=== PATIENT | female | born 1950 | race Caucasian/White ===

== ENCOUNTER 2017-10-18 19:23 | Observation (INO) | payer OTHER ==
--- OUTSIDE RECORDS SUMMARY | 2017-10-18 19:24 | XMS REPORT ---
:1950 Author Organization [facility] Address [address] [place] [address] Care Team Providers Name Role Phone JORGE ESPINOZA Primary Care Provider Unavailable JORGE ESPINOZA Unavailable Unavailable Problems This patient has no known problems. Allergies, Adverse Reactions, Alerts This patient has no known allergies or adverse reactions. Medications This patient has no known medications. Results Test Description Test Time Test Comments Text Results Atomic Results Result Comments CBC with Differential 2017-03-30 23:33:00 Test Item Value Reference Range Comments WBC (test code=WBC) 10.6 K/cumm 4.4-10.5 RBC (test code=RBC) 4.59 M/cumm 3.75-5.20 Hemoglobin (test code=HGB) 14.4 gm/dL 12.2-14.8 Hematocrit (test code=HCT) 45.9 % 36.5-44.4 MCV (test code=MCV) 100.1 fL 80-100 MCH (test code=MCH) 31.3 pg 27.0-32.5 MCHC (test code=MCHC) 31.3 g/dL 32.0-37.5 RDW (test code=RDW) 13.6 % 11.5-14.5 Platelet Count (test code=PLTCT) 264 K/cumm 140-440 MPV (test code=MPV) 10.7 fL Diff Method (test code=DIFFM) Auto Neutrophil (test code=NEUT) 59.5 % 36-70 Lymphocyte (test code=LYMPH) 32.4 % 12-44 Monocyte (test code=MONO) 6.4 % 0-11 Eosinophil (test code=EOS) 0.9 % 0-7 Basophil (test code=BASO) 0.7 % 0-2 Neutro Abs (test code=ANEUT) 6.3 K/cumm 1.6-7.4 Lymph Abs (test code=ALYMPH) 3.4 K/cumm 0.5-4.6 [place] Abs (test code=AMONO) 0.7 K/cumm 0.0-1.2 Eos Abs (test code=AEOS) 0.10 K/cumm 0.00-0.74 Baso Abs (test code=ABASO) 0.1 K/cumm 0.00-0.21 Lipid [id number] 23:22:00 Test Item Value Reference Range Comments Cholesterol (test 136 mg/dL 0-200 code=CHOL) Triglycerides (test 100 mg/dL 9-200 code=TRIG) HDL (test code=HDL) 53 mg/dL 50-60 Chol/HDL (test 2.6 Ratio 0.0-4.4 code=CHOLPHDL) LDL, Calculated (test 63 mg/dL 0-130 (NOTE)RISK OF HEART code=LDLC) DISEASEPublished by Jamaican Heart AssociationAnalyte Optimal Boderline Increased RiskCHOL <200 200-239 >240TRIG <150 150-199 >200HDL Male: >60 <40HDL Female: >60 <50LDL <100 130-159 >160LDL NEAR OPTIMAL IS 100-129 VLDL (test code=VLDL) 20 mg/dL 5-40 LDL/HDL (test code=LDLPHDL) 1 Comprehensive Metabolic [id number] 23:22:00 Test Item Value Reference Range Comments Sodium (test code=NA) 130 mmol/L 135-145 Potassium (test code=K) 4.1 mmol/L 3.5-5.1 Chloride (test code=CL) 93 mmol/L 98-105 Carbon Dioxide (test 25 mmol/L 22-29 code=CO2) Glucose (test code=GLU) 95 mg/dL 70-115 Blood Urea Nitrogen 10 mg/dL 8-23 (test code=BUN) Creatinine (test 0.9 mg/dL 0.5-0.9 code=CREAT) Calcium (test code=CA) 10.0 mg/dL 8.3-10.5 Prot Total (test 7.0 g/dL 6.4-8.3 code=TP) Albumin (test code=ALB) 4.4 g/dL 3.5-5.2 A/G Ratio (test 1.7 Ratio code=AGRATIO) Globulin (test 2.6 2.9-3.1 code=GLOB) Bili Total (test 0.4 mg/dL 0.1-0.9 code=TBIL) Alk Phos (test 118 U/L 35-104 code=APHOS) AST (test code=AST) 17 U/L 1-32 ALT (test code=ALT) 10 U/L 1-33 BUN/Creatinine Ratio 11.1 (test code=BCRATIO) Anion Gap (test 12 mmol/L 7-16 code=AGAP) Estimated GFR (test >60 eGFR (estimated Glomerular code=GFR) mL/min/1.73m2 Filtration Rate) is an estimated value,calculated from the patient's serum creatinine using the MDRD equation.It is NOT the patient's actual GFR. The eGFR provides a more clinicallyuseful measure of kidney disease than serum creatinine alone.This calculation takes sex and race into account, if the informationis provided. If the race is not provided, and the patient isAfrican-Jamaican, multiply by 1.212. If sex is not provided, and thepatient is female, multiply by 0.742. Results for patients <18 years ofage have not been validated by the MDRD study and should be interpretedwith caution.eGFR Result Interpretation:eGFR > or=60 is in the Normal RangeeGFR < 60 may mean kidney diseaseeGFR < 15 may mean kidney failureRanges recommended by the National Kidney Foundation,http://nkdep.ni h.gov
[2017-10-18 20:21] LABS: Absolute Monocytes 1.2 K/uL (0.1-1.3); Absolute Neutrophil 5.7 K/uL (1.8-8.0); Basophils % 1.2 % (0-1.3); Eosinophils % 5.3 % (0-4.4); Lymphocytes % 34.4 % (15.3-44.8); MCH 31.2 pg (27.0-35.0); MCV 92.6 fL (80-100); MPV 11.3 fL (7.6-11.3); Monocytes % 10.6 % (3.3-12.3); RBC Red Blood Cell Count 4.32 M/uL (3.86-4.86)
--- NOTE | 2017-10-18 20:27 | RAD REPORT ---
EXAM DESCRIPTION: CT - Head Brain Wo Cont - 10/18/2017 8:18 pm CLINICAL HISTORY: Weakness, dizziness COMPARISON: CT head December 2016 TECHNIQUE: Axial 5 mm thick images of the head were obtained without IV contrast. All CT scans are performed using dose optimization technique as appropriate and may include automated exposure control or mA/KV adjustment according to patient size. FINDINGS: No intracranial hemorrhage, mass, edema or shift of mid-line structures. No acute cortical based infarction identified. No cortical edema or sulcal effacement. No significant atrophy changes are present. Focal decreased attenuation is seen in the bilateral parietal white matter, right greate r than left. This generally matches the December examination. White matter chronic ischemic change can ea sily mask nonhemorrhagic infarction. There is questionable extension into the splenium of the corpus callosum. No abnormal extra-axial fluid collections. Ventricles are normal. Mastoid air cells and visualized portions of the paranasal sinuses are clear. No acute bony findings. IMPRESSION: No hemorrhage, mass or acute cortical based infarction. Bilateral parietal white matter signal abnormalities similar or only slightly larger than December 2016. There is questionable extension into the splenium of the corpus callosum. White matter areas are most likely chronic ischemic change though the pattern is somewhat unusual. Fo llowup MR imaging would be recommended to evaluate for acute ischemic change or a more aggressive bra in parenchymal process.
[2017-10-18 20:32] LABS: Potassium 4.4 mEq/L (3.6-5.0); Protime INR 0.9
[2017-10-18 20:38] LABS: Albumin 4.1 g/dL (3.2-5.5); Bilirubin Direct 0.1 mg/dL (0-0.2); Bilirubin Total 0.4 mg/dL (0.3-1.2); Protein, Total 6.8 g/dL (6.0-8.3)
[2017-10-18 20:41] LABS: CKMB Creatine Kinase MB 2.1 ng/ml (0.3-4.0)
[2017-10-18] MEDS ORDERED: MECLIZINE HCL 12.5 MG TAB ONE (20:50)
[2017-10-18] MEDS ORDERED: NA CHLORIDE 0.9% 500 ML ONE (20:50)
[2017-10-18] MEDS ORDERED: ONDANSETRON 4 MG/2 ML VIAL ONE (20:50)
--- NOTE | 2017-10-18 22:13 | EDPHYS ---
Physician Documentation [facility] Name: Germania Bañuelos Age: 67 yrs Sex: Female : 1950 Arrival Date: 10/18/2017 Time: 19:26 Bed 25 Private MD: ED Physician Salo Piper HPI: 10/18 19:51 This 67 yrs old Female presents to ER via Ambulatory with complaints of rn Dizziness, Nausea, Vomiting. 19:51 The patient presents with feeling faint, lightheadedness, sense of spinning, vertigo. rn Onset: The symptoms/episode began/occurred just prior to arrival. Modifying factors: The symptoms are alleviated by nothing, the symptoms are aggravated by nothing. Severity of symptoms: At their worst the symptoms were moderate in the emergency department the symptoms have improved. The patient has experienced a previous episode. REports similar symptoms in past, told was vertigo, was feeling fine then had sudden onset of dizziness/feeling faint, threw up, worse with change in position. No head trauma. Reports threw up then felt some discomfort in chest. No abd pain. No fever. No focal neurological complaints. . Historical: - Allergies: 19:31 Demerol; aj 19:31 dorvon; aj 19:31 Tamiflu; aj - Home Meds: 19:31 gabapentin 300 mg Oral cap 1 cap twice a day [Active]; metoprolol tartrate 25 mg Oral aj tab 1 tab 2 times per day [Active]; tramadol 50 mg Oral tab 1 tab every 6 hours [Active]; rosuvastatin 40 mg Oral tab 1 tab once daily [Active]; - PMHx: 19:31 COPD; Hypertension; aj - PSHx: 19:31 Heart stents; aj - Immunization history:: Adult Immunizations up to date. - Social history:: Smoking status: Patient uses tobacco products, denies chronic smoking, but will smoke occasionally. - Family history:: not pertinent. - Hospitalizations: : No recent hospitalization is reported. ROS: 19:51 Constitutional: Negative for fever, chills, and weight loss, Eyes: Negative for injury, rn pain, redness, and discharge, Neck: Negative for injury, pain, and swelling, Cardiovascular: Negative for chest pain, palpitations, and edema, Respiratory: Negative for shortness of breath, cough, wheezing, and pleuritic chest pain, Abdomen/GI: Negative for abdominal pain, diarrhea, and constipation, Back: Negative for injury and pain, MS/Extremity: Negative for injury and deformity, Skin: Negative for injury, rash, and discoloration, Neuro: Negative for headache, weakness, numbness, tingling, and seizure. Exam: 19:51 Constitutional: This is a well developed, well nourished patient who is awake, alert, rn and in no acute distress. Laying down with emesis bag. Head/Face: Normocephalic, atraumatic. Eyes: Pupils equal round and reactive to light, extra-ocular motions intact. Lids and lashes normal. Conjunctiva and sclera are non-icteric and not injected. Cornea within normal limits. Periorbital areas with no swelling, redness, or edema. Neck: Trachea midline, no thyromegaly or masses palpated, and no cervical lymphadenopathy. Supple, full range of motion without nuchal rigidity, or vertebral point tenderness. No Meningismus. Cardiovascular: Regular rate and rhythm with a normal S1 and S2. No gallops, murmurs, or rubs. Normal PMI, no JVD. No pulse deficits. Respiratory: Lungs have equal breath sounds bilaterally, clear to auscultation and percussion. No rales, rhonchi or wheezes noted. No increased work of breathing, no retractions or nasal flaring. Abdomen/GI: Soft, non-tender, with normal bowel sounds. No distension or tympany. No guarding or rebound. No evidence of tenderness throughout. Skin: Warm, dry with normal turgor. Normal color with no rashes, no lesions, and no evidence of cellulitis. MS/ Extremity: Pulses equal, no cyanosis. Neurovascular intact. Full, normal range of motion. Equal circumference. Neuro: Awake and alert, GCS 15, oriented to person, place, time, and situation. Cranial nerves II-XII grossly intact. Motor strength 5/5 in all extremities. Sensory grossly intact. Cerebellar exam normal including normal finger to nose and heel to jason. No truncal instability. 20:02 ECG was reviewed by the Attending Physician. rn Vital Signs: 19:31 BP 155 / 62; Pulse 71; Resp 19; Temp 97.9; Pulse Ox 98% on R/A; Weight 56.7 kg; Height aj 5 ft. 0 in. (152.40 cm); Pain 0/10; 21:00 BP 137 / 66; Pulse 74; Resp 16; Pulse Ox 98% on R/A; kr2 22:16 BP 143 / 79; Pulse 79; Resp 15; Pulse Ox 96% on R/A; kr2 23:34 BP 137 / 69; Pulse 79; Resp 16; Pulse Ox 97% on R/A; kr2 19:31 Body Mass Index 24.41 (56.70 kg, 152.40 cm) aj MDM: 19:37 Patient medically screened. rn 21:59 Differential diagnosis: CVA, hypovolemia, idiopathic dizziness, TIA, vertigo. Data rn reviewed: vital signs, nurses notes, lab test result(s), EKG, radiologic studies, CT scan, and as a result, I will admit patient. Counseling: I had a detailed discussion with the patient and/or guardian regarding: the historical points, exam findings, and any diagnostic results supporting the discharge/admit diagnosis, lab results, radiology results, the need for further work-up and treatment in the hospital. Response to treatment: the patient's symptoms have mildly improved after treatment, and as a result, I will admit patient. Admission orders: after a detailed discussion of the patient's condition and case, the admit orders are written by me. ED course: Pt with CT showing either chronic changes vs area of unusual pattern, still nauseous and dizzy, clinically sounds like vertigo, will observe overnight, get MRI in AM to further eval unusual pattern on CT head. . ED course: Pt unsure if wants to be admitted, will call her family and I will check back with her in a little bit.. 22:11 ED course: Admitted for Dr. Calderón. . rn 22:12 ED course: Pt ambulating to bathroom without assistance, seems better but not back to rn baseline. No evidence of acute CVA. . 10/18 19:45 Order name: Urine Microscopic Only; Complete Time: 22: rn 10/18 19:45 Order name: Basic Metabolic Panel; Complete Time: : rn 10/18 19:45 Order name: CBC with Diff; Complete Time: 20: rn 10/18 19:45 Order name: Ckmb; Complete Time: : rn 10/18 19:45 Order name: CPK; Complete Time: 21: rn 10/18 19:45 Order name: Hepatic Function; Complete Time: 21:29 rn 10/18 19:45 Order name: CT Head Brain wo Cont; Complete Time: 20:36 rn 10/18 19:45 Order name: Lipase; Complete Time: 21:29 rn 10/18 19:45 Order name: Protime (+inr); Complete Time: 20:36 rn 10/18 19:45 Order name: Ptt, Activated; Complete Time: 20:36 rn 10/18 19:45 Order name: Troponin (emerg Dept Use Only); Complete Time: 21:29 rn 10/18 22:14 Order name: Urine Dipstick--Ancillary (enter results); Complete Time: 22:23 em1 04 19:45 Order name: EKG; Complete Time: 19:46 rn 10/18 19:45 Order name: Cardiac monitoring; Complete Time: 20:40 rn 10/18 19:45 Order name: EKG - Nurse/Tech; Complete Time: 20:40 rn 10/18 19:45 Order name: IV Saline Lock; Complete Time: 20:41 rn 10/18 19:45 Order name: Labs collected and sent; Complete Time: 20:41 rn 10/18 19:45 Order name: NPO; Complete Time: 20:41 rn 10/18 19:45 Order name: O2 Per Protocol; Complete Time: 20:41 rn 10/18 19:45 Order name: O2 Sat Monitoring; Complete Time: 20:41 rn 10/18 19:45 Order name: Urine Dipstick-Ancillary (obtain specimen); Complete Time: 22:09 rn EC:02 Rate is 77 beats/min. Rhythm is regular. QRS [place] is Normal. OK interval is normal. QRS rn interval is normal. QT interval is normal. No Q waves. T waves are Flattened in lead V2. No ST changes noted. Clinical impression: NSR w/ Non-specific ST/T Changes. Interpreted by me. Administered Medications: 20:30 Drug: Zofran 4 mg Route: IVP; Site: left antecubital; kr2 21:20 Follow up: Response: No adverse reaction; Nausea is decreased kr2 20:30 Drug: NS 0.9% 500 ml Route: IV; Rate: bolus; Site: left antecubital; kr2 21:20 Follow up: Response: No adverse reaction; IV Status: Completed infusion kr2 20:40 Drug: Meclizine 50 mg Route: PO; kr2 21:20 Follow up: Response: No adverse reaction; Other; dizziness and nausea decreased kr2 Disposition: 10/18/17 22:11 Hospitalization ordered by Kristyn Hunter for Observation. Preliminary diagnosis is Vertigo. - Bed requested for Telemetry/MedSurg (observation). - Status is Observation. kr2 - Condition is Stable. - Problem is new. - Symptoms have improved. UTI on Admission? No Signatures: Dispatcher [employer] Macie Juarez RN RN Vaishnavi English RN RN fc Nieto, Roman, MD MD rn Reaves, Karey, RN RN kr2
--- NOTE | 2017-10-18 22:13 | ER ---
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 Transition of care: patient was not received from another setting of care. Onset of symptoms was October 18, 2017. Care prior to arrival: None. 19:29 Method Of Arrival: Ambulatory 19:29 Acuity: MIGUEL 3 aj Triage Assessment: 19:31 General: Appears in no apparent distress. ill, Behavior is calm, cooperative, aj appropriate for age. Pain: Denies pain. Neuro: Level of Consciousness is awake, alert, obeys commands, Oriented to person, place, time, situation. 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 Full function Gait is steady, Speech is normal, Facial symmetry appears normal, Reports dizziness. Respiratory: Airway is patent Respiratory effort is even, unlabored, Respiratory pattern is regular, symmetrical. GI: Reports nausea, vomiting. Derm: Skin is intact, is healthy with good turgor, Skin is pink, warm \T\ dry. normal. Historical: - Allergies: 19:31 Demerol; aj 19:31 dorvon; aj 19:31 Tamiflu; aj - Home Meds: 19:31 gabapentin 300 mg Oral cap 1 cap twice a day [Active]; metoprolol tartrate 25 mg Oral aj tab 1 tab 2 times per day [Active]; tramadol 50 mg Oral tab 1 tab every 6 hours [Active]; rosuvastatin 40 mg Oral tab 1 tab once daily [Active]; - PMHx: 19:31 COPD; Hypertension; aj - PSHx: 19:31 Heart stents; aj - Immunization history:: Adult Immunizations up to date. - Social history:: Smoking status: Patient uses tobacco products, denies chronic smoking, but will smoke occasionally. - Family history:: not pertinent. - Hospitalizations: : No recent hospitalization is reported. Screenin:40 Fall Risk Secondary diagnosis (15 points) dizziness. IV access (20 points). kr2 22:14 Abuse screen: Denies threats or abuse. Denies injuries from another. Nutritional kr2 screening: No deficits noted. Tuberculosis screening: No symptoms or risk factors identified. Assessment: 19:40 General: Appears in no apparent distress. comfortable, well groomed, well developed, kr2 well nourished, Behavior is calm, cooperative, appropriate for age. Pain: Denies pain. Neuro: Level of Consciousness is awake, alert, obeys commands, Oriented to person, place, time, situation, Appropriate for age. Neuro: Reports dizziness, since a couple of hours ago. Cardiovascular: Heart tones S1 S2 present Capillary refill < 3 seconds in bilateral fingers Patient's skin is warm and dry. Rhythm is sinus rhythm. Respiratory: Airway is patent Respiratory effort is even, unlabored, Respiratory pattern is regular, symmetrical. GI: Abdomen is flat, non-distended, Bowel sounds present X 4 quads. Reports nausea, vomiting. : No signs and/or symptoms were reported regarding the genitourinary system. Denies burning with urination. EENT: Nares are clear bilaterally Oral mucosa is moist. Derm: Skin is intact, with poor turgor Skin is pink, warm \T\ dry. Musculoskeletal: Circulation, motion, and sensation intact. 21:00 Reassessment: Patient appears in no apparent distress at this time. Patient and/or kr2 family updated on plan of care and expected duration. Pain level reassessed. Patient is alert, oriented x 3, equal unlabored respirations, skin warm/dry/pink. 22:00 Reassessment: Patient appears in no apparent distress at this time. Patient and/or kr2 family updated on plan of care and expected duration. Pain level reassessed. Assisted patient to restroom. States she is not as dizzy. She did have some difficulty with balance and had to have standby assistance. 22:11 Reassessment: Patient appears in no apparent distress at this time. Patient and/or kr2 family updated on plan of care and expected duration. Pain level reassessed. Patient is alert, oriented x 3, equal unlabored respirations, skin warm/dry/pink. Patient denies pain at this time. Patient states feeling better. Patient states symptoms have improved. 23:15 Reassessment: Patient appears in no apparent distress at this time. Patient and/or kr2 family updated on plan of care and expected duration. Pain level reassessed. Patient is alert, oriented x 3, equal unlabored respirations, skin warm/dry/pink. Dr. Phillip at bedside examining patient Patient states feeling better. Vital Signs: 19:31 BP 155 / 62; Pulse 71; Resp 19; Temp 97.9; Pulse Ox 98% on R/A; Weight 56.7 kg; Height aj 5 ft. 0 in. (152.40 cm); Pain 0/10; 21:00 BP 137 / 66; Pulse 74; Resp 16; Pulse Ox 98% on R/A; kr2 22:16 BP 143 / 79; Pulse 79; Resp 15; Pulse Ox 96% on R/A; kr2 23:34 BP 137 / 69; Pulse 79; Resp 16; Pulse Ox 97% on R/A; kr2 19:31 Body Mass Index 24.41 (56.70 kg, 152.40 cm) ED Course: 19:26 Patient arrived in ED. es 19:30 Triage completed. aj 19:31 Arm band placed on left wrist. Patient placed in an exam room. aj 19:37 Salo Piper MD is Attending Physician. rn 19:40 Patient has correct armband on for positive identification. Bed in low position. Call kr2 light in reach. Side rails up X2. night monitor on. Pulse ox on. NIBP on. Sitter at bedside. Door closed. Lights dimmed. Warm blanket given. Head of bed elevated. 19:52 Inna Lainez, RN is Primary Nurse. kr2 20:15 Inserted saline lock: 22 gauge in left antecubital area, using aseptic technique. Blood kr2 collected. 20:17 CT completed. Patient tolerated procedure well. Patient moved to CT via stretcher. fl Patient moved back from CT. 20:18 CT Head Brain wo Cont In Process Unspecified. EDMS 22:00 Urine collected: clean catch specimen, clear. kr2 22:11 Kristyn Hunter MD is Hospitalizing Provider. rn 23:35 No provider procedures requiring assistance completed. Patient admitted, IV remains in kr2 place. Administered Medications: 20:30 Drug: Zofran 4 mg Route: IVP; Site: left antecubital; kr2 21:20 Follow up: Response: No adverse reaction; Nausea is decreased kr2 20:30 Drug: NS 0.9% 500 ml Route: IV; Rate: bolus; Site: left antecubital; kr2 21:20 Follow up: Response: No adverse reaction; IV Status: Completed infusion kr2 20:40 Drug: Meclizine 50 mg Route: PO; kr2 21:20 Follow up: Response: No adverse reaction; Other; dizziness and nausea decreased kr2 Intake: Outcome: 22:11 Decision to Hospitalize by Provider. rn 23:35 Condition: improved kr2 23:41 Admitted to Med/surg accompanied by tech, via wheelchair, room 211, with chart, Report kr2 called to Eugenie 23:41 Instructed on the need for admit, Demonstrated understanding of instructions. 10/19 00:39 Patient left the ED. kr2 Signatures: Dispatcher [employer] Macie Juarez RN RN aj Salyer, Edna es Nieto, Roman, MD MD rn Jordan, Nathan nj Reaves, Karey, RN RN kr2
[2017-10-18 22:16] LABS: Urine Blood TRACE (NEG); Urine Glucose NEGATIVE (NEG); Urine Protein NEGATIVE (NEG)
[2017-10-18 22:21] LABS: Urine Bacteria <20 /HPF (<20); Urine Culture Reflex Order NOT NEEDED; Urine Mucus NS /HPF (NONE SEEN)
[2017-10-18] MEDS ORDERED: MECLIZINE HCL 12.5 MG TAB PO PRN (23:56)
[2017-10-18] MEDS ORDERED: ONDANSETRON 4 MG/2 ML VIAL IV PRN (23:56)
[2017-10-18] MEDS ORDERED: ACETAMINOPHEN 500 MG TAB PO PRN (23:56)
[2017-10-19 00:40] VITALS: BMI 23.1
[2017-10-19 00:49] VITALS: O2SAT 97
--- NOTE | 2017-10-19 01:15 | P.HP ---
Certification for Inpatient Patient admitted to: Observation With expected LOS: <2 Midnights Practitioner: I am a practitioner with admitting privileges, knowledge of patient current condition, hospital course, and medical plan of care. Services: Services provided to patient in accordance with Admission requirements found in Title 42 Section 412.3 of the Code of Federal Regulations Patient History Date of Service: 10/18/17 Reason for admission: vertigo History of Present Illness: Ms Bañuelos is a 67 years old woman with history of COPD, HTN, CAD who came to ED complaining of dizziness associated with nausea and vomiting. Her symptoms started this afternoon. She denied any weakness, numbness or tingling. She has had similar episodes in the past. She denied any fever or chills, no chest pain or SOB. The dizziness is constant. Her symptoms gradually improved in ED after receive Meclizine. At my encounter the patient felt better already. Allergies meperidine [From Demerol] Allergy (Verified 12/09/16 00:58) Hives/Rash oseltamivir [From Tamiflu] Allergy (Verified 12/09/16 00:58) Hives/Rash dorvon Allergy (Uncoded 12/09/16 02:05) Unknown Home Medications: Gabapentin [Gralise] 1 pill PO BID 12/09/16 Metoprolol Tartrate 1 pill PO BID 12/09/16 Rosuvastatin Calcium 1 pill PO DAILY 12/09/16 Tramadol HCl [Ultram] 1 pill PO Q6HR PRN 12/09/16 Aspirin Tab [Yary Aspirin*] 1 tab PO DAILY 10/19/17 - Past Medical/Surgical History Has patient received pneumonia vaccine in the past: No Diabetic: No -: Hypertension -: COPD -: Cholesterol -: CAD -: Stent X1 - Family History Father -: Hypertension, Cancer Notes: pancretic Mother -: Hypertension Sister -: Cancer Notes: Cervical - Social History Smoking Status: Current every day smoker Counseled patient to stop smoking for: less than 10 minutes Alcohol use: No CD- Drugs: No Caffeine use: Yes Place of Residence: Home Review of Systems 10-point ROS is otherwise unremarkable Physical Examination - Vital Signs Temperature: 97.9 F Blood Pressure: 115/59 Pulse: 78 Respirations: 16 Pulse Ox (%): 97 - Physical Exam General: Alert, In no apparent distress HEENT: Atraumatic, PERRLA, Mucous membr. moist/pink, EOMI, Sclerae nonicteric Neck: Supple, 2+ carotid pulse no bruit, No LAD, Without JVD or thyroid abnormality Respiratory: Clear to auscultation bilaterally, Normal air movement Cardiovascular: Regular rate/rhythm, Normal S1 S2 Gastrointestinal: Normal bowel sounds, No tenderness Musculoskeletal: No tenderness Integumentary: No rashes Neurological: Normal speech, Normal strength at 5/5 x4 extr, Normal tone, Normal affect, Other (horizontal nistagmus to the right.) Lymphatics: No axilla or inguinal lymphadenopathy - Studies Laboratory Data (last 24 hrs) 10/18/17 20:10: PT 10.6, INR 0.90, APTT 20.8 L 10/18/17 20:10: WBC 11.8 H, Hgb 13.5, Hct 40.0, Plt Count 209 10/18/17 20:10: Sodium 135, Potassium 4.4, BUN 15, Creatinine 0.92, Glucose 116 , Total Bilirubin 0.4, AST 18, ALT 14, Alkaline Phosphatase 80, Lipase 26 Assessment and Plan - Problems (Diagnosis) (1) Vertigo Current Visit: Yes Status: Acute (2) HTN (hypertension) Current Visit: No Status: Acute Qualifiers: Hypertension type: essential hypertension Qualified Code(s): I10 - Essential (primary) hypertension (3) Tobacco abuse Current Visit: No Status: Acute - Plan The patient will be admitted to the hospital due to Vertigo. Her symptoms are improving already. It is concerning, however, CT head finding. Report states, no acute abnormalities however bilateral parietal white matter signal abnormalities similar or only slightly larger than December 2016. White matter areas are most likely chronic ischemic change though the pattern is somewhat unusual. Followup MR imaging would be recommended to evaluate for acute ischemic change or a more aggressive brain parenchymal process. MRI of the brain has been ordered. Also neurologist evaluation. Will continue with Meclizine as needed. - Advance Directives Does patient have a Living Will: No Does patient have a Durable POA for Healthcare: No - Code Status/Comfort Care Code Status Assessed: Yes Code Status: Full Code
[2017-10-19 05:14] LABS: Absolute Monocytes 1.2 K/uL (0.1-1.3); Basophils % 0.9 % (0-1.3); Eosinophils % 1.5 % (0-4.4); Hematocrit 38.6 % (36.0-45.0); Lymphocytes % 31.8 % (15.3-44.8); MCH 30.8 pg (27.0-35.0); MCV 94.1 fL (80-100); MPV 11.7 fL (7.6-11.3); Monocytes % 9.9 % (3.3-12.3)
[2017-10-19 05:39] LABS: Potassium 4.6 mEq/L (3.6-5.0)
--- NOTE | 2017-10-19 07:35 | EKG ---
Test Date: 2017-10-18 Test Time: 19:59:32 Mobile Disc Jockey: CARYN MEASUREMENT RESULTS: Intervals: Rate: 77 MS: 190 QRSD: 84 QT: 396 QTc: 448 [place]: P: 73 MS: 190 QRS: -81 T: 69 INTERPRETIVE STATEMENTS: Normal sinus rhythm Left axis deviation Septal infarct, age undetermined Abnormal ECG Compared to ECG 12/10/2016 06:37:44 Left-axis deviation now present Myocardial infarct finding now present Left anterior fascicular block no longer present Electronically Signed On 10-19-17 07:34:51 CDT by Bladimir Nelson
[2017-10-19] MEDS ORDERED: PNEUMOCOCCAL VACCINE 0.5 ML IMVAC ONE (08:00)
[2017-10-19] MEDS ORDERED: TRAMADOL HCL 50 MG TAB PO PRN (08:46)
[2017-10-19] MEDS ORDERED: MECLIZINE HCL 12.5 MG TAB PO PRN (08:47)
[2017-10-19] MEDS ORDERED: ASPIRIN 325 MG TAB PO SCH (09:00)
[2017-10-19] MEDS ORDERED: METOPROLOL TAR 25 MG TAB PO SCH (09:00)
[2017-10-19] MEDS ORDERED: ENOXAPARIN 40 MG/0.4 ML SQ SCH (09:00)
[2017-10-19] MEDS ORDERED: GABAPENTIN 300 MG CAP PO SCH (09:00)
--- NOTE | 2017-10-19 09:53 | EKG ---
Test Date: 2017-10-18 Test Time: 20:00:34 Clinical Staff Pharmacist: CARYN MEASUREMENT RESULTS: Intervals: Rate: 0 VT: QRSD: 0 QT: 0 QTc: 0 [place]: P: VT: QRS: 0 T: 0 INTERPRETIVE STATEMENTS: No QRS complexes found, no ECG analysis possible Compared to ECG 10/18/2017 19:59:32 impossible to compare Electronically Signed On 10-19-17 09:52:14 CDT by Keron Boyd
--- NOTE | 2017-10-19 10:01 | RAD REPORT ---
EXAM DESCRIPTION: MRI - Brain W/Wo Cont - 10/19/2017 7:58 am CLINICAL HISTORY: Headache, CVA symptomology. COMPARISON: CT head 12/25/2016, 10/18/2016 TECHNIQUE: Multi-sequence, multiplanar MR imaging of the brain was performed with contrast. FINDINGS: No intracranial hemorrhage, hydrocephalus, extra-axial fluid collection or acute infarctio n.Prominent areas of T2/FLAIR hyperintensity noted in the posterior parietal lobe white matter, great er on the right. These areas show no diffusion restriction or postcontrast enhancement. No midline sh ift is evident.No intracranial mass. DWI is negative for acute CVA. The midline structures are normally formed. Mastoid air cells and paranasal sinuses are clear. Post-contrast images show no abnormal enhancement to suggest tumor or infection. IMPRESSION: Negative for acute CVA or other acute intracranial process. Prominent T2/FLAIR hyperintensity in the parietal lobe white matter, greater on the right.These areas do not demonstrate aggressive features such as post-contrast enhancement or diffusion-weighted signa l abnormality. Chronic microvascular ischemic changes is the favored etiology.
[2017-10-19 11:11] LABS: Thyroid Stimulating Hormone 0.29 uIU/mL (0.34-5.60)
--- NOTE | 2017-10-19 11:36 | ECHO ---
HEIGHT: 5 ft 0 in WEIGHT: 118 lb 11.2 oz DATE OF STUDY: 10/19/[address]: Naga Hou DO 2-DIMENSIONAL: YES M.MODE: YES DOPPLER: YES COLOR FLOW: YES TDS: NO PORTABLE: NO DEFINITY: NO BUBBLE STUDY: NO DIAGNOSIS: DIZZINESS, HYPERTENSION CARDIAC HISTORY: CATHERIZATION: YES SURGERY: NO PROSTHETIC VALVE: NO PACEMAKER: NO MEASUREMENTS (cm) DIASTOLIC (NORMALS) SYSTOLIC (NORMALS) IVSd 0.8 (0.6-1.2) LA Diam 2.8 (1.9-4.0) LVEF 78% LVIDd 3.7 (3.5-5.7) LVIDs 2.0 (2.0-3.5) %FS 45% LVPWd 0.8 (0.6-1.2) Ao Diam 2.8 (2.0-3.7) 2 DIMENSIONAL ASSESSMENT: RIGHT ATRIUM: NORMAL LEFT ATRIUM: NORMAL RIGHT VENTRICLE: NORMAL LEFT VENTRICLE: NORMAL TRICUSPID VALVE: NORMAL MITRAL VALVE: NORMAL PULMONIC VALVE: NORMAL AORTIC VALVE: NORMAL PERICARDIAL EFFUSION: NONE AORTIC ROOT: NORMAL LEFT VENTRICULAR WALL MOTION: NORMAL DOPPLER/COLOR FLOW: PHYSIOLOGIC TRICUSPID REGURGITATION. NORMAL RIGHT VENTRICULAR SYSTOLIC PRESSURE. COMMENTS: NORMAL 2D ECHOCARDIOGRAM WITH DOPPLER. TECHNOLOGIST: Kristy SANDY
--- NOTE | 2017-10-19 11:40 | RAD REPORT ---
EXAM DESCRIPTION: DANIEL - CP - 10/19/2017 9:34 am CLINICAL HISTORY: Hypertension, dizziness and syncope. COMPARISON: None. TECHNIQUE: Real-time sonographic evaluation of both carotid systems was performed. Doppler interroga tion was performed with waveform tracing bilaterally. FINDINGS: Normal high resistance waveforms are noted in both external carotid arteries. The common c arotid arteries and internal carotid arteries show normal low resistance waveforms. Intimal thickening is present bilaterally. Focal hard plaquing is seen in the mid and distal left com mon carotid artery. Peak systolic and end diastolic velocity values and the ICA/CCA ratios are in the non-hemodynamically significant range. Antegrade flow seen in both vertebral arteries. IMPRESSION: Mild left common carotid artery focal hard plaquing. No evidence of a hemodynamically significant stenosis.
--- NOTE | 2017-10-19 12:15 | P.DS ---
Admission Date: 10/18/17 Discharge Date: 10/19/17 Primary Care Provider: None, cardiology-Dr. Nelson Disposition: ROUTINE DISCHARGE Discharge Condition: GOOD Reason for Admission: vertigo Procedures: MRI: FINDINGS: No intracranial hemorrhage, hydrocephalus, extra-axial fluid collection or acute infarction.Prominent areas of T2/FLAIR hyperintensity noted in the posterior parietal lobe white matter, greater on the right. These areas show no diffusion restriction or postcontrast enhancement. No midline shift is evident.No intracranial mass. DWI is negative for acute CVA. The midline structures are normally formed. Mastoid air cells and paranasal sinuses are clear. Post-contrast images show no abnormal enhancement to suggest tumor or infection. IMPRESSION: Negative for acute CVA or other acute intracranial process. Prominent T2/FLAIR hyperintensity in the parietal lobe white matter, greater on the right.These areas do not demonstrate aggressive features such as post- contrast enhancement or diffusion-weighted signal abnormality. Chronic microvascular ischemic changes is the favored etiology. CT scan:FINDINGS: No intracranial hemorrhage, mass, edema or shift of mid-line structures. No acute cortical based infarction identified. No cortical edema or sulcal effacement. No significant atrophy changes are present. Focal decreased attenuation is seen in the bilateral parietal white matter, right greater than left. This generally matches the [place] examination. White matter chronic ischemic change can easily mask nonhemorrhagic infarction. There is questionable extension into the splenium of the corpus callosum. No abnormal extra-axial fluid collections. Ventricles are normal. Mastoid air cells and visualized portions of the paranasal sinuses are clear. No acute bony findings. IMPRESSION: No hemorrhage, mass or acute cortical based infarction. Bilateral parietal white matter signal abnormalities similar or only slightly larger than December 2016. There is questionable extension into the splenium of the corpus callosum. White matter areas are most likely chronic ischemic change though the pattern is somewhat unusual. Followup MR imaging would be recommended to evaluate for acute ischemic change or a more aggressive brain parenchymal process. Echocardiogram: Normal ejection fraction otherwise unremarkable. Ejection fraction 70%. Carotid Doppler: Left carotid plaque noted. Without significant stenosis. - Problems (1) Hyperlipidemia Current Visit: Yes Status: Chronic Qualifiers: Hyperlipidemia type: unspecified Qualified Code(s): E78.5 - Hyperlipidemia , unspecified (2) CAD (coronary artery disease) Current Visit: Yes Status: Chronic Qualifiers: Coronary Disease-Associated Artery/Lesion type: unspecified vessel or lesion type [place] vs. transplanted heart: unspecified whether [place] or transplanted heart Associated angina: angina presence unspecified Qualified Code(s): I25.10 - Atherosclerotic heart disease of [place] coronary artery without angina pectoris (3) HTN (hypertension) Onset Date: 10/19/17 Current Visit: Yes Status: Chronic Qualifiers: Hypertension type: essential hypertension Qualified Code(s): I10 - Essential (primary) hypertension (4) Tobacco abuse Onset Date: 10/19/17 Current Visit: Yes Status: Chronic (5) Vertigo Onset Date: 10/19/17 Current Visit: Yes Status: Acute (6) Chronic pain Current Visit: Yes Status: Chronic Qualifiers: Chronic pain type: chronic pain syndrome Qualified Code(s): G89.4 - Chronic pain syndrome Brief History of Present Illness: 67-year-old female presented emergency room with vertigo. This was associated with nausea and vomiting. No chest pain or shortness of breath was noted. The patient was evaluated in the emergency room. CT scan showed no acute changes other than chronic ischemic changes. The patient was admitted for further evaluation. Hospital Course: During the course of her stay her vertigo resolved. Actually when the patient was given meclizine her symptoms improved. When I evaluated the patient she was without any significant dizziness or nausea. Patient had MRI showing no acute CVA. White matter changes were noted likely from chronic ischemic changes. Patient has underlying hypertension and smokes. Patient also has a history of CAD. Carotid Doppler showed no acute stenosis. Echocardiogram was unremarkable with an ejection fraction 78%. Patient was able to ambulate well. At discharge patient may continue with meclizine 12.5 mg 1 pill 3 times a day as needed for dizziness. Patient may follow up with neurology and/or ENT as an outpatient to further evaluate if symptoms persist. Fall precautions will be provided. Patient with hypertension. This remained stable during her stay. Patient will continue with her medication-metoprolol. Recommendation is to maintain blood pressures less 150/80. Further adjustment can be done by her PCP. Patient has hyperlipidemia. Lipid panel was unremarkable. Patient will continue with her medication-Crestor. Patient has chronic pain. She may continue with her pain medication. She will follow up with chronic pain management. Tobacco cessation education will be provided. Vital Signs/Physical Exam: Temp Pulse Resp BP Pulse Ox 97.4 F 69 18 134/62 97 10/19/17 08:00 10/19/17 09:45 10/19/17 08:00 10/19/17 09:45 10/19/17 08:00 General: Alert, In no apparent distress, Oriented x3, Cooperative HEENT: Atraumatic, Mucous membr. moist/pink Neck: Supple Respiratory: Clear to auscultation bilaterally, Normal air movement Cardiovascular: Normal pulses, Regular rate/rhythm Gastrointestinal: Normal bowel sounds, Soft and benign, Non-distended, No tenderness, No masses, No rebound, No guarding Musculoskeletal: No erythema, No tenderness, No warmth Integumentary: No tenderness/swelling, No erythema, No warmth, No cyanosis Neurological: Normal speech, Normal strength at 5/5 x4 extr, Normal tone, Normal affect Laboratory Data at Discharge: WBC 12.5 K/uL (4.3-10.9) H 10/19/17 04:31 Hgb 12.6 g/dL (12.0-15.0) 10/19/17 04:31 Hct 38.6 % (36.0-45.0) 10/19/17 04:31 Plt Count 213 K/uL (152-406) 10/19/17 04:31 PT 10.6 SECONDS (9.5-12.5) 10/18/17 20:10 INR 0.90 10/18/17 20:10 APTT 20.8 SECONDS (24.3-36.9) L 10/18/17 20:10 Sodium 139 mEq/L (135-145) 10/19/17 04:31 Potassium 4.6 mEq/L (3.6-5.0) 10/19/17 04:31 BUN 12 mg/dL (6-20) 10/19/17 04:31 Creatinine 0.92 mg/dL (0.44-1.00) 10/19/17 04:31 Glucose 101 mg/dL (65-120) 10/19/17 04:31 Total Bilirubin 0.4 mg/dL (0.3-1.2) 10/18/17 20:10 AST 18 IU/L (10-42) 10/18/17 20:10 ALT 14 IU/L (10-60) 10/18/17 20:10 Alkaline Phosphatase 80 IU/L (42-121) 10/18/17 20:10 Triglycerides 69 mg/dL (35-160) 10/19/17 09:05 Cholesterol 95 mg/dL (<200) 10/19/17 09:05 HDL Cholesterol 40 mg/dL (29-89) 10/19/17 09:05 Cholesterol/HDL Ratio 2.38 10/19/17 09:05 Lipase 26 U/L (22-51) 10/18/17 20:10 Home Medications: Gabapentin [Gralise] 1 pill PO BID 12/09/16 Metoprolol Tartrate 1 pill PO BID 12/09/16 Rosuvastatin Calcium 1 pill PO DAILY 12/09/16 Tramadol HCl [Ultram] 1 pill PO Q6HR PRN 12/09/16 Aspirin Tab [Yary Aspirin*] 1 tab PO DAILY 10/19/17 Meclizine HCl [Antivert*] 12.5 mg PO Q6H PRN #15 tab 10/19/17 New Medications: Meclizine HCl [Antivert*] 12.5 mg PO Q6H PRN #15 tab PRN Reason: Dizziness Patient Discharge Instructions: 1. Patient will need to follow up with a PCP in establish care and to follow up this hospitalization. 2. Patient presented with vertigo. MRI showed no acute CVA. Carotid Doppler showed no acute stenosis. Echocardiogram unremarkable. At discharge patient may continue with meclizine 12.5 mg 1 pill 3 times a day as needed for dizziness. Patient may follow up with neurology and/or ENT as an outpatient if this persists. Fall precautions will be provided. 3. Patient with hypertension. Patient will continue with her medication-metoprolol. Recommendation is to maintain blood pressures less 150/80. Further adjustment can be done by her PCP. 4. Patient has hyperlipidemia. Patient will continue with her medication-Crestor. 5. Patient has chronic pain. She may continue with her pain medication. She will follow up with chronic pain management. 6. Tobacco cessation education will be provided. Diet: AHA Activity: Fall precautions Time spent managing pt's care (in minutes): 55
[2017-10-19 13:05] VITALS: BP 107/52; TEMP 99.5
[2017-10-19] MEDS ORDERED: ROSUVASTATIN 10 MG TAB PO SCH (21:00)
== END 2017-10-19 14:32 | disposition home or self-care (01) ==
LOC: ER 19:23 → ERHOLD 22:24 → 2ND 23:42
PROVIDERS: ADMIT Internal Medicine; ATTEND Internal Medicine
DX: G89.29 Other chronic pain; J44.9 Chronic obstructive pulmonary disease, unspecified; I25.10 Atherosclerotic heart disease of native coronary artery without angina pectoris; Z95.5 Presence of coronary angioplasty implant and graft; I10 Essential (primary) hypertension; E78.5 Hyperlipidemia, unspecified; F17.210 Nicotine dependence, cigarettes, uncomplicated; R42 Dizziness and giddiness
CPT/HCPCS: 36415; 70450; 70553; 80048 ×2; 80061; 80076; 82550; 82553; 83690; 84439; 84443; 84484; 85025 ×2; 85610; 85730; 93005 ×2; 93306; 93880; 96361; 96374; 97163; 99285; A9579; G0378 ×2; J1650; J2405; 81003; 81015; 90670

== ENCOUNTER 2018-03-29 15:48 | Emergency (ER) | payer OTHER ==
--- OUTSIDE RECORDS SUMMARY | 2018-03-29 15:52 | XMS REPORT ---
:1950 [facility] Address [address] [place] [address] Care Team Providers Name Role Phone JORGE [...] Lymph Abs (test code=ALYMPH) 3.4 K/cumm 0.5-4.6 Cuming Abs (test code=AMONO) 0.7 K/cumm 0.0-1.2 Eos Abs (test code=AEOS) 0.10 K/cumm 0.00-0.74 Baso Abs (test code=ABASO) 0.1 K/cumm 0.00-0.21 Lipid [id number] 23:22:00 Test Item Value Reference Range Comments Cholesterol (test 136 mg/dL 0-200 code=CHOL) Triglycerides (test 100 mg/dL 9-200 code=TRIG) HDL (test code=HDL) 53 mg/dL 50-60 Chol/HDL (test 2.6 Ratio 0.0-4.4 code=CHOLPHDL) LDL, Calculated (test 63 mg/dL 0-130 (NOTE)RISK OF HEART code=LDLC) DISEASEPublished by [place] Heart AssociationAnalyte Optimal Boderline Increased RiskCHOL <200 200-239 >240TRIG <150 150-199 >200HDL Male: >60 <40HDL Female: >60 <50LDL <100 130-159 >160LDL NEAR OPTIMAL IS 100-129 VLDL (test code=VLDL) 20 mg/dL 5-40 LDL/HDL (test code=LDLPHDL) 1 Comprehensive Metabolic [id number] 23:22:00 Test Item Value Reference Range Comments [...] mmol/L 7-16 code=AGAP) Estimated GFR (test >60 mL/min/1.73m2 eGFR (estimated Glomerular code=GFR) Filtration Rate) is an estimated value,calculated from the patient's serum creatinine using the MDRD equation.It is NOT the patient's actual GFR. The eGFR provides a more clinicallyuseful measure of kidney disease than serum creatinine alone.This calculation takes sex and race into account, if the informationis provided. If the race is not provided, and the patient isAfrican-[place], multiply by 1.212. If sex is not provided, and thepatient is female, multiply by 0.742. Results for patients <18 years ofage have not been validated by the MDRD study and should be interpretedwith caution.eGFR Result Interpretation:eGFR > or=60 is in the Normal RangeeGFR < 60 may mean kidney diseaseeGFR < 15 may mean kidney failureRanges recommended by the National Kidney Foundation,http://nkdep.nih .gov
--- NOTE | 2018-03-29 16:26 | ER ---
Nurse's Notes [facility] Name: Germania Bañuelos Age: 68 yrs Sex: Female : 1950 Arrival Date: 03/29/2018 Time: 15:53 Bed 12 Private MD: Diagnosis: Bitten or stung by nonvenomous insect and other nonvenomous arthropods;Allergic contact dermatitis Presentation: 03/29 16:02 Presenting complaint: Patient states: allergic reaction to bilateral arms and upper sv back. Pt reports getting bitten by an unknown insect. c/o itching. Transition of care: patient was not received from another setting of care. Onset of symptoms was March 25, 2018. Care prior to arrival: None. 16:02 Method Of Arrival: Ambulatory sv 16:02 Acuity: MIGUEL 4 sv 16:37 Risk Assessment: Do you want to hurt yourself or someone else? Patient reports no ss desire to harm self or others. Initial Sepsis Screen: Does the patient meet any 2 criteria? No. Patient's initial sepsis screen is negative. Does the patient have a suspected source of infection? No. Patient's initial sepsis screen is negative. Historical: - Allergies: 16:04 Demerol; sv 16:04 dorvon; sv 16:04 Tamiflu; sv - PMHx: 16:04 COPD; Hypertension; sv - PSHx: 16:04 Heart stents; sv - Immunization history:: Adult Immunizations up to date. - Ebola Screening: : No symptoms or risks identified at this time. - Social history:: Smoking status: unknown. Screenin:36 Abuse screen: Denies threats or abuse. Denies injuries from another. Nutritional ss screening: No deficits noted. Tuberculosis screening: Never had TB. Fall Risk None identified. Assessment: 16:20 General: Appears in no apparent distress. comfortable, Behavior is calm, cooperative. ss Pain: Denies pain. Neuro: Level of Consciousness is awake, alert, obeys commands. Cardiovascular: Capillary refill < 3 seconds is brisk in bilateral fingers. Respiratory: Airway is patent Respiratory effort is even, unlabored, Respiratory pattern is regular, symmetrical. Respiratory: Breath sounds are clear bilaterally. Denies cough, shortness of breath. GI: No signs and/or symptoms were reported involving the gastrointestinal system. EENT: Nares are clear Oral mucosa is moist. Derm: Skin is healthy with good turgor, Skin is pink, warm \T\ dry. Musculoskeletal: Circulation, motion, and sensation intact. Range of motion: intact in all extremities, Swelling absent. 16:36 Reassessment: Patient appears in no apparent distress at this time. Patient and/or ss family updated on plan of care and expected duration. Pain level reassessed. Patient is alert, oriented x 3, equal unlabored respirations, skin warm/dry/pink. Vital Signs: 16:03 BP 154 / 79; Pulse 96; Resp 18; Temp 97.6; Pulse Ox 96% ; sv ED Course: 15:53 Patient arrived in ED. sb2 16:03 Triage completed. sv 16:04 Arm band placed on left wrist. sv 16:06 Loyda Aragon FNP-C is [facility]. kb 16:06 Ata Patterson MD is Attending Physician. kb 16:24 Aissatou Caba, RN is Primary Nurse. ss 16:36 Patient has correct armband on for positive identification. Bed in low position. Call ss light in reach. 16:36 No provider procedures requiring assistance completed. Patient did not have IV access ss during this emergency room visit. Administered Medications: 16:31 Drug: predniSONE 40 mg Route: PO; ss 16:36 Follow up: Response: No adverse reaction; Medication administered at discharge. ss 16:32 Drug: Pepcid 20 mg Route: PO; ss 16:36 Follow up: Response: No adverse reaction; Medication administered at discharge. ss Outcome: 16:25 Discharge ordered by MD. kb 16:36 Discharged to home ambulatory, with family. ss 16:36 Condition: good 16:36 Discharge instructions given to patient, family, Instructed on discharge instructions, follow up and referral plans. medication usage, Demonstrated understanding of instructions, follow-up care, medications. 16:38 Patient left the ED. ss Signatures: Loyda Aragon FNP-C FNP-Ckb Verde, Stephanie, RN RN Aissatou Caba, DEBRA RN Angie Lorenzo sb2 Corrections: (The following items were deleted from the chart) 16:04 16:03 Temp 97.6F; sv sv
--- NOTE | 2018-03-29 16:26 | EDPHYS ---
Physician Documentation [facility] Name: Germania Bañuelos Age: 68 yrs Sex: Female : 1950 Arrival Date: 03/29/2018 Time: 15:53 Bed 12 Private MD: ED Physician Ata Patterson HPI: 03/29 16:55 This 68 yrs old Female presents to ER via Ambulatory with complaints of kb Insect Bite. 16:55 The patient presents with itching, rash, of the left arm and right arm. Onset: The kb symptoms/episode began/occurred 5 day(s) ago. Associated signs and symptoms: Pertinent positives: rash, itching. Possible causes: unknown insect. Severity of symptoms: At their worst the symptoms were moderate in the emergency department the symptoms are unchanged. The patient has not experienced similar symptoms in the past. The patient has not recently seen a physician. Historical: - Allergies: 16:04 Demerol; sv 16:04 dorvon; sv 16:04 Tamiflu; sv - PMHx: 16:04 COPD; Hypertension; sv - PSHx: 16:04 Heart stents; sv - Immunization history:: Adult Immunizations up to date. - Ebola Screening: : No symptoms or risks identified at this time. - Social history:: Smoking status: unknown. ROS: 16:49 Constitutional: Negative for fever, chills, and weight loss, Cardiovascular: Negative kb for chest pain, palpitations, and edema, Respiratory: Negative for shortness of breath, cough, wheezing, and pleuritic chest pain, Abdomen/GI: Negative for abdominal pain, nausea, vomiting, diarrhea, and constipation, Back: Negative for injury and pain, : Negative for injury, bleeding, discharge, and swelling, MS/Extremity: Negative for injury and deformity, Neuro: Negative for headache, weakness, numbness, tingling, and seizure. 16:49 Skin: Positive for rash, of the right arm and left arm. Exam: 16:49 Constitutional: This is a well developed, well nourished patient who is awake, alert, kb and in no acute distress. Head/Face: Normocephalic, atraumatic. Chest/axilla: Normal chest wall appearance and motion. Nontender with no deformity. No lesions are appreciated. Cardiovascular: Regular rate and rhythm with a normal S1 and S2. No gallops, murmurs, or rubs. Normal PMI, no JVD. No pulse deficits. Respiratory: Lungs have equal breath sounds bilaterally, clear to auscultation and percussion. No rales, rhonchi or wheezes noted. No increased work of breathing, no retractions or nasal flaring. Abdomen/GI: Soft, non-tender, with normal bowel sounds. No distension or tympany. No guarding or rebound. No evidence of tenderness throughout. MS/ Extremity: Pulses equal, no cyanosis. Neurovascular intact. Full, normal range of motion. Neuro: Awake and alert, GCS 15, oriented to person, place, time, and situation. Cranial nerves II-XII grossly intact. Motor strength 5/5 in all extremities. Sensory grossly intact. Cerebellar exam normal. Normal gait. 16:49 Skin: rash a mild rash is noted, rash can be described as erythematous, urticarial, on the left arm and right arm. Vital Signs: 16:03 BP 154 / 79; Pulse 96; Resp 18; Temp 97.6; Pulse Ox 96% ; sv MDM: 16:06 Patient medically screened. kb 16:55 Data reviewed: vital signs, nurses notes. Data interpreted: Pulse oximetry: on room air kb is 96 %. Interpretation: normal. Counseling: I had a detailed discussion with the patient and/or guardian regarding: the historical points, exam findings, and any diagnostic results supporting the discharge/admit diagnosis, the need for outpatient follow up, a family practitioner, to return to the emergency department if symptoms worsen or persist or if there are any questions or concerns that arise at home. Administered Medications: 16:31 Drug: predniSONE 40 mg Route: PO; 16:36 Follow up: Response: No adverse reaction; Medication administered at discharge. 16:32 Drug: Pepcid 20 mg Route: PO; 16:36 Follow up: Response: No adverse reaction; Medication administered at discharge. Disposition: 18:47 Co-signature as Attending Physician, Ata Patterson MD. ma2 Disposition: 03/29/18 16:25 Discharged to Home. Impression: Bitten or stung by nonvenomous insect and other nonvenomous arthropods, Allergic contact dermatitis. - Condition is Stable. - Discharge Instructions: Insect Bite, Adet-wz-Stgw, Contact Dermatitis, Hbdv-it-Izmc. - Prescriptions for Pepcid 20 mg Oral Tablet - take 1 tablet by ORAL route every 12 hours for 5 days; 10 tablet. Prednisone 20 mg Oral Tablet - take 1 tablet by ORAL route once daily for 5 days; 5 tablet. - Medication Reconciliation Form, Thank You Letter, Antibiotic Education, Prescription Opioid Use form. - Follow up: Emergency Department; When: As needed; Reason: Worsening of condition. Follow up: Private Physician; When: 2 - 3 days; Reason: Recheck today's complaints, Continuance of care, Re-evaluation by your physician. Signatures: Loyda Aragon, Sheree Brown RN RN sv Aissatou Caba RN RN ss Ata Patterson MD MD ma2 Corrections: (The following items were deleted from the chart) 16:38 16:25 03/29/2018 16:25 Discharged to Home. Impression: Bitten or stung by nonvenomous ss insect and other nonvenomous arthropods; Allergic contact dermatitis. Condition is Stable. Forms are Medication Reconciliation Form, Thank You Letter, Antibiotic Education, Prescription Opioid Use. Follow up: Emergency Department; When: As needed; Reason: Worsening of condition. Follow up: Private Physician; When: 2 - 3 days; Reason: Recheck today's complaints, Continuance of care, Re-evaluation by your physician. kb 16:55 16:49 Skin: rash a mild rash is noted, rash can be described as erythematous, on the kb left arm and right arm, kb
[2018-03-29] MEDS ORDERED: FAMOTIDINE 20 MG TAB ONE (16:31)
[2018-03-29] MEDS ORDERED: predniSONE 20 MG TAB ONE (16:32)
[2018-03-29 16:51] VITALS: BP 154/79; TEMP 97.6; O2SAT 96
== END 2018-03-29 16:38 | disposition home or self-care (01) ==
LOC: ER 15:48
DX: L23.9 Allergic contact dermatitis, unspecified cause (principal); W57.XXXA Bitten or stung by nonvenomous insect and other nonvenomous arthropods, initial encounter; I10 Essential (primary) hypertension; Z95.818 Presence of other cardiac implants and grafts; Z88.5 Allergy status to narcotic agent; Z88.8 Allergy status to other drugs, medicaments and biological substances
CPT/HCPCS: 99283; J7512

== ENCOUNTER 2018-04-25 17:30 | Emergency (ER) | payer OTHER ==
--- OUTSIDE RECORDS SUMMARY | 2018-04-25 17:33 | XMS REPORT ---
:1950 [facility] [address] [place] [address] Care Team Providers Name Role Phone JORGE [...] Lymph Abs (test code=ALYMPH) 3.4 K/cumm 0.5-4.6 [place] Abs (test code=AMONO) 0.7 K/cumm 0.0-1.2 Eos Abs (test code=AEOS) 0.10 K/cumm 0.00-0.74 Baso Abs (test code=ABASO) 0.1 K/cumm 0.00-0.21 Lipid [id number] 23:22:00 Test Item Value Reference Range Comments Cholesterol (test 136 mg/dL 0-200 code=CHOL) Triglycerides (test 100 mg/dL 9-200 code=TRIG) HDL (test code=HDL) 53 mg/dL 50-60 Chol/HDL (test 2.6 Ratio 0.0-4.4 code=CHOLPHDL) LDL, Calculated (test 63 mg/dL 0-130 (NOTE)RISK OF HEART code=LDLC) DISEASEPublished by [place] Heart AssociationAnalyte Optimal Boderline Increased RiskCHOL <200 200-239 >240TRIG <150 150-199 >200HDL Male: >60 <40HDL Female: >60 <50LDL <100 130-159 >160LDL NEAR OPTIMAL IS 100-129 VLDL (test code=VLDL) 20 mg/dL 5-40 LDL/HDL (test code=LDLPHDL) 1 Comprehensive Metabolic [id number] 23:22:00 Test Item Value Reference Range Comments [...] race is not provided, and the patient isAfrican-Monegasque, multiply by 1.212. If sex is not [...]
--- NOTE | 2018-04-25 18:44 | ER ---
Nurse's Notes [facility] Name: Germania Bañuelos Age: 68 yrs Sex: Female : 1950 Arrival Date: 04/25/2018 Time: 17:32 Bed 26 Private MD: Yovanny Ace Diagnosis: Cellulitis of face Presentation: 04/25 17:55 Presenting complaint: Patient states: I GOT BIT THIS MORNING ON MY JAW AND NOW IT'S bp SWOLLEN. Transition of care: patient was not received from another setting of care. Onset of symptoms is unknown. Risk Assessment: Do you want to hurt yourself or someone else? Patient reports no desire to harm self or others. Initial Sepsis Screen: Does the patient meet any 2 criteria? No. Patient's initial sepsis screen is negative. Does the patient have a suspected source of infection? No. Patient's initial sepsis screen is negative. Care prior to arrival: None. 17:55 Method Of Arrival: Ambulatory bp 17:55 Acuity: MIGUEL 4 bp Triage Assessment: 17:56 Bite description: bite sustained to neck by a mosquito, animal information: bp vaccination(s) is not applicable. Respiratory: Airway is patent Respiratory effort is even, unlabored, Respiratory pattern is regular, symmetrical. Historical: - Allergies: 17:56 Demerol; bp 17:56 dorvon; bp 17:56 Tamiflu; bp - Home Meds: 17:56 gabapentin 300 mg Oral cap 1 cap twice a day [Active]; metoprolol tartrate 25 mg Oral bp tab 1 tab 2 times per day [Active]; rosuvastatin 40 mg Oral tab 1 tab once daily [Active]; tramadol 50 mg Oral tab 1 tab every 6 hours [Active]; - PMHx: 17:56 COPD; Hypertension; bp - Immunization history:: Adult Immunizations up to date. - Social history:: Smoking status: Patient uses tobacco products, smokes one pack cigarettes per day. - Ebola Screening: : Patient negative for fever greater than or equal to 101.5 degrees Fahrenheit, and additional compatible Ebola Virus Disease symptoms Patient denies exposure to infectious person Patient denies travel to an Ebola-affected area in the 21 days before illness onset No symptoms or risks identified at this time. Screenin:27 Abuse screen: Denies threats or abuse. Nutritional screening: No deficits noted. tw2 Tuberculosis screening: No symptoms or risk factors identified. Fall Risk None identified. Assessment: 18:26 General: Appears in no apparent distress. Behavior is calm, cooperative, appropriate tw2 for age. Pain: Denies pain. Neuro: Level of Consciousness is awake, alert, obeys commands, Oriented to person, place, time, situation. Cardiovascular: Denies chest pain, shortness of breath, Patient's skin is warm and dry. Respiratory: Airway is patent Respiratory effort is even, unlabored, Respiratory pattern is regular, symmetrical. GI: No signs and/or symptoms were reported involving the gastrointestinal system. : No signs and/or symptoms were reported regarding the genitourinary system. EENT: No signs and/or symptoms were reported regarding the EENT system. Derm: Skin is intact, Skin is pink, warm \T\ dry. redness noted to chin. Vital Signs: 17:56 BP 124 / 67; Pulse 87; Resp 16; Temp 97.6; Pulse Ox 97% ; Weight 54.43 kg; Height 5 ft. bp (152.40 cm); 17:56 Body Mass Index 23.44 (54.43 kg, 152.40 cm) bp ED Course: 17:32 Patient arrived in ED. as 17:32 Yovanny Ace DO is Private Physician. as 17:56 Triage completed. bp 17:56 Arm band placed on. bp 18:19 Marianela Maher, DEBRA is Primary Nurse. tw2 18:19 Bed in low position. Call light in reach. Pulse ox on. NIBP on. tw2 18:22 [facility]C [facility] snw 18:22 Sridhar Wilcox MD is Attending Physician. snw 18:41 No provider procedures requiring assistance completed. Patient did not have IV access tw2 during this emergency room visit. 18:42 Yovanny Ace DO is Referral Physician. snw Administered Medications: 18:50 Drug: Pepcid 20 mg Route: PO; tl3 18:51 Follow up: Response: Medication administered at discharge. tl3 18:50 Drug: ZyrTEC - Cetirizine 10 mg Route: PO; tl3 18:51 Follow up: Response: Medication administered at discharge. tl3 18:51 Drug: Clindamycin 300 mg Route: PO; tl3 18:51 Follow up: Response: Medication administered at discharge. tl3 Outcome: 18:44 Discharge ordered by . lauro 18:52 Discharged to home ambulatory. tl3 18:52 Condition: good 18:52 Discharge instructions given to patient, Instructed on discharge instructions, follow up and referral plans. medication usage, Demonstrated understanding of instructions, follow-up care, medications, Prescriptions given X 3. 18:53 Patient left the ED. tl3 Signatures: Anisa Meza, SHOP WELDER-C SHOP WELDER-Connie Briggs Tara, RN RN tw2 Shahram Santos, RN RN bp Angelita Gatica, DEBRA RN tl3
--- NOTE | 2018-04-25 18:44 | EDPHYS ---
Physician Documentation [facility] Name: Germania Bañuelos Age: 68 yrs Sex: Female : 1950 Arrival Date: 04/25/2018 Time: 17:32 Bed 26 Private MD: Yovanny Ace ED Physician Sridhar Wilcox HPI: 04/25 19:30 This 68 yrs old Female presents to ER via Ambulatory with complaints of snw Insect Bite, Chin Swelling. 19:30 The patient presents with cellulitis of the submental area, the patient presents with a snw swollen area of the submental area. Description: erythematous, raised, warm. Onset: The symptoms/episode began/occurred suddenly, today, s/p insect bite under chin. Possible cause(s): insect sting. Associated signs and symptoms: The patient has no apparent associated signs or symptoms. Severity of symptoms: At their worst the symptoms were moderate, in the emergency department the symptoms are unchanged. The patient has not experienced similar symptoms in the past. It is unknown whether or not the patient has recently seen a physician. 19:31 no airway compromise, no dental pain, no difficulty swallowing. snw Historical: - Allergies: 17:56 Demerol; bp 17:56 dorvon; bp 17:56 Tamiflu; bp - Home Meds: 17:56 gabapentin 300 mg Oral cap 1 cap twice a day [Active]; metoprolol tartrate 25 mg Oral bp tab 1 tab 2 times per day [Active]; rosuvastatin 40 mg Oral tab 1 tab once daily [Active]; tramadol 50 mg Oral tab 1 tab every 6 hours [Active]; - PMHx: 17:56 COPD; Hypertension; bp - Immunization history:: Adult Immunizations up to date. - Social history:: Smoking status: Patient uses tobacco products, smokes one pack cigarettes per day. - Ebola Screening: : Patient negative for fever greater than or equal to 101.5 degrees Fahrenheit, and additional compatible Ebola Virus Disease symptoms Patient denies exposure to infectious person Patient denies travel to an Ebola-affected area in the 21 days before illness onset No symptoms or risks identified at this time. ROS: 19:29 Constitutional: Negative for fever, chills, and weight loss, Eyes: Negative for injury, snw pain, redness, and discharge, ENT: Negative for injury, pain, and discharge, Cardiovascular: Negative for chest pain, palpitations, and edema, Respiratory: Negative for shortness of breath, cough, wheezing, and pleuritic chest pain, Abdomen/GI: Negative for abdominal pain, nausea, vomiting, diarrhea, and constipation, Back: Negative for injury and pain, : Negative for injury, bleeding, discharge, and swelling, MS/Extremity: Negative for injury and deformity, Skin: Negative for injury, rash, and discoloration, Neuro: Negative for headache, weakness, numbness, tingling, and seizure. 19:29 Neck: Positive for swelling, tenderness, insect bite (mosquito) just under chin this am. Exam: 19:28 Constitutional: This is a well developed, well nourished patient who is awake, alert, snw and in no acute distress. Head/Face: Normocephalic, atraumatic. Eyes: Pupils equal round and reactive to light, extra-ocular motions intact. Lids and lashes normal. Conjunctiva and sclera are non-icteric and not injected. Cornea within normal limits. Periorbital areas with no swelling, redness, or edema. ENT: Nares patent. No nasal discharge, no septal abnormalities noted. Tympanic membranes are normal and external auditory canals are clear. Oropharynx with no redness, swelling, or masses, exudates, or evidence of obstruction, uvula midline. Mucous membranes moist. Chest/axilla: Normal chest wall appearance and motion. Nontender with no deformity. No lesions are appreciated. Cardiovascular: Regular rate and rhythm with a normal S1 and S2. No gallops, murmurs, or rubs. Normal PMI, no JVD. No pulse deficits. Respiratory: Lungs have equal breath sounds bilaterally, clear to auscultation and percussion. No rales, rhonchi or wheezes noted. No increased work of breathing, no retractions or nasal flaring. Abdomen/GI: Soft, non-tender, with normal bowel sounds. No distension or tympany. No guarding or rebound. No evidence of tenderness throughout. Back: No spinal tenderness. No costovertebral tenderness. Full range of motion. Skin: Warm, dry with normal turgor. Normal color with no rashes, no lesions, and no evidence of cellulitis. MS/ Extremity: Pulses equal, no cyanosis. Neurovascular intact. Full, normal range of motion. Neuro: Awake and alert, GCS 15, oriented to person, place, time, and situation. Cranial nerves II-XII grossly intact. Motor strength 5/5 in all extremities. Sensory grossly intact. Cerebellar exam normal. Normal gait. 19:28 Neck: External neck: erythema, that is moderate, of the submental area and thyroid cartilage, swelling, ROM/movement: is normal, is supple. Vital Signs: 17:56 BP 124 / 67; Pulse 87; Resp 16; Temp 97.6; Pulse Ox 97% ; Weight 54.43 kg; Height 5 ft. bp (152.40 cm); 17:56 Body Mass Index 23.44 (54.43 kg, 152.40 cm) bp MDM: 18:27 Patient medically screened. [facility] 19:29 Data reviewed: vital signs, nurses notes. Data interpreted: Pulse oximetry: on room air snw is 97 %. Interpretation: normal. Counseling: I had a detailed discussion with the patient and/or guardian regarding: the historical points, exam findings, and any diagnostic results supporting the discharge/admit diagnosis, the need for outpatient follow up, to return to the emergency department if symptoms worsen or persist or if there are any questions or concerns that arise at home. Special discussion: I discussed in detail with the patient the higher chance of wound infection based on his presenting history. Based on the history and exam findings, there is no indication for further emergent testing or inpatient evaluation. I discussed with the patient/guardian the need to see the primary care provider for further evaluation of the symptoms. Administered Medications: 18:50 Drug: Pepcid 20 mg Route: PO; tl3 18:51 Follow up: Response: Medication administered at discharge. tl3 18:50 Drug: ZyrTEC - Cetirizine 10 mg Route: PO; tl3 18:51 Follow up: Response: Medication administered at discharge. tl3 18:51 Drug: Clindamycin 300 mg Route: PO; tl3 18:51 Follow up: Response: Medication administered at discharge. tl3 Disposition: 04/26 07:05 Co-signature as Attending Physician, Sridhar Wilcox MD I agree with the assessment and [facility] plan of care. Disposition: 04/25/18 18:44 Discharged to Home. Impression: Cellulitis of face. - Condition is Stable. - Discharge Instructions: Lymphangitis, Pediatric, Cellulitis, Pediatric. - Prescriptions for Clindamycin HCl 300 mg Oral Capsule - take 1 capsule by ORAL route every 6 hours for 10 days; 40 capsule. Zyrtec 10 mg Oral Tablet - take 1 tablet by ORAL route once daily As needed; 20 tablet. Pepcid 20 mg Oral Tablet - take 1 tablet by ORAL route once daily; 20 tablet. - Medication Reconciliation Form, Thank You Letter, Antibiotic Education, Prescription Opioid Use form. - Follow up: Yovanny Ace DO; When: 2 - 3 days; Reason: Recheck today's complaints, Continuance of care, Re-evaluation by your physician. Follow up: Emergency Department; When: As needed; Reason: Worsening of condition. Signatures: Sridhar Wilcox MD MD cha Therrien, Shelly, LIFE SKILLS EDUCATOR-C LIFE SKILLS EDUCATOR-Csnw Shahram Santos, RN RN bp Angelita Gatica, DEBRA RN tl3 Corrections: (The following items were deleted from the chart) 04/25 18:53 18:44 04/25/2018 18:44 Discharged to Home. Impression: Cellulitis of face. Condition is tl3 Stable. Forms are Medication Reconciliation Form, Thank You Letter, Antibiotic Education, Prescription Opioid Use. Follow up: Yovanny Ace; When: 2 - 3 days; Reason: Recheck today's complaints, Continuance of care, Re-evaluation by your physician. Follow up: Emergency Department; When: As needed; Reason: Worsening of condition. snw
[2018-04-25] MEDS ORDERED: CLINDAMYCIN HCL 150 MG CAP ONE (18:53)
[2018-04-25] MEDS ORDERED: CETIRIZINE HCL 5 MG TABLET ONE (18:53)
[2018-04-25] MEDS ORDERED: FAMOTIDINE 20 MG TAB ONE (18:53)
[2018-04-25 19:06] VITALS: BP 124/67; TEMP 97.6; O2SAT 97
== END 2018-04-25 18:53 | disposition home or self-care (01) ==
LOC: ER 17:30
DX: L03.211 Cellulitis of face (principal); I10 Essential (primary) hypertension; J44.9 Chronic obstructive pulmonary disease, unspecified; F17.210 Nicotine dependence, cigarettes, uncomplicated; Z88.5 Allergy status to narcotic agent; Z88.8 Allergy status to other drugs, medicaments and biological substances
CPT/HCPCS: 99283

== ENCOUNTER 2018-07-29 13:35 | Emergency (ER) | payer OTHER ==
--- OUTSIDE RECORDS SUMMARY | 2018-07-29 13:36 | XMS REPORT ---
:1950 [facility] Address [address] [place] [address] Care Team Providers Name Role Phone JORGE [...] Lymph Abs (test code=ALYMPH) 3.4 K/cumm 0.5-4.6 [place] Abs (test code=AMONO) 0.7 K/cumm 0.0-1.2 Eos Abs (test code=AEOS) 0.10 K/cumm 0.00-0.74 Baso Abs (test code=ABASO) 0.1 K/cumm 0.00-0.21 Lipid [id number] 23:22:00 Test Item Value Reference Range Comments Cholesterol (test 136 mg/dL 0-200 code=CHOL) Triglycerides (test 100 mg/dL 9-200 code=TRIG) HDL (test code=HDL) 53 mg/dL 50-60 Chol/HDL (test 2.6 Ratio 0.0-4.4 code=CHOLPHDL) LDL, Calculated (test 63 mg/dL 0-130 (NOTE)RISK OF HEART code=LDLC) DISEASEPublished by [place] Heart AssociationAnalyte Optimal Boderline Increased RiskCHOL <200 200-239 >240TRIG <150 150-199 >200HDL Male: >60 <40HDL Female: >60 <50LDL <100 130-159 >160LDL NEAR OPTIMAL IS 100-129 VLDL (test code=VLDL) 20 mg/dL 5-40 LDL/HDL (test code=LDLPHDL) 1 Comprehensive Metabolic [id number] 23:22:00 Test Item Value Reference Range Comments [...] race is not provided, and the patient isAfrican-Moroccan, multiply by 1.212. If sex is not [...]
[2018-07-29] MEDS ORDERED: ONDANSETRON 4 MG/2 ML VIAL ONE (14:09)
[2018-07-29] MEDS ORDERED: NA CHLORIDE 0.9% 1,000 ML ONE (14:09)
[2018-07-29 14:28] LABS: Absolute Lymphocytes (CBC) 1.2 K/uL (0.7-4.9); Absolute Monocytes 0.4 K/uL (0.1-1.3); Absolute Neutrophil 12.3 K/uL (1.8-8.0); Basophils % 0.2 % (0-1.3); Eosinophils % 0.1 % (0-4.4); Hematocrit 43.6 % (36.0-45.0); Lymphocytes % 8.7 % (15.3-44.8); MPV 12.1 fL (7.6-11.3); Monocytes % 2.6 % (3.3-12.3); RBC Red Blood Cell Count 4.76 M/uL (3.86-4.86)
[2018-07-29 14:39] LABS: Albumin 3.7 g/dL (3.4-5.0); Bilirubin Direct 0.2 mg/dL (0-0.2); Bilirubin Total 0.6 mg/dL (0.2-1.0); Potassium 3.7 mmol/L (3.5-5.1); Protein, Total 7.3 g/dL (6.4-8.2)
[2018-07-29] MEDS ORDERED: ACETAMINOPHEN 325 MG TABLET ONE (14:44)
[2018-07-29 15:02] LABS: Blood Morphology Comment NOT SEEN (NOT SEEN); Platelet Estimate ADEQ; Urine White Blood Cell Casts OK
--- NOTE | 2018-07-29 16:42 | RAD REPORT ---
EXAM DESCRIPTION: CT - Abdomen Pelvis W Contrast - 07/29/2018 4:15 pm CLINICAL HISTORY: Abdominal pain, vomiting COMPARISON: None. TECHNIQUE: Biphasic, helical CT imaging of the abdomen and pelvis was performed following 100 ml non -ionic IV contrast. No oral contrast given. All CT scans are performed using dose optimization technique as appropriate and may include automated exposure control or mA/KV adjustment according to patient size. FINDINGS: No focal mass or consolidation. Interstitial markings are prominent probably chronic inter stitial lung disease. Interstitial edema or infiltrate lesser in likelihood. No pericardial effusion. The liver, spleen, and pancreas show no suspicious findings. Gallbladder and biliary tree are also wi thout suspicious finding. Symmetric renal function is seen with no hydronephrosis or suspicious renal mass. No pyelonephritis o r acute parenchymal process. No bladder abnormalities. No adrenal abnormalities. A few small incident al renal cysts are present. No dilated bowel loops or bowel wall thickening. Patient has minimal sigmoid diverticulosis. No appen dicitis or other acute GI process. No free air, free fluid or inflammatory stranding. No hernia, mas s or bulky lymphadenopathy. Uterus and ovaries show no suspicious findings for age. Disc and bony degenerative changes are present. No acute or pathologic bone process. Scoliotic curvat ure present. IMPRESSION: Contrast enhanced CT abdomen and pelvis showing no significant or suspicious finding. N onacute findings detailed in the body of the report.
--- NOTE | 2018-07-29 17:01 | ER ---
Nurse's Notes [facility] Name: Germania Bañuelos Age: 68 yrs Sex: Female : 1950 Arrival Date: 07/29/2018 Time: 13:35 Bed 27 Private MD: Diagnosis: Vomiting Presentation: 07/29 13:36 Presenting complaint: EMS states: pt hx of COPD, went to about a week ago, was told tw2 she had sinus infection, started abx, pt reports a cough x1 month, started vomiting last night and it hasnt stopped, says she slept on the bathroom floor because she couldn't stopped vomiting, she has not vomited for us, vs stable, BGL 127, HX: COPD, HTN, cardiac stents, takes asa, crestor, metoprolol. Transition of care: patient was not received from another setting of care. Onset of symptoms was July 29, 2018. Risk Assessment: Do you want to hurt yourself or someone else? Patient reports no desire to harm self or others. Initial Sepsis Screen: Does the patient meet any 2 criteria? No. Patient's initial sepsis screen is negative. Does the patient have a suspected source of infection? No. Patient's initial sepsis screen is negative. Care prior to arrival: None. 13:36 Method Of Arrival: EMS: [facility] tw2 13:36 Acuity: MIGUEL 3 tw2 Historical: - Allergies: 13:40 Demerol; tw2 13:40 dorvon; tw2 13:40 Tamiflu; tw2 13:40 Ibuprofen; tw2 - Home Meds: 13:40 metoprolol tartrate 25 mg Oral tab 1 tab 2 times per day [Active]; aspirin 81 mg Oral tw2 chew 1 tab once daily [Active]; Crestor oral oral [Active]; - PMHx: 13:40 Hypertension; COPD; tw2 - Immunization history:: Adult Immunizations. - Social history:: Smoking status: Patient uses tobacco products, smokes one-half pack cigarettes per day. - Ebola Screening: : Patient denies travel to an Ebola-affected area in the 21 days before illness onset. Screenin:42 Abuse screen: Denies threats or abuse. Nutritional screening: No deficits noted. tw2 Tuberculosis screening: No symptoms or risk factors identified. Fall Risk None identified. Assessment: 13:40 General: Appears uncomfortable, slender, Behavior is cooperative, appropriate for age. tw2 Pain: Denies pain. Neuro: Level of Consciousness is awake, alert, obeys commands, Oriented to person, place, time, situation. Cardiovascular: Heart tones S1 S2 Capillary refill < 3 seconds Patient's skin is warm and dry. Respiratory: Reports cough that is non-productive, Airway is patent Respiratory effort is even, unlabored, Respiratory pattern is regular, symmetrical, Breath sounds are clear bilaterally. GI: Abdomen is flat, Bowel sounds present X 4 quads. Reports nausea, vomiting. : No signs and/or symptoms were reported regarding the genitourinary system. EENT: No signs and/or symptoms were reported regarding the EENT system. Derm: No signs and/or symptoms reported regarding the dermatologic system. Musculoskeletal: Range of motion: intact in all extremities. 13:51 Reassessment: Dr. Batista at bedside at this time. tw2 14:25 Reassessment: Patient appears in no apparent distress at this time. Patient and/or tw2 family updated on plan of care and expected duration. Pain level reassessed. Patient is alert, oriented x 3, equal unlabored respirations, skin warm/dry/pink. 15:55 Reassessment: Patient appears in no apparent distress at this time. Patient and/or tw2 family updated on plan of care and expected duration. Pain level reassessed. Patient is alert, oriented x 3, equal unlabored respirations, skin warm/dry/pink. Patient states feeling better. 16:41 Reassessment: Patient appears in no apparent distress at this time. Patient and/or tw2 family updated on plan of care and expected duration. Pain level reassessed. Patient is alert, oriented x 3, equal unlabored respirations, skin warm/dry/pink. Patient states feeling better. 17:05 Reassessment: Patient appears in no apparent distress at this time. Patient and/or tw2 family updated on plan of care and expected duration. Pain level reassessed. Patient is alert, oriented x 3, equal unlabored respirations, skin warm/dry/pink. Patient states feeling better. Vital Signs: 13:37 BP 120 / 88; Pulse 96; Resp 19; Temp 97.7(O); Pulse Ox 96% on R/A; Pain 0/10; tw2 14:25 BP 153 / 71; Pulse 91; Resp 17; Pulse Ox 95% on R/A; tw2 15:55 BP 143 / 62; Pulse 88; Resp 17; Pulse Ox 95% on R/A; tw2 16:42 BP 155 / 82; Pulse 92; Resp 17; Pulse Ox 95% on R/A; tw2 ED Course: 13:35 Patient arrived in ED. tw2 13:35 Bed in low position. Call light in reach. Pulse ox on. NIBP on. Warm blanket given. tw2 13:37 Triage completed. tw2 13:39 Gino Batista MD is Attending Physician. gs 13:39 Arm band placed on. tw2 13:51 Marianela Maher RN is Primary Nurse. tw2 14:00 Inserted saline lock: 22 gauge in right forearm, using aseptic technique. Blood tw2 collected. 16:15 CT completed. Patient tolerated procedure well. Patient moved back from CT. kw1 16:18 CT Abd/Pelvis - W/Contrast In Process Unspecified. EDMS 17:05 No provider procedures requiring assistance completed. IV discontinued, intact, tw2 bleeding controlled, No redness/swelling at site. Pressure dressing applied. Administered Medications: 14:02 Drug: Zofran 4 mg Route: IVP; Site: right forearm; tw2 14:36 Follow up: Response: No adverse reaction; Nausea is decreased tw2 14:05 Drug: NS 0.9% 1000 ml Route: IV; Rate: 1 bolus; Site: right forearm; tw2 15:56 Follow up: Response: No adverse reaction; IV Status: Completed infusion; IV Intake: tw2 1000ml 14:36 Drug: Tylenol 650 mg Route: PO; tw2 15:55 Follow up: Response: No adverse reaction tw2 Intake: 15:56 IV: 1000ml; Total: 1000ml. tw2 Outcome: 17:00 Discharge ordered by . 17:05 Discharged to home ambulatory, with family. tw2 17:05 Condition: stable 17:05 Discharge instructions given to patient, family, Instructed on discharge instructions, follow up and referral plans. medication usage, Demonstrated understanding of instructions, follow-up care, medications, Prescriptions given X 1. 17:06 Patient left the ED. tw2 Signatures: Dispatcher [employer] EDMD Marianela Maher RN RN tw2 Gino Batista MD MD gs Maria Del Rosario Martino kw1
--- NOTE | 2018-07-29 17:01 | EDPHYS ---
Physician Documentation [facility] Name: Germania Bañuelos Age: 68 yrs Sex: Female : 1950 Arrival Date: 07/29/2018 Time: 13:35 Bed 27 Private MD: ED Physician Gino Batista HPI: 07/29 17:35 This 68 yrs old Female presents to ER via EMS with complaints of Vomiting, gs Cough. 17:35 The patient presents to the emergency department with nausea, vomiting. Onset: The gs symptoms/episode began/occurred 2 day(s) ago. Possible causes: antibiotics. The symptoms are aggravated by nothing. The symptoms are alleviated by nothing. Associated signs and symptoms: Pertinent negatives: diarrhea, fever. Severity of symptoms: At their worst the symptoms were moderate in the emergency department the symptoms have improved mildly. The patient has experienced similar episodes in the past, a few times. 17:35 The patient has been recently seen by a physician: the patient's primary care provider, gs with different complaint(s), was given a prescription for antibiotics. Historical: - Allergies: 13:40 Demerol; tw2 13:40 dorvon; tw2 13:40 Tamiflu; tw2 13:40 Ibuprofen; tw2 - Home Meds: 13:40 metoprolol tartrate 25 mg Oral tab 1 tab 2 times per day [Active]; aspirin 81 mg Oral tw2 chew 1 tab once daily [Active]; Crestor oral oral [Active]; - PMHx: 13:40 Hypertension; COPD; tw2 - Immunization history:: Adult Immunizations. - Social history:: Smoking status: Patient uses tobacco products, smokes one-half pack cigarettes per day. - Ebola Screening: : Patient denies travel to an Ebola-affected area in the 21 days before illness onset. ROS: 17:35 All other systems are negative. gs Exam: 17:35 Head/Face: Normocephalic, atraumatic. Eyes: Pupils equal round and reactive to light, gs extra-ocular motions intact. Lids and lashes normal. Conjunctiva and sclera are non-icteric and not injected. Cornea within normal limits. Periorbital areas with no swelling, redness, or edema. ENT: Nares patent. No nasal discharge, no septal abnormalities noted. Tympanic membranes are normal and external auditory canals are clear. Oropharynx with no redness, swelling, or masses, exudates, or evidence of obstruction, uvula midline. Mucous membranes moist. Neck: Trachea midline, no thyromegaly or masses palpated, and no cervical lymphadenopathy. Supple, full range of motion without nuchal rigidity, or vertebral point tenderness. No Meningismus. Chest/axilla: Normal chest wall appearance and motion. Nontender with no deformity. No lesions are appreciated. Cardiovascular: Regular rate and rhythm with a normal S1 and S2. No gallops, murmurs, or rubs. Normal PMI, no JVD. No pulse deficits. Respiratory: Lungs have equal breath sounds bilaterally, clear to auscultation and percussion. No rales, rhonchi or wheezes noted. No increased work of breathing, no retractions or nasal flaring. Back: No spinal tenderness. No costovertebral tenderness. Full range of motion. Skin: Warm, dry with normal turgor. Normal color with no rashes, no lesions, and no evidence of cellulitis. MS/ Extremity: Pulses equal, no cyanosis. Neurovascular intact. Full, normal range of motion. Neuro: Awake and alert, GCS 15, oriented to person, place, time, and situation. Cranial nerves II-XII grossly intact. Motor strength 5/5 in all extremities. Sensory grossly intact. Cerebellar exam normal. Normal gait. 17:35 Constitutional: The patient appears alert, awake. 17:35 Abdomen/GI: Palpation: moderate abdominal tenderness, in all quadrants, rebound tenderness, is not appreciated. Vital Signs: 13:37 BP 120 / 88; Pulse 96; Resp 19; Temp 97.7(O); Pulse Ox 96% on R/A; Pain 0/10; tw2 14:25 BP 153 / 71; Pulse 91; Resp 17; Pulse Ox 95% on R/A; tw2 15:55 BP 143 / 62; Pulse 88; Resp 17; Pulse Ox 95% on R/A; tw2 16:42 BP 155 / 82; Pulse 92; Resp 17; Pulse Ox 95% on R/A; tw2 MDM: 13:54 Patient medically screened. gs 17:35 Differential diagnosis: Nonspecific abd pain, pancreatitis, gastroenteritis, sbo. Data gs reviewed: vital signs, nurses notes. Counseling: I had a detailed discussion with the patient and/or guardian regarding: the historical points, exam findings, and any diagnostic results supporting the discharge/admit diagnosis, lab results, radiology results, the need for outpatient follow up. Response to treatment: the patient's symptoms have markedly improved after treatment, patient is well hydrated. and as a result, I will discharge patient. 07/29 13:54 Order name: Basic Metabolic Panel 07/29 13:54 Order name: CBC with Diff 07/29 13:54 Order name: Hepatic Function; Complete Time: 15:48 07/29 13:54 Order name: Lipase; Complete Time: 15:48 07/29 13:55 Order name: Basic Metabolic Panel; Complete Time: 15:48 EDIA 07/29 13:55 Order name: CBC with Automated Diff; Complete Time: 15:48 [facility] 07/29 13:54 Order name: IV Saline Lock; Complete Time: 14:24 07/29 13:54 Order name: Labs collected and sent; Complete Time: 14:24 07/29 14:41 Order name: CBC Smear Scan; Complete Time: 15:48 [facility] 07/29 15:49 Order name: CT Abd/Pelvis - W/Contrast; Complete Time: 16:53 Administered Medications: 14:02 Drug: Zofran 4 mg Route: IVP; Site: right forearm; tw2 14:36 Follow up: Response: No adverse reaction; Nausea is decreased tw2 14:05 Drug: NS 0.9% 1000 ml Route: IV; Rate: 1 bolus; Site: right forearm; tw2 15:56 Follow up: Response: No adverse reaction; IV Status: Completed infusion; IV Intake: tw2 1000ml 14:36 Drug: Tylenol 650 mg Route: PO; tw2 15:55 Follow up: Response: No adverse reaction tw2 Disposition: 07/29/18 17:00 Discharged to Home. Impression: Vomiting. - Condition is Stable. - Discharge Instructions: Nausea and Vomiting, Adult. - Prescriptions for Zofran 4 mg Oral Tablet - take 1 tablet by ORAL route every 12 hours As needed; 6 tablet. - Medication Reconciliation Form, Thank You Letter, Antibiotic Education, Prescription Opioid Use form. - Follow up: Private Physician; When: 2 - 3 days; Reason: Re-evaluation by your physician. Signatures: Dispatcher [employer] Marianela Lema RN RN tw2 Gino Batista MD MD Corrections: (The following items were deleted from the chart) 17:06 17:00 07/29/2018 17:00 Discharged to Home. Impression: Vomiting. Condition is Stable. tw2 Forms are Medication Reconciliation Form, Thank You Letter, Antibiotic Education, Prescription Opioid Use. Follow up: Private Physician; When: 2 - 3 days; Reason: Re-evaluation by your physician. 17:39 17:35 The patient has not recently seen a physician, [facility]
[2018-07-29 17:23] VITALS: TEMP 97.7
[2018-07-29 17:25] VITALS: O2SAT 95
[2018-07-29 17:28] VITALS: BP 155/82
== END 2018-07-29 17:06 | disposition home or self-care (01) ==
LOC: ER 13:35
DX: R11.10 Vomiting, unspecified (principal); I10 Essential (primary) hypertension; J44.9 Chronic obstructive pulmonary disease, unspecified; F17.210 Nicotine dependence, cigarettes, uncomplicated; Z88.5 Allergy status to narcotic agent; Z88.6 Allergy status to analgesic agent; Z88.8 Allergy status to other drugs, medicaments and biological substances
CPT/HCPCS: 36415; 74177; 80048; 80076; 83690; 85025; 96361; 96374; 99285; J2405; J7030; Q9967

== ENCOUNTER 2019-02-15 13:46 | Observation (INO) | payer OTHER ==
--- OUTSIDE RECORDS SUMMARY | 2019-02-15 13:47 | XMS REPORT ---
:1950 [facility] Address [address] [place] [address] Care Team Providers Name Role Phone JORGE [...] Lymph Abs (test code=ALYMPH) 3.4 K/cumm 0.5-4.6 Webb Abs (test code=AMONO) 0.7 K/cumm 0.0-1.2 Eos Abs (test code=AEOS) 0.10 K/cumm 0.00-0.74 Baso Abs (test code=ABASO) 0.1 K/cumm 0.00-0.21 Lipid [id number] 23:22:00 Test Item Value Reference Range Comments Cholesterol (test 136 mg/dL 0-200 code=CHOL) Triglycerides (test 100 mg/dL 9-200 code=TRIG) HDL (test code=HDL) 53 mg/dL 50-60 Chol/HDL (test 2.6 Ratio 0.0-4.4 code=CHOLPHDL) LDL, Calculated (test 63 mg/dL 0-130 (NOTE)RISK OF HEART code=LDLC) DISEASEPublished by [place]ones[place] Heart AssociationAnalyte Optimal Boderline Increased RiskCHOL <200 200-239 >240TRIG <150 150-199 >200HDL Male: >60 <40HDL Female: >60 <50LDL <100 130-159 >160LDL NEAR OPTIMAL IS 100-129 VLDL (test code=VLDL) 20 mg/dL 5-40 LDL/HDL (test code=LDLPHDL) 1 Comprehensive Metabolic [id number] 23:22:00 Test Item Value Reference Range Comments [...] race is not provided, and the patient isAfrican-Gabonese, multiply by 1.212. If sex is not [...]
[2019-02-15 16:32] LABS: Absolute Lymphocytes (CBC) 3.5 K/uL (0.7-4.9); Basophils % 1.1 % (0-1.3); Lymphocytes % 28.3 % (15.3-44.8); MPV 11.7 fL (7.6-11.3); Protime INR 0.96; RBC Red Blood Cell Count 4.24 M/uL (3.86-4.86)
[2019-02-15 16:41] LABS: ALT/SGPT 17 U/L (12-78); AST/SGOT 17 U/L (15-37); Albumin 3.9 g/dL (3.4-5.0); Alkaline Phosphatase 119 U/L (45-117); BUN Blood Urea Nitrogen 12 mg/dL (7-18); Bicarbonate 28 mmol/L (21-32); Bilirubin Direct 0.1 mg/dL (0-0.2); Bilirubin Total 0.7 mg/dL (0.2-1.0); Glucose Level 91 mg/dL (74-106); Magnesium 2.1 mg/dL (1.8-2.4); NT PRO-BNP 680 pg/mL (<125); Protein, Total 6.9 g/dL (6.4-8.2); Sodium Level 137 mmol/L (136-145); Troponin (Emerg Dept Use Only) < 0.02 ng/mL (0.0-0.045)
[2019-02-15 17:02] LABS: Urine Blood NEGATIVE (NEG); Urine Glucose NEGATIVE (NEG); Urine Protein NEGATIVE (NEG); Urine pH 5.5 (5.0-7.0)
--- NOTE | 2019-02-15 17:59 | RAD REPORT ---
EXAM DESCRIPTION: CT - Angio Aorta For Dissection - 02/15/2019 5:22 pm CLINICAL HISTORY: . Chest pain/abdominal pain COMPARISON: 2016 TECHNIQUE: Computed tomography angiography of the chest, abdomen pelvis were obtained. 100 cc Isovue 370 was administered intravenously. Coronal and sagittal reconstruction were performed. MIP 3D reconstruction was performed All CT scans are performed using dose optimization technique as appropriate and may include automated exposure control or mA/KV adjustment according to patient size. FINDINGS: An aortic dissection is not seen. An aortic aneurysm is not displayed. Mild to moderate a therosclerosis The celiac, and SMA are patent. DORIS is small A lung consolidation is not present. A pericardial effusion is not seen. A pleural effusion is not n oted. The liver,spleen, pancreas adrenals kidneys demonstrate no significant abnormality. The appendix is normal. There no evidence diverticulitis. No ascites is noted. IMPRESSION: Negative for an aortic dissection.
--- NOTE | 2019-02-15 19:36 | ER ---
Nurse's Notes [facility] Name: Germania Bañuelos Age: 69 yrs Sex: Female : 1950 Arrival Date: 02/15/2019 Time: 13:46 Bed 24 Private MD: Yovanny Ace Diagnosis: Chest pain, unspecified;Low back pain Presentation: 02/15 14:00 Presenting complaint: Patient states: "I woke up with back pain this morning around aa5 5:30am". Pt c/o right low back pain. Denies known injury. Reports nausea. Transition of care: patient was not received from another setting of care. Onset of symptoms was February 15, 2019. Risk Assessment: Do you want to hurt yourself or someone else? Patient reports no desire to harm self or others. Initial Sepsis Screen: Does the patient meet any 2 criteria? No. Patient's initial sepsis screen is negative. Does the patient have a suspected source of infection? No. Patient's initial sepsis screen is negative. Care prior to arrival: None. 14:00 Acuity: MIGUEL 3 aa5 14:00 Method Of Arrival: Ambulatory aa5 Historical: - Allergies: 14:02 Demerol; aa5 14:02 dorvon; aa5 14:02 Ibuprofen; aa5 14:02 Tamiflu; aa5 - Home Meds: 14:02 Crestor Oral [Active]; metoprolol tartrate 25 mg Oral tab 1 tab 2 times per day aa5 [Active]; aspirin 81 mg Oral chew 1 tab once daily [Active]; Tramadol Oral [Active]; gabapentin oral oral [Active]; meloxicam oral oral [Active]; - PMHx: 14:02 COPD; Hypertension; shoulder pain; Hyperlipidemia; aa5 - Immunization history:: Immunization history: Flu vaccine is not up to date. - Social history:: Smoking status: Patient uses tobacco products, smokes one-half pack cigarettes per day. - Ebola Screening: : No symptoms or risks identified at this time. Screenin:39 Abuse screen: Denies threats or abuse. Nutritional screening: No deficits noted. tw2 Tuberculosis screening: No symptoms or risk factors identified. Fall Risk None identified. Assessment: 15:35 General: Appears in no apparent distress. slender, Behavior is calm, cooperative, tw2 appropriate for age. Pain: Complains of pain in back. Neuro: Level of Consciousness is awake, alert, obeys commands, Oriented to person, place, time, situation. Cardiovascular: Heart tones S1 S2 Patient's skin is warm and dry. Respiratory: Airway is patent Respiratory effort is even, unlabored, Respiratory pattern is regular, symmetrical, Breath sounds are clear bilaterally. GI: No signs and/or symptoms were reported involving the gastrointestinal system. Abdomen is flat, Bowel sounds present X 4 quads. : No signs and/or symptoms were reported regarding the genitourinary system. EENT: No signs and/or symptoms were reported regarding the EENT system. Derm: No signs and/or symptoms reported regarding the dermatologic system. Musculoskeletal: Circulation, motion, and sensation intact. Range of motion: intact in all extremities, Reports pain in back. 16:47 Reassessment: Patient appears in no apparent distress at this time. No changes from tw2 previously documented assessment. Patient and/or family updated on plan of care and expected duration. Pain level reassessed. Patient is alert, oriented x 3, equal unlabored respirations, skin warm/dry/pink. 18:52 Reassessment: Patient appears in no apparent distress at this time. No changes from tw2 previously documented assessment. Patient and/or family updated on plan of care and expected duration. Pain level reassessed. Patient is alert, oriented x 3, equal unlabored respirations, skin warm/dry/pink. 20:55 Reassessment: nurse Rodas will call me back to receive the report. mg2 Vital Signs: 14:02 BP 148 / 60; Pulse 70; Resp 18 S; Temp 98.0(TE); Pulse Ox 99% on R/A; Weight 54.43 kg aa5 (R); Height 5 ft. 0 in. (152.40 cm) (R); Pain 9/10; 16:47 BP 165 / 76; Pulse 62; Resp 17; Pulse Ox 98% on R/A; tw2 17:51 BP 163 / 86; Pulse 69; Resp 17; Pulse Ox 99% on R/A; tw2 18:56 BP 153 / 73; Pulse 74; Resp 17; Pulse Ox 100% on R/A; tw2 21:06 BP 137 / 64; Pulse 68; Resp 18; Temp 98(O); Pulse Ox 100% ; mg2 14:02 Body Mass Index 23.44 (54.43 kg, 152.40 cm) aa5 ED Course: 13:46 Patient arrived in ED. as 13:47 Yovanny Ace DO is Private Physician. as 14:01 Triage completed. aa5 15:35 Bed in low position. Call light in reach. 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 Pulse ox on. NIBP on. tw2 15:36 Rusty Modi PA is PHCP. [facility] 15:36 Gil Grissom MD is Attending Physician. [facility] 15:39 Marianela Maher, RN is Primary Nurse. tw2 15:39 Arm band placed on. tw2 15:54 Radiology exam delayed due to lab results not completed at this time. (BUN/Creatinine) sj IV insertion attempt and/or patient not having appropriate IV at this time. 16:05 Initial lab(s) drawn, by ca, sent to lab. Inserted saline lock: 22 gauge in right lt1 antecubital area, using aseptic technique. 16:20 Radiology exam delayed due to lab results not completed at this time. (BUN/Creatinine). mo 16:25 EKG done, by rad technologist. reviewed by Rusty BUTTS. 3 17:[address] via stretcher. mo 17:22 CT Aorta for Dissection In Process Unspecified. EDMS 19:02 Report given to DEBRA Mcneal. tw2 19:35 Ata Howard MD is Hospitalizing Provider. [facility] 20:55 No provider procedures requiring assistance completed. Patient admitted, IV remains in mg2 place. Administered Medications: No medications were administered Outcome: 19:35 Decision to Hospitalize by Provider. [facility] 21:06 Admitted to Med/surg accompanied by tech, via wheelchair, room 214, with chart, Report mg2 called to DEBRA Rodas 21:06 Condition: stable 21:06 Instructed on the need for admit, Demonstrated understanding of instructions. 21:07 Patient left the ED. [facility] Signatures: Dispatcher [employer] EDMS Rusty Modi PA PA jmm Jones, Susan sj Martinez, Amelia as Calderon, Audri, RN RN aa5 Marianela Maher RN RN 2 Jagdish Garibay Michele, RN RN [facility] Jacqueline Fan 3 Elissa Huang lt1
--- NOTE | 2019-02-15 19:36 | EDPHYS ---
Physician Documentation [facility] Name: Germania Bañuelos Age: 69 yrs Sex: Female : 1950 Arrival Date: 02/15/2019 Time: 13:46 Bed 24 Private MD: Yovanny Ace ED Physician Gil Grissom HPI: 02/15 15:51 This 69 yrs old Female presents to ER via Ambulatory with complaints of Back jmm Pain. 15:51 The patient presents with pain that is acute, with no known mechanism of injury. Onset: jm The symptoms/episode began/occurred gradually, this morning. The pain radiates to the chest. This is a 69 year old female with a history of htn, hlp, CAD, COPD that presents to the ED with complaints of lower back pain which began to radiate to her chest and right leg. Patient denies shortness of breath. Patient denies similar episode in the past. . Historical: - Allergies: 14:02 Demerol; aa5 14:02 dorvon; aa5 14:02 Ibuprofen; aa5 14:02 Tamiflu; aa5 - Home Meds: 14:02 Crestor Oral [Active]; metoprolol tartrate 25 mg Oral tab 1 tab 2 times per day aa5 [Active]; aspirin 81 mg Oral chew 1 tab once daily [Active]; Tramadol Oral [Active]; gabapentin oral oral [Active]; meloxicam oral oral [Active]; - PMHx: 14:02 COPD; Hypertension; shoulder pain; Hyperlipidemia; aa5 - Immunization history:: Immunization history: Flu vaccine is not up to date. - Social history:: Smoking status: Patient uses tobacco products, smokes one-half pack cigarettes per day. - Ebola Screening: : No symptoms or risks identified at this time. ROS: 15:51 Constitutional: Negative for fever, chills, and weight loss. jmm 15:51 Cardiovascular: Positive for chest pain. 15:51 Back: Positive for pain with movement. 15:51 All other systems are negative. Exam: 15:51 Constitutional: This is a well developed, well nourished patient who is awake, alert, jmm and in no acute distress. Head/Face: atraumatic. Eyes: EOMI, no conjunctival erythema appreciated ENT: Moist Mucus Membranes Neck: Trachea midline, Supple Chest/axilla: Normal chest wall appearance and motion. Cardiovascular: Regular rate and rhythm. No edema appreciated Respiratory: Normal respirations, no respiratory distress appreciated Abdomen/GI: Non distended, soft 15:51 MS/ Extremity: Moves all extremities, no obvious deformities appreciated, no edema noted to the lower extremities Neuro: Awake and alert, normal gait Psych: Behavior is normal, Mood is normal, Patient is cooperative and pleasant 15:51 Back: ROM is painful, CVA tenderness, is absent, vertebral tenderness, is appreciated at T11 and T12. Vital Signs: 14:02 BP 148 / 60; Pulse 70; Resp 18 S; Temp 98.0(TE); Pulse Ox 99% on R/A; Weight 54.43 kg aa5 (R); Height 5 ft. 0 in. (152.40 cm) (R); Pain 9/10; 16:47 BP 165 / 76; Pulse 62; Resp 17; Pulse Ox 98% on R/A; tw2 17:51 BP 163 / 86; Pulse 69; Resp 17; Pulse Ox 99% on R/A; tw2 18:56 BP 153 / 73; Pulse 74; Resp 17; Pulse Ox 100% on R/A; tw2 21:06 BP 137 / 64; Pulse 68; Resp 18; Temp 98(O); Pulse Ox 100% ; mg2 14:02 Body Mass Index 23.44 (54.43 kg, 152.40 cm) aa5 MDM: 15:51 Patient medically screened. [facility] 19:34 Data reviewed: vital signs, nurses notes. Counseling: I had a detailed discussion with stoney the patient and/or guardian regarding: the historical points, exam findings, and any diagnostic results supporting the discharge/admit diagnosis, the need for further work-up and treatment in the hospital, to return to the emergency department if symptoms worsen or persist or if there are any questions or concerns that arise at home. ED course: Patient is moderate risk based on HEART score. Over 1 year since last chest pain admission. I discussed the patient with Dr. Howard whom accepted admission. . 02/15 15:51 Order name: Basic Metabolic Panel; Complete Time: 16:46 [facility] 02/15 15:51 Order name: CBC with Diff; Complete Time: 16:38 [facility] 02/15 15:51 Order name: LFT's; Complete Time: 16:46 [facility] 02/15 15:51 Order name: Magnesium; Complete Time: 16:46 [facility] 02/15 15:51 Order name: NT PRO-BNP; Complete Time: 16:46 [facility] 02/15 15:51 Order name: PT-INR; Complete Time: 16:38 [facility] 02/15 15:51 Order name: Troponin (emerg Dept Use Only); Complete Time: 16:46 [facility] 02/15 16:26 Order name: Urine Dipstick--Ancillary (enter results); Complete Time: 18:01 02/15 20:26 Order name: CBC with Automated Diff [facility] 02/15 20:26 Order name: CBC with Automated Diff [facility] 02/15 20:26 Order name: Comprehensive Metabolic Panel [facility] 02/15 20:26 Order name: Comprehensive Metabolic Panel [facility] 02/15 20:26 Order name: Troponin I [facility] 02/15 20:26 Order name: Troponin I [facility] 02/15 15:51 Order name: EKG; Complete Time: 15:52 [facility] 02/15 15:51 Order name: Cardiac monitoring; Complete Time: 16:05 [facility] 02/15 15:51 Order name: EKG - Nurse/Tech; Complete Time: 16:06 [facility] 02/15 15:51 Order name: IV Saline Lock; Complete Time: 16:05 [facility] 02/15 15:51 Order name: Labs collected and sent; Complete Time: 16:06 [facility] 02/15 15:51 Order name: O2 Per Protocol; Complete Time: 16:06 [facility] 02/15 15:51 Order name: O2 Sat Monitoring; Complete Time: 16:06 [facility] 02/15 15:52 Order name: CT Aorta for Dissection; Complete Time: 18:01 [facility] 02/15 20:26 Order name: CONS Pharmacy Consult [facility] 02/15 20:26 Order name: Heart Healthy [facility] 02/15 20:26 Order name: EKG Electrocardiogram [facility] 02/15 20:26 Order name: EKG Electrocardiogram [facility] 02/15 20:26 Order name: Troponin I [facility] Administered Medications: No medications were administered Disposition: 02/15/19 19:35 Hospitalization ordered by Ata Howard for Observation. Preliminary diagnosis are Chest pain, unspecified, Low back pain. - Bed requested for Telemetry/MedSurg (observation). - Status is Observation. mg2 - Condition is Stable. - Problem is new. - Symptoms have improved. UTI on Admission? No Addendum: 02/19/2019 08:54 Co-signature as Attending Physician, Gil Grissom MD I agree with the assessment and k dr plan of care. Signatures: Dispatcher [employer] EDMS Adeola Clinton RN RN Gil Grissom MD MD [facility] Rusty Modi PA PA brandan Fabiola Munoz RN RN aa5 John Avalos RN RN mg2 Corrections: (The following items were deleted from the chart) 02/15 20:28 19:35 Hospitalization Ordered by Ata Howard MD for Observation. Preliminary diagnosis is Chest pain, unspecified; Low back pain. Bed requested for Telemetry/MedSurg (observation). Status is Observation. Condition is Stable. Problem is new. Symptoms have improved. UTI on Admission? No. [facility] 21:07 20:28 02/15/2019 19:35 Hospitalization Ordered by Ata Howard MD for Observation. mg2 Preliminary diagnosis is Chest pain, unspecified; Low back pain. Bed requested for Telemetry/MedSurg (observation). Status is Observation. Condition is Stable. Problem is new. Symptoms have improved. UTI on Admission? No.
[2019-02-15] MEDS ORDERED: ONDANSETRON 4 MG/2 ML VIAL IV PRN (20:21)
[2019-02-15] MEDS ORDERED: ACETAMINOPHEN 500 MG TAB PO PRN (20:21)
[2019-02-15] MEDS ORDERED: CYCLOBENZAPRINE 10 MG TAB PO PRN (20:21)
[2019-02-15] MEDS ORDERED: NA CHLORIDE 0.9% 1,000 ML IV SCH (21:00)
[2019-02-15 21:42] VITALS: O2SAT 100
[2019-02-15 22:02] VITALS: BMI 23.4
[2019-02-15] MEDS: MORPHINE 4 MG/ML SYR IV PRN (23:49)
[2019-02-15] MEDS: dexAMETHasone 10 MG/ML VIAL IV SCH (23:57)
--- NOTE | 2019-02-16 00:30 | P.HP ---
Certification for Inpatient Patient admitted to: Observation With expected LOS: <2 Midnights Patient will require the following post-hospital care: None Practitioner: I am a practitioner with admitting privileges, knowledge of patient current condition, hospital course, and medical plan of care. Services: Services provided to patient in accordance with Admission requirements found in Title 42 Section 412.3 of the Code of Federal Regulations Patient History Date of Service: 02/15/19 Reason for admission: Chest pain rule out acute coronary syndrome; low-back pain ; History of Present Illness: Patient is a 69-year-old female came into the hospital with complaints of pain on the right side of her lower back. She says the pain shot up through her chest and she felt some numbness and tingling down her left arm. She has a history of coronary artery disease with stent placement. She came into the emergency room for further evaluation. In the ER her labs and EKG did not reveal any acute findings. CT for aortic dissection was negative as well. Patient was admitted to the hospital for further workup. She tells me she has been following up with her ophthalmologist, Dr. Nelson. She is scheduled for an outpatient cardiac stress test, but she ended up in the hospital this evening. Will admit her to the hospital. Nothing most of her back pain is from myalgias. She has been getting ready to move and although she has not been doing any heavy lifting she has been putting a lot of things in boxes. Possibly , the repetitive bending house calls her to have some lower back issues. The chest pain will need to be further investigated with an echocardiogram and a stress test along with serial troponins and EKG. Allergies meperidine [From Demerol] Allergy (Verified 12/09/16 00:58) Hives/Rash oseltamivir [From Tamiflu] Allergy (Verified 12/09/16 00:58) Hives/Rash dorvon Allergy (Uncoded 12/09/16 02:05) Unknown Home Medications: Metoprolol Tartrate 1 tab PO BID 12/09/16 Tramadol HCl [Ultram] 1 pill PO BID 12/09/16 Aspirin Tab [Yary Aspirin*] 1 tab PO DAILY 10/19/17 Gabapentin 1 cap PO BID 02/15/19 - Past Medical/Surgical History Has patient received pneumonia vaccine in the past: No Diabetic: No -: Hypertension -: COPD -: Cholesterol -: CAD -: Stent X1 - Family History Father Medical History: Hypertension, Cancer Notes: pancretic Mother Medical History: Hypertension Sister Medical History: Cancer Notes: Cervical - Social History Smoking Status: Current every day smoker Alcohol use: No CD- Drugs: No Caffeine use: Yes Place of Residence: Home Review of Systems 10-point ROS is otherwise unremarkable Physical Examination - Vital Signs Temperature: 97.4 F Blood Pressure: 182/72 Pulse: 69 Respirations: 17 Pulse Ox (%): 99 - Physical Exam General: Alert, In no apparent distress, Oriented x3 HEENT: Atraumatic, PERRLA, Mucous membr. moist/pink, EOMI, Sclerae nonicteric Neck: Supple, 2+ carotid pulse no bruit, No LAD, Without JVD or thyroid abnormality Respiratory: Clear to auscultation bilaterally, Normal air movement Cardiovascular: Regular rate/rhythm, Normal S1 S2, No murmurs Gastrointestinal: Normal bowel sounds, Soft and benign, Non-distended, No tenderness Musculoskeletal: No clubbing, No swelling, No tenderness Integumentary: No rashes Neurological: Normal gait, Normal speech, Normal strength at 5/5 x4 extr, Normal tone, Sensation intact, Cranial nerves 3-12 intact, Normal affect Lymphatics: No axilla or inguinal lymphadenopathy - Studies Laboratory Data (last 24 hrs) 02/15/19 16:04: PT 11.4, INR 0.96 02/15/19 16:04: WBC 12.3 H, Hgb 13.1, Hct 40.0, Plt Count 217 02/15/19 16:04: Sodium 137, Potassium 4.0, BUN 12, Creatinine 0.99, Glucose 91, Magnesium 2.1, Total Bilirubin 0.7, AST 17, ALT 17, Alkaline Phosphatase 119 H Assessment & Plan - Problems (Diagnosis) (1) Chest pain, rule out acute myocardial infarction Current Visit: Yes Status: Acute (2) CAD (coronary artery disease) Current Visit: No Status: Chronic Qualifiers: (3) History of COPD Current Visit: Yes Status: Acute (4) Chronic pain Current Visit: No Status: Chronic Qualifiers: (5) HTN (hypertension) Onset Date: 10/19/17 Current Visit: No Status: Chronic Qualifiers: (6) Hyperlipidemia Current Visit: No Status: Chronic Qualifiers: (7) Tobacco abuse Onset Date: 10/19/17 Current Visit: No Status: Chronic - Plan Plan: 1. Serial troponins and EKG 2. Cardiology consultation 3. Echocardiogram and stress test in AM 4. Anti-platelet therapy, anti coagulation, beta-sarah, statin, and O2 as needed 5. IV morphine for pain 6. Nitro p.r.n. 7. Medication for lower back pain including muscle relaxer, anti-inflammatory, and pain medication 8. GI and DVT prophylaxis Discharge Plan: Home Plan to discharge in: 24 Hours - Advance Directives Does patient have a Living Will: No Does patient have a Durable POA for Healthcare: No - Code Status/Comfort Care Code Status Assessed: Yes Code Status: Full Code Critical Care: No Time Spent Managing PTS Care (In Minutes): 45
[2019-02-16] MEDS: MORPHINE 4 MG/ML SYR IV PRN (04:26)
[2019-02-16 05:06] LABS: Absolute Lymphocytes (CBC) 1.1 K/uL (0.7-4.9); Basophils % 0.7 % (0-1.3); Hematocrit 41.6 % (36.0-45.0); Lymphocytes % 10.4 % (15.3-44.8); MPV 11.6 fL (7.6-11.3); RBC Red Blood Cell Count 4.37 M/uL (3.86-4.86)
[2019-02-16] MEDS: dexAMETHasone 10 MG/ML VIAL IV SCH (05:24)
[2019-02-16 05:26] LABS: ALT/SGPT 18 U/L (12-78); AST/SGOT 13 U/L (15-37); Albumin 3.8 g/dL (3.4-5.0); Alkaline Phosphatase 117 U/L (45-117); BUN Blood Urea Nitrogen 12 mg/dL (7-18); Bicarbonate 24 mmol/L (21-32); Bilirubin Total 0.5 mg/dL (0.2-1.0); Glucose Level 114 mg/dL (74-106); Potassium 4.3 mmol/L (3.5-5.1); Sodium Level 139 mmol/L (136-145); Troponin I < 0.02 ng/mL (0.0-0.045)
[2019-02-16] MEDS: GABAPENTIN 300 MG CAP PO SCH ×2 (07:37→11:45)
[2019-02-16] MEDS ORDERED: REGADENOSON 0.4 MG/5 ML SYR IV ONE (07:50)
[2019-02-16] MEDS ORDERED: PNEUMOCOCCAL VACCINE 0.5 ML IMVAC ONE (08:00)
--- NOTE | 2019-02-16 08:04 | CON ---
Date of Consultation: 02/16/[address] Howard's service on 02/15/2019. I saw the patient on 02/16/2019. Reason For Consultation: Chest pain. History Of Present Illness: Ms. Bañuelos is a 69-year-old woman, has chronic pain, hypertension, COPD, dyslipidemia, came in with chest pain, radiating to the back. No nausea, vomiting, diaphoresis, PND , orthopnea, pedal edema, palpitations, or syncope. Pain was not exertional. Denies any fever or ch ills or cough. Echocardiogram and carotid Doppler in October 2017 were negative. She had a CTA today that was negative. Her BNP was 680. Otherwise, negative troponin. Allergies: DEMEROL, DARVON, TAMIFLU AND IBUPROFEN. Review of Systems: Negative. Social History: Negative. Family History: Negative. Medications: At home, include aspirin, Neurontin, metoprolol, Ultram, and Crestor. Physical Examination: Vital Signs: Stable. She was afebrile. HEENT: Negative. Neck: Supple with no bruit. Chest: Clear to auscultation and percussion. Cardiac: Exam revealed a regular rhythm and rate. No murmurs, gallops, or rubs. Abdomen: Benign. Extremities: Revealed no clubbing, cyanosis, or edema. Diagnostic Data: Listed earlier. Impression And Plan: Atypical chest pain in a patient with multiple risk factors for heart disease i ncluding hypertension, dyslipidemia and chronic obstructive pulmonary disease. I think an echocardio gram and Lexiscan are reasonable. We will see what those shows prior to making any final decisions. Her elevated BNP is nonspecific, may be secondary to COPD and hypertension. Her blood pressure is w ell controlled and dyslipidemia is well controlled. BLADIMIR/MODL Voice ID: [id number] Report ID: [id number]
[2019-02-16] MEDS ORDERED: TRAMADOL HCL 50 MG TAB PO SCH (09:00)
[2019-02-16] MEDS ORDERED: METOPROLOL TAR 25 MG TAB PO SCH (09:00)
[2019-02-16] MEDS ORDERED: ASPIRIN 325 MG TAB PO SCH (09:00)
[2019-02-16 09:10] LABS: Blood Morphology Comment NOT SEEN (NOT SEEN); Platelet Estimate ADEQ
[2019-02-16 10:18] VITALS: BP 146/67; TEMP 97.1
--- NOTE | 2019-02-16 10:25 | RAD REPORT ---
EXAM DESCRIPTION: NM - Rest Stress Cardiac Imaging - 02/16/2019 8:43 am CLINICAL HISTORY: Chest pain COMPARISON: None. TECHNIQUE: The patient was administered 10.3 mCi of Tc 99m Sestamibi prior to resting SPECT imaging of the heart. The patient was then administered 30.6 mCi of Tc 99m Sestamibi following exercise or ph armacologic stress. Multiplanar SPECT images were reviewed. FINDINGS: The end diastolic volume is 51 ml, the end systolic volume is 9 ml, and the ejection fract ion is 82 %. No stress-induced ischemia confirmed. Inferolateral wall differential is not clearly different. Patie nt does have a small focus of diminished activity anteroseptal wall not clearly different between res t and stress imaging. This could be breast attenuation artifact or scarring. IMPRESSION: No stress-induced ischemia confirmed Anteroseptal defect does not change between rest and stress imaging. This is scarring or breast atten uation artifact. Normal ventricular volumes and normal ejection fraction.
--- NOTE | 2019-02-16 12:34 | ECHO ---
HEIGHT: 5 ft 0 in WEIGHT: 120 lb 0 oz DATE OF STUDY: 02/16/[address]: Ata Howard MD 2-DIMENSIONAL: YES M.MODE: YES DOPPLER: YES COLOR FLOW: YES TDS: NO PORTABLE: NO DEFINITY: NO BUBBLE STUDY: NO DIAGNOSIS: CHEST PAIN CARDIAC HISTORY: CATHERIZATION: YES SURGERY: NO PROSTHETIC VALVE: NO PACEMAKER: NO MEASUREMENTS (cm) DIASTOLIC (NORMALS) SYSTOLIC (NORMALS) IVSd 0.9 (0.6-1.2) LA Diam 2.8 (1.9-4.0) LVEF 76% LVIDd 3.5 (3.5-5.7) LVIDs 2.0 (2.0-3.5) %FS 44% LVPWd 1.1 (0.6-1.2) Ao Diam 2.2 (2.0-3.7) 2 DIMENSIONAL ASSESSMENT: RIGHT ATRIUM: NORMAL LEFT ATRIUM: NORMAL RIGHT VENTRICLE: NORMAL LEFT VENTRICLE: NORMAL TRICUSPID VALVE: NORMAL MITRAL VALVE: NORMAL PULMONIC VALVE: NORMAL AORTIC VALVE: NORMAL PERICARDIAL EFFUSION: NONE AORTIC ROOT: NORMAL LEFT VENTRICULAR WALL MOTION: NORMAL. DOPPLER/COLOR FLOW: NORMAL. COMMENTS: NORMAL 2D ECHO WITH DOPPLER. NO WALL MOTION ABNORMALITY. NO EFFUSION. TECHNOLOGIST: RASTA BRUMFIELD
--- NOTE | 2019-02-16 12:36 | EKG ---
Test Date: 2019-02-15 Test Time: 16:09:14 Toe Former: ROBIN MEASUREMENT RESULTS: Intervals: Rate: 60 DE: 180 QRSD: 92 QT: 426 QTc: 426 Angier: P: 61 DE: 180 QRS: -86 T: 56 INTERPRETIVE STATEMENTS: Normal sinus rhythm Incomplete right bundle branch block Left anterior fascicular block Abnormal ECG Compared to ECG 10/18/2017 20:00:34 Incomplete right bundle-branch block now present Left anterior fascicular block now present Electronically Signed On 02-16-19 12:33:01 CDT by Bladimir Nelson
--- NOTE | 2019-02-16 12:46 | TREADPHA ---
DX: CHEST PAIN Date of Study: 02/16/19 Ht: 5 0 Wt: 120 lb 0 oz Consulting Physician: SHANICE MEDICATIONS: TYLENOL, PROVENTIL, NORVASC, BROVANA, ASPIRIN, LIPITOR, PLAVIX, BENTYL, CYMBALTA, LOVENOX, NEURONTIN, ATROVENT, KEPPRA, LEVAQUIN, TOPROL, PRAMAGTINE, SINGULAIR. HISTORY: 69 YEAR OLD FEMALE WITH COMPLAINTS OF CHEST PAIN. MEDICAL HISTORY OF CHRONIC OBSTRUCTIVE PULMONARY DISEASE, HYPERTENSION, HYPERLIPIDEMIA. PHYSICIAL EXAMINATION: RESTING B.P.: 133/57 RESTING H.R.: 70 RESTING EKG: SINUS RHYTHM, RIGHT VENTRICULAR HYPERTROPHY, ICOMPLETE RIGHT BUNDLE BRANCH BLOCK. PROTOCOL: LEXISCAN EXERCISE TIME: 3:30 B.P. AT PEAK STRESS: 98/87 IMPRESSION: LEXISCAN INJECTED, CARDIOLITE INJECTED PER PROTOCOL. SEE NUCLEAR MEDICINE REPORT. NO SUPRA VENTRICULAR TACHYCARDIA. NO VENTRICULAR TACHYCARDIA. FREQUENT PREMATURE VENTRICULAR COMPLEXES THROUGHOUT. 5/10 ON PAIN SCALE, CHEST PAIN, AFTER INJECTION. PATIENT STATED EASED UP IN RECOVERY.
== END 2019-02-16 11:50 | disposition home or self-care (01) ==
LOC: ER 13:46 → 2ND 20:53
PROVIDERS: ADMIT Hospitalist; ATTEND Hospitalist
DX: R07.89 Other chest pain (principal); I25.10 Atherosclerotic heart disease of native coronary artery without angina pectoris; J44.9 Chronic obstructive pulmonary disease, unspecified; M54.5 Low back pain; G89.29 Other chronic pain; I10 Essential (primary) hypertension; E78.5 Hyperlipidemia, unspecified; I45.2 Bifascicular block; I49.3 Ventricular premature depolarization; I51.7 Cardiomegaly; R94.31 Abnormal electrocardiogram [ECG] [EKG]; F17.210 Nicotine dependence, cigarettes, uncomplicated; Z79.82 Long term (current) use of aspirin; Z79.1 Long term (current) use of non-steroidal anti-inflammatories (NSAID); Z79.899 Other long term (current) drug therapy; Z95.5 Presence of coronary angioplasty implant and graft; Z79.891 Long term (current) use of opiate analgesic
CPT/HCPCS: 93005; 93017; 93306; 85025 ×2; 80048; 36415; 83735; 85610; 80076; 81003; 84484 ×3; 80053; 83880; 71275; 74175; 78452; 99285; Q9967; J1100 ×2; J2785; J7030; J2405; A9500; G0378 ×2

== ENCOUNTER 2019-02-23 21:13 | Emergency (ER) | payer OTHER ==
--- OUTSIDE RECORDS SUMMARY | 2019-02-23 21:15 | XMS REPORT ---
:1950 [facility] Address [address] [place] [address] Care Team Providers Name Role Phone JORGE [...] Lymph Abs (test code=ALYMPH) 3.4 K/cumm 0.5-4.6 Henderson Abs (test code=AMONO) 0.7 K/cumm 0.0-1.2 Eos Abs (test code=AEOS) 0.10 K/cumm 0.00-0.74 Baso Abs (test code=ABASO) 0.1 K/cumm 0.00-0.21 Lipid [id number] 23:22:00 Test Item Value Reference Range Comments Cholesterol (test 136 mg/dL 0-200 code=CHOL) Triglycerides (test 100 mg/dL 9-200 code=TRIG) HDL (test code=HDL) 53 mg/dL 50-60 Chol/HDL (test 2.6 Ratio 0.0-4.4 code=CHOLPHDL) LDL, Calculated (test 63 mg/dL 0-130 (NOTE)RISK OF HEART code=LDLC) DISEASEPublished by [place] Heart AssociationAnalyte Optimal Boderline Increased RiskCHOL <200 200-239 >240TRIG <150 150-199 >200HDL Male: >60 <40HDL Female: >60 <50LDL <100 130-159 >160LDL NEAR OPTIMAL IS 100-129 VLDL (test code=VLDL) 20 mg/dL 5-40 LDL/HDL (test code=LDLPHDL) 1 Comprehensive Metabolic [id number] 23:22:00 Test Item Value Reference Range Comments [...] race is not provided, and the patient isAfrican-Guatemalan, multiply by 1.212. If sex is not [...]
[2019-02-23 21:59] LABS: Basophils % 0.5 % (0-1.3); Hematocrit 37.8 % (36.0-45.0); Lymphocytes % 26.9 % (15.3-44.8); RBC Red Blood Cell Count 3.98 M/uL (3.86-4.86)
[2019-02-23] MEDS ORDERED: MORPHINE 2 MG/ML SYR ONE (22:02)
[2019-02-23] MEDS ORDERED: ONDANSETRON 4 MG/2 ML VIAL ONE (22:03)
[2019-02-23] MEDS ORDERED: NA CHLORIDE 0.9% 1,000 ML ONE (22:03)
[2019-02-23 22:29] LABS: Albumin 3.3 g/dL (3.4-5.0); Bilirubin Direct 0.1 mg/dL (0-0.2); Bilirubin Total 0.3 mg/dL (0.2-1.0); Potassium 3.9 mmol/L (3.5-5.1); Protein, Total 6.5 g/dL (6.4-8.2)
--- NOTE | 2019-02-23 23:57 | ER ---
Nurse's Notes [facility] Name: Germania Bañuelos Age: 69 yrs Sex: Female : 1950 Arrival Date: 02/23/2019 Time: 21:13 Bed 26 Private MD: Diagnosis: Nondisplaced fracture right 10th rib. S/P Fall Presentation: 02/23 21:29 Presenting complaint: Patient states: A week ago I fell out of bed and landed on my la1 side. Since then it has been hurting badly. Transition of care: patient was not received from another setting of care. Onset of symptoms was February 23, 2019. Risk Assessment: Do you want to hurt yourself or someone else? Patient reports no desire to harm self or others. Initial Sepsis Screen: Does the patient meet any 2 criteria? No. Patient's initial sepsis screen is negative. Does the patient have a suspected source of infection?. Care prior to arrival: None. 21:29 Method Of Arrival: Ambulatory la1 21:29 Acuity: MIGUEL 3 la1 Historical: - Allergies: 21:30 Demerol; la1 21:30 dorvon; la1 21:30 Ibuprofen; la1 21:30 Tamiflu; la1 - Home Meds: 23:26 aspirin 81 mg Oral chew 1 tab once daily [Active]; Crestor Oral [Active]; gabapentin mg2 Oral [Active]; meloxicam Oral [Active]; metoprolol tartrate 25 mg Oral tab 1 tab 2 times per day [Active]; Tramadol Oral [Active]; - PMHx: 21:30 COPD; Hyperlipidemia; Hypertension; shoulder pain; la1 - Immunization history:: Adult Immunizations up to date. - Social history:: Smoking status: Patient uses tobacco products, smokes one pack cigarettes per day. - Ebola Screening: : No symptoms or risks identified at this time. Screenin:31 Abuse screen: Denies threats or abuse. Nutritional screening: No deficits noted. la1 Tuberculosis screening: No symptoms or risk factors identified. Fall Risk None identified. Assessment: 21:32 General: Appears in no apparent distress. Behavior is calm, cooperative. Pain: la1 Complains of pain in epigastric area, right upper quadrant and left upper quadrant. Neuro: Level of Consciousness is awake, alert, obeys commands, Oriented to person, place, time, situation. Cardiovascular: Heart tones S1 S2 present. Respiratory: Airway is patent Respiratory effort is even, unlabored, Respiratory pattern is regular, symmetrical. GI: No signs and/or symptoms were reported involving the gastrointestinal system. : No signs and/or symptoms were reported regarding the genitourinary system. Vital Signs: 21:31 BP 147 / 79; Pulse 77; Resp 16; Temp 98.8(O); Pulse Ox 100% on R/A; Weight 58.97 kg; la1 Height 5 ft. 0 in. (152.40 cm); 23:23 Pulse 74; Resp 18; Pulse Ox 97% on R/A; mg2 21:31 Body Mass Index 25.39 (58.97 kg, 152.40 cm) la1 ED Course: 21:13 Patient arrived in ED. ds1 21:29 Kendrick Fabian, RN is Primary Nurse. la1 21:30 Triage completed. la1 21:31 Arm band placed on left wrist. la1 21:32 Call light in reach. Side rails up X 1. la1 21:36 Leonardo Zavala MD is Attending Physician. pkl 22:[address] vm2 22:49 CT completed. Patient tolerated procedure well. Patient moved back from CT. nj 22:59 Chest Abdomen Pelvis W Cont In Process Unspecified. EDMS 23:23 No provider procedures requiring assistance completed. Inserted saline lock: 20 gauge mg2 in left antecubital area, using aseptic technique. by DEBRA Marks. 02/24 00:13 IV discontinued, intact, bleeding controlled, No redness/swelling at site. Pressure la1 dressing applied. Administered Medications: 02/23 22:07 Drug: morphine 2 mg {Note: RASS-0.} Route: IVP; Site: left antecubital; la1 02/24 00:12 Follow up: Response: RASS: Alert and Calm (0) la1 02/23 22:08 Drug: NS 0.9% 1000 ml Route: IV; Rate: 125 ml/hr; Site: left antecubital; la1 02/24 00:12 Follow up: IV Status: Order to discontinue infusion la1 02/23 22:08 Drug: Zofran 4 mg Route: IVP; Site: left antecubital; la1 23:31 Follow up: Response: No adverse reaction; Marked relief of symptoms mg2 Outcome: 23:59 Discharge ordered by MD. aguilar 02/24 00:13 Discharged to home ambulatory. la1 Condition: stable Discharge instructions given to patient, Instructed on discharge instructions, follow up and referral plans. medication usage, Demonstrated understanding of instructions, follow-up care, medications, Prescriptions given X 1. 00:14 Patient left the ED. la1 Signatures: Dispatcher [employer] EDMS Leonardo Zavala MD MD pkl Rosa M Calderon ds1 Kendrick Fabian RN RN la1 Jagdish Garibay [facility] John Avalos RN RN mg2 Corrections: (The following items were deleted from the chart) 02/23 21:54 21:29 Acuity: MIGUEL 4 la1 la1
--- NOTE | 2019-02-23 23:58 | EDPHYS ---
Physician Documentation [facility] – [place], [place] Name: Germania Bañuelos Age: 69 yrs Sex: Female : 1950 Arrival Date: 02/23/2019 Time: 21:13 Bed 26 Private MD: ED Physician Leonardo Zavala HPI: 02/23 21:47 This 69 yrs old Female presents to ER via Ambulatory with complaints of Fall pkl Injury, Upper Abd Pain. 21:47 Details of fall: The patient fell from an upright position. Onset: The symptoms/episode pkl began/occurred today. Associated injuries: The patient sustained right upper and lower back. Patient said she also fell 1 week ago and injured her back.. Historical: - Allergies: 21:30 Demerol; la1 21:30 dorvon; la1 21:30 Ibuprofen; la1 21:30 Tamiflu; la1 - Home Meds: 23:26 aspirin 81 mg Oral chew 1 tab once daily [Active]; Crestor Oral [Active]; gabapentin mg2 Oral [Active]; meloxicam Oral [Active]; metoprolol tartrate 25 mg Oral tab 1 tab 2 times per day [Active]; Tramadol Oral [Active]; - PMHx: 21:30 COPD; Hyperlipidemia; Hypertension; shoulder pain; la1 - Immunization history:: Adult Immunizations up to date. - Social history:: Smoking status: Patient uses tobacco products, smokes one pack cigarettes per day. - Ebola Screening: : No symptoms or risks identified at this time. ROS: 21:47 Eyes: Negative for injury, pain, redness, and discharge, ENT: Negative for injury, pkl pain, and discharge, Neck: Negative for injury, pain, and swelling, Cardiovascular: Negative for chest pain, palpitations, and edema, Respiratory: Negative for shortness of breath, cough, wheezing, and pleuritic chest pain. 21:47 Abdomen/GI: Positive for abdominal pain, of the right upper quadrant and right lower quadrant. 21:47 Back: Positive for pain at rest, of the right upper and lower back. 21:47 : Negative for urinary symptoms. 21:47 MS/extremity: Negative for acute changes. 21:47 Skin: Negative for rash. 21:47 Neuro: Negative for altered mental status, loss of consciousness. Exam: 21:47 Head/Face: Normocephalic, atraumatic. Eyes: Pupils equal round and reactive to light, pkl extra-ocular motions intact. Lids and lashes normal. Conjunctiva and sclera are non-icteric and not injected. Cornea within normal limits. Periorbital areas with no swelling, redness, or edema. ENT: Nares patent. No nasal discharge, no septal abnormalities noted. Tympanic membranes are normal and external auditory canals are clear. Oropharynx with no redness, swelling, or masses, exudates, or evidence of obstruction, uvula midline. Mucous membranes moist. Neck: Trachea midline, no thyromegaly or masses palpated, and no cervical lymphadenopathy. Supple, full range of motion without nuchal rigidity, or vertebral point tenderness. No Meningismus. Chest/axilla: Normal chest wall appearance and motion. Nontender with no deformity. No lesions are appreciated. Cardiovascular: Regular rate and rhythm with a normal S1 and S2. No gallops, murmurs, or rubs. Normal PMI, no JVD. No pulse deficits. Respiratory: Lungs have equal breath sounds bilaterally, clear to auscultation and percussion. No rales, rhonchi or wheezes noted. No increased work of breathing, no retractions or nasal flaring. 21:47 Abdomen/GI: Bowel sounds: normal, Palpation: abdomen is soft and non-tender, mild abdominal tenderness, in the right upper quadrant and right lower quadrant. 21:47 Back: pain, that is moderate, of the right upper and lower back. 21:47 : Exam negative for acute changes. 21:47 Musculoskeletal/extremity: Exam is negative for acute changes. 21:47 Skin: Exam negative for rash. 21:47 Neuro: Orientation: is normal, Mentation: is normal, Cranial nerves: grossly normal, Motor: is normal. Vital Signs: 21:31 BP 147 / 79; Pulse 77; Resp 16; Temp 98.8(O); Pulse Ox 100% on R/A; Weight 58.97 kg; la1 Height 5 ft. 0 in. (152.40 cm); 23:23 Pulse 74; Resp 18; Pulse Ox 97% on R/A; mg2 21:31 Body Mass Index 25.39 (58.97 kg, 152.40 cm) la1 MDM: 21:36 Patient medically screened. pkl 23:54 Data reviewed: vital signs, nurses notes, lab test result(s), radiologic studies, CT pkl scan. ED course: Patient feeling better. Discussed lab. and CT Scan results with patient. Advised to follow up with PCP in 2 to 3 days.To return if necessary. Patient understood instructions. 02/23 21:44 Order name: Basic Metabolic Panel; Complete Time: 23:50 pkl 02/23 21:44 Order name: CBC with Diff; Complete Time: 22:27 pkl 02/23 21:44 Order name: Creatinine for Radiology; Complete Time: 22:27 pkl 02/23 21:44 Order name: Hepatic Function; Complete Time: 23:50 pkl 02/23 21:44 Order name: Lipase; Complete Time: 23:50 pkl 02/23 21:44 Order name: IV Saline Lock; Complete Time: 21:52 pkl 02/23 21:44 Order name: Labs collected and sent; Complete Time: 21:52 pkl 02/23 22:37 Order name: Chest Abdomen Pelvis W Cont EDMS Administered Medications: 22:07 Drug: morphine 2 mg {Note: RASS-0.} Route: IVP; Site: left antecubital; [facility] 02/24 00:12 Follow up: Response: RASS: Alert and Calm (0) [facility] 02/23 22:08 Drug: NS 0.9% 1000 ml Route: IV; Rate: 125 ml/hr; Site: left antecubital; ms1 02/24 00:12 Follow up: IV Status: Order to discontinue infusion la02/23 22:08 Drug: Zofran 4 mg Route: IVP; Site: left antecubital; [facility] 23:31 Follow up: Response: No adverse reaction; Marked relief of symptoms mg2 Disposition: 02/23/19 23:59 Discharged to Home. Impression: Nondisplaced fracture right 10th rib. S/P Fall. - Condition is Stable. - Prescriptions for Tylenol- Codeine #3 300-30 mg Oral Tablet - take 1 tablet by ORAL route every 8 hours As needed; 20 tablet. - Medication Reconciliation Form, Thank You Letter, Antibiotic Education, Prescription Opioid Use form. - Follow up: Private Physician; When: 2 - 3 days; Reason: Re-evaluation by your physician. - Problem is new. - Symptoms have improved. Signatures: Dispatcher [employer] EDMS Leonardo Zavala MD MD pkl Kendrick Fabian RN RN la1 John Avalos RN RN mg2 Corrections: (The following items were deleted from the chart) 22:37 22:32 Abdomen Pelvis W Con+CT.RAD.BRZ ordered. EDOK EDOK 22:37 22:33 Thorax W/ [facility] 02/23 23:59 02/23/2019 23:59 Discharged to Home. Impression: Nondisplaced fracture la1 right 10th rib. S/P Fall. Condition is Stable. Forms are Medication Reconciliation Form, Thank You Letter, Antibiotic Education, Prescription Opioid Use. Follow up: Private Physician; When: 2 - 3 days; Reason: Re-evaluation by your physician. Problem is new. Symptoms have improved. pkl
[2019-02-24 01:10] VITALS: O2SAT 97
[2019-02-24 01:12] VITALS: BP 147/79; TEMP 98.8
--- NOTE | 2019-02-26 12:01 | RAD REPORT ---
EXAM DESCRIPTION: Chest Abdomen Pelvis W Cont CLINICAL HISTORY: Fall. TECHNIQUE: CT scan of the chest, abdomen and pelvis was performed with intravenous contrast. 5 mm ax ial images were obtained along with 3 mm coronal and sagittal reformatted images. DOSE OPTIMIZATION: This facility uses dose optimization techniques as appropriate to perform exams, including at least one of the following techniques: 1. Automated exposure control. 2. Adjustment of the mA and/or kV according to patient size (this includes techniques or standardized protocols for targeted exams where dose is matched to the indication/reason for exam, i.e. extremiti es or head). 3. Use of iterative reconstructive technique. INTRAVENOUS CONTRAST: Not documented. Please refer to medical record. COMPARISON: None. FINDINGS: Lung Sheikh: There is moderately severe centrilobular emphysematous lung disease in the upper lobes. There is no pneumothorax. There are no mass lesions. Mediastinal Structures: There is no evidence of aortic aneurysm or dissection. There is moderately severe atherosclerotic disease of the thoracic aorta. There is evidence of coronary arterial disease. There is no evidence of pericardial effusion. There is no adenopathy. Pleural Space: Normal. Axillae: Normal. Chest Wall: Normal. Liver: Normal. Spleen: Normal. Pancreas: Normal. Gallbladder: Normal. Adrenal Glands: Normal. Kidneys: There are small cortical cysts bilaterally. The largest is in the right kidney measuring 1.0 x 1.0 cm. Retroperitoneal Structures: There is extensive atherosclerotic disease about the abdominal aorta and iliofemoral arteries. Bowel Survey: There is increased stool within the ascending, transverse, and descending colon. The appendix is unremarkable. The distal ileum is unremarkable. There is moderately severe distention of the stomach, duodenum and jejunum which are filled with flui d. Findings may reflect enteritis. Uterus and Adnexa: Normal. Urinary Bladder: Normal. Peritoneal Cavity: Normal. Mesenteric Structures: Normal. Abdominal Wall: No hernia. Bony Structures: There is a nondisplaced fracture involving the lateral aspect of the right 10th rib. . There is moderately severe levoscoliosis of the thoracolumbar spine. IMPRESSION: 1. Nondisplaced fracture right 10th rib. 2. Findings suggestive of enteritis. 3. Increased stool within the ascending, transverse, and descending colon. 4. Extensive atherosclerotic disease. 5. Emphysematous lung disease. Electronically signed by: Payam Franco MD 02/23/2019 11:27 PM CDT Due to temporary technical issues with the PACS/Fluency reporting system, reports are being signed by the in house radiologist as a courtesy to ensure prompt reporting. The interpreting radiologist is f ully responsible for the content of the report.
== END 2019-02-24 00:14 | disposition home or self-care (01) ==
LOC: ER 21:13
DX: S22.31XA Fracture of one rib, right side, initial encounter for closed fracture (principal); W19.XXXA Unspecified fall, initial encounter; J44.9 Chronic obstructive pulmonary disease, unspecified; E78.5 Hyperlipidemia, unspecified; I10 Essential (primary) hypertension; Z88.6 Allergy status to analgesic agent; Z88.5 Allergy status to narcotic agent; Z88.8 Allergy status to other drugs, medicaments and biological substances; Z79.82 Long term (current) use of aspirin; F17.210 Nicotine dependence, cigarettes, uncomplicated
CPT/HCPCS: 96361; 85025; 80048; 36415; 80076; 83690; 71260; 74177; 96375; 96374; 99284; Q9967; J2270; J7030; J2405

== ENCOUNTER 2019-03-29 18:09 | Emergency (ER) | payer OTHER ==
--- OUTSIDE RECORDS SUMMARY | 2019-03-29 18:11 | XMS REPORT ---
:1950 [facility] Address [address] [place] [address] Care Team Providers Name Role Phone JORGE [...] Lymph Abs (test code=ALYMPH) 3.4 K/cumm 0.5-4.6 Toombs Abs (test code=AMONO) 0.7 K/cumm 0.0-1.2 Eos Abs (test code=AEOS) 0.10 K/cumm 0.00-0.74 Baso Abs (test code=ABASO) 0.1 K/cumm 0.00-0.21 Lipid [id number] 23:22:00 Test Item Value Reference Range Comments Cholesterol (test 136 mg/dL 0-200 code=CHOL) Triglycerides (test 100 mg/dL 9-200 code=TRIG) HDL (test code=HDL) 53 mg/dL 50-60 Chol/HDL (test 2.6 Ratio 0.0-4.4 code=CHOLPHDL) LDL, Calculated (test 63 mg/dL 0-130 (NOTE)RISK OF HEART code=LDLC) DISEASEPublished by [place] Heart AssociationAnalyte Optimal Boderline Increased RiskCHOL <200 200-239 >240TRIG <150 150-199 >200HDL Male: >60 <40HDL Female: >60 <50LDL <100 130-159 >160LDL NEAR OPTIMAL IS 100-129 VLDL (test code=VLDL) 20 mg/dL 5-40 LDL/HDL (test code=LDLPHDL) 1 Comprehensive Metabolic [id number] 23:22:00 Test Item Value Reference Range Comments [...] race is not provided, and the patient isAfrican-Kyrgyz, multiply by 1.212. If sex is not [...]
[2019-03-29 20:50] LABS: Absolute Lymphocytes (CBC) 3.8 K/uL (0.7-4.9); Basophils % 0.9 % (0-1.3); Hematocrit 43.3 % (36.0-45.0); Lymphocytes % 31.6 % (15.3-44.8); MPV 11.2 fL (7.6-11.3); RBC Red Blood Cell Count 4.55 M/uL (3.86-4.86)
[2019-03-29 20:58] LABS: Protime INR 1.01
[2019-03-29] MEDS ORDERED: NA CHLORIDE 0.9% 1,000 ML ONE (21:04)
[2019-03-29 21:16] LABS: ALT/SGPT 21 U/L (12-78); AST/SGOT 13 U/L (15-37); Albumin 3.9 g/dL (3.4-5.0); Alkaline Phosphatase 152 U/L (45-117); BUN Blood Urea Nitrogen 7 mg/dL (7-18); Bicarbonate 29 mmol/L (21-32); Bilirubin Direct 0.2 mg/dL (0-0.2); Bilirubin Total 0.7 mg/dL (0.2-1.0); Glucose Level 83 mg/dL (74-106); Lipase 146 U/L (73-393); Magnesium 1.9 mg/dL (1.8-2.4); NT PRO-BNP 302 pg/mL (<125); Potassium 3.4 mmol/L (3.5-5.1); Protein, Total 7.3 g/dL (6.4-8.2); Sodium Level 140 mmol/L (136-145); Troponin (Emerg Dept Use Only) < 0.02 ng/mL (0.0-0.045)
--- NOTE | 2019-03-29 22:14 | ER ---
Nurse's Notes [facility] Name: Germania Bañuelos Age: 69 yrs Sex: Female : 1950 Arrival Date: 03/29/2019 Time: 18:12 Bed 30 Private MD: Diagnosis: Vertiginous syndromes in diseases classified elsewhere, unspecified ear;Essential (primary) hypertension;Chronic obstructive pulmonary disease, unspecified;Hypokalemia;Urinary tract infection, site not specified Presentation: 03/29 18:18 Presenting complaint: Patient states: Dizziness and nausea that began at 0600 this morning. Patient was seen by PCP and diagnosed with vertigo. PCP instructed patient to come to ER because he was unsure what was causing her high blood pressure and tachycardia. BP 162/94 (R) and 160/90 (L). Transition of care: patient was not received from another setting of care. Onset of symptoms was March 29, 2019. Risk Assessment: Do you want to hurt yourself or someone else? Patient reports no desire to harm self or others. Initial Sepsis Screen: Does the patient meet any 2 criteria? No. Patient's initial sepsis screen is negative. Does the patient have a suspected source of infection? No. Patient's initial sepsis screen is negative. Note Patient recently broke 10th rib on R side. Care prior to arrival: None. 18:18 Method Of Arrival: Ambulatory ss 18:18 Acuity: MIGUEL 2 ss Historical: - Allergies: 18:23 Demerol; ss 18:23 dorvon; ss 18:23 Tamiflu; ss - PMHx: 18:23 COPD; Hyperlipidemia; Hypertension; shoulder pain; ss - Immunization history:: Adult Immunizations up to date. - Social history:: Smoking status: Patient uses tobacco products, smokes one pack cigarettes per day. - Ebola Screening: : Patient denies exposure to infectious person Patient denies travel to an Ebola-affected area in the 21 days before illness onset. - Family history:: not pertinent. Screenin:45 Abuse screen: Denies threats or abuse. Nutritional screening: No deficits noted. tr5 Tuberculosis screening: No symptoms or risk factors identified. Fall Risk None identified. Assessment: 18:45 General: Appears in no apparent distress. Behavior is calm, cooperative, appropriate tr5 for age. Pain: Complains of pain in face and back Pain does not radiate. Pain currently is 8 out of 10 on a pain scale. Quality of pain is described as aching. Neuro: Level of Consciousness is awake, alert, obeys commands, Oriented to person, place, time, Plant Attendant Or Assistant Operator are equal bilaterally Moves all extremities. Gait is steady, Speech is normal. Cardiovascular: Heart tones present Capillary refill < 3 seconds Pulses are all present. Edema is absent. Respiratory: Airway is patent Respiratory effort is even, unlabored, Respiratory pattern is regular, symmetrical, Respiratory: Breath sounds with crackles bilaterally. GI: Reports nausea. : No signs and/or symptoms were reported regarding the genitourinary system. EENT: No signs and/or symptoms were reported regarding the EENT system. Derm: No signs and/or symptoms reported regarding the dermatologic system. Musculoskeletal: Capillary refill < 3 seconds, Range of motion: intact in all extremities. 20:00 Reassessment: Patient appears in no apparent distress at this time. Patient and/or tr5 family updated on plan of care and expected duration. Pain level reassessed. Patient is alert, oriented x 3, equal unlabored respirations, skin warm/dry/pink. 21:00 Reassessment: Patient appears in no apparent distress at this time. Patient and/or tr5 family updated on plan of care and expected duration. Pain level reassessed. Patient is alert, oriented x 3, equal unlabored respirations, skin warm/dry/pink. 22:00 Reassessment: Patient appears in no apparent distress at this time. No changes from tr5 previously documented assessment. Patient and/or family updated on plan of care and expected duration. Pain level reassessed. Patient is alert, oriented x 3, equal unlabored respirations, skin warm/dry/pink. Patient states feeling better. Vital Signs: 18:18 BP 141 / 92; Pulse 112; Resp 17; Temp 97.4(TE); Pulse Ox 98% ; Weight 48.99 kg; Height ss 5 ft. 0 in. (152.40 cm); Pain 8/10; 19:00 BP 148 / 90; Pulse 100; Resp 20; Pulse Ox 100% on R/A; tr5 20:00 BP 146 / 92; Pulse 98; Resp 19; Pulse Ox 99% on R/A; tr5 21:00 BP 149 / 94; Pulse 99; Resp 19; Pulse Ox 97% on R/A; tr5 22:44 BP 138 / 66; Pulse 86; Resp 18; Pulse Ox 99% on R/A; tr5 18:18 Body Mass Index 21.09 (48.99 kg, 152.40 cm) ED Course: 18:12 Patient arrived in ED. rg4 18:18 Arm band placed on right wrist. ss 18:21 Triage completed. ss 18:36 Get Nelson, RN is Primary Nurse. tr5 18:45 Placed in gown. Bed in low position. Call light in reach. Side rails up X 1. tr5 18:45 Inserted saline lock: 22 gauge in left forearm, using aseptic technique. tr5 19:43 Sridhar Wilcox MD is Attending Physician. margie 20:41 Initial lab(s) drawn, by me, sent to lab. tr5 20:47 CT completed. Patient tolerated procedure well. Patient moved to radiology via mw3 stretcher. 20:48 XRAY Chest (1 view) In Process Unspecified. EDMS 20:50 CT Head Brain wo Cont In Process Unspecified. EDMS 22:13 Bladimir Nelson MD is Referral Physician. margie 22:45 No provider procedures requiring assistance completed. IV discontinued. tr5 Administered Medications: 21:11 Drug: NS 0.9% 1000 ml Route: IV; Rate: 125 ml/hr; Site: left antecubital; tr5 22:18 Follow up: IV Status: Completed infusion tr5 22:30 Drug: Meclizine 25 mg Route: PO; tr5 22:33 Follow up: Response: Medication administered at discharge. tr5 22:31 Drug: Lisinopril 5 mg Route: PO; tr5 22:33 Follow up: Response: Medication administered at discharge. tr5 22:32 Drug: Potassium Effervescent Tablet 25 mEq Route: PO; tr5 22:32 Follow up: Response: Medication administered at discharge. tr5 22:32 Follow up: Response: Medication administered at discharge. tr5 22:32 Drug: Lopressor (metoprolol TARTRATE) 50 mg Route: PO; tr5 22:33 Follow up: Response: Medication administered at discharge. tr5 Outcome: 22:13 Discharge ordered by . margie 22:45 Discharged to home ambulatory. tr5 22:45 Condition: stable 22:45 Discharge instructions given to patient, Instructed on discharge instructions, follow up and referral plans. medication usage, Demonstrated understanding of instructions, follow-up care, medications, Prescriptions given X 4. 22:46 Patient left the ED. tr5 Signatures: Dispatcher [employer] EDSridhar Bowers MD MD cha Smirch, Shelby, RN RN Lilly Douglass rg4 Elizabet Cutler mw3 Get Nelson RN RN tr5 Corrections: (The following items were deleted from the chart) 22:35 20:00 Reassessment: No changes from previously documented assessment. Patient and/or tr5 family updated on plan of care and expected duration. Pain level reassessed. Patient is alert, oriented x 3, equal unlabored respirations, skin warm/dry/pink. tr5
--- NOTE | 2019-03-29 22:14 | EDPHYS ---
Physician Documentation [facility] Name: Germania Bañuelos Age: 69 yrs Sex: Female : 1950 Arrival Date: 03/29/2019 Time: 18:12 Bed 30 Private MD: ED Physician Sridhar Wilcox HPI: 03/29 20:27 This 69 yrs old Female presents to ER via Ambulatory with complaints of margie Abnormal Lab Results. 20:27 The patient complains of pain to the top of head, left frontal area and right frontal margie area. The patient describes the headache as aching. Onset: The symptoms/episode began/occurred this morning. holder, dizzy, vertigo, htn. Associated signs and symptoms: The patient has no apparent associated signs or symptoms. Severity of symptoms: At its worst the pain was mild, in the emergency department the pain is unchanged. Headache History: Denies prior headaches. Historical: - Allergies: 18:23 Demerol; ss 18:23 dorvon; ss 18:23 Tamiflu; ss - PMHx: 18:23 COPD; Hyperlipidemia; Hypertension; shoulder pain; ss - Immunization history:: Adult Immunizations up to date. - Social history:: Smoking status: Patient uses tobacco products, smokes one pack cigarettes per day. - Ebola Screening: : Patient denies exposure to infectious person Patient denies travel to an Ebola-affected area in the 21 days before illness onset. - Family history:: not pertinent. ROS: 20:27 Constitutional: Negative for fever, chills, and weight loss, Eyes: Negative for injury, margie pain, redness, and discharge, ENT: Negative for injury, pain, and discharge, Neck: Negative for injury, pain, and swelling, Cardiovascular: Negative for chest pain, palpitations, and edema, Abdomen/GI: Negative for abdominal pain, nausea, vomiting, diarrhea, and constipation, Back: Negative for injury and pain, : Negative for injury, bleeding, discharge, and swelling, MS/Extremity: Negative for injury and deformity, Skin: Negative for injury, rash, and discoloration, Neuro: Negative for headache, weakness, numbness, tingling, and seizure, Psych: Negative for depression, anxiety, suicide ideation, homicidal ideation, and hallucinations, Allergy/Immunology: Negative for hives, rash, and allergies, Endocrine: Negative for neck swelling, polydipsia, polyuria, polyphagia, and marked weight changes, Hematologic/Lymphatic: Negative for swollen nodes, abnormal bleeding, and unusual bruising. 20:27 Respiratory: Positive for cough, shortness of breath, at rest. Exam: 20:27 Constitutional: This is a well developed, well nourished patient who is awake, alert, margie and in no acute distress. Head/Face: Normocephalic, atraumatic. Eyes: Pupils equal round and reactive to light, extra-ocular motions intact. Lids and lashes normal. Conjunctiva and sclera are non-icteric and not injected. Cornea within normal limits. Periorbital areas with no swelling, redness, or edema. ENT: Nares patent. No nasal discharge, no septal abnormalities noted. Tympanic membranes are normal and external auditory canals are clear. Oropharynx with no redness, swelling, or masses, exudates, or evidence of obstruction, uvula midline. Mucous membranes moist. Neck: Trachea midline, no thyromegaly or masses palpated, and no cervical lymphadenopathy. Supple, full range of motion without nuchal rigidity, or vertebral point tenderness. No Meningismus. Chest/axilla: Normal chest wall appearance and motion. Nontender with no deformity. No lesions are appreciated. Cardiovascular: Regular rate and rhythm with a normal S1 and S2. No gallops, murmurs, or rubs. Normal PMI, no JVD. No pulse deficits. Respiratory: Lungs have equal breath sounds bilaterally, clear to auscultation and percussion. No rales, rhonchi or wheezes noted. No increased work of breathing, no retractions or nasal flaring. Abdomen/GI: Soft, non-tender, with normal bowel sounds. No distension or tympany. No guarding or rebound. No evidence of tenderness throughout. Back: No spinal tenderness. No costovertebral tenderness. Full range of motion. Female : Normal external genitalia. Skin: Warm, dry with normal turgor. Normal color with no rashes, no lesions, and no evidence of cellulitis. MS/ Extremity: Pulses equal, no cyanosis. Neurovascular intact. Full, normal range of motion. Neuro: Awake and alert, GCS 15, oriented to person, place, time, and situation. Cranial nerves II-XII grossly intact. Motor strength 5/5 in all extremities. Sensory grossly intact. Cerebellar exam normal. Normal gait. Psych: Awake, alert, with orientation to person, place and time. Behavior, mood, and affect are within normal limits. Vital Signs: 18:18 BP 141 / 92; Pulse 112; Resp 17; Temp 97.4(TE); Pulse Ox 98% ; Weight 48.99 kg; Height ss 5 ft. 0 in. (152.40 cm); Pain 8/10; 19:00 BP 148 / 90; Pulse 100; Resp 20; Pulse Ox 100% on R/A; tr5 20:00 BP 146 / 92; Pulse 98; Resp 19; Pulse Ox 99% on R/A; tr5 21:00 BP 149 / 94; Pulse 99; Resp 19; Pulse Ox 97% on R/A; tr5 22:44 BP 138 / 66; Pulse 86; Resp 18; Pulse Ox 99% on R/A; tr5 18:18 Body Mass Index 21.09 (48.99 kg, 152.40 cm) ss MDM: 19:43 Patient medically screened. [facility] 20:29 Data reviewed: vital signs, nurses notes, lab test result(s), EKG, radiologic studies, [facility] CT scan, plain films. 03/29 20:26 Order name: Basic Metabolic Panel; Complete Time: 22:08 [facility] 03/29 20:26 Order name: CBC with Diff; Complete Time: 22:08 [facility] 03/29 20:26 Order name: LFT's; Complete Time: 22:08 [facility] 03/29 20:26 Order name: Magnesium; Complete Time: 22:08 [facility] 03/29 20:26 Order name: NT PRO-BNP; Complete Time: 22:08 [facility] 03/29 20:26 Order name: PT-INR; Complete Time: 22:08 [facility] 03/29 20:26 Order name: Troponin (emerg Dept Use Only); Complete Time: 22:08 [facility] 03/29 20:26 Order name: XRAY Chest (1 view) [facility] 03/29 20:26 Order name: Lipase; Complete Time: 22:08 [facility] 03/29 20:26 Order name: CT Head Brain wo Cont [facility] 03/29 22:14 Order name: Urine Dipstick--Ancillary (enter results) ar 03/29 20:26 Order name: EKG; Complete Time: 20:28 [facility] 09/12 20:26 Order name: Cardiac monitoring; Complete Time: 21:29 [facility] 03/29 20:26 Order name: EKG - Nurse/Tech; Complete Time: 21:29 [facility] 03/29 20:26 Order name: IV Saline Lock; Complete Time: : [facility] 03/29 20:26 Order name: Labs collected and sent; Complete Time: 20:31 [facility] 03/29 20:26 Order name: O2 Per Protocol; Complete Time: 20: [facility] 03/29 20:26 Order name: O2 Sat Monitoring; Complete Time: 20:32 [facility] 03/29 20:26 Order name: Urine Dipstick-Ancillary (obtain specimen); Complete Time: 22:15 [facility] Administered Medications: 21:11 Drug: NS 0.9% 1000 ml Route: IV; Rate: 125 ml/hr; Site: left antecubital; tr5 22:18 Follow up: IV Status: Completed infusion tr5 22:30 Drug: Meclizine 25 mg Route: PO; tr5 22:33 Follow up: Response: Medication administered at discharge. tr5 22:31 Drug: Lisinopril 5 mg Route: PO; tr5 22:33 Follow up: Response: Medication administered at discharge. tr5 22:32 Drug: Potassium Effervescent Tablet 25 mEq Route: PO; tr5 22:32 Follow up: Response: Medication administered at discharge. tr5 22:32 Follow up: Response: Medication administered at discharge. tr5 22:32 Drug: Lopressor (metoprolol TARTRATE) 50 mg Route: PO; tr5 22:33 Follow up: Response: Medication administered at discharge. tr5 Disposition: 03/29/19 22:13 Discharged to Home. Impression: Vertiginous syndromes in diseases classified elsewhere, unspecified ear, Essential (primary) hypertension, Chronic obstructive pulmonary disease, unspecified, Hypokalemia, Urinary tract infection, site not specified. - Condition is Stable. - Discharge Instructions: Chronic Bronchitis, Hypertension, Urinary Tract Infection, Adult, Urinary Tract Infection, Adult, Araa-lb-Hetr, Hypertension, Emcc-wn-[id number], How to Take Your Blood Pressure, [id number]-lx-[id number], Aspirin and Your Heart, Hypokalemia, Managing Your Hypertension. - Prescriptions for Toprol XL 25 mg Oral Tablet - take 1 tablet by ORAL route once daily; 20 tablet. Lisinopril 5 mg Oral Tablet - take 1 tablet by ORAL route once daily; 20 tablet. Bactrim DS 800- 160 mg Oral Tablet - take 1 tablet by ORAL route every 12 hours for 7 days; 14 tablet. Meclizine 25 mg Oral Tablet - take 1 tablet by ORAL route every 8 hours As needed; 30 tablet. - Medication Reconciliation Form, Thank You Letter, Antibiotic Education, Prescription Opioid Use form. - Follow up: Private Physician; When: 2 - 3 days; Reason: Recheck today's complaints, Continuance of care, Re-evaluation by your physician. Follow up: Bladimir Nelson MD; When: 2 - 3 days; Reason: Recheck today's complaints, Re-evaluation by your physician. - Problem is new. - Symptoms have improved. Signatures: Dispatcher [employer] Sridhar Zimmer MD MD cha Smirch, Shelby RN RN Get Hector RN RN tr5 Corrections: (The following items were deleted from the chart) 22:15 22:13 03/29/2019 22:13 Discharged to Home. Impression: Vertiginous syndromes in margie diseases classified elsewhere, unspecified ear; Essential (primary) hypertension; Chronic obstructive pulmonary disease, unspecified. Condition is Stable. Forms are Medication Reconciliation Form, Thank You Letter, Antibiotic Education, Prescription Opioid Use. Follow up: Private Physician; When: 2 - 3 days; Reason: Recheck today's complaints, Continuance of care, Re-evaluation by your physician. Follow up: Bladimir Nelson; When: 2 - 3 days; Reason: Recheck today's complaints, Re-evaluation by your physician. Problem is new. Symptoms have improved. [facility] 22:46 22:15 03/29/2019 22:13 Discharged to Home. Impression: Vertiginous syndromes in tr5 diseases classified elsewhere, unspecified ear; Essential (primary) hypertension; Chronic obstructive pulmonary disease, unspecified; Hypokalemia; Urinary tract infection, site not specified. Condition is Stable. Discharge Instructions: Chronic Bronchitis, Hypertension, Hypertension, Gxnn-rn-[id number], How to Take Your Blood Pressure, Epsv-fl-Jvtz, Aspirin and Your Heart, Managing Your Hypertension, Urinary Tract Infection, Adult, Urinary Tract Infection, Adult, Itgu-ii-Xgjh, Hypokalemia. Prescriptions for Toprol XL 25 mg Oral Tablet - take 1 tablet by ORAL route once daily; 20 tablet, Lisinopril 5 mg Oral Tablet - take 1 tablet by ORAL route once daily; 20 tablet, Bactrim DS 800-160 mg Oral Tablet - take 1 tablet by ORAL route every 12 hours for 7 days; 14 tablet, Meclizine 25 mg Oral Tablet - take 1 tablet by ORAL route every 8 hours As needed; 30 tablet. and Forms are Medication Reconciliation Form, Thank You Letter, Antibiotic Education, Prescription Opioid Use. Follow up: Private Physician; When: 2 - 3 days; Reason: Recheck today's complaints, Continuance of care, Re-evaluation by your physician. Follow up: Bladimir Nelson; When: 2 - 3 days; Reason: Recheck today's complaints, Re-evaluation by your physician. Problem is new. Symptoms have improved. margie
--- NOTE | 2019-03-29 22:18 | RAD REPORT ---
EXAM DESCRIPTION: Santos Single View03/29/2019 8:48 pm CLINICAL HISTORY: Cough COMPARISON: 2017 FINDINGS: Lungs are hyperaerated The lungs appear clear of acute infiltrate. The heart is normal size IMPRESSION: No acute abnormalities displayed
[2019-03-29] MEDS ORDERED: METOPROLOL TAR 50 MG TAB ONE (22:22)
[2019-03-29] MEDS ORDERED: POTASSIUM 25 MEQ EFFERV TAB ONE (22:23)
[2019-03-29] MEDS ORDERED: LISINOPRIL 5 MG TAB ONE (22:23)
[2019-03-29] MEDS ORDERED: MECLIZINE HCL 12.5 MG TAB ONE (22:23)
[2019-03-29 22:27] LABS: Urine Blood NEGATIVE (NEG); Urine Glucose NEGATIVE (NEG); Urine Protein NEGATIVE (NEG)
[2019-03-30 03:54] VITALS: TEMP 97.4
[2019-03-30 04:00] VITALS: BP 138/66; O2SAT 99
--- NOTE | 2019-03-30 07:39 | EKG ---
Test Date: 2019-03-29 Test Time: 20:37:59 Tool Designer: AARONT MEASUREMENT RESULTS: Intervals: Rate: 99 MN: 164 QRSD: 84 QT: 372 QTc: 477 [place]: P: 66 MN: 164 QRS: -85 T: 51 INTERPRETIVE STATEMENTS: Normal sinus rhythm Possible Left atrial enlargement Left anterior fascicular block Abnormal ECG Compared to ECG 02/15/2019 16:09:14 Incomplete right bundle-branch block no longer present Electronically Signed On 03-30-19 07:37:48 CDT by Bladimir Nelson
--- NOTE | 2019-03-30 11:54 | RAD REPORT ---
EXAM DESCRIPTION: CT - Head Brain Wo Cont - 03/30/2019 2:08 am CLINICAL HISTORY: 69 years Female Dizziness;Headache COMPARISON: None TECHNIQUE: Images were obtained in axial, sagittal, and coronal planes. This exam was performed according to our departmental dose-optimization program which includes use of Automated Exposure Control, adjustment of the mA and/or kV according to patient size and/or use of i terative reconstruction technique. FINDINGS: Ventricular system appears normal. No abnormal areas of increased or decreased attenuation are seen involving the brain parenchyma. No e xtra-axial fluid collections noted. No evidence for skull fracture. Sclerotic changes mastoid air cells bilaterally right greater than le ft. Unremarkable paranasal sinuses. IMPRESSION: No acute intracranial abnormality. No evidence for hemorrhage, mass lesion, or large acu te infarction. Electronically signed by: Sadie Lopez MD 03/29/2019 9:03 PM CDT Due to temporary technical issues with the PACS/Fluency reporting system, reports are being signed by the in house radiologist as a courtesy to ensure prompt reporting. The interpreting radiologist is f ully responsible for the content of the report.
== END 2019-03-29 22:46 | disposition home or self-care (01) ==
LOC: ER 18:09
DX: H82.9 Vertiginous syndromes in diseases classified elsewhere, unspecified ear (principal); I10 Essential (primary) hypertension; J44.9 Chronic obstructive pulmonary disease, unspecified; N39.0 Urinary tract infection, site not specified; E87.6 Hypokalemia; F17.210 Nicotine dependence, cigarettes, uncomplicated; Z88.6 Allergy status to analgesic agent
CPT/HCPCS: 93005; 85025; 80048; 36415; 83735; 85610; 80076; 81003; 84484; 83690; 83880; 70450; 71045; 96360; 99284; J7030

== ENCOUNTER 2019-08-14 17:00 | Emergency (ER) | payer OTHER ==
--- OUTSIDE RECORDS SUMMARY | 2019-08-14 17:05 | XMS REPORT ---
:1950 [facility] Address [address] [place] [address] [address] [place] [address] Care Team Providers Name Role Phone JORGE [...] Lymph Abs (test code=ALYMPH) 3.4 K/cumm 0.5-4.6 [place] Abs (test code=AMONO) 0.7 K/cumm 0.0-1.2 Eos Abs (test code=AEOS) 0.10 K/cumm 0.00-0.74 Baso Abs (test code=ABASO) 0.1 K/cumm 0.00-0.21 Lipid [id number] 23:22:00 Test Item Value Reference Range Comments Cholesterol (test 136 mg/dL 0-200 code=CHOL) Triglycerides (test 100 mg/dL 9-200 code=TRIG) HDL (test code=HDL) 53 mg/dL 50-60 Chol/HDL (test 2.6 Ratio 0.0-4.4 code=CHOLPHDL) LDL, Calculated (test 63 mg/dL 0-130 (NOTE)RISK OF HEART code=LDLC) DISEASEPublished by [place] Heart AssociationAnalyte Optimal Boderline Increased RiskCHOL <200 200-239 >240TRIG <150 150-199 >200HDL Male: >60 <40HDL Female: >60 <50LDL <100 130-159 >160LDL NEAR OPTIMAL IS 100-129 VLDL (test code=VLDL) 20 mg/dL 5-40 LDL/HDL (test code=LDLPHDL) 1 Comprehensive Metabolic [id number] 23:22:00 Test Item Value Reference Range Comments [...] race is not provided, and the patient isAfrican-Bruneian, multiply by 1.212. If sex is not [...]
--- OUTSIDE RECORDS SUMMARY | 2019-08-14 17:05 | XMS REPORT ---
:1950 Author Organization [employer] Care Team Providers Name Role Phone AbdallaDenny Provider Role Unavailable Allergies, Adverse Reactions, Alerts Substance Reaction Event Type Tamiflu Info Not Available Drug Allergy Demerol Info Not Available Drug Allergy Darvon Info Not Available Drug Allergy Problems Problem Type Condition Code Onset Dates Condition Status Assessment Age-related osteoporosis without M81.0 Active current pathological fracture Problem Other chronic pain G89.29 Active Problem Age-related osteoporosis without M81.0 Active current pathological fracture Problem Coronary artery disease involving I25.10 Active iroquois coronary artery of iroquois heart without angina pectoris Problem Tobacco use disorder F17.200 Active Problem Low back pain M54.5 Active Problem Mixed hyperlipidemia E78.2 Active Problem Hypertension I10 Active Problem COPD (chronic obstructive pulmonary J44.9 Active disease) Assessment Other chronic pain G89.29 Active Assessment Low back pain M54.5 Active Assessment Mixed hyperlipidemia E78.2 Active Assessment Tobacco use disorder F17.200 Active Assessment COPD (chronic obstructive pulmonary J44.9 Active disease) Assessment Coronary artery disease involving I25.10 Active iroquois coronary artery of iroquois heart without angina pectoris Assessment Hypertension I10 Active Medications Medication Code Code Instructions Start End Status Dosage System Date Date Xopenex [facility] [id number] 1.25 MG/3ML Jun 08, Active 3 ml Inhalation q 2018 4-6 hrs prn Tramadol HCl [facility] 22982813058 50 MG Orally Aug 28, Active 1 tablet as BID PRN SEVERE 2020 needed PAIN Crestor [facility] 98463840979 40 MG Orally Active 1 tablet Once a day Aspir-81 [facility] 92656514633 81 MG Orally Active 1 tablet Once a day Meloxicam [facility] 80249940377 7.5 MG Orally Active 1 tablet Once a day Gabapentin [facility] 34458962906 300 MG Orally Active 1 capsule Twice a day Lisinopril [facility] 70008564266 10 MG Orally Active 1 tablet Once a day Metoprolol [facility] 05589610832 50 MG Orally Jun 08, Active 1 tablet Tartrate Every day 2018 with food Alendronate [facility] 84056477642 70 MG Orally Aug 13, May 09, Active 1 tablet 30 Sodium Once a weekly 2019 2019 minutes before the first food, beverage or medicine of the day with plain water Results No Known Results Summary Purpose [employer] Submission
[2019-08-14 19:08] LABS: Absolute Lymphocytes (CBC) 1.5 K/uL (0.7-4.9); Basophils % 0.3 % (0-1.3); Hematocrit 45.7 % (36.0-45.0); Lymphocytes % 14.4 % (15.3-44.8); MPV 10.6 fL (7.6-11.3); RBC Red Blood Cell Count 4.91 M/uL (3.86-4.86)
[2019-08-14 19:24] LABS: Albumin 3.9 g/dL (3.4-5.0); Bilirubin Direct 0.2 mg/dL (0-0.2); Bilirubin Total 0.8 mg/dL (0.2-1.0); Potassium 4.3 mmol/L (3.5-5.1); Protein, Total 7.6 g/dL (6.4-8.2)
[2019-08-14] MEDS ORDERED: ONDANSETRON 4 MG/2 ML VIAL ONE (19:48)
[2019-08-14] MEDS ORDERED: NA CHLORIDE 0.9% 1,000 ML ONE (19:48)
[2019-08-14 20:32] LABS: Urine Bacteria 20-50 /HPF (<20); Urine Culture Reflex Order REFLEXED; Urine Mucus 1+ /HPF (NONE SEEN)
[2019-08-14 20:33] LABS: Urine Blood TRACE (NEG); Urine Glucose NEGATIVE (NEG); Urine Protein NEGATIVE (NEG)
--- NOTE | 2019-08-14 21:36 | ER ---
Nurse's Notes [facility] Name: Germania Bañuelos Age: 69 yrs Sex: Female : 1950 Arrival Date: 08/14/2019 Time: 17:02 Bed 18 Private MD: Diagnosis: Diarrhea, unspecified Presentation: 08/14 17:40 Presenting complaint: Patient states: "Diarrhea since 0600 this morning. I have been ca1 going every 30 minutes. And I am very nauseated. Reports chills, denies fever. Cough and congestion x 2 weeks. Transition of care: patient was not received from another setting of care. Onset of symptoms was August 14, 2019. Risk Assessment: Do you want to hurt yourself or someone else? Patient reports no desire to harm self or others. Initial Sepsis Screen: Does the patient meet any 2 criteria? No. Patient's initial sepsis screen is negative. Does the patient have a suspected source of infection? No. Patient's initial sepsis screen is negative. Care prior to arrival: None. 17:40 Method Of Arrival: Ambulatory ca1 17:40 Acuity: MIGUEL 3 ca1 Historical: - Allergies: 17:43 Demerol; ca1 17:43 dorvon; ca1 17:43 Tamiflu; ca1 - PMHx: 17:43 COPD; Hyperlipidemia; Hypertension; shoulder pain; ca1 - PSHx: 17:43 Stent; ca1 - Immunization history:: Adult Immunizations up to date, Pneumococcal vaccine is not up to date, Flu vaccine is not up to date. - Coronavirus screen:: The patient has NOT traveled to [place], [place], or [place] in the past 14 days. The patient has NOT had contact with known/suspected case of Coronavirus?. - Social history:: Smoking status: Patient reports the use of cigarette tobacco products, smokes one-half pack cigarettes per day. - Ebola Screening: : Patient negative for fever greater than or equal to 101.5 degrees Fahrenheit, and additional compatible Ebola Virus Disease symptoms Patient denies exposure to infectious person Patient denies travel to an Ebola-affected area in the 21 days before illness onset No symptoms or risks identified at this time. Screenin:00 Abuse screen: Denies threats or abuse. Nutritional screening: No deficits noted. jb4 Tuberculosis screening: No symptoms or risk factors identified. Fall Risk None identified. Assessment: 19:00 General: Appears in no apparent distress. uncomfortable, Behavior is calm, cooperative, jb4 appropriate for age. Pain: Denies pain. Neuro: Level of Consciousness is awake, alert, obeys commands, Oriented to person, place, time, situation. Cardiovascular: Patient's skin is warm and dry. Respiratory: Airway is patent Respiratory effort is even, unlabored, Respiratory pattern is regular, symmetrical. GI: Reports diarrhea, nausea. : No signs and/or symptoms were reported regarding the genitourinary system. EENT: No signs and/or symptoms were reported regarding the EENT system. Derm: Skin is intact, Skin is pink, warm \\T\\ dry. Musculoskeletal: Circulation, motion, and sensation intact. Range of motion: intact in all extremities. 19:58 Reassessment: Patient appears in no apparent distress at this time. Patient and/or jb4 family updated on plan of care and expected duration. Pain level reassessed. Patient is alert, oriented x 3, equal unlabored respirations, skin warm/dry/pink. 20:57 Reassessment: Patient appears in no apparent distress at this time. Patient and/or jb4 family updated on plan of care and expected duration. Pain level reassessed. Patient is alert, oriented x 3, equal unlabored respirations, skin warm/dry/pink. Patient states feeling better. 21:51 Reassessment: Patient appears in no apparent distress at this time. Patient and/or jb4 family updated on plan of care and expected duration. Pain level reassessed. Patient is alert, oriented x 3, equal unlabored respirations, skin warm/dry/pink. Vital Signs: 17:43 BP 168 / 83; Pulse 93; Resp 19 S; Temp 98(O); Pulse Ox 99% on R/A; Weight 50.35 kg (R); ca1 Height 4 ft. 11 in. (149.86 cm) (R); 19:45 BP 182 / 79; Pulse 75; Resp 16; Pulse Ox 97% on R/A; jb4 20:45 BP 156 / 70; Pulse 90; Resp 16; Pulse Ox 96% on R/A; jb4 21:45 BP 141 / 71; Pulse 81; Resp 16; Pulse Ox 96% on R/A; jb4 17:43 Body Mass Index 22.42 (50.35 kg, 149.86 cm) ca1 ED Course: 17:02 Patient arrived in ED. as 17:41 Triage completed. ca1 17:43 Arm band placed on right wrist. ca1 18:19 Kendrick Fabian FNP-C [facility]. la1 18:19 Sridhar Wilcox MD is Attending Physician. la1 18:50 Patient has correct armband on for positive identification. Bed in low position. Call sv light in reach. Door closed. Head of bed elevated. 18:50 Missed attempt(s): 20 gauge in left antecubital area. Bleeding controlled, band aid sv applied, catheter tip intact. 18:55 Inserted saline lock: 20 gauge in left antecubital area, using aseptic technique. Blood sv collected. Flushed left antecubital with 5 ml normal saline. 18:57 Sheree Nguyen, DEBRA is Primary Nurse. sv 19:00 Report given to Neftali RICHARDSON. sv 19:33 Primary Nurse role handed off by Sheree Nguyen RN sv 19:41 Darrel Andino, RN is Primary Nurse. jb4 21:53 No provider procedures requiring assistance completed. IV discontinued, intact, jb4 bleeding controlled, No redness/swelling at site. Pressure dressing applied. Administered Medications: 19:55 Drug: NS 0.9% 1000 ml Route: IV; Rate: 1000 ml; Site: left antecubital; jb4 21:00 Follow up: Response: No adverse reaction; IV Status: Completed infusion; IV Intake: jb4 1000ml 19:55 Drug: Zofran 4 mg Route: IVP; Site: left antecubital; jb4 20:25 Follow up: Response: No adverse reaction; Nausea is decreased jb4 Intake: 21:00 IV: 1000ml; Total: 1000ml. jb4 Outcome: 21:36 Discharge ordered by . la1 21:53 Discharged to home ambulatory. jb4 21:53 Condition: stable 21:53 Discharge instructions given to patient, Instructed on discharge instructions, follow up and referral plans. Demonstrated understanding of instructions, follow-up care. 21:54 Patient left the ED. jb4 Addendum: 08/19/2019 15:38 Addendum: Culture Results: Positive urine culture. Patient was not prescribed s s antibiotics at discharge. Report given to JOSE ALFREDO for further evaluation and then to liquor establishment manager for follow up with patient. Phone call Attempt #1 spoke with patient and called in Bactrim DS 1 tab PO BID x 10 days # 20 as instructed by Ish Reyes NP. Pt verbalizes understanding. Signatures: Sheree Nguyen, RN RN Connie Camacho Shelby, RN RN ss Kendrick Fabian, WEBSITE DEVELOPER-C WEBSITE DEVELOPER-Cla1 Darrel Andino, RN RN jb4 Stephania Mcknight RN RN ca1
--- NOTE | 2019-08-14 21:36 | EDPHYS ---
Physician Documentation [facility] Name: Germania Bañuelos Age: 69 yrs Sex: Female : 1950 Arrival Date: 08/14/2019 Time: 17:02 Bed 18 Private MD: ED Physician Sridhar Wilcox HPI: 08/14 19:06 This 69 yrs old Female presents to ER via Ambulatory with complaints of la1 Diarrhea, Nausea. 19:07 The patient presents to the emergency department with nausea, diarrhea, that is la1 continuous. Onset: The symptoms/episode began/occurred this morning. Possible causes: sick contacts, by family. The symptoms are aggravated by nothing. The symptoms are alleviated by nothing. Associated signs and symptoms: Pertinent negatives: fever, GI bleeding, hematuria, vaginal discharge. Severity of symptoms: At their worst the symptoms were moderate. The patient has not experienced similar symptoms in the past. Historical: - Allergies: 17:43 Demerol; ca1 17:43 dorvon; ca1 17:43 Tamiflu; ca1 - PMHx: 17:43 COPD; Hyperlipidemia; Hypertension; shoulder pain; ca1 - PSHx: 17:43 Stent; ca1 - Immunization history:: Adult Immunizations up to date, Pneumococcal vaccine is not up to date, Flu vaccine is not up to date. - Coronavirus screen:: The patient has NOT traveled to [place], [place], or [place] in the past 14 days. The patient has NOT had contact with known/suspected case of Coronavirus?. - Social history:: Smoking status: Patient reports the use of cigarette tobacco products, smokes one-half pack cigarettes per day. - Ebola Screening: : Patient negative for fever greater than or equal to 101.5 degrees Fahrenheit, and additional compatible Ebola Virus Disease symptoms Patient denies exposure to infectious person Patient denies travel to an Ebola-affected area in the 21 days before illness onset No symptoms or risks identified at this time. ROS: 19:08 Constitutional: Negative for fever, chills, and weight loss, Eyes: Negative for injury, la1 pain, redness, and discharge, ENT: Negative for injury, pain, and discharge, Neck: Negative for injury, pain, and swelling, Cardiovascular: Negative for chest pain, palpitations, and edema, Respiratory: Negative for shortness of breath, cough, wheezing, and pleuritic chest pain. 19:08 Back: Negative for injury and pain, : Negative for injury, bleeding, discharge, and swelling, MS/Extremity: Negative for injury and deformity, Skin: Negative for injury, rash, and discoloration, Neuro: Negative for headache, weakness, numbness, tingling, and seizure, Endocrine: Negative for neck swelling, polydipsia, polyuria, polyphagia, and marked weight changes, Hematologic/Lymphatic: Negative for swollen nodes, abnormal bleeding, and unusual bruising. 19:08 Abdomen/GI: Positive for nausea, diarrhea. Exam: 19:08 Constitutional: This is a well developed, well nourished patient who is awake, alert, la1 and in no acute distress. Head/Face: Normocephalic, atraumatic. Eyes: Pupils equal round and reactive to light, extra-ocular motions intact. Lids and lashes normal. Conjunctiva and sclera are non-icteric and not injected. Cornea within normal limits. Periorbital areas with no swelling, redness, or edema. ENT: Mucous membranes moist. Neck: Trachea midline, No Meningismus. Chest/axilla: Normal chest wall appearance and motion. Nontender with no deformity. No lesions are appreciated. Cardiovascular: Regular rate and rhythm with a normal S1 and S2. No gallops, murmurs, or rubs. Normal PMI, no JVD. No pulse deficits. Respiratory: Lungs have equal breath sounds bilaterally, clear to auscultation Abdomen/GI: Soft, non-tender, with normal bowel sounds. No distension or tympany. No guarding or rebound. No evidence of tenderness throughout. Back: No spinal tenderness. No costovertebral tenderness. Full range of motion. Skin: Warm, dry with normal turgor. Normal color with no rashes, no lesions, and no evidence of cellulitis. MS/ Extremity: Pulses equal, no cyanosis. Neurovascular intact. Full, normal range of motion. Neuro: Awake and alert, GCS 15, oriented to person, place, time, and situation. Normal gait. Vital Signs: 17:43 BP 168 / 83; Pulse 93; Resp 19 S; Temp 98(O); Pulse Ox 99% on R/A; Weight 50.35 kg (R); ca1 Height 4 ft. 11 in. (149.86 cm) (R); 19:45 BP 182 / 79; Pulse 75; Resp 16; Pulse Ox 97% on R/A; jb4 20:45 BP 156 / 70; Pulse 90; Resp 16; Pulse Ox 96% on R/A; jb4 21:45 BP 141 / 71; Pulse 81; Resp 16; Pulse Ox 96% on R/A; jb4 17:43 Body Mass Index 22.42 (50.35 kg, 149.86 cm) ca1 MDM: 18:19 Patient medically screened. la1 21:34 Data reviewed: vital signs, nurses notes, lab test result(s), I have discussed the la1 patient's presentation/case with the attending Emergency Department Physician; and as a result, I will discharge patient. Data interpreted: Pulse oximetry: on room air is 96 %. Interpretation: normal. Counseling: I had a detailed discussion with the patient and/or guardian regarding: the historical points, exam findings, and any diagnostic results supporting the discharge/admit diagnosis, lab results, the need for outpatient follow up, a family practitioner, to return to the emergency department if symptoms worsen or persist or if there are any questions or concerns that arise at home. Response to treatment: patient is well hydrated. and as a result, I will discharge patient. Special discussion: Based on the patient's Hx, exam, and Dx evaluation, there is no indication for emergent surgery or inpatient Tx. It is understood by the patient/guardian that if the Sx's persist or worsen they need to return immediately for re-evaluation. I discussed with the patient/guardian in detail that at this point there is no indication for admission to the hospital. It is understood, however, that if the symptoms persist or worsen the patient needs to return immediately for re-evaluation. Based on the history and exam findings, there is no indication for further emergent testing or inpatient evaluation. I discussed with the patient/guardian the need to see the primary care provider for further evaluation of the symptoms. 08/14 18:38 Order name: Basic Metabolic Panel; Complete Time: 20:06 08/14 18:38 Order name: CBC with Diff; Complete Time: 20:08/14 18:38 Order name: Hepatic Function; Complete Time: 20:06 08/14 18:38 Order name: Lipase; Complete Time: 20:08/14 18:38 Order name: IV Saline Lock; Complete Time: 18:57 [facility] 08/14 20:07 Order name: Urine Microscopic Only; Complete Time: 20:39 [facility] 08/14 20:11 Order name: Urine Dipstick--Ancillary (enter results); Complete Time: 20:39 [facility] 08/14 20:34 Order name: Urine Culture [facility] 08/14 18:38 Order name: Labs collected and sent; Complete Time: 18:58 [facility] 08/14 18:38 Order name: Urine Dipstick-Ancillary (obtain specimen); Complete Time: 20:16 [facility] Administered Medications: 19:55 Drug: NS 0.9% 1000 ml Route: IV; Rate: 1000 ml; Site: left antecubital; jb4 21:00 Follow up: Response: No adverse reaction; IV Status: Completed infusion; IV Intake: jb4 1000ml 19:55 Drug: Zofran 4 mg Route: IVP; Site: left antecubital; jb4 20:25 Follow up: Response: No adverse reaction; Nausea is decreased jb4 Disposition: 08/15 07:25 Co-signature as Attending Physician, Sridhar Wilcox MD I agree with the assessment and margie plan of care. Disposition: 08/14/19 21:36 Discharged to Home. Impression: Diarrhea, unspecified. - Condition is Stable. - Discharge Instructions: Food Choices to Help Relieve Diarrhea, Adult, Diarrhea, Adult, Rehydration, Adult. - Medication Reconciliation Form, Thank You Letter form. - Follow up: Private Physician; When: 2 - 3 days; Reason: Recheck today's complaints, Re-evaluation by your physician. Follow up: Emergency Department; When: As needed; Reason: Worsening of condition. - Problem is new. - Symptoms have improved. Signatures: Dispatcher [employer] [facility] Sridhar Wilcox MD MD cha Attema, Lee, GEOTHERMAL INSTALLER-C GEOTHERMAL INSTALLER-Cla1 Darrel Andino, DEBRA RICHARDSON jb4 Stephania Mcknight RN RN ca1 Corrections: (The following items were deleted from the chart) 08/14 21:54 21:36 08/14/2019 21:36 Discharged to Home. Impression: Diarrhea, unspecified. Condition jb4 is Stable. Forms are Medication Reconciliation Form, Thank You Letter, Antibiotic Education, Prescription Opioid Use. Follow up: Private Physician; When: 2 - 3 days; Reason: Recheck today's complaints, Re-evaluation by your physician. Follow up: Emergency Department; When: As needed; Reason: Worsening of condition. Problem is new. Symptoms have improved. la1
[2019-08-14 22:24] VITALS: TEMP 98
[2019-08-14 22:26] VITALS: O2SAT 96
[2019-08-14 22:27] VITALS: BP 141/71
== END 2019-08-14 21:54 | disposition home or self-care (01) ==
LOC: ER 17:00
DX: R19.7 Diarrhea, unspecified (principal); Z88.6 Allergy status to analgesic agent; Z95.5 Presence of coronary angioplasty implant and graft
CPT/HCPCS: 96361; 87088; 85025; 87086; 80048; 36415; 80076; 87077; 87186; 83690; 96374; 99284; J7030; J2405; 81003; 81015

== ENCOUNTER 2020-04-17 10:00 | Emergency (ER) | payer OTHER ==
[2020-04-17 11:41] LABS: Absolute Lymphocytes (CBC) 2.7 K/uL (0.7-4.9); Hematocrit 42.3 % (36.0-45.0); Lymphocytes % 25.9 % (15.3-44.8); MPV 11.9 fL (7.6-11.3); RBC Red Blood Cell Count 4.53 M/uL (3.86-4.86)
[2020-04-17 11:42] LABS: Protime INR 0.98
[2020-04-17 12:00] LABS: ALT/SGPT 16 U/L (12-78); AST/SGOT 14 U/L (15-37); Albumin 3.8 g/dL (3.4-5.0); Alkaline Phosphatase 106 U/L (45-117); BUN Blood Urea Nitrogen 12 mg/dL (7-18); Bicarbonate 28 mmol/L (21-32); Bilirubin Direct 0.2 mg/dL (0-0.2); Bilirubin Total 0.8 mg/dL (0.2-1.0); Glucose Level 86 mg/dL (74-106); Magnesium 2.3 mg/dL (1.8-2.4); NT PRO-BNP 349 pg/mL (<125); Potassium 3.8 mmol/L (3.5-5.1); Protein, Total 7.2 g/dL (6.4-8.2); Sodium Level 141 mmol/L (136-145); Troponin (Emerg Dept Use Only) < 0.02 ng/mL (0.0-0.045)
--- NOTE | 2020-04-17 13:23 | EDPHYS ---
Physician Documentation [facility] Name: Germania Bañuelos Age: 70 yrs Sex: Female : 1950 Arrival Date: 04/17/2020 Time: 10:05 Bed 15 Private MD: Rm Counts Include 234 Beds At [facility] ED Physician Gil Grissom HPI: 04/17 10:56 This 70 yrs old Female presents to ER via Ambulatory with complaints of snw Dizziness, High Blood Pressure, Nausea. 10:56 The patient presents with lightheadedness. Onset: The symptoms/episode began/occurred snw gradually, 1 day(s) ago, and became persistent. Context: occurred at home, occurred while the patient was getting up from bed, just prior to the episode the patient experienced no apparent symptoms. Associated signs and symptoms: Pertinent positives: nausea, higher blood pressure than normal. Severity of symptoms: At their worst the symptoms were mild moderate. Patient's baseline: Neuro: alert and fully oriented, Motor: no deficits, Ambulation: walks without assistance, Speech: normal. It is unknown whether or not the patient has had similar symptoms in the past. beings treated for COPD, Chronic pain, and osteoporosis. Gets labs q 3 months, felt dizzy since 6am yest. Dr. Abdalla sent to ED. Historical: - Allergies: 10:29 Demerol; bp 10:29 dorvon; bp 10:29 Tamiflu; bp - Home Meds: 10:29 aspirin 81 mg Oral chew 1 tab once daily [Active]; Crestor Oral [Active]; gabapentin bp Oral [Active]; meloxicam Oral [Active]; metoprolol tartrate 25 mg Oral tab 1 tab 2 times per day [Active]; Tramadol Oral [Active]; - PMHx: 10:29 COPD; Hyperlipidemia; Hypertension; shoulder pain; bp - Immunization history:: Adult Immunizations up to date. - Social history:: Smoking status: Patient denies any tobacco usage or history of. ROS: 10:54 Constitutional: Negative for fever, chills, and weight loss, Eyes: Negative for injury, snw pain, redness, and discharge, ENT: Negative for injury, pain, and discharge, Neck: Negative for injury, pain, and swelling, Cardiovascular: Negative for chest pain, palpitations, and edema, Respiratory: Negative for shortness of breath, wheezing, and pleuritic chest pain, + cough x 3 weeks Abdomen/GI: Negative for abdominal pain, nausea, vomiting, diarrhea, and constipation, Back: Negative for injury and pain, : Negative for injury, bleeding, discharge, and swelling, MS/Extremity: Negative for injury and deformity, Skin: Negative for injury, rash, and discoloration, Psych: Negative for depression, anxiety, suicide ideation, homicidal ideation, and hallucinations. 10:54 Neuro: Positive for dizziness. Exam: 10:52 Constitutional: This is a well developed, well nourished patient who is awake, alert, snw and in no acute distress. Head/Face: Normocephalic, atraumatic. Eyes: Pupils equal round and reactive to light, extra-ocular motions intact. Lids and lashes normal. Conjunctiva and sclera are non-icteric and not injected. Cornea within normal limits. Periorbital areas with no swelling, redness, or edema. ENT: Nares patent. No nasal discharge, no septal abnormalities noted. Tympanic membranes are normal and external auditory canals are clear. Oropharynx with no redness, swelling, or masses, exudates, or evidence of obstruction, uvula midline. Mucous membranes moist. Neck: Trachea midline, no thyromegaly or masses palpated, and no cervical lymphadenopathy. Supple, full range of motion without nuchal rigidity, or vertebral point tenderness. No Meningismus. Chest/axilla: Normal chest wall appearance and motion. Nontender with no deformity. No lesions are appreciated. Cardiovascular: Regular rate and rhythm with a normal S1 and S2. No gallops, murmurs, or rubs. Normal PMI, no JVD. No pulse deficits. Respiratory: Lungs have equal breath sounds bilaterally, clear to auscultation and percussion. No rales, rhonchi or wheezes noted. No increased work of breathing, no retractions or nasal flaring. Abdomen/GI: Soft, non-tender, with normal bowel sounds. No distension or tympany. No guarding or rebound. No evidence of tenderness throughout. Back: No spinal tenderness. No costovertebral tenderness. Full range of motion. Skin: Warm, dry with normal turgor. Normal color with no rashes, no lesions, and no evidence of cellulitis. MS/ Extremity: Pulses equal, no cyanosis. Neurovascular intact. Full, normal range of motion. Neuro: Awake and alert, GCS 15, oriented to person, place, time, and situation. Cranial nerves II-XII grossly intact. Motor strength 5/5 in all extremities. Sensory grossly intact. Cerebellar exam normal. Normal gait. Psych: Awake, alert, with orientation to person, place and time. Behavior, mood, and affect are within normal limits. Vital Signs: 10:25 BP 185 / 72; Pulse 66; Resp 16; Temp 97.5; Pulse Ox 100% ; bp 11:34 BP 149 / 63; Pulse 63; Resp 16; Pulse Ox 97% ; bp 12:46 BP 137 / 70; Pulse 62; Resp 16; Pulse Ox 96% ; bp 13:47 BP 153 / 70; Pulse 63; Resp 16; Pulse Ox 96% ; bp MDM: 10:52 Patient medically screened. snw 12:14 Data reviewed: vital signs, nurses notes. Data interpreted: Pulse oximetry: on room air snw is 97 %. Interpretation: normal. Transition of care: After a detail discussion of the patient's case, care is transferred to Diego BUTTS. 13:20 Counseling: I had a detailed discussion with the patient and/or guardian regarding: the jr8 historical points, exam findings, and any diagnostic results supporting the discharge/admit diagnosis, lab results, radiology results, the need for outpatient follow up, a family practitioner, to return to the emergency department if symptoms worsen or persist or if there are any questions or concerns that arise at home. Response to treatment: the patient's symptoms have mildly improved after treatment. ED course: Patient overall feeling better. Still slightly dizzy but improving. BP decreasing naturally. CT negative. Rest of exam and blood work along with ECG stable and without acute findings. Will d/c home to f/u with PCP . 04/17 10:36 Order name: Basic Metabolic Panel; Complete Time: 12:01 snw 04/17 10:36 Order name: CBC with Diff; Complete Time: 11:47 snw 04/17 10:36 Order name: LFT's; Complete Time: 12:01 snw 04/17 10:36 Order name: Magnesium; Complete Time: 12:01 snw 04/17 10:36 Order name: NT PRO-BNP; Complete Time: 12:01 snw 04/17 10:36 Order name: PT-INR; Complete Time: 11:47 snw 04/17 10:36 Order name: Troponin (emerg Dept Use Only); Complete Time: 12:01 snw 04/17 10:36 Order name: XRAY Chest (1 view) snw 04/17 10:36 Order name: EKG; Complete Time: 10:37 snw 04/17 10:36 Order name: Cardiac monitoring; Complete Time: 10:49 snw 04/17 10:36 Order name: EKG - Nurse/Tech; Complete Time: 10:46 snw 04/17 10:36 Order name: IV Saline Lock; Complete Time: 11:35 snw 04/17 10:36 Order name: Labs collected and sent; Complete Time: 11:35 snw 04/17 12:56 Order name: CT Head Brain wo Cont ph 04/17 10:36 Order name: O2 Per Protocol; Complete Time: 10:49 snw 04/17 10:36 Order name: O2 Sat Monitoring; Complete Time: 10:49 snw EC:52 Rate is 64 beats/min. Rhythm is regular. QRS [place] is Normal. T waves are Inverted in snw lead V2. No ST changes noted. Clinical impression: NSR w/ Non-specific ST/T Changes and low voltage. Administered Medications: No medications were administered Disposition: 04/17/20 13:22 Discharged to Home. Impression: Hypertensive Urgency . - Condition is Stable. - Discharge Instructions: Hypertension. - Medication Reconciliation Form, Thank You Letter, Antibiotic Education, Prescription Opioid Use form. - Follow up: Denny Abdalla DO; When: 2 - 3 days; Reason: Recheck today's complaints, Continuance of care, Re-evaluation by your physician. - Problem is new. - Symptoms have improved. Signatures: Dispatcher [employer] EDMS Anisa Flores, KHALIDA-C ASSEMBLY AND PACKING SUPERVISOR-Csnw Diego Desai PA PA jr8 Peltier, Brian, RN RN bp Corrections: (The following items were deleted from the chart) 13:49 13:22 04/17/2020 13:22 Discharged to Home. Impression: Hypertensive Urgency . Condition bp is Stable. Forms are Medication Reconciliation Form, Thank You Letter, Antibiotic Education, Prescription Opioid Use. Follow up: Denny Abdalla; When: 2 - 3 days; Reason: Recheck today's complaints, Continuance of care, Re-evaluation by your physician. Problem is new. Symptoms have improved. jr8
--- NOTE | 2020-04-17 13:23 | ER ---
Nurse's Notes [facility] Name: Germania Bañuelos Age: 70 yrs Sex: Female : 1950 Arrival Date: 04/17/2020 Time: 10:05 Bed 15 Private MD: Denny Abdalla Diagnosis: Hypertensive Urgency Presentation: 04/17 10:20 Chief complaint: Patient states: BP 212/84 at home, dizziness and nausea reported. dm5 10:20 Acuity: MIGUEL 2 dm5 10:30 Coronavirus screen: At this time, the client does not indicate any symptoms associated bp with coronavirus-19. Ebola Screen: No symptoms or risks identified at this time. Initial Sepsis Screen: Does the patient meet any 2 criteria? No. Patient's initial sepsis screen is negative. Does the patient have a suspected source of infection? No. Patient's initial sepsis screen is negative. Risk Assessment: Do you want to hurt yourself or someone else? Patient reports no desire to harm self or others. Onset of symptoms was April 17, 2020. 10:30 Method Of Arrival: Ambulatory bp Triage Assessment: 10:24 General: Appears in no apparent distress. comfortable, Behavior is cooperative, bp appropriate for age, anxious. Pain: Denies pain. EENT: No deficits noted. Neuro: Reports dizziness. Cardiovascular: No deficits noted. Respiratory: No deficits noted. GI: Reports nausea. : No signs and/or symptoms were reported regarding the genitourinary system. Derm: No deficits noted. Musculoskeletal: No deficits noted. Historical: - Allergies: 10:29 Demerol; bp 10:29 dorvon; bp 10:29 Tamiflu; bp - Home Meds: 10:29 aspirin 81 mg Oral chew 1 tab once daily [Active]; Crestor Oral [Active]; gabapentin bp Oral [Active]; meloxicam Oral [Active]; metoprolol tartrate 25 mg Oral tab 1 tab 2 times per day [Active]; Tramadol Oral [Active]; - PMHx: 10:29 COPD; Hyperlipidemia; Hypertension; shoulder pain; bp - Immunization history:: Adult Immunizations up to date. - Social history:: Smoking status: Patient denies any tobacco usage or history of. Screenin:30 Abuse screen: Denies threats or abuse. Denies injuries from another. bp 10:30 Nutritional screening: No deficits noted. Tuberculosis screening: No symptoms or risk bp factors identified. Fall Risk None identified. Assessment: 10:25 General: SEE TRIAGE NOTE. bp 11:35 Reassessment: ALL CURRENT ORDERS COMPLETED, RESULTS PENDING. bp 12:46 GI: Abdomen is non-distended, Abd is soft X 4 quads. bp 13:47 Reassessment: PT D/C HOME AMBULATORY, DX WITH HTN. bp Vital Signs: 10:25 BP 185 / 72; Pulse 66; Resp 16; Temp 97.5; Pulse Ox 100% ; bp 11:34 BP 149 / 63; Pulse 63; Resp 16; Pulse Ox 97% ; bp 12:46 BP 137 / 70; Pulse 62; Resp 16; Pulse Ox 96% ; bp 13:47 BP 153 / 70; Pulse 63; Resp 16; Pulse Ox 96% ; bp ED Course: 10:05 Patient arrived in ED. mr 10:05 Denny Abdalla DO is Private Physician. mr 10:19 Shahram Santos, RN is Primary Nurse. bp 10:21 Triage completed. dm5 10:25 Arm band placed on. bp 10:30 Patient has correct armband on for positive identification. Bed in low position. Call bp light in reach. Side rails up X2. 10:36 Anisa Flores FNP-C is PHCP. snw 10:36 Gil Grissom MD is Attending Physician. snw 11:34 Inserted saline lock: 20 gauge in left antecubital area, using aseptic technique. Blood bp collected. 11:44 XRAY Chest (1 view) In Process Unspecified. EDMS 12:16 PHCP role handed off by Anisa Flores FNP-C jr8 12:16 Diego Desai PA is PHCP. jr8 13:11 CT Head Brain wo Cont In Process Unspecified. EDMS 13:21 Denny Abdalla DO is Referral Physician. jr8 13:47 No provider procedures requiring assistance completed. IV discontinued, intact, bp bleeding controlled, No redness/swelling at site. Pressure dressing applied. Administered Medications: No medications were administered Outcome: 13:22 Discharge ordered by . jr8 13:47 Discharged to home ambulatory. bp 13:47 Condition: stable 13:47 Discharge instructions given to patient, Instructed on discharge instructions, follow up and referral plans. Demonstrated understanding of instructions, follow-up care. 13:49 Patient left the ED. bp Signatures: Dispatcher [employer] Kallie Henry, RN RN dm5 Anisa Flores, PATIENT ADVOCATE-C PATIENT ADVOCATE-Csnw Josselin Arambula mr Lloyd, BENJAMÍN Cortez jr8 Shahram Santos RN RN bp
[2020-04-17 13:56] VITALS: TEMP 97.5
[2020-04-17 13:58] VITALS: O2SAT 96
[2020-04-17 13:59] VITALS: BP 153/70
--- NOTE | 2020-04-18 00:42 | RAD REPORT ---
EXAM DESCRIPTION: CT - Head Brain Wo Cont - 04/17/2020 10:21 pm CLINICAL HISTORY: PAIN Headache, drowsiness COMPARISON: Head Brain Wo Cont dated 03/29/2019; Head Brain Wo Cont dated 10/18/2017; Brain W/Wo Cont d ated 10/19/2017 TECHNIQUE: All CT scans are performed using dose optimization technique as appropriate and may inclu de automated exposure control or mA/KV adjustment according to patient size. FINDINGS: No intracranial hemorrhage, hydrocephalus or extra-axial fluid collection.Diminished densi ty in both parietal lobe regions is again seen, similar to prior studies.No areas of brain edema or e vidence of midline shift. The paranasal sinuses and mastoids are clear. The calvarium is intact. IMPRESSION: No acute intracranial abnormality.
--- NOTE | 2020-04-18 11:30 | RAD REPORT ---
EXAM DESCRIPTION: RAD - Chest Single View - 04/17/2020 10:19 pm CLINICAL HISTORY: CHEST PAIN COMPARISON: March 2019 TECHNIQUE: AP portable chest image was obtained 04/17/2020 10:19 pm . FINDINGS: Lungs are fibrotic. No focal lung parenchymal process identifiable. No acute failure or vo lume overload. Interstitial pattern is not clearly different from comparison. Heart and vasculature a re normal. No measurable pleural effusion and no pneumothorax. No acute bony abnormality seen. No acu te aortic finding. Report was delayed due to malfunction of the area attendant system. Image was reviewed at the time of the study. IMPRESSION: No acute cardiopulmonary process.
--- NOTE | 2020-04-19 08:22 | EKG ---
Test Date: 2020-04-17 Test Time: 10:46:32 Emergency Medcl Emt: TOPHER MEASUREMENT RESULTS: Intervals: Rate: 64 NE: 184 QRSD: 90 QT: 430 QTc: 443 [place]: P: 28 NE: 184 QRS: -45 T: -4 INTERPRETIVE STATEMENTS: Normal sinus rhythm Possible Left atrial enlargement Left axis deviation Low voltage QRS RSR' or QR pattern in V1 suggests right ventricular conduction delay Septal infarct, age undetermined Abnormal ECG Compared to ECG 03/29/2019 20:37:59 Left-axis deviation now present Low QRS voltage now present RSR' in V1 or V2 now present Myocardial infarct finding now present Left anterior fascicular block no longer present Electronically Signed On 04-19-20 08:19:34 CDT by Bladimir Nelson
== END 2020-04-17 13:49 | disposition home or self-care (01) ==
LOC: ER 10:00
DX: I16.0 Hypertensive urgency (principal); I10 Essential (primary) hypertension; E78.5 Hyperlipidemia, unspecified; J44.9 Chronic obstructive pulmonary disease, unspecified; Z79.82 Long term (current) use of aspirin; Z88.5 Allergy status to narcotic agent; Z88.8 Allergy status to other drugs, medicaments and biological substances
CPT/HCPCS: 36415; 70450; 71045; 80048; 80076; 83735; 83880; 84484; 85025; 85610; 93005; 99284

== ENCOUNTER 2020-09-29 16:34 | Emergency (ER) | payer OTHER ==
--- OUTSIDE RECORDS SUMMARY | 2020-09-29 16:36 | XMS REPORT | Continuity of Care Document ---
:1950 Author Organization [facility] t Address [address] [place] [address] Care Team Providers Name Role Phone OLGA Primary Care Physician Unavailable Estuardo ARROYO, Alyx Attending Clinician Teresa Nolasco CRNA Attending Clinician Good Sandoval MD Attending Clinician Only, Test Attending Clinician Unavailable Nurse, General Surgery Attending Clinician Unavailable OLGA Attending Clinician Unavailable Estuardo ARROYO, Alyx Admitting Clinician OLGA Admitting Clinician Unavailable Problems This patient has no known problems. Allergies, Adverse Reactions, Alerts Allergy Allergy Status Severity Reaction(s) Onset Inactive Treating Comm ents Source Name Type Date Date Clinician Tamiflu Adverse Active Info Not [facility] Reaction Available [facility] Demerol Adverse Active Info Not [facility] Reaction Available [facility] Darvon Adverse Active Info Not [facility] Reaction Available [facility] Medications Ordered Filled Start Stop Current Ordering Indication Dosage Frequency Signature Comments Components Source Medication Medication Date Date Medication? Clinician (SIG) Name Name Metoprolol Metoprolol 2020-0 Yes Denny [address] [facility] Succinate Succinate 2-05 Abdalla Luke [facility] - 00[facility]00[facility] Metoprolol Metoprolol 2018-07 Yes Denny [address] [facility] Tartrate Tartrate 1- Abdalla with food L ukes - 00:00: [facility] Crestor Crestor Yes Denny [address] [facility] Meloxicam Meloxicam Yes Denny [address] [facility] 81 Aspir-81 Yes Denny [address] [facility] Alendronate Alendronate Yes Denny [address] [facility] Sodium Sodium Abdalla 30 minutes Luke s - before the [facility] first l food, Outpati beverage ent or Clinics medicine of the day with plain water Xopenex Xopenex Yes Denny [address] [facility] Gabapentin Gabapentin Yes Denny [address] [facility] Meloxicam Meloxicam Yes Denny TAKE [address] Abdalla TABLET [facility] EVERY [facility] Metoprolol Metoprolol Yes Denny TAKE [address] [facility] Succinate Succinate Abdalla TABLET Aziza kes - ER ER EVERY DAY [facility] l Outpati ent Clinics Procedures This patient has no known procedures. Encounters Start End Encounter Admission Attending Care Care Encounter Source Date/Time Date/Time Type Type Clinicians Facility Department ID 2020-09-28 2020-09-28 Outpatient [facility] [id number] [facility] 2020-07-30 2020-07-30 [facility] [id number] [facility] 2020-07-28 2020-07-28 [facility] [id number] [facility] 2020-05-06 2020-05-06 Out[facility] [id number] [facility] 2020-04-24 2020-04-24 Out[facility] [id number] [facility] 2020-04-24 2020-04-24 Out[facility] [id number] [facility] Clinics 2020-04-17 2020-04-17 Outpatient [facility] [id number] [facility] 2020-01-16 2020-01-16 Outpatient Frederick Mackt [id number] [facility] 08:45:00 08:45:00 [employer] Fonda s [facility] 2019-12-05 2019-12-05 [facility] [id number] 10:22:39 13:03:00 Encounter Greyson Ullao [id number] [place] [id number] Surgical [id number] [place] 071 2019-12-05 2019-12-05 Anesthesia Nidia Nolasco [facility] [id number] 11:44:00 12:10:00 Prabhakar Sandovalton [id number] [place] [id number] Surgical [id number] [place] 020 2019-12-04 2019-12-04 Laboratory Only, [facility] [id number] 08:03:07 08:18:07 Only Test [place] [id number] [place] [id number] Professio [id number] [facility] 2019-11-21 2019-11-21 [facility] [id number] 07:48:00 11:30:00 Encounter Greyson Alyx [place] [id number] [place] [id number] Surgical [id number] [place] [address] 2019-11-20 2019-11-20 Laboratory Nurse, [facility] [id number] 08:56:58 09:07:43 Only General [place] [id number] Surgery [place] [id number] Professio [id number] [facility] 377 [facility] 2019-11-20 2019-11-20 [facility] [id number] 00:00:00 00:00:00 Greyson Ulloa [id number] [place] [id number] Surgical [id number] [place] 020 2019-11-12 2019-11-12 Outpatient Frederick Mackt [id number] [facility] 15:30:00 15:30:00 [facility] 2019-08-20 2019-08-20 [facility] [id number] 14:48:00 14:48:00 [facility] 2019-08-13 2019-08-13 [facility] [id number] 15:30:00 15:30:00 [facility] Results Test Description Test Time Test Comments Results Result Comments Source CBC with Differential 2017-03-30 23:33:00 Test Item Value Reference Range Interpretation Comme nts WBC (test code = WBC) 10.6 K/cumm 4.4-10.5 H RBC (test code = RBC) 4.59 M/cumm 3.75-5.20 N Hemoglobin (test code = HGB) 14.4 gm/dL 12.2-14.8 N Hematocrit (test code = HCT) 45.9 % 36.5-44.4 H MCV (test code = MCV) 100.1 fL 80-100 H MCH (test code = MCH) 31.3 pg 27.0-32.5 N MCHC (test code = MCHC) 31.3 g/dL 32.0-37.5 L RDW (test code = RDW) 13.6 % 11.5-14.5 N Platelet Count (test code = PLTCT) 264 K/cumm 140-440 N MPV (test code = MPV) 10.7 fL Diff Method (test code = DIFFM) Auto Neutrophil (test code = NEUT) 59.5 % 36-70 N Lymphocyte (test code = LYMPH) 32.4 % 12-44 N Monocyte (test code = MONO) 6.4 % 0-11 N Eosinophil (test code = EOS) 0.9 % 0-7 N Basophil (test code = BASO) 0.7 % 0-2 N Neutro Abs (test code = ANEUT) 6.3 K/cumm 1.6-7.4 N Lymph Abs (test code = ALYMPH) 3.4 K/cumm 0.5-4.6 N [place] Abs (test code = AMONO) 0.7 K/cumm 0.0-1.2 N Eos Abs (test code = AEOS) 0.10 K/cumm 0.00-0.74 N Baso Abs (test code = ABASO) 0.1 K/cumm 0.00-0.21 N Lipid [id number] 23:22:00 Test Item Value Reference Range Interpretation Comments Cholesterol (test 136 mg/dL 0-200 N code = CHOL) Triglycerides (test 100 mg/dL 9-200 N code = TRIG) HDL (test code = 53 mg/dL 50-60 N HDL) Chol/HDL (test code 2.6 Ratio 0.0-4.4 N = CHOLPHDL) LDL, Calculated 63 mg/dL 0-130 N (NOTE)RISK O F HEART (test code = LDLC) DISEASEPu blished by [place] Heart AssociationAnal yte Optim al Boderline Increased RiskC HOL <200 200-239 >240TRI G <150 150-199 >200HDL Male: >60 <40HDL Female: >60 <50 LDL < 100 130-15 9 >160 LDL NEAR OPTIMAL IS 100- 129 VLDL (test code = 20 mg/dL 5-40 N VLDL) LDL/HDL (test code = 1 LDLPHDL) Comprehensive Metabolic [id number] 23:22:00 Test Item Value Reference Range Interpretation Comments Sodium (test code = 130 mmol/L 135-145 L NA) Potassium (test 4.1 mmol/L 3.5-5.1 N code = K) Chloride (test code 93 mmol/L 98-105 L = CL) Carbon Dioxide 25 mmol/L 22-29 N (test code = CO2) Glucose (test code 95 mg/dL 70-115 N = GLU) Blood Urea Nitrogen 10 mg/dL 8-23 N (test code = BUN) Creatinine (test 0.9 mg/dL 0.5-0.9 N code = CREAT) Calcium (test code 10.0 mg/dL 8.3-10.5 N = CA) Prot Total (test 7.0 g/dL 6.4-8.3 N code = TP) Albumin (test code 4.4 g/dL 3.5-5.2 N = ALB) A/G Ratio (test 1.7 Ratio code = AGRATIO) Globulin (test code 2.6 2.9-3.1 L = GLOB) Bili Total (test 0.4 mg/dL 0.1-0.9 N code = TBIL) Alk Phos (test code 118 U/L 35-104 H = APHOS) AST (test code = 17 U/L 1-32 N AST) ALT (test code = 10 U/L 1-33 N ALT) BUN/Creatinine 11.1 Ratio (test code = BCRATIO) Anion Gap (test 12 mmol/L 7-16 N code = AGAP) Estimated GFR (test >60 eGFR (es timated code = GFR) mL/min/1.73m2 Glomerular Kendell tration Rate) is an est imated value,calculate d from the patient's s wilder creatinine usin g the MDRD equation.I t is NOT the patient 's actual GFR. The eGFR provides a more clinicallyusefu l measure of kidn ey disease than se rum creatinine alone.This calculation beverley es sex and race into account, if the informationis provided. If th e race is not provided , and the patient isAfrican-Ameri can, multiply by 1.2 12. If sex is not prov ided, and thepatient is female, multipl y by 0.742. Results for patients <18 ye ars ofage have not been validated by th e MDRD study and shoul d be interpretedwith caution.eGFR Re sult Interpretation: eGFR > or = 60 is in t he Normal RangeeGF R < 60 may mean kidney diseaseeGFR < 1 5 may mean kidney failureRange s recommended by the National Kidney Foundation,http ://nkd ep.nih.gov
[2020-09-29 19:26] LABS: Protime INR 0.93
[2020-09-29 19:30] LABS: Absolute Lymphocytes (CBC) 3.8 K/uL (0.7-4.9); Basophils % 0.6 % (0-1.3); Hematocrit 39.1 % (36.0-45.0); Lymphocytes % 27.8 % (15.3-44.8); MPV 11.4 fL (7.6-11.3); RBC Red Blood Cell Count 4.11 M/uL (3.86-4.86)
[2020-09-29 19:35] LABS: Potassium 4.7 mmol/L (3.5-5.1)
--- NOTE | 2020-09-29 20:28 | RAD REPORT ---
EXAM DESCRIPTION: US - UPPER EXTREMITY VENOUS BILAT - 09/29/2020 8:16 pm CLINICAL HISTORY: Arm swelling and pain COMPARISON: none FINDINGS: The internal jugular, subclavian, axillary, brachial, basilic, radial and ulnar veins bila terally are compressible. Doppler demonstrates good flow IMPRESSION: No evidence of venous thrombus involving either upper extremity
--- NOTE | 2020-09-29 20:54 | EDPHYS ---
Physician Documentation [facility] Name: Germania Bañuelos Age: 70 yrs Sex: Female : 1950 Arrival Date: 09/29/2020 Time: 16:37 Bed 13 Private MD: Rm [facility] ED Physician Sridhar Wilcox HPI: 09/29 18:40 This 70 yrs old Female presents to ER via Ambulatory with complaints of Hand cp Swelling. 18:40 The patient or guardian reports swelling, tenderness. The complaints affect the left cp hand diffusely, right hand diffusely. Context: resulted from an unknown cause. 18:40 Onset: The symptoms/episode began/occurred yesterday. cp 18:40 Associated signs and symptoms: Pertinent negatives: cyanosis distally, decreased cp sensation distally, chest pain, shortness of breath. 18:40 Patient denies injury, denies fever, chills. cp Historical: - Allergies: 16:48 Demerol; ca1 16:48 dorvon; ca1 16:48 Tamiflu; ca1 - PMHx: 16:48 COPD; Hyperlipidemia; Hypertension; shoulder pain; ca1 - PSHx: 16:48 None; ca1 - Immunization history:: Flu vaccine is not up to date. - Social history:: Smoking status: Patient reports the use of cigarette tobacco products, smokes one-half pack cigarettes per day. ROS: 18:45 Constitutional: Negative for body aches, chills, fever, poor PO intake. cp 18:45 Eyes: Negative for injury, pain, redness, and discharge. cp 18:45 ENT: Negative for ear pain, sore throat, difficulty swallowing, difficulty handling secretions. 18:45 Cardiovascular: Negative for chest pain, palpitations. 18:45 Respiratory: Negative for cough, shortness of breath, wheezing. 18:45 Abdomen/GI: Negative for abdominal pain, nausea, vomiting, and diarrhea. 18:45 Back: Negative for radiated pain. 18:45 MS/extremity: Positive for swelling, tenderness, of the right hand, left hand, right arm and left arm, Negative for injury or acute deformity, decreased range of motion, paresthesias. 18:45 Skin: Negative for rash. 18:45 Neuro: Negative for altered mental status, headache, syncope, weakness. 18:45 All other systems are negative. Exam: 18:50 Constitutional: The patient appears in no acute distress, alert, awake, cp non-diaphoretic, non-toxic, well developed, well nourished. 18:50 Head/Face: Normocephalic, atraumatic. cp 18:50 Chest/axilla: Inspection: normal. 18:50 Cardiovascular: Rate: normal, Rhythm: regular, Pulses: Pulses are 2+ in right radial artery and left radial artery. Edema: mild noted to left hand, JVD: is not appreciated. 18:50 Respiratory: the patient does not display signs of respiratory distress, Respirations: normal, no use of accessory muscles, no retractions, labored breathing, is not present, Breath sounds: are clear throughout, no decreased breath sounds, no stridor, no wheezing. 18:50 Musculoskeletal/extremity: Extremities: grossly normal except: noted in the left hand: pain, swelling, tenderness. 18:50 Skin: scant erythema noted radial side distal left forearm, skin warm and dry and no open wounds noted. Vital Signs: 16:41 BP 132 / 67; Pulse 64; Resp 16 S; Temp 97.6(TE); Pulse Ox 98% on R/A; Weight 54.43 kg ca1 (R); Height 5 ft. 0 in. (152.40 cm) (R); Pain 7/10; 19:00 BP 156 / 64; Pulse 60; Resp 16; Pulse Ox 99% ; bp 19:46 BP 158 / 63; Resp 16; Pulse Ox 97% ; ss 16:41 Body Mass Index 23.44 (54.43 kg, 152.40 cm) ca1 MDM: 18:36 Patient medically screened. cp 19:00 Differential diagnosis: dislocation, closed fracture, tendonitis, cellulitis, DVT, cp localized allergic reaction. 20:53 Data reviewed: vital signs, nurses notes, lab test result(s), radiologic studies, cp ultrasound. 20:53 Counseling: I had a detailed discussion with the patient and/or guardian regarding: the cp historical points, exam findings, and any diagnostic results supporting the discharge/admit diagnosis, lab results, radiology results, the need for outpatient follow up, a family practitioner, to return to the emergency department if symptoms worsen or persist or if there are any questions or concerns that arise at home. Response to treatment: the patient's symptoms have mildly improved after treatment, and as a result, I will discharge patient. 09/29 18:36 Order name: CBC with Diff; Complete Time: 19:55 cp 09/29 19:55 Interpretation: Normal except: WBC 13.80; MPV 11.4; EOSINOPHIL % 5.9. cp 09/29 18:36 Order name: BNP; Complete Time: 19:55 cp 09/29 19:56 Interpretation: Abnormal: NT PRO-BNP 522. cp 09/29 18:36 Order name: BMP; Complete Time: 19:55 cp 09/29 18:36 Order name: PT-INR; Complete Time: 19:55 cp 09/29 19:09 Order name: UPPER EXTREMITY VENOUS BILAT EDMS 09/29 18:36 Order name: IV; Complete Time: 19:02 cp 09/29 19:58 Order name: EKG; Complete Time: 23:35 cp 09/29 19:58 Order name: XRAY Chest (1 view) cp Administered Medications: :15 Drug: SOLU-Medrol 60 mg Route: IVP; Site: right wrist; 21:33 Follow up: Response: No adverse reaction; Medication administered at discharge. Disposition: 09/30 09:40 Co-signature as Attending Physician, Sridhar Wilcox MD I agree with the assessment and margie plan of care. Disposition: 09/29/20 20:54 Discharged to Home. Impression: Pain in arm, unspecified. - Condition is Stable. - Discharge Instructions: Pain Without a Known Cause. - Prescriptions for Doxycycline Hyclate 100 mg Oral Tablet - take 1 tablet by ORAL route every 12 hours; 20 tablet. Medrol (Brandon) 4 mg Oral Tablets, Dose Pack - take 1 tablet by ORAL route as directed - follow package instructions; 1 packet. - Medication Reconciliation Form, Thank You Letter, Antibiotic Education, Prescription Opioid Use form. - Follow up: Private Physician; When: 2 - 3 days; Reason: Recheck today's complaints. - Problem is new. - Symptoms have improved. Signatures: Dispatcher [employer] Sridhar Zimmer MD MD cha Smirch, Shelby, RN RN Sridhar Galindo PA PA cp Acob, Cheryl RN RN ca1 Corrections: (The following items were deleted from the chart) 09/29 19:09 18:37 Extrem Venous W Compression Walker+US.RAD.BRZ ordered. EDMS EDMS 21:10 19:58 EKG - Nurse/Tech ordered. cp ss 21:33 20:54 09/29/2020 20:54 Discharged to Home. Impression: Pain in arm, unspecified. ss Condition is Stable. Forms are Medication Reconciliation Form, Thank You Letter, Antibiotic Education, Prescription Opioid Use. Follow up: Private Physician; When: 2 - 3 days; Reason: Recheck today's complaints. Problem is new. Symptoms have improved. cp
--- NOTE | 2020-09-29 20:54 | ER ---
Nurse's Notes [facility] Name: Germania Bañuelos Age: 70 yrs Sex: Female : 1950 Arrival Date: 09/29/2020 Time: 16:37 Bed 13 Private MD: Denny Abdalla Diagnosis: Pain in arm, unspecified Presentation: 09/29 16:41 Chief complaint: Patient states: Walker hand, forearm pain and swelling. Started with the ca1 R yesterday, then the L hand and forearm this morning. Coronavirus screen: Client denies travel out of the [place] in the last 14 days. At this time, the client does not indicate any symptoms associated with coronavirus-19. Ebola Screen: Patient negative for fever greater than or equal to 101.5 degrees Fahrenheit, and additional compatible Ebola Virus Disease symptoms Patient denies exposure to infectious person. Patient denies travel to an Ebola-affected area in the 21 days before illness onset. No symptoms or risks identified at this time. Initial Sepsis Screen: Does the patient meet any 2 criteria? Yes Does the patient have a suspected source of infection?. Risk Assessment: Do you want to hurt yourself or someone else? Patient reports no desire to harm self or others. Onset of symptoms was September 28, 2020. 16:41 Method Of Arrival: Ambulatory ca1 16:41 Acuity: MIGUEL 4 ca1 18:37 Acuity: MIGUEL 3 ca1 Triage Assessment: 18:26 General: Appears distressed, uncomfortable, Behavior is cooperative, appropriate for bp age, anxious. Pain: Complains of pain in right hand and left hand. EENT: No deficits noted. Neuro: No deficits noted. Cardiovascular: No deficits noted. Respiratory: No deficits noted. GI: No signs and/or symptoms were reported involving the gastrointestinal system. : No signs and/or symptoms were reported regarding the genitourinary system. Derm: No deficits noted. Musculoskeletal: Swelling present in right hand and left hand. Historical: - Allergies: 16:48 Demerol; ca1 16:48 dorvon; ca1 16:48 Tamiflu; ca1 - PMHx: 16:48 COPD; Hyperlipidemia; Hypertension; shoulder pain; ca1 - PSHx: 16:48 None; ca1 - Immunization history:: Flu vaccine is not up to date. - Social history:: Smoking status: Patient reports the use of cigarette tobacco products, smokes one-half pack cigarettes per day. Screenin:27 Abuse screen: Denies threats or abuse. Denies injuries from another. Nutritional bp screening: No deficits noted. Tuberculosis screening: No symptoms or risk factors identified. Fall Risk None identified. Assessment: 18:27 General: SEE TRIAGE NOTE. bp 19:46 General: Appears in no apparent distress. comfortable, Behavior is calm, cooperative. ss Neuro: Level of Consciousness is awake, alert, obeys commands, Oriented to person, place, time, situation, Speech is normal. Cardiovascular: Capillary refill < 3 seconds is brisk in bilateral fingers. Respiratory: Airway is patent Respiratory effort is even, unlabored, Respiratory pattern is regular, symmetrical. GI: Patient currently denies diarrhea, nausea, vomiting. EENT: Nares are clear Oral mucosa is moist. Derm: Skin is intact, is healthy with good turgor, Skin is dry, Skin is pink, warm \T\ dry. normal. Musculoskeletal: Circulation, motion, and sensation intact. Range of motion: intact in all extremities, Swelling absent. 20:30 Reassessment: Patient appears in no apparent distress at this time. Patient and/or ss family updated on plan of care and expected duration. Pain level reassessed. Patient is alert, oriented x 3, equal unlabored respirations, skin warm/dry/pink. Vital Signs: 16:41 BP 132 / 67; Pulse 64; Resp 16 S; Temp 97.6(TE); Pulse Ox 98% on R/A; Weight 54.43 kg ca1 (R); Height 5 ft. 0 in. (152.40 cm) (R); Pain 7/10; 19:00 BP 156 / 64; Pulse 60; Resp 16; Pulse Ox 99% ; bp 19:46 BP 158 / 63; Resp 16; Pulse Ox 97% ; ss 16:41 Body Mass Index 23.44 (54.43 kg, 152.40 cm) ca1 ED Course: 16:37 Patient arrived in ED. mr 16:37 Denny Abdalla DO is Private Physician. mr 16:47 Triage completed. ca1 16:48 Arm band placed on right wrist. ca1 18:25 Shahram Santos, DEBRA is Primary Nurse. bp 18:27 Sridhar Galindo PA is PHCP. cp 18:27 Sridhar Wilcox MD is Attending Physician. cp 18:27 Patient has correct armband on for positive identification. Bed in low position. Call bp light in reach. Side rails up X2. 19:00 Inserted saline lock: 22 gauge in right forearm, using aseptic technique. Blood bp collected. 20:30 No provider procedures requiring assistance completed. IV discontinued, intact, ss bleeding controlled, No redness/swelling at site. Pressure dressing applied. 20:35 Primary Nurse role handed off by Shahram Santos RN 21:20 Aissatou Caba RN is Primary Nurse. ss 23:36 UPPER EXTREMITY VENOUS BILAT In Process Unspecified. EDMS 23:38 XRAY Chest (1 view) In Process Unspecified. EDMS Administered Medications: 09:15 Drug: SOLU-Medrol 60 mg Route: IVP; Site: right wrist; ss 21:33 Follow up: Response: No adverse reaction; Medication administered at discharge. ss Outcome: 20:30 Discharged to home ambulatory. ss 20:30 Condition: good 20:30 Discharge instructions given to patient, Instructed on discharge instructions, follow up and referral plans. medication usage, Demonstrated understanding of instructions, follow-up care, Prescriptions given X 2. 20:54 Discharge ordered by MD. cp 21:33 Patient left the ED. ss Signatures: Dispatcher [employer] EDMS Franck Prakash RN RN Josselin Arambula mr Aissatou Caba, DEBRA RICHARDSON ss Sridhar Galindo, PA PA cp Shahram Santos, Stephania Boone RN, RN RN ca1 Corrections: (The following items were deleted from the chart) 21:33 20:30 Patient did not have IV access during this emergency room visit. ss ss
--- NOTE | 2020-09-29 21:00 | RAD REPORT ---
EXAM DESCRIPTION: Santos Single View09/29/2020 8:53 pm CLINICAL HISTORY: COPD and hand swelling COMPARISON: 2019 FINDINGS: Lungs are hyperaerated. Scoliosis involves the spine. The lungs appear clear of acute infiltrate. The heart is normal size IMPRESSION: No acute abnormalities displayed
[2020-09-29] MEDS ORDERED: METHYLPREDNISOLONE 40 MG INJ ONE (21:28)
[2020-09-30 02:11] VITALS: TEMP 97.6
[2020-09-30 02:13] VITALS: BP 158/63; O2SAT 97
== END 2020-09-29 21:33 | disposition home or self-care (01) ==
LOC: ER 16:34
DX: M79.603 Pain in arm, unspecified (principal); R22.33 Localized swelling, mass and lump, upper limb, bilateral; J44.9 Chronic obstructive pulmonary disease, unspecified; E78.5 Hyperlipidemia, unspecified; I10 Essential (primary) hypertension; F17.210 Nicotine dependence, cigarettes, uncomplicated
CPT/HCPCS: 85025; 80048; 36415; 85610; 83880; 71045; 93970; J2920; 96374; 99284

== ENCOUNTER 2020-12-12 08:06 | Day surgery (SDC) | payer OTHER ==
[2020-12-11 10:48] LABS: Absolute Lymphocytes (CBC) 2.9 K/uL (0.7-4.9); Basophils % 0.9 % (0-1.3); Hematocrit 40.3 % (36.0-45.0); Lymphocytes % 30.5 % (15.3-44.8); MPV 10.8 fL (7.6-11.3); RBC Red Blood Cell Count 4.35 M/uL (3.86-4.86)
[2020-12-11 10:52] LABS: Protime INR 0.95
[2020-12-11 11:11] LABS: Potassium 4.2 mmol/L (3.5-5.1)
[2020-12-12] MEDS ORDERED: NA CHLORIDE 0.9% 500 ML ONE (08:35)
[2020-12-12 08:44] VITALS: TEMP 97.2
[2020-12-12] MEDS ORDERED: LIDOCAINE 1% 20 ML MDV ONE (08:59)
[2020-12-12] MEDS ORDERED: HEPA 1000U/500MLS 1,000 UNIT/500 ML BAG IV ONE (08:59)
[2020-12-12] MEDS ORDERED: MIDAZOLAM HCL 2 MG/2 ML INJ ONE (09:00)
[2020-12-12] MEDS ORDERED: NA CHLORIDE 0.9% 0 ML ONE (09:00)
[2020-12-12] MEDS ORDERED: FENTANYL CITR 100 MCG/2 ML ONE (09:00)
[2020-12-12] MEDS ORDERED: ATROPINE SULF 1 MG/10 ML SYR IV ONE (09:00)
--- NOTE | 2020-12-12 11:32 | OP ---
Surgeon: Bladimir Nelson MD Engine Setter: Mr. Kentrell Mane. Procedures Performed: Admitted to my service as an outpatient today 12/12/2020 at 10 in the morning. The patient was brought to the farm labor contractor for left heart catheterization, selective coronary arteriog samuel, left ventriculogram. Indication: CAD, abnormal stress test, and chest pain. Procedure In Detail: A 6-Hungarian sheath introduced in the right common femoral artery successfully us ing the Seldinger technique and 10 mL of Xylocaine. Angiography there was normal. Angio-Seal was us ed to close the case. Lisa catheter left and right were used to do the heart catheterization. Ranjeet prado had a normal left main, normal circumflex, nondominant. The LAD was normal, but tortuous in the pr oximal area and mid area. There was a 20% to 30% stenosis in the distal LAD. The ostium of the RCA showed a 50% stenosis. Cannulating the right main did not show any gradient. There was a patent dre nt in the mid RCA. There were no complications. Blood Loss: 5 mL. Postoperative Diagnosis: Moderate coronary artery disease. Plan: To continue medical therapy. The patient is already on aspirin, beta-sarah, and Toprol. Ranjeet prado can go home today after 2 hours of bedrest. She will see me in the office in 2 weeks. Anesthesia: Total conscious sedation was 45 minutes. BLADIMIR/DENISE Voice ID: [id number] Report ID: [id number]
[2020-12-12] MEDS ORDERED: ACETAMINOPHEN 325 MG TABLET ONE (12:03)
[2020-12-12 12:04] VITALS: O2SAT 98
[2020-12-12 12:38] VITALS: BP 162/78
== END 2020-12-12 12:39 | disposition home or self-care (01) ==
LOC: CCL 08:06
DX: I25.110 Atherosclerotic heart disease of native coronary artery with unstable angina pectoris (principal); I65.22 Occlusion and stenosis of left carotid artery; I10 Essential (primary) hypertension; E78.2 Mixed hyperlipidemia; Z95.5 Presence of coronary angioplasty implant and graft; F17.210 Nicotine dependence, cigarettes, uncomplicated; Z88.6 Allergy status to analgesic agent; Z88.8 Allergy status to other drugs, medicaments and biological substances; Z20.822 Contact with and (suspected) exposure to COVID-19
CPT/HCPCS: 85025; 80048; 36415; 85610; 85730; 93458; U0003; C1893; C1760; J2250; J3010; J7040; J1644; J0583

== ENCOUNTER 2021-12-03 09:41 | Emergency (ER) | payer OTHER ==
--- OUTSIDE RECORDS SUMMARY | 2021-12-03 09:45 | XMS REPORT | Continuity of Care Document ---
:1950 Author Organization [facility] t Address [address] [place] [address] Care Team Providers Name Role Phone OLGA Primary Care Physician Unavailable Teresa Abdalla Attending Clinician Unavailable Long Attending Clinician Unavailable ESTUARDO, Alyx Attending Clinician Unavailable Alyx Moore MD Attending Clinician Teresa Nolasco CRNA Attending Clinician Good Sandoval MD Attending Clinician Only, Test Attending Clinician Unavailable Nurse, General Surgery Attending Clinician Unavailable Pob, Lab Main Attending Clinician Unavailable OLGA Attending Clinician Unavailable Marcia Attending Clinician Unavailable Alyx MOORE Admitting Clinician Unavailable Alyx Moore MD Admitting Clinician OLGA Admitting Clinician Unavailable Marcia Admitting Clinician Unavailable Payers Payer Name Policy Type Policy Number Effective Date Expiration Date S aldo [employer] CHOICE [id number] 2019 00:00:00 [facility] - [id number] CARE IMPROVEMENT PLUS - REGIONAL (MEDICARE REPLACEMENT PPO) [place]IC[place]: [id number] 2011 [employer] 00:00:00 Problems Condition Condition Condition Status Onset Resolution Last Treating Co mments Source Name Details Category Date Date Treatment Clinician Date No known No known Disease Unive rs active active ity of problems problems [facility] Allergies, Adverse Reactions, Alerts Allergy Allergy Status Severity Reaction(s) Onset Inactive Treating Comm ents Source Name Type Date Date Clinician OSELTAMI DRUG Active Dizziness Unive rs VIR INGREDI 11-20 ity of PHOSPHAT 00:00: [place] E 00 Medical Branch Oseltami Propensi Active Dizziness Uni vers vir ty to 11-20 ity of Phosphat adverse 00:00: [place] e reaction 00 Medical s Branch PROPOXYP DRUG Active Hallucinates Un shahram HENE HCL INGREDI 307 ity of 00:00: [place] [facility] MEPERIDI DRUG Active Hallucinates Un shahram NE HCL INGREDI 07 ity of 00:00: [place] [facility] Propoxyp Propensi Active Hallucinatio Univers hene Hcl ty to ns 3-07 ity of adverse 00:00: [place] reaction 00 Medical s Branch Meperidi Propensi Active Hallucinatio Univers ne Hcl ty to ns 3-07 ity of adverse 00:00: [place] reaction 00 Medical Branch Tamiflu Adverse Active Info Not Common Reaction Available [facility] Demerol Adverse Active Info Not Common Reaction Available [facility] Darvon Adverse Active Info Not Common Reaction Available [facility] Social History Social Habit Start Date Stop Date Quantity Comments Source Sex Assigned At [facility] to [facility]-CoV-2 [facility] Smoking Status Start Date Stop Date Source Unknown if ever smoked Universit y [facility] Current every day smoker 2019-12-05 00:00:00 [facility] Medications Ordered Filled Start Stop Current Ordering Indication Dosage Frequency Signature Comments Components Source Medication Medication Date Date Medication? Clinician (SIG) Name Name lisinopril Yes 5mg Take 5 mg Un shahram (ZESTRIL) 5 5-20 by mouth ity of mg tablet 20:06: daily. [address] atenolol 0 Yes 25mg Take 25 mg Uni vers (TENORMIN) 5-20 by mouth 2 ity of 25 mg 20:06: (two) [place] tablet 53 times Medical daily. Branch ISOSORBIDE 2020-0 Yes 30mg Take 30 mg U nivers ORAL 5-20 by mouth ity of 20:06: daily. [place] [address] Medical Branch clopidogrel 2020-0 Yes 75mg Take 75 mg Univers (PLAVIX) 75 5-20 by mouth ity of mg tablet 20:06: daily. [place] [address] Medical Branch amLODIPine 2020-0 Yes 10mg Take 10 mg U nivers (NORVASC) 5-20 by mouth ity of 10 mg 20:06: daily. [place] tablet 53 Medical Branch POTASSIUM 2020-0 Yes 2{tbl} Take 2 Univ ers GLUCONATE 5-20 Tabs by ity of ORAL 20:06: mouth 2 [place] [address] (two) Medical times Branch daily. aspirin 81 2020-0 Yes 81mg Take 81 mg U nivers mg tablet 5-20 by mouth ity of 20:06: daily. [place] [address] Medical Branch metoprolol 2020-0 Yes 25mg Take 25 mg U nivers tartrate 25 5-20 by mouth 2 it y of mg tablet 20:06: (two) [place] [address] times Medical daily. Branch ergocalcife 2020-0 Yes Take by Un shahram rol, 5-20 mouth. ity of vitamin D2, 20:06: [place] (VITAMIN D 53 Medical ORAL) Branch lisinopril 2020-0 Yes 5mg Take 5 mg Un shahram (ZESTRIL) 5 5-20 by mouth ity of mg tablet 20:06: daily. [place] [address] Medical Branch atenolol 2020-0 Yes 25mg Take 25 mg Uni vers (TENORMIN) 5-20 by mouth 2 ity of 25 mg 20:06: (two) [place] tablet 53 times Medical daily. Branch ISOSORBIDE 2020-0 Yes 30mg Take 30 mg U nivers ORAL 5-20 by mouth ity of 20:06: daily. [place] [address] Medical Branch clopidogrel 2020-0 Yes 75mg Take 75 mg Univers (PLAVIX) 75 5-20 by mouth ity of mg tablet 20:06: daily. [place] [address] Medical Branch amLODIPine 2020-0 Yes 10mg Take 10 mg U nivers (NORVASC) 5-20 by mouth ity of 10 mg 20:06: daily. [facility] 53 Medical Branch POTASSIUM 2020-0 Yes 2{tbl} Take 2 Univ ers GLUCONATE 5-20 Tabs by ity of ORAL 20:06: mouth 2 [place] 53 (two) Medical times [place] daily. aspirin 81 2020-0 Yes 81mg Take 81 mg U nivers mg tablet 5-20 by mouth ity of 20:06: daily. [place] [address] Medical Branch metoprolol 2020-0 Yes 25mg Take 25 mg U nivers tartrate 25 5-20 by mouth 2 it y of mg tablet 20:06: (two) [address] daily[address] Branch ergocalcife 2020-0 Yes Take by Un shahram rol, 5-20 mouth. ity of vitamin D2, 20:06: [place] (VITAMIN D 53 Medical ORAL) Branch lactated 2020-0 Yes 500mL at 75 Univers ringers IV 5-20 mL/hr, 500 ity of infusion 17:30: mL, IV [place] 500 mL 00 Infusion, Medical CONTINUOUS Branch , Starting Tue12/05/19 at 1230, Until Discontinu ed, Routine, PACU sodium 2020-0 Yes PRN, Univers chloride 5-20 Starting ity of (NS) 17:03: Tue [place] injection 12/05/19 at [facility] 1203, Branch Until Discontinu ed, Routine, Intra-op lidocaine-e 2020-0 Yes [facility], [facility]20 Starting ity o f (XYLOCAINE 17:03: Tue [place] W/EPINEPHRI 12/05/19 at In dicmd NE) 2 1203, Branch %-1:200,000 Until injection Discontinu ed, Routine, Intra-op neomycin-po 2020-0 Yes PRN, [facility] lymyxin-dex 5-20 Starting ity of amethasone 17:01: Tue [place] (MAXITROL) 12/05/19 at [facility] ical 3.5 1201, [place] mg/g-10,000 Until unit/g-0.1 Discontinu % ed, ophthalmic Routine, ointment Intra-op gentamicin 2020-0 Yes PRN, Univers injection 5-20 Starting ity of 17:00: Tue [place] 12/05/19 at [facility] 1200, Branch Until Discontinu ed, LASHONDA, Intra-op water for 2020-0 Yes PRN, Univers irrigation 5-20 Starting ity o f irrigation 16:55: Tue [place] solution 12/05/19 at Medic al 1155, Branch Until Discontinu ed, Routine, Intra-op Hyaluronida 2020-0 Yes PRN, Univer s se, Human 5-20 Starting ity of Recomb. 16:50: Tue (HYLENEX) 00 12/05/19 at Medi prashant injection 1150, Branch Until Discontinu ed, Routine, Intra-op propofol IV 2020-0 2020- No Intravenou Univers infusion 5-20 05-20 s, ONCE ity of 16:50: 17:11 INTRA [place] 00 :01 PROCEDURE, Medical Starting Branch 12/05/19 at 1150, Until Tue12/05/19 at 1211, Routine, Intra-op remifentani 2020-0 2020- No Intravenou Univers l (ULTIVA) 5-20 05-20 s, ONCE ity o f injection 16:50: 17:11 INTRA [place] 00 :01 PROCEDURE, Medical Starting Branch 12/05/19 at 1150, Until Tue12/05/19 at 1211, Routine, Intra-op lactated 2020-0 2020- No IV Univers ringers IV 5-20 05-20 Infusion, ity of infusion 16:44: 17:11 CONTINUOUS [place] 00 :01 PRN, Medical Starting Branch 12/05/19 at 1144, Until Tue12/05/19 at 1211, Routine, Intra-op EPINEPHrine 2020-0 Yes PRN, Univer s 1:1,000 (1 5-20 Starting ity o f mg/mL) 16:36: Tue (ADRENALIN) 12/05/19 at Me dical injection 1136, Branch Until Discontinu ed, Routine, Intra-op DUOVISC 2020-0 Yes PRN, Univers (DUOVISC 5-20 Starting ity of VISCO 16:36: Tue ELASTIC) 3 00 12/05/19 at Med ical %-4 %(0.5 1136, Branch mL) 1 % Until (0.55 mL) Discontinu intraocular ed, injection Routine, Intra-op dexamethaso 2020-0 Yes PRN, Univer s ne 5-20 Starting ity of (DECADRON 16:36: Tue PHOSPHATE) 00 12/05/19 at Med ical injection 1136, Branch Until Discontinu ed, Routine, Intra-op ceFAZolin 2020-0 Yes PRN, Univers (ANCEF) 5-20 Starting ity of injection 16:36: Tue [place] 00 12/05/19 at Medical 1136, Branch Until Discontinu ed, LASHONDA, Intra-op carbachoL 2020-0 Yes PRN, Univers (MIOSTAT) 5-20 Starting ity of 0.01 % 16:36: Tue [place] intraocular 00 12/05/19 at In dical injection 1136, Branch Until Discontinu ed, Routine, Intra-op bupivacaine 2020-0 Yes PRN, Univer s (preserv 5-20 Starting ity of free) 16:35: Tue (SENSORCAIN 00 12/05/19 at In dicmd E MPF) 0.75 1135, Branch % (7.5 Until mg/mL) Discontinu injection ed, Routine, Intra-op balanced 2020-0 Yes PRN, Univers salt irrig 5-20 Starting ity o f soln comb1 16:35: Tue (BSS PLUS) 00 12/05/19 at [facility] ical ophthalmic 1135, Branch solution Until 500 mL bag Discontinu ed, Routine, Intra-op mydriatic 2019-0 2020- No .5mL 0.5 mL, Univ ers #5 5-20 05-20 Left Eye, ity of ophthalmic 15:30: 15:39 ONCE, 1 [place] solution 00 :00 dose, Tue Medica l 0.5 mL 12/05/19 at [place] syringe 1030, Routine, DSU Pre-op lactated 2020-0 2020- No 500mL at 20 Univer s ringers IV 5-20 05-20 mL/hr, 500 it y of infusion 15:30: 15:39 mL, IV [place] 500 mL 00 :00 Infusion, [facility] ONCE, 1 Branch dose, 12/05/19 at 1030, Routine, DSU Pre-op clopidogrel 2020-0 Yes 75mg Take 75 mg Univers (PLAVIX) 75 5-19 by mouth ity of mg tablet 13:18: daily. [place] [facility] lisinopril 2020-0 Yes 5mg Take 5 mg Un shahram (ZESTRIL) 5 5-06 by mouth ity of mg tablet 18:51: daily. [place] [facility] atenolol 2020-0 Yes 25mg Take 25 mg Uni vers (TENORMIN) 5-06 by mouth 2 ity of 25 mg 18:51: (two) [place] tablet 29 times Medical daily. [place] ISOSORBIDE 2019-0 Yes 30mg Take 30 mg U nivers ORAL 5-06 by mouth ity of 18:51: daily. [place] [address] Medical Branch amLODIPine 2020-0 Yes 10mg Take 10 mg U nivers (NORVASC) 5-06 by mouth ity of 10 mg 18:51: daily. [place] tablet 29 Medical Branch POTASSIUM 2020-0 Yes 2{tbl} Take 2 Univ ers GLUCONATE 5-06 Tabs by ity of ORAL 18:51: mouth 2 [place] [address] (two) Medical times Branch daily. aspirin 81 2020-0 Yes 81mg Take 81 mg U nivers mg tablet 5-06 by mouth ity of 18:51: daily. [place] [address] Medical Branch metoprolol 2020-0 Yes 25mg Take 25 mg U nivers tartrate 25 5-06 by mouth 2 it y of mg tablet 18:51: (two) [address] Medical daily. Branch ergocalcife 2020-0 Yes Take by Un shahram rol, 5-06 mouth. ity of vitamin D2, 18:51: [place] (VITAMIN D 29 Medical ORAL) Branch lisinopril 2020-0 Yes 5mg Take 5 mg Un shahram (ZESTRIL) 5 5-06 by mouth ity of mg tablet 18:51: daily. [place] [address] Medical Branch atenolol 2020-0 Yes 25mg Take 25 mg Uni vers (TENORMIN) 5-06 by mouth 2 ity of 25 mg 18:51: (two) [place] tablet 29 times Medical daily. Branch ISOSORBIDE 2020-0 Yes 30mg Take 30 mg U nivers ORAL 5-06 by mouth ity of 18:51: daily. [place] [address] Medical Branch clopidogrel 2020-0 Yes 75mg Take 75 mg Univers (PLAVIX) 75 5-06 by mouth ity of mg tablet 18:51: daily. [place] [address] Medical Branch amLODIPine 2020-0 Yes 10mg Take 10 mg U nivers (NORVASC) 5-06 by mouth ity of 10 mg 18:51: daily. [facility] 29 Medical Branch POTASSIUM 2020-0 Yes 2{tbl} Take 2 Univ ers GLUCONATE 5-06 Tabs by ity of ORAL 18:51: mouth 2 [place] [address] (two) Medical times [place] daily. aspirin 81 2020-0 Yes 81mg Take 81 mg U nivers mg tablet 5-06 by mouth ity of 18:51: daily. [place] [address] Medical Branch metoprolol 2020-0 Yes 25mg Take 25 mg U nivers tartrate 25 5-06 by mouth 2 it y of mg tablet 18:51: (two) [place] [address] times Medical daily. Branch ergocalcife 2020-0 Yes Take by Un shahram rol, 5-06 mouth. ity of vitamin D2, 18:51: [place] (VITAMIN D 29 Medical ORAL) Branch lactated 2020-0 Yes 1000mL at 75 Univ s ringers IV 5-06 mL/hr, ity of infusion 16:00: 1,000 mL, [place] 1,000 mL 00 IV Medical Infusion, Branch CONTINUOUS , Starting Tue11/21/19 at 1100, Until Discontinu ed, Routine, PACU water for 2020-0 Yes PRN, Univers irrigation 5- Starting ity o f irrigation 14:30: Tue11/21/19 [place] solution 00 at 0930, Medical Until Branch Discontinu ed, Routine, Intra-op sodium 2020-0 Yes PRN, Univers chloride - Starting ity of (NS) 14:29: Tue11/21/19 [place] injection 00 at 0929, Medica l Until Branch Discontinu ed, Routine, Intra-op neomycin-po 2020-0 Yes PRN, [facility] s lymyxin-dex - Starting ity of amethasone 14:29: Tue11/21/19 [place] (MAXITROL) 00 at 0929, Medic al 3.5 Until Branch mg/g-10,000 Discontinu unit/g-0.1 ed, % Routine, ophthalmic Intra-op ointment lidocaine-e 2020-0 Yes PRN, [facility] s pinephrine 5-06 Starting ity o f (XYLOCAINE 14:29: Tue11/21/19 [place] W/EPINEPHRI 00 at 0929, Medi prashant NE) 2 Until Branch %-1:200,000 Discontinu injection ed, Routine, Intra-op Hyaluronida 2020-0 Yes PRN, [facility] s se, Human 5-06 Starting ity of Recomb. 14:28: Tue11/21/19 [place] (HYLENEX) 00 at 0928, Medica l injection Until Branch Discontinu ed, Routine, Intra-op gentamicin 2020-0 Yes PRN, Univers injection 5-06 Starting ity of 14:28: Tue11/21/19 [place] 00 at 0928, Medical Until Branch Discontinu ed, LASHONDA, Intra-op EPINEPHrine 2020-0 Yes PRN, Univer s 1:1,000 (1 11-20 Starting ity o f mg/mL) 14:27: Tue11/21/19 [place] (ADRENALIN) 00 at 0927, Medi prashant injection Until Branch Discontinu ed, Routine, Intra-op DUOVISC 2020-0 Yes PRN, Univers (DUOVISC 11-20 Starting ity of VISCO 14:27: Tue11/21/19 [place] ELASTIC) 3 00 at 0927, Medic al %-4 %(0.5 Until Branch mL) 1 % Discontinu (0.55 mL) ed, intraocular Routine, injection Intra-op dexamethaso 2020-0 Yes PRN, Univer s ne 11-20 Starting ity of (DECADRON 14:27: Tue11/21/19 [place] PHOSPHATE) 00 at 0927, Medic al injection Until Branch Discontinu ed, Routine, Intra-op ceFAZolin 2020-0 Yes PRN, Univers (ANCEF) 11-20 Starting ity of injection 14:26: Tue11/21/19 [place] 00 at 0926, Medical Until Branch Discontinu ed, LASHONDA, Intra-op carbachoL 2020-0 Yes PRN, Univers (MIOSTAT) 11-20 Starting ity of 0.01 % 14:26: Tue11/21/19 [place] intraocular 00 at 0926, Medi prashant injection Until Branch Discontinu ed, Routine, Intra-op bupivacaine 2020-0 Yes PRN, Univer s (preserv 11-20 Starting ity of free) 14:25: Tue11/21/19 [place] (SENSORCAIN 00 at 09, [facility] E MPF) 0.75 Until Branch % (7.5 Discontinu mg/mL) ed, injection Routine, Intra-op balanced 2020-0 Yes PRN, Univers salt irrig 06 Starting ity o f soln comb1 14:25: Tue11/21/19 [place] (BSS PLUS) 00 at 0925, Medic al ophthalmic Until Branch solution Discontinu 500 mL bag ed, Routine, Intra-op lactated 2020-0 2020- No 1000mL at 50 Unive rs ringers IV 5-06 05-06 mL/hr, ity of infusion 14:15: 15:14 1,000 mL, [place] 1,000 mL 00 :00 IV Medical Infusion, Branch CONTINUOUS , Starting Tue11/21/19 at 0915, Until Tue11/21/19 at 1014, Routine, DSU Pre-op lisinopril 2020-0 Yes 5mg Take 5 mg Un shahram (ZESTRIL) 5 5-05 by mouth ity of mg tablet 13:44: daily. [address] ISOSORBIDE 2020-0 Yes 30mg Take 30 mg U nivers ORAL 5-05 by mouth ity of 13:44: daily. [address] clopidogrel 2020-0 Yes 75mg Take 75 mg Univers (PLAVIX) 75 5-05 by mouth ity of mg tablet 13:44: daily. [address] amLODIPine 2020-0 Yes 10mg Take 10 mg U nivers (NORVASC) 5-05 by mouth ity of 10 mg 13:44: daily. [address] lisinopril 2020-0 Yes 5mg Take 5 mg Un shahram (ZESTRIL) 5 5-05 by mouth ity of mg tablet 13:44: daily. [address] ISOSORBIDE 2020-0 Yes 30mg Take 30 mg U nivers ORAL 5-05 by mouth ity of 13:44: daily. [address] clopidogrel 2020-0 Yes 75mg Take 75 mg Univers (PLAVIX) 75 5-05 by mouth ity of mg tablet 13:44: daily. [address] amLODIPine 2020-0 Yes 10mg Take 10 mg U nivers (NORVASC) 5-05 by mouth ity of 10 mg 13:44: daily. [address] lisinopril 2020-0 Yes 5mg Take 5 mg Un shahram (ZESTRIL) 5 5-05 by mouth ity of mg tablet 13:44: daily. [address] ISOSORBIDE 2020-0 Yes 30mg Take 30 mg U nivers ORAL 5-05 by mouth ity of 13:44: daily. [address] clopidogrel 2020-0 Yes 75mg Take 75 mg Univers (PLAVIX) 75 5-05 by mouth ity of mg tablet 13:44: daily. [address] amLODIPine 2020-0 Yes 10mg Take 10 mg U nivers (NORVASC) 5-05 by mouth ity of 10 mg 13:44: daily. [place] tablet 30 Medical Branch lisinopril 2019-0 Yes 5mg Take 5 mg Un shahram (ZESTRIL) 5 5-05 by mouth ity of mg tablet 13:44: daily. [place] 30 Medical Branch ISOSORBIDE 2020-0 Yes 30mg Take 30 mg U nivers ORAL 5-05 by mouth ity of 13:44: daily. [place] 30 Medical Branch clopidogrel 2019-0 Yes 75mg Take 75 mg Univers (PLAVIX) 75 5-05 by mouth ity of mg tablet 13:44: daily. [place] 30 Medical Branch amLODIPine 2019-0 Yes 10mg Take 10 mg U nivers (NORVASC) 5-05 by mouth ity of 10 mg 13:44: daily. [place] tablet 30 Medical Branch metoprolol 2019-0 Yes 25mg Take 25 mg U nivers tartrate 25 5-05 by mouth 2 it y of mg tablet 13:44: (two) [place] 29 times Medical daily. Branch ergocalcife 0 Yes Take by Un shahram rol, 5-05 mouth. ity of vitamin D2, 13:44: [place] (VITAMIN D 29 Medical ORAL) Branch Metoprolol Metoprolol Yes Denny 1 capsule Common Succinate Succinate 2-05 Abdalla Spir it 00:00: - [facility] Metoprolol Metoprolol 2018-07 Yes Denny 1 tablet Common Tartrate Tartrate - Abdalla with food S pirit 00:00: - [facility] 00 [facility] amLODIPine 2011- Yes 10mg Take 10 mg U nivers (NORVASC) 3-07 by mouth ity of 10 mg 18:54: daily. [facility] 43 Medical Branch POTASSIUM Yes 2{tbl} Take 2 Univ ers GLUCONATE 3-07 Tabs by ity of ORAL 18:54: mouth 2 [place] 43 (two) Medical times Branch daily. aspirin 81 Yes 81mg Take 81 mg U nivers mg tablet 3-07 by mouth ity of 18:54: daily. [place] [address] Medical Branch POTASSIUM Yes 2{tbl} Take 2 Univ ers GLUCONATE 3-07 Tabs by ity of ORAL 18:54: mouth 2 [place] [address] (two) Medical times Branch daily. aspirin 81 Yes 81mg Take 81 mg U nivers mg tablet 3-07 by mouth ity of 18:54: daily. [address] POTASSIUM Yes 2{tbl} Take 2 Univ ers GLUCONATE 3-07 Tabs by ity of ORAL 18:54: mouth 2 [place] [address] (two) Medical times [place] daily. aspirin 81 Yes 81mg Take 81 mg U nivers mg tablet 3-07 by mouth ity of 18:54: daily. [address] POTASSIUM Yes 2{tbl} Take 2 Univ ers GLUCONATE 3-07 Tabs by ity of ORAL 18:54: mouth 2 [place] [address] (two) Medical times [place] daily. aspirin 81 Yes 81mg Take 81 mg U nivers mg tablet 3-07 by mouth ity of 18:54: daily. [address] POTASSIUM Yes 2{tbl} Take 2 Univ ers GLUCONATE 3-07 Tabs by ity of ORAL 18:54: mouth 2 [place] [address] ([facility]) [facility] times [place] daily. aspirin 81 Yes 81mg Take 81 mg U nivers mg tablet 3-07 by mouth ity of 18:54: daily. [address] ISOSORBIDE Yes 30mg Take 30 mg U nivers ORAL 3-07 by mouth ity of 18:54: daily. [address] clopidogrel Yes 75mg Take 75 mg Univers (PLAVIX) 75 3-07 by mouth ity of mg tablet 18:54: daily. [address] atenolol Yes 25mg Take 25 mg Uni vers (TENORMIN) 3-07 by mouth 2 ity of 25 mg 18:54: (two) [place] tablet 42 times Medical daily. [place] atenolol Yes 25mg Take 25 mg Uni vers (TENORMIN) 3-07 by mouth 2 ity of 25 mg 18:54: (two) [place] tablet 42 times Medical daily. [place] atenolol Yes 25mg Take 25 mg Uni vers (TENORMIN) 3-07 by mouth 2 ity of 25 mg 18:54: (two) [place] tablet 42 times Medical daily. [place] atenolol Yes 25mg Take 25 mg Uni vers (TENORMIN) 3-07 by mouth 2 ity of 25 mg 18:54: (two) [place] tablet 42 times Medical daily. Branch atenolol Yes 25mg Take 25 mg Uni vers (TENORMIN) 3-07 by mouth 2 ity of 25 mg 18:54: (two) [place] tablet 42 times Medical daily. Branch lisinopril Yes 5mg Take 5 mg Un shahram (ZESTRIL) 5 3-07 by mouth ity of mg tablet 18:54: daily. [address] Crestor Crestor Yes Denny 1 tablet Com mon Abdalla [facility] Meloxicam Meloxicam Yes Denny 1 tablet Common Abdalla Spirit [facility] Aspir-81 Aspir-81 Yes Denny 1 [address] ommon [address]alla [facility] Alendronate Alendronate Yes Denny 1 tablet Common Sodium Sodium Abdalla 30 minutes Spir it before the [facility] first food, LuKimeltu beverage Medical or Center medicine of the day with plain water Xopenex Xopenex Yes Denny 3 ml [facility] Gabapentin Gabapentin Yes Denny 1 capsule [facility] Meloxicam Meloxicam Yes Denny TAKE 1 C ommon Abdalla TABLET Spirit EVERY DAY [facility] Metoprolol Metoprolol Yes Denny TAKE 1 Common Succinate Succinate Abdalla TABLET Sp luba ER ER EVERY DAY [facility] Vital Signs Vital Name Observation Time Observation Value Comments Source Systolic blood 2019-12-05 17:30:00 170 mm[Hg] Univer sity of pressure [facility] Diastolic blood 2019-12-05 17:30:00 66 mm[Hg] Unive rsity of pressure [facility] Heart rate 2019-12-05 17:30:00 64 /min [facility] Respiratory rate 2019-12-05 17:30:00 15 /min [facility] Oxygen saturation in 2019-12-05 17:30:00 97 /min [facility] Arterial blood by [facility] Pulse oximetry Branch Body temperature 2019-12-05 17:14:00 36.06 Gabbi [facility] Body height 2019-12-04 13:00:00 149.9 cm [facility] Body weight 2019-12-04 13:00:00 49.896 kg [facility] [place] [facility] BMI 2019-12-04 13:00:00 22.22 kg/m2 [facility] [place] [facility] Systolic blood 2019-12-05 17:30:00 170 mm[Hg] Univer sity of pressure [place] [facility] Diastolic blood 2019-12-05 17:30:00 66 mm[Hg] Unive rsity of pressure [place] [facility] Heart rate 2019-12-05 17:30:00 64 /min [facility] [place] [facility] Respiratory rate 2019-12-05 17:30:00 15 /min [facility] [place] [facility] Oxygen saturation in 2019-12-05 17:30:00 97 /min University of Arterial blood by [place] Palette prashant Pulse oximetry Branch Body temperature 2019-12-05 17:14:00 36.06 Gabbi [facility] [place] [facility] Body height 2019-12-04 13:00:00 149.9 cm [facility] [place] [facility] Body weight 2019-12-04 13:00:00 49.896 kg [facility] [place] [facility] BMI 2019-12-04 13:00:00 22.22 kg/m2 [facility] [place] [facility] Respiratory rate 2019-12-05 17:09:00 15 /min [facility] [place] [facility] Respiratory rate 2019-12-05 17:09:00 15 /min [facility] [place] [facility] Systolic blood 2019-11-21 15:55:00 180 mm[Hg] Univer sity of pressure [place] [facility] Diastolic blood 2019-11-21 15:55:00 69 mm[Hg] Unive rsity of pressure [place] [facility] Heart rate 2019-11-21 15:55:00 60 /min [facility] [place] [facility] Respiratory rate 2019-11-21 15:55:00 17 /min [facility] [place] [facility] Oxygen saturation in 2019-11-21 15:55:00 98 /min University of Arterial blood by [place] Palette prashant Pulse oximetry Branch Body temperature 2019-11-21 15:20:00 36.56 Gabbi [facility] [place] [facility] Body height 2019-11-21 13:00:00 149.9 cm [facility] [place] [facility] Body weight 2019-11-21 13:00:00 49.896 kg [facility] [place] [facility] BMI 2019-11-21 13:00:00 22.22 kg/m2 Universi [facility] Systolic blood 2019-11-21 15:55:00 180 mm[Hg] Univer sity of pressure [facility] Diastolic blood 2019-11-21 15:55:00 69 mm[Hg] Unive rsity of pressure [facility] Heart rate 2019-11-21 15:55:00 60 /min [facility] Respiratory rate 2019-11-21 15:55:00 17 /min [facility] Oxygen saturation in 2019-11-21 15:55:00 98 /min [facility] Arterial blood by [facility] Pulse oximetry [place] Body temperature 2019-11-21 15:20:00 36.56 [facility] Body height 2019-11-21 13:00:00 149.9 cm [facility] Body weight 2019-11-21 13:00:00 49.896 kg [facility] BMI 2019-11-21 13:00:00 22.22 kg/m2 [facility] Procedures Procedure Date / Time Performing Clinician Source Performed CONSENT/REFUSAL FOR 2019-12-04 13:54:31 [facility] DIAGNOSIS AND TREATMENT [facility] ASSIGNMENT OF BENEFITS 2019-12-04 13:54:12 [facility] CBC WITH DIFFERENTIAL 2019-11-16 15:49:00 Greyson Moore [facility] CONSENT/REFUSAL FOR 2019-11-16 15:25:37 Doctor Unassigned, [facility] DIAGNOSIS AND TREATMENT [facility] ASSIGNMENT OF BENEFITS 2019-11-16 15:25:15 Doctor [facility]assigned, [facility] NOTICE OF BILLING 2019-11-16 15:24:47 Doctor Unadarienigned, [facility] PRACTICES FOR MEDICARE [facility] PATIENTS [facility] PATIENT FINANCIAL 2019-11-16 15:24:28 Doctor Unassigned, [facility] POLICY [facility] NO SHOW OR MISSED 2019-11-16 15:24:05 Doctor Vernonigned, [facility] APPOINTMENT POLICY [facility] ACKNOWLEDGEMENT NOTICE OF PRIVACY 2019-11-16 15:23:43 Doctor Unassigned, [facility] PRACTICES [facility] CONSENT/REFUSAL FOR 2019-11-16 15:23:22 Doctor Unassigned, [facility] DIAGNOSIS AND TREATMENT [facility] ASSIGNMENT OF BENEFITS 2019-11-16 15:22:59 Doctor Unassigned, [facility] Encounters Start End Encounter Admission Attending Care Care Encounter Source Date/Time Date/Time Type Type Clinicians Facility Department ID 2021-11-13 Outpatient Abdalla, STLMLC STLMLC [id number] Common 08:45:02 [facility] 2021-11-09 Outpatient Abdalla, STLMLC STLMLC [id number] Common 13:41:[address] [facility] 2021-09-29 Outpatient Abdalla, STLMLC STLMLC [id number] Common 15:38:[address] [facility] 2021-08-12 Outpatient Abdalla, STLMLC STLMLC [id number] Common 14:21:[id number] [facility] 2021-08-12 Outpatient Abdalla, STLMLC STLMLC [id number] Common 14:00:[address] [facility] 2021-08-12 Outpatient Abdalla, STLMLC STLMLC [id number] Common 13:24:[address] [facility] 2021-08-12 Outpatient Abdalla, STLMLC STLMLC [id number] Common 12:41:[address] [facility] 2021-08-12 Outpatient Abdalla, STLMLC STLMLC [id number] Common 11:53:[address] [facility] 2021-08-12 Outpatient Abdalla, STLMLC STLMLC [id number] Common 11:50:[address] [facility] 2021-08-12 Outpatient Abdalla, STLMLC STLMLC [id number] Common 11:29:[address] [facility] 2021-08-12 Outpatient Abdalla, STLMLC STLMLC [id number] Common 11:27:[address] [facility] 2021-08-12 Outpatient Abdalla, STLMLC STLMLC [id number] Common 11:18:[address] [facility] 2021-08-12 Outpatient Abdalla, STLMLC STLMLC [id number] Common 11:03:[address] [facility] 2021-08-12 Outpatient Ariane Thomas STLMLC STLMLC [id number] Common 11:02:[address] [facility] 2021-05-14 [id number] Univers 21:11:39 [facility] 2021-05-14 [facility] [id number] Univers 19:37:31 [facility] 2021-11-12 2021-11-12 ambulatory STLMLC STLMLC [id number] Common 00:00:00 00:00:00 [facility] 2021-11-12 2021-11-12 ambulatory STLMLC STLMLC [id number] Common 00:00:00 00:00:00 [facility] 2021-09-25 2021-09-25 ambulatory STLMLC STLMLC [id number] Common 00:00:00 00:00:00 [facility] 2021-09-11 2021-09-11 ambulatory STLMLC STLMLC [id number] Common 00:00:00 00:00:00 [facility] 2021-09-02 2021-09-02 ambulatory STLMLC STLMLC [id number] Common 00:00:00 00:00:00 [facility] 2021-08-31 2021-08-31 ambulatory STLMLC STLMLC [id number] Common 00:00:00 00:00:00 [facility] 2021-04-28 2021-04-28 Outpatient STLMLC STLMLC [id number] Common 00:00:00 00:00:00 [facility] 2021-04-28 2021-04-28 Outpatient STLMLC STLMLC [id number] Common 00:00:00 00:00:00 [facility] 2021-04-28 2021-04-28 Outpatient STLMLC STLMLC [id number] Common 00:00:00 00:00:00 [facility] 2021-04-28 2021-04-28 Outpatient STLMLC STLMLC [id number] Common 00:00:00 00:00:00 [facility] 2021-01-26 2021-01-26 Outpatient STLMLC STLMLC [id number] Common 00:00:00 00:00:00 [facility] 2021-01-13 2021-01-13 Outpatient STLMLC STLMLC [id number] Common 00:00:00 00:00:00 [facility] 2020-10-27 2020-10-27 Outpatient STLMLC STLMLC [id number] Common 00:00:00 00:00:00 [facility] 2020-10-02 2020-10-02 Outpatient STLMLC STLMLC [id number] Common 00:00:00 00:00:00 [facility] 2020-09-30 2020-09-30 Outpatient STLMLC STLMLC [id number] Common 00:00:00 00:00:00 [facility] 2020-09-28 2020-09-28 Outpatient STLMLC STLMLC [id number] Common 00:00:00 00:00:00 [facility] 2020-07-30 2020-07-30 Outpatient STLMLC STLMLC [id number] Common 00:00:00 00:00:00 [facility] 2020-07-28 2020-07-28 Outpatient STLMLC STLMLC [id number] Common 00:00:00 00:00:00 [facility] 2020-05-06 2020-05-06 Outpatient STLMLC STLMLC [id number] Common 00:00:00 00:00:00 [facility] 2020-04-24 2020-04-24 Outpatient STLMLC STLMLC [id number] Common 00:00:00 00:00:00 [facility] 2020-04-24 2020-04-24 Outpatient STLMLC STLMLC [id number] Common 00:00:00 00:00:00 [facility] 2020-04-17 2020-04-17 Outpatient STLMLC STLMLC [id number] Common 00:00:00 00:00:00 [facility] 2020-01-16 2020-01-16 Outpatient Frederick Mackt [id number] Common 08:45:00 08:45:00 [employer]IL[employer] [facility] 2019-12-05 2019-12-05 [facility] [id number] [facility] 10:22:39 13:03:00 Encounter Greyson Ulloa [id number] [place] [id number] [address] 2019-12-05 2019-12-05 [facility] [id number] 10:22:39 13:03:00 Encounter Greyson Ulloa 350.1.13.10 [place] 4.2.7.2.686 Surgical [id number] [place] [address] 2019-12-05 2019-12-05 Anesthesia Nidia Nolasco [facility] 1.2.840 .114 [id number] [facility] 11:44:00 12:10:00 Prabhakar Sandoval 350.1.13.10 [place] [id number] [facility] 020 [place] 2019-12-05 2019-12-05 Anesthesia Nidia Nolasco [facility] 1.2.840 .114 [id number] 11:44:00 12:10:00 Prabhakar Sandoval [id number] [place] 4.2.7.2.686 Surgical [id number] [place] 020 2019-12-04 2019-12-04 Laboratory Only, [facility] 1.2.840.114 [id number] 08:03:07 08:18:07 Only Test [place] 350.1.13.10 [place] 4.2.7.2.686 Professio [id number] [facility] 353 [facility] 2019-12-04 2019-12-04 Laboratory Only, [facility] Test [facility] 1.2.840. 114 [id number] Univers 08:03:07 08:18:07 Only Estuardo Greyson Wisdom Laila 350.1.13.1 0 [place] [id number] In dical [address] 2019-12-04 2019-12-04 Outpatient R [facility] [id number] Univers 08:15:00 08:15:00 [id number] ity [facility] 2019-12-04 2019-12-04 [facility] [id number] Univers 08:15:00 08:15:00 [facility] 2019-11-21 2019-11-21 [facility] [id number] 07:48:00 11:30:00 Encounter Greyson Are[place] 350.1.13.10 [place] 4.2.7.2.686 Surgical [id number] [place] [address] 2019-11-21 2019-11-21 [facility] [id number] Univers 07:48:00 11:30:00 Encounter Greyson Ulloa 350.1.13.10 [place] [id number] Med ical [address] 2019-11-20 2019-11-20 Outpatient R [facility] [id number] Univers 09:30:00 09:30:00 ity [facility] 2019-11-20 2019-11-20 Laboratory Nurse, [facility] 1.2.840.114 [id number] 08:56:58 09:07:43 Only General [place] 350.1.13.10 Surgery [place] 4.2.7.2.686 Professio [id number] [address] 2019-11-20 2019-11-20 Laboratory Nurse, [facility] General Surgery [facility] 1.2.840.114 [id number] Univers 08:56:58 09:07:43 Only Greyson Moore 350.1.13.1 0 [place] [id number] In dical nal [address] [facility] 2019-11-20 2019-11-20 Telephone [facility] 1.2.840.114 [id number] 00:00:00 00:00:00 Greyson Ulloa 350.1.13.10 [place] 4.2.7.2.686 Surgical [id number] [place] [address] 2019-11-20 2019-11-20 Telephone [facility] 1.2.840.114 [id number] [facility] 00:00:00 00:00:00 Greyson Ulloa 350.1.13.10 [place] [id number] [address] 2019-11-16 2019-11-16 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 Operator Alonzo, Adc Lab Main [facility] 1.2.8 40.114 [id number] Univers 10:33:59 10:48:59 Visit Greyson Moore 350.1.13.1 0 [place] [id number] In dical nal [address] [facility] 2019-11-16 2019-11-16 Outpatient R [facility] [id number] Univers 10:45:00 10:45:00 [id number] itrosina [facility] 2019-11-16 2019-11-16 [facility] [id number] Univers 10:45:00 10:45:00 GREYSON ity [facility] 2019-11-12 2019-11-12 Out[facility] [id number] Common 15:30:00 15:30:[address] [address] [facility] 2019-08-20 2019-08-20 Outpatient [facility] [id number] Common 14:48:00 14:48:[address] [facility] 2019-08-13 2019-08-13 Outpatient [facility] [id number] Common 15:30:00 15:30:[address] [facility] 2016-07-22 2016-07-22 [place] [id number] [place] 10:45:00 10:45:00 0916 [facility] Results Test Description Test Time Test Comments Results Result Comments Source CBC WITH DIFFERENTIAL 2019-11-16 15:56:00 Test Item Value Reference Range Interpretation Comme nts WBC (test code = 6690-2) See_Comment [A utomated message] The system which ge nerated this result transmit radha reference range: 4.30 - 1 1.10 10*3/?L. The reference r angela was not used to interpr et this result as normal/abnor mal. RBC (test code = 789-8) See_Comment [Au tomated message] The system which ge nerated this result transmit radha reference range: 3.93 - 5 .25 10*6/?L. The reference r angela was not used to interpr et this result as normal/abnor mal. HGB (test code = 718-7) 14.1 g/dL 11.6-15 HCT (test code = 4544-3) 42.3 % 35.7-45.2 MCV (test code = 787-2) 94.6 fL 80.6-95.5 MCH (test code = 785-6) 31.5 pg 25.9-32.8 MCHC (test code = 786-4) 33.3 g/dL 31.6-35.1 RDW-SD (test code = 04738-3) 46.0 fL 39-49.9 RDW-CV (test code = 788-0) 13.2 % 12-15.5 PLT (test code = 777-3) See_Comment [Au tomated message] The system which ge nerated this result transmit radha reference range: 166 - 35 8 10*3/?L. The reference range was not used to interpret th is result as normal/abnormal . MPV (test code = 97025-0) 11.8 fL 9.5-12.9 NRBC/100 WBC (test code = See_Comment [ Automated message] The [id number]) system which ge nerated this result transmit radha reference range: 0.0 - 10 .0 /100 WBCs. The reference r angela was not used to interpr et this result as normal/abnor mal. NRBC x10^3 (test code = <0.01 See_Comment [Au tomated message] The [id number]) system which ge nerated this result transmit radha reference range: 10*3/?L. The reference range was not u sed to interpret this result as normal/abnormal . GRAN MAT (NEUT) % (test code 57.0 % = 770-8) IMM GRAN % (test code = 0.40 % [id number]) LYMPH % (test code = 736-9) 29.6 % MONO % (test code = 5905-5) 9.6 % EOS % (test code = 713-8) 2.2 % BASO % (test code = 706-2) 1.2 % GRAN MAT x10^3(ANC) (test 5.49 10*3/uL 1.88-7.09 code = [id number]) IMM GRAN x10^3 (test code = 0.04 10*3/uL 0-0.06 [id number]) LYMPH x10^3 (test code = 2.86 10*3/uL 1.32-3.29 731-0) MONO x10^3 (test code = 0.93 10*3/uL 0.33-0.92 H 742-7) EOS x10^3 (test code = 0.21 10*3/uL 0.03-0.39 711-2) BASO x10^3 (test code = 0.12 10*3/uL 0.01-0.07 H 704-7) Lab Interpretation (test Abnormal code = 76196-6) [facility] with [id number] 23:33:00 Test Item Value Reference Range Interpretation Comments WBC (test code = WBC) 10.6 K/cumm [...] 11.5-14.5 N Platelet Count (test code = 264 K/cumm 140-440 N PLTCT) MPV (test code = MPV) 10.7 fL [...] code = ALYMPH) 3.4 K/cumm 0.5-4.6 N [place] Abs (test code = AMONO) 0.7 K/cumm 0.0-1.2 N Eos Abs (test code = AEOS) 0.10 K/cumm 0.00-0.74 N Baso Abs (test code = ABASO) 0.1 K/cumm 0.00-0.21 N Lipid [id number] 23:22:00 Test Item Value Reference Range Interpretation Comments Cholesterol (test 136 mg/dL 0-200 N code = CHOL) Triglycerides (test 100 mg/dL 9-200 N code = TRIG) HDL (test code = 53 mg/dL 50-60 N HDL) Chol/HDL (test code 2.6 Ratio 0.0-4.4 N = CHOLPHDL) LDL, Calculated 63 mg/dL 0-130 N (NOTE)RISK O F HEART (test code = LDLC) DISEASEPu blished by [place] Heart AssociationAnal yte Optim al Boderline Increased RiskC HOL <200 200-239 >240TRI G <150 150-199 >200HDL Male: >60 <40HDL Female: >60 <50 LDL < 100 130-15 9 >160 LDL NEAR OPTIMAL IS 100- 129 VLDL (test code = 20 mg/dL 5-40 N VLDL) LDL/HDL (test code = 1 LDLPHDL) Comprehensive Metabolic [id number] 23:22:00 Test Item Value Reference Range Interpretation [...] ars ofage have not been validated by [place] MDRD study and [place] d be interpretedwith caution.eGFR Re sult Interpretation: eGFR > or = 60 is in t he Normal RangeeGF R < 60 may mean kidney diseaseeGFR < 1 5 may mean kidney failureRange s recommended by the National Kidney Foundation,http ://nkd ep.nih.gov
[2021-12-03] MEDS ORDERED: IBUPROFEN 400 MG TAB ONE (11:04)
[2021-12-03] MEDS ORDERED: ACETAMINOPHEN 325 MG TABLET ONE (11:04)
--- NOTE | 2021-12-03 11:36 | RAD REPORT ---
EXAM DESCRIPTION: RAD - Chest Single View - 12/03/2021 11:20 am CLINICAL HISTORY: Cough, headache, chest pain COMPARISON: Portable 09/29/2020 TECHNIQUE: AP portable chest image was obtained 12/03/2021 11:20 am . FINDINGS: No new mass or consolidations seen. Fibrotic lung pattern present may be slightly more pro nounced in medial left base. Chronic pattern could mask early edema or infiltrate. No hilar mass or lymphadenopathy seen. Heart and vasculature are normal. No measurable pleural effusi on and no pneumothorax. No acute bone finding. Prominent degenerative and scoliotic changes are prese nt in the spine. No acute aortic findings suspected. IMPRESSION: Baseline fibrotic lung pattern with interstitial markings slightly more pronounced in th e medial left base. Mild or early interstitial infiltrate is not excluded and correlation is needed with any findings loc alizing to the left base.
--- NOTE | 2021-12-03 12:54 | ER ---
Nurse's Notes [facility] Name: Germania Bañuelos Age: 71 yrs Sex: Female : 1950 Arrival Date: 12/03/2021 Time: 09:43 Bed 5 Private MD: Denny Abdalla Diagnosis: Coronavirus infection, unspecified;Fever, unspecified;Acute upper respiratory infection, unspecified;COPD/ Chronic obstructive pulmonary disease with (acute) exacerbation Presentation: 12/03 09:50 Onset of symptoms was November 25, 2021. iw 10:15 Coronavirus screen: At this time, the client does not indicate any symptoms associated iw with coronavirus-19. Ebola Screen: Patient negative for fever greater than or equal to 101.5 degrees Fahrenheit, and additional compatible Ebola Virus Disease symptoms Patient denies exposure to infectious person. Patient denies travel to an Ebola-affected area in the 21 days before illness onset. No symptoms or risks identified at this time. Initial Sepsis Screen: Does the patient meet any 2 criteria? No. Patient's initial sepsis screen is negative. Does the patient have a suspected source of infection? No. Patient's initial sepsis screen is negative. Risk Assessment: Do you want to hurt yourself or someone else? Patient reports no desire to harm self or others. 10:15 Chief complaint: Patient states: Headache, nausea, body aches, cough, chest pain when iw coughing. 10:15 Method Of Arrival: Ambulatory iw 10:15 Acuity: MIGUEL 4 jl7 Historical: - Allergies: 10:16 Demerol; iw 10:16 dorvon; iw 10:16 Tamiflu; iw - PMHx: 10:16 COPD; Hyperlipidemia; Hypertension; shoulder pain; iw - Immunization history:: Adult Immunizations unknown. - Social history:: Smoking status: unknown. Screenin:04 Abuse screen: Denies threats or abuse. Denies injuries from another. Nutritional jl7 screening: No deficits noted. Tuberculosis screening: No symptoms or risk factors identified. Fall Risk None identified. Assessment: 11:04 General: Appears in no apparent distress. uncomfortable, Behavior is calm, cooperative, jl7 appropriate for age. Pain: Complains of pain in body aches Pain does not radiate. Pain currently is 8.5 out of 10 on a pain scale. Pain began 2-3 days ago. Is continuous. Cardiovascular: Heart tones S1 S2 present Patient's skin is warm and dry. Rhythm is regular. Respiratory: Reports cough that is non-productive, Airway is patent Respiratory effort is even, unlabored, Respiratory pattern is regular, symmetrical, Breath sounds are clear bilaterally. Derm: Skin is pink, warm \T\ dry. Vital Signs: 10:15 BP 179 / 78; Pulse 100; Resp 20 S; Temp 100.0; Pulse Ox 99% on R/A; iw 11:03 BP 157 / 93; Pulse 98; Resp 15; Temp 99.9; Pulse Ox 100% ; Weight 46.72 kg; jl7 12:11 BP 148 / 73; Pulse 90; Resp 15; Pulse Ox 97% ; jl7 ED Course: 09:43 Patient arrived in ED. am2 09:43 Denny Abdalla DO is Private Physician. am2 09:52 Triage completed. iw 10:16 Arm band placed on. iw 10:30 COVID swab sent to lab. Flu and/or RSV swab sent to lab. jl7 10:51 Sridhar Wilcox MD is Attending Physician. margie 10:52 Bruno Shaver RN is Primary Nurse. jl7 11:04 Patient has correct armband on for positive identification. Pulse ox on. NIBP on. jl7 11:04 Patient maintains SpO2 saturation greater than 95% on room air. jl7 11:22 CXR XRAY In Process Unspecified. EDMS 12:52 Denny Abdalla DO is Referral Physician. margie 12:54 Sandro Cole MD is Referral Physician. [facility] 13:15 No provider procedures requiring assistance completed. Patient did not have IV access jl7 during this emergency room visit. Administered Medications: 11:03 Drug: Motrin (ibuprofen) 400 mg Route: PO; jl7 11:45 Follow up: Response: No adverse reaction; Pain is decreased jl7 11:03 Drug: Tylenol 650 mg Route: PO; jl7 11:45 Follow up: Response: No adverse reaction; Pain is decreased jl7 13:14 Drug: Zithromax (azithromycin) 500 mg Route: PO; jl7 13:14 Follow up: Response: Medication administered at discharge. jl7 Medication: 11:04 VIS not applicable for this client. jl7 Outcome: 12:53 Discharge ordered by . margie 13:15 Discharged to home ambulatory. pushpa 13:15 Condition: stable 13:15 Discharge instructions given to patient, Instructed on discharge instructions, follow up and referral plans. medication usage, Demonstrated understanding of instructions, follow-up care, medications, Prescriptions given X 4. 13:15 Patient left the ED. jl7 Signatures: Dispatcher [employer] EDMS Srihdar Wilcox MD MD cha Williams, Irene, RN Bruno Maravilla RN DEBRA [email or web address] Macie Summers am2 Corrections: (The following items were deleted from the chart) 09:50 Chief complaint: Patient states: fell Tuesday night a week ago after getting up iw from the commode, fell to her back , has had pain under left ribs since then, feels her stomach getting real hard and is worried she may have a collapsed lung iw 09:50 BP 156 / 110; Pulse 82bpm; Resp 18bpm; Spontaneous; Pulse Ox 98% RA; Temp 97.5F; iw iw 09:50 Acuity: MIGUEL 3 iw iw 0958 09:50 Method Of Arrival: Wheelchair iw 09:50 Ebola Screen: Patient negative for fever greater than or equal to 101.5 degrees iw Fahrenheit, and additional compatible Ebola Virus Disease symptoms Patient denies exposure to infectious person. Patient denies travel to an Ebola-affected area in the 21 days before illness onset. No symptoms or risks identified at this time. iw :50 Initial Sepsis Screen: Does the patient meet any 2 criteria? No. Patient's iw initial sepsis screen is negative. Does the patient have a suspected source of infection? No. Patient's initial sepsis screen is negative. iw :50 Risk Assessment: Do you want to hurt yourself or someone else? Patient reports no iw desire to harm self or others. iw :50 Coronavirus screen: At this time, the client does not indicate any symptoms iw associated with coronavirus-19. iw 10:15 Resp 20bpm; Spontaneous; Pulse Ox 99% RA; Temp 100.0F; iw iw
--- NOTE | 2021-12-03 12:55 | EDPHYS ---
Physician Documentation [facility] Name: Germania Bañuelos Age: 71 yrs Sex: Female : 1950 Arrival Date: 12/03/2021 Time: 09:43 Bed 5 Private MD: Rm [facility] ED Physician Sridhar Wilcox HPI: 12/03 12:46 This 71 yrs old Female presents to ER via Ambulatory with complaints of margie Cough, bodyaches, Breathing Difficulty. 12:46 The patient or guardian reports airway noise, cough, difficulty breathing, flu margie symptoms, arthralgias, low-grade fever. Onset: The symptoms/episode began/occurred 2 day(s) ago. Severity of symptoms: At their worst the symptoms were mild, in the emergency department the symptoms are unchanged. Modifying factors: The symptoms are alleviated by. Associated signs and symptoms: The patient has no apparent associated signs or symptoms. The patient has not experienced similar symptoms in the past. Historical: - Allergies: 10:16 Demerol; iw 10:16 dorvon; iw 10:16 Tamiflu; iw - PMHx: 10:16 COPD; Hyperlipidemia; Hypertension; shoulder pain; iw - Immunization history:: Adult Immunizations unknown. - Social history:: Smoking status: unknown. ROS: 12:47 Constitutional: Negative for fever, chills, and weight loss, Eyes: Negative for injury, margie pain, redness, and discharge, ENT: Negative for injury, pain, and discharge, Neck: Negative for injury, pain, and swelling, Cardiovascular: Negative for chest pain, palpitations, and edema, Abdomen/GI: Negative for abdominal pain, nausea, vomiting, diarrhea, and constipation, Back: Negative for injury and pain, : Negative for injury, bleeding, discharge, and swelling, MS/Extremity: Negative for injury and deformity, Skin: Negative for injury, rash, and discoloration, Neuro: Negative for headache, weakness, numbness, tingling, and seizure, Psych: Negative for depression, anxiety, suicide ideation, homicidal ideation, and hallucinations, Allergy/Immunology: Negative for hives, rash, and allergies, Endocrine: Negative for neck swelling, polydipsia, polyuria, polyphagia, and marked weight changes, Hematologic/Lymphatic: Negative for swollen nodes, abnormal bleeding, and unusual bruising. 12:47 Respiratory: Positive for cough, shortness of breath. Exam: 12:47 Constitutional: This is a well developed, well nourished patient who is awake, alert, margie and in no acute distress. Head/Face: Normocephalic, atraumatic. Eyes: Pupils equal round and reactive to light, extra-ocular motions intact. Lids and lashes normal. Conjunctiva and sclera are non-icteric and not injected. Cornea within normal limits. Periorbital areas with no swelling, redness, or edema. ENT: Nares patent. No nasal discharge, no septal abnormalities noted. Tympanic membranes are normal and external auditory canals are clear. Oropharynx with no redness, swelling, or masses, exudates, or evidence of obstruction, uvula midline. Mucous membranes moist. Neck: Trachea midline, no thyromegaly or masses palpated, and no cervical lymphadenopathy. Supple, full range of motion without nuchal rigidity, or vertebral point tenderness. No Meningismus. Chest/axilla: Normal chest wall appearance and motion. Nontender with no deformity. No lesions are appreciated. Cardiovascular: Regular rate and rhythm with a normal S1 and S2. No gallops, murmurs, or rubs. Normal PMI, no JVD. No pulse deficits. Abdomen/GI: Soft, non-tender, with normal bowel sounds. No distension or tympany. No guarding or rebound. No evidence of tenderness throughout. Back: No spinal tenderness. No costovertebral tenderness. Full range of motion. Female : Normal external genitalia. Skin: Warm, dry with normal turgor. Normal color with no rashes, no lesions, and no evidence of cellulitis. MS/ Extremity: Pulses equal, no cyanosis. Neurovascular intact. Full, normal range of motion. Neuro: Awake and alert, GCS 15, oriented to person, place, time, and situation. Cranial nerves II-XII grossly intact. Motor strength 5/5 in all extremities. Sensory grossly intact. Cerebellar exam normal. Normal gait. Psych: Awake, alert, with orientation to person, place and time. Behavior, mood, and affect are within normal limits. 12:47 Respiratory: the patient does not display signs of respiratory distress, Respirations: normal, no acute changes, labored breathing, is not present, Breath sounds: are clear throughout, no bronchial sounds, no decreased breath sounds, no rales, rhonchi, no stridor, no wheezing, rales, are not appreciated, bronchial sounds, are not appreciated, decreased breath sounds, are not appreciated, rhonchi, are not appreciated, stridor, is not appreciated. Vital Signs: 10:15 BP 179 / 78; Pulse 100; Resp 20 S; Temp 100.0; Pulse Ox 99% on R/A; iw 11:03 BP 157 / 93; Pulse 98; Resp 15; Temp 99.9; Pulse Ox 100% ; Weight 46.72 kg; jl7 12:11 BP 148 / 73; Pulse 90; Resp 15; Pulse Ox 97% ; jl7 MDM: 10:51 Patient medically screened. margie 12:50 Differential diagnosis: asthma, Bronchitis CHF exacerbation, Chronic Obstructive margie Pulmonary Disease bronchitis, flu, URI. Antibiotic administration: The patient is discharged and will get outpatient antibiotics, Zithromax. The patient's Wells Deep Vein Thrombosis Score was calculated as follows: Total Score: 0-2 Pts- Low Risk. Differential Diagnosis: Obstructed Airway Bronchitis Influenza Upper Respiratory Infection Sinusitis Pharyngitis Otitis Media Allergic Rhinitis Asthma Exacerbation Pneumonia. The patient's pulmonary embolism risk score was calculated as follows: Total Score: 0-2 points. This patient was found to be at low risk for a pulmonary embolism by using the Well's assessment criteria. Immunization status: Pneumococcal vaccine: Influenza vaccine: Data reviewed: vital signs, nurses notes, lab test result(s), radiologic studies, plain films. Data interpreted: monitor tech: rate is 90 beats/min, rhythm is normal sinus rhythm, Pulse oximetry: on room air is 97 %. Test interpretation: by ED physician or midlevel provider: plain radiologic studies. Counseling: I had a detailed discussion with the patient and/or guardian regarding: the historical points, exam findings, and any diagnostic results supporting the discharge/admit diagnosis, lab results, radiology results, the need for outpatient follow up. 12/03 10:17 Order name: SARS-COV-2 RT PCR (Document "Date of Onset" if Symptomatic); Complete Time: iw 12:39 12/03 10:17 Order name: Flu; Complete Time: 12:39 iw 12/03 10:20 Order name: CXR XRAY; Complete Time: 12:39 iw Administered Medications: 11:03 Drug: Motrin (ibuprofen) 400 mg Route: PO; jl7 11:45 Follow up: Response: No adverse reaction; Pain is decreased jl7 11:03 Drug: Tylenol 650 mg Route: PO; jl7 11:45 Follow up: Response: No adverse reaction; Pain is decreased jl7 13:14 Drug: Zithromax (azithromycin) 500 mg Route: PO; jl7 13:14 Follow up: Response: Medication administered at discharge. jl7 Disposition Summary: 12/03/21 12:53 Discharge Ordered Location: Home margie Problem: new margie Symptoms: have improved margie Condition: Fair margie Diagnosis - Coronavirus infection, unspecified margie - Fever, unspecified margie - Acute upper respiratory infection, unspecified margie - COPD/ Chronic obstructive pulmonary disease with (acute) exacerbation margie Followup: margie - With: Denny Abdalla DO - When: 2 - 3 days - Reason: Recheck today's complaints, Continuance of care, Re-evaluation by your physician Followup: margie - With: Sandro Cole MD - When: 2 - 3 days - Reason: Recheck today's complaints, Continuance of care, Re-evaluation by your physician Discharge Instructions: - Discharge Summary Sheet margie - Chronic Obstructive Pulmonary Disease margie - Upper Respiratory Infection, Adult margie - Viral Respiratory Infection margie - Cool Mist Vaporizer margie - Upper Respiratory Infection, Adult, [id number] margie - Cough, Adult margie - COVID-19 margie - Aspirin and Your Heart margie Forms: - Medication Reconciliation Form margie - Thank You Letter margie - Antibiotic Education margie - Prescription Opioid Use margie Prescriptions: - Albuterol Sulfate 2.5 mg /3 mL (0.083 %) Inhalation Solution for Nebulization - inhale 1 unit by NEBULIZATION route every 8 hours As needed; 1 box; Refills: 0, margie Product Selection Permitted - Zithromax Z-Brandon 250 mg Oral Tablet - take 1 tablet by ORAL route as directed for 5 days Day 1 - take two (2) tablets margie one time. Day 2, 3, 4 , 5 take one (1) tablet once daily.; 6 tablet; Refills: 0, Product Selection Permitted - Medrol (Brandon) 4 mg Oral Tablets, Dose Pack - take 1 tablet by ORAL route as directed - follow package instructions; 1 margie packet; Refills: 0, Product Selection Permitted - albuterol sulfate 90 mcg/actuation Inhalation HFA aerosol inhaler - inhale 2 puff by INHALATION route every 6 hours; 1 Pump; Refills: 0, Product margie Selection Permitted Signatures: Dispatcher [employer] Sridhar Zimmer MD MD cha Williams, Irene, RN RN iw Leal, Jahala, RN RN jl7
[2021-12-03] MEDS ORDERED: AZITHROMYCIN 250 MG TAB ONE (13:11)
[2021-12-03 13:22] VITALS: TEMP 99.9
[2021-12-03 13:24] VITALS: BP 148/73; O2SAT 97
== END 2021-12-03 13:15 | disposition home or self-care (01) ==
LOC: ER 09:41
DX: U07.1 COVID-19 (principal); J06.9 Acute upper respiratory infection, unspecified; J44.1 Chronic obstructive pulmonary disease with (acute) exacerbation; I10 Essential (primary) hypertension; Z88.5 Allergy status to narcotic agent; Z88.8 Allergy status to other drugs, medicaments and biological substances
CPT/HCPCS: 87804 ×2; 71045; 99284; U0003

== ENCOUNTER 2022-05-08 04:05 | Emergency (ER) | payer OTHER ==
--- OUTSIDE RECORDS SUMMARY | 2022-05-08 04:13 | XMS REPORT | Continuity of Care Document ---
:1950 Author Organization [facility] t Address [address] [place] [address] Care Team Providers Name Role Phone JORGE ESPINOZA Primary Care Physician Unavailable Denny Abdalla Attending Clinician Unavailable Ariane Thomas Attending Clinician Unavailable GREYSON MOORE Attending Clinician Unavailable CANDICE Attending Clinician Unavailable Greyson Moore MD Attending Clinician Nidia Nolasco CRNA Attending Clinician Prabhakar Sandoval MD Attending Clinician Only, Adc Test Attending Clinician Unavailable Nurse, Adc General Surgery Attending Clinician Unavailable Pob, Adc Lab Main Attending Clinician Unavailable JORGE ESPINOZA Attending Clinician Unavailable Marcia Attending Clinician Unavailable GREYSON MOORE Admitting Clinician Unavailable CANDICE Admitting Clinician Unavailable Greyson Moore MD Admitting Clinician JORGE ESPINOZA Admitting Clinician Unavailable Marcia Admitting Clinician Unavailable Payers Payer Name Policy Type Policy Number Effective Date Expiration Date S ource HUMANA CHOICE [id number] 2019 00:00:00 AARP MCR 53 [id number] 2021 Common ADVANTAGE WELLMED 00:00:00 [facility] 53 [id number] 2020 Commo n MEDICARE 00:00:00 [facility] PayParrot [facility] [id number] - CARE IMPROVEMENT PLUS - REGIONAL (MEDICARE REPLACEMENT PPO) MEDICARE B-[place]: [id number] 2011 NOVChogger 00:00:00 Problems Condition Condition Condition Status Onset Resolution Last Treating Co mments Source Name Details Category Date Date Treatment Clinician Date Low back Low back Problem Active Commo n pain pain, Spirit unspecifie - [facility] [id number] Mixed Problem Active Common hyperlipid Spirit emia [facility] [id number] Low back Problem Active Comm on pain [facility] COPD - COPD Problem Active Common Chronic (chronic Spirit obstructiv obstructiv - [facility] e e pulmonary pulmonary [facility] s disease disease) [facility] [id number] Lymphocyto Problem Active Com mon sis [facility] [id number] Other Problem Active Common chronic Spirit pain [facility] [id number] Malignant Problem Active Comm on hypertensi Spirit ve urgency [facility] Hypertensi Hypertensi Problem Active C ommon on on Spirit 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 No known No known Disease Unive rs active active ity of problems problems [place] [facility] Allergies, Adverse Reactions, Alerts Allergy Allergy Status [...] Active Hallucinates Un shahram HENE HCL INGREDI 09-21 ity of 00:00: [place] [facility] MEPERIDI DRUG Active Hallucinates Un shahram NE HCL INGREDI 09-21 ity of 00:00: [place] [facility] Propoxyp Propensi Active Hallucinatio Univers hene Hcl ty to ns 07 ity of adverse 00:00: [place] reaction Medical s Branch Meperidi Propensi Active Hallucinatio Univers ne Hcl ty to ns 307 ity of adverse 00:00: [place] reaction [facility] Branch oseltami oseltami Active Unknown Commo n vir vir [facility] meperidi meperidi Active Unknown Commo n ne ne [facility] [id number] Drug Active Unknown Common allergy [facility] Social History Social Habit Start Date Stop Date Quantity Comments Source History of Tobacco Current Smoker Co mmon [facility] - [facility] Use [facility] Sex Assigned At Common Sp luba - [facility] Exposure to Not sure [facility] SARS-[facility] Smoking Status Start Date Stop Date Source Unknown if ever smoked [facility] Current Smoker 2022-03-25 00:00:00 Common Spiri [facility] Medications Ordered Filled Start Stop Current Ordering Indication Dosage Frequency Signature Comments Components Source Medication Medication Date Date Medication? Clinician (SIG) Name Name Acetaminoph Acetaminoph No 1{table Acetaminop en-Codeine en-Codeine 3-15 t_as_ne hen-Codein 300-30 MG 300-30 MG 00:00: eded} e 300-30 00 MG Acetaminoph Acetaminoph 2021-0 No 1{table Acetaminop en-Codeine en-Codeine 3-15 t_as_ne hen-Codein 300-30 MG 300-30 MG 00:00: eded} e 300-30 00 MG Acetaminoph Acetaminoph 2021-0 No 1{table Acetaminop en-Codeine en-Codeine 3-15 t_as_ne hen-Codein 300-30 MG 300-30 MG 00:00: eded} e 300-30 00 MG Acetaminoph Acetaminoph 2022-0 No 1{table Acetaminop en-Codeine en-Codeine 3-15 t_as_ne hen-Codein 300-30 MG 300-30 MG 00:00: eded} e 300-30 00 MG Acetaminoph Acetaminoph 2022-0 No 1{table Acetaminop en-Codeine en-Codeine 2-16 t_as_ne hen-Codein 300-30 MG 300-30 MG 00:00: eded} e 300-30 00 MG Acetaminoph Acetaminoph 2022-0 No 1{table Acetaminop en-Codeine en-Codeine 2-16 t_as_ne hen-Codein 300-30 MG 300-30 MG 00:00: eded} e 300-30 00 MG Acetaminoph Acetaminoph 2022-0 No 1{table Acetaminop en-Codeine en-Codeine 2-16 t_as_ne hen-Codein 300-30 MG 300-30 MG 00:00: eded} e 300-30 00 MG lisinopril 2020-0 Yes 5mg Take 5 mg Un shahram (ZESTRIL) 5 5-20 by mouth ity of mg tablet 20:06: daily. [address] atenolol 2020-0 Yes 25mg Take 25 mg Uni vers (TENORMIN) 5-20 by mouth 2 ity of 25 mg 20:06: (two) [place] tablet 53 times Medical daily. Branch ISOSORBIDE 2020-0 Yes 30mg Take 30 mg U nivers ORAL 5-20 by mouth ity of 20:06: daily. [address] clopidogrel 2020-0 Yes 75mg Take 75 mg Univers (PLAVIX) 75 5-20 by mouth ity of mg tablet 20:06: daily. [address] Branch amLODIPine 2020-0 Yes 10mg Take 10 mg U nivers (NORVASC) 5-20 by mouth ity of 10 mg 20:06: daily. [address] POTASSIUM 2020-0 Yes 2{tbl} Take 2 Univ ers GLUCONATE 5-20 Tabs by ity of ORAL 20:06: mouth 2 [place] [address] (two) Medical times Branch daily. aspirin 81 2020-0 Yes 81mg Take 81 mg U nivers mg tablet 5-20 by mouth ity of 20:06: daily. [place] [address] Medical Branch metoprolol 2020-0 Yes 25mg Take 25 mg U nivers tartrate 25 5-20 by mouth 2 it y of mg tablet 20:06: (two) [place] [address] times Medical daily. Branch ergocalcife 2020-0 Yes Take by Uni vers rol, 5-20 mouth. ity of vitamin D2, 20:06: [place] (VITAMIN D 53 Medical ORAL) Branch lisinopril 2020-0 Yes 5mg Take 5 mg Un shahram (ZESTRIL) 5 5-20 by mouth ity of mg tablet 20:06: daily. [place] [address] Medical Branch atenolol 2020-0 Yes 25mg Take 25 mg Uni vers (TENORMIN) 5-20 by mouth 2 ity of 25 mg 20:06: (two) [place] tablet 53 times Medical daily. Branch ISOSORBIDE 2020-0 Yes 30mg Take 30 mg U nivers ORAL 5-20 by mouth ity of 20:06: daily. [place] [address] Medical Branch clopidogrel 2020-0 Yes 75mg Take 75 mg Univers (PLAVIX) 75 5-20 by mouth ity of mg tablet 20:06: daily. [place] [address] Medical Branch amLODIPine 2020-0 Yes 10mg Take 10 mg U nivers (NORVASC) 5-20 by mouth ity of 10 mg 20:06: daily. [place] [address] Medical Branch POTASSIUM 2020-0 Yes 2{tbl} Take 2 Univ ers GLUCONATE 5-20 Tabs by ity of ORAL 20:06: mouth 2 [place] [address] (two) Medical times Branch daily. aspirin 81 2020-0 Yes 81mg Take 81 mg U nivers mg tablet 5-20 by mouth ity of 20:06: daily. [place] [address] Medical Branch metoprolol 2020-0 Yes 25mg Take 25 mg U nivers tartrate 25 5-20 by mouth 2 it y of mg tablet 20:06: (two) [place] [address] times Medical daily. Branch ergocalcife 2020-0 Yes Take by Uni vers rol, 5-20 mouth. ity of vitamin D2, 20:06: [place] (VITAMIN D 53 Medical ORAL) Branch lactated 2020-0 Yes 500mL at 75 Univers ringers IV 5-20 mL/hr, 500 ity of infusion 17:30: mL, IV [place] 500 mL 00 Infusion, Medical CONTINUOUS Branch , Starting 12/05/19 at 1230, Until Discontinu ed, Routine, PACU sodium 2020-0 Yes PRN, Univers chloride 5-20 Starting ity of (NS) 17:03: Tue [place] injection 12/05/19 at [facility] 1203, Branch Until Discontinu ed, Routine, Intra-op lidocaine-e 2020-0 Yes PRN, Univer s pinephrine 5-20 Starting ity o f (XYLOCAINE 17:03: Tue W/EPINEPHRI 12/05/19 at Tn dical NE) 2 1203, Branch %-1:200,000 Until injection Discontinu ed, Routine, Intra-op neomycin-po 2020-0 Yes PRN, Univer s lymyxin-dex 5-20 Starting ity of amethasone 17:01: Tue (MAXITROL) 12/05/19 at [facility] ical 3.5 1201, [place] mg/g-10,000 Until unit/g-0.1 Discontinu % ed, ophthalmic Routine, ointment Intra-op gentamicin 2020-0 Yes PRN, Univers injection 5-20 Starting ity of 17:00: Wed [place] 12/05/19 at Medical 1200, Branch Until Discontinu ed, LASHONDA, Intra-op water for 2020-0 Yes PRN, Univers irrigation 5-20 Starting ity o f irrigation 16:55: Tue [place] solution 12/05/19 at Medic al 1155, Branch Until Discontinu ed, Routine, Intra-op Hyaluronida 2020-0 Yes [facility], [facility] 5-20 Starting ity of Recomb. 16:50: Tue (HYLENEX) 12/05/19 at [facility] injection 1150, Branch Until Discontinu ed, Routine, [...] [place] 00 :01 PRN, Medical Starting Branch Tue12/05/19 at 1144, Until Tue12/05/19 at 1211, Routine, Intra-op EPINEPHrine 2020-0 Yes PRN, Univer s 1:1,000 (1 5-20 Starting ity o f mg/mL) 16:36: Tue (ADRENALIN) 12/05/19 at Tn dical injection 1136, Branch Until Discontinu ed, Routine, Intra-op DUOVISC 2020-0 Yes PRN, Univers (DUOVISC 5-20 Starting ity of VISCO 16:36: Tue ELASTIC) 3 12/05/19 at [facility] ical %-4 %(0.5 1136, Branch mL) 1 % Until (0.55 mL) Discontinu intraocular ed, injection Routine, Intra-op dexamethaso 2020-0 Yes PRN, Univer s ne 5-20 Starting ity of (DECADRON 16:36: Tue PHOSPHATE) 12/05/19 at [facility] ical injection 1136, Branch Until Discontinu ed, Routine, Intra-op ceFAZolin 2020-0 Yes PRN, Univers (ANCEF) 5-20 Starting ity of injection 16:36: Tue12/05/19 at Medical 1136, Branch Until Discontinu ed, LASHONDA, Intra-op carbachoL 2020-0 Yes PRN, Univers (MIOSTAT) 5-20 Starting ity of 0.01 % 16:36: Tue intraocular 12/05/19 at Tn dical injection 1136, Branch Until Discontinu ed, Routine, Intra-op bupivacaine 2020-0 Yes PRN, Univer s (preserv 5-20 Starting ity of free) 16:35: Tue (SENSORCAIN 12/05/19 at Tn dical E MPF) 0.75 1135, Branch % (7.5 Until mg/mL) Discontinu injection ed, Routine, Intra-op balanced 2020-0 Yes PRN, Univers salt irrig 5-20 Starting ity o f soln comb1 16:35: Tue (BSS PLUS) 00 20 at [facility] ica ophthalmic 1135, Branch solution Until 500 mL bag Discontinu ed, Routine, Intra-op mydriatic 2020-0 2020- No .5mL 0.5 mL, [facility] ers #5 5-20 05-20 Left Eye, ity of ophthalmic 15:30: 15:39 ONCE, 1 [place] as solution 00 :00 dose, Wed Medica l 0.5 mL 12/05/19 at Branch syringe 1030, Routine, DSU Pre-op lactated 2020-0 2020- No 500mL at 20 [facility] 5-20 05-20 mL/hr, 500 it y of infusion 15:30: 15:39 mL, IV [place] 500 mL 00 :00 Infusion, Medical ONCE, 1 Branch dose, Tue12/05/19 at 1030, Routine, DSU Pre-op clopidogrel 2020-0 Yes 75mg Take 75 mg Univers (PLAVIX) 75 5-19 by mouth ity of mg tablet 13:18: daily. [address] lisinopril 2020-0 Yes 5mg Take 5 mg Un shahram (ZESTRIL) 5 5-06 by mouth ity of mg tablet 18:51: daily. [address] atenolol 2020-0 Yes 25mg Take 25 mg Uni vers (TENORMIN) 5-06 by mouth 2 ity of 25 mg 18:51: (two) [place] tablet times [facility] daily. [place] ISOSORBIDE 2020-0 Yes 30mg Take 30 mg U nivers ORAL 5-06 by mouth ity of 18:51: daily. [address] amLODIPine 2020-0 Yes 10mg Take 10 mg U nivers (NORVASC) 5-06 by mouth ity of 10 mg 18:51: daily. [address] POTASSIUM 2020-0 Yes 2{tbl} Take 2 [facility] ers GLUCONATE 5-06 Tabs by ity of ORAL 18:51: mouth 2 [place] [address] (two) Medical times Branch daily. aspirin 81 2020-0 Yes 81mg Take 81 mg U nivers mg tablet 5-06 by mouth ity of 18:51: daily. [address] metoprolol 2020-0 Yes 25mg Take 25 mg U nivers tartrate 25 5-06 by mouth 2 it y of mg tablet 18:51: (two) [place] 29 times Medical daily. Branch ergocalcife 2020-0 Yes Take by Uni vers rol, 5-06 mouth. ity of vitamin D2, 18:51: [place] (VITAMIN D 29 Medical ORAL) Branch lisinopril 2020-0 Yes 5mg Take 5 mg Un shahram (ZESTRIL) 5 5-06 by mouth ity of mg tablet 18:51: daily. [address] Branch atenolol 2020-0 Yes 25mg Take 25 mg Uni vers (TENORMIN) 5-06 by mouth 2 ity of 25 mg 18:51: (two) [place] tablet 29 times Medical daily. Branch ISOSORBIDE 2020-0 Yes 30mg Take 30 mg U nivers ORAL 5-06 by mouth ity of 18:51: daily. [address] Branch clopidogrel 2020-0 Yes 75mg Take 75 mg Univers (PLAVIX) 75 5-06 by mouth ity of mg tablet 18:51: daily. [address] Branch amLODIPine 2020-0 Yes 10mg Take 10 mg U nivers (NORVASC) 5-06 by mouth ity of 10 mg 18:51: daily. [place] [address] Medical Branch POTASSIUM 2020-0 Yes 2{tbl} Take 2 Univ ers GLUCONATE 5-06 Tabs by ity of ORAL 18:51: mouth 2 [place] [address] (two) Medical times Branch daily. aspirin 81 2020-0 Yes 81mg Take 81 mg U nivers mg tablet 5-06 by mouth ity of 18:51: daily. [address] Branch metoprolol 2020-0 Yes 25mg Take 25 mg U nivers tartrate 25 5-06 by mouth 2 it y of mg tablet 18:51: (two) [place] 29 times Medical daily. Branch ergocalcife 2020-0 Yes Take by Uni vers rol, 5-06 mouth. ity of vitamin D2, 18:51: [place] (VITAMIN D 29 Medical ORAL) Branch lactated 2020-0 Yes 1000mL at 75 Univer s ringers IV 5-06 mL/hr, ity of infusion 16:00: 1,000 mL, [place] 1,000 mL 00 IV Medical Infusion, Branch CONTINUOUS , Starting Tue11/21/19 at 1100, Until Discontinu ed, Routine, PACU water for 2020-0 Yes PRN, Univers irrigation 5-06 Starting ity o f irrigation 14:30: 11/21/19 [place] solution 00 at 0930, Medical Until Branch Discontinu ed, Routine, Intra-op sodium 2020-0 Yes PRN, Univers chloride - Starting ity of (NS) 14:29: Tue11/21/19 [place] injection 00 at 0929, Medica l Until Branch Discontinu ed, Routine, Intra-op neomycin-po 2020-0 Yes PRN, Univer s lymyxin-dex 11-20 Starting ity of amethasone 14:29: Tue11/21/19 [place] (MAXITROL) 00 at 0929, Medic al 3.5 Until Branch mg/g-10,000 Discontinu unit/g-0.1 ed, % Routine, ophthalmic Intra-op ointment lidocaine-e 2020-0 Yes PRN, Univ s pinephrine 11-20 Starting ity o f (XYLOCAINE 14:29: Tue11/21/19 [place] W/EPINEPHRI 00 at 09, [facility] NE) 2 Until Branch %-1:200,000 Discontinu injection ed, Routine, Intra-op Hyaluronida 2020-0 Yes PRN, Univer s se, Human 11-20 Starting ity of Recomb. 14:28: Tue11/21/19 [place] (HYLENEX) 00 at 0928, Medica l injection Until Branch Discontinu ed, Routine, Intra-op gentamicin 2020-0 Yes PRN, Univers injection 11-20 Starting ity of 14:28: Tue11/21/19 [place] 00 at 0928, Medical Until Branch Discontinu ed, LASHONDA, Intra-op EPINEPHrine 2020-0 Yes PRN, Univer s 1:1,000 (1 11-20 Starting ity o f mg/mL) 14:27: Tue11/21/19 [place] (ADRENALIN) 00 at 0927, [facility] injection Until Branch Discontinu ed, Routine, Intra-op DUOVISC 2020-0 Yes PRN, Univers (DUOVISC 11-20 Starting ity of VISCO 14:27: Tue11/21/19 [place] ELASTIC) 3 00 at 09, Medic al %-4 %(0.5 Until Branch mL) 1 % Discontinu (0.55 mL) ed, intraocular Routine, injection Intra-op dexamethaso 2020-0 Yes PRN, [facility] Starting ity of (DECADRON 14:27: Tue11/21/19 [place] [...] 11-20 Starting ity of free) 14:25: Tue11/21/19 [place] (SENSORCAIN 00 at 0925, Medi prashant E MPF) 0.75 Until Branch % (7.5 Discontinu mg/mL) ed, injection Routine, Intra-op balanced 2020-0 Yes PRN, Univers salt irrig 11-20 Starting ity o f soln comb1 14:25: Tue11/21/19 [place] (BSS PLUS) 00 at 0925, Medic al ophthalmic Until Branch solution Discontinu 500 mL bag ed, Routine, Intra-op lactated 2019-0 2020- No 1000mL at 50 [facility] 06 05-06 mL/hr, ity of infusion 14:15: 15:14 1,000 mL, Ch[place] as 1,000 mL 00 :00 IV Medical Infusion, Branch CONTINUOUS , Starting Tue11/21/19 at 0915, Until Tue11/21/19 at 1014, Routine, DSU Pre-op lisinopril 2020-0 Yes 5mg Take 5 mg Un shahram (ZESTRIL) 5 5-05 by mouth ity of mg tablet 13:44: daily. [address] ISOSORBIDE 2020-0 Yes 30mg Take 30 mg U nivers ORAL 5-05 by mouth ity of 13:44: daily. [address] clopidogrel 2020-0 Yes 75mg Take 75 mg Univers (PLAVIX) 75 5-05 by mouth ity of mg tablet 13:44: daily. [address] amLODIPine 2019-0 Yes 10mg Take 10 mg U nivers (NORVASC) 5-05 by mouth ity of 10 mg 13:44: daily. [place] tablet 30 [facility] lisinopril 2020-0 Yes 5mg Take 5 mg Un shahram (ZESTRIL) 5 5-05 by mouth ity of mg tablet 13:44: daily. [address] ISOSORBIDE 2020-0 Yes 30mg Take 30 mg U nivers ORAL 5-05 by mouth ity of 13:44: daily. [address] clopidogrel 2020-0 Yes 75mg Take 75 mg Univers (PLAVIX) 75 5-05 by mouth ity of mg tablet 13:44: daily. [address] amLODIPine 2020-0 Yes 10mg Take 10 mg U nivers (NORVASC) 5-05 by mouth ity of 10 mg 13:44: daily. [facility] 30 [facility] lisinopril 2020-0 Yes 5mg Take 5 mg Un shahram (ZESTRIL) 5 5-05 by mouth ity of mg tablet 13:44: daily. [address] ISOSORBIDE 2020-0 Yes 30mg Take 30 mg U nivers ORAL 5-05 by mouth ity of 13:44: daily. [address] clopidogrel 2020-0 Yes 75mg Take 75 mg Univers (PLAVIX) 75 5-05 by mouth ity of mg tablet 13:44: daily. [address] amLODIPine 2020-0 Yes 10mg Take 10 mg U nivers (NORVASC) 5-05 by mouth ity of 10 mg 13:44: daily. [facility] 30 [facility] lisinopril 2020-0 Yes 5mg Take 5 mg Un shahram (ZESTRIL) 5 5-05 by mouth ity of mg tablet 13:44: daily. [address] ISOSORBIDE 2020-0 Yes 30mg Take 30 mg U nivers ORAL 5-05 by mouth ity of 13:44: daily. [address] clopidogrel 2020-0 Yes 75mg Take 75 mg Univers (PLAVIX) 75 5-05 by mouth ity of mg tablet 13:44: daily. [address] amLODIPine 2020-0 Yes 10mg Take 10 mg U nivers (NORVASC) 5-05 by mouth ity of 10 mg 13:44: daily. [address] metoprolol 2020-0 Yes 25mg Take 25 mg U nivers tartrate 25 5-05 by mouth 2 it y of mg tablet 13:44: (two) [place] 29 times Medical daily. Branch ergocalcife Yes Take by Uni vers rol, 5-05 mouth. ity of vitamin D2, 13:44: [place] (VITAMIN D 29 Medical ORAL) Branch Metoprolol Metoprolol Yes Denny 1 capsule Common Succinate Succinate 2 Abdalla Spir it 00:00: - [facility] Metoprolol Metoprolol 2018-07 Yes Denny 1 tablet Common Tartrate Tartrate 08-08 Abdalla with food S pirit 00:00: - [facility] 00 [facility] amLODIPine Yes 10mg Take 10 mg U nivers (NORVASC) 3-07 by mouth ity of 10 mg 18:54: daily. [address] POTASSIUM Yes 2{tbl} Take 2 Univ ers GLUCONATE 3-07 Tabs by ity of ORAL 18:54: mouth 2 [place] [address] ([facility]) Medical times [place] daily. aspirin 81 Yes 81mg Take 81 mg U nivers mg tablet 3-07 by mouth ity of 18:54: daily. [address] POTASSIUM Yes 2{tbl} Take 2 Univ ers GLUCONATE 3-07 Tabs by ity of ORAL 18:54: mouth 2 [place] [address] ([facility]) Medical times [place] daily. aspirin 81 Yes 81mg Take 81 mg U nivers mg tablet 3-07 by mouth ity of 18:54: daily. [address] POTASSIUM Yes 2{tbl} Take 2 Univ ers GLUCONATE 3-07 Tabs by ity of ORAL 18:54: mouth 2 [place] [address] ([facility]) Medical times [place] daily. aspirin 81 Yes 81mg Take 81 mg U nivers mg tablet 3-07 by mouth ity of 18:54: daily. [address] POTASSIUM Yes 2{tbl} Take 2 Univ ers GLUCONATE 3-07 Tabs by ity of ORAL 18:54: mouth 2 [place] [address] ([facility]) Medical times [place] daily. aspirin 81 Yes 81mg Take 81 mg U nivers mg tablet 3-07 by mouth ity of 18:54: daily. [address] POTASSIUM 2012-0 Yes 2{tbl} Take 2 Univ ers GLUCONATE 3-07 Tabs by ity of ORAL 18:54: mouth 2 [place] [address] (two) Medical times Branch daily. aspirin 81 Yes 81mg Take 81 mg U nivers mg tablet 3-07 by mouth ity of 18:54: daily. [address] ISOSORBIDE Yes 30mg Take 30 mg U nivers ORAL 3-07 by mouth ity of 18:54: daily. [address] clopidogrel Yes 75mg Take 75 mg Univers (PLAVIX) 75 3-07 by mouth ity of mg tablet 18:54: daily. [address] atenolol Yes 25mg Take 25 mg [...] [place] tablet 42 times Medical daily. Branch lisinopril Yes 5mg Take 5 mg Un shahram (ZESTRIL) 5 3-07 by mouth ity of mg tablet 18:54: daily. [address] Crestor Crestor Yes Denny 1 tablet Com mon Abdalla [facility] Meloxicam Meloxicam Yes Denny 1 tablet Common Abdalla [facility] - [facility] Aspir-81 Aspir-81 Yes Denny 1 tablet C ommon Abdalla Spirit [facility] Alendronate Alendronate Yes Denny 1 tablet Common Sodium Sodium Abdalla 30 minutes Spir it before the - [facility] first [facility] or [place] medicine of the day with plain water Xopenex Xopenex Yes Denny 3 ml Common Abdalla [facility] Gabapentin Gabapentin Yes Denny 1 capsule Common Abdalla [facility] Meloxicam Meloxicam Yes Denny TAKE 1 C ommon Abdalla TABLET Spirit EVERY DAY - [facility] Metoprolol Metoprolol Yes Denny TAKE 1 Common Succinate Succinate Abdalla TABLET Sp luba ER ER EVERY DAY [facility] Alendronate Alendronate No Alendronat Sodium 70 Sodium 70 e Sodium MG MG 70 MG Gabapentin Gabapentin No 1{capsu BID Gabapentin 300 MG 300 MG le} 300 MG Metoprolol Metoprolol No 1{capsu QD Metoprolol Succinate Succinate le} Succinate 50 MG 50 MG 50 MG Meloxicam Meloxicam No 1{table Meloxicam 7.5 MG 7.5 MG t} 7.5 MG Crestor 40 Crestor 40 No 1{table QD Crestor 40 MG MG t} MG Crestor 40 Crestor 40 No 1{table QD Crestor 40 MG MG t} MG Meloxicam Meloxicam No 1{table Meloxicam 7.5 MG 7.5 MG t} 7.5 MG Alendronate Alendronate No Alendronat Sodium 70 Sodium 70 e Sodium MG MG 70 MG Metoprolol Metoprolol No Metoprolol Succinate Succinate Succinate ER 50 MG ER 50 MG ER 50 MG Aspir-81 81 Aspir-81 81 No 1{table QD Aspir-81 MG MG t} 81 MG Gabapentin Gabapentin No 1{capsu BID Gabapentin 300 MG 300 MG le} 300 MG Metoprolol Metoprolol No 1{capsu QD Metoprolol Succinate Succinate le} Succinate 50 MG 50 MG 50 MG Xopenex Xopenex No 3{ml} Xopenex 1.25 MG/3ML 1.25 MG/3ML 1.25 MG/3ML Alendronate Alendronate No Alendronat Sodium 70 Sodium 70 e Sodium MG MG 70 MG Gabapentin Gabapentin No 1{capsu BID Gabapentin 300 MG 300 MG le} 300 MG Metoprolol Metoprolol No 1{capsu QD Metoprolol Succinate Succinate le} Succinate 50 MG 50 MG 50 MG Meloxicam Meloxicam No 1{table Meloxicam 7.5 MG 7.5 MG t} 7.5 MG Crestor 40 Crestor 40 No 1{table QD Crestor 40 MG MG t} MG Crestor 40 Crestor 40 No 1{table QD Crestor 40 MG MG t} MG Meloxicam Meloxicam No 1{table Meloxicam 7.5 MG 7.5 MG t} 7.5 MG Alendronate Alendronate No Alendronat Sodium 70 Sodium 70 e Sodium MG MG 70 MG Metoprolol Metoprolol No Metoprolol Succinate Succinate Succinate ER 50 MG ER 50 MG ER 50 MG Aspir-81 81 Aspir-81 81 No 1{table QD Aspir-81 MG MG t} 81 MG Gabapentin Gabapentin No 1{capsu BID Gabapentin 300 MG 300 MG le} 300 MG Metoprolol Metoprolol No 1{capsu QD Metoprolol Succinate Succinate le} Succinate 50 MG 50 MG 50 MG Xopenex Xopenex No 3{ml} Xopenex 1.25 MG/3ML 1.25 MG/3ML 1.25 MG/3ML Alendronate Alendronate No Alendronat Sodium 70 Sodium 70 e Sodium MG MG 70 MG Gabapentin Gabapentin No 1{capsu BID Gabapentin 300 MG 300 MG le} 300 MG Metoprolol Metoprolol No 1{capsu QD Metoprolol Succinate Succinate le} Succinate 50 MG 50 MG 50 MG Meloxicam Meloxicam No 1{table Meloxicam 7.5 MG 7.5 MG t} 7.5 MG Crestor 40 Crestor 40 No 1{table QD Crestor 40 MG MG t} MG Crestor 40 Crestor 40 No 1{table QD Crestor 40 MG MG t} MG Meloxicam Meloxicam No 1{table Meloxicam 7.5 MG 7.5 MG t} 7.5 MG Alendronate Alendronate No Alendronat Sodium 70 Sodium 70 e Sodium MG MG 70 MG Metoprolol Metoprolol No Metoprolol Succinate Succinate Succinate ER 50 MG ER 50 MG ER 50 MG Aspir-81 81 Aspir-81 81 No 1{table QD Aspir-81 MG MG t} 81 MG Xopenex Xopenex No 3{ml} Xopenex 1.25 MG/3ML 1.25 MG/3ML 1.25 MG/3ML Alendronate Alendronate No Alendronat Sodium 70 Sodium 70 e Sodium MG MG 70 MG Crestor 40 Crestor 40 No 1{table QD Crestor 40 MG MG t} MG Aspir-81 81 Aspir-81 81 No 1{table QD Aspir-81 MG MG t} 81 MG Gabapentin Gabapentin No 1{capsu BID Gabapentin 300 MG 300 MG le} 300 MG Metoprolol Metoprolol No 1{capsu QD Metoprolol Succinate Succinate le} Succinate 50 MG 50 MG 50 MG Metoprolol Metoprolol No Metoprolol Succinate Succinate Succinate ER 50 MG ER 50 MG ER 50 MG Gabapentin Gabapentin No Gabapentin 300 MG 300 MG 300 MG Crestor 40 Crestor 40 No 1{table QD Crestor 40 MG MG t} MG Rosuvastati Rosuvastati No Rosuvastat n Calcium n Calcium in Calcium 40 MG 40 MG 40 MG Meloxicam Meloxicam No 1{table Meloxicam 7.5 MG 7.5 MG t} 7.5 MG Meloxicam Meloxicam No 1{table Meloxicam 7.5 MG 7.5 MG t} 7.5 MG Metoprolol Metoprolol No 1{capsu QD Metoprolol Succinate Succinate le} Succinate 50 MG 50 MG 50 MG Alendronate Alendronate No Alendronat Sodium 70 Sodium 70 e Sodium MG MG 70 MG Alendronate Alendronate No Alendronat Sodium 70 Sodium 70 e Sodium MG MG 70 MG Alendronate Alendronate No Alendronat Sodium 70 Sodium 70 e Sodium MG MG 70 MG Crestor 40 Crestor 40 No 1{table QD Crestor 40 MG MG t} MG Aspir-81 81 Aspir-81 81 No 1{table QD Aspir-81 MG MG t} 81 MG Gabapentin Gabapentin No 1{capsu BID Gabapentin 300 MG 300 MG le} 300 MG Metoprolol Metoprolol No Metoprolol Succinate Succinate Succinate ER 50 MG ER 50 MG ER 50 MG Xopenex Xopenex No 3{ml} Xopenex 1.25 MG/3ML 1.25 MG/3ML 1.25 MG/3ML Gabapentin Gabapentin No Gabapentin 300 MG 300 MG 300 MG Meloxicam Meloxicam No 1{table Meloxicam 7.5 MG 7.5 MG t} 7.5 MG Rosuvastati Rosuvastati No Rosuvastat n Calcium n Calcium in Calcium 40 MG 40 MG 40 MG Metoprolol Metoprolol No 1{capsu QD Metoprolol Succinate Succinate le} Succinate 50 MG 50 MG 50 MG Meloxicam Meloxicam No 1{table Meloxicam 7.5 MG 7.5 MG t} 7.5 MG Metoprolol Metoprolol No 1{capsu QD Metoprolol Succinate Succinate le} Succinate 50 MG 50 MG 50 MG Crestor 40 Crestor 40 No 1{table QD Crestor 40 MG MG t} MG Alendronate Alendronate No Alendronat Sodium 70 Sodium 70 e Sodium MG MG 70 MG Alendronate Alendronate No Alendronat Sodium 70 Sodium 70 e Sodium MG MG 70 MG Crestor 40 Crestor 40 No 1{table QD Crestor 40 MG MG t} MG Aspir-81 81 Aspir-81 81 No 1{table QD Aspir-81 MG MG t} 81 MG Gabapentin Gabapentin No 1{capsu BID Gabapentin 300 MG 300 MG le} 300 MG Metoprolol Metoprolol No Metoprolol Succinate Succinate Succinate ER 50 MG ER 50 MG ER 50 MG Xopenex Xopenex No 3{ml} Xopenex 1.25 MG/3ML 1.25 MG/3ML 1.25 MG/3ML Gabapentin Gabapentin No Gabapentin 300 MG 300 MG 300 MG Meloxicam Meloxicam No 1{table Meloxicam 7.5 MG 7.5 MG t} 7.5 MG Rosuvastati Rosuvastati No Rosuvastat n Calcium n Calcium in Calcium 40 MG 40 MG 40 MG Metoprolol Metoprolol No 1{capsu QD Metoprolol Succinate Succinate le} Succinate 50 MG 50 MG 50 MG Meloxicam Meloxicam No 1{table Meloxicam 7.5 MG 7.5 MG t} 7.5 MG Metoprolol Metoprolol No 1{capsu QD Metoprolol Succinate Succinate le} Succinate 50 MG 50 MG 50 MG Crestor 40 Crestor 40 No 1{table QD Crestor 40 MG MG t} MG Rosuvastati Rosuvastati No Rosuvastat n Calcium n Calcium in Calcium 40 MG 40 MG 40 MG Alendronate Alendronate No Alendronat Sodium 70 Sodium 70 e Sodium MG MG 70 MG Crestor 40 Crestor 40 No 1{table QD Crestor 40 MG MG t} MG Aspir-81 81 Aspir-81 81 No 1{table QD Aspir-81 MG MG t} 81 MG Gabapentin Gabapentin No 1{capsu BID Gabapentin 300 MG 300 MG le} 300 MG Xopenex Xopenex No 3{ml} Xopenex 1.25 MG/3ML 1.25 MG/3ML 1.25 MG/3ML Gabapentin Gabapentin No Gabapentin 300 MG 300 MG 300 MG Crestor 40 Crestor 40 No 1{table QD Crestor 40 MG MG t} MG Meloxicam Meloxicam No Meloxicam 7.5 MG 7.5 MG 7.5 MG Metoprolol Metoprolol No 1{capsu QD Metoprolol Succinate Succinate le} Succinate 50 MG 50 MG 50 MG Metoprolol Metoprolol No Metoprolol Succinate Succinate Succinate ER 50 MG ER 50 MG ER 50 MG Metoprolol Metoprolol No 1{capsu QD Metoprolol Succinate Succinate le} Succinate 50 MG 50 MG 50 MG Alendronate Alendronate No Alendronat Sodium 70 Sodium 70 e Sodium MG MG 70 MG Alendronate Alendronate No Alendronat Sodium 70 Sodium 70 e Sodium MG MG 70 MG Meloxicam Meloxicam No Meloxicam 7.5 MG 7.5 MG 7.5 MG Metoprolol Metoprolol No 1{capsu QD Metoprolol Succinate Succinate le} Succinate 50 MG 50 MG 50 MG Crestor 40 Crestor 40 No 1{table QD Crestor 40 MG MG t} MG Crestor 40 Crestor 40 No 1{table QD Crestor 40 MG MG t} MG Gabapentin Gabapentin No 1{capsu BID Gabapentin 300 MG 300 MG le} 300 MG Xopenex Xopenex No 3{ml} Xopenex 1.25 MG/3ML 1.25 MG/3ML 1.25 MG/3ML Rosuvastati Rosuvastati No Rosuvastat n Calcium n Calcium in Calcium 40 MG 40 MG 40 MG Aspir-81 81 Aspir-81 81 No 1{table QD Aspir-81 MG MG t} 81 MG Metoprolol Metoprolol No 1{capsu QD Metoprolol Succinate Succinate le} Succinate 50 MG 50 MG 50 MG Alendronate Alendronate No Alendronat Sodium 70 Sodium 70 e Sodium MG MG 70 MG Gabapentin Gabapentin No Gabapentin 300 MG 300 MG 300 MG Metoprolol Metoprolol No Metoprolol Succinate Succinate Succinate ER 50 MG ER 50 MG ER 50 MG Alendronate Alendronate No Alendronat Sodium 70 Sodium 70 e Sodium MG MG 70 MG Meloxicam Meloxicam No Meloxicam 7.5 MG 7.5 MG 7.5 MG Metoprolol Metoprolol No 1{capsu QD Metoprolol Succinate Succinate le} Succinate 50 MG 50 MG 50 MG Crestor 40 Crestor 40 No 1{table QD Crestor 40 MG MG t} MG Crestor 40 Crestor 40 No 1{table QD Crestor 40 MG MG t} MG Gabapentin Gabapentin No 1{capsu BID Gabapentin 300 MG 300 MG le} 300 MG Xopenex Xopenex No 3{ml} Xopenex 1.25 MG/3ML 1.25 MG/3ML 1.25 MG/3ML Rosuvastati Rosuvastati No Rosuvastat n Calcium n Calcium in Calcium 40 MG 40 MG 40 MG Aspir-81 81 Aspir-81 81 No 1{table QD Aspir-81 MG MG t} 81 MG Metoprolol Metoprolol No 1{capsu QD Metoprolol Succinate Succinate le} Succinate 50 MG 50 MG 50 MG Alendronate Alendronate No Alendronat Sodium 70 Sodium 70 e Sodium MG MG 70 MG Gabapentin Gabapentin No Gabapentin 300 MG 300 MG 300 MG Metoprolol Metoprolol No Metoprolol Succinate Succinate Succinate ER 50 MG ER 50 MG ER 50 MG Crestor 40 Crestor 40 No 1{table QD Crestor 40 MG MG t} MG Metoprolol Metoprolol No 1{capsu QD Metoprolol Succinate Succinate le} Succinate 50 MG 50 MG 50 MG Rosuvastati Rosuvastati No Rosuvastat n Calcium n Calcium in Calcium 40 MG 40 MG 40 MG Metoprolol Metoprolol No 1{capsu QD Metoprolol Succinate Succinate le} Succinate 50 MG 50 MG 50 MG Metoprolol Metoprolol No Metoprolol Succinate Succinate Succinate ER 50 MG ER 50 MG ER 50 MG Meloxicam Meloxicam No Meloxicam 7.5 MG 7.5 MG 7.5 MG Xopenex Xopenex No 3{ml} Xopenex 1.25 MG/3ML 1.25 MG/3ML 1.25 MG/3ML Alendronate Alendronate No Alendronat Sodium 70 Sodium 70 e Sodium MG MG 70 MG Alendronate Alendronate No Alendronat Sodium 70 Sodium 70 e Sodium MG MG 70 MG Meloxicam Meloxicam No 1{table Meloxicam 7.5 MG 7.5 MG t} 7.5 MG Gabapentin Gabapentin No Gabapentin 300 MG 300 MG 300 MG Gabapentin Gabapentin No 1{capsu BID Gabapentin 300 MG 300 MG le} 300 MG Crestor 40 Crestor 40 No 1{table QD Crestor 40 MG MG t} MG Aspir-81 81 Aspir-81 81 No 1{table QD Aspir-81 MG MG t} 81 MG Metoprolol Metoprolol No Metoprolol Succinate Succinate Succinate ER 50 MG ER 50 MG ER 50 MG Alendronate Alendronate No Alendronat Sodium 70 Sodium 70 e Sodium MG MG 70 MG Meloxicam Meloxicam No 1{table Meloxicam 7.5 MG 7.5 MG t} 7.5 MG Aspir-81 81 Aspir-81 81 No 1{table QD Aspir-81 MG MG t} 81 MG Crestor 40 Crestor 40 No 1{table QD Crestor 40 MG MG t} MG Alendronate Alendronate No Alendronat Sodium 70 Sodium 70 e Sodium MG MG 70 MG Metoprolol Metoprolol No 1{capsu QD Metoprolol Succinate Succinate le} Succinate 50 MG 50 MG 50 MG Metoprolol Metoprolol No 1{capsu QD Metoprolol Succinate Succinate le} Succinate 50 MG 50 MG 50 MG Rosuvastati Rosuvastati No Rosuvastat n Calcium n Calcium in Calcium 40 MG 40 MG 40 MG Gabapentin Gabapentin No Gabapentin 300 MG 300 MG 300 MG Xopenex Xopenex No 3{ml} Xopenex 1.25 MG/3ML 1.25 MG/3ML 1.25 MG/3ML Meloxicam Meloxicam No Meloxicam 7.5 MG 7.5 MG 7.5 MG Crestor 40 Crestor 40 No 1{table QD Crestor 40 MG MG t} MG Gabapentin Gabapentin No 1{capsu BID Gabapentin 300 MG 300 MG le} 300 MG Gabapentin Gabapentin No 1{capsu BID Gabapentin 300 MG 300 MG le} 300 MG Metoprolol Metoprolol No 1{capsu QD Metoprolol Succinate Succinate le} Succinate 50 MG 50 MG 50 MG Xopenex Xopenex No 3{ml} Xopenex 1.25 MG/3ML 1.25 MG/3ML 1.25 MG/3ML Alendronate Alendronate No Alendronat Sodium 70 Sodium 70 e Sodium MG MG 70 MG Gabapentin Gabapentin No 1{capsu BID Gabapentin 300 MG 300 MG le} 300 MG Metoprolol Metoprolol No 1{capsu QD Metoprolol Succinate Succinate le} Succinate 50 MG 50 MG 50 MG Meloxicam Meloxicam No 1{table Meloxicam 7.5 MG 7.5 MG t} 7.5 MG Crestor 40 Crestor 40 No 1{table QD Crestor 40 MG MG t} MG Crestor 40 Crestor 40 No 1{table QD Crestor 40 MG MG t} MG Meloxicam Meloxicam No 1{table Meloxicam 7.5 MG 7.5 MG t} 7.5 MG Alendronate Alendronate No Alendronat Sodium 70 Sodium 70 e Sodium MG MG 70 MG Metoprolol Metoprolol No Metoprolol Succinate Succinate Succinate ER 50 MG ER 50 MG ER 50 MG Aspir-81 81 Aspir-81 81 No 1{table QD Aspir-81 MG MG t} 81 MG Gabapentin Gabapentin No 1{capsu BID Gabapentin 300 MG 300 MG le} 300 MG Metoprolol Metoprolol No 1{capsu QD Metoprolol Succinate Succinate le} Succinate 50 MG 50 MG 50 MG Xopenex Xopenex No 3{ml} Xopenex 1.25 MG/3ML 1.25 MG/3ML 1.25 MG/3ML Vital Signs Vital Name Observation Time Observation Value Comments Source height 2022-03-25 10:20:00 60 [in_i] [facility] weight 2022-03-25 10:20:00 99.8 [lb_av] [facility] temperature 2022-03-25 10:20:00 97.7 [degF] [facility] bmi 2022-03-25 10:20:00 19.49 kg/m2 [facility] oximetry 2022-03-25 10:20:00 99 % [facility] respiratory rate 2022-03-25 10:20:00 18 /min [facility] blood pressure 2022-03-25 10:20:00 130 mm[Hg] [facility] blood pressure 2022-03-25 10:20:00 73 mm[Hg] [facility] - [facility] height 2021-12-24 10:50:00 60 [in_i] [facility] weight 2021-12-24 10:50:00 101.6 [lb_av] Common [facility] temperature 2021-12-24 10:50:00 97.6 [degF] Common [facility] bmi 2021-12-24 10:50:00 19.84 kg/m2 [facility] oximetry 2021-12-24 10:50:00 98 % [facility] respiratory rate 2021-12-24 10:50:00 18 /min [facility] blood pressure 2021-12-24 10:50:00 135 mm[Hg] [facility] - [facility] blood pressure 2021-12-24 10:50:00 79 mm[Hg] Common [facility] - diastolic [facility] height 2021-11-12 09:20:00 60 [in_i] Common [facility] weight 2021-11-12 09:20:00 97.8 [lb_av] Common [facility] temperature 2021-11-12 09:20:00 98.2 [degF] Common [facility] bmi 2021-11-12 09:20:00 19.1 kg/m2 [facility] oximetry 2021-11-12 09:20:00 99 % [facility] respiratory rate 2021-11-12 09:20:00 17 /min [facility] blood pressure 2021-11-12 09:20:00 138 mm[Hg] [facility] blood pressure 2021-11-12 09:20:00 76 mm[Hg] [facility] - [facility] height 2021-11-12 09:20:00 60 [in_i] Common [facility] weight 2021-11-12 09:20:00 97.8 [lb_av] Common [facility] temperature 2021-11-12 09:20:00 98.2 [degF] Common [facility] bmi 2021-11-12 09:20:00 19.1 kg/m2 [facility] oximetry 2021-11-12 09:20:00 99 % [facility] respiratory rate 2021-11-12 09:20:00 17 /min [facility] blood pressure 2021-11-12 09:20:00 138 mm[Hg] [facility] blood pressure 2021-11-12 09:20:00 76 mm[Hg] Common [facility] - diastolic [facility] height 2021-08-31 10:00:00 60 [in_i] [facility] weight 2021-08-31 10:00:00 107.2 [lb_av] [facility] temperature 2021-08-31 10:00:00 96.2 [degF] [facility] bmi 2021-08-31 10:00:00 20.93 kg/m2 Common [facility] blood pressure 2021-08-31 10:00:00 115 mm[Hg] Common [facility] - systolic [facility] blood pressure 2021-08-31 10:00:00 63 mm[Hg] Common [facility] - diastolic [facility] height 2021-04-28 14:10:00 60 [in_i] Common [facility] weight 2021-04-28 14:10:00 103.2 [lb_av] [facility] temperature 2021-04-28 14:10:00 96.8 [degF] [facility] bmi 2021-04-28 14:10:00 20.15 kg/m2 [facility] oximetry 2021-04-28 14:10:00 96 % [facility] respiratory rate 2021-04-28 14:10:00 18 /min [facility] blood pressure 2021-04-28 14:10:00 120 mm[Hg] Common [facility] - systolic [facility] blood pressure 2021-04-28 14:10:00 62 mm[Hg] Common [facility] - diastolic [facility] height 2021-04-28 14:00:00 60 [in_i] Common [facility] weight 2021-04-28 14:00:00 103.2 [lb_av] Common [facility] temperature 2021-04-28 14:00:00 96.8 [degF] Common [facility] bmi 2021-04-28 14:00:00 20.15 kg/m2 [facility] oximetry 2021-04-28 14:00:00 96 % [facility] respiratory rate 2021-04-28 14:00:00 18 /min [facility] blood pressure 2021-04-28 14:00:00 120 mm[Hg] Common [facility] - systolic [facility] blood pressure 2021-04-28 14:00:00 62 mm[Hg] Common [facility] - diastolic [facility] Systolic blood 2019-12-05 17:30:00 170 mm[Hg] [facility] Diastolic blood 2019-12-05 17:30:00 66 mm[facility]Hg[facility] 2019-12-05 17:30:00 64 /min [facility] Respiratory rate 2019-12-05 17:30:00 15 /min [facility] Oxygen saturation in 2019-12-05 17:30:00 97 /min [facility] Arterial blood by [facility] Pulse oximetry Branch Body temperature 2019-12-05 17:14:00 36.06 Gabib [facility] height 2019-12-04 13:00:00 149.9 cm [facility] Body weight 2019-12-04 13:00:00 49.896 kg [facility] BMI 2019-12-04 13:00:00 22.22 kg/m2 [facility] Systolic blood 2019-12-05 17:30:00 170 mm[Hg] Univer sity of pressure [facility] Diastolic blood 2019-12-05 17:30:00 66 mm[Hg] Unive rsity of pressure [facility] Heart rate 2019-12-05 17:30:00 64 /min [facility] Respiratory rate 2019-12-05 17:30:00 15 /min [facility] Oxygen saturation in 2019-12-05 17:30:00 97 /min [facility] Arterial blood by [facility] prashant Pulse oximetry Branch Body temperature 2019-12-05 17:14:00 36.06 Gabbi [facility] Body height 2019-12-04 13:00:00 149.9 cm [facility] Body weight 2019-12-04 13:00:00 49.896 kg [facility] BMI 2019-12-04 13:00:00 22.22 kg/m2 [facility] Respiratory rate 2019-12-05 17:09:00 15 /min [facility] Respiratory rate 2019-12-05 17:09:00 15 /min [facility] Systolic blood 2019-11-21 15:55:00 180 mm[Hg] Univer sity of pressure [facility] Diastolic blood 2019-11-21 15:55:00 69 mm[Hg] Unive rsity of pressure [facility] Heart rate 2019-11-21 15:55:00 60 /min [facility] Respiratory rate 2019-11-21 15:55:00 17 /min [facility] Oxygen saturation in 2019-11-21 15:55:00 98 /min [facility] Arterial blood by [facility] prashant Pulse oximetry Branch Body temperature 2019-11-21 15:20:00 36.56 Gabbi [facility] Body height 2019-11-21 13:00:00 149.9 cm [facility] Body weight 2019-11-21 13:00:00 49.896 kg [facility] BMI 2019-11-21 13:00:00 22.22 kg/m2 [facility] Systolic blood 2019-11-21 15:55:00 180 mm[Hg] Univer sity of pressure [facility] Diastolic blood 2019-11-21 15:55:00 69 mm[Hg] Unive rsity of pressure [facility] Heart rate 2019-11-21 15:55:00 60 /min [facility] Respiratory rate 2019-11-21 15:55:00 17 /min [facility] Oxygen saturation in 2019-11-21 15:55:00 98 /min [facility] Arterial blood by [facility] Pulse oximetry Branch Body temperature 2019-11-21 15:20:00 36.56 Gabbi [facility] Body height 2019-11-21 13:00:00 149.9 cm [facility] Body weight 2019-11-21 13:00:00 49.896 kg [facility] BMI 2019-11-21 13:00:00 22.22 kg/m2 [facility] Procedures Procedure Date / Time Performing Clinician Source Performed CONSENT/REFUSAL FOR 2019-12-04 13:54:31 Doctor Unassigned, Tikie [facility] DIAGNOSIS AND TREATMENT [facility] ASSIGNMENT OF BENEFITS 2019-12-04 13:54:12 Doctor Unassigned, Un [facility] Name Medical Branch CBC WITH DIFFERENTIAL 2019-11-16 15:49:00 Greyson Moore [facility] CONSENT/REFUSAL FOR 2019-11-16 15:25:37 Doctor Unasima, Thomas [facility] DIAGNOSIS AND TREATMENT [facility] ASSIGNMENT OF BENEFITS 2019-11-16 15:25:15 [facility] NOTICE OF BILLING 2019-11-16 15:24:47 Doctor Unassigned, [facility] PRACTICES FOR MEDICARE [facility] PATIENTS [facility] PATIENT FINANCIAL 2019-11-16 15:24:28 Doctor Unassigned, Un [facility] POLICY [facility] NO SHOW OR MISSED 2019-11-16 15:24:05 Doctor Unassigned, [facility] APPOINTMENT POLICY [facility] ACKNOWLEDGEMENT NOTICE OF PRIVACY 2019-11-16 15:23:43 Doctor Unassigned, [facility] PRACTICES [facility] CONSENT/REFUSAL FOR 2019-11-16 15:23:22 Doctor Unassigned, Unive [facility] DIAGNOSIS AND TREATMENT [facility] ASSIGNMENT OF BENEFITS 2019-11-16 15:22:59 Doctor Unassigned, Reagan [facility] Encounters Start End Encounter Admission Attending Care Care Encounter Source Date/Time Date/Time Type Type Clinicians Facility Department ID 2022-03-26 Outpatient Abdalla, STLMLC STLMLC [id number] Common 08:26:00 Denny [facility] 2022-03-25 Outpatient Abdalla, STLMLC STLMLC [id number] Common 10:11:00 Denny [facility] 2022-03-24 Outpatient Abdalla, STLMLC STLMLC [id number] Common 10:15:07 Denny [facility] 2022-01-25 Outpatient Abdalla, STLMLC STLMLC [id number] Common 13:50:00 Denny [facility] 2021-12-25 Outpatient Abdalla, STLMLC STLMLC [id number] Common 07:27:00 Denny [facility] 2021-11-13 Outpatient Abdalla, STLMLC STLMLC [id number] Common 08:45:02 Denny [facility] 2021-11-09 Outpatient Abdalla, STLMLC STLMLC [id number] Common 13:41:00 Denny [facility] 2021-09-29 Outpatient Abdalla, STLMLC STLMLC [id number] Common 15:38:00 Denny [facility] 2021-08-12 Outpatient Abdalla, STLMLC STLMLC [id number] Common 14:21:27 Denny [address] [facility] 2021-08-12 Outpatient Abdalla, STLMLC STLMLC [id number] Common 14:00:42 Denny [address] [facility] 2021-08-12 Outpatient Abdalla, STLMLC STLMLC [id number] Common 13:24:30 Denny [address] [facility] 2021-08-12 Outpatient Abdalla, STLMLC STLMLC [id number] Common 12:41:17 Denny [address] [facility] 2021-08-12 Outpatient Abdalla, STLMLC STLMLC [id number] Common 11:53:12 Denny [address] [facility] 2021-08-12 Outpatient Abdalla, STLMLC STLMLC [id number] Common 11:50:53 Denny [address] [facility] 2021-08-12 Outpatient Abdalla, STLMLC STLMLC [id number] Common 11:29:14 Denny [address] [facility] 2021-08-12 Outpatient Abdalla, STLMLC STLMLC [id number] Common 11:27:37 Denny [address] [facility] 2021-08-12 Outpatient Abdalla, STLMLC STLMLC [id number] Common 11:18:10 Denny [address] [facility] 2021-08-12 Outpatient Abdalla, STLMLC STLMLC [id number] Common 11:03:30 Denny [address] [facility] 2021-08-12 Outpatient Ariane Thomas STLMLC STLC [id number] Common 11:02:51 [address] [facility] 2021-05-14 Outpatient ESTUARDO [facility] [id number] Univers 21:11:39 [facility] 2021-05-14 Outpatient R [facility] [id number] Univers 19:37:31 [facility] 2022-03-25 2022-03-25 OFFICE STLMLC STLMLC [id number] Co mmon 00:00:00 00:00:00 [facility] ESTAB PT - CHI LEVEL 4 [facility] 2022-02-15 2022-02-15 Outpatient DICLEMENTE_ SUE ROGERS [address] [place] 00:00:00 00:00:00 ANANDA chong [facility] Outre h Program 2021-12-24 2021-12-24 OFFICE STLMLC STLMLC [id number] Co mmon 00:00:00 00:00:00 [facility] ESTAB PT - CHI LEVEL 4 [facility] 2021-11-12 2021-11-12 OFFICE STLMLC STLMLC [id number] Co mmon 00:00:00 00:00:00 VISIT EST Spir it PT LEVEL 3 - CHI [facility] 2021-11-12 2021-11-12 SUB ANNUAL STLMLC STLMLC [id number] Common 00:00:00 00:00:00 MCR [facility] WELLNESS - CHI VISIT [facility] 2021-09-25 2021-09-25 (TEL) STLMLC STLMLC [id number] Co mmon 00:00:00 00:00:00 [facility] 2021-09-11 2021-09-11 (TEL) STLMLC STLMLC [id number] Co mmon 00:00:00 00:00:00 [facility] 2021-09-02 2021-09-02 (TEL) STLMLC STLMLC [id number] Co mmon 00:00:00 00:00:00 [facility] 2021-08-31 2021-08-31 OFFICE STLMLC STLMLC [id number] Co mmon 00:00:00 00:00:00 VISIT EST Spir it PT LEVEL 3 - CHI [facility] 2021-04-28 2021-04-28 (TEL) STLMLC STLMLC [id number] Co mmon 00:00:00 00:00:00 [facility] 2021-04-28 2021-04-28 OFFICE STLMLC STLMLC [id number] Co mmon 00:00:00 00:00:00 [facility] ESTAB PT - CHI LEVEL 4 [facility] 2021-04-28 2021-04-28 (TEL) STLMLC STLMLC [id number] Co mmon 00:00:00 00:00:00 [facility] 2021-04-28 2021-04-28 SUB ANNUAL STLMLC STLMLC [id number] Common 00:00:00 00:00:00 [facility] WELLNESS - CHI VISIT [facility] 2021-01-26 2021-01-26 Outpatient STLMLC STLMLC [id number] Common 00:00:00 00:00:00 [facility] 2021-01-13 2021-01-13 Outpatient STLMLC STLMLC [id number] Common 00:00:00 00:00:00 [facility] 2020-10-27 2020-10-27 Outpatient STLMLC STLMLC [id number] Common 00:00:00 00:00:00 [facility] 2020-10-02 2020-10-02 Outpatient STLMLC STLMLC [id number] Common 00:00:00 00:00:00 [facility] 2020-09-30 2020-09-30 Outpatient STLMLC STLMLC [id number] Common 00:00:00 00:00:00 [facility] 2020-09-28 2020-09-28 Outpatient STLMLC STLMLC [id number] Common 00:00:00 00:00:00 [facility] 2020-07-30 2020-07-30 Outpatient STLMLC STLMLC [id number] Common 00:00:00 00:00:00 [facility] 2020-07-28 2020-07-28 Outpatient STLMLC STLMLC [id number] Common 00:00:00 00:00:00 [facility] 2020-05-06 2020-05-06 Outpatient STLMLC STLMLC [id number] Common 00:00:00 00:00:00 [facility] 2020-04-24 2020-04-24 Outpatient STLMLC STLMLC [id number] Common 00:00:00 00:00:00 [facility] 2020-04-24 2020-04-24 Outpatient STLMLC STLMLC [id number] Common 00:00:00 00:00:00 [facility] 2020-04-17 2020-04-17 Outpatient STLMLC STLMLC [id number] Common 00:00:00 00:00:00 [facility] 2020-01-16 2020-01-16 [id number] Common 08:45:00 08:45:00 [employer] [facility] [employer] [facility] 2019-12-05 2019-12-05 [facility] [id number] Univers 10:22:39 13:03:00 Encounter Greyson Wisdom [place] 350.1.13.10 [place] [id number] [facility] 071 [place] 2019-12-05 2019-12-05 [facility] [id number] 10:22:39 13:03:00 Encounter Greyson Ulloa 350.1.13.10 [place] 4.2.7.2.686 Surgical [id number] [place] [address] 2019-12-05 2019-12-05 Anesthesia Nidia Nolasco [facility] 1.2.840 .114 [id number] [facility] 11:44:00 12:10:00 Prabhakar Sandoval 350.1.13.10 [place] [id number] [facility] 020 [place] 2019-12-05 2019-12-05 Anesthesia Nidia Nolasco [facility] 1.2.840 .114 [id number] 11:44:00 12:10:00 Prabhakar Sandoval 350.1.13.10 [place] 4.2.7.2.686 Surgical [id number] [place] [address] 2019-12-04 2019-12-04 Laboratory Only, [facility] Test [facility] 1.2.840. 114 [id number] Univers 08:03:07 08:18:07 Only Greyson Moore 350.1.13.1 0 [place] [id number] Tn dical [facility] 353 [facility] 2019-12-04 2019-12-04 Laboratory Only, [facility] 1.2.840.114 [id number] 08:03:07 08:18:07 Only Test Laila 350.1.13.10 [place] 4.2.7.2.686 Professio [id number] [address] 2019-12-04 2019-12-04 [facility] [id number] Univers 08:15:00 08:15:00 GREYSON ity of [facility] 2019-11-21 2019-11-21 [facility] [id number] [facility] 07:48:00 11:30:00 Encounter Greyson [place] 350.1.13.10 [place] [id number] Med ical [address] 2019-11-21 2019-11-21 [facility] [id number] 07:48:00 11:30:00 Encounter Greyson Alyx [place] 350.1.13.10 [place] 4.2.7.2.686 Surgical [id number] [place] [address] 2019-11-20 2019-11-20 Outpatient R [facility] [id number] [facility] 09:30:00 09:30:00 ity of [facility] 2019-11-20 2019-11-20 Laboratory Nurse, [facility] 1.2.840.114 [id number] 08:56:58 09:07:43 Only General [place] 350.1.13.10 Surgery [place] 4.2.7.2.686 Professio [id number] [address] 2019-11-20 2019-11-20 Laboratory Nurse, [facility] General Surgery [facility] 1.2.840.114 [id number] [facility] 08:56:58 09:07:43 Only Greyson Moore 350.1.13.1 0 [place] [id number] Tn dical [address] 2019-11-20 2019-11-20 Telephone [facility] 1.2.840.114 [id number] 00:00:00 00:00:00 Greyson Alyx [place] 350.1.13.10 [place] 4.2.7.2.686 Surgical [id number] [place] [address] 2019-11-20 2019-11-20 Telephone [facility] 1.2.840.114 [id number] [facility] 00:00:00 00:00:00 Greyson Alyx [place] 350.1.13.10 [place] [id number] [facility] [address] 2019-11-16 2019-11-16 [employer], [facility] Main [facility] 1.2.8 40.114 [id number] Univers 10:33:59 10:48:59 Visit Greyson Moore 350.1.13.1 0 [place] [phone] [place] [address] [address] [facility] 2019-11-16 2019-11-16 Outpatient Jane MOORE [facility] [id number] Univers 10:45:00 10:45:00 GREYSON itrosina [facility] 2019-11-12 2019-11-12 [facility] [id number] Common 15:30:00 15:30:[address] [facility] 2019-08-20 2019-08-20 [facility] [id number] Common 14:48:00 14:48:[address] [facility] 2019-08-13 2019-08-13 [facility] [id number] Common 15:30:00 15:30:[address] [facility] 2016-07-22 2016-07-22 Outpatient Marcia MMG MMG [id number] [place] 10:45:00 10:45:00 0105 [facility] Results Test Description Test [...] 33.3 g/dL 31.6-35.1 RDW-SD (test code = 51160-0) 46.0 fL 39-49.9 RDW-CV (test code = 788-0) 13.2 % 12-15.5 PLT (test code = 777-3) See_Comment [Au tomated message] The system which ge nerated this result transmit radha reference range: 166 - 35 8 10*3/?L. The reference range was not used to interpret th is result as normal/abnormal . MPV (test code = 46720-1) 11.8 fL 9.5-12.9 NRBC/100 WBC (test code = See_Comment [ Automated message] The [id number]) system which ge nerated this result transmit radha reference range: 0.0 - 10 .0 /100 WBCs. The reference r angela was not used to interpr et this result as normal/abnor mal. NRBC x10^3 (test code = <0.01 See_Comment [Au tomated message] The [id number]) system which ge nerated this result transmit radha reference range: 10*3/?L. The reference range was not u sed to interpret this result as normal/abnormal . GRAN MAT (NEUT) % (test code 57.0 % = 770-8) IMM GRAN % (test code = 0.40 % [id number]) LYMPH % (test code = 736-9) 29.6 % MONO % (test code = 5905-5) 9.6 % EOS % (test code = 713-8) 2.2 % BASO % (test code = 706-2) 1.2 % GRAN MAT x10^3(ANC) (test 5.49 10*3/uL 1.88-7.09 code = [id number]) IMM GRAN x10^3 (test code = 0.04 10*3/uL 0-0.06 [id number]) LYMPH x10^3 (test code = 2.86 10*3/uL 1.32-3.29 731-0) MONO x10^3 (test code = 0.93 10*3/uL 0.33-0.92 H 742-7) EOS x10^3 (test code = 0.21 10*3/uL 0.03-0.39 711-2) BASO x10^3 (test code = 0.12 10*3/uL 0.01-0.07 H 704-7) Lab Interpretation (test Abnormal code = 35986-2) [facility] with [id number] 23:33:00 Test Item Value Reference Range Interpretation [...] code = ALYMPH) 3.4 K/cumm 0.5-4.6 N [place] Abs (test code = AMONO) 0.7 K/cumm 0.0-1.2 N Eos Abs (test code = AEOS) 0.10 K/cumm 0.00-0.74 N Baso Abs (test code = ABASO) 0.1 K/cumm 0.00-0.21 N Lipid [id number] 23:22:00 Test Item Value Reference Range Interpretation Comments Cholesterol (test 136 mg/dL 0-200 N code = CHOL) Triglycerides (test 100 mg/dL 9-200 N code = TRIG) HDL (test code = 53 mg/dL 50-60 N HDL) Chol/HDL (test code 2.6 Ratio 0.0-4.4 N = CHOLPHDL) LDL, Calculated 63 mg/dL 0-130 N (NOTE)RISK O F HEART (test code = LDLC) DISEASEPu blished by [place] Heart AssociationAnal yte Optimal Boderli ne Increased RiskC HOL <200 200-239 >240TRI G <150 150-199 >200HDL Male: >60 <40HDL Fema le: >60 <50LDL <100 130 -159 >160LDL NEAR OP TIMAL IS 100-129 VLDL (test code = 20 mg/dL 5-40 N VLDL) LDL/HDL (test code = 1 LDLPHDL) Comprehensive Metabolic [id number] 23:22:00 Test Item Value Reference Range Interpretation [...]
[2022-05-08] MEDS ORDERED: ONDANSETRON 4 MG (ODT) TAB ONE (04:23)
--- NOTE | 2022-05-08 05:21 | ER ---
Nurse's Notes [facility] Name: Germania Bañuelos Age: 72 yrs Sex: Female : 1950 Arrival Date: 05/08/2022 Time: 04:10 Bed 7 Private MD: Diagnosis: Nausea with vomiting, unspecified;Diarrhea, unspecified;Essential (primary) hypertension Presentation: 05/08 04:21 Chief complaint: Patient states: she got her 2nd Covid vaccine 2 days ago and yesterday bb she vomited and had several episodes of diarrhea with chills wanted to make sure she is not having an allergic reaction. Coronavirus screen: At this time, the client does not indicate any symptoms associated with coronavirus-19. Ebola Screen: No symptoms or risks identified at this time. Initial Sepsis Screen: Does the patient meet any 2 criteria? No. Patient's initial sepsis screen is negative. Does the patient have a suspected source of infection? No. Patient's initial sepsis screen is negative. Risk Assessment: Do you want to hurt yourself or someone else? Patient reports no desire to harm self or others. Onset of symptoms was May 07, 2022. 04:21 Method Of Arrival: Ambulatory bb 04:21 Acuity: MIGUEL 5 bb Triage Assessment: 04:55 General: Appears. ha1 Historical: - Allergies: 04:23 Demerol; bb 04:23 darvon; bb 04:23 Tamiflu; bb - Home Meds: 04:23 Crestor Oral [Active]; gabapentin Oral [Active]; meloxicam Oral [Active]; aspirin 81 mg bb Oral chew 1 tab once daily [Active]; metoprolol tartrate 25 mg Oral tab 1 tab 2 times per day [Active]; Tramadol Oral [Active]; - PMHx: 04:23 COPD; Hyperlipidemia; Hypertension; shoulder pain; Osteoporosis; bb - PSHx: 04:23 None; bb - Immunization history:: Client reports receiving the 2nd dose of the Covid vaccine, Moderna. - Social history:: Smoking status: Patient denies any tobacco usage or history of. Screenin:55 Abuse screen: Denies threats or abuse. Denies injuries from another. Nutritional ha1 screening: No deficits noted. Tuberculosis screening: No symptoms or risk factors identified. Fall Risk None identified. Assessment: 04:20 General: Appears uncomfortable, Behavior is calm, cooperative. Pain: Denies pain. ha1 Neuro: Level of Consciousness is awake, alert, Oriented to person, place, time, situation. Cardiovascular: Patient's skin is warm and dry. Respiratory: Airway is patent Trachea midline Respiratory effort is even, unlabored, Respiratory pattern is regular, symmetrical. GI: Abdomen is flat, non-distended, Bowel sounds present X 4 quads. Reports diarrhea, vomiting. : No signs and/or symptoms were reported regarding the genitourinary system. Derm: Skin is pink, warm \T\ dry. Musculoskeletal: Circulation, motion, and sensation intact. Range of motion: intact in all extremities. 05:17 Reassessment: Patient and/or family updated on plan of care and expected duration. Pain ha1 level reassessed. Patient is alert, oriented x 3, equal unlabored respirations, skin warm/dry/pink. Patient states feeling better. Patient states symptoms have improved. Vital Signs: 04:20 BP 131 / 76; Pulse 90; Resp 17 S; Pulse Ox 97% on R/A; ha1 04:21 BP 142 / 76; Pulse 111; Resp 16 S; Temp 98.9(O); Pulse Ox 99% on R/A; Weight 49.44 kg bb (M); Height 4 ft. 11 in. (149.86 cm) (R); Pain 0/10; 05:18 BP 164 / 70; Pulse 89; Resp 16 S; Pulse Ox 96% on R/A; ha1 04:21 Body Mass Index 22.02 (49.44 kg, 149.86 cm) bb ED Course: 04:10 Patient arrived in ED. ja2 04:12 Clarence Adan DO is Attending Physician. ms3 04:16 Darrel Andino, RN is Primary Nurse. jb4 04:20 Warm blanket given. ha1 04:23 Triage completed. bb 04:23 Arm band placed on Patient placed in an exam room, on a stretcher, on pulse oximetry. bb 05:00 Patient has correct armband on for positive identification. Bed in low position. Call ha1 light in reach. Side rails up X 1. Door closed. Noise minimized. Lights dimmed. 05:20 Denny Abdalla DO is Referral Physician. ms3 05:27 No provider procedures requiring assistance completed. Patient did not have IV access ha1 during this emergency room visit. Administered Medications: 04:24 Drug: Ondansetron 4 mg Route: PO; ha1 04:59 Follow up: Response: No adverse reaction ha1 Medication: 05:27 VIS not applicable for this client. ha1 Outcome: 05:20 Discharge ordered by . ms3 05:27 Discharged to home ambulatory. ha1 05:27 Condition: stable 05:27 Discharge instructions given to patient, Instructed on discharge instructions, follow up and referral plans. medication usage, Demonstrated understanding of instructions, follow-up care, medications, Prescriptions given X 1. 05:27 Patient left the ED. ha1 Signatures: Michelle Morrow RN RN Darrel Nicole RN RN jb4 Clarence Adan DO DO ms3 Monique Joel Michelle Lainez, RN RN ha1 Corrections: (The following items were deleted from the chart) 04:26 04:23 Allergies: dorvon; nando collier
--- NOTE | 2022-05-08 05:21 | EDPHYS ---
Physician Documentation [facility] Name: Germania Bañuelos Age: 72 yrs Sex: Female : 1950 Arrival Date: 05/08/2022 Time: 04:10 Bed 7 Private MD: ED Physician Clarence Adan HPI: 05/08 04:23 This 72 yrs old Female presents to ER via Unassigned with complaints of ms3 Vomiting/Diarrhea. 04:23 72-year-old female with past medical history of hypertension, hyperlipidemia, ms3 osteoporosis presents for nausea, vomiting, diarrhea that began yesterday. Patient states she received her second Moderna vaccination 2 days ago. Patient denies abdominal pain at this time. Patient denies alleviating or inciting factors. Patient endorses chills, denies fevers.. Historical: - Allergies: 04:23 Demerol; bb 04:23 darvon; bb 04:23 Tamiflu; bb - Home Meds: 04:23 Crestor Oral [Active]; gabapentin Oral [Active]; meloxicam Oral [Active]; aspirin 81 mg bb Oral chew 1 tab once daily [Active]; metoprolol tartrate 25 mg Oral tab 1 tab 2 times per day [Active]; Tramadol Oral [Active]; - PMHx: 04:23 COPD; Hyperlipidemia; Hypertension; shoulder pain; Osteoporosis; bb - PSHx: 04:23 None; bb - Immunization history:: Client reports receiving the 2nd dose of the Covid vaccine, Moderna. - Social history:: Smoking status: Patient denies any tobacco usage or history of. ROS: 04:23 Eyes: Negative for injury, pain, redness, and discharge, Neck: Negative for injury, ms3 pain, and swelling, Cardiovascular: Negative for chest pain, and palpitations. Respiratory: Negative for shortness of breath, cough, wheezing, and pleuritic chest pain. 04:23 Skin: Negative for injury, rash, and discoloration, Psych: Negative for depression, anxiety, suicide ideation, homicidal ideation, and hallucinations. 04:23 Constitutional: Positive for chills. 04:23 Abdomen/GI: Positive for nausea, vomiting, and diarrhea, Negative for abdominal pain. 04:23 All other systems are negative. Exam: 04:23 Constitutional: This is a well developed, well nourished patient who is awake, alert, ms3 and in no acute distress. Head/Face: Normocephalic, atraumatic. Neck: Trachea midline, no cervical lymphadenopathy. Supple, full range of motion without nuchal rigidity, or vertebral point tenderness. No Meningismus. Chest/axilla: Normal chest wall appearance and motion. Nontender with no deformity. Respiratory: Lungs have equal breath sounds bilaterally, clear to auscultation and percussion. No rales, rhonchi or wheezes noted. No increased work of breathing, no retractions or nasal flaring. Abdomen/GI: Soft, non-tender, with normal bowel sounds. No distension or tympany. No guarding or rebound. No evidence of tenderness throughout. 04:23 Cardiovascular: Rate: tachycardic, Rhythm: regular, Pulses: no pulse deficits are appreciated. Vital Signs: 04:20 BP 131 / 76; Pulse 90; Resp 17 S; Pulse Ox 97% on R/A; ha1 04:21 BP 142 / 76; Pulse 111; Resp 16 S; Temp 98.9(O); Pulse Ox 99% on R/A; Weight 49.44 kg bb (M); Height 4 ft. 11 in. (149.86 cm) (R); Pain 0/10; 05:18 BP 164 / 70; Pulse 89; Resp 16 S; Pulse Ox 96% on R/A; ha1 04:21 Body Mass Index 22.02 (49.44 kg, 149.86 cm) bb MDM: 04:23 Patient medically screened. ms3 04:23 Differential diagnosis: Nonspecific abd pain, gastritis, viral gastroenteritis, ms3 gastroenteritis. 05:22 Data reviewed: vital signs, nurses notes, and as a result, I will discharge patient. ms3 Counseling: I had a detailed discussion with the patient and/or guardian regarding: the historical points, exam findings, and any diagnostic results supporting the discharge/admit diagnosis, the need for outpatient follow up, to return to the emergency department if symptoms worsen or persist or if there are any questions or concerns that arise at home. ED course: Patient states she is improved after Zofran, tolerating p.o., alert and orient x4, no apparent distress, nontoxic-appearing. Patient to follow-up with her primary care physician in 2 to 3 days for reevaluation. Patient understands and agrees with plan. All questions were answered. Return precautions discussed include worsening symptoms, or any other concerns. 05/08 04:23 Order name: PO challenge; Complete Time: 05:13 ms3 Administered Medications: 04:24 Drug: Ondansetron 4 mg Route: PO; ha1 04:59 Follow up: Response: No adverse reaction ha1 Disposition Summary: 05/08/22 05:20 Discharge Ordered Location: Home ms3 Condition: Stable ms3 Diagnosis - Nausea with vomiting, unspecified ms3 - Diarrhea, unspecified ms3 - Essential (primary) hypertension ms3 Followup: ms3 - With: Denny Abdalla DO - When: 2 - 3 days - Reason: Recheck today's complaints Discharge Instructions: - Discharge Summary Sheet ms3 - Diarrhea, Adult ms3 - Hypertension, Adult ms3 - Nausea and Vomiting, Adult ms3 Forms: - Medication Reconciliation Form ms3 - Thank You Letter ms3 - Antibiotic Education ms3 - Prescription Opioid Use ms3 Prescriptions: - ondansetron 4 mg Oral tablet,disintegrating - take 1 tablet by ORAL route every 8 hours; 15 tablet; Refills: 0, Product ms3 Selection Permitted Signatures: Michelle Morrow RN RN Clarence Lockett DO DO ms3 Michelle Lainez RN RN ha1 Corrections: (The following items were deleted from the chart) 04:26 04:23 Allergies: dorvon; nando collier
[2022-05-08 05:33] VITALS: TEMP 98.9
[2022-05-08 05:35] VITALS: BP 164/70; O2SAT 96
== END 2022-05-08 05:27 | disposition home or self-care (01) ==
LOC: ER 04:05
DX: R11.2 Nausea with vomiting, unspecified (principal); R19.7 Diarrhea, unspecified; I10 Essential (primary) hypertension; Z88.5 Allergy status to narcotic agent; Z88.8 Allergy status to other drugs, medicaments and biological substances; Z79.82 Long term (current) use of aspirin
CPT/HCPCS: 99283; Q0162

== ENCOUNTER 2022-07-12 11:31 | Emergency (ER) | payer OTHER ==
--- OUTSIDE RECORDS SUMMARY | 2022-07-12 11:36 | XMS REPORT | Continuity of Care Document ---
:1950 Author Organization [facility] t Address [address] [place] [address] Care Team Providers Name Role Phone JORGE [...] Date Expiration Date S ource HUMANA CHOICE [id number] 2019 00:00:00 [facility] 53 [id number] 2021 2022 Common ADVANTAGE WELLMED 00:00:00 00:00:00 [facility] 53 [id number] 2020 Commo n MEDICARE 00:00:00 [facility] [id number] - CARE IMPROVEMENT PLUS - REGIONAL (MEDICARE REPLACEMENT PPO) MEDICARE B-[place]: [id number] 2011 [employer]RYTHNGS [employer] 00:00:00 Problems Condition Condition Condition Status Onset Resolution Last Treating Co mments Source Name Details Category Date Date Treatment Clinician Date No known No known Disease Unive rs active active ity of problems problems [facility] Branch Low back Low back Problem Commo n pain pain, Spirit unspecifie - [facility] d [facility] [id number] Mixed Problem Common hyperlipid [facility] emia [facility] [id number] Low back Problem Comm on pain [facility] COPD - COPD Problem Common Chronic (chronic Spirit obstructiv obstructiv - [facility] e e pulmonary pulmonary [place] s disease disease) [facility] [id number] Lymphocyto Problem Com mon sis [facility] [id number] Other Problem Common chronic Spirit pain [facility] [id number] Malignant Problem Comm on hypertensi Spirit ve urgency [facility] Hypertensi Hypertensi Problem C ommon on on Spirit [facility] [id number] 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 Medical artery of Center [place] heart without angina pectoris [id number] 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 - [facility]I is without [facility] pathologic Medica l al Center fracture [id number] Tobacco Problem Commo n use Spirit disorder [facility] Allergies, Adverse Reactions, Alerts Allergy Allergy Status Severity Reaction(s) Onset Inactive Treating Comm ents Source Name Type Date Date Clinician OSELTAMI DRUG Active Dizziness Unive rs VIR INGREDI 11-20 ity of PHOSPHAT 00:00: [place] E 00 Medical Branch Oseltami Propensi Active Dizziness Uni vers vir ty to 11-20 ity of Phosphat adverse 00:00: [place] e reaction 00 [facility] PROPOXYP DRUG Active Hallucinates Un shahram HENE HCL INGREDI 09-21 ity of 00:00: [place] [facility] MEPERIDI DRUG Active Hallucinates Un shahram NE HCL INGREDI 09-21 ity of 00:00: [place] [facility] Propoxyp Propensi Active Hallucinatio Univers hene Hcl ty to ns 07 ity of adverse 00:00: [place] reaction Medical Branch Meperidi Propensi Active Hallucinatio Univers ne Hcl ty to ns 307 ity of adverse 00:00: [place] reaction [facility] oseltami oseltami Active Unknown Commo n vir vir [facility] meperidi meperidi Active Unknown Commo n ne ne [facility] [id number] Drug Active Unknown Common allergy [facility] Social History Social Habit Start Date Stop Date Quantity Comments Source Exposure to Not sure [facility] SARS-CoV-2 (event) Medica l Branch History of Tobacco Current Smoker Co mmon [facility] - [facility] Use [facility] Sex Assigned At Common Sp luba - [facility] Smoking Status Start Date Stop Date Source Unknown if ever smoked [facility] Current Smoker 2022-06-25 00:00:00 [facility] Spiri [facility] Medications Ordered Filled Start Stop Current [...] mouth ity of mg tablet 20:06: daily. [place] [address] Medical Branch atenolol 2020-0 Yes 25mg Take 25 mg Uni vers (TENORMIN) 5-20 by mouth 2 ity of 25 mg 20:06: (two) [place] tablet 53 times Medical daily. Branch ISOSORBIDE 2020-0 Yes 30mg Take 30 mg U nivers ORAL 5-20 by mouth ity of 20:06: daily. [place] [address] Medical Branch clopidogrel 2020-0 Yes 75mg Take 75 mg Univers (PLAVIX) 75 5-20 by mouth ity of mg tablet 20:06: daily. [place] [address] Medical Branch amLODIPine 2020-0 Yes 10mg Take 10 mg U nivers (NORVASC) 5-20 by mouth ity of 10 mg 20:06: daily. [place] [address] Medical Branch POTASSIUM 2020-0 Yes 2{tbl} Take 2 Univ ers GLUCONATE 5-20 Tabs by ity of ORAL 20:06: mouth 2 [place] [address] (two) Medical times Branch daily. aspirin 81 2020-0 Yes 81mg Take 81 mg U nivers mg tablet 5-20 by mouth ity of 20:06: daily. [address] Branch metoprolol 2020-0 Yes 25mg Take 25 mg U nivers tartrate 25 5-20 by mouth 2 it y of mg tablet 20:06: (two) [place] [address] times Medical daily. Branch ergocalcife 2020-0 Yes Take by Uni vers rol, 5-20 mouth. ity of vitamin D2, 20:06: [place] (VITAMIN D 53 Medical ORAL) Branch lisinopril 2020-0 Yes 5mg Take 5 mg Un shahram (ZESTRIL) 5 5-20 by mouth ity of mg tablet 20:06: daily. [address] Branch atenolol 2020-0 Yes 25mg Take 25 mg Uni vers (TENORMIN) 5-20 by mouth 2 ity of 25 mg 20:06: (two) [place] tablet 53 times Medical daily. Branch ISOSORBIDE 2020-0 Yes 30mg Take 30 mg U nivers ORAL 5-20 by mouth ity of 20:06: daily. [place] [address] Medical Branch clopidogrel 2020-0 Yes 75mg Take 75 mg Univers (PLAVIX) 75 5-20 by mouth ity of mg tablet 20:06: daily. [address] Branch amLODIPine 2020-0 Yes 10mg Take 10 mg U nivers (NORVASC) 5-20 by mouth ity of 10 mg 20:06: daily. [place] [address] Medical Branch POTASSIUM 2020-0 Yes 2{tbl} Take 2 Univ ers GLUCONATE 5-20 Tabs by ity of ORAL 20:06: mouth 2 [place] [address] (two) Medical times [place] daily. aspirin 81 2020-0 Yes 81mg Take 81 mg U nivers mg tablet 5-20 by mouth ity of 20:06: daily. [address] metoprolol 2020-0 Yes 25mg Take 25 mg U nivers tartrate 25 5-20 by mouth 2 it y of mg tablet 20:06: (two) [address] daily. [place] ergocalcife 2020-0 Yes Take by Uni vers rol, 5-20 mouth. ity of vitamin D2, 20:06: [place] (VITAMIN D 53 Medical ORAL) [place] lactated 2020-0 Yes 500mL at 75 Univers ringers IV 5-20 mL/hr, 500 ity of infusion 17:30: mL, IV [place] 500 mL 00 Infusion, Medical CONTINUOUS Branch , Starting Tue12/05/19 at 1230, Until Discontinu ed, Routine, PACU sodium 2020-0 Yes PRN, Univers chloride 5-20 Starting ity of (NS) 17:03: Tue [place] injection 12/05/19 at [facility] 1203, Branch Until Discontinu ed, Routine, Intra-op lidocaine-e 2020-0 Yes PRN, Univer s pinephrine 5-20 Starting ity o f (XYLOCAINE 17:03: Tue [place] W/EPINEPHRI 12/05/19 at [facility] NE) 2 1203, Branch %-1:200,000 Until injection Discontinu ed, Routine, Intra-op neomycin-po 2020-0 Yes PRN, Univer s lymyxin-dex 5-20 Starting ity of amethasone 17:01: Tue [place] (MAXITROL) 12/05/19 at [facility] ical 3.5 1201, [place] mg/g-10,000 Until unit/g-0.1 Discontinu % ed, ophthalmic Routine, ointment Intra-op gentamicin 2020-0 Yes PRN, Univers injection 5-20 Starting ity of 17:00: [facility] [place] 12/05/19 at [facility] 1200, [place] Until Discontinu ed, LASHONDA, Intra-op water for 2020-0 Yes PRN, Univers irrigation 5-20 Starting ity o f irrigation 16:55: Tue [place] solution 12/05/19 at Medic al 1155, [place] Until Discontinu ed, Routine, Intra-op Hyaluronida 2020-0 [...] Until Tue12/05/19 at 1211, Routine, Intra-op remifentani 2019-0 2020- No Intravenou Univers l (ULTIVA) 5-20 05-20 s, ONCE ity o f injection 16:50: 17:11 INTRA [place] 00 :01 PROCEDURE, Medical Starting Branch 12/05/19 at 1150, Until Tue12/05/19 at 1211, Routine, Intra-op lactated 2019-0 2020- No IV Univers ringers IV 5-20 [...] 5-20 Starting ity of VISCO 16:36: Tue [place] ELASTIC) 3 12/05/19 at Med ical %-4 %(0.5 1136, Branch mL) 1 % Until (0.55 mL) Discontinu intraocular ed, injection Routine, Intra-op dexamethaso 2020-0 Yes PRN, Univer s ne 5-20 Starting ity of (DECADRON 16:36: Tue PHOSPHATE) 00 12/05/19 at Med ical injection 1136, Branch Until Discontinu ed, Routine, Intra-op ceFAZolin 2020-0 Yes PRN, Univers (ANCEF) 5-20 Starting ity of injection 16:36: Tue [place] 12/05/19 at Medical 1136, Branch Until Discontinu ed, LASHONDA, Intra-op carbachoL 2020-0 Yes PRN, Univers (MIOSTAT) 5-20 Starting ity of 0.01 % 16:36: Tue intraocular 00 12/05/19 at [facility] dical injection 1136, Branch Until Discontinu ed, Routine, Intra-op bupivacaine 2020-0 Yes PRN, Univer s (preserv 5-20 Starting ity of free) 16:35: Tue (SENSORCAIN 00 12/05/19 at [facility] dicwy E MPF) 0.75 1135, Branch % (7.5 Until mg/mL) Discontinu injection ed, Routine, Intra-op balanced 2020-0 Yes PRN, Univers salt irrig 5-20 Starting ity o f soln comb1 16:35: Tue (BSS PLUS) 00 12/05/19 at [facility] ical ophthalmic 1135, Branch solution Until 500 mL bag Discontinu ed, Routine, Intra-op mydriatic 2019-0 2020- No .5mL 0.5 mL, Univ ers #5 5-20 05-20 Left Eye, ity of ophthalmic 15:30: 15:39 ONCE, 1 Chas as solution 00 :00 dose, Tue Medica l 0.5 mL 12/05/19 at [place] syringe 1030, Routine, DSU Pre-op lactated 2020-0 2020- No 500mL at 20 Univer s ringers IV 5-20 05-20 mL/hr, 500 it y of infusion 15:30: 15:39 mL, IV [place] 500 mL 00 :00 Infusion, [facility] ONCE, 1 Branch dose, [facility] 12/05/19 at 1030, Routine, DSU Pre-op clopidogrel 2020-0 Yes 75mg Take 75 mg Univers (PLAVIX) 75 5-19 by mouth ity of mg tablet 13:18: daily. [place] [facility] lisinopril 2020-0 Yes 5mg Take 5 mg Un shahram (ZESTRIL) 5 5-06 by mouth ity of mg tablet 18:51: daily. [place] [facility] atenolol 2020-0 Yes 25mg Take 25 mg Uni vers (TENORMIN) 5-06 by mouth 2 ity of 25 mg 18:51: (two) [place] tablet 29 times Medical daily. [place] ISOSORBIDE 2020-0 Yes 30mg Take 30 mg U nivers ORAL 5-06 by mouth ity of 18:51: daily. [place] [address] Medical Branch amLODIPine 2020-0 Yes 10mg Take 10 mg U nivers (NORVASC) 5-06 by mouth ity of 10 mg 18:51: daily. [facility] 29 Medical Branch POTASSIUM 2020-0 Yes 2{tbl} Take 2 Univ ers GLUCONATE 5-06 Tabs by ity of ORAL 18:51: mouth 2 [place] [address] (two) Medical times Branch daily. aspirin 81 2020-0 Yes 81mg Take 81 mg U nivers mg tablet 5-06 by mouth ity of 18:51: daily. [place] [address] Medical Branch metoprolol 2020-0 Yes 25mg Take 25 mg U nivers tartrate 25 5-06 by mouth 2 it y of mg tablet 18:51: (two) [address] daily. Branch ergocalcife 2020-0 Yes Take by Uni vers rol, 5-06 mouth. ity of vitamin D2, 18:51: [place] (VITAMIN D 29 Medical ORAL) Branch lisinopril 2020-0 Yes 5mg Take 5 mg Un shahram (ZESTRIL) 5 5-06 by mouth ity of mg tablet 18:51: daily. [place] [address] Medical Branch atenolol 2020-0 Yes 25mg Take 25 mg Uni vers (TENORMIN) 5-06 by mouth 2 ity of 25 mg 18:51: (two) [place] tablet 29 [facility] daily. Branch ISOSORBIDE 2020-0 Yes 30mg Take 30 mg U nivers ORAL 5-06 by mouth ity of 18:51: daily. [place] [address] Medical Branch clopidogrel 2020-0 Yes 75mg Take 75 mg Univers (PLAVIX) 75 5-06 by mouth ity of mg tablet 18:51: daily. [place] [address] Medical Branch amLODIPine 2020-0 Yes 10mg Take 10 mg U nivers (NORVASC) 5-06 by mouth ity of 10 mg 18:51: daily. [place] tablet 29 Medical Branch POTASSIUM 2020-0 Yes 2{tbl} Take 2 Univ ers GLUCONATE 5-06 Tabs by ity of ORAL 18:51: mouth 2 [place] [address] (two) Medical times [place] daily. aspirin 81 2020-0 Yes 81mg Take 81 mg U nivers mg tablet 5-06 by mouth ity of 18:51: daily. [place] 29 Medical Branch metoprolol 2020-0 Yes 25mg Take 25 mg U nivers tartrate 25 5-06 by mouth 2 it y of mg tablet 18:51: (two) [place] 29 times Medical daily. Branch ergocalcife 2020-0 Yes Take by Uni vers rol, 5-06 mouth. ity of vitamin D2, 18:51: [place] (VITAMIN D 29 Medical ORAL) Branch lactated [...] neomycin-po 2020-0 Yes PRN, Univer s lymyxin-dex - Starting ity of amethasone 14:29: Tue11/21/19 [place] (MAXITROL) 00 at 0929, Medic al 3.5 Until Branch mg/g-10,000 Discontinu unit/g-0.1 ed, % Routine, ophthalmic Intra-op ointment lidocaine-e 2020-0 Yes PRN, Univer s pinephrine 5- Starting ity o f (XYLOCAINE 14:29: Tue11/21/19 [place] W/EPINEPHRI 00 at 0929, [facility] prashant NE) 2 Until Branch %-1:200,000 Discontinu injection ed, Routine, Intra-op Hyaluronida 2020-0 Yes PRN, Univer s se, Human 5- Starting ity of Recomb. 14:28: Tue11/21/19 [place] (HYLENEX) 00 at 0928, Medica l injection Until Branch Discontinu ed, Routine, Intra-op gentamicin 2020-0 Yes PRN, Univers injection 5-06 Starting ity of 14:28: Tue11/21/19 [place] 00 at 0928, Medical Until Branch Discontinu ed, LASHONDA, Intra-op EPINEPHrine 2020-0 Yes PRN, Univer s 1:1,000 (1 11-20 Starting ity o f mg/mL) 14:27: Tue11/21/19 [place] (ADRENALIN) 00 at 09, [facility] injection Until Branch Discontinu ed, Routine, Intra-op DUOVISC 2020-0 Yes PRN, Univers (DUOVISC 11-20 Starting ity of VISCO 14:27: Tue11/21/19 [place] ELASTIC) 3 00 at 09, Medic al %-4 %(0.5 Until Branch mL) 1 % Discontinu (0.55 mL) ed, intraocular Routine, injection Intra-op dexamethaso 2020-0 Yes PRN, Univer s ne 11-20 Starting ity of (DECADRON 14:: Tue11/21/19 [place] PHOSPHATE) 00 at 09, Medic al injection Until Branch Discontinu ed, Routine, Intra-op ceFAZolin 2020-0 Yes PRN, Univers (ANCEF) 11-20 Starting ity of injection 14:26: Tue11/21/19 [place] 00 at 09, Medical Until Branch Discontinu ed, LASHONDA, Intra-op carbachoL 2020-0 Yes PRN, Univers (MIOSTAT) 11-20 Starting ity of 0.01 % 14:26: Tue11/21/19 [place] intraocular 00 at 0926, [facility] injection Until Branch Discontinu ed, Routine, Intra-op bupivacaine 2020-0 Yes PRN, Univer s (preserv 11-20 Starting ity of free) 14:: Tue11/21/19 [place] (SENSORCAIN 00 at 09, [facility] E MPF) 0.75 Until Branch % (7.5 Discontinu mg/mL) ed, injection Routine, Intra-op balanced 2020-0 Yes PRN, Univers salt irrig 11-20 Starting ity o f soln comb1 14:25: Tue11/21/19 [place] (BSS PLUS) 00 at 09, Medic al ophthalmic Until Branch solution Discontinu [...] mouth ity of mg tablet 13:44: daily. [address] ISOSORBIDE 2020-0 Yes 30mg Take 30 mg U nivers ORAL 5-05 by mouth ity of 13:44: daily. [address] clopidogrel 2020-0 Yes 75mg Take 75 mg Univers (PLAVIX) 75 5-05 by mouth ity of mg tablet 13:44: daily. [address] amLODIPine 2020-0 Yes 10mg Take 10 mg U nivers (NORVASC) 5-05 by mouth ity of 10 mg 13:44: daily. [address] lisinopril 2020-0 Yes 5mg Take 5 mg Un shahram (ZESTRIL) 5 5-05 by mouth ity of mg tablet 13:44: daily. [address] ISOSORBIDE 2020-0 Yes 30mg Take 30 mg U nivers ORAL 5-05 by mouth ity of 13:44: daily. [address] clopidogrel 2020-0 Yes 75mg Take 75 mg Univers (PLAVIX) 75 5-05 by mouth ity of mg tablet 13:44: daily. [address] amLODIPine 2020-0 Yes 10mg Take 10 mg U nivers (NORVASC) 5-05 by mouth ity of 10 mg 13:44: daily. [facility] 30 [facility] lisinopril 2020-0 Yes 5mg Take 5 mg Un shahram (ZESTRIL) 5 5-05 by mouth ity of mg tablet 13:44: daily. [address] ISOSORBIDE 2020-0 Yes 30mg Take 30 mg U nivers ORAL 5-05 by mouth ity of 13:44: daily. [address] clopidogrel 2020-0 Yes 75mg Take 75 mg Univers (PLAVIX) 75 5-05 by mouth ity of mg tablet 13:44: daily. [address] amLODIPine 2020-0 Yes 10mg Take 10 mg U nivers (NORVASC) 5-05 by mouth ity of 10 mg 13:44: daily. [facility] 30 Medical Branch lisinopril 2019-0 Yes 5mg Take 5 mg Un shahram (ZESTRIL) 5 5-05 by mouth ity of mg tablet 13:44: daily. [place] 30 Medical Branch ISOSORBIDE 2020-0 Yes 30mg Take 30 mg U nivers ORAL 5-05 by mouth ity of 13:44: daily. [place] [address] Medical Branch clopidogrel 2019-0 Yes 75mg Take 75 mg Univers (PLAVIX) 75 5-05 by mouth ity of mg tablet 13:44: daily. [place] [address] Medical Branch amLODIPine 2019-0 Yes 10mg Take 10 mg U nivers (NORVASC) 5-05 by mouth ity of 10 mg 13:44: daily. [place] tablet 30 Medical Branch metoprolol 2019-0 Yes 25mg Take 25 mg U nivers tartrate 25 5-05 by mouth 2 it y of mg tablet 13:44: (two) [place] 29 times Medical daily. Branch ergocalcife 0 Yes Take by Uni vers rol, 5-05 mouth. ity of vitamin D2, 13:44: [place] (VITAMIN D 29 Medical ORAL) Branch Metoprolol Metoprolol Yes Denny 1 capsule Common Succinate Succinate 2-05 Abdalla Spir it 00:00: - [facility] Metoprolol Metoprolol 2018-07 Yes Denny 1 tablet Common Tartrate Tartrate 1- Abdalla with food S pirit 00:00: - [facility] amLODIPine Yes 10mg Take 10 mg U nivers (NORVASC) 3-07 by mouth ity of 10 mg 18:54: daily. [facility] 43 Medical Branch POTASSIUM Yes 2{tbl} Take 2 Univ ers GLUCONATE 3-07 Tabs by ity of ORAL 18:54: mouth 2 [place] [address] (two) Medical times [place] daily. aspirin 81 Yes 81mg Take 81 mg U nivers mg tablet 3-07 by mouth ity of 18:54: daily. [address] POTASSIUM Yes 2{tbl} Take 2 Univ ers GLUCONATE 3-07 Tabs by ity of ORAL 18:54: mouth 2 [place] [address] (two) Medical times [place] daily. aspirin 81 Yes 81mg Take 81 mg U nivers mg tablet 3-07 by mouth ity of 18:54: daily. [address] POTASSIUM Yes 2{tbl} Take 2 Univ ers GLUCONATE 3-07 Tabs by ity of ORAL 18:54: mouth 2 [place] [address] ([facility]) [facility] daily. aspirin 81 Yes 81mg Take 81 mg U nivers mg tablet 3-07 by mouth ity of 18:54: daily. [address] POTASSIUM Yes 2{tbl} Take 2 Univ ers GLUCONATE 3-07 Tabs by ity of ORAL 18:54: mouth 2 [place] [address] ([facility]) [facility] daily. aspirin 81 Yes 81mg Take 81 mg U nivers mg tablet 3-07 by mouth ity of 18:54: daily. [address] POTASSIUM Yes 2{tbl} Take 2 Univ ers GLUCONATE 3-07 Tabs by ity of ORAL 18:54: mouth 2 [place] [address] ([facility] daily. aspirin 81 Yes 81mg Take 81 mg U nivers mg tablet 3-07 by mouth ity of 18:54: daily. [address] ISOSORBIDE Yes 30mg Take 30 mg U nivers ORAL 3-07 by mouth ity of 18:54: daily. [address] clopidogrel Yes 75mg Take 75 mg Univers (PLAVIX) 75 3-07 by mouth ity of mg tablet 18:54: daily. [address] atenolol Yes 25mg Take 25 mg Uni vers (TENORMIN) 3-07 by mouth 2 ity of 25 mg 18:54: (two) [place] tablet 42 times Medical daily. [place] atenolol Yes 25mg Take 25 mg Uni vers (TENORMIN) 3-07 by mouth 2 ity of 25 mg 18:54: (two) [place] tablet 42 times Medical daily. [place] atenolol Yes 25mg Take 25 mg Uni vers (TENORMIN) 3-07 by mouth 2 ity of 25 mg 18:54: (two) [place] tablet 42 times Medical daily. [place] atenolol Yes 25mg Take 25 mg Uni vers (TENORMIN) 3-07 by mouth 2 ity of 25 mg 18:54: (two) [place] tablet 42 times Medical daily. [place] atenolol Yes 25mg Take 25 mg Uni vers (TENORMIN) 3-07 by mouth 2 ity of 25 mg 18:54: (two) [place] tablet 42 times Medical daily. Branch lisinopril Yes 5mg Take 5 mg Un shahram (ZESTRIL) 5 3-07 by mouth ity of mg tablet 18:54: daily. [place] [address] Medical Branch Crestor Crestor Yes Denny 1 tablet Com mon Abdalla [facility] Meloxicam Meloxicam Yes Denny 1 tablet Common Abdalla Spirit [facility] Aspir-81 Aspir-81 Yes Denny 1 tablet C ommon Abdalla [facility] Alendronate Alendronate Yes Denny 1 tablet Common Sodium Sodium Abdalla 30 minutes Spir it before the [facility] first [facility] Medical or Saxis medicine of the day with plain water Xopenex Xopenex Yes Denny 3 ml [facility] Gabapentin Gabapentin Yes Denny 1 capsule [facility] Meloxicam Meloxicam Yes Denny TAKE 1 C ommon Abdalla TABLET Spirit EVERY DAY [facility] Metoprolol Metoprolol Yes Denny TAKE 1 Common Succinate Succinate Abdalla TABLET Sp luba ER ER EVERY DAY [facility] Alendronate Alendronate No Alendronat Sodium 70 Sodium [...] MG le} 300 MG Gabapentin Gabapentin No Gabapentin 300 MG 300 MG 300 MG Alendronate Alendronate No Alendronat Sodium 70 Sodium 70 e Sodium MG MG 70 MG Xopenex Xopenex No 3{ml} Xopenex 1.25 [...] Meloxicam 7.5 MG 7.5 MG 7.5 MG Rosuvastati Rosuvastati No Rosuvastat n Calcium n Calcium in Calcium 40 MG 40 MG 40 MG Metoprolol Metoprolol No Metoprolol Succinate Succinate [...] Succinate 50 MG 50 MG 50 MG Gabapentin Gabapentin No Gabapentin 300 MG 300 MG 300 MG traMADol traMADol No 1{table TID traMADol HCl 50 MG HCl 50 MG t_as_ne HCl 50 MG eded} Meloxicam Meloxicam No 1{table Meloxicam 7.5 MG 7.5 MG t} 7.5 MG Aspir-81 81 Aspir-81 81 No 1{table QD Aspir-81 MG MG t} 81 MG Alendronate Alendronate No Alendronat Sodium 70 [...] Succinate 50 MG 50 MG 50 MG Gabapentin Gabapentin No 1{capsu BID Gabapentin 300 MG 300 MG le} 300 MG Meloxicam Meloxicam No Meloxicam 7.5 MG 7.5 MG 7.5 MG Crestor 40 Crestor 40 No 1{table QD Crestor 40 MG MG t} MG Metoprolol Metoprolol No 1{capsu QD Metoprolol Succinate Succinate le} Succinate 50 MG 50 MG 50 MG Gabapentin Gabapentin No Gabapentin 300 MG 300 MG 300 MG traMADol traMADol No 1{table TID traMADol HCl 50 MG HCl 50 MG t_as_ne HCl 50 MG eded} Meloxicam Meloxicam No 1{table Meloxicam 7.5 MG 7.5 MG t} 7.5 MG Aspir-81 81 Aspir-81 81 No 1{table QD Aspir-81 MG MG t} 81 MG Alendronate Alendronate No Alendronat Sodium 70 [...] Succinate 50 MG 50 MG 50 MG Gabapentin Gabapentin No 1{capsu BID Gabapentin 300 MG 300 MG le} 300 MG Meloxicam Meloxicam No Meloxicam 7.5 MG 7.5 MG 7.5 MG Gabapentin Gabapentin No 1{capsu BID Gabapentin [...] Observation Time Observation Value Comments Source height 2022-06-25 08:40:00 60 [in_i] [facility] [place] weight 2022-06-25 08:40:00 97.7 [lb_av] [facility] [place] temperature 2022-06-25 08:40:00 97.3 [degF] [facility] [place] bmi 2022-06-25 08:40:00 19.08 kg/m2 [facility] [place] oximetry 2022-06-25 08:40:00 99 % [facility] [place] respiratory rate 2022-06-25 08:40:00 18 /min Comm on [facility] blood pressure 2022-06-25 08:40:00 124 mm[Hg] [facility] - systolic [facility] blood pressure 2022-06-25 08:40:00 64 mm[Hg] [facility] - diastolic [facility] height 2022-03-25 10:20:00 60 [in_i] [facility] weight 2022-03-25 10:20:00 99.8 [lb_av] [facility] temperature 2022-03-25 10:20:00 97.7 [degF] Common [facility] bmi 2022-03-25 10:20:00 19.49 kg/m2 [facility] [place]ximetry 2022-03-25 10:20:00 99 % [facility] [place] respiratory rate 2022-03-25 10:20:00 18 /min Comm on [facility] blood pressure 2022-03-25 10:20:00 130 mm[Hg] Common [facility] - systolic [facility] blood pressure 2022-03-25 10:20:00 73 mm[Hg] Common [facility] - diastolic [facility] height 2021-12-24 10:50:00 60 [in_i] Common [facility] weight 2021-12-24 10:50:00 101.6 [lb_av] Common [facility] temperature 2021-12-24 10:50:00 97.6 [degF] Common [facility] bmi 2021-12-24 10:50:00 19.84 kg/m2 Common S [facility] oximetry 2021-12-24 10:50:00 98 % [facility] [place] respiratory rate 2021-12-24 10:50:00 18 /min Comm on [facility] blood pressure 2021-12-24 10:50:00 135 mm[Hg] Common [facility] - systolic [facility] blood pressure 2021-12-24 10:50:00 79 mm[Hg] [facility] - diastolic [facility] height 2021-11-12 09:20:00 60 [in_i] Common [facility] weight 2021-11-12 09:20:00 97.8 [lb_av] [facility] temperature 2021-11-12 09:20:00 98.2 [degF] Common S pirit [facility] bmi 2021-11-12 09:20:00 19.1 kg/m2 Common [facility] [place] 2021-11-12 09:20:00 99 % Common [facility] respiratory rate 2021-11-12 09:20:00 17 /min Comm on [facility] blood pressure 2021-11-12 09:20:00 138 mm[Hg] [facility] - systolic [facility] blood pressure 2021-11-12 09:20:00 76 mm[Hg] [facility] - diastolic [facility] height 2021-11-12 09:20:00 60 [in_i] Common [facility] weight 2021-11-12 09:20:00 97.8 [lb_av] [facility] temperature 2021-11-12 09:20:00 98.2 [degF] Common S pirit [facility] bmi 2021-11-12 09:20:00 19.1 kg/m2 Common S pirit [facility] oximetry 2021-11-12 09:20:00 99 % Common S [facility] respiratory rate 2021-11-12 09:20:00 17 /min Comm on [facility] blood pressure 2021-11-12 09:20:00 138 mm[Hg] [facility] - systolic [facility] blood pressure 2021-11-12 09:20:00 76 mm[Hg] [facility] - diastolic [facility] height 2021-08-31 10:00:00 60 [in_i] Common S pirit [facility] weight 2021-08-31 10:00:00 107.2 [lb_av] Common [facility] temperature 2021-08-31 10:00:00 96.2 [degF] Common S pirit [facility] bmi 2021-08-31 10:00:00 20.93 kg/m2 Common S pirit - [facility] blood pressure 2021-08-31 10:00:00 115 mm[Hg] [facility] - systolic [facility] blood pressure 2021-08-31 10:00:00 63 mm[Hg] [facility] - diastolic [facility] height 2021-04-28 14:10:00 60 [in_i] [facility] weight 2021-04-28 14:10:00 103.2 [lb_av] [facility] temperature 2021-04-28 14:10:00 96.8 [degF] [facility] bmi 2021-04-28 14:10:00 20.15 kg/m2 [facility] oximetry 2021-04-28 14:10:00 96 % [facility] respiratory rate 2021-04-28 14:10:00 18 /min Comm on [facility] blood pressure 2021-04-28 14:10:00 120 mm[Hg] Common [facility] - systolic [facility] blood pressure 2021-04-28 14:10:00 62 mm[Hg] [facility] - diastolic [facility] height 2021-04-28 14:00:00 60 [in_i] Common [facility] weight 2021-04-28 14:00:00 103.2 [lb_av] [facility] temperature 2021-04-28 14:00:00 96.8 [degF] Common [facility] bmi 2021-04-28 14:00:00 20.15 kg/m2 Common [facility] [place] 2021-04-28 14:00:00 96 % Common S pirit - [facility] respiratory rate 2021-04-28 14:00:00 18 /min Comm on [facility] - [facility] blood pressure 2021-04-28 14:00:00 120 mm[Hg] [facility] - systolic [facility] blood pressure 2021-04-28 14:00:00 62 mm[Hg] [facility] - diastolic [facility] Systolic blood 2019-12-05 17:30:00 170 mm[Hg] Univer sity of pressure [facility] Diastolic blood 2019-12-05 17:30:00 66 mm[Hg] Unive rsity of pressure [facility] Heart rate 2019-12-05 17:30:00 64 /min Universi ty of [facility] Respiratory rate 2019-12-05 17:30:00 15 /min Univ ersity [facility] Oxygen saturation in 2019-12-05 17:30:00 97 /min University of Arterial blood by [facility] Pulse oximetry Branch Body temperature 2019-12-05 17:14:00 36.06 Gabbi [facility] Body height 2019-12-04 13:00:00 149.9 cm [facility] Body weight 2019-12-04 13:00:00 49.896 kg [facility] BMI 2019-12-04 13:00:00 22.22 kg/m2 Universi ty of [facility] Systolic blood 2019-12-05 17:30:00 170 mm[Hg] Univer sity of pressure [facility] Diastolic blood 2019-12-05 17:30:00 66 mm[Hg] Unive rsity of pressure [facility] Heart rate 2019-12-05 17:30:00 64 /min [facility] Respiratory rate 2019-12-05 17:30:00 15 /min Univ [facility] Oxygen saturation in 2019-12-05 17:30:00 97 /min University of Arterial blood by [place] [employer] [facility] Pulse oximetry Branch Body temperature 2019-12-05 17:14:00 36.06 Gabbi Univ ersity of [facility] Body height 2019-12-04 13:00:00 149.9 cm [facility] Body weight 2019-12-04 13:00:00 49.896 kg [facility] BMI 2019-12-04 13:00:00 22.22 kg/m2 [facility] Respiratory rate 2019-12-05 17:09:00 15 /min Univ [facility] Respiratory rate 2019-12-05 17:09:00 15 /min Univ [facility] Systolic blood 2019-11-21 15:55:00 180 mm[Hg] Univer sity of pressure [facility] Diastolic blood 2019-11-21 15:55:00 69 mm[Hg] Unive rsity of pressure [facility] Heart rate 2019-11-21 15:55:00 60 /min [facility] Respiratory rate 2019-11-21 15:55:00 17 /min Univ [facility] Oxygen saturation in 2019-11-21 15:55:00 98 /min University of Arterial blood by [place] [employer] [facility] Pulse oximetry Branch Body temperature 2019-11-21 15:20:00 36.56 Gabbi [facility] Body height 2019-11-21 13:00:00 149.9 cm [facility] Body weight 2019-11-21 13:00:00 49.896 kg [facility] BMI 2019-11-21 13:00:00 22.22 kg/m2 [facility] Systolic blood 2019-11-21 15:55:00 180 mm[Hg] Univer sity of pressure [facility] Diastolic blood 2019-11-21 15:55:00 69 mm[Hg] Unive rsity of pressure [facility] Heart rate 2019-11-21 15:55:00 60 /min [facility] Respiratory rate 2019-11-21 15:55:00 17 /min Univ [facility] Oxygen saturation in 2019-11-21 15:55:00 98 /min [facility] Arterial blood by [place] [facility] Pulse oximetry Branch Body temperature 2019-11-21 15:20:00 36.56 Gabbi [facility] Body height 2019-11-21 13:00:00 149.9 cm [facility] Body weight 2019-11-21 13:00:00 49.896 kg [facility] BMI 2019-11-21 13:00:00 22.22 kg/m2 [facility] Medical Branch Procedures Procedure Date / Time Performing Clinician Source Performed CONSENT/REFUSAL FOR 2019-12-04 13:54:31 [facility] DIAGNOSIS AND TREATMENT [facility] ASSIGNMENT OF BENEFITS 2019-12-04 13:54:12 [facility] CBC WITH DIFFERENTIAL 2019-11-16 15:49:00 [facility] [place] CONSENT/REFUSAL FOR 2019-11-16 15:25:37 Doctor Unassigned, [facility] DIAGNOSIS AND TREATMENT [facility] ASSIGNMENT OF BENEFITS 2019-11-16 15:25:15 Doctor [facility]igned, [facility] NOTICE OF BILLING 2019-11-16 15:24:47 Doctor Unassigned, [facility] PRACTICES FOR MEDICARE [facility] PATIENTS [facility] PATIENT FINANCIAL 2019-11-16 15:24:28 Doctor [facility]igned, [facility] POL[facility] NO SHOW OR MISSED 2019-11-16 15:24:05 Doctor Unassigned, [facility] APPOINTMENT POLICY [facility] ACKNOWLEDGEMENT NOTICE OF PRIVACY 2019-11-16 15:23:43 Doctor Unassigned, [facility] PRACTICES [facility] CONSENT/REFUSAL FOR 2019-11-16 15:23:22 Doctor Unassigned, [facility] DIAGNOSIS AND TREATMENT [facility] ASSIGNMENT OF BENEFITS 2019-11-16 15:22:59 Doctor Unassigned, [facility] Encounters Start End Encounter Admission Attending Care Care Encounter Source Date/Time Date/Time Type Type Clinicians Facility Department ID 2022-06-26 [facility] [id number] Common 06:48:01 [facility] 2022-06-23 Out[facility], [facility] [id number] Common 08:53:00 [facility] 2022-03-26 Out[facility] Abdalla, [facility] [id number] Common 08:26:00 [facility] 2022-03-25 Outpatient Abdalla, STLMLC STLMLC [id number] Common 10:11:00 [facility] 2022-03-24 Outpatient Abdalla, STLMLC STLMLC [id number] Common 10:15:07 [facility] 2022-01-25 Outpatient Abdalla, STLMLC STLMLC [id number] Common 13:50:00 [facility] 2021-12-25 Outpatient Abdalla, STLMLC STLMLC [id number] Common 07:27:00 [facility] 2021-11-13 Outpatient Abdalla, STLMLC STLMLC [id number] Common 08:45:02 [facility] 2021-11-09 Outpatient Abdalla, STLMLC STLMLC [id number] Common 13:41:00 [facility] 2021-09-29 Outpatient Abdalla, STLMLC STLMLC [id number] Common 15:38:00 [facility] 2021-08-12 Outpatient Abdalla, STLMLC STLMLC [id number] Common 14:21:27 [facility] 87165 [facility] 2021-08-12 Outpatient Abdalla, STLMLC STLMLC [id number] Common 14:00:42 [facility] 88188 [facility] 2021-08-12 Outpatient Abdalla, STLMLC STLMLC [id number] Common 13:24:30 [facility]enny 05272 [facility] 2021-08-12 Outpatient Abdalla, STLMLC STLMLC [id number] Common 12:41:17 [facility]enny 43023 [facility] 2021-08-12 Outpatient Abdalla, STLMLC STLMLC [id number] Common 11:53:12 [facility] 52082 [facility] 2021-08-12 Outpatient Abdalla, STLMLC STLMLC [id number] Common 11:50:53 [facility] 53563 [facility] 2021-08-12 Outpatient Abdalla, STLMLC STLMLC [id number] Common 11:29:14 [facility] 93508 [facility] 2021-08-12 Outpatient Abdalla, STLMLC STLMLC [id number] Common 11:27:37 [facility] 90149 [facility] 2021-08-12 Outpatient Abdalla, STLMLC STLMLC [id number] Common 11:18:10 [facility] 52735 [facility] 2021-08-12 Outpatient Abdalla, STLMLC STLMLC [id number] Common 11:03:30 [facility] 72931 [facility] 2021-08-12 Outpatient Ariane Thomas STLMLC STLC [id number] - Common 11:02:51 14713 [facility] 2021-05-14 Outpatient ESTUARDO [facility] [id number] Univers 21:11:39 [facility] 2021-05-14 [facility] [id number] Univers 19:37:31 [facility] 2022-08-03 2022-08-03 Outpatient MHIE MHIE [id number] Memoria 15:45:00 15:45:00 00 paramjit Bose 2022-07-08 2022-07-08 Outpatient MHIE MHIE [id number] [place]oria 15:45:00 15:45:00 01 paramjit Bose 2022-07-07 2022-07-07 (TEL) STLMLC STLMLC [id number] Co mmon 00:00:00 00:00:00 [facility] 2022-06-25 2022-06-25 OFFICE STLMLC STLMLC [id number] Co mmon 00:00:00 00:00:00 VISIT [facility] LEVEL 4 [facility] 2022-06-23 2022-06-23 (TEL) STLMLC STLMLC [id number] Co mmon 00:00:00 00:00:00 [facility] 2022-03-25 2022-03-25 OFFICE STLMLC STLMLC [id number] Co mmon 00:00:00 00:00:00 VISIT [facility] ESTAB PT - [facility] LEVEL 4 [facility] 2022-02-15 2022-02-15 Outpatient UZMA ROGERS [id number] [place] 00:00:00 00:00:00 ANANDA chong [facility] Outre h Program 2021-12-24 2021-12-24 OFFICE STLMLC STLMLC [id number] Co mmon 00:00:00 00:00:00 VISIT [facility] ESTAB PT - [facility] LEVEL 4 [facility] 2021-11-12 2021-11-12 OFFICE STLMLC STLMLC [id number] Co mmon 00:00:00 00:00:00 VISIT EST Spir it PT LEVEL 3 - [facility] 2021-11-12 2021-11-12 SUB ANNUAL STLMLC STLMLC [id number] Common 00:00:00 00:00:00 MCR [facility] WELLNESS - CHI VISIT [facility] 2021-09-25 2021-09-25 (TEL) STLMLC STLMLC [id number] Co mmon 00:00:00 00:00:00 [facility] 2021-09-11 2021-09-11 (TEL) STLMLC STLMLC [id number] Co mmon 00:00:00 00:00:00 [facility] 2021-09-02 2021-09-02 (TEL) STLMLC STLMLC [id number] Co mmon 00:00:00 00:00:00 [facility] 2021-08-31 2021-08-31 OFFICE STLMLC STLMLC [id number] Co mmon 00:00:00 00:00:00 VISIT EST Spir it PT LEVEL 3 - [facility] 2021-04-28 2021-04-28 (TEL) STLMLC STLMLC [id number] Co mmon 00:00:00 00:00:00 [facility] - [facility] 2021-04-28 2021-04-28 OFFICE STLMLC STLMLC [id number] Co mmon 00:00:00 00:00:00 VISIT Spirit ESTAB PT - CHI LEVEL 4 [facility] 2021-04-28 2021-04-28 (TEL) STLMLC STLMLC [id number] Co mmon 00:00:00 00:00:00 [facility] 2021-04-28 2021-04-28 SUB ANNUAL STLMLC STLMLC [id number] Common 00:00:00 00:00:00 MCR [facility] VISIT [facility] 2021-01-26 2021-01-26 Outpatient STLMLC STLMLC [id number] Common 00:00:00 00:00:00 [facility] 2021-01-13 2021-01-13 Outpatient STLMLC STLMLC [id number] Common 00:00:00 00:00:00 [facility] 2020-10-27 2020-10-27 Outpatient STLMLC STLMLC [id number] Common 00:00:00 00:00:00 [facility] 2020-10-02 2020-10-02 Outpatient STLMLC STLMLC [id number] Common 00:00:00 00:00:00 [facility] 2020-09-30 2020-09-30 Outpatient STLMLC STLMLC [id number] Common 00:00:00 00:00:00 [facility] 2020-09-28 2020-09-28 Outpatient STLMLC STLMLC [id number] Common 00:00:00 00:00:00 [facility] 2020-07-30 2020-07-30 Outpatient STLMLC STLMLC [id number] Common 00:00:00 00:00:00 [facility] 2020-07-28 2020-07-28 Outpatient STLMLC STLMLC [id number] Common 00:00:00 00:00:00 [facility] 2020-05-06 2020-05-06 Outpatient STLMLC STLMLC [id number] Common 00:00:00 00:00:00 [facility] 2020-04-24 2020-04-24 Outpatient STLMLC STLMLC [id number] Common 00:00:00 00:00:00 [facility] 2020-04-24 2020-04-24 Outpatient STLMLC STLMLC [id number] Common 00:00:00 00:00:00 [facility] 2020-04-17 2020-04-17 Outpatient STLMLC STLMLC [id number] Common 00:00:00 00:00:00 [facility] 2020-01-16 2020-01-16 Outpatient Frederick Mackt [id number] Common 08:45:00 08:45:00 Leadhit Spir Ruangguru [facility] 2019-12-05 2019-12-05 [facility] [id number] [facility] 10:22:39 13:03:00 Encounter Greyson Ulloa [id number] [place] [id number] [address] 2019-12-05 2019-12-05 [facility] [id number] 10:22:39 13:03:00 Encounter Greyson [place] [id number] [place] 4.2.7.2.686 Surgical [id number] [place] [address] 2019-12-05 2019-12-05 Anesthesia Nidia Nolasco [facility] 1.2.840 .114 [id number] 11:44:00 12:10:00 Prabhakar Sandoval [id number] [place] [id number] Surgical [id number] [place] 020 2019-12-05 2019-12-05 Anesthesia Nidia Nolasco [facility] 1.2.840 .114 [id number] [facility] 11:44:00 12:10:00 Prabhakar Sandoval [id number] [place] [id number] [facility] [place] 2019-12-04 2019-12-04 Laboratory Only, [facility] [id number] 08:03:07 08:18:07 Only Test [place] [id number] [place] 4.2.7.2.686 Professio [id number] [address] 2019-12-04 2019-12-04 Laboratory Only, [facility] Test [facility] 1.2.840. 114 [id number] Univers 08:03:07 08:18:07 Only Greyson Moore Laila 350.1.13.1 0 [place] [id number] Me dical [address] 2019-12-04 2019-12-04 Outpatient R [facility] [id number] Univers 08:15:00 08:15:00 GREYSON ity [facility] 2019-11-21 2019-11-21 [facility] [id number] 07:48:00 11:30:00 Encounter Rgeyson Alyx [place] [id number] [place] 4.2.7.2.686 Surgical [id number] [place] [address] 2019-11-21 2019-11-21 [facility] [id number] Univers 07:48:00 11:30:00 Encounter Greyson Alyx [place] [id number] [place] [id number] Med ical Center [address] [place] [address] 2019-11-20 2019-11-20 Outpatient R [facility] [id number] Univers 09:30:00 09:30:00 ity [facility] 2019-11-20 2019-11-20 Laboratory Nurse, [facility] 1.2.840.114 [id number] 08:56:58 09:07:43 Only General [place] [id number] Surgery [place] 4.2.7.2.686 Professio [id number] [address] 2019-11-20 2019-11-20 Laboratory Nurse, [facility] General Surgery [facility] 1.2.840.114 [id number] Univers 08:56:58 09:07:43 Only Greyson Moore Laila 350.1.13.1 0 [place] [id number] Wy dical [address] 2019-11-20 2019-11-20 Telephone Estuardo [facility] 1.2.840.114 [id number] 00:00:00 00:00:00 Greyson Ulloa [id number] [place] 4.2.7.2.686 Surgical [phone] [place] [address] 2019-11-20 2019-11-20 Telephone Estuardo [facility] 1.2.840.114 [id number] Univers 00:00:00 00:00:00 Greyson Ulloa [id number] [place] [id number] [address] 2019-11-16 2019-11-16 Counseling Program Leader Alonzo, Adc Lab Main [facility] 1.2.8 40.114 [id number] Univers 10:33:59 10:48:59 Visit Greyson Moore 350.1.13.1 0 [place] [phone] Wy dical [address] 2019-11-16 2019-11-16 [facility]patient [facility] [id number] Univers 10:45:00 10:45:00 GREYSON tolentino [facility] 2019-11-12 2019-11-12 [facility] [id number] Common 15:30:00 15:30:00 [address] Spir it Drive [facility] 2019-08-20 2019-08-20 Outpatient [facility] [id number] Common 14:48:00 14:48:00 t Panther Burn [address] Spir it Drive [facility] 2019-08-13 2019-08-13 Out[facility] [id number] Common 15:30:00 15:30:00 t Panther Burn [address] Spir it Drive [facility] 2016-07-22 2016-07-22 Outpatient Marcia MMG MMG [id number] [place] 10:45:00 10:45:00 0105 [facility] [...] See_Comment [Au tomated message] The system which Ezuza nerated this result transmit radha reference range: [...] 33.3 g/dL 31.6-35.1 RDW-SD (test code = 74933-2) 46.0 fL 39-49.9 RDW-CV (test code = 788-0) 13.2 % 12-15.5 PLT (test code = 777-3) See_Comment [Au tomated message] The system which Ezuza nerated this result transmit radha reference range: 166 - 35 8 10*3/?L. The reference range was not used to interpret th is result as normal/abnormal . MPV (test code = 10078-8) 11.8 fL 9.5-12.9 NRBC/100 WBC (test code = See_Comment [ Automated message] The [id number]) system which Ezuza nerated this result transmit radha reference range: 0.0 - 10 .0 /100 WBCs. The reference r angela was not used to interpr et this result as normal/abnor mal. NRBC x10^3 (test code = <0.01 See_Comment [Au tomated message] The [id number]) system which Ezuza nerated this result transmit radha reference range: 10*3/?L. The reference range was not u sed to interpret this result as normal/abnormal . GRAN MAT (NEUT) % (test code 57.0 % = 770-8) IMM GRAN % (test code = 0.40 % 7641309245) LYMPH % (test code = 736-9) 29.6 % MONO % (test code = 5905-5) 9.6 % EOS % (test code = 713-8) 2.2 % BASO % (test code = 706-2) 1.2 % GRAN MAT x10^3(ANC) (test 5.49 10*3/uL 1.88-7.09 code = 1228915500) IMM GRAN x10^3 (test code = 0.04 10*3/uL 0-0.06 2405432511) LYMPH x10^3 (test code = 2.86 10*3/uL 1.32-3.29 731-0) MONO x10^3 (test code = 0.93 10*3/uL 0.33-0.92 H 742-7) EOS x10^3 (test code = 0.21 10*3/uL 0.03-0.39 711-2) BASO x10^3 (test code = 0.12 10*3/uL 0.01-0.07 H 704-7) Lab Interpretation (test Abnormal code = 66049-1) [facility] with [id number] 23:33:00 Test Item Value Reference Range Interpretation [...] code = ALYMPH) 3.4 K/cumm 0.5-4.6 N Karnes Abs (test code = AMONO) 0.7 K/cumm 0.0-1.2 N Eos Abs (test code = AEOS) 0.10 K/cumm 0.00-0.74 N Baso Abs (test code = ABASO) 0.1 K/cumm 0.00-0.21 N Lipid [id number] 23:22:00 Test Item Value Reference Range Interpretation Comments Cholesterol (test 136 mg/dL 0-200 N code = CHOL) Triglycerides (test 100 mg/dL 9-200 N code = TRIG) HDL (test code = 53 mg/dL 50-60 N HDL) Chol/HDL (test code 2.6 Ratio 0.0-4.4 N = CHOLPHDL) LDL, Calculated 63 mg/dL 0-130 N (NOTE)RISK O F HEART (test code = LDLC) DISEASEPu blished by [place] Heart AssociationAnal yte Optimal Boderli ne Increased RiskC HOL <200 200-239 >240TRI G <150 150-199 >200HDL Male: >60 <40HDL Fema le: >60 <50LDL <100 130 -159 >160LDL NEAR OP [facility] IS 100-129 VLDL (test code = 20 mg/dL 5-40 N VLDL) LDL/HDL (test code = 1 LDLPHDL) Comprehensive Metabolic [id number] 23:22:00 Test Item Value Reference Range Interpretation [...] validated by th e MDRD study and [place] morris be interpretedwith caution.eGFR Re sult Interpretation: eGFR > or = 60 is in t he Normal RangeeGF R < 60 may mean kidney diseaseeGFR < 1 5 may mean kidney failureRange s recommended by the National Kidney Foundation,http ://nkd ep.nih.gov
--- NOTE | 2022-07-12 14:04 | RAD REPORT ---
EXAM DESCRIPTION: CT - Ct Stroke Brain Wo Cont - 07/12/2022 1:53 pm CLINICAL HISTORY: Neuro deficit, acute, stroke suspected COMPARISON: Head Brain Wo Cont dated 04/17/2020; Head Brain Wo Cont dated 03/29/2019 TECHNIQUE: All CT scans are performed using dose optimization technique as appropriate and may inclu de automated exposure control or mA/KV adjustment according to patient size. FINDINGS: No intracranial hemorrhage, hydrocephalus or extra-axial fluid collection.Area hypoattenua tion in the right parietal deep white matter is unchanged. This may represent some eccentric white ma tter disease. The paranasal sinuses and mastoids are clear. The calvarium is intact. IMPRESSION: No acute intracranial abnormality. Relayed to Dr. Wilcox by Dr. Gonzalez at 1400 on 07/12/22
--- NOTE | 2022-07-12 14:06 | RAD REPORT ---
EXAM DESCRIPTION: CT - Head angio - 07/12/2022 1:54 pm CLINICAL HISTORY: Neuro deficit, acute, stroke suspected COMPARISON: Ct Stroke Brain Wo Cont dated 07/12/2022; Head Brain Wo Cont dated 04/17/2020 TECHNIQUE: CT angiography of the head was performed with MIPs. All CT scans are performed using dose optimization technique as appropriate and may include automated exposure control or mA/KV adjustment according to patient size. FINDINGS: Anterior circulation: No aneurysm or large vessel occlusion. No hemodynamically significant stenosis. No arteriovenous malf ormation identified. Hypoplastic right A1 segment. Posterior circulation: No aneurysm or large vessel occlusion. No hemodynamically significant stenosis. No arteriovenous malf ormation identified. IMPRESSION: No significant flow abnormality is detected.
--- NOTE | 2022-07-12 14:11 | RAD REPORT ---
EXAM DESCRIPTION: CT - Neck Angio - 07/12/2022 1:54 pm CLINICAL HISTORY: Neuro deficit, acute, stroke suspected COMPARISON: Head C Spine Mpr Wo Con dated 12/25/2016 TECHNIQUE: CT angiography of the neck vessels was performed with MIPs. All CT scans are performed using dose optimization technique as appropriate and may include automated exposure control or mA/KV adjustment according to patient size. FINDINGS: A left aortic arch is identified with normal three vessel configuration of the great vesse ls. Calcified plaque is present the left distal common carotid artery with less than 50% stenosis. The ri ght common carotid artery is widely patent. No significant stenosis is identified involving the cervical segments of both internal carotid arteri es. Normal flow is seen within both vertebral arteries. Tiny nonspecific thyroid nodules are present. IMPRESSION: No significant flow abnormality of the neck vessels is identified. Calcified plaque pres ent at both common carotid arteries, left greater than right, with less than 50% stenoses.
--- NOTE | 2022-07-12 14:13 | RAD REPORT ---
EXAM DESCRIPTION: RAD - Chest Single View - 07/12/2022 2:05 pm CLINICAL HISTORY: COUGH COMPARISON: Chest Single View dated 12/03/2021; Chest Single View dated 09/29/2020; Chest Single View dated 04/17/2020; Chest Single View dated 03/29/2019; Chest Abdomen Pelvis W Cont dated 02/23/2019 FINDINGS: Lines: None. Lungs: No evidence of edema or pneumonia. Emphysema. Pleural: No significant pleural effusions or pneumothorax. Cardiac: The heart size is within normal limits. Mediastinum: Within normal limits. Bones: No acute fractures. Other: None IMPRESSION: No acute cardiopulmonary disease.
[2022-07-12] MEDS ORDERED: FOLIC ACID 5 MG/ML VIAL ONE (14:52)
[2022-07-12] MEDS ORDERED: NA CHLORIDE 0.9% 1,000 ML ONE (14:53)
[2022-07-12 15:31] LABS: Urine Blood 2+ (Negative); Urine Glucose Negative (Negative); Urine Protein 2+ (Negative); Urine pH 6.5 (5.0-7.0)
[2022-07-12 15:33] LABS: Protime INR 1.01
[2022-07-12 15:35] LABS: Hematocrit 40.2 % (36.0-45.0); Lymphocytes % 25.6 % (15.3-44.8); MCV 91.6 fL (80-100); MPV 10.7 fL (7.6-11.3); RBC Red Blood Cell Count 4.39 M/uL (3.86-4.86)
[2022-07-12 15:45] LABS: SARS-CoV-2 Antigen Rapid Res Negative (Negative)
[2022-07-12 15:55] LABS: Albumin 3.4 g/dL (3.4-5.0); Bilirubin Direct 0.2 mg/dL (0-0.2); Bilirubin Total 0.5 mg/dL (0.2-1.0); Magnesium 2.2 mg/dL (1.6-2.4); Protein, Total 6.8 g/dL (6.4-8.2); Troponin High Sensitivity 11.1 pg/mL (<58.9)
[2022-07-12] MEDS ORDERED: FAMOTIDINE 20 MG/2 ML VIAL IV ONE (17:54)
[2022-07-12] MEDS ORDERED: ASPIRIN 81 MG CHEWABLE TABLET ONE (17:54)
[2022-07-12] MEDS ORDERED: CLOPIDOGREL 75 MG TABLET ONE (18:05)
--- NOTE | 2022-07-12 18:13 | ER ---
Nurse's Notes [facility] Name: Germania Bañuelos Age: 72 yrs Sex: Female : 1950 Arrival Date: 07/12/2022 Time: 11:46 Bed Treatment Private MD: Diagnosis: Weakness;Essential (primary) hypertension Presentation: 07/12 12:00 Chief complaint: Patient states: Numbness in right hand 14 days ago - went to see ld1 Doctor. 7 days ago KAREN hands and left leg began to feel numb. Now pt keeps falling down because left leg is dragging, unable to bear weight. Negative facial droop, slurred speech, negative arm drift. Coronavirus screen: At this time, the client does not indicate any symptoms associated with coronavirus-19. Ebola Screen: No symptoms or risks identified at this time. No acute neurological deficit is noted. Pre-hospital glucose is not applicable to this patient. Initial Sepsis Screen: Does the patient meet any 2 criteria? No. Patient's initial sepsis screen is negative. Does the patient have a suspected source of infection? No. Patient's initial sepsis screen is negative. Risk Assessment: Do you want to hurt yourself or someone else? Patient reports no desire to harm self or others. Onset of symptoms was July 12, 2022. 12:00 Method Of Arrival: EMS: [facility] ld1 12:00 Acuity: MIGUEL 3 ld1 Triage Assessment: 12:02 The onset of the patients symptoms was. General: Appears in no apparent distress. ld1 comfortable, Behavior is calm, cooperative, appropriate for age. Pain: Denies pain. EENT: No signs and/or symptoms were reported regarding the EENT system. Neuro: Level of Consciousness is awake, alert, obeys commands, Oriented to person, place, time, situation, Reports numbness in right hand, left hand and left leg. Cardiovascular: Capillary refill < 3 seconds Patient's skin is warm and dry. Respiratory: Airway is patent Respiratory effort is even, unlabored. GI: Abdomen is flat, non-distended. : No signs and/or symptoms were reported regarding the genitourinary system. Derm: No signs and/or symptoms reported regarding the dermatologic system. Musculoskeletal: No signs and/or symptoms reported regarding the musculoskeletal system. 15:57 The onset of the patients symptoms was July 05, 2022 at 12:00. em6 Stroke Activation: Symptom onset > 6 hours Physician: Stroke Attending; Name: ; Notified At: ; Arrived At: Physician: Chief Stroke Resident; Name: ; Notified At: ; Arrived At: Physician: Stroke Resident; Name: ; Notified At: ; Arrived At: Physician: ED Attending; Name: ; Notified At: ; Arrived At: Physician: ED Resident; Name: ; Notified At: ; Arrived At: Historical: - Allergies: 12:02 Darvon; ld1 12:02 Demerol; ld1 12:02 Tamiflu; ld1 - PMHx: 12:02 COPD; Hyperlipidemia; Osteoporosis; Hypertension; shoulder pain; ld1 - Immunization history:: Adult Immunizations up to date, Client reports receiving the 2nd dose of the Covid vaccine. - Social history:: Smoking status: Patient denies any tobacco usage or history of. Patient/guardian denies using alcohol. - Family history:: not pertinent. Screenin:[facility] ED Fall Risk Assessment (Adult) History of falling in the last 3 months, em6 including since admission No falls in past 3 months (0 pts) Confusion or Disorientation No (0 pts) Intoxicated or Sedated No (0 pts) Impaired Gait Yes (1 pt) Mobility Assist Device Used Yes (1 pt) Altered Elimination No (0 pt) Score/Fall Risk Level 0 - 2 = Low Risk Oriented to surroundings, Maintained a safe environment, Educated pt \T\ family on fall prevention, incl call for assistance when getting out of bed, Assessed \T\ reinforced patient's understanding of fall precautions, Provided non-skid footwear, Hourly rounding (assess needs \T\ fall precautionary measures) done, Used ambulatory aids as needed (educated on \T\ assisted with), Used gait belt as appropriate. Abuse screen: Denies threats or abuse. Nutritional screening: No deficits noted. Tuberculosis screening: No symptoms or risk factors identified. Assessment: 14:40 VAN Scoring: Arm Drift: Patients demonstrates NO arm weakness. Patient is VAN Negative. em6 Visual Disturbance: No visual disturbance noted. Aphasia: No aphasia noted. Neglect: No neglect noted. The patient has not been NPO before screening. The patient is alert, and able to follow commands. The patient does not exhibit slurred or garbled speech. The patient is not exhibiting difficulty speaking. The patient does not exhibit difficulty understanding words. The patient is able to swallow own secretions with no drooling or need for suction. Patient tolerated one teaspoon of water. No drooling, immediate coughing, gurgling, or clearing of the throat was noted. The patient tolerated 90mL of water. No drooling, immediate coughing, gurgling, or clearing of the throat was noted. The patient passed the bedside swallow screening. Oral medications may be given as ordered. Contact Physician for further diet orders. Provider notified of bedside swallow screening results: Sridhar Wilcox MD. General: Appears in no apparent distress. Behavior is cooperative. Pain: Denies pain. Neuro: Level of Consciousness is awake, alert, obeys commands, Oriented to person, place, time, situation. Cardiovascular: Heart tones present Capillary refill < 3 seconds Patient's skin is warm and dry. Rhythm is sinus bradycardia. Respiratory: Airway is patent Respiratory effort is even, unlabored, Breath sounds are clear bilaterally. GI: Abdomen is non-distended, Bowel sounds present X 4 quads. Abd is soft and non tender X 4 quads. : No signs and/or symptoms were reported regarding the genitourinary system. EENT: No signs and/or symptoms were reported regarding the EENT system. Derm: No signs and/or symptoms reported regarding the dermatologic system. Musculoskeletal: Circulation, motion, and sensation intact. Range of motion: intact in all extremities, Parent/caregiver report the patient having patient reports weakness on the left leg needs assistance to walk. 14:40 TNKase (Tenecteplase) Screening: Contraindications: Other: signs and symptoms exceed em6 time limit. 15:40 Reassessment: Patient appears in no apparent distress at this time. No changes from em6 previously documented assessment. Patient and/or family updated on plan of care and expected duration. Pain level reassessed. Patient is alert, oriented x 3, equal unlabored respirations, skin warm/dry/pink. 16:40 Reassessment: Patient appears in no apparent distress at this time. No changes from em6 previously documented assessment. Patient and/or family updated on plan of care and expected duration. Pain level reassessed. Patient is alert, oriented x 3, equal unlabored respirations, skin warm/dry/pink. 17:40 Reassessment: Patient appears in no apparent distress at this time. No changes from em6 previously documented assessment. Patient and/or family updated on plan of care and expected duration. Pain level reassessed. Patient is alert, oriented x 3, equal unlabored respirations, skin warm/dry/pink. Vital Signs: 12:00 BP 179 / 89; Pulse 86; Resp 18; Temp 98.1(O); Pulse Ox 100% on R/A; Weight 44.45 kg; ld1 Height 5 ft. 0 in. (152.40 cm); Pain 0/10; 15:51 BP 175 / 69; Pulse 63; Resp 18; Pulse Ox 100% on R/A; em6 17:00 BP 164 / 72; Pulse 66; Resp 18; Pulse Ox 100% on R/A; em6 18:00 BP 158 / 68; Pulse 64; Resp 18; Pulse Ox 100% on R/A; em6 12:00 Body Mass Index 19.14 (44.45 kg, 152.40 cm) ld1 [place] Coma Score: 18:17 Eye Response: spontaneous(4). Verbal Response: oriented(5). Motor Response: obeys margie commands(6). Total: 15. NIH Stroke Scale Scores: 14:40 NIHSS Score: 0 em6 18:17 NIHSS Score: 0 [facility] ED Course: 11:46 Patient arrived in ED. rg4 12:02 Triage completed. ld1 12:02 Arm band placed on right wrist. ld1 12:36 Bruno Shaver, DEBRA is Primary Nurse. jl7 12:36 Patient placed in an exam room, on a stretcher. jl7 12:39 Sridhar Wilcox MD is Attending Physician. margie 13:55 CT Stroke Brain w/o Contrast In Process Unspecified. EDMS 13:56 CT Head Angio In Process Unspecified. EDMS 13:56 CT Neck Angio In Process Unspecified. EDMS 14:07 XRAY Chest (1 view) In Process Unspecified. EDMS 14:37 Florence Peguero, RN is Primary Nurse. em6 14:40 Bed in low position. Call light in reach. Side rails up X 1. child monitor on. Pulse em6 ox on. NIBP on. Warm blanket given. 15:00 Inserted saline lock: 22 gauge in left antecubital area, using aseptic technique. Blood em6 collected. 18:12 Norwood, Augie, MD is Referral Physician. margie 18:31 No provider procedures requiring assistance completed. IV discontinued, intact, em6 bleeding controlled, No redness/swelling at site. Pressure dressing applied. Administered Medications: 15:00 Drug: foLIC Acid 1 mg Route: IVPB; Site: left antecubital; em6 18:30 Follow up: Response: No adverse reaction; IV Status: Completed infusion; IV Intake: [id number] 15:16 Drug: NS 0.9% 1000 ml Route: IV; Rate: 1 bolus; Site: left antecubital; em6 16:57 Follow up: Response: No adverse reaction; IV Status: Completed infusion; IV Intake: em6 1000ml 18:01 Drug: Aspirin Chewable Tablet 324 mg Route: PO; ld1 18:30 Follow up: Response: No adverse reaction em6 18:01 Not Given (Duplicate Order): Pepcid (famotidine) 20 mg IVP once; dilute with 10 mL 0.9% margie NaCl; give over 2 minutes 18:06 Drug: PlaVIX (clopidogrel) 75 mg Route: PO; em6 18:30 Follow up: Response: No adverse reaction em6 Medication: 18:31 VIS not applicable for this client. em6 Point of Care Testing: Blood Glucose: 17:29 Blood Glucose: 89 mg/dL; em6 Ranges: Intake: 16:57 IV: 1000ml; Total: 1000ml. em6 18:30 IV: 10ml; Total: 1010ml. em6 Outcome: 18:13 Discharge ordered by . margie 18:31 Discharged to home via wheelchair. em6 18:31 Condition: stable 18:31 Discharge instructions given to patient, Instructed on discharge instructions, follow up and referral plans. medication usage, Demonstrated understanding of instructions, follow-up care, medications, Prescriptions given X 1. 18:32 Patient left the ED. em6 NIH Stroke Scale - NIH Stroke Score Date: 07/12/2022 Time: 14:40 Total Score = 0 1a. Level of Consciousness (LOC) - 0(Alert) 1b. Level of Consciousness (LOC) (Month \T\ Age) - 0(Both) 1c. LOC Commands (Open \T\ Closes Eyes/Private Household Worker) - 0(Both) 2. Best Gaze (Lateral Gaze Paresis) - 0(Normal) 3. Visual Field Loss - 0(No visual loss) 4. Facial Palsy - 0(Normal) 5a. Left Arm: Motor (10-second hold) - 0(No drift) 5b. Right Arm: Motor (10-second hold) - 0(No drift) 6a. Left Leg: Motor (5-second hold - always test supine) - 0(No drift) 6b. Right Leg: Motor (5-second hold - always test supine) - 0(No drift) 7. Limb Ataxia (finger/nose \T\ heel/jason - test with eyes open) - 0(Absent) 8. Sensory Loss (pinprick arms/legs/face) - 0(Normal) 9. Best Language: Aphasia (description/naming/reading) - 0(No aphasia) 10. Dysarthria (speech clarity - read or repeat words) - 0(Normal) 11. Extinction and Inattention (visual/tactile/auditory/spatial/personal) - 0(No abnormality) Initials: em6 NIH Stroke Scale - NIH Stroke Score Date: 07/12/2022 Time: 18:17 Total Score = 0 1a. Level of Consciousness (LOC) - 0(Alert) 1b. Level of Consciousness (LOC) (Month \T\ Age) - 0(Both) 1c. LOC Commands (Open \T\ Closes Eyes/Private Household Worker) - 0(Both) 2. Best Gaze (Lateral Gaze Paresis) - 0(Normal) 3. Visual Field Loss - 0(No visual loss) 4. Facial Palsy - 0(Normal) 5a. Left Arm: Motor (10-second hold) - 0(No drift) 5b. Right Arm: Motor (10-second hold) - 0(No drift) 6a. Left Leg: Motor (5-second hold - always test supine) - 0(No drift) 6b. Right Leg: Motor (5-second hold - always test supine) - 0(No drift) 7. Limb Ataxia (finger/nose \T\ heel/jason - test with eyes open) - 0(Absent) 8. Sensory Loss (pinprick arms/legs/face) - 0(Normal) 9. Best Language: Aphasia (description/naming/reading) - 0(No aphasia) 10. Dysarthria (speech clarity - read or repeat words) - 0(Normal) 11. Extinction and Inattention (visual/tactile/auditory/spatial/personal) - 0(No abnormality) Initials: margie Signatures: Dispatcher [employer] EDSridhar Bowers MD MD cha Garcia, Rubi rg4 Bruno Shaver, RN RN jl7 Fina Hastings, RN RN ld1 Florence Peguero RN RN em6 Corrections: (The following items were deleted from the chart) 15:55 14:40 The patient has not been NPO before screening. The patient is alert, and em6 able to follow commands. The patient does not exhibit slurred or garbled speech. The patient is not exhibiting difficulty speaking. The patient does not exhibit difficulty understanding words. The patient is able to swallow own secretions with no drooling or need for suction. Patient tolerated one teaspoon of water. No drooling, immediate coughing, gurgling, or clearing of the throat was noted. The patient tolerated 90mL of water. No drooling, immediate coughing, gurgling, or clearing of the throat was noted. The patient passed the bedside swallow screening. Oral medications may be given as ordered. Contact Physician for further diet orders. em6 15:57 14:40 General: Appears in no apparent distress. Behavior is cooperative, em6 em6 15:57 14:40 Musculoskeletal: Circulation, motion, and sensation intact. Range of em6 motion: intact in all extremities, em6 15:57 14:40 VAN Scoring: Arm Drift: Patients demonstrates NO arm weakness. Patient is em6 VAN Negative. Visual Disturbance: No visual disturbance noted. Aphasia: No aphasia noted. Neglect: No neglect noted. em6 15:57 14:40 The patient has not been NPO before screening. The patient is alert, and em6 able to follow commands. The patient does not exhibit slurred or garbled speech. The patient is not exhibiting difficulty speaking. The patient does not exhibit difficulty understanding words. The patient is able to swallow own secretions with no drooling or need for suction. Patient tolerated one teaspoon of water. No drooling, immediate coughing, gurgling, or clearing of the throat was noted. The patient tolerated 90mL of water. No drooling, immediate coughing, gurgling, or clearing of the throat was noted. The patient passed the bedside swallow screening. Oral medications may be given as ordered. Contact Physician for further diet orders. Provider notified of bedside swallow screening results: Sridhar Wilcox MD em6 18:31 15:57 Response: No adverse reaction em6 em6
--- NOTE | 2022-07-12 18:14 | EDPHYS ---
Physician Documentation [facility] Name: Germania Bañuelos Age: 72 yrs Sex: Female : 1950 Arrival Date: 07/12/2022 Time: 11:46 Bed Treatment Private MD: ED Physician Sridhar Wilcox HPI: 07/12 18:01 This 72 yrs old Female presents to ER via EMS with complaints of S/S of margie Possible Stroke. 18:01 The patient's problem is reported as weakness, in the right upper extremity, in the margie right lower extremity, in the left upper extremity, in the left lower extremity, that is generalized. Onset: The symptoms/episode began/occurred 3 day(s) ago. Duration: The episode is continuous. Context: occurred at an unknown location, occurred while the patient was UNKNOWN, NO TRAUMA. The symptoms are alleviated by nothing. The symptoms are aggravated by nothing. Associated signs and symptoms: Pertinent positives: weakness. Severity of symptoms: At their worst the symptoms were mild in the emergency department the symptoms are unchanged. Patient's baseline: Neuro: alert and fully oriented. The patient has not experienced similar symptoms in the past. Historical: - Allergies: 12:02 Darvon; ld1 12:02 Demerol; ld1 12:02 Tamiflu; ld1 - PMHx: 12:02 COPD; Hyperlipidemia; Osteoporosis; Hypertension; shoulder pain; ld1 - Immunization history:: Adult Immunizations up to date, Client reports receiving the 2nd dose of the Covid vaccine. - Social history:: Smoking status: Patient denies any tobacco usage or history of. Patient/guardian denies using alcohol. - Family history:: not pertinent. ROS: 18:01 Constitutional: Negative for fever, chills, and weight loss, Eyes: Negative for injury, margie pain, redness, and discharge, ENT: Negative for injury, pain, and discharge, Neck: Negative for injury, pain, and swelling, Cardiovascular: Negative for chest pain, palpitations, and edema, Respiratory: Negative for shortness of breath, cough, wheezing, and pleuritic chest pain, Abdomen/GI: Negative for abdominal pain, nausea, vomiting, diarrhea, and constipation, Back: Negative for injury and pain, : Negative for injury, bleeding, discharge, and swelling, MS/Extremity: Negative for injury and deformity, Skin: Negative for injury, rash, and discoloration, Psych: Negative for depression, anxiety, suicide ideation, homicidal ideation, and hallucinations, Allergy/Immunology: Negative for hives, rash, and allergies, Endocrine: Negative for neck swelling, polydipsia, polyuria, polyphagia, and marked weight changes, Hematologic/Lymphatic: Negative for swollen nodes, abnormal bleeding, and unusual bruising. 18:01 Neuro: Positive for weakness, of the right arm, left arm, right leg and left leg. Exam: 18:01 Radiologist reports: NAD, NO BLOOD, CTA NEG WITH LESS THAN 50% CAROTID margie 18:01 Constitutional: This is a well developed, well nourished patient who is awake, alert, and in no acute distress. Head/Face: Normocephalic, atraumatic. Eyes: Pupils equal round and reactive to light, extra-ocular motions intact. Lids and lashes normal. Conjunctiva and sclera are non-icteric and not injected. Cornea within normal limits. Periorbital areas with no swelling, redness, or edema. ENT: Nares patent. No nasal discharge, no septal abnormalities noted. Tympanic membranes are normal and external auditory canals are clear. Oropharynx with no redness, swelling, or masses, exudates, or evidence of obstruction, uvula midline. Mucous membranes moist. Neck: Trachea midline, no thyromegaly or masses palpated, and no cervical lymphadenopathy. Supple, full range of motion without nuchal rigidity, or vertebral point tenderness. No Meningismus. Chest/axilla: Normal chest wall appearance and motion. Nontender with no deformity. No lesions are appreciated. Cardiovascular: Regular rate and rhythm with a normal S1 and S2. No gallops, murmurs, or rubs. Normal PMI, no JVD. No pulse deficits. Respiratory: Lungs have equal breath sounds bilaterally, clear to auscultation and percussion. No rales, rhonchi or wheezes noted. No increased work of breathing, no retractions or nasal flaring. Abdomen/GI: Soft, non-tender, with normal bowel sounds. No distension or tympany. No guarding or rebound. No evidence of tenderness throughout. Back: No spinal tenderness. No costovertebral tenderness. Full range of motion. Female : Normal external genitalia. Skin: Warm, dry with normal turgor. Normal color with no rashes, no lesions, and no evidence of cellulitis. MS/ Extremity: Pulses equal, no cyanosis. Neurovascular intact. Full, normal range of motion. Neuro: Awake and alert, GCS 15, oriented to person, place, time, and situation. Cranial nerves II-XII grossly intact. Motor strength 5/5 in all extremities. Sensory grossly intact. Cerebellar exam normal. Normal gait. Psych: Awake, alert, with orientation to person, place and time. Behavior, mood, and affect are within normal limits. 18:01 Cardiovascular: Rate: normal, Rhythm: regular, Pulses: Pulses are 4+ in bilateral radial, brachial, femoral, popliteal, posterior tibial and and dorsalis pedis arteries.. Heart sounds: normal, normal S1and S2, no S3 or S4, no murmur, no rub, no gallop, Edema: is not appreciated, JVD: is not appreciated. 18:01 ECG was reviewed by the Attending Physician. Vital Signs: 12:00 BP 179 / 89; Pulse 86; Resp 18; Temp 98.1(O); Pulse Ox 100% on R/A; Weight 44.45 kg; ld1 Height 5 ft. 0 in. (152.40 cm); Pain 0/10; 15:51 BP 175 / 69; Pulse 63; Resp 18; Pulse Ox 100% on R/A; em6 17:00 BP 164 / 72; Pulse 66; Resp 18; Pulse Ox 100% on R/A; em6 18:00 BP 158 / 68; Pulse 64; Resp 18; Pulse Ox 100% on R/A; em6 12:00 Body Mass Index 19.14 (44.45 kg, 152.40 cm) ld1 NIH Stroke Scale Scores: 14:40 NIHSS Score: 0 em6 18:17 NIHSS Score: 0 margie Lily Coma Score: 18:17 Eye Response: spontaneous(4). Verbal Response: oriented(5). Motor Response: obeys margie commands(6). Total: 15. MDM: 12:40 Patient medically screened. margie 18:10 Differential diagnosis: CVA, TIA, Dementia, metabolic disorder, drug effects. Data margie reviewed: vital signs, nurses notes, lab test result(s), EKG, radiologic studies, CT scan, plain films. Data interpreted: ekg monitor: rate is 63 beats/min, rhythm is regular, Pulse oximetry: on room air is 100 %. Test interpretation: by ED physician or midlevel provider: ECG, plain radiologic studies. Counseling: I had a detailed discussion with the patient and/or guardian regarding: the historical points, exam findings, and any diagnostic results supporting the discharge/admit diagnosis, lab results, radiology results, the need for outpatient follow up, for definitive care, a family practitioner, a neurologist. 07/12 12:43 Order name: Basic Metabolic Panel; Complete Time: 17:29 [facility] 07/12 12:43 Order name: CBC with Diff; Complete Time: 17:29 [facility] 07/12 12:43 Order name: LFT's; Complete Time: 17:29 [facility] 07/12 12:43 Order name: Magnesium; Complete Time: 17:29 [facility] 07/12 12:43 Order name: NT PRO-BNP; Complete Time: 17:29 [facility] 07/12 12:43 Order name: PT-INR; Complete Time: 17:29 [facility] 07/12 12:43 Order name: Troponin HS; Complete Time: 17:29 [facility] 07/12 12:43 Order name: XRAY Chest (1 view); Complete Time: 14:25 [facility] 07/12 12:43 Order name: Lipase; Complete Time: 17:29 [facility] 07/12 12:43 Order name: SARS RAPID; Complete Time: 17:29 [facility] 07/12 12:43 Order name: CT Stroke Brain w/o Contrast; Complete Time: 14:25 [facility] 07/12 12:43 Order name: CT Head Angio; Complete Time: 14:25 [facility] 07/12 14:47 Order name: CREATININE WHOLE BLOOD; Complete Time: 17:29 [facility] 07/12 15:32 Order name: Urine Dipstick-Ancillary; Complete Time: 17:29 [facility] 07/12 12:43 Order name: EKG; Complete Time: 12:44 [facility] 07/12 12:43 Order name: Cardiac monitoring; Complete Time: 15:16 [facility] 07/12 12:43 Order name: EKG - Nurse/Tech; Complete Time: 15:16 [facility] 07/12 12:43 Order name: IV Saline Lock; Complete Time: 15:16 [facility] 07/12 12:43 Order name: Labs collected and sent; Complete Time: 15:16 [facility] 07/12 12:43 Order name: O2 Per Protocol; Complete Time: 12:53 [facility] 07/12 12:43 Order name: O2 Sat Monitoring; Complete Time: 12:53 [facility] 07/12 12:43 Order name: CT Neck Angio; Complete Time: 14:25 [facility] 07/12 12:43 Order name: Urine Dipstick-Ancillary (obtain specimen); Complete Time: 15:28 [facility] EC:01 Rate is 63 beats/min. QRS [place] is Normal. OK interval is normal. QRS interval is margie normal. QT interval is normal. No ST changes noted. Clinical impression: NSR w/ Non-specific ST/T Changes and No evidence of ischemia. Administered Medications: 15:00 Drug: foLIC Acid 1 mg Route: IVPB; Site: left antecubital; em6 18:30 Follow up: Response: No adverse reaction; IV Status: Completed infusion; IV Intake: 22atcp2 15:16 Drug: NS 0.9% 1000 ml Route: IV; Rate: 1 bolus; Site: left antecubital; em6 16:57 Follow up: Response: No adverse reaction; IV Status: Completed infusion; IV Intake: em6 1000ml 18:01 Drug: Aspirin Chewable Tablet 324 mg Route: PO; ld1 18:30 Follow up: Response: No adverse reaction em6 18:01 Not Given (Duplicate Order): Pepcid (famotidine) 20 mg IVP once; dilute with 10 mL 0.9% [facility] NaCl; give over 2 minutes 18:06 Drug: PlaVIX (clopidogrel) 75 mg Route: PO; em6 18:30 Follow up: Response: No adverse reaction em6 Point of Care Testing: Blood Glucose: 17:29 Blood Glucose: 89 mg/dL; em6 Ranges: Critical Glucose Levels:Adult <50 mg/dl or >400 mg/dl <40 mg/dl or >180 mg/dl Disposition Summary: 07/12/22 18:13 Discharge Ordered Location: Home margie Problem: new margie Symptoms: have improved margie Condition: Stable margie Diagnosis - Weakness margie - Essential (primary) hypertension margie Followup: margie - With: Private Physician - When: 2 - 3 days - Reason: Recheck today's complaints, Continuance of care, Re-evaluation by your physician Followup: margie - With: Augie Coppola MD - When: 2 - 3 days - Reason: Recheck today's complaints, Re-evaluation by your physician Discharge Instructions: - Discharge Summary Sheet margie - Hypertension, Adult margie - Weakness margie - Hypertension, Adult, Qtto-he-Oyes margie - How to Take Your Blood Pressure, Lvyv-[id number] margie - Weakness, Aptf-[id number]-[id number] margie - Aspirin and Your Heart margie - Managing Your Hypertension margie Forms: - Medication Reconciliation Form margie - Thank You Letter margie - Antibiotic Education margie - Prescription Opioid Use margie Prescriptions: - Plavix 75 mg Oral Tablet - take 1 tablet by ORAL route once daily; 20 tablet; Refills: 0, Product margie Selection Permitted NIH Stroke Scale - NIH Stroke Score Date: 07/12/2022 Time: 14:40 Total Score = 0 1a. Level of Consciousness (LOC) - 0(Alert) 1b. Level of Consciousness (LOC) (Month \T\ Age) - 0(Both) 1c. LOC Commands (Open \T\ Closes Eyes/Bpm Analyst) - 0(Both) 2. Best Gaze (Lateral Gaze Paresis) - 0(Normal) 3. Visual Field Loss - 0(No visual loss) 4. Facial Palsy - 0(Normal) 5a. Left Arm: Motor (10-second hold) - 0(No drift) 5b. Right Arm: Motor (10-second hold) - 0(No drift) 6a. Left Leg: Motor (5-second hold - always test supine) - 0(No drift) 6b. Right Leg: Motor (5-second hold - always test supine) - 0(No drift) 7. Limb Ataxia (finger/nose \T\ heel/jason - test with eyes open) - 0(Absent) 8. Sensory Loss (pinprick arms/legs/face) - 0(Normal) 9. Best Language: Aphasia (description/naming/reading) - 0(No aphasia) 10. Dysarthria (speech clarity - read or repeat words) - 0(Normal) 11. Extinction and Inattention (visual/tactile/auditory/spatial/personal) - 0(No abnormality) Initials: em6 NIH Stroke Scale - NIH Stroke Score Date: 07/12/2022 Time: 18:17 Total Score = 0 1a. Level of Consciousness (LOC) - 0(Alert) 1b. Level of Consciousness (LOC) (Month \T\ Age) - 0(Both) 1c. LOC Commands (Open \T\ Closes Eyes/Bpm Analyst) - 0(Both) 2. Best Gaze (Lateral Gaze Paresis) - 0(Normal) 3. Visual Field Loss - 0(No visual loss) 4. Facial Palsy - 0(Normal) 5a. Left Arm: Motor (10-second hold) - 0(No drift) 5b. Right Arm: Motor (10-second hold) - 0(No drift) 6a. Left Leg: Motor (5-second hold - always test supine) - 0(No drift) 6b. Right Leg: Motor (5-second hold - always test supine) - 0(No drift) 7. Limb Ataxia (finger/nose \T\ heel/jason - test with eyes open) - 0(Absent) 8. Sensory Loss (pinprick arms/legs/face) - 0(Normal) 9. Best Language: Aphasia (description/naming/reading) - 0(No aphasia) 10. Dysarthria (speech clarity - read or repeat words) - 0(Normal) 11. Extinction and Inattention (visual/tactile/auditory/spatial/personal) - 0(No abnormality) Initials: margie Signatures: Dispatcher [employer] EDSridhar Bowers MD MD cha Mickail, Joel, PA PA jmm Leal, Jahala, RN RN jl7 Fina Hastings RN RN ld1 Florence Peguero, RN RN em6
[2022-07-12 18:47] VITALS: TEMP 98.1; O2SAT 100
[2022-07-12 19:04] VITALS: BP 158/68
--- NOTE | 2022-07-13 13:40 | EKG ---
Test Date: 2022-07-12 Test Time: 14:53:58 Dye Expert: ROSA MEASUREMENT RESULTS: Intervals: Rate: 63 IN: 174 QRSD: 92 QT: 446 QTc: 456 [place]: P: 74 IN: 174 QRS: -84 T: 65 INTERPRETIVE STATEMENTS: Normal sinus rhythm Possible Left atrial enlargement Incomplete right bundle branch block Left anterior fascicular block Abnormal ECG Compared to ECG 04/17/2020 10:46:32 Incomplete right bundle-branch block now present Left anterior fascicular block now present Left-axis deviation no longer present Myocardial infarct finding no longer present Electronically Signed On 07-13-22 13:38:13 [employer]CH[employer] by Nicolás Conti
--- NOTE | 2022-07-13 13:40 | EKG ---
Test Date: 2022-07-12 Test Time: 14:54:57 Professor Of Fine Art: ROSA MEASUREMENT RESULTS: Intervals: Rate: 62 IN: 174 QRSD: 92 QT: 448 QTc: 454 [place]: P: 81 IN: 174 QRS: -86 T: 65 INTERPRETIVE STATEMENTS: Normal sinus rhythm Possible Left atrial enlargement Pulmonary disease pattern Incomplete right bundle branch block Left anterior fascicular block Abnormal ECG Compared to ECG 07/12/2022 14:53:58 No significant changes Electronically Signed On 07-13-22 13:38:12 [employer]PER[employer] by Nicolás Conti
== END 2022-07-12 18:32 | disposition home or self-care (01) ==
LOC: ER 11:31
DX: R53.1 Weakness (principal); R05.9 Cough, unspecified; I10 Essential (primary) hypertension; Z20.822 Contact with and (suspected) exposure to COVID-19; Z88.5 Allergy status to narcotic agent; Z88.8 Allergy status to other drugs, medicaments and biological substances
CPT/HCPCS: 93005 ×2; 85025; 80048; 36415; 83735; 85610; 82565; 80076; 81003; 84484; 83690; 83880; 70496; 70498; 70450; 71045; 87811; Q9967; J7030; 96365; 96366; 99285

== ENCOUNTER 2023-02-10 19:36 | Emergency (ER) | payer OTHER ==
--- OUTSIDE RECORDS SUMMARY | 2023-02-10 19:49 | XMS REPORT | Continuity of Care Document ---
:1950 Author Organization [facility] Address [address] [facility] [address] [place] [address] Care Team Providers Name Role Phone JORGE ESPINOZA Primary Care Physician Unavailable Denny Abdalla Attending Clinician Unavailable LISA BATISTA Attending Clinician Unavailable LISA BATISTA Attending Clinician Unavailable Ariane Thomas Attending Clinician Unavailable GREYSON MARTE Attending Clinician Unavailable PATI MARTIN Attending Clinician Unavailable PATI MARTIN Attending Clinician Unavailable Doctor Unassigned, [place] Attending Clinician Unavailable SHERIDAN BRADLEY Attending Clinician Unavailable Sheridan Fleming Attending Clinician Elizabet Ruiz LCSW Attending Clinician Unavailable Marlyn Cardenas Attending Clinician Dwight Charles MD Attending Clinician Luis E Abdalla Attending Clinician Chad Fitzgerald MD Attending Clinician CANDICE Attending Clinician Unavailable Greyson Marte MD Attending Clinician Gaurav CARTER Sera Attending Clinician Prabhakar Sandoval MD Attending Clinician Only, [facility] Test Attending Clinician Unavailable Nurse, [facility] General Surgery Attending Clinician Unavailable Pob, [facility] Lab Main Attending Clinician Unavailable JORGE ESPINOZA Attending Clinician Unavailable Marcia Attending Clinician Unavailable LISA BATISTA Admitting Clinician Unavailable GREYSON MARTE Admitting Clinician Unavailable DWIGHT CHARLES Admitting Clinician Unavailable Dwight Charles MD Admitting Clinician CANDICE Admitting Clinician Unavailable Greyson Marte MD Admitting Clinician JORGE ESPINOZA Admitting Clinician Unavailable Marcia Admitting Clinician Unavailable Payers Payer Name Policy Type Policy Number Effective Date Expiration Date S aldo [employer] [id number] 2022 MEDICARE 00:00:00 ADVANTAGE HUMA[employer] CHOICE [id number] 2019 00:00:00 AARP [facility] [id number] 2021 2022 Common ADVANTAGE [employer]LL[employer] 00:00:00 00:00:00 [facility] Seanodes [facility] 53 [id number] 2020 Commo n MEDICARE 00:00:00 [email or web address] [facility] [id number] - CARE IMPROVEMENT PLUS - REGIONAL (MEDICARE REPLACEMENT PPO) MEDICARE B-[place]: [id number] 2011 [employer] 00:00:00 Problems Condition Condition Condition Status Onset Resolution Last Treating Co mments Source Name Details Category Date Date Treatment Clinician Date E44.0 E44.0 Disease Active Univers Moderate Moderate 1-18 ity of protein protein 00:00: [place] calorie calorie 00 Medical malnutriti malnutriti Br anch on on Neck pain Neck pain Disease Active Uni vers 1-10 ity of 00:00: [place] 00 Medical Branch No known No known Disease Unive rs active active ity of problems problems [facility] Carpal Carpal Problem Active 2022-08-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 Ronald n (disorder) (disorder) Active Problem 08/15/2022 [facility] [place] 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 23:08:19 l (disorder) (disorder) He rmann Active Problem 08/15/2022 [facility] [place] 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 23:08:19 l thy thy Juice (disorder) (disorder) Active Problem 08/15/2022 [facility] [place] Low back Low back Problem Commo n pain pain, Spirit unspecifie - [facility]I d [facility] [id number] Bilateral Problem Co mmon [id number] carpal Spirit tunnel - CHI syndrome [facility] [id number] PAD Problem Common (periphera Spirit l artery - CHI disease) [facility] [id number] Mixed Problem Common hyperlipid Spirit emia - [facility] [id number] Low back Problem Comm on pain Spirit - [facility] COPD - COPD Problem Common Chronic (chronic Spirit obstructiv obstructiv - [facility] e e pulmonary pulmonary [place] s disease disease) [facility] [id number] Lymphocyto Problem Com mon sis Spirit - [facility] [id number] Other Problem Common chronic Spirit pain - CHI [facility] [id number] Malignant Problem Comm on hypertensi Spirit ve urgency - CHI [facility] Hypertensi Hypertensi Problem C ommon on on Spirit - CHI [facility] [id number] 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 [facility] coronary Medical artery of [place] heart without angina pectoris [id number] 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 - CHI is without [facility] pathologic Medica l al Center fracture [id number] Tobacco Problem Commo n use Spirit disorder - [facility] Allergies, Adverse Reactions, Alerts Allergy Allergy Status Severity Reaction(s) Onset Inactive Treating Comm ents Source Name Type Date Date Clinician PRAVASTA DRUG Active NAUSEA ONLY Uni vers TIN INGREDI - ity of 00:00: [place] 00 [facility] Branch Pravasta Drug Active Nausea Only Uni vers tin Allergy 1-19 ity of 00:00: [place] 00 Medical Branch OSELTAMI DRUG Active Dizziness Unive rs VIR INGREDI 11-20 ity of PHOSPHAT 00:00: [place] E 00 Medical Branch Oseltami Propensi Active Dizziness Uni vers vir ty to 06 ity of Phosphat adverse 00:00: [place] e reaction Medical s Branch PROPOXYP DRUG Active Hallucinates Un shahram HENE HCL INGREDI 07 ity of 00:00: [place] [facility] MEPERIDI DRUG Active Hallucinates Un shahram NE HCL INGREDI 07 ity of 00:00: [place] [facility] Propoxyp Propensi Active Hallucinatio Univers hene Hcl ty to ns 3-07 ity of adverse 00:00: [place] reaction 00 Medical s Branch Meperidi Propensi Active Hallucinatio Univers ne Hcl ty to ns 307 ity of adverse 00:00: [place] reaction 00 Medical s Branch oseltami oseltami Active Unknown Commo n vir vir [facility] meperidi meperidi Active Unknown Commo n ne ne [facility] [id number] Drug Active Unknown Common allergy [facility] Social History Social Habit Start Date Stop Date Quantity Comments Source History of tobacco Passive smoker Un iversity of use [place] [facility] History SDOH Social Unive rsity of Connections Phone [facility] edical Branch History SDOH Social Unive rsity of Connections [facility] Med ical Together Branch History SDOH Social Unive rsity of Connections [facility] Medical Branch History SDOH Social Unive rsity of Connections [place] [facility] Membership Branch History SDOH Social Unive rsity of Connections [place] [facility] Meetings Branch History SDOH Food Univers ity of Scarcity [facility] Gender identity Universit y of [facility] Sexual orientation Univer sity of [facility] Sex Assigned At Common Sp luba - [facility] Exposure to 2022-09-13 2022-09-23 Not sure University of SARS-CoV-2 (event) 00:00:00 10:11:00 [facility] Tobacco use and 2022-07-28 2022-07-28 Former smokeless Uni versity of exposure 00:00:00 00:00:00 tobacco user [place] [facility] History SDNE 2022-07-28 2022-07-28 1 University o f Alcohol Frequency 00:00:00 00:00:00 [place] M edical Branch History SDOH 2022-07-28 2022-07-28 0 University o f Alcohol Std Drinks 00:00:00 00:00:00 [place] [facility] History SDOH 2022-07-28 2022-07-28 1 University o f Alcohol Binge 00:00:00 00:00:00 [place] Medic al Branch History SDOH Social 2022-07-28 2022-07-28 4 Unive rsity of Connections Living 00:00:00 00:00:00 [place] [facility] History SDOH 2022-07-28 2022-07-28 0 University o f Physical Activity 00:00:00 00:00:00 [facility] edical DPW Branch History SDNE 2022-07-28 2022-07-28 0 University o f Physical Activity 00:00:00 00:00:00 [facility] edical MPS Branch History SDOH 2022-07-28 2022-07-28 5 University o f Financial 00:00:00 00:00:00 [place] [facility] History SDOH Food 2022-07-28 2022-07-28 1 Univers ity of Worry 00:00:00 00:00:00 [place] [facility] History SDOH 2022-07-28 2022-07-28 2 University o f Transport Med 00:00:00 00:00:00 [place] [facility] al [facility] History SDNE 2022-07-28 2022-07-28 2 University o f Transport Non-Med 00:00:00 00:00:00 [facility] edical Branch History of Social 2019-12-05 2019-12-05 Univers ity of function 00:00:00 00:00:00 [facility] Smoking Status Start Date Stop Date Source Unknown if ever smoked Universit y of [facility] Smokes tobacco daily 2022-07-28 00:00:00 Univers ity of [place] [facility] [place] Medications Ordered Filled Start Stop Current Ordering Indication Dosage Frequency Signature Comments Components Source Medication Medication Date Date Medication? Clinician (SIG) Name Name polyethylen 2022- No [id number] 17g Take 1 Univers e glycol 08-14 Packet by ity o f 2686 17 00:00: 05:59 mouth in [place] gram powder 00 :00 the [facility] for 30 days. polyethylen 2022-0 3- No [id number] 17g Take 1 Univers e glycol 08-14 Packet by ity o f 3350 17 00:00: 05:59 mouth in [place] gram powder 00 :00 the [facility] for 30 days. polyethylen 3-0 3- No [id number] 17g Take 1 Univers e glycol 08-14 Packet by [employer] o [employer] 3350 17 00:00: 05:59 mouth in [place] gram powder 00 :00 the [facility] for 30 days. polyethylen 2022-0 3- No [id number] 17g Take 1 Univers e glycol 08-14 Packet by [employer] o f 3350 17 00:00: 05:59 mouth in [place] gram powder 00 :00 the [facility] for 30 days. polyethylen 2022-0 3- No [id number] 17g Take 1 Univers e glycol 08-14 Packet by [employer] 3350 17 00:00: 05:59 mouth in [place] gram powder 00 :00 the [facility] for 30 days. polyethylen 2022-0 3- No [id number] 17g Take 1 Univers e glycol 08-14 Packet by [employer] 3350 17 00:00: 05:59 mouth in [place] gram powder 00 :00 the [facility] for 30 days. polyethylen 2022-0 3- No [id number] 17g Take 1 Univers e glycol 08-14 Packet by [employer] 3350 17 00:00: 05:59 mouth in [place] gram powder 00 :00 the [facility] for 30 days. lisinopril 3-0 Yes 5mg Take 5 mg Un shahram (ZESTRIL) 5 - by mouth ity of mg tablet 17:55: daily. [address] atenolol 3-0 Yes 25mg Take 25 mg Uni vers (TENORMIN) - by mouth 2 ity of 25 mg 17:55: (two) [place] tablet 41 times Medical daily. [place] ISOSORBIDE 3-0 Yes 30mg Take 30 mg U nivers ORAL -27 by mouth ity of 17:55: daily. [place] [address] Medical Branch amLODIPine 2022-0 Yes 10mg Take 10 mg U nivers (NORVASC) 1-27 by mouth ity of 10 mg 17:55: daily. [place] tablet 41 Medical Branch POTASSIUM 2022-0 Yes 2{tbl} Take 2 Univ ers GLUCONATE 1-27 Tabs by ity of ORAL 17:55: mouth 2 [place] [address] (two) Medical times [place] daily. metoprolol 2022-0 Yes 25mg Take 25 mg U nivers tartrate 25 - by mouth 2 it y of mg tablet 17:55: (two) [place] 41 times Medical daily. Branch ergocalcife 0 Yes Take by Uni vers rol, 08-13 mouth. ity of vitamin D2, 17:55: [place] (VITAMIN D 41 Medical ORAL) Branch lisinopril 2022-0 Yes 5mg Take 5 mg Un shah[facility] (ZESTRIL) 5 - by mouth ity of mg tablet 17:55: daily. [address] Branch atenolol 2022-0 Yes 25mg Take 25 mg Uni vers (TENORMIN) 08-13 by mouth 2 ity of 25 mg 17:55: (two) [place] tablet 41 times Medical daily. Branch ISOSORBIDE 0 Yes 30mg Take 30 mg U nivers ORAL 08-13 by mouth ity of 17:55: daily. [address] Branch amLODIPine 0 Yes 10mg Take 10 mg U nivers (NORVASC) - by mouth ity of 10 mg 17:55: daily. [place] [facility] 41 Medical Branch POTASSIUM 2022-0 Yes 2{tbl} Take 2 Univ ers GLUCONATE 1-27 Tabs by ity of ORAL 17:55: mouth 2 [place] [address] (two) Medical times [place] daily. metoprolol 2022-0 Yes 25mg Take 25 mg U nivers tartrate 25 - by mouth 2 it y of mg tablet 17:55: (two) [place] 41 times Medical daily. Branch ergocalcife 2022-0 Yes Take by Uni vers rol, 08-13 mouth. ity of vitamin D2, 17:55: [place] (VITAMIN D 41 Medical ORAL) Branch lisinopril 2022-0 Yes 5mg Take 5 mg Un shah[facility] (ZESTRIL) 5 1-27 by mouth ity of mg tablet 17:55: daily. [address] Branch atenolol 2022-0 Yes 25mg Take 25 mg Uni vers (TENORMIN) 08-13 by mouth 2 ity of 25 mg 17:55: (two) [place] tablet 41 times Medical daily. Branch ISOSORBIDE 2022-0 Yes 30mg Take 30 mg U nivers ORAL 08-13 by mouth ity of 17:55: daily. [address] Branch amLODIPine 2022-0 Yes 10mg Take 10 mg U nivers (NORVASC) 08-13 by mouth ity of 10 mg 17:55: daily. [place] [facility] 41 Medical Branch POTASSIUM 2022-0 Yes 2{tbl} Take 2 Univ ers GLUCONATE - Tabs by ity of ORAL 17:55: mouth 2 [place] [address] (two) Medical times [place] daily. metoprolol 2022-0 Yes 25mg Take 25 mg U nivers tartrate 25 08-13 by mouth 2 it y of mg tablet 17:55: (two) [place] [address] times Medical daily. Branch ergocalcife 0 Yes Take by Uni vers rol, 08-13 mouth. ity of vitamin D2, 17:55: [place] (VITAMIN D 41 Medical ORAL) Branch lisinopril 0 Yes 5mg Take 5 mg Un shah[facility] (ZESTRIL) 5 08-13 by mouth ity of mg tablet 17:55: daily. [address] Branch atenolol 0 Yes 25mg Take 25 mg Uni vers (TENORMIN) 08-13 by mouth 2 ity of 25 mg 17:55: (two) [place] tablet 41 times Medical daily. Branch ISOSORBIDE 2022-0 Yes 30mg Take 30 mg U nivers ORAL 27 by mouth ity of 17:55: daily. [address] Branch amLODIPine 2022-0 Yes 10mg Take 10 mg U nivers (NORVASC) 08-13 by mouth ity of 10 mg 17:55: daily. [place] [facility] 41 Medical Branch POTASSIUM 2022-0 Yes 2{tbl} Take 2 Univ ers GLUCONATE -27 Tabs by ity of ORAL 17:55: mouth 2 [place] [address] (two) Medical times Branch daily. metoprolol 2022-0 Yes 25mg Take 25 mg U nivers tartrate 25 08-13 by mouth 2 it y of mg tablet 17:55: (two) [place] 41 times Medical daily. Branch ergocalcife 2022-0 Yes Take by Uni vers rol, 08-13 mouth. ity of vitamin D2, 17:55: [place] (VITAMIN D 41 Medical ORAL) Branch lisinopril 2022-0 Yes 5mg Take 5 mg Un shah[facility] (ZESTRIL) 5 08-13 by mouth ity of mg tablet 17:55: daily. [place] [address] Medical Branch atenolol 2022-0 Yes 25mg Take 25 mg Uni vers (TENORMIN) 08-13 by mouth 2 ity of 25 mg 17:55: (two) [place] tablet 41 times Medical daily. Branch ISOSORBIDE 2022-0 Yes 30mg Take 30 mg U nivers ORAL 08-13 by mouth ity of 17:55: daily. [place] [address] Medical Branch amLODIPine 2022-0 Yes 10mg Take 10 mg U nivers (NORVASC) 08-13 by mouth ity of 10 mg 17:55: daily. [place] [address] Medical Branch POTASSIUM 2022-0 Yes 2{tbl} Take 2 Univ ers GLUCONATE 08-13 Tabs by ity of ORAL 17:55: mouth 2 [place] [address] (two) Medical times Branch daily. metoprolol 2022-0 Yes 25mg Take 25 mg U nivers tartrate 25 08-13 by mouth 2 it y of mg tablet 17:55: (two) [place] [address] times Medical daily. Branch ergocalcife 2022-0 Yes Take by Uni vers rol, 08-13 mouth. ity of vitamin D2, 17:55: [place] (VITAMIN D 41 Medical ORAL) Branch lisinopril 2022-0 Yes 5mg Take 5 mg Un shahram (ZESTRIL) 5 27 by mouth ity of mg tablet 17:55: daily. [place] [address] Medical Branch atenolol 2022-0 Yes 25mg Take 25 mg Uni vers (TENORMIN) 08-13 by mouth 2 ity of 25 mg 17:55: (two) [place] tablet 41 times Medical daily. Branch ISOSORBIDE 2022-0 Yes 30mg Take 30 mg U nivers ORAL 27 by mouth ity of 17:55: daily. [address] Branch amLODIPine 2022-0 Yes 10mg Take 10 mg U nivers (NORVASC) 1-27 by mouth ity of 10 mg 17:55: daily. [place] [facility] 41 Medical Branch POTASSIUM 0 Yes 2{tbl} Take 2 Univ ers GLUCONATE - Tabs by ity of ORAL 17:55: mouth 2 [place] [address] (two) Medical times Branch daily. metoprolol 2022-0 Yes 25mg Take 25 mg U nivers tartrate 25 08-13 by mouth 2 it y of mg tablet 17:55: (two) [place] [address] times Medical daily. Branch ergocalcife 0 Yes Take by Uni vers rol, 08-13 mouth. ity of vitamin D2, 17:55: [place] (VITAMIN D 41 Medical ORAL) Branch lisinopril 0 Yes 5mg Take 5 mg Un shah[facility] (ZESTRIL) 5 08-13 by mouth ity of mg tablet 17:55: daily. [address] Branch atenolol 0 Yes 25mg Take 25 mg Uni vers (TENORMIN) 08-13 by mouth 2 ity of 25 mg 17:55: (two) [place] tablet 41 times Medical daily. Branch ISOSORBIDE 0 Yes 30mg Take 30 mg U nivers ORAL 08-13 by mouth ity of 17:55: daily. [address] Branch amLODIPine 0 Yes 10mg Take 10 mg U nivers (NORVASC) 08-13 by mouth ity of 10 mg 17:55: daily. [place] [address] Medical Branch POTASSIUM 0 Yes 2{tbl} Take 2 Univ ers GLUCONATE - Tabs by ity of ORAL 17:55: mouth 2 [place] [address] (two) Medical times [place] daily. metoprolol 2022-0 Yes 25mg Take 25 mg U nivers tartrate 25 08-13 by mouth 2 it y of mg tablet 17:55: (two) [place] [address] times Medical daily. Branch ergocalcife 0 Yes Take by Uni vers rol, 08-13 mouth. ity of vitamin D2, 17:55: [place] (VITAMIN D 41 Medical ORAL) Branch lisinopril 0 Yes 5mg Take 5 mg Un sh[facility] (ZESTRIL) 5 -27 by mouth ity of mg tablet 17:55: daily. [address] Branch atenolol 0 Yes 25mg Take 25 mg Uni vers (TENORMIN) - by mouth 2 ity of 25 mg 17:55: (two) [place] tablet 41 times Medical daily. Branch ISOSORBIDE 2022-0 Yes 30mg Take 30 mg U nivers ORAL -27 by mouth ity of 17:55: daily. [place] [address] Medical Branch amLODIPine 0 Yes 10mg Take 10 mg U nivers (NORVASC) -27 by mouth ity of 10 mg 17:55: daily. [place] tablet 41 Medical Branch POTASSIUM 2022-0 Yes 2{tbl} Take 2 Univ ers GLUCONATE -27 Tabs by ity of ORAL 17:55: mouth 2 [place] [address] (two) Medical times Branch daily. metoprolol 2022-0 Yes 25mg Take 25 mg U nivers tartrate 25 08-13 by mouth 2 it y of mg tablet 17:55: (two) [place] 41 times Medical daily. Branch ergocalcife 0 Yes Take by Uni vers rol, 08-13 mouth. ity of vitamin D2, 17:55: [place] (VITAMIN D 41 Medical ORAL) Branch lisinopril 0 Yes 5mg Take 5 mg Un sh[facility] (ZESTRIL) 5 08-13 by mouth ity of mg tablet 17:55: daily. [address] Branch atenolol 0 Yes 25mg Take 25 mg Uni vers (TENORMIN) 08-13 by mouth 2 ity of 25 mg 17:55: (two) [place] tablet 41 times Medical daily. Branch ISOSORBIDE 0 Yes 30mg Take 30 mg U nivers ORAL 08-13 by mouth ity of 17:55: daily. [place] [address] Medical Branch amLODIPine 0 Yes 10mg Take 10 mg U nivers (NORVASC) -27 by mouth ity of 10 mg 17:55: daily. [place] tablet 41 Medical Branch POTASSIUM 2022-0 Yes 2{tbl} Take 2 Univ ers GLUCONATE -27 Tabs by ity of ORAL 17:55: mouth 2 [place] 41 (two) Medical times Branch daily. metoprolol 2022-0 Yes 25mg Take 25 mg U nivers tartrate 25 -27 by mouth 2 it y of mg tablet 17:55: (two) [place] 41 times Medical daily. Branch ergocalcife 2023-0 Yes Take by Uni vers rol, 08-13 mouth. ity of vitamin D2, 17:55: [place] (VITAMIN D 41 Medical ORAL) Branch lisinopril 2022-0 Yes 5mg Take 5 mg Un sh[facility] (ZESTRIL) 5 08-13 by mouth ity of mg tablet 17:55: daily. [place] [address] Medical Branch atenolol 2022-0 Yes 25mg Take 25 mg Uni vers (TENORMIN) 08-13 by mouth 2 ity of 25 mg 17:55: (two) [place] tablet 41 times Medical daily. Branch ISOSORBIDE 2022-0 Yes 30mg Take 30 mg U nivers ORAL 08-13 by mouth ity of 17:55: daily. [place] [address] Medical Branch amLODIPine 2022-0 Yes 10mg Take 10 mg U nivers (NORVASC) 08-13 by mouth ity of 10 mg 17:55: daily. [place] [address] Medical Branch POTASSIUM 2022-0 Yes 2{tbl} Take 2 Univ ers GLUCONATE 08-13 Tabs by ity of ORAL 17:55: mouth 2 [place] [address] (two) Medical times Branch daily. metoprolol 2022-0 Yes 25mg Take 25 mg U nivers tartrate 25 08-13 by mouth 2 it y of mg tablet 17:55: (two) [place] [address] times Medical daily. Branch ergocalcife 0 Yes Take by Uni vers rol, 08-13 mouth. ity of vitamin D2, 17:55: [place] (VITAMIN D 41 Medical ORAL) Branch lisinopril 2022-0 Yes 5mg Take 5 mg Un shah[facility] (ZESTRIL) 5 08-13 by mouth ity of mg tablet 17:55: daily. [place] [address] Medical Branch atenolol 2022-0 Yes 25mg Take 25 mg Uni vers (TENORMIN) 08-13 by mouth 2 ity of 25 mg 17:55: (two) [place] tablet 41 times Medical daily. Branch ISOSORBIDE 2022-0 Yes 30mg Take 30 mg U nivers ORAL 08-13 by mouth ity of 17:55: daily. [place] [address] Medical Branch amLODIPine 2022-0 Yes 10mg Take 10 mg U nivers (NORVASC) 08-13 by mouth ity of 10 mg 17:55: daily. [place] [address] Medical Branch POTASSIUM 2022-0 Yes 2{tbl} Take 2 Univ ers GLUCONATE 1-27 Tabs by ity of ORAL 17:55: mouth 2 [place] [address] (two) Medical times [place] daily. metoprolol 2022-0 Yes 25mg Take 25 mg U nivers tartrate 25 - by mouth 2 it y of mg tablet 17:55: (two) [place] 41 times Medical daily. Branch ergocalcife 2022-0 Yes Take by Uni vers rol, 08-13 mouth. ity of vitamin D2, 17:55: [place] (VITAMIN D 41 Medical ORAL) Branch lisinopril 2022-0 Yes 5mg Take 5 mg Un shah[facility] (ZESTRIL) 5 - by mouth ity of mg tablet 17:55: daily. [address] Branch atenolol 2022-0 Yes 25mg Take 25 mg Uni vers (TENORMIN) 08-13 by mouth 2 ity of 25 mg 17:55: (two) [place] tablet 41 times Medical daily. Branch ISOSORBIDE 2022-0 Yes 30mg Take 30 mg U nivers ORAL 08-13 by mouth ity of 17:55: daily. [address] Branch amLODIPine 0 Yes 10mg Take 10 mg U nivers (NORVASC) 08-13 by mouth ity of 10 mg 17:55: daily. [place] [address] Medical Branch POTASSIUM 0 Yes 2{tbl} Take 2 Univ ers GLUCONATE -27 Tabs by ity of ORAL 17:55: mouth 2 [place] [address] (two) Medical times [place] daily. metoprolol 2022-0 Yes 25mg Take 25 mg U nivers tartrate 25 - by mouth 2 it y of mg tablet 17:55: (two) [place] 41 times Medical daily. Branch ergocalcife 2022-0 Yes Take by Uni vers rol, 08-13 mouth. ity of vitamin D2, 17:55: [place] (VITAMIN D 41 Medical ORAL) Branch lisinopril 2022-0 Yes 5mg Take 5 mg Un sh[facility] (ZESTRIL) 5 -27 by mouth ity of mg tablet 17:55: daily. [address] Branch atenolol 2022-0 Yes 25mg Take 25 mg Uni vers (TENORMIN) -27 by mouth 2 ity of 25 mg 17:55: (two) [place] tablet 41 times Medical daily. Branch ISOSORBIDE 2022-0 Yes 30mg Take 30 mg U nivers ORAL - by mouth ity of 17:55: daily. [place] [address] Medical Branch amLODIPine 2022-0 Yes 10mg Take 10 mg U nivers (NORVASC) - by mouth ity of 10 mg 17:55: daily. [place] tablet 41 Medical Branch POTASSIUM 2022-0 Yes 2{tbl} Take 2 Univ ers GLUCONATE -27 Tabs by ity of ORAL 17:55: mouth 2 [place] [address] (two) Medical times Branch daily. metoprolol 2022-0 Yes 25mg Take 25 mg U nivers tartrate 25 08-13 by mouth 2 it y of mg tablet 17:55: (two) [place] 41 times Medical daily. Branch ergocalcife 0 Yes Take by Uni vers rol, 08-13 mouth. ity of vitamin D2, 17:55: [place] (VITAMIN D 41 Medical ORAL) Branch lisinopril 0 Yes 5mg Take 5 mg Un sh[facility] (ZESTRIL) 5 08-13 by mouth ity of mg tablet 17:55: daily. [address] Branch atenolol 0 Yes 25mg Take 25 mg Uni vers (TENORMIN) 08-13 by mouth 2 ity of 25 mg 17:55: (two) [place] tablet 41 times Medical daily. Branch ISOSORBIDE 0 Yes 30mg Take 30 mg U nivers ORAL 08-13 by mouth ity of 17:55: daily. [address] Branch amLODIPine 2022-0 Yes 10mg Take 10 mg U nivers (NORVASC) 08-13 by mouth ity of 10 mg 17:55: daily. [place] tablet 41 Medical Branch POTASSIUM 2022-0 Yes 2{tbl} Take 2 Univ ers GLUCONATE 1-27 Tabs by ity of ORAL 17:55: mouth 2 [place] [address] (two) Medical times [place] daily. metoprolol 2022-0 Yes 25mg Take 25 mg U nivers tartrate 25 - by mouth 2 it y of mg tablet 17:55: (two) [place] 41 times Medical daily. Branch ergocalcife 2022-0 Yes Take by Uni vers rol, 08-13 mouth. ity of vitamin D2, 17:55: [place] (VITAMIN D 41 Medical ORAL) Branch lisinopril 2022-0 Yes 5mg Take 5 mg Un sh[facility] (ZESTRIL) 5 1-27 by mouth ity of mg tablet 17:55: daily. [place] [address] Medical Branch atenolol 2022-0 Yes 25mg Take 25 mg Uni vers (TENORMIN) 1-27 by mouth 2 ity of 25 mg 17:55: (two) [place] tablet 41 times Medical daily. Branch ISOSORBIDE 2022-0 Yes 30mg Take 30 mg U nivers ORAL -27 by mouth ity of 17:55: daily. [place] [address] Medical Branch amLODIPine 2022-0 Yes 10mg Take 10 mg U nivers (NORVASC) -27 by mouth ity of 10 mg 17:55: daily. [place] [address] Medical Branch POTASSIUM 2022-0 Yes 2{tbl} Take 2 Univ ers GLUCONATE -27 Tabs by ity of ORAL 17:55: mouth 2 [place] [address] (two) Medical times [place] daily. metoprolol 2022-0 Yes 25mg Take 25 mg U nivers tartrate 25 -27 by mouth 2 it y of mg tablet 17:55: (two) [place] 41 times Medical daily. Branch ergocalcife 0 Yes Take by Uni vers rol, 08-13 mouth. ity of vitamin D2, 17:55: [place] (VITAMIN D 41 Medical ORAL) Branch lisinopril 0 Yes 5mg Take 5 mg Un sh[facility] (ZESTRIL) 5 1-27 by mouth ity of mg tablet 17:55: daily. [address] Branch atenolol 2022-0 Yes 25mg Take 25 mg Uni vers (TENORMIN) 1-27 by mouth 2 ity of 25 mg 17:55: (two) [place] tablet 41 times Medical daily. Branch ISOSORBIDE 2022-0 Yes 30mg Take 30 mg U nivers ORAL 1-27 by mouth ity of 17:55: daily. [address] Branch amLODIPine 2022-0 Yes 10mg Take 10 mg U nivers (NORVASC) -27 by mouth ity of 10 mg 17:55: daily. [place] [facility] 41 Medical Branch POTASSIUM 2022-0 Yes 2{tbl} Take 2 Univ ers GLUCONATE 1-27 Tabs by ity of ORAL 17:55: mouth 2 [place] 41 (two) Medical times Branch daily. metoprolol 2022-0 Yes 25mg Take 25 mg U nivers tartrate 25 08-13 by mouth 2 it y of mg tablet 17:55: (two) [place] [address] times Medical daily. Branch ergocalcife 2022-0 Yes Take by Uni vers rol, -27 mouth. ity of vitamin D2, 17:55: [place] (VITAMIN D 41 Medical ORAL) Branch lisinopril 2022-0 Yes 5mg Take 5 mg Un shahram (ZESTRIL) 5 08-13 by mouth ity of mg tablet 17:55: daily. [address] Branch atenolol 2022-0 Yes 25mg Take 25 mg Uni vers (TENORMIN) - by mouth 2 ity of 25 mg 17:55: (two) [place] tablet 41 times Medical daily. Branch ISOSORBIDE 2022-0 Yes 30mg Take 30 mg U nivers ORAL -27 by mouth ity of 17:55: daily. [address] amLODIPine 0 Yes 10mg Take 10 mg U nivers (NORVASC) 08-13 by mouth ity of 10 mg 17:55: daily. [place] [address] Medical Branch POTASSIUM 2022-0 Yes 2{tbl} Take 2 Univ ers GLUCONATE - Tabs by ity of ORAL 17:55: mouth 2 [place] [address] (two) Medical times [place] daily. metoprolol 2022-0 Yes 25mg Take 25 mg U nivers tartrate 25 08-13 by mouth 2 it y of mg tablet 17:55: (two) [place] [address] times Medical daily. Branch ergocalcife 0 Yes Take by Uni vers rol, 08-13 mouth. ity of vitamin D2, 17:55: [place] (VITAMIN D 41 Medical ORAL) Branch lisinopril 2022-0 Yes 5mg Take 5 mg Un [place] (ZESTRIL) 5 -27 by mouth ity of mg tablet 17:55: daily. [address] Branch atenolol 2022-0 Yes 25mg Take 25 mg Uni vers (TENORMIN) -27 by mouth 2 ity of 25 mg 17:55: (two) [place] tablet 41 times Medical daily. Branch ISOSORBIDE 2022-0 Yes 30mg Take 30 mg U nivers ORAL -27 by mouth ity of 17:55: daily. [place] [address] Medical Branch amLODIPine 0 Yes 10mg Take 10 mg U nivers (NORVASC) 08-13 by mouth ity of 10 mg 17:55: daily. [place] tablet 41 Medical Branch POTASSIUM 0 Yes 2{tbl} Take 2 Univ ers GLUCONATE -27 Tabs by ity of ORAL 17:55: mouth 2 [place] [address] (two) Medical times Branch daily. metoprolol 2022-0 Yes 25mg Take 25 mg U nivers tartrate 25 08-13 by mouth 2 it y of mg tablet 17:55: (two) [place] [address] times Medical daily. Branch ergocalcife 0 Yes Take by Uni vers rol, 08-13 mouth. ity of vitamin D2, 17:55: [place] (VITAMIN D 41 Medical ORAL) Branch lisinopril 0 Yes 5mg Take 5 mg Un [place] (ZESTRIL) 5 08-13 by mouth ity of mg tablet 17:55: daily. [address] Branch atenolol 0 Yes 25mg Take 25 mg Uni vers (TENORMIN) 08-13 by mouth 2 ity of 25 mg 17:55: (two) [place] tablet 41 times Medical daily. Branch ISOSORBIDE 0 Yes 30mg Take 30 mg U nivers ORAL 08-13 by mouth ity of 17:55: daily. [address] Branch amLODIPine 0 Yes 10mg Take 10 mg U nivers (NORVASC) 08-13 by mouth ity of 10 mg 17:55: daily. [place] [facility] 41 Medical Branch POTASSIUM 0 Yes 2{tbl} Take 2 Univ ers GLUCONATE - Tabs by ity of ORAL 17:55: mouth 2 [place] [address] (two) Medical times [place] daily. metoprolol 0 Yes 25mg Take 25 mg U nivers tartrate 25 08-13 by mouth 2 it y of mg tablet 17:55: (two) [place] [address] times Medical daily. Branch ergocalcife 0 Yes Take by Uni vers rol, 08-13 mouth. ity of vitamin D2, 17:55: [place] (VITAMIN D 41 Medical ORAL) Branch clopidogrel 2022-0 2022- No 75mg Take 75 mg Univers (PLAVIX) 75 08-13 by mouth ity of mg tablet 13:03: 00:00 daily. [place] 46 :00 Medical Branch aspirin 81 2022- No 81mg Take 81 mg Univers mg tablet 08-13 by mouth ity o f 13:03: 00:00 daily. [place] 46 :00 Medical Branch lisinopril 0 Yes 5mg Take 5 mg Un [place] (ZESTRIL) 5 08-13 by mouth ity of mg tablet 13:03: daily. [address] Branch atenolol 0 Yes 25mg Take 25 mg Uni vers (TENORMIN) 08-13 by mouth 2 ity of 25 mg 13:03: (two) [place] tablet 42 times Medical daily. Branch ISOSORBIDE 0 Yes 30mg Take 30 mg U nivers ORAL 08-13 by mouth ity of 13:03: daily. [place] [address] Medical Branch amLODIPine 0 Yes 10mg Take 10 mg U nivers (NORVASC) 08-13 by mouth ity of 10 mg 13:03: daily. [address] Branch POTASSIUM 0 Yes 2{tbl} Take 2 Univ ers GLUCONATE 08-13 Tabs by ity of ORAL 13:03: mouth 2 [place] [address] (two) Medical times [place] daily. metoprolol 0 Yes 25mg Take 25 mg U nivers tartrate 25 08-13 by mouth 2 it y of mg tablet 13:03: (two) [place] 42 times Medical daily. Branch ergocalcife Yes Take by Uni vers rol, 08-13 mouth. ity of vitamin D2, 13:03: [place] (VITAMIN D 42 Medical ORAL) Branch gabapentin 2022- No [id number] 300mg Take 1 Univers 300 mg - 04-28 capsule by ity of capsule 00:00: 04:59 mouth in [place] 00 :00 the Medical morning Branch and 1 capsule at noon and 1 capsule in the evening. Do all this for 90 days. methocarbam 2022-2022- No [id number] 1000mg Take 1,000 Univers oL 1,000 mg -27 04-28 mg by ity of Tab 00:00: 04:59 mouth 4 [place] 00 :00 (four) Medical times [place] daily for 90 days. gabapentin 2022-2022- No [id number] 300mg Take 1 Univers 300 mg 1-27 04-28 capsule by ity of capsule 00:00: 04:59 mouth in [place] 00 :00 the Medical morning Branch and 1 capsule at noon and 1 capsule in the evening. Do all this for 90 days. methocarbam 2023-0 2023- No [id number] 1000mg Take 1,000 Univers oL 1,000 mg 1-27 04-28 mg by ity of Tab 00:00: 04:59 mouth 4 [place] 00 :00 ([facility] daily for 90 days. gabapentin 2023-0 2023- No [id number] 300mg Take 1 Univers 300 mg 1-27 04-28 capsule by ity of capsule 00:00: 04:59 mouth in [place] 00 :00 the [facility] morning [place] and 1 capsule at noon and 1 capsule in the evening. Do all this for 90 days. methocarbam 2023-0 2023- No [id number] 1000mg Take 1,000 Univers oL 1,000 mg 1-27 04-28 mg by ity of Tab 00:: :59 mouth 4 [place] 00 :00 ([facility] daily for 90 days. gabapentin 2023-0 3- No [id number] 300mg Take 1 Univers 300 mg 1-27 04-28 capsule by ity of capsule 00:00: 04:59 mouth in [place] 00 :00 [facility] and 1 capsule at noon and 1 capsule in the evening. Do all this for 90 days. methocarbam 2023-0 3- No [id number] 1000mg Take 1,000 Univers oL 1,000 mg 1-27 04-28 mg by ity of Tab 00:00: :59 mouth 4 [place] 00 :00 ([facility] daily for 90 days. gabapentin 2023-0 2023- No [id number] 300mg Take 1 Univers 300 mg 1-27 04-28 capsule by ity of capsule 00:00: 04:59 mouth in [place] 00 :00 [facility] morning Branch and 1 capsule at noon and 1 capsule in the evening. Do all this for 90 days. methocarbam 2023-0 2023- No [id number] 1000mg Take 1,000 Univers oL 1,000 mg 1-27 04-28 mg by ity of Tab 00:00: 04:59 mouth 4 [place] 00 :00 (four) Medical times [place] daily for 90 days. gabapentin 2023-0 2023- No [id number] 300mg Take 1 Univers 300 mg 1-27 04-28 capsule by ity of capsule 00:00: 04:59 mouth in [place] 00 :00 the Medical morning Branch and 1 capsule at noon and 1 capsule in the evening. Do all this for 90 days. methocarbam 2023-0 2023- No [id number] 1000mg Take 1,000 Univers oL 1,000 mg 1-27 04-28 mg by ity of Tab 00:00: 04:59 mouth 4 [place] 00 :00 ([facility] times [place] daily for 90 days. gabapentin 2023-0 2023- No [id number] 300mg Take 1 Univers 300 mg 1-27 04-28 capsule by ity of capsule 00:00: 04:59 mouth in [place] 00 :00 the [facility] morning Branch and 1 capsule at noon and 1 capsule in the evening. Do all this for 90 days. methocarbam 2023-0 2023- No [id number] 1000mg Take 1,000 Univers oL 1,000 mg 1-27 04-28 mg by ity of Tab 00:00: 04:59 mouth 4 [place] 00 :00 [facility] times [place] daily for 90 days. gabapentin 2023-0 2023- No [id number] 300mg Take 1 Univers 300 mg 1-27 04-28 capsule by ity of capsule 00:00: 04:59 mouth in [place] 00 :00 the [facility] morning Branch and 1 capsule at noon and 1 capsule in the evening. Do all this for 90 days. methocarbam 2023-0 2023- No [id number] 1000mg Take 1,000 Univers oL 1,000 mg 1-27 04-28 mg by ity of Tab 00:00: 04:59 mouth 4 [place] 00 :00 [facility] times [place] daily for 90 days. gabapentin 2023-0 2023- No [id number] 300mg Take 1 Univers 300 mg 1-27 04-28 capsule by ity of capsule 00:00: 04:59 mouth in [place] 00 :00 the [facility] morning Branch and 1 capsule at noon and 1 capsule in the evening. Do all this for 90 days. methocarbam 2023-0 2023- No [id number] 1000mg Take 1,000 Univers oL 1,000 mg 1-27 04-28 mg by ity of Tab 00:00: 04:59 mouth 4 [place] 00 :00 ([facility]) Medical times [place] daily for 90 days. gabapentin 2023-0 2023- No [id number] 300mg Take 1 Univers 300 mg 1-27 04-28 capsule by ity of capsule 00:00: 04:59 mouth in [place] 00 :00 the Medical morning Branch and 1 capsule at noon and 1 capsule in the evening. Do all this for 90 days. methocarbam 2023-0 2023- No [id number] 1000mg Take 1,000 Univers oL 1,000 mg 1-27 04-28 mg by ity of Tab 00:00: 04:59 mouth 4 [place] 00 :00 ([facility]) Medical times [place] daily for 90 days. gabapentin 2023-0 2023- No [id number] 300mg Take 1 Univers 300 mg 1-27 04-28 capsule by ity of capsule 00:00: 04:59 mouth in [place] 00 :00 the Medical morning Branch and 1 capsule at noon and 1 capsule in the evening. Do all this for 90 days. methocarbam 2023-0 2023- No [id number] 1000mg Take 1,000 Univers oL 1,000 mg 1-27 04-28 mg by ity of Tab 00:00: 04:59 mouth 4 [place] 00 :00 [facility] times [place] daily for 90 days. gabapentin 2023-0 2023- No [id number] 300mg Take 1 Univers 300 mg 1-27 04-28 capsule by ity of capsule 00:00: 04:59 mouth in [place] 00 :00 the Medical morning Branch and 1 capsule at noon and 1 capsule in the evening. Do all this for 90 days. methocarbam 2023-0 2023- No [id number] 1000mg Take 1,000 Univers oL 1,000 mg 1-27 04-28 mg by ity of Tab 00:00: 04:59 mouth 4 [place] 00 :00 ([facility]) Medical times [place] daily for 90 days. gabapentin 2023-0 2023- No [id number] 300mg Take 1 Univers 300 mg 1-27 04-28 capsule by ity of capsule 00:00: 04:59 mouth in [place] 00 :00 the Medical morning Branch and 1 capsule at noon and 1 capsule in the evening. Do all this for 90 days. methocarbam 2023-0 2023- No [id number] 1000mg Take 1,000 Univers oL 1,000 mg 1-27 04-28 mg by ity of Tab 00:00: 04:59 mouth 4 [place] 00 :00 (four) Medical times [place] daily for 90 days. gabapentin 202-0 2023- No [id number] 300mg Take 1 Univers 300 mg 1-27 04-28 capsule by ity of capsule 00:00: 04:59 mouth in [place] 00 :00 the Branch and 1 capsule at noon and 1 capsule in the evening. Do all this for 90 days. methocarbam 202-0 2023- No [id number] 1000mg Take 1,000 Univers oL 1,000 mg 1-27 04-28 mg by ity of Tab 00:00: 04:59 mouth 4 [place] 00 :00 (four) [facility] times [place] daily for 90 days. gabapentin 2022-0 2023- No [id number] 300mg Take 1 Univers 300 mg 1-27 04-28 capsule by ity of capsule 00:00: 04:59 mouth in [place] 00 :00 the Branch and 1 capsule at noon and 1 capsule in the evening. Do all this for 90 days. methocarbam 2022-0 3- No [id number] 1000mg Take 1,000 Univers oL 1,000 mg 1-27 04-28 mg by ity of Tab 00:00: 04:59 mouth 4 [place] 00 :00 (four) [facility] times [place] daily for 90 days. KCL 2022-3- No 40meq 40 mEq, Univers (KLOR-CON 08-12-26 Oral, ity of M20) tablet 02:00: 02:25 ONCE, 1 [place] 40 mEq 00 :00 dose, On Tue Branch 08/11/22 at 2000, Routine KCL 2022-0 2022- No 40meq 40 mEq, Univers (KLOR-CON 08-11-25 Oral, ity of M20) tablet 13:30: 14:59 ONCE, 1 [place] 40 mEq 00 :00 dose, On Tue Branch 08/11/22 at 0730, Routine enoxaparin Yes 40mg 40 mg, Unive rs (LOVENOX) 1-20 Subcutaneo ity of injection 15:45: us, Q24H, [place] 40 mg 00 First dose Medical on Tue Branch 08/06/22 at 0945, Until Discontinu ed, Routine enoxaparin 3-0 Yes 40mg 40 mg, Unive rs (LOVENOX) 1-20 Subcutaneo ity of injection 15:45: us, Q24H, [place] 40 mg 00 First dose Medical on Tue Branch 08/06/22 at 0945, Until Discontinu ed, Routine polyethylen 3-0 Yes 17g 17 g, Unive rs e glycol 1-20 Oral, ity of 3350 powder 15:00: DAILY, [place] 17 g 00 First dose Medical on Tue Branch 08/06/22 at 0900, Until Discontinu ed, Routine polyethylen 3-0 Yes 17g 17 g, Unive rs e glycol 1-20 Oral, ity of 3350 powder 15:00: DAILY, [place] 17 g 00 First dose Medical on Tue Branch 08/06/22 at 0900, Until Discontinu ed, Routine morpHINE (2 2022-0 Yes 4mg 4 mg, Slow Univers mg/mL) 1-20 IV Push, ity of injection 4 14:45: Q3HPRN, [place] mg 00 Starting Medical on Tue Branch 08/06/22 at 0845, Until Discontinu ed, Routine, breakthrou gh pain scale 4-10 sennosides 2022-0 Yes 8.6mg 8.6 mg, Uni vers (SENOKOT) 1-20 Oral, BID, ity of tablet 8.6 14:45: First dose [place] mg 00 on Tue Medical 08/06/22 at Branch 0845, Until Discontinu ed, Routine morpHINE (2 2022-0 Yes 4mg 4 mg, Slow Univers mg/mL) 1-20 IV Push, ity of injection 4 14:45: Q3HPRN, [place] mg 00 Starting Medical on Tue Branch 08/06/22 at 0845, Until Discontinu ed, Routine, breakthrou gh pain scale 4-10 sennosides 3-0 Yes 8.6mg 8.6 mg, Uni vers (SENOKOT) 1-20 Oral, BID, ity of tablet 8.6 14:45: First dose [place] mg 00 on Tue Medical 08/06/22 at Branch 0845, Until Discontinu ed, Routine oxyCODONE 2023-0 Yes 5mg 5 mg, Univers immediate 08-06 Oral, ity of release 14:40: Q4HPRN, [place] tablet 5 mg 41 Starting Medi prashant on Tue08/06/22 at 0840, Until Discontinu ed, Routine, Pain (scale 7-10)<b r>community board member approving Restricted medication : PATI MARTIN oxyCODONE 2022-0 Yes 5mg 5 mg, Univers immediate 08-06 Oral, ity of release 14:40: Q4HPRN, [place] tablet 5 mg 41 Starting Medi prashant on Tue08/06/22 at 0840, Until Discontinu ed, Routine, Pain (scale 7-10)<b r>community board member approving Restricted medication : PATI MARTIN proMETHazin 2022- No 12.5mg 12.5 mg, Univers e 08-06 IV ity of (PHENERGAN) 04:15: 04:06 Piggyback, [place] 12.5 mg in 00 :00 at 200 Medical NS 50 mL IV mL/hr Branch piggyback Administer (CNR) over 15 Minutes, ONCE, 1 dose, On Tue08/05/22 at 2215, Routine proMETHazin 2022- No 12.5mg 12.5 mg, Univers e 08-06 IV ity of (PHENERGAN) 04:15: 04:06 Piggyback, [place] 12.5 mg in 00 :00 at 200 Medical NS 50 mL IV mL/hr Branch piggyback Administer (CNR) over 15 Minutes, ONCE, 1 dose, On Tue08/05/22 at 2215, Routine ceFAZolin 2022-2022- No 2000mg 2,000 mg, Univers (ANCEF) 08-06 Intravenou ity o f 2,000 mg in 02:00: 01:59 s, Q8H [place] NaCl 0.9% 00 :00 ABX, 15 Medical (NS) 100 mL doses, Branch MINI-BAG First dose on Tue08/05/22 at 2000, Last dose on Tue08/10/22 at 1200, Administer over 30 Minutes, 100 mL
Reas on for Anti-Infec tive: Surgical Prophylaxi s
Surgi prashant Prophylaxi s: Neurosurge ry
Dura tion of therapy: within 24 hours of surgery ceFAZolin 2022-0 2022- No 2000mg 2,000 mg, Univers (ANCEF) 08-06 Intravenou ity o f 2,000 mg in 02:00: 14:00 s, Q8H [place] NaCl 0.9% 00 :41 ABX, 15 Medical (NS) 100 mL doses, [place] MINI-BAG First dose on Tue08/05/22 at 2000, Last dose on Tue08/10/22 at 1200, Administer over 30 Minutes, 100 mL
Reas on for Anti-Infec tive: Surgical Prophylaxi s
Surgi prashant Prophylaxi s: Neurosurge ry
Dura tion of therapy: within 24 hours of surgery acetaminoph 2022-0 Yes 650mg 650 mg, Un shahram en -19 Oral, Q8H, ity of (TYLENOL) 23:00: First dose [place] tablet 650 00 on Lisa Medical mg 08/05/22 at Branch 1700, Until Discontinu ed, Routine acetaminoph 2022-0 Yes 650mg 650 mg, Un sh[place] en 19 Oral, Q8H, ity of (TYLENOL) 23:00: First dose [place] tablet 650 00 on Lisa Medical mg 08/05/22 at Branch 1700, Until Discontinu ed, Routine HYDROcodone 2022-0 2022- No 1{tbl} 1 tablet, Univers -acetaminop 08-05 Oral, ity of hen (NORCO 22:45: 23:32 ONCE, 1 [place] 5) 5-325 mg 00 :00 dose, On Medi prashant tablet [place] Branch tablet 08/05/22 at 1645, Routine, PACU HYDROcodone 2022-0 2022- No 1{tbl} 1 tablet, Univers -acetaminop 08-05 Oral, ity of hen (NORCO 22:45: 23:32 ONCE, 1 [place] 5) 5-325 mg 00 :00 dose, On Medi prashant tablet 1 [place] Branch tablet 08/05/22 at 1645, Routine, PACU HYDROmorphO 2022-2022- No .2mg 0.2 mg, Un shahram ne 08-05 Slow IV ity of (DILAUDID) 22:41: 00:08 Push, [place] injection 50 :30 Q5MIN PRN, Medi prashant 0.2 mg 10 doses, Branch Starting on Lisa 08/05/22 at 1641, Until Lisa 08/05/22 at 1808, Routine, Pain (scale 7-10), PACU
Us e approved by (Faculty): PACU USE -ANESTHESI A SERVICE-HY DROMORPHON E INJECTIONS HYDROmorphO 2022- No .2mg 0.2 mg, Un sh[place] ne 08-05 Slow IV ity of (DILAUDID) 22:41: 00:08 Push, [place] injection 50 :30 Q5MIN PRN, Medi prashant 0.2 mg 10 doses, Branch Starting on Lisa 08/05/22 at 1641, Until Lisa 08/05/22 at 1808, Routine, Pain (scale 7-10), PACU
Us e approved by (Faculty): PACU USE -ANESTHESI A SERVICE-HY DROMORPHON E INJECTIONS vancomycin 0 Yes PRN, Univers (VANCOCIN) 08-05 Starting ity o f injection 21:55: on Lisa [place] 08/05/22 at [facility] 1555, Branch Until Discontinu ed, LASHONDA, Intra-op vancomycin 2022-0 Yes PRN, Univers (VANCOCIN) 08-05 Starting ity o f injection 21:55: on Lisa [place] 08/05/22 at [facility] 1555, [place] Until Discontinu ed, LASHONDA, Intra-op lidocaine-e 2022-0 Yes PRN, Univer s pinephrine 08-05 Starting ity o f (XYLOCAINE 19:39: on Lisa [place] WITH 08/05/22 at Medical EPINEPHRINE 1339, Branch ) 1 Until %-1:100,000 Discontinu injection ed, Routine, Intra-op lidocaine-e 2022-0 Yes PRN, Univer s pinephrine 08-05 Starting ity o f (XYLOCAINE 19:39: on Lisa [place] WITH 08/05/22 at Medical EPINEPHRINE 1339, Branch ) 1 Until %-1:100,000 Discontinu injection ed, Routine, Intra-op enoxaparin 2022-0 2022- No 40mg 40 mg, Univ ers (LOVENOX) 08-01 Subcutaneo ity of injection 15:00: 00:00 us, Q24H, [place] 40 mg 00 :23 First dose Medical on [place] Branch 08/01/22 at 0900, Until Discontinu ed, Routine enoxaparin 0 2022- No 40mg 40 mg, Univ ers (LOVENOX) 08-01 Subcutaneo ity of injection 15:00: 00:00 us, Q24H, [place] 40 mg 00 :23 First dose Medical on [place] Branch 08/01/22 at 0900, Until Discontinu ed, Routine ondansetron Yes 4mg 4 mg, Slow Univers (ZOFRAN 1-14 IV Push, ity of (PF)) 19:12: Q6HPRN, [place] injection 4 46 Nausea and Me dical mg Vomiting Branch (N/V), Starting on 07/31/22 at 1312
Do ses of ondansetro n 16 mg and above need to be administer ed via IV piggyback. For Dose >=24mg ECG monitoring is advisable.
ondansetron 0 Yes 4mg 4 mg, Slow Univers (ZOFRAN 1-14 IV Push, ity of (PF)) 19:12: Q6HPRN, [place] injection 4 46 Nausea and Me dical mg Vomiting Branch (N/V), Starting on 07/31/22 at 1312
Do ses of ondansetro n 16 mg and above need to be administer ed via IV piggyback. For Dose >=24mg ECG monitoring is advisable.
tc 2022- No [id number] 25.4mCi 25.4 Unive rs 99m-labeled 07-30 [place] i ty of red blood 15:45: 15:36 , [place] cells 00 :00 Intravenou Medical (ULTRATAG s, ONCE, 1 Bran ch RBC) dose, On injection Fri 25.4 07/30/22 at millicurie 0945, Routine tc 2022- No [id number] 25.4mCi 25.4 Unive rs 99m-labeled 07-30 [place] i ty of red blood 15:45: 15:36 , [place] cells 00 :00 Intravenou Medical (ULTRATAG s, ONCE, 1 Bran ch RBC) dose, On injection Fri 25.4 07/30/22 at millicurie 0945, Routine perflutren 2022- No [id number] 2mL 2 mL, IV Univers lipid 07-29 Push, ity of microsphere 20:00: 20:00 ONCE, 1 [place] 00 :00 dose, On Medical (DEFINITY) [place] Branch injection 2 07/29/22 at mL 1400, Routine perflutren 2022- No [id number] 2mL 2 mL, IV Univers lipid 07-29 Push, ity of microsphere 20:00: 20:00 ONCE, 1 [place] 00 :00 dose, On Medical (DEFINITY) [place] Branch injection 2 07/29/22 at mL 1400, Routine regadenoson 2022- No [id number] .4mg 0.4 mg, IV Univers (LEXISCAN) 07-29 Push, ity of injection 16:15: 15:36 ONCE, 1 [place] 0.4 mg 00 :00 dose, On Medical [place] Branch 07/29/22 at 1015, Routine
community board member approving Restricted medication : MARJORIE MARIA regadenoson 2022- No [id number] .4mg 0.4 mg, IV Univers (LEXISCAN) 07-29 Push, ity of injection 16:15: 15:36 ONCE, 1 [place] 0.4 mg 00 :00 dose, On Medical [place] Branch 07/29/22 at 1015, Routine
community board member approving Restricted medication : MARJORIE MARIA tc 2022- No [id number] 15.9mCi 15.9 Unive rs 99m-tetrofo 07-29 [place] i ty of smin 15:45: 15:37 , [place] (MYOVIEW) 00 :00 Intravenou Medi prashant injection s, ONCE, 1 Bran ch 15.9 dose, On millicurie Lisa 07/29/22 at 0945, Routine tc 2022-0 2022- No [id number] 15.9mCi 15.9 [facility] rs 99m-tetrofo 07-29 [facility] i ty of smin 15:45: 15:37 , [place] (MYOVIEW) 00 :00 Intravenou Medi prashant injection s, ONCE, 1 Bran ch 15.9 dose, On [facility] 07/29/22 at 0945, Routine cholecalcif 2022-0 Yes 1000U 1,000 [facility] ers ilia -11 Units, ity of (vitamin 15:00: Oral, [place] D3) tablet 00 DAILY, Medical 1,000 Units First dose Br anch on Tue07/28/22 at 0900, Until Discontinu ed cholecalcif 2022-0 Yes 1000U 1,000 [facility] ers ilia 11 Units, ity of (vitamin 15:00: Oral, [place] D3) tablet 00 DAILY, Medical 1,000 Units First dose Br anch on Tue07/28/22 at 0900, Until Discontinu ed enoxaparin 2022-0 2022- No 40mg 40 mg, [facility] ers (LOVENOX) 07-28 Subcutaneo ity of injection 15:00: 04:29 us, DAILY, [place] 40 mg 00 :03 First dose Medical on Tue [place] 07/28/22 at 0900, Until Discontinu ed, Routine enoxaparin 2022-0 2022- No 40mg 40 mg, [facility] ers (LOVENOX) 07-28 Subcutaneo ity of injection 15:00: 04:29 us, DAILY, [place] 40 mg 00 :03 First dose Medical on Tue [place] 07/28/22 at 0900, Until Discontinu ed, Routine gabapentin 2022-0 Yes 300mg 300 mg, Uni vers (NEURONTIN) 07-28 Oral, TID, it y of capsule 300 02:00: First dose [place] mg 00 on [facility] 07/27/22 at Branch 2000, Until Discontinu ed, Routine famotidine 0 Yes 20mg 20 mg, [facility] rs (PEPCID AC) 07-28 Oral, BID, it y of tablet 20 02:00: First dose [place] mg 00 on [facility] 07/27/22 at Branch 2000, Until Discontinu ed, Routine docusate 2023-0 Yes 100mg 100 mg, Unive rs (COLACE) 1-11 Oral, BID, ity o f capsule 100 02:00: First dose [place] mg 00 on [facility] 07/27/22 at [place] [address], Until Discontinu ed, Routine gabapentin 2022-0 Yes 300mg 300 mg, Uni vers (NEURONTIN) 11 Oral, TID, it y of capsule 300 02:00: First dose [place] mg 00 on [facility] 07/27/22 at [place] [address], Until Discontinu ed, Routine famotidine 2022-0 Yes 20mg 20 mg, Unive rs (PEPCID AC) 11 Oral, BID, it y of tablet 20 02:00: First dose [place] mg 00 on [facility] 07/27/22 at [place] [address], Until Discontinu ed, Routine docusate 2022-0 Yes 100mg 100 mg, Unive rs (COLACE) 11 Oral, BID, ity o f capsule 100 02:00: First dose [place] mg 00 on [facility] 07/27/22 at [place] [address], Until Discontinu ed, Routine metoprolol 2022-0 202- No 25mg 25 mg, Univ ers tartrate 07-28 Oral, BID, ity of (LOPRESSOR) 02:00: 23:50 First dose [place] tablet 25 00 :55 on Tue Medical mg 07/27/22 at [place] [address], Until Discontinu ed, Routine metoprolol 2022-0 2022- No 25mg 25 mg, Univ ers tartrate 07-28 Oral, BID, ity of (LOPRESSOR) 02:00: 23:50 First dose [place] tablet 25 00 :55 on Tue Medical mg 07/27/22 at [place] [address], Until Discontinu ed, Routine HYDROcodone 2022-0 2022- No 1{tbl} 1 tablet, Univers -acetaminop 07-28 Oral, ity of hen (NORCO 01:49: 14:41 Q6HPRN, [place] 5) 5-325 mg 15 :49 Starting Medi prashant tablet 1 on Tue [place] tablet 07/27/22 at 1949, Until Tue08/06/22 at 0841, Routine, Pain (scale 4-6) HYDROcodone 2022- No 1{tbl} 1 tablet, Univers -acetaminop 07-28 Oral, ity of hen (NORCO 01:49: 14:41 Q6HPRN, [place] 5) 5-325 mg 15 :49 Starting Medi prashant tablet 1 on [facility] tablet 07/27/22 at 1949, Until 08/06/22 at 0841, Routine, Pain (scale 4-6) morpHINE (2 2022- No 2mg 2 mg, Slow Univers mg/mL) 07-28 IV Push, ity of injection 2 01:47: 14:41 Q2HPRN, [place] mg 51 :49 Starting Medical on [facility] [place] [facility] 07/27/22 at 1947, Until Tue08/06/22 at 0841, Routine, Pain (scale 7-10) morpHINE (2 2022- No 2mg 2 mg, Slow Univers mg/mL) 07-28 IV Push, ity of injection 2 01:47: 14:41 Q2HPRN, [place] mg 51 :49 Starting Medical on [facility] 07/27/22 at 1947, Until Tue08/06/22 at 0841, Routine, Pain (scale 7-10) bisacodyL Yes 10mg 10 mg, Univer s (DULCOLAX) 07-28 Rectal, ity of suppository 01:45: QHSPRN, [place] 10 mg 59 Starting Medical on [facility] 07/27/22 at 1945, Until Discontinu ed, Routine, Constipati on NaCl 0.9% Yes 5mL 5 mL, Slow Un [facility] (NS) 07-28 IV Push, ity of injection 5 01:45: PRN - [place] mL 59 [employer] Medical NS, Branch Starting on 07/27/22 at 1945, Until Discontinu ed, 10 mL bisacodyL Yes 10mg 10 mg, Univer s (DULCOLAX) 07-28 Rectal, ity of suppository 01:45: QHSPRN, [place] 10 mg 59 Starting Medical on [facility] 07/27/22 at 1945, Until Discontinu ed, Routine, Constipati on NaCl 0.9% 0 Yes 5mL 5 mL, Slow Un [place] (NS) 1-11 IV Push, ity of injection 5 01:45: PRN - SEE [place] mL 59 [facility] Medical , Branch Starting on Tue07/27/22 at 1945, Until Discontinu ed, 10 mL lisinopril 0 Yes 5mg Take 5 mg Un [place] (ZESTRIL) 5 1-10 by mouth ity of mg tablet 19:48: daily. [address] atenolol 0 Yes 25mg Take 25 mg Uni vers (TENORMIN) 1-10 by mouth 2 ity of 25 mg 19:48: (two) [place] tablet times Medical daily. Branch ISOSORBIDE 0 Yes 30mg Take 30 mg U nivers ORAL 1-10 by mouth ity of 19:48: daily. [address] clopidogrel 0 Yes 75mg Take 75 mg Univers (PLAVIX) 75 1-10 by mouth ity of mg tablet 19:48: daily. [address] amLODIPine 0 Yes 10mg Take 10 mg U nivers (NORVASC) 1-10 by mouth ity of 10 mg 19:48: daily. [address] POTASSIUM 2022-0 Yes 2{tbl} Take 2 Univ ers GLUCONATE 1-10 Tabs by ity of ORAL 19:48: mouth 2 [place] [address] (two) Medical times Branch daily. aspirin 81 0 Yes 81mg Take 81 mg U nivers mg tablet 1-10 by mouth ity of 19:48: daily. [address] metoprolol 0 Yes 25mg Take 25 mg U nivers tartrate 25 1-10 by mouth 2 it y of mg tablet 19:48: (two) [place] 46 times Medical daily. Branch ergocalcife 0 Yes Take by Uni vers rol, 1-10 mouth. ity of vitamin D2, 19:48: [place] (VITAMIN D Medical ORAL) [place] ketorolac 0 No 30mg 30 mg, Unive rs (TORADOL) 1-10 01-10 Intramuscu ity of injection 18:30: 18:18 lar, ONCE, [place] 30 mg 00 :00 1 dose, On Medical Tue Branch 07/27/22 at 1230, Routine dexamethaso 2023-0 2023- No 10mg 10 mg, Uni vers ne 07-27 Oral, ity of (DECADRON 18:30: 18:17 ONCE, 1 [place] PHOSPHATE) 00 :00 dose, On Medic al injection Tue Branch 10 mg 07/27/22 at 1230, Routine ketorolac 3-0 202- No 30mg 30 mg, Unive rs (TORADOL) 07-27 Intramuscu ity of injection 18:30: 18:18 lar, ONCE, [place] 30 mg 00 :00 1 dose, On Medical Tue Branch 07/27/22 at 1230, Routine dexamethaso 2022-0 202- No 10mg 10 mg, Uni vers ne 07-27 Oral, ity of (DECADRON 18:30: 18:17 ONCE, 1 [place] PHOSPHATE[place] 00 :00 dose, On Medic al injection e Branch 10 mg 07/27/22 at 1230, Routine methocarbam 2023-0 Yes 1000mg 1,000 mg, Univers oL 1-10 Oral, QID, ity of (ROBAXIN) 18:00: First dose [place] tablet 00 on [facility] 1,000 mg 07/27/22 at Branc h 1200, Until Discontinu ed, Routine methocarbam 2023-0 Yes 1000mg 1,000 mg, Univers oL 1-10 Oral, QID, ity of (ROBAXIN) 18:00: First dose [place] tablet 00 on [facility] 1,000 mg 07/27/22 at Branc h 1200, Until Discontinu ed, Routine Acetaminoph Acetaminoph 202-0 No 1{table Acetaminop en-Codeine en-Codeine 3-15 t_as_ne hen-Codein 300-30 MG 300-30 MG 00:00: eded} e 300-30 00 MG Acetaminoph Acetaminoph 202-0 No 1{table Acetaminop en-Codeine en-Codeine 3-15 t_as_ne hen-Codein 300-30 MG 300-30 MG 00:00: eded} e 300-30 00 MG Acetaminoph Acetaminoph 202-0 No 1{table Acetaminop en-Codeine en-Codeine 3-15 t_as_ne [...] mouth ity of mg tablet 20:06: daily. [place] [address] Medical Branch atenolol 2020-0 Yes 25mg Take 25 mg Uni vers (TENORMIN) 5-20 by mouth 2 ity of 25 mg 20:06: (two) [place] [facility] 53 times Medical daily. Branch ISOSORBIDE 2020-0 Yes 30mg Take 30 mg U nivers ORAL 5-20 by mouth ity of 20:06: daily. [place] [address] Medical Branch clopidogrel 2020-0 Yes 75mg Take 75 mg Univers (PLAVIX) 75 5-20 by mouth ity of mg tablet 20:06: daily. [place] [address] Medical Branch amLODIPine 2020-0 Yes 10mg Take 10 mg U nivers (NORVASC) 5-20 by mouth ity of 10 mg 20:06: daily. [place] [address] Medical [place] POTASSIUM 2020-0 Yes 2{tbl} Take 2 Univ ers GLUCONATE 5-20 Tabs by ity of ORAL 20:06: mouth 2 [place] [address] (two) Medical times Branch daily. aspirin 81 2020-0 Yes 81mg Take 81 mg U nivers mg tablet 5-20 by mouth ity of 20:06: daily. [place] [address] Medical Branch metoprolol 2020-0 Yes 25mg Take 25 mg U nivers tartrate 25 5-20 by mouth 2 it y of mg tablet 20:06: (two) [place] [address] times Medical daily. Branch ergocalcife 2020-0 Yes Take by Uni vers rol, 5-20 mouth. ity of vitamin D2, 20:06: [place] (VITAMIN D 53 Medical ORAL) Branch lisinopril 2020-0 Yes 5mg Take 5 mg Un [facility] (ZESTRIL) 5 5-20 by mouth ity of mg tablet 20:06: daily. [place] [address] Medical Branch atenolol 2020-0 Yes 25mg Take 25 mg Uni vers (TENORMIN) 5-20 by mouth 2 ity of 25 mg 20:06: (two) [place] tablet 53 times Medical daily. Branch ISOSORBIDE 2020-0 Yes 30mg Take 30 mg U nivers ORAL 5-20 by mouth ity of 20:06: daily. [place] [address] Medical Branch clopidogrel 2020-0 Yes 75mg Take 75 mg Univers (PLAVIX) 75 5-20 by mouth ity of mg tablet 20:06: daily. [place] [address] Medical Branch amLODIPine 2020-0 Yes 10mg Take 10 mg U nivers (NORVASC) 5-20 by mouth ity of 10 mg 20:06: daily. [place] [address] Medical Branch POTASSIUM 2020-0 Yes 2{tbl} Take 2 Univ ers GLUCONATE 5-20 Tabs by ity of ORAL 20:06: mouth 2 [place] [address] (two) Medical times [place] daily. aspirin 81 2020-0 Yes 81mg Take 81 mg U nivers mg tablet 5-20 by mouth ity of 20:06: daily. [place] [address] Medical Branch metoprolol 2020-0 Yes 25mg Take 25 mg U nivers tartrate 25 5-20 by mouth 2 it y of mg tablet 20:06: (two) [address] daily[address] Branch ergocalcife 2020-0 Yes Take by Uni vers rol, 5-20 mouth. ity of vitamin D2, 20:06: [place] (VITAMIN D 53 Medical ORAL) Branch lactated 2020-0 Yes 500mL at 75 Univers ringers IV 5-20 mL/hr, 500 ity of infusion 17:30: mL, IV [place] 500 mL 00 Infusion, Medical CONTINUOUS Branch , Starting Tue12/05/19 at 1230, Until Discontinu ed, Routine, PACU sodium 2020-0 Yes PRN, Univers chloride 5-20 Starting ity of (NS) 17:03: Wed [place] injection 00 12/05/19 at [facility] prashant 1203, Branch Until Discontinu ed, Routine, Intra-op lidocaine-e 2020-0 Yes PRN, Univer s pinephrine 5-20 Starting ity o f (XYLOCAINE 17:03: Tue [place] W/EPINEPHRI 12/05/19 at [facility] [place]) 2 1203, Branch %-1:200,000 Until injection Discontinu ed, Routine, Intra-op neomycin-po 2020-0 Yes PRN, Univer s lymyxin-dex 5-20 Starting ity of amethasone 17:01: Tue (MAXITROL) 12/05/19 at Med ical 3.5 1201, Branch mg/g-10,000 Until unit/g-0.1 Discontinu % ed, ophthalmic Routine, ointment Intra-op gentamicin 2020-0 Yes PRN, Univers injection 5-20 Starting ity of 17:00: Tue [place] 12/05/19 at Medical 1200, Branch Until Discontinu ed, LASHONDA, Intra-op water for 2020-0 Yes PRN, Univers irrigation 5-20 Starting ity o f irrigation 16:55: Tue [place] solution 12/05/19 at Medic al 1155, Branch Until Discontinu ed, Routine, Intra-op Hyaluronida 2020-0 Yes PRN, Univer s se, Human 5-20 Starting ity of Recomb. 16:50: Tue (HYLENEX) 12/05/19 at Medi prashant injection 1150, Branch Until Discontinu ed, Routine, Intra-op propofol IV 2020-0 2020- No Intravenou Univers infusion 5-20 05-20 s, ONCE ity of 16:50: 17:11 INTRA [place] 00 :01 PROCEDURE, Medical Starting Branch 12/05/19 at 1150, Until 12/05/19 at 1211, Routine, Intra-op remifentani 2020-0 2020- No Intravenou Univers l (ULTIVA) 5-20 05-20 s, ONCE ity o f injection 16:50: 17:11 INTRA [place] 00 :01 PROCEDURE, Medical Starting Branch 12/05/19 at 1150, Until 12/05/19 at 1211, Routine, Intra-op lactated 2020-0 2020- No IV Univers ringers IV 5-20 05-20 Infusion, ity of infusion 16:44: 17:11 CONTINUOUS [place] 00 :01 PRN, Medical Starting Branch 12/05/19 at 1144, Until 12/05/19 at 1211, Routine, Intra-op EPINEPHrine 2020-0 Yes PRN, Univer s 1:1,000 (1 5-20 Starting ity o f mg/mL) 16:36: Tue (ADRENALIN) 00 12/05/19 at Al dical injection 1136, Branch Until Discontinu ed, Routine, Intra-op DUOVISC 2020-0 Yes PRN, Univers (DUOVISC 5-20 Starting ity of VISCO 16:36: Tue ELASTIC) 3 00 12/05/19 at [facility] ical %-4 %(0.5 1136, Branch mL) 1 % Until (0.55 mL) Discontinu intraocular ed, injection Routine, Intra-op dexamethaso 2020-0 Yes PRN, Univer s ne 5-20 Starting ity of (DECADRON 16:36: Tue PHOSPHATE) 00 12/05/19 at [facility] ical injection 1136, Branch Until Discontinu ed, Routine, Intra-op ceFAZolin 2019-0 Yes PRN, Univers (ANCEF) 5-20 Starting ity of injection 16:36: Tue 00 12/05/19 at Medical 1136, Branch Until Discontinu ed, LASHONDA, Intra-op carbachoL 2020-0 Yes PRN, Univers (MIOSTAT) 5-20 Starting ity of 0.01 % 16:36: Tue intraocular 00 12/05/19 at Al dical injection 1136, Branch Until Discontinu ed, Routine, Intra-op bupivacaine 2020-0 Yes PRN, Univer s (preserv 5-20 Starting ity of free) 16:35: Tue (SENSORCAIN 00 12/05/19 at Al dical E [facility]) 0.75 1135, Branch % (7.5 Until mg/mL) Discontinu injection ed, Routine, Intra-op balanced 2020-0 Yes PRN, Univers salt irrig 5-20 Starting ity o f soln comb1 16:35: Tue (BSS PLUS) 00 12/05/19 at [facility] ical ophthalmic 1135, Branch solution Until 500 mL bag Discontinu ed, Routine, Intra-op mydriatic 2019-0 2020- No .5mL 0.5 mL, Univ ers #5 5-20 05-20 Left Eye, ity of ophthalmic 15:30: 15:39 ONCE, 1 [place] solution 00 :00 dose, Wed Medica l 0.5 mL 12/05/19 at [place] syringe 1030, Routine, DSU Pre-op lactated 2020-0 2020- No 500mL at 20 Univer s ringers IV -20 05-20 mL/hr, 500 it y of infusion 15:30: 15:39 mL, IV [place] 500 mL 00 :00 Infusion, Medical ONCE, 1 Branch dose, Tue12/05/19 at 1030, Routine, DSU Pre-op clopidogrel 2020-0 Yes 75mg Take 75 mg Univers (PLAVIX) 75 5-19 by mouth ity of mg tablet 13:18: daily. [place] Medical Branch lisinopril 2020-0 Yes 5mg Take 5 mg Un [facility] (ZESTRIL) 5 5-06 by mouth ity of mg tablet 18:51: daily. [place] 29 [facility] Branch atenolol 2020-0 Yes 25mg Take 25 mg Uni vers (TENORMIN) 5-06 by mouth 2 ity of 25 mg 18:51: (two) [place] tablet 29 times Medical daily. Branch ISOSORBIDE 2020-0 Yes 30mg Take 30 mg U nivers ORAL 5-06 by mouth ity of 18:51: daily. [address] Branch amLODIPine 2020-0 Yes 10mg Take 10 mg U nivers (NORVASC) 5-06 by mouth ity of 10 mg 18:51: daily. [place] [facility] 29 Medical Branch POTASSIUM 2020-0 Yes 2{tbl} Take 2 Univ ers GLUCONATE 5-06 Tabs by ity of ORAL 18:51: mouth 2 [place] 29 (two) Medical times Branch daily. aspirin 81 2020-0 Yes 81mg Take 81 mg U nivers mg tablet 5-06 by mouth ity of 18:51: daily. [address] Branch metoprolol 2020-0 Yes 25mg Take 25 mg U nivers tartrate 25 5-06 by mouth 2 it y of mg tablet 18:51: (two) [place] 29 times Medical daily. Branch ergocalcife 2020-0 Yes Take by Uni vers rol, 5-06 mouth. ity of vitamin D2, 18:51: [place] (VITAMIN D 29 Medical ORAL) Branch lisinopril 2020-0 Yes 5mg Take 5 mg Un [place] (ZESTRIL) 5 5-06 by mouth ity of mg tablet 18:51: daily. [address] Branch atenolol 2020-0 Yes 25mg Take 25 mg Uni vers (TENORMIN) 5-06 by mouth 2 ity of 25 mg 18:51: (two) [place] tablet 29 times Medical daily. Branch ISOSORBIDE 2020-0 Yes 30mg Take 30 mg U nivers ORAL 5-06 by mouth ity of 18:51: daily. [place] [address] Medical Branch clopidogrel 2020-0 Yes 75mg Take 75 mg Univers (PLAVIX) 75 5-06 by mouth ity of mg tablet 18:51: daily. [place] [address] Medical Branch amLODIPine 2020-0 Yes 10mg Take 10 mg U nivers (NORVASC) 5-06 by mouth ity of 10 mg 18:51: daily. [place] tablet 29 Medical Branch POTASSIUM 2020-0 Yes 2{tbl} Take 2 Univ ers GLUCONATE 5-06 Tabs by ity of ORAL 18:51: mouth 2 [place] [address] (two) Medical times Branch daily. aspirin 81 2020-0 Yes 81mg Take 81 mg U nivers mg tablet 5-06 by mouth ity of 18:51: daily. [place] [address] Medical Branch metoprolol 2020-0 Yes 25mg Take 25 mg U nivers tartrate 25 5-06 by mouth 2 it y of mg tablet 18:51: (two) [place] [address] times Medical daily. Branch ergocalcife 2020-0 Yes Take by Uni vers rol, 5-06 mouth. ity of vitamin D2, 18:51: [place] (VITAMIN D 29 Medical ORAL) Branch lactated 2020-0 Yes 1000mL at 75 Univer s ringers IV 5-06 mL/hr, ity of infusion 16:00: 1,000 mL, [place] 1,000 mL 00 IV Medical Infusion, Branch CONTINUOUS , Starting Tue11/21/19 at 1100, Until Discontinu ed, Routine, PACU water for 2020-0 Yes PRN, Univers irrigation 5-06 Starting ity o f irrigation 14:30: Tue11/21/19 [place] solution 00 at 0930, Medical Until Branch Discontinu ed, Routine, Intra-op sodium 2020-0 Yes PRN, Univers chloride 5-06 Starting ity of (NS) 14:29: Tue11/21/19 [place] injection 00 at 0929, Medica l Until Branch Discontinu ed, Routine, Intra-op neomycin-po 2020-0 Yes PRN, Univer s lymyxin-dex 5-06 Starting ity of amethasone 14:29: Tue11/21/19 [place] (MAXITROL) 00 at 09, Medic al 3.5 Until Branch mg/g-10,000 Discontinu unit/g-0.1 ed, % Routine, ophthalmic Intra-op ointment lidocaine-e 2020-0 Yes PRN, Univ s pinephrine 11-20 Starting ity o f (XYLOCAINE 14:29: Tue11/21/19 [place] W/EPINEPHRI 00 at 09, [facility] [place]) 2 Until Branch %-1:200,000 Discontinu injection ed, Routine, Intra-op Hyaluronida 2020-0 Yes PRN, [facility] s se, Human 11-20 Starting ity of Recomb. 14:28: Tue11/21/19 [place] (HYLENEX) 00 at 09, Medica l injection Until Branch Discontinu ed, Routine, Intra-op gentamicin 2020-0 Yes PRN, Univers injection 11-20 Starting ity of 14:28: Tue11/21/19 [place] 00 at 09, [facility] Until Branch Discontinu ed, LASHONDA, Intra-op EPINEPHrine 2020-0 Yes PRN, Univ s 1:1,000 (1 11-20 Starting ity o f mg/mL) 14:27: Tue11/21/19 [place] (ADRENALIN) 00 at 09, [facility] injection Until Branch Discontinu ed, Routine, Intra-op DUOVISC 2020-0 Yes PRN, Univers (DUOVISC 11-20 Starting ity of VISCO 14:27: Tue11/21/19 [place] ELASTIC) 3 00 at 09, Medic al %-4 %(0.5 Until Branch mL) 1 % Discontinu (0.55 mL) ed, intraocular Routine, injection Intra-op dexamethaso 2020-0 Yes PRN, [facility] Starting ity of (DECADRON 14:27: Tue11/21/19 [place] PHOSPHATE) 00 at 09, Medic al injection Until Branch Discontinu ed, Routine, Intra-op ceFAZolin 2020-0 Yes PRN, Univers (ANCEF) 11-20 Starting ity of injection 14:26: Tue11/21/19 [place] 00 at 0926, Medical Until Branch Discontinu ed, LASHONDA, Intra-op carbachoL 2020-0 Yes PRN, Univers (MIOSTAT) 11-20 Starting ity of 0.01 % 14:26: 5/6/20 [place] intraocular 00 at 0926, Medi prashant injection Until Branch Discontinu ed, Routine, Intra-op bupivacaine 2020-0 Yes PRN, Univer s (preserv 5-06 Starting ity of free) 14:25: Tue11/21/19 [place] (SENSORCAIN 00 at 0925, Medi prashant E MP[facility]) 0.75 Until Branch % (7.5 Discontinu mg/mL) ed, injection Routine, Intra-op balanced 2020-0 Yes PRN, Univers salt irrig 5-06 Starting ity o f soln comb1 14:25: [...] mouth ity of mg tablet 13:44: daily. [address] ISOSORBIDE 2020-0 Yes 30mg Take 30 mg U nivers ORAL 5-05 by mouth ity of 13:44: daily. [address] clopidogrel 2020-0 Yes 75mg Take 75 mg Univers (PLAVIX) 75 5-05 by mouth ity of mg tablet 13:44: daily. [address] amLODIPine 2020-0 Yes 10mg Take 10 mg U nivers (NORVASC) 5-05 by mouth ity of 10 mg 13:44: daily. [address] lisinopril 2020-0 Yes 5mg Take 5 mg Un sh[facility] (ZESTRIL) 5 5-05 by mouth ity of mg tablet 13:44: daily. [address] ISOSORBIDE 2020-0 Yes 30mg Take 30 mg U nivers ORAL 5-05 by mouth ity of 13:44: daily. [address] clopidogrel 2020-0 Yes 75mg Take 75 mg Univers (PLAVIX) 75 5-05 by mouth ity of mg tablet 13:44: daily. [place] [address] Medical Branch amLODIPine 2020-0 Yes 10mg Take 10 mg U nivers (NORVASC) 5-05 by mouth ity of 10 mg 13:44: daily. [place] tablet 30 Medical Branch lisinopril 2020-0 Yes 5mg Take 5 mg Un [facility] (ZESTRIL) 5 5-05 by mouth ity of mg tablet 13:44: daily. [place] [address] Medical Branch ISOSORBIDE 2020-0 Yes 30mg Take 30 mg U nivers ORAL 5-05 by mouth ity of 13:44: daily. [address] Branch clopidogrel 2020-0 Yes 75mg Take 75 mg Univers (PLAVIX) 75 5-05 by mouth ity of mg tablet 13:44: daily. [address] amLODIPine 2020-0 Yes 10mg Take 10 mg U nivers (NORVASC) 5-05 by mouth ity of 10 mg 13:44: daily. [place] [facility] 30 [facility] Branch lisinopril 2020-0 Yes 5mg Take 5 mg Un [facility] (ZESTRIL) 5 5-05 by mouth ity of mg tablet 13:44: daily. [address] Branch ISOSORBIDE 2020-0 Yes 30mg Take 30 mg U nivers ORAL 5-05 by mouth ity of 13:44: daily. [address] clopidogrel 2020-0 Yes 75mg Take 75 mg Univers (PLAVIX) 75 5-05 by mouth ity of mg tablet 13:44: daily. [address] amLODIPine 2020-0 Yes 10mg Take 10 mg U nivers (NORVASC) 5-05 by mouth ity of 10 mg 13:44: daily. [place] [facility] 30 [facility] Branch metoprolol 2020-0 Yes 25mg Take 25 mg U nivers tartrate 25 5-05 by mouth 2 it y of mg tablet 13:44: (two) [place] 29 times Medical daily. Branch ergocalcife 2020-0 Yes Take by Uni vers rol, 5-05 mouth. ity of vitamin D2, 13:44: [place] (VITAMIN D 29 Medical ORAL) Branch Metoprolol Metoprolol 2020-0 Yes Denny 1 capsule Common Succinate Succinate 2-05 Abdalla Spir it 00:00: - [facility] 00 [facility] Metoprolol Metoprolol 2019- Yes Denny 1 tablet Common Tartrate Tartrate 08-08 Abdalla with food S pirit 00:00: - [facility] 00 [facility] amLODIPine Yes 10mg Take 10 mg U nivers (NORVASC) 3-07 by mouth ity of 10 mg 18:54: daily. [place] [address] Medical [place] POTASSIUM Yes 2{tbl} Take 2 Univ ers GLUCONATE 3-07 Tabs by ity of ORAL 18:54: mouth 2 [place] [address] ([facility]) Medical times [place] daily. aspirin 81 Yes 81mg Take 81 mg U nivers mg tablet 3-07 by mouth ity of 18:54: daily. [address] POTASSIUM Yes 2{tbl} Take 2 Univ ers GLUCONATE 3-07 Tabs by ity of ORAL 18:54: mouth 2 [place] [address] ([facility]) Medical times [place] daily. aspirin 81 Yes 81mg Take 81 mg U nivers mg tablet 3-07 by mouth ity of 18:54: daily. [address] POTASSIUM Yes 2{tbl} Take 2 Univ ers GLUCONATE 3-07 Tabs by ity of ORAL 18:54: mouth 2 [place] [address] ([facility]) Medical times [place] daily. aspirin 81 Yes 81mg Take 81 mg U nivers mg tablet 3-07 by mouth ity of 18:54: daily. [address] POTASSIUM Yes 2{tbl} Take 2 Univ ers GLUCONATE 3-07 Tabs by ity of ORAL 18:54: mouth 2 [place] [address] ([facility]) Medical times [place] daily. aspirin 81 Yes 81mg Take 81 mg U nivers mg tablet 3-07 by mouth ity of 18:54: daily. [address] POTASSIUM Yes 2{tbl} Take 2 Univ ers GLUCONATE 3-07 Tabs by ity of ORAL 18:54: mouth 2 [place] [address] ([facility]) Medical times [place] daily. aspirin 81 Yes 81mg Take 81 mg U nivers mg tablet 3-07 by mouth ity of 18:54: daily. [address] ISOSORBIDE Yes 30mg Take 30 mg U nivers ORAL 3-07 by mouth ity of 18:54: daily. [address] clopidogrel Yes 75mg Take 75 mg Univers (PLAVIX) 75 3-07 by mouth ity of mg tablet 18:54: daily. [place] [address] Medical Branch atenolol 0 Yes 25mg Take 25 mg Uni vers (TENORMIN) 3-07 by mouth 2 ity of 25 mg 18:54: (two) [place] tablet 42 times Medical daily. Branch atenolol Yes 25mg Take 25 mg Uni vers (TENORMIN) 3-07 by mouth 2 ity of 25 mg 18:54: (two) [place] tablet 42 times Medical daily. Branch atenolol 0 Yes 25mg Take 25 mg [...] mouth ity of mg tablet 18:54: daily. [place] [address] Medical Branch Crestor Crestor Yes Denny 1 tablet Com mon Abdalla [facility] Meloxicam Meloxicam Yes Denny 1 tablet Common [facility]alla [facility] Aspir-81 Aspir-81 Yes Denny 1 tablet C ommon Abdalla [facility] Alendronate Alendronate Yes Denny 1 tablet Common Sodium Sodium Abdalla 30 minutes Spir it before the [facility] first [facility] beverage Medical or Center medicine of the day with plain water Xopenex Xopenex Yes Denny 3 ml [facility] Gabapentin Gabapentin Yes Denny 1 capsule [facility] Meloxicam Meloxicam Yes Denny TAKE 1 C ommon Abdalla TABLET Spirit EVERY DAY [facility] Metoprolol Metoprolol Yes Denny TAKE 1 Common Succinate Succinate Abdalla TABLET Sp luba ER ER EVERY DAY [facility] Alendronate Alendronate No Alendronat Sodium [...] 7.5 MG 7.5 MG Gabapentin Gabapentin No Gabapentin 300 MG 300 MG 300 MG Metoprolol Metoprolol No 1{capsu QD Metoprolol Succinate Succinate le} Succinate 50 MG 50 MG 50 MG Crestor 40 Crestor 40 No 1{table QD Crestor 40 MG MG t} MG Gabapentin Gabapentin No 1{capsu BID Gabapentin 300 MG 300 MG le} 300 MG Metoprolol Metoprolol No Metoprolol Succinate Succinate Succinate ER 50 MG ER 50 MG ER 50 MG Rosuvastati Rosuvastati No Rosuvastat n [...] QD Aspir-81 MG MG t} 81 MG traMADol traMADol No 1{table TID traMADol HCl 50 MG HCl 50 MG t_as_ne HCl 50 MG eded} Gabapentin Gabapentin No 1{capsu BID Gabapentin 300 [...] Time Observation Value Comments Source Systolic blood 2022-09-23 17:03:00 139 mm[Hg] Univer [facility]ity [facility] Diastolic blood 2022-09-23 17:03:00 79 mm[Hg] Unive rsity [facility] Heart rate 2022-09-23 17:03:00 120 /min Universi ty [facility] Body height 2022-09-23 17:03:00 [facility]4 [facility] weight 2022-09-23 17:03:00 43.001 kg Universi [facility] BMI 2022-09-23 17:03:00 18.51 kg/m2 [facility] Systolic blood 2022-08-13 17:05:00 155 mm[Hg] Univer sity [facility] Diastolic blood 2022-08-13 17:05:00 74 mm[facility]Hg] [facility] 2022-08-13 17:05:00 107 /min [facility] Body temperature 2022-08-13 17:05:00 36.78 [facility] Respiratory rate 2022-08-13 17:05:00 15 /min [facility] Oxygen saturation in 2022-08-13 17:05:00 99 /min [facility] Arterial blood by [facility] Pulse oximetry Branch Body weight 2022-08-04 15:00:00 43.5 kg Universi ty [facility] BMI 2022-08-04 15:00:00 17.54 kg/m2 Universi ty [facility] Body height 2022-07-27 16:36:00 157.5 cm [facility] Systolic blood 2022-08-05 23:00:00 155 mm[Hg] Univer sity of [facility] Diastolic blood 2022-08-05 23:00:00 70 mm[Hg] Unive rsity of pressure [facility] Respiratory rate 2022-08-05 23:00:00 18 /min [facility] in 2022-08-05 23:00:00 98 /min [facility] Arterial blood by [facility] Pulse oximetry Branch Body temperature 2022-08-05 22:53:00 35.72 [facility] rate 2022-08-05 22:50:00 72 /min Universi ty [facility] Body weight 2022-08-04 15:00:00 [facility]5 [facility] BMI 2022-08-04 15:00:00 17.54 kg/m2 [facility] Body height 2022-07-27 16:36:00 157.5 cm [facility] height 2022-06-25 08:40:00 60 [in_i] [facility] weight 2022-06-25 08:40:00 97.7 [lb_av] [facility] temperature 2022-06-25 08:40:00 97.3 [degF] [facility] bmi 2022-06-25 08:40:00 19.08 kg/m2 [facility] oximetry 2022-06-25 08:40:00 99 % [facility] respiratory rate 2022-06-25 08:40:00 18 /min [facility] blood pressure 2022-06-25 08:40:00 124 mm[Hg] [facility] blood pressure 2022-06-25 08:40:00 64 mm[Hg] [facility] height 2022-03-25 10:20:00 60 [in_i] Common [facility] weight 2022-03-25 10:20:00 99.8 [lb_av] [facility] temperature 2022-03-25 10:20:00 97.7 [degF] Common [facility] bmi 2022-03-25 10:20:00 19.49 kg/m2 [facility] oximetry 2022-03-25 10:20:00 99 % [facility] respiratory rate 2022-03-25 10:20:00 18 /min Comm on [facility] blood pressure 2022-03-25 10:20:00 130 mm[Hg] Common [facility] - systolic [facility] blood pressure 2022-03-25 10:20:00 73 mm[Hg] [facility] height 2021-12-24 10:50:00 60 [in_i] [facility] weight 2021-12-24 10:50:00 101.6 [lb_av] Common [facility] temperature 2021-12-24 10:50:00 97.6 [degF] [facility] bmi 2021-12-24 10:50:00 19.84 kg/m2 [facility] oximetry 2021-12-24 10:50:00 98 % Common S [facility] respiratory rate 2021-12-24 10:50:00 18 /min Comm on [facility] blood pressure 2021-12-24 10:50:00 135 mm[Hg] Common [facility] - systolic [facility] blood pressure 2021-12-24 10:50:00 79 mm[Hg] [facility] height 2021-11-12 09:20:00 60 [in_i] [facility] weight 2021-11-12 09:20:00 97.8 [lb_av] [facility] temperature 2021-11-12 09:20:00 98.2 [degF] [facility] bmi 2021-11-12 09:20:00 19.1 kg/m2 [facility] oximetry 2021-11-12 09:20:00 99 % [facility] - [facility] respiratory rate 2021-11-12 09:20:00 17 /min Comm on [facility] blood pressure 2021-11-12 09:20:00 138 mm[Hg] Common [facility] - systolic [facility] blood pressure 2021-11-12 09:20:00 76 mm[Hg] [facility] height 2021-11-12 09:20:00 60 [in_i] Common [facility] weight 2021-11-12 09:20:00 97.8 [lb_av] Common [facility] temperature 2021-11-12 09:20:00 98.2 [degF] Common [facility] bmi 2021-11-12 09:20:00 19.1 kg/m2 [facility] oximetry 2021-11-12 09:20:00 99 % [facility] respiratory rate 2021-11-12 09:20:00 17 /min Comm on [facility] blood pressure 2021-11-12 09:20:00 138 mm[Hg] Common [facility] - systolic [facility] blood pressure 2021-11-12 09:20:00 76 mm[Hg] Common [facility] - diastolic [facility] height 2021-08-31 10:00:00 60 [in_i] Common [facility] weight 2021-08-31 10:00:00 107.2 [lb_av] Common [facility] temperature 2021-08-31 10:00:00 96.2 [degF] [facility] bmi 2021-08-31 10:00:00 20.93 kg/m2 Common [facility] blood pressure 2021-08-31 10:00:00 115 mm[Hg] Common [facility] - systolic [facility] blood pressure 2021-08-31 10:00:00 63 mm[Hg] [facility] height 2021-04-28 14:10:00 60 [in_i] Common [facility] weight 2021-04-28 14:10:00 103.2 [lb_av] Common [facility] temperature 2021-04-28 14:10:00 96.8 [degF] Common [facility] bmi 2021-04-28 14:10:00 20.15 kg/m2 Common [facility] oximetry 2021-04-28 14:10:00 96 % Common [facility] respiratory rate 2021-04-28 14:10:00 18 /min Comm on [facility] blood pressure 2021-04-28 14:10:00 120 mm[Hg] Common [facility] - systolic [facility] blood pressure 2021-04-28 14:10:00 62 mm[Hg] Common [facility] - diastolic [facility] height 2021-04-28 14:00:00 60 [in_i] Common [facility] weight 2021-04-28 14:00:00 103.2 [lb_av] [facility] temperature 2021-04-28 14:00:00 96.8 [degF] Common [facility] bmi 2021-04-28 14:00:00 20.15 kg/m2 [facility] oximetry 2021-04-28 14:00:00 96 % Common [facility] respiratory rate 2021-04-28 14:00:00 18 /min Comm on [facility] blood pressure 2021-04-28 14:00:00 120 mm[Hg] Common [facility] - systolic [facility] blood pressure 2021-04-28 14:00:00 62 mm[Hg] Common [facility] - diastolic [facility] Systolic blood 2019-12-05 17:30:00 170 mm[Hg] Univer sity of pressure [facility] Diastolic blood 2019-12-05 17:30:00 66 mm[Hg] Unive rsity of pressure [facility] Heart rate 2019-12-05 17:30:00 64 /min [facility] Respiratory rate 2019-12-05 17:30:00 15 /min [facility] Oxygen saturation in 2019-12-05 17:30:00 97 /min [facility] Arterial blood by [facility] Pulse oximetry Branch Body temperature 2019-12-05 17:14:00 36.06 Gabbi [facility] Body height 2019-12-04 13:00:00 149.9 cm [facility] Body weight 2019-12-04 13:00:00 49.896 kg [facility] BMI 2019-12-04 13:00:00 22.22 kg/m2 [facility] Systolic blood 2019-12-05 17:30:00 170 mm[Hg] [facility] Diastolic blood 2019-12-05 17:30:00 66 mm[Hg] Unive [facility]ity [facility] Heart rate 2019-12-05 17:30:00 64 /min [facility] Respiratory rate 2019-12-05 17:30:00 15 /min [facility] Oxygen saturation in 2019-12-05 17:30:00 97 /min [facility] Arterial blood by [facility] Pulse oximetry Branch Body temperature 2019-12-05 17:14:00 36.06 Gabbi [facility] Body height 2019-12-04 13:00:00 149.9 cm [facility] Body weight 2019-12-04 13:00:00 49.896 kg [facility] BMI 2019-12-04 13:00:00 22.22 kg/m2 [facility] Respiratory rate 2019-12-05 17:09:00 15 /min [facility] Respiratory rate 2019-12-05 17:09:00 15 /min [facility] Systolic blood 2019-11-21 15:55:00 180 mm[Hg] [facility] Diastolic blood 2019-11-21 15:55:00 69 mm[Hg] Unive [facility]ity [facility] Heart rate 2019-11-21 15:55:00 60 /min [facility] Respiratory rate 2019-11-21 15:55:00 17 /min Univ ersity [facility] Oxygen saturation in 2019-11-21 15:55:00 98 /min [facility] Arterial blood by [facility] Pulse oximetry Branch Body temperature 2019-11-21 15:20:00 36.56 Gabbi [facility] ersity [facility] [place] Body height 2019-11-21 13:00:00 149.9 cm [facility] Body weight 2019-11-21 13:00:00 49.896 kg [facility] BMI 2019-11-21 13:00:00 22.22 kg/m2 [facility] Systolic blood 2019-11-21 15:55:00 180 mm[Hg] Univer sity of pressure [facility] Diastolic blood 2019-11-21 15:55:00 69 mm[Hg] [facility] Heart rate 2019-11-21 15:55:00 60 /min [facility] Respiratory rate 2019-11-21 15:55:00 17 /min [facility] Oxygen saturation in 2019-11-21 15:55:00 98 /min [facility] Arterial blood by [facility] Pulse oximetry Branch Body temperature 2019-11-21 15:20:00 36.56 Gabbi [facility] height 2019-11-21 13:00:00 149.9 cm [facility] Body weight 2019-11-21 13:00:00 49.896 kg [facility] BMI 2019-11-21 13:00:00 22.22 kg/m2 [facility] Procedures Procedure Date / Time Performing Clinician Source Performed HOME HEALTH - OTHER 2023-01-27 05:01:00 Doctor Unassigned, Unive [facility] PHYSICIAN ORDERS 2022-12-29 05:01:00 Doctor Unassigned, [facility] PHYSICIAN ORDERS 2022-12-15 05:01:00 Doctor Unassigned, [facility] EXTERNAL PROVIDER RECORDS 2022-11-17 05:01:00 Doctor Unassigned, [facility] EXTERNAL PROVIDER RECORDS 2022-10-21 05:01:00 Doctor Unassigned, [facility] HOME HEALTH - OTHER 2022-10-06 05:01:00 Doctor Unassigned, [facility] ASSIGNMENT OF BENEFITS 2022-09-23 16:12:32 Doctor Unassigned, [facility] Name Medical Branch COVID-19 (ID NOW RAPID 2022-08-13 16:23:00 Dayna [facility] TESTING) [facility] LAB ONLY COVID 2022-08-13 16:23:00 Dayna Mu-Ism [facility] INTERPRETATION [facility] BASIC METABOLIC PANEL (NA, 2022-08-13 10:09:00 Victor M Brannon [facility] K, CL, CO2, GLUCOSE, BUN, Dennis [facility] CREATININE, CA) CBC WITH DIFF 2022-08-13 10:09:00 Salud [facility] BASIC METABOLIC PANEL (NA, 2022-08-12 17:37:00 Gaurav Dan [facility] K, CL, CO2, GLUCOSE, BUN, Medica l Branch CREATININE, CA) MAGNESIUM 2022-08-11 11:16:00 Salud [facility] BASIC METABOLIC PANEL (NA, 2022-08-11 11:16:00 Victor M Brannon [facility] K, CL, CO2, GLUCOSE, BUN, [facility] CREATININE, CA) CBC WITH DIFF 2022-08-11 11:16:00 Salud [facility] MAGNESIUM 2022-08-08 09:44:00 Salud [facility] BASIC METABOLIC PANEL (NA, 2022-08-08 09:44:00 Victor M Brannon [facility] K, CL, CO2, GLUCOSE, BUN, [facility] CREATININE, CA) CBC WITH DIFF 2022-08-08 09:44:00 Salud [facility] XR CERVICAL SPINE 2 VW 2022-08-07 02:58:21 Mandi Marshall [facility] 2022-08-06 10:07:00 Salud [facility] BASIC METABOLIC PANEL (NA, 2022-08-06 10:07:00 Brannon [facility] K, CL, CO2, GLUCOSE, BUN, Dennis Medica [facility] CREATININE, CA) CBC WITH DIFF 2022-08-06 10:07:00 Brannon [facility] MAGNESIUM 2022-08-06 10:07:00 [facility] BASIC METABOLIC PANEL (NA, 2022-08-06 10:07:[address] [facility] K, CL, CO2, GLUCOSE, BUN, Dennis Medica [facility] CREATININE, CA) CBC WITH DIFF 2022-08-06 10:07:00 [facility] [place] [facility] 2022-08-05 22:51:31 Joanna [facility] [place] TIME OR 2022-08-05 22:51:31 Joanna [facility]RE[facility] ABG+COOX+NA+K+GLU+CA2+ 2022-08-05 20:39:00 [facility]+COOX+NA+K+GLU+CA2+ 2022-08-05 20:39:00 Lisa [facility] XR CERVICAL SPINE 1 VW 2022-08-05 20:23:27 Mandi Marshall [facility] FUSION SPINE POSTERIOR 2022-08-05 18:08:00 [facility]i [facility] CERVICAL AND DISCECTOMY [facility] FUSION SPINE POSTERIOR 2022-08-05 18:08:00 Pati [facility] CERVICAL AND DISCECTOMY [facility] HB ECG ROUTINE & RHYTHM 2022-08-05 13:47:54 Dayna Mu-Ism [facility] HB ABO GROUPING 2022-08-05 10:42:00 Ni [facility] HB ABO GROUPING 2022-08-05 10:42:00 Ni [facility] BASIC METABOLIC PANEL (NA, 2022-08-05 10:35:00 Gaurav Dan [facility] K, CL, CO2, GLUCOSE, BUN, Medica l Branch CREATININE, CA) CBC WITH DIFF 2022-08-05 10:35:00 Ni [facility] PROTHROMBIN TIME / INR 2022-08-05 10:35:00 Ni [facility] ACTIVATED PARTIAL THRMPLAS 2022-08-05 10:35:00 Brent Mcintosh [facility] BASIC METABOLIC PANEL (NA, 2022-08-05 10:35:00 Gaurav Dan [facility] K, CL, CO2, GLUCOSE, BUN, Medica l Branch CREATININE, CA) CBC WITH DIFF 2022-08-05 10:35:00 Ni [facility] PROTHROMBIN TIME / INR 2022-08-05 10:35:00 Ni [facility] ACTIVATED PARTIAL THRMPLAS 2022-08-05 10:35:00 Brent Mcintosh [facility] XR CHEST 1 VW 2022-08-04 20:17:23 Ni [facility] XR CHEST 1 VW 2022-08-04 20:17:23 Ni, [facility] MAGNESIUM 2022-08-04 10:41:00 Salud [facility] BASIC METABOLIC PANEL (NA, 2022-08-04 10:41:00 Victor M Brannon [facility] K, CL, CO2, GLUCOSE, BUN, [facility] CREATININE, CA) CBC WITH DIFF 2022-08-04 10:41:00 Salud [facility] MAGNESIUM 2022-08-04 10:41:00 Salud [facility] BASIC METABOLIC PANEL (NA, 2022-08-04 10:41:00 Victor M Brannon [facility] K, CL, CO2, GLUCOSE, BUN, [facility] CREATININE, CA) CBC WITH DIFF 2022-08-04 10:41:00 Salud [facility] MAGNESIUM 2022-08-02 09:26:[address] [facility] BASIC METABOLIC PANEL (NA, 2022-08-02 09:26:00 Victor M Brannon [facility] K, CL, CO2, GLUCOSE, BUN, Dennis [facility] CREATININE, CA) CBC WITH DIFF 2022-08-02 09:26:[address] [facility] MAGNESIUM 2022-08-02 09:26:00 Salud [facility] BASIC METABOLIC PANEL (NA, 2022-08-02 09:26:00 Victor M Brannon [facility] K, CL, CO2, GLUCOSE, BUN, [facility] CREATININE, CA) CBC WITH DIFF 2022-08-02 09:26:[address] [facility] 2022-07-30 16:08:00 [facility] 2022-07-30 16:08:00 Micky Veliz [facility] TRANSTHORACIC ECHO (TTE) 2022-07-29 19:55:23 Salud [facility] COMPLETE W/ CONTRAST [facility] TRANSTHORACIC ECHO (TTE) 2022-07-29 19:55:23 Salud [facility] COMPLETE W/ CONTRAST [facility] NM MYOCARDIUM PERFUSION 2022-07-29 16:50:00 Tressa Suarez [facility] STRESS ONLY [facility] NM MYOCARDIUM PERFUSION 2022-07-29 16:50:00 Tressa Suarez [facility] STRESS ONLY [facility] ECG ROUTINE & RHYTHM 2022-07-29 14:45:19 Micky Veliz [facility] HB ECG ROUTINE & RHYTHM 2022-07-29 14:45:19 Micky Veliz [facility] ABORH CONFIRMATION (LAB 2022-07-29 11:35:00 Sd Brannon [facility] ONLY) [facility] ABORH CONFIRMATION (LAB 2022-07-29 11:35:00 Sd Brannon [facility] ONLY) [facility] HB ABO GROUPING 2022-07-29 11:15:00 Salud [facility] HB ABO GROUPING 2022-07-29 11:15:00 Salud [facility] MAGNESIUM 2022-07-29 10:10:00 Salud [facility] BASIC METABOLIC PANEL (NA, 2022-07-29 10:10:[address] [facility] K, CL, CO2, GLUCOSE, BUN, [facility] CREATININE, CA) CBC WITH DIFF 2022-07-29 10:10:00 Salud [facility] MAGNESIUM 2022-07-29 10:10:00 Salud [facility] BASIC METABOLIC PANEL (NA, 2022-07-29 10:10:00 [facility], CL, CO2, GLUCOSE, BUN, [facility] CREATININE, CA) CBC WITH DIFF 2022-07-29 10:10:00 Salud [facility] CT HEAD WO CONTRAST 2022-07-29 02:51:00 Joanna Mandi [facility] CT HEAD WO CONTRAST 2022-07-29 02:51:00 Joanna Mandi [facility] BASIC METABOLIC PANEL (NA, 2022-07-28 04:55:00 [facility], CO2, GLUCOSE, BUN, Medica l Branch CREATININE, CA) BASIC METABOLIC PANEL (NA, 2022-07-28 04:55:00 [facility], CL, CO2, GLUCOSE, BUN, Medica l Branch CREATININE, CA) PROTHROMBIN TIME / INR 2022-07-28 03:46:00 Weston Arreguin [facility] ACTIVATED PARTIAL THRMPLAS 2022-07-28 03:46:00 Weston Arreguin [facility] PROTHROMBIN TIME / INR 2022-07-28 03:46:00 Weston Arreguin [facility] ACTIVATED PARTIAL THRMPLAS 2022-07-28 03:46:00 [facility] [place] [facility] LIPASE 2022-07-27 23:29:00 Marlyn Cedeno [facility] CBC WITH DIFF 2022-07-27 23:29:00 Marlyn Cedeno [facility] LIPASE 2022-07-27 23:29:00 Marlyn Cedeno [facility] CBC WITH DIFF 2022-07-27 23:29:00 Marlyn Cedeno [facility] MR CERVICAL SPINE WO 2022-07-27 21:07:00 Marlyn Cedeno [facility] [place] [facility] MR CERVICAL SPINE WO 2022-07-27 21:07:00 Marlyn Cedeno [facility] [place] [facility] CT CERVICAL SPINE WO 2022-07-27 17:59:14 Marlyn Cedeno F [facility] [place] [facility] CT CERVICAL SPINE WO 2022-07-27 17:59:14 Marlyn Cedeno F [facility] [place] [facility] CONSENT/REFUSAL FOR 2022-07-27 16:28:45 Doctor [facility]igned[facility] [place] [facility] CONSENT/REFUSAL FOR 2022-07-27 16:28:45 Doctor Unassigned, Unive [facility] [place] [facility] HOSPITAL ADMISSION 2022-07-27 06:01:00 Doctor Unassigned, [facility] [facility] HOSPITAL ADMISSION 2022-07-27 06:01:00 Doctor Unassigned, [facility] CONSENT/REFUSAL FOR 2019-12-04 13:54:31 Doctor Unassigned, [facility]ive [facility] [place] [facility] ASSIGNMENT OF BENEFITS 2019-12-04 13:54:12 Doctor Unassigned, [facility] [place] [facility] CBC WITH DIFFERENTIAL 2019-11-16 15:49:00 Greyson Marte [facility] CONSENT/REFUSAL FOR 2019-11-16 15:25:37 Doctor Unassigned, [facility]ive [facility] [place] [facility] ASSIGNMENT OF BENEFITS 2019-11-16 15:25:15 Doctor Unassigned, [facility] [place] [facility] NOTICE OF BILLING 2019-11-16 15:24:47 Doctor Unassigned, [facility] PRACTICES FOR MEDICARE [place] [facility] PATIENTS [facility] PATIENT FINANCIAL 2019-11-16 15:24:28 Doctor [facility]igned, [facility] POLIC[facility] NO SHOW OR MISSED 2019-11-16 15:24:05 Doctor Unassigned, [facility] APPOINTMENT POLICY [facility] ACKNOWLEDGEMENT NOTICE OF PRIVACY 2019-11-16 15:23:43 Doctor Unassigned, [facility] PRACTICES [facility] CONSENT/REFUSAL FOR 2019-11-16 15:23:22 Doctor Unassigned, [facility] DIAGNOSIS AND TREATMENT [facility] ASSIGNMENT OF BENEFITS 2019-11-16 15:22:59 Doctor [facility]igned, [facility] Encounters Start End Encounter Admission Attending Care Care Encounter Source Date/Time Date/Time Type Type Clinicians Facility Department ID 2022-09-30 Outpatient Abdalla, STLMLC STLMLC [id number] Common 14:28:00 Denny [id number] [facility] 2022-07-30 Inpatient R LISA BATISTA [facility] SNS [id number] Univers 13:18:49 LISA BATISTA i [facility] 2022-06-26 Outpatient Abdalla, STLMLC STLMLC [id number] Common 06:48:01 Denny [id number] [facility] 2022-06-23 Outpatient Abdalla, STLMLC STLMLC [id number] Common 08:53:00 Denny [facility] 2022-03-26 Outpatient Abdalla, STLMLC STLMLC [id number] Common 08:26:00 Denny [facility] 2022-03-25 Outpatient Abdalla, STLMLC STLMLC [id number] Common 10:11:00 Denny [id number] [facility] 2022-03-24 Outpatient Abdalla, STLMLC STLMLC [id number] Common 10:15:07 Denny [id number] [facility] 2022-01-25 Outpatient Abdalla, STLMLC STLMLC [id number] Common 13:50:00 Denny [facility] 2021-12-25 Outpatient Abdalla, STLMLC STLMLC [id number] Common 07:27:00 Denny [facility] 2021-11-13 Outpatient Abdalla, STLMLC STLMLC [id number] Common 08:45:02 Denny [facility] 2021-11-09 Outpatient Abdalla, STLMLC STLMLC [id number] Common 13:41:00 Denny [facility] 2021-09-29 Outpatient Abdalla, STLMLC STLMLC [id number] Common 15:38:00 Denny [facility] 2021-08-12 Outpatient Abdalla, STLMLC STLMLC [id number] Common 14:21:27 Denny [id number] [facility] 2021-08-12 Outpatient Abdalla, STLMLC STLMLC [id number] Common 14:00:42 Denny [id number] [facility] 2021-08-12 Outpatient Abdlala, STLMLC STLMLC [id number] Common 13:24:30 Denny [id number] [facility] 2021-08-12 Outpatient Abdalla, STLMLC STLMLC [id number] Common 12:41:17 Denny [id number] [facility] 2021-08-12 Outpatient Abdalla, STLMLC STLMLC [id number] Common 11:53:12 Denny [id number] [facility] 2021-08-12 Outpatient Abdalla, STLMLC STLMLC [id number] Common 11:50:53 Denny [id number] [facility] 2021-08-12 Outpatient Abdalla, STLMLC STLMLC [id number] Common 11:29:14 Denny [id number] [facility] 2021-08-12 Outpatient Abdalla, STLMLC STLMLC [id number] Common 11:27:37 Denny [id number] [facility] 2021-08-12 Outpatient Abdalla, STLMLC [facility] [id number] Common 11:18:10 [facility] [id number] [facility] 2021-08-12 [facility] [id number] Common 11:03:30 [facility] [id number] [facility] 2021-08-12 Outpatient Ariane Thomas [facility] [id number] Common 11:02:51 [id number] [facility] 2021-05-14 Outpatient TERESA [facility] [id number] Univers 21:11:39 [facility] 2021-05-14 Outpatient R [facility] AYESHA [id number] Univers 19:37:31 GREYSON [facility] 2023-02-08 2023-02-08 Outpatient PATI MOELLER [facility] [id number] Univers 10:00:00 10:00:00 PATI MARTIN [facility] 2023-01-27 2023-01-27 Orders Doctor DADA [id number] Univers 00:00:00 00:00:00 Only Unassigned, MADDISON [id number] [facility] [place] [facility] [id number] Chas as [id number] [address] 2023-01-24 2023-01-24 Outpatient Jane BRADLEY [facility] [id number] Univers 00:00:00 00:00:00 SHERIDAN [facility] 2023-01-06 2023-01-06 Outpatient Jane BRADLEY [facility] [id number] Univers 00:00:00 00:00:00 SHERIDAN tolentino [facility] 2023-01-04 2023-01-04 Outpatient PATI MOELLER [facility] [id number] Univers 10:40:00 10:40:00 PATI MARTIN [facility] 2022-12-29 2022-12-29 Orders Doctor DADA [id number] Univers 00:00:00 00:00:00 Only UnassignedMADDISON [id number] [facility] [place] [facility] [id number] Chas as [id number] [address] 2022-12-24 2022-12-24 Outpatient Jane BRADLEY [facility] [id number] Univers 00:00:00 00:00:00 SHERIDAN ity of [facility] 2022-12-15 2022-12-15 Orders Doctor DADA [id number] Univers 00:00:00 00:00:00 Only Unassigned, MADDISON [id number] [facility] [place] [facility] [id number] Chas as [id number] [address] 2022-11-18 2022-11-18 Telephone Rafa [facility] [id number] Univers 00:00:00 00:00:00 Pati HEALTH 350.1.13.10 [place] [phone] [address] OFFICE [facility] 2022-11-17 2022-11-17 Orders Doctor GARLAND 1.2.840.114 [id number] Univers 00:00:00 00:00:00 Only Unassigned, MADDISON 350.1.13.10 ity of [place] [facility] 4.2.7.2.686 Chas as [phone] [address] 2022-10-21 2022-10-21 Orders Doctor GARLAND 1.2.840.114 [id number] Univers 00:00:00 00:00:00 Only Unassigned, MADDISON 350.1.13.10 ity of [place] [facility] 4.2.7.2.686 Chas [place] [phone] [address] 2022-10-12 2022-10-12 Telephone Rafa [facility] 1.2.203.224 [id number] Univers 00:00:00 00:00:00 Pati HEALTH 350.1.13.10 [place] [phone] [address] OFFICE BUILDING 2022-10-06 2022-10-06 Orders Doctor DADA Kam2.840.114 [id number] Univers 00:00:00 00:00:00 Only Unassigned, MADDISON 350.1.13.10 ity of [place] [facility] 4.2.7.2.686 Chas as [phone] [address] 2022-09-29 2022-09-29 Outpatient Jane BRADLEY [facility] [id number] Univers 00:00:00 00:00:00 SHERIDAN itrosina [facility] 2022-09-23 2022-09-23 [facility] [id number] Univers 11:40:00 23:59:00 SHERIDAN ity [facility] 2022-09-23 2022-09-23 [facility] 1.2.840.114 [id number] Univers 11:40:00 23:59:00 Encounter Sheridan Foley HEALTH 350.1.13.10 [place] [phone] [facility] [address] ([facility]) 2022-09-23 2022-09-23 Office Rafa [facility] 1.2.840.114 [id number] Univers 10:40:00 11:00:00 Visit Pati [facility] 350.1.13.10 it [place] [phone] [address] OFFICE BUILDING 2022-09-23 2022-09-23 Orders Doctor DADA 1.2.840.114 [id number] Univers 00:00:00 00:00:00 Only Unassigned, MADDISON 350.1.13.10 ity of [place] [facility] 4.2.7.2.686 [place] [phone] [address] 2022-09-17 2022-09-17 Telephone Rafa [facility] 1.2.299.416 [id number] Univers 00:00:00 00:00:00 Pati HEALTH 350.1.13.10 [place] [id number] [address] OFFICE BUILDING 2022-09-09 2022-09-09 Patient Sara CTVELIA 1.2.840.114 [id number] Univers 00:00:00 00:00:00 Outreach Elizabet Rios HEALTH 350.1.13.10 [place] [id number] [address] OFFICE [facility] 2022-09-09 2022-09-09 Patient CHELSEY Ruiz 1.2.840.114 [id number] Univers 00:00:00 00:00:00 Outreach Elizabet Ibrahim HEALTH 350.1.13.10 [place] [phone] [address] 2022-09-09 2022-09-09 Telephone Rafa [facility] 1.2.685.306 [id number] Univers 00:00:00 00:00:00 Pati HEALTH 350.1.13.10 [place] [id number] [address] OFFICE [facility] 2022-09-09 2022-09-09 Telephone Rafa [facility] 1.2.635.171 [id number] Univers 00:00:00 00:00:00 Pati [facility] 350.1.13.10 it [place] [id number] [address] OFFICE [facility] 2022-09-06 2022-09-06 Telephone Rafa [facility] 1.2.882.218 [id number] Univers 00:00:00 00:00:00 Pati [facility] 350.1.13.10 [place] [id number] [address] OFFICE [facility] 2022-09-03 2022-09-03 Outpatient R PATI MARTIN [facility] [id number] Univers 15:30:00 15:30:00 PATI MARTIN [facility] 2022-08-20 2022-08-20 (TEL) STLC STLC [id number] Co mmon 00:00:00 00:00:00 [facility] 2022-07-27 2022-08-13 Outpatient X PATI MARTIN [facility] [id number] Univers 10:38:00 17:54:00 PATI MARTIN [facility] 2022-07-27 2022-08-13 Emergency Marlyn Cedeno 1.2. 840.114 [id number] Univers 10:38:00 17:54:00 Dwight Charles 350.1.13.10 [facility] 4.2.7.2.686 [place] Pati Martin [phone] [place] [address] [address] 2022-08-13 2022-08-13 Ambulatory MHIE MNA [id number] Memoria 14:15:00 14:15:00 Pre-Reg Neurology l Kaylen Lunaann 2022-08-13 2022-08-13 Ambulatory MHIE MNA [id number] Memoria 14:15:00 14:15:00 Pre-Reg Neurology 01 l [place] 2022-08-13 2022-08-13 Outpatient YAMILKA Abdalla [id number] 08:15:00 08:15:00 Luis E [address] [place] [address] 2022-08-13 2022-08-[address] [facility] 1.2.840.114 [id number] Univers 00:00:00 00:00:00 [facility] 350.1.13.10 [facility] [place]2.[place].2.[place] [id number] [facility] [address] 2022-08-05 2022-08-05 Surgery LYNDSEY Martin 1.2.840.114 [id number] Univers 12:00:00 17:00:00 Pati [place] 350.1.13.10 it [facility] 4.2.7.2.686 Chas as [phone] [facility] [address] 2022-08-03 2022-08-03 Ambulatory MHIE MNA [id number] Memoria 21:45:00 21:45:00 Pre-Reg Neurology 00 l Kaylen Lunaann 2022-08-03 2022-08-03 Ambulatory MHIE MNA [id number] Memoria 21:45:00 21:45:00 Pre-Reg Neurology 00 l [place] 2022-08-03 2022-08-03 Outpatient MHIE MHIE [id number] Memoria 15:45:00 15:45:00 00 paramjit Bose 2022-08-03 2022-08-03 Outpatient DAV[facility] [id number] 15:45:00 15:45:00 Luis E 00 [place] 2022-07-27 2022-07-28 Outpatient MHIE MNA [id number] Memoria 14:15:00 05:59:59 Neurology 02 paramjit Bose 2022-07-27 2022-07-28 Outpatient MHIE MNA [id number] Memoria 14:15:00 05:59:59 Neurology 02 paramjit Bose 2022-07-27 2022-07-27 Outpatient MICHELE AbdallaWYSCHER [facility] [id number] 08:15:00 23:59:59 Luis E 02 [place] 2022-07-27 2022-07-27 Outpatient MHIE MHIE [id number] Memoria 08:15:00 08:15:00 02 paramjit Bose 2022-07-21 2022-07-21 (TEL) STLMLC STLMLC [id number] Co mmon 00:00:00 00:00:00 [facility] 2022-07-16 2022-07-16 Ambulatory MHIE MNA [id number] Memoria 14:15:00 14:15:00 Pre-Reg Neurology 03 paramjit Bose 2022-07-16 2022-07-16 Ambulatory MHIE MNA [id number] Memoria 14:15:00 14:15:00 Pre-Reg Neurology 03 paramjit Bose 2022-07-16 2022-07-16 Outpatient MHIE MHIE [id number] Memoria 08:15:00 08:15:00 03 paramjit Bose 2022-07-16 2022-07-16 Outpatient DAVION [facility]SCH[facility] [id number] 08:15:00 08:15:00 Luis E 03 [place] 2022-07-08 2022-07-08 Outpatient MHIE MHIE [id number] Memoria 15:45:00 15:45:00 01 paramjit Bose 2022-07-07 2022-07-07 (TEL) STLMLC STLMLC [id number] Co mmon 00:00:00 00:00:00 Spirit - [facility] 2022-06-25 2022-06-25 OFFICE STLMLC STLMLC [id number] Co mmon 00:00:00 00:00:00 VISIT Spirit ESTAB PT - CHI LEVEL 4 [facility] 2022-06-23 2022-06-23 (TEL) STLMLC STLMLC [id number] Co mmon 00:00:00 00:00:00 [facility] - [facility] 2022-03-25 2022-03-25 OFFICE STLMLC STLMLC [id number] Co mmon 00:00:00 00:00:00 VISIT Spirit ESTAB PT - CHI LEVEL 4 [facility] 2022-02-15 2022-02-15 Outpatient DICLEMENTE_ [facility] [place]16 [place] 00:00:00 00:00:00 ANANDA 0801 da [facility] 2021-12-24 2021-12-24 OFFICE STLMLC STLMLC [id number] Co mmon 00:00:00 00:00:00 VISIT Spirit ESTAB PT - CHI LEVEL 4 [facility] 2021-11-12 2021-11-12 OFFICE STLMLC STLMLC [id number] Co mmon 00:00:00 00:00:00 VISIT EST Spir it PT LEVEL 3 - CHI [facility] 2021-11-12 2021-11-12 SUB ANNUAL STLMLC STLMLC [id number] Common 00:00:00 00:00:00 MCR Spirit WELLNESS - CHI VISIT [facility] 2021-09-29 2021-09-29 (TEL) STLMLC STLMLC [id number] Co mmon 00:00:00 00:00:00 Spirit - [facility] 2021-09-25 2021-09-25 (TEL) STLMLC STLMLC [id number] Co mmon 00:00:00 00:00:00 Spirit - [facility] 2021-09-11 2021-09-11 (TEL) STLMLC STLMLC [id number] Co mmon 00:00:00 00:00:00 [facility] 2021-09-02 2021-09-02 (TEL) STLMLC STLMLC [id number] Co mmon 00:00:00 00:00:00 [facility] 2021-08-31 2021-08-31 OFFICE STLMLC STLMLC [id number] Co mmon 00:00:00 00:00:00 VISIT EST Spir it PT LEVEL 3 - CHI [facility] 2021-04-28 2021-04-28 (TEL) STLMLC STLMLC [id number] Co mmon 00:00:00 00:00:00 [facility] 2021-04-28 2021-04-28 OFFICE STLMLC STLMLC [id number] Co mmon 00:00:00 00:00:00 VISIT Spirit [facility] PT - [facility] LEVEL 4 [facility] 2021-04-28 2021-04-28 (TEL) STLMLC STLMLC [id number] Co mmon 00:00:00 00:00:00 [facility] 2021-04-28 2021-04-28 SUB ANNUAL STLMLC STLMLC [id number] Common 00:00:00 00:00:00 MCR [facility] 2021-01-26 2021-01-26 Outpatient STLMLC STLMLC [id number] Common 00:00:00 00:00:00 [facility] 2021-01-13 2021-01-13 Outpatient STLMLC STLMLC [id number] Common 00:00:00 00:00:00 [facility] 2020-10-27 2020-10-27 Outpatient STLMLC STLMLC [id number] Common 00:00:00 00:00:00 [facility] 2020-10-02 2020-10-02 Outpatient STLMLC STLMLC [id number] Common 00:00:00 00:00:00 [facility] 2020-09-30 2020-09-30 Outpatient STLMLC STLMLC [id number] Common 00:00:00 00:00:00 [facility] 2020-09-28 2020-09-28 Outpatient STLMLC STLMLC [id number] Common 00:00:00 00:00:00 [facility] 2020-07-30 2020-07-30 Outpatient STLMLC STLMLC [id number] Common 00:00:00 00:00:00 [facility] 2020-07-28 2020-07-28 Outpatient STLMLC STLMLC [id number] Common 00:00:00 00:00:00 [facility] 2020-05-06 2020-05-06 Outpatient STLMLC STLMLC [id number] Common 00:00:00 00:00:00 [facility] 2020-04-24 2020-04-24 Outpatient STLMLC STLMLC [id number] Common 00:00:00 00:00:00 [facility] 2020-04-24 2020-04-24 Outpatient STLMLC STLMLC [id number] Common 00:00:00 00:00:00 [facility] 2020-04-17 2020-04-17 Outpatient STLMLC STLMLC [id number] Common 00:00:00 00:00:00 [facility] 2020-01-16 2020-01-16 Outpatient [facility] [id number] Common 08:45:00 08:45:00 [place] [facility] 2019-12-05 2019-12-05 [facility] 1.2.148.629 [id number] 10:22:39 13:03:00 Encounter Greyson Ulloa 350.1.13.10 [place] 4.2.7.2.686 Surgical [id number] [place] [address] 2019-12-05 2019-12-05 [facility] 1.2.957.450 [id number] [facility] 10:22:39 13:03:00 Encounter Greyson Ulloa 350.1.13.10 [place] [id number] [place] [address] [place] 2019-12-05 2019-12-05 Anesthesia Nidia Nolasco [facility] 1.2.840 .114 [id number] 11:44:00 12:10:00 Prabhakar Sandoval Dun[place] 350.1.13.10 [place] 4.2.7.2.686 Surgical [id number] [place] 020 2019-12-05 2019-12-05 Anesthesia Nidia Nolasco [facility] 1.2.840 .114 [id number] Univers 11:44:00 12:10:00 Prabhakar Sandovalton 350.1.13.10 ity of [place] [id number] [address] 2019-12-04 2019-12-04 Laboratory Only, [facility] 1.2.840.114 [id number] 08:03:07 08:18:07 Only Test Dun[place] 350.1.13.10 [place] 4.2.7.2.686 Professio [id number] [address] 2019-12-04 2019-12-04 Laboratory Only, [facility] Test [facility] 1.2.840. 114 [id number] Univers 08:03:07 08:18:07 Only Greyson Marte 350.1.13.1 0 ity of [place] Profess[place] [phone] Al dical [address] 2019-12-04 2019-12-04 [facility] [id number] Univers 08:15:00 08:15:00 GREYSON ity [facility] 2019-11-21 2019-11-21 [facility] 1.2.813.978 [id number] 07:48:00 11:30:00 Encounter Greyson Ulloa 350.1.13.10 [place] 4.2.7.2.686 Surgical [id number] [place] [address] 2019-11-21 2019-11-21 [facility] 1.2.695.956 [id number] Univers 07:48:00 11:30:00 Encounter Greyson Ulloa 350.1.13.10 it[place] of [place] [id number] [address] 2019-11-20 2019-11-20 Outpatient R [facility] [id number] Univers 09:30:00 09:30:00 ity of [facility] 2019-11-20 2019-11-20 Laboratory Nurse, [facility] 1.2.840.114 [id number] 08:56:58 09:07:43 Only General [place] 350.1.13.10 Surgery [place] 4.2.7.2.686 Professio [id number] [address] 2019-11-20 2019-11-20 Laboratory Nurse, [facility] General Surgery [facility] 1.2.840.114 [id number] Univers 08:56:58 09:07:43 Only Greyson Marte Laila 350.1.13.1 0 ity of [place]2.[place] [phone] Al dical [facility] [address] [facility] 2019-11-20 2019-11-20 Telephone [facility] 1.2.840.114 [id number] 00:00:00 00:00:00 Greyson Alyx Dunbar 350.1.13.10 [place] 4.2.7.2.686 Surgical [id number] [place] [address] 2019-11-20 2019-11-20 Telephone [facility] 1.2.840.114 [id number] [facility] 00:00:00 00:00:00 Greyson Alyx ArechigaDunbar 350.1.13.10 ity of [place].2.[place] [id number] [address] 2019-11-16 2019-11-16 Mobile Application Tester Alonzo, [facility] Lab Main [facility] 1.2.8 40.114 [id number] Univers 10:33:59 10:48:59 Visit Greyson Marte 350.1.13.1 0 ity of [place] 4[place].2.[place] Profess[place] [phone] [facility] [address] [facility] 2019-11-16 2019-11-16 Outpatient R TERESA [facility] [id number] Univers 10:45:00 10:45:00 GREYSON tolentino [facility] 2019-11-12 2019-11-12 Outpatient [facility] [id number] Common 15:30:00 15:30:00 [facility] 2019-08-20 2019-08-20 Outpatient [facility] [id number] Common 14:48:00 14:48:[address] [facility] 2019-08-13 2019-08-13 Outpatient [facility] [id number] Common 15:30:00 15:30:[address] [facility] 2016-07-22 2016-07-22 Outpatient Marcia MMG MMG [id number] [place] 10:45:00 10:45:00 0105 [facility] Results Test Description Test Time Test Comments Results Result Comments Source CBC WITH DIFF 2022-08-11 11:59:04 Test Item Value Reference Range Interpretation Comme nts WBC (test code = 6690-2) See_Comment H [A utomated message] The system which ge nerated this result transmit radha reference range: 4.30 - 1 1.10 10*3/?L. The reference r angela was not used to interpr et this result as normal/abnor mal. RBC (test code = 789-8) See_Comment L [Au tomated message] The system which ge nerated this result transmit radha reference range: 3.93 - 5 .25 10*6/?L. The reference r angela was not used to interpr et this result as normal/abnor mal. HGB (test code = 718-7) 9.7 g/dL 11.6-15.0 L HCT (test code = 4544-3) 28.7 % 35.7-45.2 L MCV (test code = 787-2) 92.3 fL 80.6-95.5 MCH (test code = 785-6) 31.2 pg 25.9-32.8 MCHC (test code = 786-4) 33.8 g/dL 31.6-35.1 RDW-SD (test code = 02689-7) 42.8 fL 39.0-49.9 RDW-CV (test code = 788-0) 12.9 % 12.0-15.5 PLT (test code = 777-3) See_Comment [Au tomated message] The system which ge nerated this result transmit radha reference range: 166 - 35 8 10*3/?L. The reference range was not used to interpret th is result as normal/abnormal . MPV (test code = 36424-2) 10.6 fL 9.5-12.9 NRBC/100 WBC (test code = See_Comment [ Automated message] The 6542690461) system which ge nerated this result transmit radha reference range: 0.0 - 10 .0 /100 WBCs. The reference r angela was not used to interpr et this result as normal/abnor mal. NRBC x10^3 (test code = See_Comment [Au tomated message] The 5721530175) system which ge nerated this result transmit ardha reference range: 10*3/?L. The reference range was not u sed to interpret this result as normal/abnormal . GRAN MAT (NEUT) % (test code 62.4 % = 770-8) IMM GRAN % (test code = 0.50 % 0457054802) LYMPH % (test code = 736-9) 18.5 % MONO % (test code = 5905-5) 15.7 % EOS % (test code = 713-8) 2.3 % BASO % (test code = 706-2) 0.6 % GRAN MAT x10^3(ANC) (test 7.94 10*3/uL 1.88-7.09 H code = 4607711661) IMM GRAN x10^3 (test code = 0.06 10*3/uL 0.00-0.06 8312649805) LYMPH x10^3 (test code = 2.35 10*3/uL 1.32-3.29 731-0) MONO x10^3 (test code = 1.99 10*3/uL 0.33-0.92 H 742-7) EOS x10^3 (test code = 0.29 10*3/uL 0.03-0.39 711-2) BASO x10^3 (test code = 0.07 10*3/uL 0.01-0.07 704-7) REACT LYMPHS (test code = Rare 4082085434) Lab Interpretation (test Abnormal code = 28769-6) [facility] METABOLIC PANEL (NA, K, CL, CO2, GLUCOSE, BUN, CREATININE, CA)2022-08-11 11:57:57 Test Item Value Reference Range Interpretation Comments NA (test code = 128 mmol/L 135-145 L 9173489617) K (test code = 3.4 mmol/L 3.5-5.0 L 1571070162) CL (test code = 91 mmol/L 98-108 L 1037633882) CO2 TOTAL (test code = 31 mmol/L 23-31 6168293460) AGAP (test code = 2-16 4855641106) BUN (test code = 10 mg/dL 7-23 5757110536) GLUCOSE (test code = 92 mg/dL 70-110 5509856605) CREATININE (test code = 0.55 mg/dL 0.50-1.04 5153420016) CALCIUM (test code = 8.7 mg/dL 8.6-10.6 4155593463) eGFR (test code = mL/min/1.73m2 6762459940) MIKEY (test code = MIKEY) Association of Glomerular Filtration Rate (GFR) and Staging of Kidney Disease* + --+ --+ ------+| GFR (mL/min/1.73 m2) ?| With Kidney Damage ?| ?Without Kidney Damage+ --------+ --------+ +| ?>90 ?| ?Stage one ?| ? Normal ?+ ---+ ---+ -------+| ?60-89 ?| ?Stage two ?| ? Decreased GFR ? + --+ --+ ------+| ?30-59 ?| ?Stage three ?| ? Stage three ? + --+ --+ ------+| ?15-29 ?| ?Stage four ? | ? Stage four ?+ ---+ ---+ -------+| ?<15 (or dialysis) ? ?| ?Stage five ? | ? Stage five ?+ ---+ ---+ -------+ *Each stage assumes the associated GFR level has been in effect for at least three months. ?Stages 1 to 5, with or without kidney disease, indicate chronic kidney disease. Notes: Determination of stages one and two (with eGFR >59mL/min/1.73 m2) requires estimation of kidney damage for at least three months as defined by structural or functional abnormalities of the kidney, manifested by either:Pathological abnormalities or Markers of kidney damage (including abnormalities in the composition of the blood or urine or abnormalities in imaging tests). Lab Interpretation Abnormal (test code = 60894-8) [facility]2023-01-25 11:57:57 Test Item Value Reference Range Interpretation Comments MAGNESIUM (test code = 3627636551) 1.7 mg/dL 1.7-2.4 Lab Interpretation (test code = Normal 38225-7) [facility]57 Test Item Value Reference Range Interpretation Comments MAGNESIUM (test code = 3500433097) 1.6 mg/dL 1.7-2.4 L Lab Interpretation (test code = Abnormal 50577-8) [facility] METABOLIC PANEL (NA, K, CL, CO2, GLUCOSE, BUN, CREATININE, CA)2022-08-06 10:48:57 Test Item Value Reference Range Interpretation Comments NA (test code = 134 mmol/L 135-145 L 0750191271) K (test code = 4.6 mmol/L 3.5-5.0 1186617045) CL (test code = 99 mmol/L 98-108 2307252039) CO2 TOTAL (test code = 26 mmol/L 23-31 4638775617) AGAP (test code = 2-16 5083025243) BUN (test code = 24 mg/dL 7-23 H 0720083026) GLUCOSE (test code = 131 mg/dL 70-110 H 2861968045) CREATININE (test code = 0.78 mg/dL 0.50-1.04 3805408195) CALCIUM (test code = 9.4 mg/dL 8.6-10.6 8805276621) eGFR (test code = mL/min/1.73m2 5602392377) MIKEY (test code = MIKEY) Association of Glomerular Filtration Rate (GFR) and Staging of Kidney Disease* + --+ --+ ------+| GFR (mL/min/1.73 m2) ?| With Kidney Damage ?| ?Without Kidney Damage+ --------+ --------+ +| ?>90 ?| ?Stage one ?| ? Normal ?+ ---+ ---+ -------+| ?60-89 ?| ?Stage two ?| ? Decreased GFR ? + --+ --+ ------+| ?30-59 ?| ?Stage three ?| ? Stage three ? + --+ --+ ------+| ?15-29 ?| ?Stage four ? | ? Stage four ?+ ---+ ---+ -------+| ?<15 (or dialysis) ? ?| ?Stage five ? | ? Stage five ?+ ---+ ---+ -------+ *Each stage assumes the associated GFR level has been in effect for at least three months. ?Stages 1 to 5, with or without kidney disease, indicate chronic kidney disease. Notes: Determination of stages one and two (with eGFR >59mL/min/1.73 m2) requires estimation of kidney damage for at least three months as defined by structural or functional abnormalities of the kidney, manifested by either:Pathological abnormalities or Markers of kidney damage (including abnormalities in the composition of the blood or urine or abnormalities in imaging tests). Lab Interpretation Abnormal (test code = 14667-1) [facility]57 Test Item Value Reference Range Interpretation Comments MAGNESIUM (test code = 5958451102) 1.6 mg/dL 1.7-2.4 L Lab Interpretation (test code = Abnormal 89281-3) [facility] (NA, K, CL, CO2, GLUCOSE, BUN, CREATININE, CA)2022-08-06 10:48:57 Test Item Value Reference Range Interpretation Comments NA (test code = 134 mmol/L 135-145 L 4471189566) K (test code = 4.6 mmol/L 3.5-5.0 4191204785) CL (test code = 99 mmol/L 98-108 8162550784) CO2 TOTAL (test code = 26 mmol/L 23-31 2604935388) AGAP (test code = 2-16 5738392753) BUN (test code = 24 mg/dL 7-23 H 2771517729) GLUCOSE (test code = 131 mg/dL 70-110 H 4809646594) CREATININE (test code = 0.78 mg/dL 0.50-1.04 5024976933) CALCIUM (test code = 9.4 mg/dL 8.6-10.6 7459937580) eGFR (test code = mL/min/1.73m2 7720723495) MIKEY (test code = MIKEY) Association of Glomerular Filtration Rate (GFR) and Staging of Kidney Disease* + --+ --+ ------+| GFR (mL/min/1.73 m2) ?| With Kidney Damage ?| ?Without Kidney Damage+ --------+ --------+ +| ?>90 ?| ?Stage one ?| ? Normal ?+ ---+ ---+ -------+| ?60-89 ?| ?Stage two ?| ? Decreased GFR ? + --+ --+ ------+| ?30-59 ?| ?Stage three ?| ? Stage three ? + --+ --+ ------+| ?15-29 ?| ?Stage four ? | ? Stage four ?+ ---+ ---+ -------+| ?<15 (or dialysis) ? ?| ?Stage five ? | ? Stage five ?+ ---+ ---+ -------+ *Each stage assumes the associated GFR level has been in effect for at least three months. ?Stages 1 to 5, with or without kidney disease, indicate chronic kidney disease. Notes: Determination of stages one and two (with eGFR >59mL/min/1.73 m2) requires estimation of kidney damage for at least three months as defined by structural or functional abnormalities of the kidney, manifested by either:Pathological abnormalities or Markers of kidney damage (including abnormalities in the composition of the blood or urine or abnormalities in imaging tests). Lab Interpretation Abnormal (test code = 91611-0) [facility] WITH [id number] 10:27:50 Test Item Value Reference Range Interpretation Comments WBC (test code = See_Comment H [Automated 9052-2) message] The system which generated this result transmit radha reference range : 4.30 - 11.10 10*3/?L. The reference range was not used to interpret this result as normal/abnormal . RBC (test code = See_Comment L [Automated 639-8) message] The system which generated this result transmit radha reference range : 3.93 - 5.25 10*6/?L. The reference range was not used to interpret this result as normal/abnormal . HGB (test code = 10.0 g/dL 11.6-15.0 L 718-7) HCT (test code = 30.1 % 35.7-45.2 L 4544-3) MCV (test code = 92.9 fL 80.6-95.5 787-2) MCH (test code = 30.9 pg 25.9-32.8 785-6) MCHC (test code = 33.2 g/dL 31.6-35.1 786-4) RDW-SD (test code = 45.0 fL 39.0-49.9 34535-0) RDW-CV (test code = 13.2 % 12.0-15.5 788-0) PLT (test code = See_Comment [Automated 777-3) message] The system which generated this result transmit radha reference range : 166 - 358 10*3/ ?L. The reference range was not u sed to interpret th is result as normal/abnormal . MPV (test code = 11.8 fL 9.5-12.9 50927-1) NRBC/100 WBC (test See_Comment [Automat ed code = [id number]) message] The system which generated this result transmit radha reference range : 0.0 - 10.0 /100 WBCs. The reference range was not used to interpret this result as normal/abnormal . NRBC x10^3 (test code See_Comment [Auto mated = [id number]) message] The system which generated this result transmit radha reference range : 10*3/?L. The reference range was not used to interpret this result as normal/abnormal . GRAN MAT (NEUT) % 85.6 % (test code = 770-8) IMM GRAN % (test code 0.60 % = 7295827282) LYMPH % (test code = 7.2 % 736-9) MONO % (test code = 6.4 % 5905-5) EOS % (test code = 0.0 % 713-8) BASO % (test code = 0.2 % 706-2) GRAN MAT x10^3(ANC) 10.66 10*3/uL 1.88-7.09 H (test code = 9703166217) IMM GRAN x10^3 (test 0.07 10*3/uL 0.00-0.06 H code = 5184112095) LYMPH x10^3 (test code 0.90 10*3/uL 1.32-3.29 L = 731-0) MONO x10^3 (test code 0.79 10*3/uL 0.33-0.92 = 742-7) EOS x10^3 (test code = 0.03-0.39 L 711-2) BASO x10^3 (test code 0.01-0.07 = 704-7) Lab Interpretation Abnormal (test code = 70390-1) [facility] WITH [id number] 10:27:50 Test Item Value Reference Range Interpretation Comments WBC (test code = See_Comment H [Automated 6690-2) message] The system which generated this result transmit radha reference range : 4.30 - 11.10 10*3/?L. The reference range was not used to interpret this result as normal/abnormal . RBC (test code = See_Comment L [Automated 789-8) message] The system which generated this result transmit radha reference range : 3.93 - 5.25 10*6/?L. The reference range was not used to interpret this result as normal/abnormal . HGB (test code = 10.0 g/dL 11.6-15.0 L 718-7) HCT (test code = 30.1 % 35.7-45.2 L 4544-3) MCV (test code = 92.9 fL 80.6-95.5 787-2) MCH (test code = 30.9 pg 25.9-32.8 785-6) MCHC (test code = 33.2 g/dL 31.6-35.1 786-4) RDW-SD (test code = 45.0 fL 39.0-49.9 91567-0) RDW-CV (test code = 13.2 % 12.0-15.5 788-0) PLT (test code = See_Comment [Automated 777-3) message] The system which generated this result transmit radha reference range : 166 - 358 10*3/ ?L. The reference range was not u sed to interpret th is result as normal/abnormal . MPV (test code = 11.8 fL 9.5-12.9 73939-9) NRBC/100 WBC (test See_Comment [Automat ed code = 1505004841) message] The system which generated this result transmit radha reference range : 0.0 - 10.0 /100 WBCs. The reference range was not used to interpret this result as normal/abnormal . NRBC x10^3 (test code See_Comment [Auto mated = 7064066766) message] The system which generated this result transmit radha reference range : 10*3/?L. The reference range was not used to interpret this result as normal/abnormal . GRAN MAT (NEUT) % 85.6 % (test code = 770-8) IMM GRAN % (test code 0.60 % = 9615220662) LYMPH % (test code = 7.2 % 736-9) MONO % (test code = 6.4 % 5905-5) EOS % (test code = 0.0 % 713-8) BASO % (test code = 0.2 % 706-2) GRAN MAT x10^3(ANC) 10.66 10*3/uL 1.88-7.09 H (test code = 7630645741) IMM GRAN x10^3 (test 0.07 10*3/uL 0.00-0.06 H code = 5720892728) LYMPH x10^3 (test code 0.90 10*3/uL 1.32-3.29 L = 731-0) MONO x10^3 (test code 0.79 10*3/uL 0.33-0.92 = 742-7) EOS x10^3 (test code = 0.03-0.39 L 711-2) BASO x10^3 (test code 0.01-0.07 = 704-7) Lab Interpretation Abnormal (test code = 40185-7) [facility] 05:11:56 Test Item Value Reference Range Interpretation Comments PH (test code = 2) 7.35-7.45 L PCO2 (test code = See_Comment [Automate d message] 0946364486) The system [employer] generated this result transmit radha reference range : 35 - 45 mmHg. The reference range was not used to interpret this result as normal/abnormal . PO2 (test code = See_Comment H [Automated message] 6421479045) The system [employer] generated this result transmit radha reference range : 80 - 100 mmHg. The reference range was not used to interpret this result as normal/abnormal . HCO3 (test code = See_Comment L [Automate d message] 3867034203) The system [employer] generated this result transmit radha reference range : 22 - 26 mEq/L. The reference range was not used to interpret this result as normal/abnormal . BE (test code = See_Comment L [Automated message] 4771000884) The system [employer] generated this result transmit radha reference range : -3.0 - 3.0 mEq/ L. The reference r angela was not used to interpret this result as normal/abnormal . THB (test code = 12.0 g/dL 12.0-16.0 3349502130) %O2HB (test code = 98.7 % 94.0-99.0 9441149796) %COHB ART (test code = 0.6 % 0.0-1.5 1265002533) %METHB ART (test code = 0.3 % 0.4-1.5 L 7530194003) VOL%O2 ART (test code = 17.4 % 15.0-23.0 QUES 4201746386) NA (test code = 132 mmol/L 135-145 L 3628808264) K+ (test code = 3.6 mmol/L 3.5-5.0 6374772448) AC CA IONZ (test code = 5.30 mg/dL 4.50-5.30 2967706598) GLUCOSE (test code = 107 mg/dL 70-110 1767078673) Lab Interpretation Abnormal (test code = 60875-1) [facility]-06 05:11:56 Test Item Value Reference Range Interpretation Comments PH (test code = 2) 7.35-7.45 L PCO2 (test code = See_Comment [Automate d message] 3348021238) The system [employer] generated this result transmit radha reference range : 35 - 45 mmHg. The reference range was not used to interpret this result as normal/abnormal . PO2 (test code = See_Comment H [Automated message] 9470362417) The system [employer] generated this result transmit rahda reference range : 80 - 100 mmHg. The reference range was not used to interpret this result as normal/abnormal . HCO3 (test code = See_Comment L [Automate d message] 2381800286) The system [employer] generated this result transmit radha reference range : 22 - 26 mEq/L. The reference range was not used to interpret this result as normal/abnormal . BE (test code = See_Comment L [Automated message] 2920785615) The system [employer] generated this result transmit radha reference range : -3.0 - 3.0 mEq/ L. The reference r angela was not used to interpret this result as normal/abnormal . THB (test code = 12.0 g/dL 12.0-16.0 5410207348) %O2HB (test code = 98.7 % 94.0-99.0 4483015414) %COHB ART (test code = 0.6 % 0.0-1.5 7499646076) %METHB ART (test code = 0.3 % 0.4-1.5 L 2597516775) VOL%O2 ART (test code = 17.4 % 15.0-23.0 QUES 7757519142) NA (test code = 132 mmol/L 135-145 L 5802861088) K+ (test code = 3.6 mmol/L 3.5-5.0 1675937937) AC CA IONZ (test code = 5.30 mg/dL 4.50-5.30 0623120535) GLUCOSE (test code = 107 mg/dL 70-110 6573345842) Lab Interpretation Abnormal (test code = 34781-9) [facility] [id number] 11:28:31 Test Item Value Reference Range Interpretation Comments ABO & RH (test code O POSITIVE Performe d at [facility] = 20) Laboratory Serv [facility] s [address]Tmvm Free: [phone] A No. [id number] IAT (test code = Negative Performed a t [facility] 1185) Laboratory [facility] Blood [facility]3 [facility] s [address]Oiiu Free: [phone] A No. [id number] [facility] [id number] 11:28:31 Test Item Value Reference Range Interpretation Comments ABO & RH (test code O POSITIVE Performe d at [facility] = 20) Laboratory [facility] Blood [facility] [address]Hvst Free: [phone] A No. [id number] IAT (test code = Negative Performed a t [facility] 1185) Laboratory [facility] Blood [facility] [address]Fauy Free: [phone] A No. [id number] [facility] (NA, K, CL, CO2, GLUCOSE, BUN, CREATININE, CA)2022-08-05 11:17:44 Test Item Value Reference Range Interpretation Comments NA (test code = 133 mmol/L 135-145 L 6017859169) K (test code = 4.5 mmol/L 3.5-5.0 Slight 3898020540) hemolysis CL (test code = 101 mmol/L 98-108 3556556514) CO2 TOTAL (test code 28 mmol/L 23-31 = 2895646705) AGAP (test code = 2-16 6161295876) BUN (test code = 26 mg/dL 7-23 H Slight 3260781237) hemolysis GLUCOSE (test code = 94 mg/dL 70-110 1494513633) CREATININE (test code 0.81 mg/dL 0.50-1.04 = 7575990209) CALCIUM (test code = 9.2 mg/dL 8.6-10.6 2987312534) eGFR (test code = mL/min/1.73m2 9150869839) MIKEY (test code = MIKEY) Association of Glomerular Filtration Rate (GFR) and Staging of Kidney Disease* + -----+ --------+ +| GFR (mL/min/1.73 m2) ?| With Kidney Damage ?| ?Without Kidney Damage+ +------- +---- --+| ?>90 ?| ?Stage one ?| ? Normal ?+ ------+ ---------+--------- +| ?60-89 ?| ?Stage two ?| ? Decreased GFR ? + -----+ --------+ +| ?30-59 ?| ?Stage three ?| ? Stage three ? + -----+ --------+ +| ?15-29 ?| ?Stage four ? | ? Stage four ?+ ------+ ---------+--------- +| ?<15 (or dialysis) ? ?| ?Stage five ? | ? Stage five ?+ ------+ ---------+--------- + *Each stage assumes the associated GFR level has been in effect for at least three months. ?Stages 1 to 5, with or without kidney disease, indicate chronic kidney disease. Notes: Determination of stages one and two (with eGFR >59mL/min/1.73 m2) requires estimation of kidney damage for at least three months as defined by structural or functional abnormalities of the kidney, manifested by either:Pathological abnormalities or Markers of kidney damage (including abnormalities in the composition of the blood or urine or abnormalities in imaging tests). Lab Interpretation Abnormal (test code = 10688-8) [facility] (NA, K, CL, CO2, GLUCOSE, BUN, CREATININE, CA)2022-08-05 11:17:44 Test Item Value Reference Range Interpretation Comments NA (test code = 133 mmol/L 135-145 L 6329745626) K (test code = 4.5 mmol/L 3.5-5.0 Slight 8971618411) hemolysis CL (test code = 101 mmol/L 98-108 7643008474) CO2 TOTAL (test code 28 mmol/L 23-31 = 2174858392) AGAP (test code = 2-16 7197435003) BUN (test code = 26 mg/dL 7-23 H Slight 9274366380) hemolysis GLUCOSE (test code = 94 mg/dL 70-110 2580949612) CREATININE (test code 0.81 mg/dL 0.50-1.04 = 6318778203) CALCIUM (test code = 9.2 mg/dL 8.6-10.6 9848116499) eGFR (test code = mL/min/1.73m2 4896706181) MIKEY (test code = MIKEY) Association of Glomerular Filtration Rate (GFR) and Staging of Kidney Disease* + -----+ --------+ +| GFR (mL/min/1.73 m2) ?| With Kidney Damage ?| ?Without Kidney Damage+ +------- +---- --+| ?>90 ?| ?Stage one ?| ? Normal ?+ ------+ ---------+--------- +| ?60-89 ?| ?Stage two ?| ? Decreased GFR ? + -----+ --------+ +| ?30-59 ?| ?Stage three ?| ? Stage three ? + -----+ --------+ +| ?15-29 ?| ?Stage four ? | ? Stage four ?+ ------+ ---------+--------- +| ?<15 (or dialysis) ? ?| ?Stage five ? | ? Stage five ?+ ------+ ---------+--------- + *Each stage assumes the associated GFR level has been in effect for at least three months. ?Stages 1 to 5, with or without kidney disease, indicate chronic kidney disease. Notes: Determination of stages one and two (with eGFR >59mL/min/1.73 m2) requires estimation of kidney damage for at least three months as defined by structural or functional abnormalities of the kidney, manifested by either:Pathological abnormalities or Markers of kidney damage (including abnormalities in the composition of the blood or urine or abnormalities in imaging tests). Lab Interpretation Abnormal (test code = 83136-8) [facility] / [id number] 11:00:23 Test Item Value Reference Range Interpretation Comments PROTIME PATIENT (test See_Comment [Auto mated message] code = 5964-2) The system [employer] generated this result transmitted ref erence range: 10.1 - 1 2.6 Seconds. The re ference range was not u sed to interpret this result as normal/abnor mal. INR (test code = 6301-6) Nor mal INR <1.1; Warfarin Therap eutic range 2.0 to 3. 0 or 2.5 to 3.5, dep ending upon the indica tions. Lab Interpretation (test Normal code = 46389-4) [facility] [id number] 11:00:23 Test Item Value Reference Range Interpretation Comments APTT Patient (test code = See_Comment [ Automated message] 3173-2) The system [employer] generated this result transmitted ref erence range: 26 - 36 Seconds. The re ference range was not u sed to interpret this result as normal/abnor mal. Lab Interpretation (test Normal code = 21778-4) [facility] / [id number] 11:00:23 Test Item Value Reference Range Interpretation Comments PROTIME PATIENT (test See_Comment [Auto mated message] code = 5964-2) The system [employer] generated this result transmitted ref erence range: 10.1 - 1 2.6 Seconds. The re ference range was not u sed to interpret this result as normal/abnor mal. INR (test code = 6301-6) Nor mal INR <1.1; Warfarin Therap eutic range 2.0 to 3. 0 or 2.5 to 3.5, dep ending upon the indica tions. Lab Interpretation (test Normal code = 29755-8) [facility] [id number] 11:00:23 Test Item Value Reference Range Interpretation Comments APTT Patient (test code = See_Comment [ Automated message] 3173-2) The system whic h generated this result transmitted ref erence range: 26 - 36 Seconds. The re ference range was not u sed to interpret this result as normal/abnor mal. Lab Interpretation (test Normal code = 14277-0) [facility] WITH [id number] 10:54:04 Test Item Value Reference Range Interpretation Comments WBC (test code = See_Comment [Automated 6290-2) message] The sy stem which generated this result transmitted reference range : 4.30 - 11.10 10*3/?L. The reference range was not used to interpret this result as normal/abnormal . RBC (test code = See_Comment L [Automated 189-8) message] The sy stem which generated this result transmitted reference range : 3.93 - 5.25 10*6/?L. The reference range was not used to interpret this result as normal/abnormal . HGB (test code = 12.0 g/dL 11.6-15.0 718-7) HCT (test code = 35.4 % 35.7-45.2 L 4544-3) MCV (test code = 93.4 fL 80.6-95.5 787-2) MCH (test code = 31.7 pg 25.9-32.8 785-6) MCHC (test code = 33.9 g/dL 31.6-35.1 786-4) RDW-SD (test code = 46.5 fL 39.0-49.9 97725-4) RDW-CV (test code = 13.7 % 12.0-15.5 788-0) PLT (test code = See_Comment [Automated 777-3) message] The sy stem which generated this result transmitted reference range : 166 - 358 10*3/ ?L. The reference r angela was not used to interpret this result as normal/abnormal . MPV (test code = 12.1 fL 9.5-12.9 61433-2) NRBC/100 WBC (test See_Comment [Automat ed code = 9603406756) message] The system which generated this result transmitted reference range : 0.0 - 10.0 /100 WBCs. The refer ence range was not u sed to interpret th is result as normal/abnormal . NRBC x10^3 (test code See_Comment [Auto mated = 4067932068) message] The s ystem which generated this result transmitted reference range : 10*3/?L. The reference range was not used to interpret this result as normal/abnormal . GRAN MAT (NEUT) % 51.8 % (test code = 770-8) IMM GRAN % (test code 0.10 % = 0706987312) LYMPH % (test code = 28.0 % 736-9) MONO % (test code = 15.1 % 5905-5) EOS % (test code = 4.3 % 713-8) BASO % (test code = 0.7 % 706-2) GRAN MAT x10^3(ANC) 4.71 10*3/uL 1.88-7.09 (test code = 7651681404) IMM GRAN x10^3 (test 0.00-0.06 code = 5133674561) LYMPH x10^3 (test code 2.54 10*3/uL 1.32-3.29 = 731-0) MONO x10^3 (test code 1.37 10*3/uL 0.33-0.92 H = 742-7) EOS x10^3 (test code = 0.39 10*3/uL 0.03-0.39 711-2) BASO x10^3 (test code 0.06 10*3/uL 0.01-0.07 = 704-7) Lab Interpretation Abnormal (test code = 68923-7) [facility] WITH [id number] 10:54:04 Test Item Value Reference Range Interpretation Comments WBC (test code = See_Comment [Automated 6690-2) message] The sy stem which generated this result transmitted reference range : 4.30 - 11.10 10*3/?L. The reference range was not used to interpret this result as normal/abnormal . RBC (test code = See_Comment L [Automated 789-8) message] The sy stem which generated this result transmitted reference range : 3.93 - 5.25 10*6/?L. The reference range was not used to interpret this result as normal/abnormal . HGB (test code = 12.0 g/dL 11.6-15.0 718-7) HCT (test code = 35.4 % 35.7-45.2 L 4544-3) MCV (test code = 93.4 fL 80.6-95.5 787-2) MCH (test code = 31.7 pg 25.9-32.8 785-6) MCHC (test code = 33.9 g/dL 31.6-35.1 786-4) RDW-SD (test code = 46.5 fL 39.0-49.9 55465-4) RDW-CV (test code = 13.7 % 12.0-15.5 788-0) PLT (test code = See_Comment [Automated 777-3) message] The sy stem which generated this result transmitted reference range : 166 - 358 10*3/ ?L. The reference r angela was not used to interpret this result as normal/abnormal . MPV (test code = 12.1 fL 9.5-12.9 08975-9) NRBC/100 WBC (test See_Comment [Automat ed code = 5900726551) message] The system which generated this result transmitted reference range : 0.0 - 10.0 /100 WBCs. The refer ence range was not u sed to interpret th is result as normal/abnormal . NRBC x10^3 (test code See_Comment [Auto mated = 3807752797) message] The s ystem which generated this result transmitted reference range : 10*3/?L. The reference range was not used to interpret this result as normal/abnormal . GRAN MAT (NEUT) % 51.8 % (test code = 770-8) IMM GRAN % (test code 0.10 % = 0587968294) LYMPH % (test code = 28.0 % 736-9) MONO % (test code = 15.1 % 5905-5) EOS % (test code = 4.3 % 713-8) BASO % (test code = 0.7 % 706-2) GRAN MAT x10^3(ANC) 4.71 10*3/uL 1.88-7.09 (test code = 2625143019) IMM GRAN x10^3 (test 0.00-0.06 code = 8699776718) LYMPH x10^3 (test code 2.54 10*3/uL 1.32-3.29 = 731-0) MONO x10^3 (test code 1.37 10*3/uL 0.33-0.92 H = 742-7) EOS x10^3 (test code = 0.39 10*3/uL 0.03-0.39 711-2) BASO x10^3 (test code 0.06 10*3/uL 0.01-0.07 = 704-7) Lab Interpretation Abnormal (test code = 07750-3) [facility] WITH [id number] 11:37:09 Test Item Value Reference Range Interpretation Comments WBC (test code = See_Comment H [Automated 90-2) message] The sy stem which generated this result transmitted reference range : 4.30 - 11.10 10*3/?L. The reference range was not used to interpret this result as normal/abnormal . RBC (test code = See_Comment L [Automated 029-8) message] The sy stem which generated this result transmitted reference range : 3.93 - 5.25 10*6/?L. The reference range was not used to interpret this result as normal/abnormal . HGB (test code = 12.1 g/dL 11.6-15.0 718-7) HCT (test code = 36.7 % 35.7-45.2 4544-3) MCV (test code = 95.6 fL 80.6-95.5 H 787-2) MCH (test code = 31.5 pg 25.9-32.8 785-6) MCHC (test code = 33.0 g/dL 31.6-35.1 786-4) RDW-SD (test code = 48.3 fL 39.0-49.9 63792-0) RDW-CV (test code = 13.6 % 12.0-15.5 788-0) PLT (test code = See_Comment [Automated 777-3) message] The sy stem which generated this result transmitted reference range : 166 - 358 10*3/ ?L. The reference r angela was not used to interpret this result as normal/abnormal . MPV (test code = 12.0 fL 9.5-12.9 48471-4) NRBC/100 WBC (test See_Comment [Automat ed code = 5873511595) message] The system which generated this result transmitted reference range : 0.0 - 10.0 /100 WBCs. The refer ence range was not u sed to interpret th is result as normal/abnormal . NRBC x10^3 (test code See_Comment [Auto mated = 0410453704) message] The s ystem which generated this result transmitted reference range : 10*3/?L. The reference range was not used to interpret this result as normal/abnormal . GRAN MAT (NEUT) % 59.1 % (test code = 770-8) IMM GRAN % (test code 0.30 % = 4030362088) LYMPH % (test code = 21.6 % 736-9) MONO % (test code = 15.2 % 5905-5) EOS % (test code = 3.3 % 713-8) BASO % (test code = 0.5 % 706-2) GRAN MAT x10^3(ANC) 6.97 10*3/uL 1.88-7.09 (test code = 8920301879) IMM GRAN x10^3 (test 0.04 10*3/uL 0.00-0.06 code = 0288986821) LYMPH x10^3 (test code 2.55 10*3/uL 1.32-3.29 = 731-0) MONO x10^3 (test code 1.79 10*3/uL 0.33-0.92 H = 742-7) EOS x10^3 (test code = 0.39 10*3/uL 0.03-0.39 711-2) BASO x10^3 (test code 0.06 10*3/uL 0.01-0.07 = 704-7) Lab Interpretation Abnormal (test code = 75413-6) [facility] WITH [id number] 11:37:09 Test Item Value Reference Range Interpretation Comments WBC (test code = See_Comment H [Automated 6690-2) message] The sy stem which generated this result transmitted reference range : 4.30 - 11.10 10*3/?L. The reference range was not used to interpret this result as normal/abnormal . RBC (test code = See_Comment L [Automated 789-8) message] The sy stem which generated this result transmitted reference range : 3.93 - 5.25 10*6/?L. The reference range was not used to interpret this result as normal/abnormal . HGB (test code = 12.1 g/dL 11.6-15.0 718-7) HCT (test code = 36.7 % 35.7-45.2 4544-3) MCV (test code = 95.6 fL 80.6-95.5 H 787-2) MCH (test code = 31.5 pg 25.9-32.8 785-6) MCHC (test code = 33.0 g/dL 31.6-35.1 786-4) RDW-SD (test code = 48.3 fL 39.0-49.9 58827-9) RDW-CV (test code = 13.6 % 12.0-15.5 788-0) PLT (test code = See_Comment [Automated 777-3) message] The sy stem which generated this result transmitted reference range : 166 - 358 10*3/ ?L. The reference r angela was not used to interpret this result as normal/abnormal . MPV (test code = 12.0 fL 9.5-12.9 22266-3) NRBC/100 WBC (test See_Comment [Automat ed code = 1540194955) message] The system which generated this result transmitted reference range : 0.0 - 10.0 /100 WBCs. The refer ence range was not u sed to interpret th is result as normal/abnormal . NRBC x10^3 (test code See_Comment [Auto mated = 4026422266) message] The s ystem which generated this result transmitted reference range : 10*3/?L. The reference range was not used to interpret this result as normal/abnormal . GRAN MAT (NEUT) % 59.1 % (test code = 770-8) IMM GRAN % (test code 0.30 % = 6207477108) LYMPH % (test code = 21.6 % 736-9) MONO % (test code = 15.2 % 5905-5) EOS % (test code = 3.3 % 713-8) BASO % (test code = 0.5 % 706-2) GRAN MAT x10^3(ANC) 6.97 10*3/uL 1.88-7.09 (test code = 2305449009) IMM GRAN x10^3 (test 0.04 10*3/uL 0.00-0.06 code = 9269002076) LYMPH x10^3 (test code 2.55 10*3/uL 1.32-3.29 = 731-0) MONO x10^3 (test code 1.79 10*3/uL 0.33-0.92 H = 742-7) EOS x10^3 (test code = 0.39 10*3/uL 0.03-0.39 711-2) BASO x10^3 (test code 0.06 10*3/uL 0.01-0.07 = 704-7) Lab Interpretation Abnormal (test code = 26870-0) [facility] METABOLIC PANEL (NA, K, CL, CO2, GLUCOSE, BUN, CREATININE, CA)2022-08-04 11:36:13 Test Item Value Reference Range Interpretation Comments NA (test code = 134 mmol/L 135-145 L 3156555592) K (test code = 3.9 mmol/L 3.5-5.0 7618751344) CL (test code = 97 mmol/L 98-108 L 9600409499) CO2 TOTAL (test code = 28 mmol/L 23-31 5808456659) AGAP (test code = 2-16 9992757520) BUN (test code = 28 mg/dL 7-23 H 6827005508) GLUCOSE (test code = 110 mg/dL 70-110 1809790019) CREATININE (test code = 0.98 mg/dL 0.50-1.04 6467059444) CALCIUM (test code = 9.0 mg/dL 8.6-10.6 8666997321) eGFR (test code = mL/min/1.73m2 5573066144) MIKEY (test code = MIKEY) Association of Glomerular Filtration Rate (GFR) and Staging of Kidney Disease* + --+ --+ ------+| GFR (mL/min/1.73 m2) ?| With Kidney Damage ?| ?Without Kidney Damage+ --------+ --------+ +| ?>90 ?| ?Stage one ?| ? Normal ?+ ---+ ---+ -------+| ?60-89 ?| ?Stage two ?| ? Decreased GFR ? + --+ --+ ------+| ?30-59 ?| ?Stage three ?| ? Stage three ? + --+ --+ ------+| ?15-29 ?| ?Stage four ? | ? Stage four ?+ ---+ ---+ -------+| ?<15 (or dialysis) ? ?| ?Stage five ? | ? Stage five ?+ ---+ ---+ -------+ *Each stage assumes the associated GFR level has been in effect for at least three months. ?Stages 1 to 5, with or without kidney disease, indicate chronic kidney disease. Notes: Determination of stages one and two (with eGFR >59mL/min/1.73 m2) requires estimation of kidney damage for at least three months as defined by structural or functional abnormalities of the kidney, manifested by either:Pathological abnormalities or Markers of kidney damage (including abnormalities in the composition of the blood or urine or abnormalities in imaging tests). Lab Interpretation Abnormal (test code = 70355-5) [facility] Test Item Value Reference Range Interpretation Comments MAGNESIUM (test code = 5740229167) 1.9 mg/dL 1.7-2.4 Lab Interpretation (test code = Normal 90498-4) [facility] METABOLIC PANEL (NA, K, CL, CO2, GLUCOSE, BUN, CREATININE, CA)2022-08-04 11:36:13 Test Item Value Reference Range Interpretation Comments NA (test code = 134 mmol/L 135-145 L 9140340264) K (test code = 3.9 mmol/L 3.5-5.0 9304707610) CL (test code = 97 mmol/L 98-108 L 0722206647) CO2 TOTAL (test code = 28 mmol/L 23-31 7111404430) AGAP (test code = 2-16 7880728155) BUN (test code = 28 mg/dL 7-23 H 9490964707) GLUCOSE (test code = 110 mg/dL 70-110 0081488152) CREATININE (test code = 0.98 mg/dL 0.50-1.04 9151008615) CALCIUM (test code = 9.0 mg/dL 8.6-10.6 1921257619) eGFR (test code = mL/min/1.73m2 4254969491) MIKEY (test code = MIKEY) Association of Glomerular Filtration Rate (GFR) and Staging of Kidney Disease* + --+ --+ ------+| GFR (mL/min/1.73 m2) ?| With Kidney Damage ?| ?Without Kidney Damage+ --------+ --------+ +| ?>90 ?| ?Stage one ?| ? Normal ?+ ---+ ---+ -------+| ?60-89 ?| ?Stage two ?| ? Decreased GFR ? + --+ --+ ------+| ?30-59 ?| ?Stage three ?| ? Stage three ? + --+ --+ ------+| ?15-29 ?| ?Stage four ? | ? Stage four ?+ ---+ ---+ -------+| ?<15 (or dialysis) ? ?| ?Stage five ? | ? Stage five ?+ ---+ ---+ -------+ *Each stage assumes the associated GFR level has been in effect for at least three months. ?Stages 1 to 5, with or without kidney disease, indicate chronic kidney disease. Notes: Determination of stages one and two (with eGFR >59mL/min/1.73 m2) requires estimation of kidney damage for at least three months as defined by structural or functional abnormalities of the kidney, manifested by either:Pathological abnormalities or Markers of kidney damage (including abnormalities in the composition of the blood or urine or abnormalities in imaging tests). Lab Interpretation Abnormal (test code = 89722-8) [facility] Test Item Value Reference Range Interpretation Comments MAGNESIUM (test code = 4636578952) 1.9 mg/dL 1.7-2.4 Lab Interpretation (test code = Normal 02664-9) [facility]29 22:39:30 Test Item Value Reference Range Interpretation Comments Height (test code = in 3446182196) Weight (test code = lbs 9083569393) Systolic BP (test code = mmHg 2568925033) Diastolic BP (test code mmHg = 8429492187) Heart Rate (test code = bpm 9474932923) BSA (test code = 1.40 m2 3911359150) TASV (test code = 13.5 cm/s 1967776550) LAV(MOD-sp4) (test code 27.60 mL = 5655913136) E wave decelartion time 0.24 s (test code = 1788117192) MV Peak E Luzma (test code 80.1 cm/s = 2047973366) MV Peak A Luzma (test code 45.8 cm/s = 5700563637) E/A ratio (test code = ratio 2265290401) LVOT peak luzma (test code 87.0 cm/s = 2622469995) LVOT mn grad (test code mmHg = 4954651766) AV LVOT peak gradient mmHg (test code = 3070637061) LVOT peak VTI (test code 18.4 cm = 3100823175) LV V1 mean (test code = 54.70 cm/s 7972743135) LA Volume Index (BP) 16.8 mL/m2 (test code = 4443736344) LA volume (BP) (test 23.4 mL code = 0585302428) LAV(MOD-sp2) (test code 20.70 mL = 8480900658) Tapse (test code = 2.13 cm 6789934461) LVIDS (test code = 0.00 cm 5659169360) Left Ventricular End 0.00 mL Systolic Volume by Teichholz Method (test code = 8409374) LVIDD (test code = 3.70 cm 9425248410) Left Ventricular End 59.6 mL Diastolic Volume by Teichholz Method (test code = 2736143) IVS (test code = 0.82 cm 5426299142) Interventricular Septum 0.82 cm Diastolic Thickness by 2D (test code = 1389862) LVPWD (test code = 0.94 cm 2658170984) PW (test code = 0.94 cm 0.6-1.6 8258567485) MV E/e' septal (test 9.7 cm/s code = 2614942654) Radiology Study observation (narrative) (test code = 70532-1) MIKEY (test code = MIKEY) ?Left?Ventricle: Left ventricle size is normal. Basal septal thickening. Normal wall motion. Grossly normal wall motion. Normal systolic function with a visually estimated EF of 55 - 60%. Normal diastolic function. ?Right?Ventricle: Right ventricle size is normal. Normal systolic function. ?Left?Atrium: Left atrium size is normal. ?Tricuspid?Valve: Tricuspid valve structure is normal. Insufficient tricuspid regurgitation jet to estimate RVSP.RA pressure is 0-5 mmHg. ?Aortic?Valve: Tricuspid. Mildly thickened cusps. Mildly calcified cusps. No transvalvular regurgitation. No evidence of aortic stenosis. ?Aorta: Normal sized annulus and sinus of Valsalva. ?Pericardium: Evidence of epicardial fat. Trivial pericardial effusion present. Left VentricleLeft ventricle size is normal. Basal septal thickening. Normal wall motion. Grossly normal wall motion. Normal systolic function with a visually estimated EF of 55 - 60%. Normal diastolic function.Right VentricleRight ventricle size is normal. Normal systolic function.Left AtriumLeft atrium size is normal.Right AtriumRight atrium size is normal.IVC/SVCIVC diameter is less than or equal to 21 mm and decreases greater than 50% during inspiration; therefore the estimated right atrial pressure is normal (~0-5 mmHg).Mitral ValveMitral valve structure is normal.Tricuspid ValveTricuspid valve structure is normal. Insufficient tricuspid regurgitation jet to estimate RVSP.RA pressure is 0-5 mmHg.Aortic ValveTricuspid. Mildly thickened cusps. Mildly calcified cusps. No transvalvular regurgitation. No evidence of aortic stenosis.Pulmonic ValveNot well visualized. Pulmonic valve is normal in structure and function.Ascending AortaNormal sized annulus and sinus of Valsalva.PericardiumE vidence of epicardial fat. Trivial pericardial effusion present.Study DetailsStudy quality was adequate. A complete echocardiogram was performed using 2D, color flow Doppler and spectral Doppler. 2 mL of Definity ultrasound enhancing agent used. [facility] 22:39:30 Test Item Value Reference Range Interpretation Comments Height (test code = in 7723217701) Weight (test code = lbs 0823028159) Systolic BP (test code = mmHg 8041389233) Diastolic BP (test code mmHg = 3017403614) Heart Rate (test code = bpm 0660632096) BSA (test code = 1.40 m2 6166309747) TASV (test code = 13.5 cm/s 3294872908) LAV(MOD-sp4) (test code 27.60 mL = 9431978235) E wave decelartion time 0.24 s (test code = 1864619048) MV Peak E Luzma (test code 80.1 cm/s = 9153739926) MV Peak A Luzma (test code 45.8 cm/s = 2650605722) E/A ratio (test code = ratio 8195375440) LVOT peak luzma (test code 87.0 cm/s = 7303581656) LVOT mn grad (test code mmHg = 7471003665) AV LVOT peak gradient mmHg (test code = 5845987810) LVOT peak VTI (test code 18.4 cm = 7038442646) LV V1 mean (test code = 54.70 cm/s 9914094697) LA Volume Index (BP) 16.8 mL/m2 (test code = 8354440884) LA volume (BP) (test 23.4 mL code = 0897119295) LAV(MOD-sp2) (test code 20.70 mL = 9094513050) Tapse (test code = 2.13 cm 9710664019) LVIDS (test code = 0.00 cm 2381441792) Left Ventricular End 0.00 mL Systolic Volume by Teichholz Method (test code = 0190922) LVIDD (test code = 3.70 cm 6661394617) Left Ventricular End 59.6 mL Diastolic Volume by Teichholz Method (test code = 5659149) IVS (test code = 0.82 cm 3333792296) Interventricular Septum 0.82 cm Diastolic Thickness by 2D (test code = 4445957) LVPWD (test code = 0.94 cm 9358511253) PW (test code = 0.94 cm 0.6-1.9 2858814923) MV E/e' septal (test 9.7 cm/s code = 9381718351) Radiology Study observation (narrative) (test code = 91217-0) MIKEY (test code = MIKEY) ?Left?Ventricle: Left ventricle size is normal. Basal septal thickening. Normal wall motion. Grossly normal wall motion. Normal systolic function with a visually estimated EF of 55 - 60%. Normal diastolic function. ?Right?Ventricle: Right ventricle size is normal. Normal systolic function. ?Left?Atrium: Left atrium size is normal. ?Tricuspid?Valve: Tricuspid valve structure is normal. Insufficient tricuspid regurgitation jet to estimate RVSP.RA pressure is 0-5 mmHg. ?Aortic?Valve: Tricuspid. Mildly thickened cusps. Mildly calcified cusps. No transvalvular regurgitation. No evidence of aortic stenosis. ?Aorta: Normal sized annulus and sinus of Valsalva. ?Pericardium: Evidence of epicardial fat. Trivial pericardial effusion present. Left VentricleLeft ventricle size is normal. Basal septal thickening. Normal wall motion. Grossly normal wall motion. Normal systolic function with a visually estimated EF of 55 - 60%. Normal diastolic function.Right VentricleRight ventricle size is normal. Normal systolic function.Left AtriumLeft atrium size is normal.Right AtriumRight atrium size is normal.IVC/SVCIVC diameter is less than or equal to 21 mm and decreases greater than 50% during inspiration; therefore the estimated right atrial pressure is normal (~0-5 mmHg).Mitral ValveMitral valve structure is normal.Tricuspid ValveTricuspid valve structure is normal. Insufficient tricuspid regurgitation jet to estimate RVSP.RA pressure is 0-5 mmHg.Aortic ValveTricuspid. Mildly thickened cusps. Mildly calcified cusps. No transvalvular regurgitation. No evidence of aortic stenosis.Pulmonic ValveNot well visualized. Pulmonic valve is normal in structure and function.Ascending AortaNormal sized annulus and sinus of Valsalva.PericardiumE vidence of epicardial fat. Trivial pericardial effusion present.Study DetailsStudy quality was adequate. A complete echocardiogram was performed using 2D, color flow Doppler and spectral Doppler. 2 mL of Definity ultrasound enhancing agent used. [facility] Confirmation (Lab Only)2022-07-29 13:12:44 Test Item Value Reference Range Interpretation Comments ABO & RH (test code O Positive Performe d at [facility] = 20) Laboratory [facility] Blood [address] [address]Nwbz Free: [phone] A No. [id number] [facility] Confirmation (Lab Only)2022-07-29 13:12:44 Test Item Value Reference Range Interpretation Comments ABO & RH (test code O Positive Performe d at [facility] = 20) Laboratory [facility] Blood [address] s [id number] Free: [phone] A No. [id number] [facility] and Screen - ONCE Jpsyicg1958-04-16 11:59:49 Test Item Value Reference Range Interpretation Comments ABO & RH (test code O POSITIVE Performe d at [facility] = 20) Laboratory [facility] Blood [address] s [id number] Free: [phone] A No. [id number] IAT (test code = Negative Performed a t [facility] 1185) Laboratory [facility] Blood [address] s [address]Txwp Free: [phone] A No. [id number] [facility] and Screen - ONCE Mijsvew7446-68-66 11:59:49 Test Item Value Reference Range Interpretation Comments ABO & RH (test code O POSITIVE Performe d at [facility] = 20) Laboratory [facility] Blood [address] s [id number] Free: [phone] A No. [id number] IAT (test code = Negative Performed a t [facility] 1185) Laboratory [facility] Blood [address] [address]Whpq Free: [phone] A No. [id number] [facility] 23:49:27 Test Item Value Reference Range Interpretation Comments LIPASE (test code = 2618330613) 113 U/L 0-220 Lab Interpretation (test code = Normal 63646-3) [facility] 23:49:27 Test Item Value Reference Range Interpretation Comments LIPASE (test code = 0992187657) 113 U/L 0-220 Lab Interpretation (test code = Normal 00925-6) [facility] WITH [id number] 23:41:45 Test Item Value Reference Range Interpretation Comments WBC (test code = See_Comment H [Automated 7390-2) message] The system which generated this result transmit radha reference range : 4.30 - 11.10 10*3/?L. The reference range was not used to interpret this result as normal/abnormal . RBC (test code = See_Comment [Automated 789-8) message] The system which generated this result transmit radha reference range : 3.93 - 5.25 10*6/?L. The reference range was not used to interpret this result as normal/abnormal . HGB (test code = 14.4 g/dL 11.6-15.0 718-7) HCT (test code = 43.1 % 35.7-45.2 4544-3) MCV (test code = 93.7 fL 80.6-95.5 787-2) MCH (test code = 31.3 pg 25.9-32.8 785-6) MCHC (test code = 33.4 g/dL 31.6-35.1 786-4) RDW-SD (test code = 45.1 fL 39.0-49.9 42800-1) RDW-CV (test code = 13.2 % 12.0-15.5 788-0) PLT (test code = See_Comment [Automated 777-3) message] The system which generated this result transmit radha reference range : 166 - 358 10*3/ ?L. The reference range was not u sed to interpret th is result as normal/abnormal . MPV (test code = 12.5 fL 9.5-12.9 48939-4) NRBC/100 WBC (test See_Comment [Automat ed code = 8736771501) message] The system which generated this result transmit radha reference range : 0.0 - 10.0 /100 WBCs. The reference range was not used to interpret this result as normal/abnormal . NRBC x10^3 (test code See_Comment [Auto mated = 3341859540) message] The system which generated this result transmit radha reference range : 10*3/?L. The reference range was not used to interpret this result as normal/abnormal . GRAN MAT (NEUT) % 90.7 % (test code = 770-8) IMM GRAN % (test code 0.30 % = 2663675790) LYMPH % (test code = 7.7 % 736-9) MONO % (test code = 0.7 % 5905-5) EOS % (test code = 0.1 % 713-8) BASO % (test code = 0.5 % 706-2) GRAN MAT x10^3(ANC) 13.90 10*3/uL 1.88-7.09 H (test code = 6025354292) IMM GRAN x10^3 (test 0.04 10*3/uL 0.00-0.06 code = 3279091759) LYMPH x10^3 (test code 1.18 10*3/uL 1.32-3.29 L = 731-0) MONO x10^3 (test code 0.10 10*3/uL 0.33-0.92 L = 742-7) EOS x10^3 (test code = 0.03-0.39 L 711-2) BASO x10^3 (test code 0.08 10*3/uL 0.01-0.07 H = 704-7) Lab Interpretation Abnormal (test code = 67579-2) [facility] WITH [id number] 23:41:45 Test Item Value Reference Range Interpretation Comments WBC (test code = See_Comment H [Automated 6690-2) message] The system which generated this result transmit radha reference range : 4.30 - 11.10 10*3/?L. The reference range was not used to interpret this result as normal/abnormal . RBC (test code = See_Comment [Automated 789-8) message] The system which generated this result transmit radha reference range : 3.93 - 5.25 10*6/?L. The reference range was not used to interpret this result as normal/abnormal . HGB (test code = 14.4 g/dL 11.6-15.0 718-7) HCT (test code = 43.1 % 35.7-45.2 4544-3) MCV (test code = 93.7 fL 80.6-95.5 787-2) MCH (test code = 31.3 pg 25.9-32.8 785-6) MCHC (test code = 33.4 g/dL 31.6-35.1 786-4) RDW-SD (test code = 45.1 fL 39.0-49.9 26090-5) RDW-CV (test code = 13.2 % 12.0-15.5 788-0) PLT (test code = See_Comment [Automated 777-3) message] The system which generated this result transmit radha reference range : 166 - 358 10*3/ ?L. The reference range was not u sed to interpret th is result as normal/abnormal . MPV (test code = 12.5 fL 9.5-12.9 09360-1) NRBC/100 WBC (test See_Comment [Automat ed code = 3781023646) message] The system which generated this result transmit radha reference range : 0.0 - 10.0 /100 WBCs. The reference range was not used to interpret this result as normal/abnormal . NRBC x10^3 (test code See_Comment [Auto mated = 6267247054) message] The system which generated this result transmit radha reference range : 10*3/?L. The reference range was not used to interpret this result as normal/abnormal . GRAN MAT (NEUT) % 90.7 % (test code = 770-8) IMM GRAN % (test code 0.30 % = 1716310733) LYMPH % (test code = 7.7 % 736-9) MONO % (test code = 0.7 % 5905-5) EOS % (test code = 0.1 % 713-8) BASO % (test code = 0.5 % 706-2) GRAN MAT x10^3(ANC) 13.90 10*3/uL 1.88-7.09 H (test code = 4496069931) IMM GRAN x10^3 (test 0.04 10*3/uL 0.00-0.06 code = 7453769091) LYMPH x10^3 (test code 1.18 10*3/uL 1.32-3.29 L = 731-0) MONO x10^3 (test code 0.10 10*3/uL 0.33-0.92 L = 742-7) EOS x10^3 (test code = 0.03-0.39 L 711-2) BASO x10^3 (test code 0.08 10*3/uL 0.01-0.07 H = 704-7) Lab Interpretation Abnormal (test code = 56033-9) [facility] WITH [id number] 15:56:00 Test Item Value Reference Range Interpretation Comments WBC (test code = See_Comment [Automated 2482-2) message] The sy stem which generated this result transmitted reference range : 4.30 - 11.10 10*3/?L. The reference range was not used to interpret this result as normal/abnormal . RBC (test code = See_Comment [Automated 973-8) message] The sy stem which generated this result transmitted reference range : 3.93 - 5.25 10*6/?L. The reference range was not used to interpret this result as normal/abnormal . HGB (test code = 14.1 g/dL 11.6-15 718-7) HCT (test code = 42.3 % 35.7-45.2 4544-3) MCV (test code = 94.6 fL 80.6-95.5 787-2) MCH (test code = 31.5 pg 25.9-32.8 785-6) MCHC (test code = 33.3 g/dL 31.6-35.1 786-4) RDW-SD (test code = 46.0 fL 39-49.9 00227-6) RDW-CV (test code = 13.2 % 12-15.5 788-0) PLT (test code = See_Comment [Automated 777-3) message] The sy stem which generated this result transmitted reference range : 166 - 358 10*3/ ?L. The reference r angela was not used to interpret this result as normal/abnormal . MPV (test code = 11.8 fL 9.5-12.9 51889-7) NRBC/100 WBC (test See_Comment [Automat ed code = 3099941636) message] The system which generated this result transmitted reference range : 0.0 - 10.0 /100 WBCs. The refer ence range was not u sed to interpret th is result as normal/abnormal . NRBC x10^3 (test code <0.01 See_Comment [Auto mated = 1280422544) message] The s ystem which generated this result transmitted reference range : 10*3/?L. The reference range was not used to interpret this result as normal/abnormal . GRAN MAT (NEUT) % 57.0 % (test code = 770-8) IMM GRAN % (test code 0.40 % = 4910224605) LYMPH % (test code = 29.6 % 736-9) MONO % (test code = 9.6 % 5905-5) EOS % (test code = 2.2 % 713-8) BASO % (test code = 1.2 % 706-2) GRAN MAT x10^3(ANC) 5.49 10*3/uL 1.88-7.09 (test code = 9073402185) IMM GRAN x10^3 (test 0.04 10*3/uL 0-0.06 code = 7427739564) LYMPH x10^3 (test code 2.86 10*3/uL 1.32-3.29 = 731-0) MONO x10^3 (test code 0.93 10*3/uL 0.33-0.92 H = 742-7) EOS x10^3 (test code = 0.21 10*3/uL 0.03-0.39 711-2) BASO x10^3 (test code 0.12 10*3/uL 0.01-0.07 H = 704-7) Lab Interpretation Abnormal (test code = 10299-9) [facility] with [id number] 23:33:00 Test Item Value Reference Range Interpretation [...] code = ALYMPH) 3.4 K/cumm 0.5-4.6 N Mckinley Abs (test code = AMONO) 0.7 K/cumm 0.0-1.2 N Eos Abs (test code = AEOS) 0.10 K/cumm 0.00-0.74 N Baso Abs (test code = ABASO) 0.1 K/cumm 0.00-0.21 N Lipid [id number] 23:22:00 Test Item Value Reference Range Interpretation Comments Cholesterol (test 136 mg/dL 0-200 N code = CHOL) Triglycerides (test 100 mg/dL 9-200 N code = TRIG) HDL (test code = 53 mg/dL 50-60 N HDL) Chol/HDL (test code 2.6 Ratio 0.0-4.4 N = CHOLPHDL) LDL, Calculated 63 mg/dL 0-130 N (NOTE)RISK O F HEART (test code = LDLC) DISEASEPu blished by [place] Heart AssociationAnal yte Optimal Boderli ne Increased RiskC HOL <200 200-239 >240TRI G <150 150-199 >200HDL Male: >60 <40HDL Fema le: >60 <50LDL <100 13 0-159 >160LDL NEAR OP TIMAL IS 100-129 VLDL (test code = 20 mg/dL 5-40 N VLDL) LDL/HDL (test code = 1 LDLPHDL) Comprehensive Metabolic [id number] 23:22:00 Test Item Value Reference Range Interpretation [...] by th e MDRD study and [place] d be interpretedwith caution.eGFR Re sult Interpretation: eGFR > or = 60 is in t he Normal RangeeGF R < 60 may mean kidney diseaseeGFR < 1 5 may mean kidney failureRange s recommended by the National Kidney Foundation,http ://nkd ep.nih.gov"
--- NOTE | 2023-02-10 20:49 | RAD REPORT ---
EXAM DESCRIPTION: RAD - Shoulder Left 2 View - 02/10/2023 8:39 pm CLINICAL HISTORY: PAIN COMPARISON: No comparisons FINDINGS/IMPRESSION: No acute fracture. No malalignment. Mild to moderate left glenohumeral joint an d AC joint degenerative changes. Fusion hardware in the cervical spine
[2023-02-10] MEDS ORDERED: MORPHINE 4 MG/ML SYR ONE (20:57)
--- NOTE | 2023-02-10 21:34 | EDPHYS ---
Physician Documentation [facility] Name: Germania Bañuelos Age: 72 yrs Sex: Female : 1950 Arrival Date: 02/10/2023 Time: 19:36 Bed 9 Private MD: ED Physician Negrito Nassar HPI: 02/11 01:35 This 72 yrs old Female presents to ER via EMS with complaints of Fall Injury. rt 01:35 Patient presents to the ED with trip and fall onto her left shoulder. She denies rt hitting her head. She does report pain to her shoulder. Denies other injury or other acute complaints. Pain is aching nature, nonradiating, moderate severity, no other aggravating or alleviating factors. Historical: - Allergies: 02/10 19:55 Darvon; cm10 19:55 Demerol; cm10 19:55 Tamiflu; cm10 - PMHx: 19:55 COPD; Hyperlipidemia; Hypertension; Osteoporosis; shoulder pain; cm10 - PSHx: 19:55 neck; cm10 - Immunization history:: Adult Immunizations unknown. - Social history:: Smoking status: Patient/guardian denies using tobacco, Stopped _ months ago 6. - Family history:: not pertinent. ROS: 02/11 01:35 Constitutional: Negative for fever, chills, and weight loss, Cardiovascular: Negative rt for chest pain, palpitations, and edema, Respiratory: Negative for shortness of breath, cough, wheezing, and pleuritic chest pain, Abdomen/GI: Negative for abdominal pain, nausea, vomiting, diarrhea, and constipation, Skin: Negative for injury, rash, and discoloration, Neuro: Negative for headache, weakness, numbness, tingling, and seizure, Psych: Negative for depression, anxiety, suicide ideation, homicidal ideation, and hallucinations. MS/extremity: Positive for injury or acute deformity, pain. Exam: 01:35 Constitutional: This is a well developed, well nourished patient who is awake, alert, rt and in no acute distress. Head/Face: Normocephalic, atraumatic. Chest/axilla: Normal chest wall appearance and motion. Nontender with no deformity. No lesions are appreciated. Cardiovascular: Regular rate and rhythm with a normal S1 and S2. No gallops, murmurs, or rubs. Normal PMI, no JVD. No pulse deficits. Respiratory: Lungs have equal breath sounds bilaterally, clear to auscultation and percussion. No rales, rhonchi or wheezes noted. No increased work of breathing, no retractions or nasal flaring. Abdomen/GI: Soft, non-tender, with normal bowel sounds. No distension or tympany. No guarding or rebound. No evidence of tenderness throughout. Skin: Warm, dry with normal turgor. Normal color with no rashes, no lesions, and no evidence of cellulitis. Neuro: Awake and alert, GCS 15, oriented to person, place, time, and situation. Cranial nerves II-XII grossly intact. Motor strength 5/5 in all extremities. Sensory grossly intact. Cerebellar exam normal. Normal gait. Psych: Awake, alert, with orientation to person, place and time. Behavior, mood, and affect are within normal limits. 01:35 Musculoskeletal/extremity: Tenderness diffusely to the left shoulder, with range of motion some limited due to pain, no appreciable swelling, deformities noted.. Vital Signs: 02/10 19:53 BP 178 / 70; Pulse 72; Resp 18; Temp 98.1(O); Pulse Ox 98% on R/A; Weight 44.91 kg; cm10 Height 4 ft. 11 in. ; Pain 9/10; 21:00 BP 176 / 71; Pulse 78; Resp 18; Pulse Ox 100% on R/A; eh3 22:55 BP 160 / 66; Pulse 74; Resp 18; Pulse Ox 100% on R/A; kl 19:53 Body Mass Index 20.00 (44.91 kg, 149.86 cm) cm10 19:53 Pain Scale: Adult cm10 MDM: 20:24 Patient medically screened. rt 02/11 01:35 Differential diagnosis: Fracture, dislocation, contusion. Data reviewed: vital signs, rt nurses notes, radiologic studies. Independent interpretation of the following test(s) in the Emergency Department X-Ray: My interpretation is No fracture seen on interpretation of x-ray. Test considered but Not performed: CT: Denies head trauma, CT scan not indicated. Care significantly affected by the following chronic conditions: Hypertension. Counseling: I had a detailed discussion with the patient and/or guardian regarding: the historical points, exam findings, and any diagnostic results supporting the discharge/admit diagnosis, radiology results, the need for outpatient follow up. Response to treatment: the patient's symptoms have markedly improved after treatment. 02/10 20:30 Order name: Shoulder Left (2 View) XRAY; Complete Time: 20:54 rt 02/10 20:30 Order name: Sling; Complete Time: 22:55 rt Administered Medications: 02/10 21:24 Drug: morphine IM 4 mg {Note: administered in RAC IV.} Route: IM; Site: Other; [facility] 22:55 Follow up: Response: No adverse reaction; Marked relief of symptoms kl Disposition Summary: 02/10/23 21:34 Discharge Ordered Location: Home rt Problem: new rt Symptoms: have improved rt Condition: Stable rt Diagnosis - Contusion of left shoulder rt Followup: rt - With: Private Physician - When: 2 - 3 days - Reason: Discharge Instructions: - Discharge Summary Sheet rt - Shoulder Pain rt Forms: - Medication Reconciliation Form rt - Thank You Letter rt - Antibiotic Education rt - Prescription Opioid Use rt - Patient Portal Instructions rt Signatures: Dispatcher [employer] Millie Foss RN RN eh3 Negrito Nassar MD MD rt Venus Peguero RN RN cm10 Maria Del Rosario Graham RN kl
--- NOTE | 2023-02-10 21:34 | ER ---
Nurse's Notes [facility] Name: Germania Bañuelos Age: 72 yrs Sex: Female : 1950 Arrival Date: 02/10/2023 Time: 19:36 Bed 9 Private MD: Diagnosis: Contusion of left shoulder Presentation: 02/10 19:53 Chief complaint: Patient states: Left shoulder pain S/P fall. Pt states that she cm10 tripped and fell on her granddaughters toy. Didn't hit head, no LOC. Coronavirus screen: Vaccine status: Patient reports receiving the 2nd dose of the covid vaccine. Client denies travel out of the [place] in the last 14 days. Ebola Screen: No symptoms or risks identified at this time. Initial Sepsis Screen: Does the patient meet any 2 criteria? No. Patient's initial sepsis screen is negative. Does the patient have a suspected source of infection? No. Patient's initial sepsis screen is negative. Risk Assessment: Do you want to hurt yourself or someone else? Patient reports no desire to harm self or others. Onset of symptoms was February 10, 2023. Care prior to arrival: Glucose check: 98. 19:53 Method Of Arrival: EMS: [facility] cm10 19:53 Acuity: MIGUEL 4 cm10 Triage Assessment: 19:55 General: Appears in no apparent distress. comfortable, Behavior is calm, cooperative. cm10 Historical: - Allergies: 19:55 Darvon; cm10 19:55 Demerol; cm10 19:55 Tamiflu; cm10 - PMHx: 19:55 COPD; Hyperlipidemia; Hypertension; Osteoporosis; shoulder pain; cm10 - PSHx: 19:55 neck; cm10 - Immunization history:: Adult Immunizations unknown. - Social history:: Smoking status: Patient/guardian denies using tobacco, Stopped _ months ago 6. - Family history:: not pertinent. Screenin:30 [facility] ED Fall Risk Assessment (Adult) Score/Fall Risk Level 0 - 2 = Low Risk. Abuse eh3 screen: Denies threats or abuse. Denies injuries from another. Nutritional screening: No deficits noted. Tuberculosis screening: No symptoms or risk factors identified. Assessment: 20:30 General: Appears in no apparent distress. uncomfortable, Behavior is cooperative, eh3 appropriate for age, anxious. Pain: Complains of pain in anterior aspect of left shoulder and posterior aspect of left shoulder Pain radiates to left arm Pain currently is 10 out of 10 on a pain scale. Neuro: Level of Consciousness is awake, alert, obeys commands, Oriented to person, place, time, situation. Cardiovascular: Capillary refill < 3 seconds Patient's skin is warm and dry. Respiratory: Airway is patent Respiratory effort is even, unlabored, Respiratory pattern is regular, symmetrical. GI: Abdomen is round non-distended. Derm: Skin is fragile. Musculoskeletal: Circulation, motion, and sensation intact. 21:01 Reassessment: Pt does not want IM injection, requests IV. Provider approved pt request eh3 for IV. 21:30 Reassessment: Patient appears in no apparent distress at this time. Patient and/or eh3 family updated on plan of care and expected duration. Pain level reassessed. Patient is alert, oriented x 3, equal unlabored respirations, skin warm/dry/pink. 22:55 Reassessment: Patient appears in no apparent distress at this time. Patient and/or kl family updated on plan of care and expected duration. Pain level reassessed. Vital Signs: 19:53 BP 178 / 70; Pulse 72; Resp 18; Temp 98.1(O); Pulse Ox 98% on R/A; Weight 44.91 kg; cm10 Height 4 ft. 11 in. ; Pain 9/10; 21:00 BP 176 / 71; Pulse 78; Resp 18; Pulse Ox 100% on R/A; eh3 22:55 BP 160 / 66; Pulse 74; Resp 18; Pulse Ox 100% on R/A; kl 19:53 Body Mass Index 20.00 (44.91 kg, 149.86 cm) cm10 19:53 Pain Scale: Adult cm10 ED Course: 19:50 Patient arrived in ED. cm10 19:55 Triage completed. cm10 19:56 Arm band placed on Patient placed in waiting room. cm10 20:22 Negrito Nassar MD is Attending Physician. rt 20:30 Patient has correct armband on for positive identification. Bed in low position. Call eh3 light in reach. Side rails up X2. Pulse ox on. NIBP on. 20:35 Millie Meyer, DEBRA is Primary Nurse. eh3 20:40 Shoulder Left (2 View) XRAY In Process Unspecified. EDMS 21:20 Inserted saline lock: 22 gauge in right antecubital area, using aseptic technique. [facility] 21:35 Report given to Ada Graham RN. [facility] 22:56 No provider procedures requiring assistance completed. IV discontinued, intact, kl bleeding controlled, No redness/swelling at site. Pressure dressing applied. Administered Medications: 21:24 Drug: morphine IM 4 mg {Note: administered in RAC IV.} Route: IM; Site: Other; [facility] 22:55 Follow up: Response: No adverse reaction; Marked relief of symptoms kl Outcome: 21:34 Discharge ordered by . rt 22:55 Discharged to home ambulatory. 22:55 Condition: stable 22:55 Discharge instructions given to patient, Instructed on discharge instructions, follow up and referral plans. Demonstrated understanding of instructions, follow-up care. 22:56 Patient left the ED. Signatures: Dispatcher [employer] EDMaria Del Rosario Pinto RN RN kl Hall, Erin, RN RN [facility] Negrito Nsasar MD MD rt Venus Peguero RN RN cm10 Corrections: (The following items were deleted from the chart) 21:48 21:20 Inserted saline lock: 22 gauge in right in left [email or web address] [id number]
[2023-02-10 23:19] VITALS: TEMP 98.1
[2023-02-10 23:21] VITALS: BP 160/66; O2SAT 100
== END 2023-02-10 22:56 | disposition home or self-care (01) ==
LOC: ER 19:36
DX: S40.012A Contusion of left shoulder, initial encounter (principal); I10 Essential (primary) hypertension; Z88.5 Allergy status to narcotic agent; Z88.8 Allergy status to other drugs, medicaments and biological substances
CPT/HCPCS: 96372; 99284

== ENCOUNTER 2024-11-09 09:54 | Inpatient (IN) | payer OTHER ==
--- OUTSIDE RECORDS SUMMARY | 2024-11-09 10:03 | XMS REPORT | Continuity of Care Document ---
Author Name Unknown Address [address] [facility]. [address] [place] [address] [facility] Address [address] [facility] [address] [place] [address] Care Team Providers Care Personalized Living Manager Name Role Phone JORGE ESPINOZA Primary Care Physician Unavailab Denny Nolen Attending Clinician Unavailable LISA BATISTA Attending Clinician Unavailable LISA BATISTA Attending Clinician Unavailable Ariane Thomas Attending Clinician Unavailable GREYSON MARTE Attending Clinician Unavailab Linwood ARROYO, Pati Attending Clinician [phone] Doctor Unassigned, [place] Attending Clinician U tim Martin MD, Pati Attending Clinician [phone] PATI MARTIN Attending Clinician Unavailable SHERIDAN SAUNDERS Attending Clinician Unavailab desiree Saunders METAL PATTERNMAKER APPRENTICE, Sheridan Foley Attending Clinician [phone] Sara NGUYENW, Elizabet Rios Attending Clinician U tim Cedeno METAL PATTERNMAKER APPRENTICE, Marlyn F Attending Clinician [phone] Dwight Charles MD Attending Clinician [phone] Chad Fitzgerald MD Attending Clinician [phone] DICDARRELL Attending Clinician Unavailab Nemesio ARROYO, Greyson Wisdom Attending Clinician [phone] Nidia Nolasco CRNA Attending Clinician [phone] Prabhakar Sandoval MD Attending Clinician [phone] Only, [facility] Test Attending Clinician Unavailable Nurse, [facility] General Surgery Attending Clinician U tim Rosado, [facility] Lab Main Attending Clinician UnavailJORGE Kirk Attending Clinician Unavailable Marcia Attending Clinician Unavailable LISA BATISTA Admitting Clinician Unavailable GREYSON MARTE Admitting Clinician Unavailab DWIGHT Dimas Admitting Clinician Unavailable Dwight Charles MD Admitting Clinician [phone] CANDICE Admitting Clinician UnavailGreyson Ramos MD Admitting Clinician [phone] JORGE ESPINOZA Admitting Clinician Unavailable Marcia Admitting Clinician Unavailable Payers Payer Name Policy Type Policy Number Effective Date Expirati on Date Source [employer] MEDICARE ADVANTAGE [id number] 2022 00:00:00 [employer] CHOICE [id number] 2019 00:00:00 [facility] AARP MCR Advantage (HMO-POS) 53 [id number] 2023 00:00:00 [facility] MEDICARE SOLUTIONS 53 [id number] 2020 00:00:00 [facility] - [facility] - [facility]IONAL (MEDICARE REPLACEMENT PPO) [id number] [place] B-[place]: [employer] [id number] 2011 00:00:00 Problems Condition Name Condition Details Condition Category Status Onset Date Resolution Date Last Treatment Date Treating Clinician Comments Source 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 on 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 on Disease Active 1-18 00:00: 00 [facility] Neck pain Neck pain Disease Active 1-10 00:00: 00 [facility] Carpal tunnel syndrome (disorder) Carpal tunnel syndrome (disorder) Active Problem 08/15/2022 [facility] Problem Active 2022-08-15 23:08:19 Yari Bose Low back pain Low back pain, unspecifie d Problem [facility] [id number] Bilateral carpal tunnel syndrome Problem [facility] [id number] PAD (periphera l artery disease) Problem [facility] [id number] Mixed hyperlipid emia Problem [facility] [id number] Low back pain Problem [facility] COPD - Chronic obstructiv e pulmonary disease COPD (chronic obstructiv e pulmonary disease) Problem [facility] [id number] Lymphocyto sis Problem [facility] [id number] Other chronic pain Problem [facility] Cervical myelopathy (disorder) Cervical myelopathy (disorder) Active Problem 08/15/2022 [facility] Problem Active 2022-08-15 23:08:19 Yari Bose [id number] Malignant hypertensi ve urgency Problem [facility] Hypertensi on Hypertensi on Problem [facility] [id number] Coronary artery disease involving [place] coronary artery of [place] heart without angina pectoris Problem [facility] [id number] 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 Problem [facility] [id number] Tobacco use disorder Problem [facility] Cervical radiculopa thy (disorder) Cervical radiculopa thy (disorder) Active Problem 08/15/2022 [facility] Problem Active 2022-08-15 23:08:19 Memkajal paramjit Bose No known active problems No known active problems Disease [facility] Allergies, Adverse Reactions, Alerts Allergy Name Allergy Type Status Severity Reaction(s) Onset Date Inactive Date Treating Clinician Comments Source PRAVASTA TIN DRUG INGREDI Active NAUSEA ONLY 08-05 00:00: 00 [facility] Pravasta tin Drug Allergy Active Nausea Only 08-05 00:00: 00 [facility] OSELTAMI VIR PHOSPHAT E DRUG INGREDI Active Dizziness 11-20 00:00: 00 [facility] Oseltami vir Phosphat e Propensi ty to adverse reaction s Active Dizziness 11-20 00:00: 00 [facility] PROPOXYP HENE HCL DRUG INGREDI Active Hallucinates 09-21 00:00: 00 [facility] MEPERIDI NE HCL DRUG INGREDI Active Hallucinates 09-21 00:00: 00 [facility] Propoxyp hene Hcl Propensi ty to adverse reaction s Active Hallucinatio ns 09-21 00:00: 00 [facility] Meperidi ne Hcl Propensi ty to adverse reaction s Active Hallucinatio ns 09-21 00:00: 00 [facility] oseltami vir oseltami vir Active Unknown [facility] meperidi ne meperidi ne Active Unknown [facility] [id number] Drug allergy Active Unknown [facility] Social History Social Habit Start Date Stop Date Quantity Comments Source Sex Assigned At [facility] History of tobacco use Passive smoker [facility] History SDOH Social Connections Phone [facility] History SDOH Social Connections Get Together [facility] History SDOH Social Connections Caodaism [facility] History SDOH Social Connections Membership [facility] History SDOH Social Connections Meetings [facility] History SDOH Food Scarcity [facility] Gender identity [facility] Exposure to SARS-CoV-2 (event) 2022-09-13 00:00:00 2022-09-23 10:11:00 Not sure [facility] Tobacco use and exposure 2022-07-28 00:00:00 2022-07-28 00:00:00 Former smokeless tobacco user [facility] History SDOH Alcohol Frequency 2022-07-28 00:00:00 2022-07-28 00:00:00 1 [facility] History SDOH Alcohol Std Drinks 2022-07-28 00:00:00 2022-07-28 00:00:00 0 [facility] History SDOH Alcohol Binge 2022-07-28 00:00:00 2022-07-28 00:00:00 1 [facility] History SDOH Social Connections Living 2022-07-28 00:00:00 2022-07-28 00:00:00 4 [facility] History SDOH Physical Activity DPW 2022-07-28 00:00:00 2022-07-28 00:00:00 0 [facility] History SDOH Physical Activity MPS 2022-07-28 00:00:00 2022-07-28 00:00:00 0 [facility] History SDOH Financial 2022-07-28 00:00:00 2022-07-28 00:00:00 5 [facility] History SDOH Food Worry 2022-07-28 00:00:00 2022-07-28 00:00:00 1 [facility] History SDOH Transport Med 2022-07-28 00:00:00 2022-07-28 00:00:00 2 [facility] History SDOH Transport Non-Med 2022-07-28 00:00:00 2022-07-28 00:00:00 2 [facility] History of Social function 2019-12-05 00:00:00 2019-12-05 00:00:00 [facility] Smoking Status Start Date Stop Date Source Unknown if ever smoked [facility] Former Smoker 2023-08-17 00:00:00 2023-08-17 00:00:00 [facility] Never Smoker [facility] Smokes tobacco daily 2022-07-28 00:00:00 [facility] Medications Ordered Medication Name Filled Medication Name Start Date Stop Date Current Medication? Ordering Clinician Indication Dosage Frequency Signature (SIG) Comments Components Source polyethylen e glycol 3350 17 gram powder 08-14 00:00: 00 09-14 05:59 :00 No [id number] 17g Take 1 Packet by mouth in the morning for 30 days. [facility] lisinopril (ZESTRIL) 5 mg tablet 08-13 17:55: 41 Yes 5mg Take 5 mg by mouth daily. [facility] atenolol (TENORMIN) 25 mg tablet 08-13 17:55: 41 Yes 25mg Take 25 mg by mouth 2 (two) times daily. [facility] ISOSORBIDE ORAL 08-13 17:55: 41 Yes 30mg Take 30 mg by mouth daily. [facility] amLODIPine (NORVASC) 10 mg tablet 08-13 17:55: 41 Yes 10mg Take 10 mg by mouth daily. [facility] POTASSIUM GLUCONATE ORAL 08-13 17:55: 41 Yes 2{tbl} Take 2 Tabs by mouth 2 (two) times daily. [facility] metoprolol tartrate 25 mg tablet 08-13 17:55: 41 Yes 25mg Take 25 mg by mouth 2 (two) times daily. [facility] clopidogrel (PLAVIX) 75 mg tablet 08-13 13:03: 46 08-13 00:00 :00 No 75mg Take 75 mg by mouth daily. [facility] aspirin 81 mg tablet 08-13 13:03: 46 08-13 00:00 :00 No 81mg Take 81 mg by mouth daily. [facility] lisinopril (ZESTRIL) 5 mg tablet 08-13 13:03: 42 Yes 5mg Take 5 mg by mouth daily. [facility] atenolol (TENORMIN) 25 mg tablet 08-13 13:03: 42 Yes 25mg Take 25 mg by mouth 2 (two) times daily. [facility] ISOSORBIDE ORAL 08-13 13:03: 42 Yes 30mg Take 30 mg by mouth daily. [facility] amLODIPine (NORVASC) 10 mg tablet 08-13 13:03: 42 Yes 10mg Take 10 mg by mouth daily. [facility] metoprolol tartrate 25 mg tablet 08-13 13:03: 42 Yes 25mg Take 25 mg by mouth 2 (two) times daily. [facility] methocarbam oL 1,000 mg Tab 08-13 00:00: 00 11-12 04:59 :00 No [id number] 1000mg Take 1,000 mg by mouth 4 (four) times daily for 90 days. [facility] gabapentin 300 mg capsule 08-13 00:00: 00 11-12 04:59 :00 No [id number] 300mg Take 1 capsule by mouth in the morning and 1 capsule at noon and 1 capsule in the evening. Do all this for 90 days. [facility] KCL (KLOR-CON M20) tablet 40 mEq 08-12 02:00: 00 08-12 02:25 :00 No 40meq 40 mEq, Oral, ONCE, 1 dose, On Tue08/11/22 at 2000, Routine [facility] KCL (KLOR-CON M20) tablet 40 mEq 08-11 13:30: 00 08-11 14:59 :00 No 40meq 40 mEq, Oral, ONCE, 1 dose, On Tue08/11/22 at 0730, Routine [facility] enoxaparin (LOVENOX) injection 40 mg 08-06 15:45: 00 Yes 40mg 40 mg, Subcutaneo us, Q24H, First dose on Tue08/06/22 at 0945, Until Discontinu ed, Routine [facility] polyethylen e glycol 3350 powder 17 g 08-06 15:00: 00 Yes 17g 17 g, Oral, DAILY, First dose on Tue08/06/22 at 0900, Until Discontinu ed, Routine [facility] morpHINE (2 mg/mL) injection 4 mg 08-06 14:45: 00 Yes 4mg 4 mg, Slow IV Push, Q3HPRN, Starting on Tue08/06/22 at 0845, Until Discontinu ed, Routine, breakthrou gh pain scale 4-10 [facility] sennosides (SENOKOT) tablet 8.6 mg 08-06 14:45: 00 Yes 8.6mg 8.6 mg, Oral, BID, First dose on Tue08/06/22 at 0845, Until Discontinu ed, Routine [facility] oxyCODONE immediate release tablet 5 mg 08-06 14:40: 41 Yes 5mg 5 mg, Oral, Q4HPRN, Starting on Tue08/06/22 at 0840, Until Discontinu ed, Routine, Pain (scale 7-10)
F aculty member approving Restricted medication : PATI MARTIN [facility] proMETHazin e (PHENERGAN) 12.5 mg in NS 50 mL IV piggyback (CNR) 08-06 04:15: 00 08-06 04:06 :00 No 12.5mg 12.5 mg, IV Piggyback, at 200 mL/hr Administer over 15 Minutes, ONCE, 1 dose, On Tue08/05/22 at 2215, Routine [facility] ceFAZolin (ANCEF) 2,000 mg in NaCl 0.9% (NS) 100 mL MINI-BAG 08-06 02:00: 00 08-11 01:59 :00 No 2000mg 2,000 mg, Intravenou s, Q8H ABX, 15 doses, First dose on Tue08/05/22 at 2000, Last dose on Tue08/10/22 at 1200, Administer over 30 Minutes, 100 mL
Reas on for Anti-Infec tive: Surgical Prophylaxi s
Surgi prashant Prophylaxi s: Neurosurge ry
Dura tion of therapy: within 24 hours of surgery [facility] acetaminoph en (TYLENOL) tablet 650 mg 08-05 23:00: 00 Yes 650mg 650 mg, Oral, Q8H, First dose on Lisa 08/05/22 at 1700, Until Discontinu ed, Routine [facility] HYDROcodone -acetaminop hen (NORCO 5) 5-325 mg tablet 1 tablet 08-05 22:45: 00 08-05 23:32 :00 No 1{tbl} 1 tablet, Oral, ONCE, 1 dose, On Lisa 08/05/22 at 1645, Routine, PACU [facility] HYDROmorphO ne (DILAUDID) injection 0.2 mg 08-05 22:41: 50 08-06 00:08 :30 No .2mg 0.2 mg, Slow IV Push, Q5MIN PRN, 10 doses, Starting on Lisa 08/05/22 at 1641, Until Lisa 08/05/22 at 1808, Routine, Pain (scale 7-10), PACU
Us e approved by (Faculty): PACU USE -ANESTHESI A SERVICE-HY DROMORPHON E INJECTIONS [facility] vancomycin (VANCOCIN) injection 08-05 21:55: 00 Yes PRN, Starting on Lisa 08/05/22 at 1555, Until Discontinu ed, LASHONDA, Intra-op [facility] lidocaine-e pinephrine (XYLOCAINE WITH EPINEPHRINE ) 1 %-1:100,000 injection 08-05 19:39: 00 Yes PRN, Starting on Lisa 08/05/22 at 1339, Until Discontinu ed, Routine, Intra-op [facility] enoxaparin (LOVENOX) injection 40 mg 08-01 15:00: 00 08-05 00:00 :23 No 40mg 40 mg, Subcutaneo us, Q24H, First dose on Tue08/01/22 at 0900, Until Discontinu ed, Routine [facility] ondansetron (ZOFRAN (PF)) injection 4 mg 07-31 19:12: 46 Yes 4mg 4 mg, Slow IV Push, Q6HPRN, Nausea and Vomiting (N/V), Starting on 07/31/22 at 1312
Do ses of ondansetro n 16 mg and above need to be administer ed via IV piggyback. For Dose >=24mg ECG monitoring is advisable.
[facility] tc 99m-labeled red blood cells (ULTRATAG RBC) injection 25.4 millicurie 07-30 15:45: 00 07-30 15:36 :00 No [id number] 25.4mCi 25.4 millicurie , Intravenou s, ONCE, 1 dose, On Tue07/30/22 at 0945, Routine [facility] perflutren lipid microsphere s (DEFINITY) injection 2 mL 07-29 20:00: 00 07-29 20:00 :00 No [id number] 2mL 2 mL, IV Push, ONCE, 1 dose, On Tue07/29/22 at 1400, Routine [facility] regadenoson (LEXISCAN) injection 0.4 mg 07-29 16:15: 00 07-29 15:36 :00 No [id number] .4mg 0.4 mg, IV Push, ONCE, 1 dose, On Tue07/29/22 at 1015, Routine
bridge crew member approving Restricted medication : MARJORIE MARIA [facility] tc 99m-tetrofo smin (MYOVIEW) injection 15.9 millicurie 07-29 15:45: 00 07-29 15:37 :00 No [id number] 15.9mCi 15.9 millicurie , Intravenou s, ONCE, 1 dose, On Tue07/29/22 at 0945, Routine [facility] cholecalcif ilia (vitamin D3) tablet 1,000 Units 07-28 15:00: 00 Yes 1000U 1,000 Units, Oral, DAILY, First dose on Tue07/28/22 at 0900, Until Discontinu ed [facility] enoxaparin (LOVENOX) injection 40 mg 07-28 15:00: 00 07-29 04:29 :03 No 40mg 40 mg, Subcutaneo us, DAILY, First dose on Tue07/28/22 at 0900, Until Discontinu ed, Routine [facility] gabapentin (NEURONTIN) capsule 300 mg 07-28 02:00: 00 Yes 300mg 300 mg, Oral, TID, First dose on Tue07/27/22 at 1999, Until Discontinu ed, Routine [facility] famotidine (PEPCID AC) tablet 20 mg 07-28 02:00: 00 Yes 20mg 20 mg, Oral, BID, First dose on Tue07/27/22 at 1999, Until Discontinu ed, Routine [facility] docusate (COLACE) capsule 100 mg 07-28 02:00: 00 Yes 100mg 100 mg, Oral, BID, First dose on Tue07/27/22 at 2000, Until Discontinu ed, Routine [facility] metoprolol tartrate (LOPRESSOR) tablet 25 mg 07-28 02:00: 00 07-28 23:50 :55 No 25mg 25 mg, Oral, BID, First dose on Tue07/27/22 at 1999, Until Discontinu ed, Routine [facility] HYDROcodone -acetaminop hen (NORCO 5) 5-325 mg tablet 1 tablet 07-28 01:49: 15 08-06 14:41 :49 No 1{tbl} 1 tablet, Oral, Q6HPRN, Starting on Tue07/27/22 at 1949, Until Tue08/06/22 at 0841, Routine, Pain (scale 4-6) [facility] morpHINE (2 mg/mL) injection 2 mg 07-28 01:47: 51 08-06 14:41 :49 No 2mg 2 mg, Slow IV Push, Q2HPRN, Starting on Tue07/27/22 at 1947, Until Tue08/06/22 at 0841, Routine, Pain (scale 7-10) [facility] bisacodyL (DULCOLAX) suppository 10 mg 07-28 01:45: 59 Yes 10mg 10 mg, Rectal, QHSPRN, Starting on Tue07/27/22 at 1945, Until Discontinu ed, Routine, Constipati on [facility] NaCl 0.9% (NS) injection 5 mL 07-28 01:45: 59 Yes 5mL 5 mL, Slow IV Push, PRN - SEE INSTRUCTIO NS, Starting on Tue07/27/22 at 1945, Until Discontinu ed, 10 mL [facility] lisinopril (ZESTRIL) 5 mg tablet 07-27 19:48: 46 Yes 5mg Take 5 mg by mouth daily. [facility] atenolol (TENORMIN) 25 mg tablet 07-27 19:48: 46 Yes 25mg Take 25 mg by mouth 2 (two) times daily. [facility] ISOSORBIDE ORAL 07-27 19:48: 46 Yes 30mg Take 30 mg by mouth daily. [facility] clopidogrel (PLAVIX) 75 mg tablet 07-27 19:48: 46 Yes 75mg Take 75 mg by mouth daily. [facility] amLODIPine (NORVASC) 10 mg tablet 07-27 19:48: 46 Yes 10mg Take 10 mg by mouth daily. [facility] aspirin 81 mg tablet 07-27 19:48: 46 Yes 81mg Take 81 mg by mouth daily. [facility] metoprolol tartrate 25 mg tablet 07-27 19:48: 46 Yes 25mg Take 25 mg by mouth 2 (two) times daily. [facility] ketorolac (TORADOL) injection 30 mg 07-27 18:30: 00 07-27 18:18 :00 No 30mg 30 mg, Intramuscu lar, ONCE, 1 dose, On Tue07/27/22 at 1230, Routine [facility] dexamethaso ne (DECADRON PHOSPHATE) injection 10 mg - 18:30: 00 07-27 18:17 :00 No 10mg 10 mg, Oral, ONCE, 1 dose, On Tue07/27/22 at 1230, Routine [facility] methocarbam oL (ROBAXIN) tablet 1,000 mg 07-27 18:00: 00 Yes 1000mg 1,000 mg, Oral, QID, First dose on Tue07/27/22 at 1200, Until Discontinu ed, Routine [facility] Acetaminoph en-Codeine 300-30 MG Acetaminoph en-Codeine 300-30 MG 09-29 00:00: 00 No 1{table t_as_ne eded} Acetaminop hen-Codein e 300-30 MG lisinopril (ZESTRIL) 5 mg tablet 12-04 20:06: 53 Yes 5mg Take 5 mg by mouth daily. [facility] atenolol (TENORMIN) 25 mg tablet 12-04 20:06: 53 Yes 25mg Take 25 mg by mouth 2 (two) times daily. [facility] ISOSORBIDE ORAL 12-04 20:06: 53 Yes 30mg Take 30 mg by mouth daily. [facility] clopidogrel (PLAVIX) 75 mg tablet 12-04 20:06: 53 Yes 75mg Take 75 mg by mouth daily. [facility] amLODIPine (NORVASC) 10 mg tablet 12-04 20:06: 53 Yes 10mg Take 10 mg by mouth daily. [facility] POTASSIUM GLUCONATE ORAL 12-04 20:06: 53 Yes 2{tbl} Take 2 Tabs by mouth 2 (two) times daily. [facility] aspirin 81 mg tablet 12-04 20:06: 53 Yes 81mg Take 81 mg by mouth daily. [facility] metoprolol tartrate 25 mg tablet 12-04 20:06: 53 Yes 25mg Take 25 mg by mouth 2 (two) times daily. [facility] ergocalcife rol, vitamin D2, (VITAMIN D ORAL) 12-04 20:06: 53 Yes Take by mouth. [facility] lactated ringers IV infusion 500 mL 12-04 17:30: 00 Yes 500mL at 75 mL/hr, 500 mL, IV Infusion, CONTINUOUS , Starting Tue12/05/19 at 1230, Until Discontinu ed, Routine, PACU [facility] sodium chloride (NS) injection 12-04 17:03: 00 Yes PRN, Starting Tue12/05/19 at 1203, Until Discontinu ed, Routine, [facility] (XYLOCAINE W/EPINEPHRI NE) 2 %-1:200,000 injection 12-04 17:03: 00 Yes PRN, Starting Tue12/05/19 at 1203, Until Discontinu ed, Routine, Intra-op [facility] neomycin-po lymyxin-dex amethasone (MAXITROL) 3.5 mg/g-10,000 unit/g-0.1 % ophthalmic ointment 12-04 17:01: 00 Yes PRN, Starting Tue12/05/19 at 1201, Until Discontinu ed, Routine, Intra-op [facility] gentamicin injection 12-04 17:00: 00 Yes PRN, Starting Tue12/05/19 at 1200, Until Discontinu ed, LASHONDA, Intra-op [facility] water for irrigation irrigation solution 12-04 16:55: 00 Yes PRN, Starting Tue12/05/19 at 1155, Until Discontinu ed, Routine, Intra-op [facility] Hyaluronida se, Human Recomb. (HYLENEX) injection 12-04 16:50: 00 Yes PRN, Starting Tue12/05/19 at 1150, Until Discontinu ed, Routine, Intra-op [facility] propofol IV infusion 12-04 16:50: 00 12-04 17:11 :01 No Intravenou s, ONCE INTRA PROCEDURE, Starting Tue12/05/19 at 1150, Until Tue12/05/19 at 1211, Routine, Intra-op [facility] remifentani l (ULTIVA) injection 12-04 16:50: 00 12-04 17:11 :01 No Intravenou s, ONCE INTRA PROCEDURE, Starting Tue12/05/19 at 1150, Until Tue12/05/19 at 1211, Routine, Intra-op [facility] lactated ringers IV infusion 12-04 16:44: 00 12-04 17:11 :01 No IV Infusion, CONTINUOUS PRN, Starting Tue12/05/19 at 1144, Until Tue12/05/19 at 1211, Routine, Intra-op [facility] EPINEPHrine 1:1,000 (1 mg/mL) (ADRENALIN) injection 12-04 16:36: 00 Yes PRN, Starting Tue12/05/19 at 1136, Until Discontinu ed, Routine, Intra-op [facility] DUOVISC (DUOVISC VISCO ELASTIC) 3 %-4 %(0.5 mL) 1 % (0.55 mL) intraocular injection 12-04 16:36: 00 Yes PRN, Starting Tue12/05/19 at 1136, Until Discontinu ed, Routine, Intra-op [facility] dexamethaso ne (DECADRON PHOSPHATE) injection 12-04 16:36: 00 Yes PRN, Starting Tue12/05/19 at 1136, Until Discontinu ed, Routine, Intra-op [facility] ceFAZolin (ANCEF) injection 12-04 16:36: 00 Yes PRN, Starting Tue12/05/19 at 1136, Until Discontinu ed, LASHONDA, Intra-op [facility] carbachoL (MIOSTAT) 0.01 % intraocular injection 12-04 16:36: 00 Yes PRN, Starting Tue12/05/19 at 1136, Until Discontinu ed, Routine, Intra-op [facility] bupivacaine (preserv free) (SENSORCAIN E MPF) 0.75 % (7.5 mg/mL) injection 12-04 16:35: 00 Yes PRN, Starting Tue12/05/19 at 1135, Until Discontinu ed, Routine, Intra-op [facility] balanced salt irrig soln comb1 (BSS PLUS) ophthalmic solution 500 mL bag 12-04 16:35: 00 Yes PRN, Starting Tue12/05/19 at 1135, Until Discontinu ed, Routine, Intra-op [facility] mydriatic #5 ophthalmic solution 0.5 mL syringe 12-04 15:30: 00 12-04 15:39 :00 No .5mL 0.5 mL, Left Eye, ONCE, 1 dose, Tue12/05/19 at 1030, Routine, DSU Pre-op [facility] lactated ringers IV infusion 500 mL 12-04 15:30: 00 12-04 15:39 :00 No 500mL at 20 mL/hr, 500 mL, IV Infusion, ONCE, 1 dose, Tue12/05/19 at 1030, Routine, DSU Pre-op [facility] clopidogrel (PLAVIX) 75 mg tablet 12-03 13:18: 00 Yes 75mg Take 75 mg by mouth daily. [facility] lisinopril (ZESTRIL) 5 mg tablet 11-20 18:51: 29 Yes 5mg Take 5 mg by mouth daily. [facility] atenolol (TENORMIN) 25 mg tablet 11-20 18:51: 29 Yes 25mg Take 25 mg by mouth 2 (two) times daily. [facility] ISOSORBIDE ORAL 11-20 18:51: 29 Yes 30mg Take 30 mg by mouth daily. [facility] amLODIPine (NORVASC) 10 mg tablet 11-20 18:51: 29 Yes 10mg Take 10 mg by mouth daily. [facility] POTASSIUM GLUCONATE ORAL 11-20 18:51: 29 Yes 2{tbl} Take 2 Tabs by mouth 2 (two) times daily. [facility] aspirin 81 mg tablet 11-20 18:51: 29 Yes 81mg Take 81 mg by mouth daily. [facility] metoprolol tartrate 25 mg tablet 11-20 18:51: 29 Yes 25mg Take 25 mg by mouth 2 (two) times daily. [facility] ergocalcife rol, vitamin D2, (VITAMIN D ORAL) 11-20 18:51: 29 Yes Take by mouth. [facility] clopidogrel (PLAVIX) 75 mg tablet 11-20 18:51: 29 Yes 75mg Take 75 mg by mouth daily. [facility] lactated ringers IV infusion 1,000 mL 11-20 16:00: 00 Yes 1000mL at 75 mL/hr, 1,000 mL, IV Infusion, CONTINUOUS , Starting Tue11/21/19 at 1100, Until Discontinu ed, Routine, PACU [facility] water for irrigation irrigation solution 11-20 14:30: 00 Yes PRN, Starting Tue11/21/19 at 0930, Until Discontinu ed, Routine, Intra-op [facility] sodium chloride (NS) injection 11-20 14:29: 00 Yes PRN, Starting Tue11/21/19 at 0929, Until Discontinu ed, Routine, Intra-op [facility] neomycin-po lymyxin-dex amethasone (MAXITROL) 3.5 mg/g-10,000 unit/g-0.1 % ophthalmic ointment 11-20 14:29: 00 Yes PRN, Starting Tue11/21/19 at 0929, Until Discontinu ed, Routine, Intra-op [facility] lidocaine-e pinephrine (XYLOCAINE W/EPINEPHRI NE) 2 %-1:200,000 injection 11-20 14:29: 00 Yes PRN, Starting Tue11/21/19 at 0929, Until Discontinu ed, Routine, Intra-op [facility] Hyaluronida se, Human Recomb. (HYLENEX) injection 11-20 14:28: 00 Yes PRN, Starting Tue11/21/19 at 0928, Until Discontinu ed, Routine, Intra-op [facility] gentamicin injection 11-20 14:28: 00 Yes PRN, Starting Tue11/21/19 at 0928, Until Discontinu ed, LASHONDA, Intra-op [facility] EPINEPHrine 1:1,000 (1 mg/mL) (ADRENALIN) injection 11-20 14:27: 00 Yes PRN, Starting Tue11/21/19 at 926, Until Discontinu ed, Routine, Intra-op [facility] DUOVISC (DUOVISC VISCO ELASTIC) 3 %-4 %(0.5 mL) 1 % (0.55 mL) intraocular injection 11-20 14:27: 00 Yes PRN, Starting Tue11/21/19 at 926, Until Discontinu ed, Routine, Intra-op [facility] dexamethaso ne (DECADRON PHOSPHATE) injection 11-20 14:27: 00 Yes PRN, Starting Tue11/21/19 at 926, Until Discontinu ed, Routine, Intra-op [facility] ceFAZolin (ANCEF) injection 11-20 14:26: 00 Yes PRN, Starting Tue11/21/19 at 09, Until Discontinu ed, LASHONDA, Intra-op [facility] carbachoL (MIOSTAT) 0.01 % intraocular injection 11-20 14:26: 00 Yes PRN, Starting Tue11/21/19 at 09, Until Discontinu ed, Routine, Intra-op [facility] bupivacaine (preserv free) (SENSORCAIN E MPF) 0.75 % (7.5 mg/mL) injection 11-20 14:25: 00 Yes PRN, Starting Tue11/21/19 at 0925, Until Discontinu ed, Routine, Intra-op [facility] balanced salt irrig soln comb1 (BSS PLUS) ophthalmic solution 500 mL bag 11-20 14:25: 00 Yes PRN, Starting Tue11/21/19 at 09, Until Discontinu ed, Routine, Intra-op [facility] lactated ringers IV infusion 1,000 mL 11-20 14:15: 00 11-20 15:14 :00 No 1000mL at 50 mL/hr, 1,000 mL, IV Infusion, CONTINUOUS , Starting Tue11/21/19 at 0915, Until Tue11/21/19 at 1014, Routine, DSU Pre-op [facility] lisinopril (ZESTRIL) 5 mg tablet 11-19 13:44: 30 Yes 5mg Take 5 mg by mouth daily. [facility] ISOSORBIDE ORAL 11-19 13:44: 30 Yes 30mg Take 30 mg by mouth daily. [facility] clopidogrel (PLAVIX) 75 mg tablet 11-19 13:44: 30 Yes 75mg Take 75 mg by mouth daily. [facility] amLODIPine (NORVASC) 10 mg tablet 11-19 13:44: 30 Yes 10mg Take 10 mg by mouth daily. [facility] metoprolol tartrate 25 mg tablet 11-19 13:44: 29 Yes 25mg Take 25 mg by mouth 2 (two) times daily. [facility] ergocalcife rol, vitamin D2, (VITAMIN D ORAL) 11-19 13:44: 29 Yes Take by mouth. [facility] amLODIPine (NORVASC) 10 mg tablet 09-21 18:54: 43 Yes 10mg Take 10 mg by mouth daily. [facility] POTASSIUM GLUCONATE ORAL 09-21 18:54: 43 Yes 2{tbl} Take 2 Tabs by mouth 2 (two) times daily. [facility] aspirin 81 mg tablet 09-21 18:54: 43 Yes 81mg Take 81 mg by mouth daily. [facility] ISOSORBIDE ORAL 09-21 18:54: 42 Yes 30mg Take 30 mg by mouth daily. [facility] clopidogrel (PLAVIX) 75 mg tablet 09-21 18:54: 42 Yes 75mg Take 75 mg by mouth daily. [facility] atenolol (TENORMIN) 25 mg tablet 09-21 18:54: 42 Yes 25mg Take 25 mg by mouth 2 (two) times daily. [facility] lisinopril (ZESTRIL) 5 mg tablet 09-21 18:54: 41 Yes 5mg Take 5 mg by mouth daily. [facility] Alendronate Sodium 70 MG Alendronate Sodium 70 MG No Alendronat e Sodium 70 MG Gabapentin 300 MG Gabapentin 300 MG No 1{capsu le} BID Gabapentin 300 MG Xopenex 1.25 MG/3ML Xopenex 1.25 MG/3ML No 3{ml} QD Xopenex 1.25 MG/3ML Meloxicam 7.5 MG Meloxicam 7.5 MG No 1{table t} Meloxicam 7.5 MG Crestor 40 MG Crestor 40 MG No 1{table t} QD Crestor 40 MG Metoprolol Succinate ER 50 MG Metoprolol Succinate ER 50 MG No 1{table t} QD Metoprolol Succinate ER 50 MG Rosuvastati n Calcium 40 MG Rosuvastati n Calcium 40 MG No Rosuvastat in Calcium 40 MG traMADol HCl 50 MG traMADol HCl 50 MG No 1{table t_as_ne eded} TID traMADol HCl 50 MG Vital Signs Vital Name Observation Time Observation Value Comments S ource height 2023-10-13 10:00:00 60 [in_i] Commo n [facility] weight 2023-10-13 10:00:00 98.8 [lb_av] Com [facility] temperature 2023-10-13 10:00:00 97.7 [degF] Com [facility] bmi 2023-10-13 10:00:00 19.29 kg/m2 Comm on [facility] oximetry 2023-10-13 10:00:00 98 % Commo n [facility] respiratory rate 2023-10-13 10:00:00 18 /min [facility] blood pressure systolic 2023-10-13 10:00:00 139 mm[Hg] [facility] blood pressure diastolic 2023-10-13 10:00:00 70 mm[Hg] [facility] height 2023-05-25 11:30:00 60 [in_i] Commo n [facility] weight 2023-05-25 11:30:00 108.6 [lb_av] Co mmon [facility] temperature 2023-05-25 11:30:00 97.7 [degF] Com mon [facility] bmi 2023-05-25 11:30:00 21.21 kg/m2 Comm on [facility] oximetry 2023-05-25 11:30:00 96 % Commo n [facility] respiratory rate 2023-05-25 11:30:00 16 /min Common [facility] blood pressure systolic 2023-05-25 11:30:00 126 mm[Hg] [facility] blood pressure diastolic 2023-05-25 11:30:00 68 mm[Hg] [facility] Systolic blood pressure 2022-09-23 17:03:00 139 mm[Hg] [facility] Diastolic blood pressure 2022-09-23 17:03:00 79 mm[Hg] [facility] Heart rate 2022-09-23 17:03:00 120 /min [facility] Body height 2022-09-23 17:03:00 152.4 cm [facility] Body weight 2022-09-23 17:03:00 43.001 kg [facility] BMI 2022-09-23 17:03:00 18.51 kg/m2 [facility] Systolic blood pressure 2022-08-13 17:05:00 155 mm[Hg] [facility] Diastolic blood pressure 2022-08-13 17:05:00 74 mm[Hg] [facility] Heart rate 2022-08-13 17:05:00 107 /min [facility] Body temperature 2022-08-13 17:05:00 36.78 Gabbi [facility] Respiratory rate 2022-08-13 17:05:00 15 /min [facility] Oxygen saturation in Arterial blood by Pulse oximetry 2022-08-13 17:05:00 99 /min [facility] Body weight 2022-08-04 15:00:00 43.5 kg [facility] BMI 2022-08-04 15:00:00 17.54 kg/m2 [facility] Body height 2022-07-27 16:36:00 157.5 cm [facility] Systolic blood pressure 2022-08-05 23:00:00 155 mm[Hg] [facility] Diastolic blood pressure 2022-08-05 23:00:00 70 mm[Hg] [facility] Respiratory rate 2022-08-05 23:00:00 18 /min [facility] Oxygen saturation in Arterial blood by Pulse oximetry 2022-08-05 23:00:00 98 /min [facility] Body temperature 2022-08-05 22:53:00 35.72 Gabbi [facility] Heart rate 2022-08-05 22:50:00 72 /min [facility] Body weight 2022-08-04 15:00:00 43.5 kg [facility] BMI 2022-08-04 15:00:00 17.54 kg/m2 [facility] Body height 2022-07-27 16:36:00 157.5 cm [facility] height 2022-06-25 08:40:00 60 [in_i] Commo n [facility] weight 2022-06-25 08:40:00 97.7 [lb_av] Com [facility] temperature 2022-06-25 08:40:00 97.3 [degF] Com [facility] bmi 2022-06-25 08:40:00 19.08 kg/m2 Comm on [facility] oximetry 2022-06-25 08:40:00 99 % Commo n [facility] respiratory rate 2022-06-25 08:40:00 18 /min [facility] blood pressure systolic 2022-06-25 08:40:00 124 mm[Hg] [facility] blood pressure diastolic 2022-06-25 08:40:00 64 mm[Hg] [facility] height 2022-03-25 10:20:00 60 [in_i] Commo n [facility] weight 2022-03-25 10:20:00 99.8 [lb_av] Com [facility] temperature 2022-03-25 10:20:00 97.7 [degF] Com [facility] bmi 2022-03-25 10:20:00 19.49 kg/m2 Comm on [facility] oximetry 2022-03-25 10:20:00 99 % Commo n [facility] respiratory rate 2022-03-25 10:20:00 18 /min [facility] blood pressure systolic 2022-03-25 10:20:00 130 mm[Hg] Common [facility] blood pressure diastolic 2022-03-25 10:20:00 73 mm[Hg] Common [facility] height 2021-12-24 10:50:00 60 [in_i] Commo n [facility] weight 2021-12-24 10:50:00 101.6 [lb_av] Co mmon [facility] temperature 2021-12-24 10:50:00 97.6 [degF] Com [facility] bmi 2021-12-24 10:50:00 19.84 kg/m2 Comm on [facility] oximetry 2021-12-24 10:50:00 98 % Commo n [facility] respiratory rate 2021-12-24 10:50:00 18 /min [facility] blood pressure systolic 2021-12-24 10:50:00 135 mm[Hg] [facility] blood pressure diastolic 2021-12-24 10:50:00 79 mm[Hg] Common [facility] height 2021-11-12 09:20:00 60 [in_i] Commo n [facility] weight 2021-11-12 09:20:00 97.8 [lb_av] Com [facility] temperature 2021-11-12 09:20:00 98.2 [degF] Com [facility] bmi 2021-11-12 09:20:00 19.1 kg/m2 Commo n [facility] oximetry 2021-11-12 09:20:00 99 % Commo n [facility] respiratory rate 2021-11-12 09:20:00 17 /min [facility] blood pressure systolic 2021-11-12 09:20:00 138 mm[Hg] Common Spiri t [facility] blood pressure diastolic 2021-11-12 09:20:00 76 mm[Hg] Common [facility] height 2021-11-12 09:20:00 60 [in_i] Commo n [facility] weight 2021-11-12 09:20:00 97.8 [lb_av] Com [facility] temperature 2021-11-12 09:20:00 98.2 [degF] Com [facility] bmi 2021-11-12 09:20:00 19.1 kg/m2 Commo n [facility] oximetry 2021-11-12 09:20:00 99 % Comm n [facility] respiratory rate 2021-11-12 09:20:00 17 /min Common [facility] blood pressure systolic 2021-11-12 09:20:00 138 mm[Hg] Common Spiri t [facility] blood pressure diastolic 2021-11-12 09:20:00 76 mm[Hg] Common [facility] height 2021-08-31 10:00:00 60 [in_i] Commo n [facility] weight 2021-08-31 10:00:00 107.2 [lb_av] Co mmon [facility] temperature 2021-08-31 10:00:00 96.2 [degF] Com [facility] bmi 2021-08-31 10:00:00 20.93 kg/m2 Comm on [facility] blood pressure systolic 2021-08-31 10:00:00 115 mm[Hg] Common Spiri t [facility] blood pressure diastolic 2021-08-31 10:00:00 63 mm[Hg] [facility] height 2021-04-28 14:10:00 60 [in_i] Commo n [facility] weight 2021-04-28 14:10:00 103.2 [lb_av] Co mmon [facility] temperature 2021-04-28 14:10:00 96.8 [degF] Com [facility] bmi 2021-04-28 14:10:00 20.15 kg/m2 Comm on [facility] oximetry 2021-04-28 14:10:00 96 % Commo n [facility] respiratory rate 2021-04-28 14:10:00 18 /min [facility] blood pressure systolic 2021-04-28 14:10:00 120 mm[Hg] Common Spiri t [facility] blood pressure diastolic 2021-04-28 14:10:00 62 mm[Hg] [facility] height 2021-04-28 14:00:00 60 [in_i] Commo n [facility] weight 2021-04-28 14:00:00 103.2 [lb_av] Co mmon [facility] temperature 2021-04-28 14:00:00 96.8 [degF] Com [facility] bmi 2021-04-28 14:00:00 20.15 kg/m2 Comm on [facility] oximetry 2021-04-28 14:00:00 96 % Commo n [facility] respiratory rate 2021-04-28 14:00:00 18 /min [facility] blood pressure systolic 2021-04-28 14:00:00 120 mm[Hg] [facility] blood pressure diastolic 2021-04-28 14:00:00 62 mm[Hg] [facility] Systolic blood pressure 2019-12-05 17:30:00 170 mm[Hg] [facility] Diastolic blood pressure 2019-12-05 17:30:00 66 mm[Hg] [facility] Heart rate 2019-12-05 17:30:00 64 /min [facility] Respiratory rate 2019-12-05 17:30:00 15 /min [facility] Oxygen saturation in Arterial blood by Pulse oximetry 2019-12-05 17:30:00 97 /min [facility] Body temperature 2019-12-05 17:14:00 36.06 Gabbi [facility] Body height 2019-12-04 13:00:00 149.9 cm [facility] Body weight 2019-12-04 13:00:00 49.896 kg [facility] BMI 2019-12-04 13:00:00 22.22 kg/m2 [facility] Systolic blood pressure 2019-12-05 17:30:00 170 mm[Hg] [facility] Diastolic blood pressure 2019-12-05 17:30:00 66 mm[Hg] [facility] Heart rate 2019-12-05 17:30:00 64 /min [facility] Respiratory rate 2019-12-05 17:30:00 15 /min [facility] Oxygen saturation in Arterial blood by Pulse oximetry 2019-12-05 17:30:00 97 /min [facility] Body temperature 2019-12-05 17:14:00 36.06 Gabbi [facility] Body height 2019-12-04 13:00:00 149.9 cm [facility] Body weight 2019-12-04 13:00:00 49.896 kg [facility] BMI 2019-12-04 13:00:00 22.22 kg/m2 [facility] Respiratory rate 2019-12-05 17:09:00 15 /min [facility] Respiratory rate 2019-12-05 17:09:00 15 /min [facility] Systolic blood pressure 2019-11-21 15:55:00 180 mm[Hg] [facility] Diastolic blood pressure 2019-11-21 15:55:00 69 mm[Hg] [facility] Heart rate 2019-11-21 15:55:00 60 /min [facility] 2019-11-21 15:55:00 17 /min [facility] Oxygen saturation in Arterial blood by Pulse oximetry 2019-11-21 15:55:00 98 /min [facility] Body temperature 2019-11-21 15:20:00 36.56 Gabbi [facility] Body height 2019-11-21 13:00:00 149.9 cm [facility] Body weight 2019-11-21 13:00:00 49.896 kg [facility] BMI 2019-11-21 13:00:00 22.22 kg/m2 [facility] Systolic blood pressure 2019-11-21 15:55:00 180 mm[Hg] [facility] Diastolic blood pressure 2019-11-21 15:55:00 69 mm[Hg] [facility] Heart rate 2019-11-21 15:55:00 60 /min [facility] Res[facility] rate 2019-11-21 15:55:00 17 /min [facility] Oxygen saturation in Arterial blood by Pulse oximetry 2019-11-21 15:55:00 98 /min [facility] Body temperature 2019-11-21 15:20:00 36.56 Gabbi [facility] Body height 2019-11-21 13:00:00 149.9 cm [facility] Body weight 2019-11-21 13:00:00 49.896 kg [facility] BMI 2019-11-21 13:00:00 22.22 kg/m2 [facility] Procedures Procedure Date / Time Performed Performing Clinician Source HOME HEALTH - OTHER 2023-08-25 06:01:00 Doctor Yi cr, [facility] HEALTH - OTHER 2023-04-08 05:01:00 Doctor Yi cr, [facility] - OTHER 2023-03-08 05:01:00 Doctor U nassigned, [facility] HEALTH - OTHER 2023-01-27 05:01:00 Doctor U nassigned, [facility] PHYSICIAN ORDERS 2022-12-29 05:01:00 Doctor Ho signed, [facility] PHYSICIAN ORDERS 2022-12-15 05:01:00 Doctor Ho signed, [facility] EXTERNAL PROVIDER RECORDS 2022-11-17 05:01:00 Do ctor Unassigned, [facility] EXTERNAL PROVIDER RECORDS 2022-10-21 05:01:00 Do ctor Unassigned, [facility] HEALTH - OTHER 2022-10-06 05:01:00 Doctor Yi johnsonsigned, [facility] ASSIGNMENT OF BENEFITS 2022-09-23 16:12:32 Docto r Unassigned, [facility] COVID-19 (ID NOW RAPID TESTING) 2022-08-13 16:23:00 Kyle Mcintosh [facility] LAB ONLY COVID INTERPRETATION 2022-08-13 16:23:00 Kyle Mcintosh [facility] BASIC METABOLIC PANEL (NA, K, CL, CO2, GLUCOSE, BUN, CREATININE, CA) 2022-08-13 10:09:00 Sd Brannon [facility] CBC WITH DIFF 2022-08-13 10:09:00 Sd Brannon [facility] BASIC METABOLIC PANEL (NA, K, CL, CO2, GLUCOSE, BUN, CREATININE, CA) 2022-08-12 17:37:00 Gaurav Dan [facility] MAGNESIUM 2022-08-11 11:16:00 Sd Brannon [facility] BASIC METABOLIC PANEL (NA, K, CL, CO2, GLUCOSE, BUN, CREATININE, CA) 2022-08-11 11:16:00 Sd Brannon [facility] CBC WITH DIFF 2022-08-11 11:16:00 Sd Brannon [facility] MAGNESIUM 2022-08-08 09:44:00 Sd Brannon [facility] BASIC METABOLIC PANEL (NA, K, CL, CO2, GLUCOSE, BUN, CREATININE, CA) 2022-08-08 09:44:00 Sd Brannon [facility] CBC WITH DIFF 2022-08-08 09:44:00 Sd Brannon [facility] XR CERVICAL SPINE 2 VW 2022-08-07 02:58:21 Aravind bedoyaMandi [facility] MAGNESIUM 2022-08-06 10:07:00 Sd Brannon [facility] BASIC METABOLIC PANEL (NA, K, CL, CO2, GLUCOSE, BUN, CREATININE, CA) 2022-08-06 10:07:00 Sd Brannon [facility] CBC WITH DIFF 2022-08-06 10:07:00 Sd Brannon [facility] MAGNESIUM 2022-08-06 10:07:00 Sd Brannon [facility] BASIC METABOLIC PANEL (NA, K, CL, CO2, GLUCOSE, BUN, CREATININE, CA) 2022-08-06 10:07:00 Sd Brannon [facility] CBC WITH DIFF 2022-08-06 10:07:00 Sd Brannon [facility] [place] TIME OR (NON-REPORTABLE) 2022-08-05 22:51:31 Mandi Marshall [facility] FL TIME OR (NON-REPORTABLE) 2022-08-05 22:51:31 Mandi Marshall [facility] ABG+COOX+NA+K+GLU+CA2+ 2022-08-05 20:39:00 Triny Batista [facility] ABG+COOX+NA+K+GLU+CA2+ 2022-08-05 20:39:00 Triny Batista [facility] XR CERVICAL SPINE 1 VW 2022-08-05 20:23:27 Mandi Randhawa [facility] FUSION SPINE POSTERIOR CERVICAL AND DISCECTOMY 2022-08-05 18:08:00 Pati Martin [facility] FUSION SPINE POSTERIOR CERVICAL AND DISCECTOMY 2022-08-05 18:08:00 Pati Martin [facility] HB ECG ROUTINE & RHYTHM STRIP 2022-08-05 13:47:54 Kyle Mcintosh [facility] HB ABO GROUPING 2022-08-05 10:42:00 NiGaurav [facility] HB ABO GROUPING 2022-08-05 10:42:00 NiGaurav [facility] BASIC METABOLIC PANEL (NA, K, CL, CO2, GLUCOSE, BUN, CREATININE, CA) 2022-08-05 10:35:00 NiGaurav [facility] CBC WITH DIFF 2022-08-05 10:35:00 Gaurav Dan [facility] PROTHROMBIN TIME / INR 2022-08-05 10:35:00 NiRenzo [facility] ACTIVATED PARTIAL THRMPLAS ROYAL 2022-08-05 10:35:00 [facility] (NA, K, CL, CO2, GLUCOSE, BUN, CREATININE, CA) 2022-08-05 10:35:00 Gaurav Dan [facility] CBC WITH DIFF 2022-08-05 10:35:00 NiGaurav [facility] PROTHROMBIN TIME / INR 2022-08-05 10:35:00 NiRenzo [facility] ACTIVATED PARTIAL THRMPLAS ROYAL 2022-08-05 10:35:00 [facility] VW 2022-08-04 20:17:23 [facility] XR CHEST 1 VW 2022-08-04 20:17:23 NiGaurav [facility] MAGNESIUM 2022-08-04 10:41:00 Sd Brannon [facility] BASIC METABOLIC PANEL (NA, K, CL, CO2, GLUCOSE, BUN, CREATININE, CA) 2022-08-04 10:41:00 Sd Brannon [facility] CBC WITH DIFF 2022-08-04 10:41:00 Sd Brannon [facility] MAGNESIUM 2022-08-04 10:41:00 Sd Brannon [facility] BASIC METABOLIC PANEL (NA, K, CL, CO2, GLUCOSE, BUN, CREATININE, CA) 2022-08-04 10:41:00 Sd Brannon [facility] CBC WITH DIFF 2022-08-04 10:41:00 Sd Brannon [facility] MAGNESIUM 2022-08-02 09:26:00 Sd Brannon [facility] BASIC METABOLIC PANEL (NA, K, CL, CO2, GLUCOSE, BUN, CREATININE, CA) 2022-08-02 09:26:00 Sd Brannon [facility] CBC WITH DIFF 2022-08-02 09:26:00 Sd Brannon [facility] MAGNESIUM 2022-08-02 09:26:00 Sd Brannon [facility] BASIC METABOLIC PANEL (NA, K, CL, CO2, GLUCOSE, BUN, CREATININE, CA) 2022-08-02 09:26:00 Sd Brannon [facility] CBC WITH DIFF 2022-08-02 09:26:00 Sd Brannon [facility] NM MUGA 2022-07-30 16:08:00 Micky Veliz U [facility] 2022-07-30 16:08:00 Micky Veliz [facility] TRANSTHORACIC ECHO (TTE) COMPLETE W/ CONTRAST 2022-07-29 19:55:23 Sd Brannon [facility] TRANSTHORACIC ECHO (TTE) COMPLETE W/ CONTRAST 2022-07-29 19:55:23 Sd Brannon [facility] NM MYOCARDIUM PERFUSION STRESS ONLY 2022-07-29 16:50:00 Tressa Suarez [facility] NM MYOCARDIUM PERFUSION STRESS ONLY 2022-07-29 16:50:00 Tressa Suarez [facility] HB ECG ROUTINE & RHYTHM STRIP 2022-07-29 14:45:19 Micky Veliz [facility] HB ECG ROUTINE & RHYTHM STRIP 2022-07-29 14:45:19 Micky Veliz [facility] ABORH CONFIRMATION (LAB ONLY) 2022-07-29 11:35:00 Salud Sd Dennis [facility] ABORH CONFIRMATION (LAB ONLY) 2022-07-29 11:35:00 Sd Brannon [facility] HB ABO GROUPING 2022-07-29 11:15:00 Sd Brannon [facility] HB ABO GROUPING 2022-07-29 11:15:00 Sd Brannon [facility] MAGNESIUM 2022-07-29 10:10:00 Sd Brannon [facility] BASIC METABOLIC PANEL (NA, K, CL, CO2, GLUCOSE, BUN, CREATININE, CA) 2022-07-29 10:10:00 Sd Brannon [facility] CBC WITH DIFF 2022-07-29 10:10:00 Sd Brannon [facility] MAGNESIUM 2022-07-29 10:10:00 Sd Brannon [facility] BASIC METABOLIC PANEL (NA, K, CL, CO2, GLUCOSE, BUN, CREATININE, CA) 2022-07-29 10:10:00 Salud [facility] CBC WITH DIFF 2022-07-29 10:10:00 Sd Brannon [facility] CT HEAD WO CONTRAST 2022-07-29 02:51:00 Mandi Marshall [facility] CT HEAD WO CONTRAST 2022-07-29 02:51:00 Mandi Marshall [facility] BASIC METABOLIC PANEL (NA, K, CL, CO2, GLUCOSE, BUN, CREATININE, CA) 2022-07-28 04:55:00 Weston Arreguin [facility] BASIC METABOLIC PANEL (NA, K, CL, CO2, GLUCOSE, BUN, CREATININE, CA) 2022-07-28 04:55:00 Weston Arreguin [facility] PROTHROMBIN TIME / INR 2022-07-28 03:46:00 Param Arreguin am [facility] ACTIVATED PARTIAL THRMPLAS ROYAL 2022-07-28 03:46:00 Weston Arreguin [facility] PROTHROMBIN TIME / INR 2022-07-28 03:46:00 Param Arreguin am [facility] ACTIVATED PARTIAL THRMPLAS ROYAL 2022-07-28 03:46:00 Weston Arreguin [facility] LIPASE 2022-07-27 23:29:00 [facility] WITH [facility]FF 2022-07-27 23:29:00 Marlyn Cedeno [facility] LIPASE 2022-07-27 23:29:00 [facility] CBC WITH DIFF 2022-07-27 23:29:00 Marlyn Cedeno [facility] MR CERVICAL SPINE WO CONTRAST 2022-07-27 21:07:00 Marlyn Cedeno [facility] MR CERVICAL SPINE WO CONTRAST 2022-07-27 21:07:00 Marlyn Cedeno [facility] CT CERVICAL SPINE WO CONTRAST 2022-07-27 17:59:14 Marlyn Cedeno [facility] CT CERVICAL SPINE WO CONTRAST 2022-07-27 17:59:14 Marlyn Cedeno [facility] CONSENT/REFUSAL FOR DIAGNOSIS AND TREATMENT 2022-07-27 16:28:45 Doctor Unassigned, [place] [facility] CONSENT/REFUSAL FOR DIAGNOSIS AND TREATMENT 2022-07-27 16:28:45 Doctor Unassigned, [place] [facility] HOSPITAL ADMISSION 2022-07-27 06:01:00 Doctor Un assigned, [place] [facility] HOSPITAL ADMISSION 2022-07-27 06:01:00 Doctor Un assigned, [place] [facility] CONSENT/REFUSAL FOR DIAGNOSIS AND TREATMENT 2019-12-04 13:54:31 Doctor Unassigned, [place] [facility] ASSIGNMENT OF BENEFITS 2019-12-04 13:54:12 Docto r Unassigned, [place] [facility] CBC WITH DIFFERENTIAL 2019-11-16 15:49:00 Yulissa Marte [facility] CONSENT/REFUSAL FOR DIAGNOSIS AND TREATMENT 2019-11-16 15:25:37 Doctor Unassigned, [place] [facility] ASSIGNMENT OF BENEFITS 2019-11-16 15:25:15 Docto r Unassigned, [place] [facility] NOTICE OF BILLING PRACTICES FOR MEDICARE PATIENTS 2019-11-16 15:24:47 Doctor Unassigned, [place] [facility] PATIENT FINANCIAL POLICY 2019-11-16 15:24:28 Doctor Unassigned, [place] [facility] NO SHOW OR MISSED APPOINTMENT POLICY ACKNOWLEDGEMENT 2019-11-16 15:24:05 Doctor Unassigned, [place] [facility] NOTICE OF PRIVACY PRACTICES 2019-11-16 15:23:43 Doctor Unassigned, [place] [facility] CONSENT/REFUSAL FOR DIAGNOSIS AND TREATMENT 2019-11-16 15:23:22 Doctor Unassigned, [place] [facility] ASSIGNMENT OF BENEFITS 2019-11-16 15:22:59 Docto r Unassigned, [place] [facility] Encounters Start Date/Time End Date/Time Encounter Type Admission Type Attending [facility] Care Department Encounter ID Source 2024-09-14 14:51:00 Outpatient Abdalla, Denny STLMLC STLMLC [id number] [facility] 2023-10-12 11:47:00 Outpatient Abdalla, Denny STLMLC STLMLC [id number] [facility] 2023-08-04 15:30:00 Outpatient Abdalla, Denny STLMLC STLMLC [id number] [facility] 2023-05-25 11:38:00 Outpatient Abdalla, Denny STLMLC STLMLC [id number] [facility] 2023-05-04 08:47:00 Outpatient Abdalla, Denny STLMLC STLMLC [id number] [facility] 2023-02-22 08:15:00 Outpatient Abdalla, Denny STLMLC STLMLC [id number] [facility] 2022-09-30 14:28:00 Outpatient Abdalla, Denny STLMLC STLMLC [id number] [facility] 2022-07-30 13:18:49 Inpatient LISA NIEVES NATHAN [facility] [id number] [facility] 2022-06-26 06:48:01 Outpatient Abdalla, Denny STLMLC STLMLC [id number] [facility] 2022-06-23 08:53:00 Outpatient Abdalla, Denny STLMLC STLMLC [id number] [facility] 2022-03-26 08:26:00 Outpatient Abdalla, Denny STLMLC STLMLC [id number] [facility] 2022-03-25 10:11:00 Outpatient Abdalla, Denny STLMLC STLMLC [id number] [facility] 2022-03-24 10:15:07 Outpatient Abdalla, Denny STLMLC STLMLC [id number] [facility] 2022-01-25 13:50:00 Outpatient Abdalla, Denny STLMLC STLMLC [id number] [facility] 2021-12-25 07:27:00 Outpatient Abdalla, Denny STLMLC STLMLC [id number] [facility] 2021-11-13 08:45:02 Outpatient Abdalla, Denny STLMLC STLMLC [id number] [facility] 2021-11-09 13:41:00 Outpatient Abdalla, Denny STLMLC STLMLC [id number] [facility] 2021-09-29 15:38:00 Outpatient Abdalla, Denny STLMLC STLMLC [id number] [facility] 2021-08-12 14:21:27 Outpatient Abdalla, Denny STLMLC STLMLC [id number] [facility] 2021-08-12 14:00:42 Outpatient Abdalla, Denny STLMLC STLMLC [id number] [facility] 2021-08-12 13:24:30 Outpatient Abdalla, Denny STLMLC STLMLC [id number] [facility] 2021-08-12 12:41:17 Outpatient Abdalla, Denny STLMLC STLMLC [id number] [facility] 2021-08-12 11:53:12 Outpatient Abdalla, Denny STLMLC STLMLC [id number] [facility] 2021-08-12 11:50:53 Outpatient Abdalla, Denny STLMLC STLMLC [id number] [facility] 2021-08-12 11:29:14 Outpatient Abdalla, Denny STLMLC STLMLC [id number] [facility] 2021-08-12 11:27:37 Outpatient Abdalla, Denny STLMLC STLMLC [id number] [facility] 2021-08-12 11:18:10 Outpatient Abdalla, Denny STLMLC STLMLC [id number] [facility] 2021-08-12 11:03:30 Outpatient Abdalla, Denny STLMLC STLMLC [id number] [facility] 2021-08-12 11:02:51 Outpatient LongAriane STLMLC STLMLC [id number] [facility] 2021-05-14 21:11:39 Outpatient GREYSON MARTE [facility] [id number] [facility] 2021-05-14 19:37:31 Outpatient GREYSON GUZMAN [facility] [id number] [facility] 2024-09-14 00:00:00 2024-09-14 00:00:00 (TEL) STLMLC STLMLC [id number] [facility] 2024-03-05 00:00:00 2024-05-01 13:54:01 Telephone Pati Martin [facility] OFFICE BUILDING 1.2.840.114 350.1.13.10 4.2.7.2.686 [id number] [facility] 2023-10-14 00:00:00 2023-10-14 00:00:00 (TEL) STLMLC STLMLC [id number] [facility] 2023-10-13 00:00:00 2023-10-13 00:00:00 OFFICE VISIT ESTAB PT LEVEL 4 STLMLC STLMLC [id number] [facility] 2023-08-25 00:00:00 2023-08-25 00:00:00 Orders Only Doctor Unassigned, [place] [facility] 1..840.114 350.1.13.10 4.2.7.2.686 [id number] [facility] 2023-08-01 00:00:00 2023-08-01 00:00:00 (TEL) STLMLC STLMLC [id number] [facility] 2023-07-25 00:00:00 2023-07-25 00:00:00 (TEL) STLMLC STLMLC [id number] [facility] 2023-07-22 00:00:00 2023-07-22 00:00:00 (TEL) STLMLC STLMLC [id number] [facility] 2023-05-27 00:00:00 2023-05-27 00:00:00 (TEL) STLMLC STLMLC [id number] [facility] 2023-05-25 00:00:00 2023-05-25 00:00:00 OFFICE VISIT ESTAB PT LEVEL 4 STLMLC STLMLC [id number] [facility] 2023-05-04 00:00:00 2023-05-04 00:00:00 (TEL) STLMLC STLMLC [id number] [facility] 2023-04-08 00:00:00 2023-04-08 00:00:00 Orders Only Doctor Unassigned, [place] [facility] 1..840.114 350.1.13.10 4.2.7.2.686 [id number] [facility] 2023-04-06 00:00:00 2023-04-06 00:00:00 [facility] [id number] [facility] 2023-03-08 00:00:00 2023-03-08 00:00:00 Telephone Pati Martin [facility] [place] MEDICAL OFFICE BUILDING 1..840.114 350.1.13.10 4.2.7.2.686 [id number] [facility] 2023-03-08 00:00:00 2023-03-08 00:00:00 Orders Only Doctor Unassigned, [place] [facility] 1.840.114 350.1.13.10 4.2.7.2.686 [id number] [facility] 2023-02-22 08:40:00 2023-02-22 08:40:00 Outpatient PATI MOELLER PATRICK [facility] [id number] [facility] 2023-02-21 00:00:00 2023-02-21 00:00:00 Outpatient SHERIDAN GALICIA [facility] [id number] [facility] 2023-02-14 00:00:00 2023-02-14 00:00:00 (TEL) [facility] [id number] [facility] 2023-02-08 10:00:00 2023-02-08 10:00:00 [facility] [id number] [facility] 2023-01-27 00:00:00 2023-01-27 00:00:00 Orders Only Doctor Unassigned, [place] [address]..840.114 350.1.13.10 4.2.7.2.686 [id number] [facility] 2023-01-24 00:00:00 2023-01-24 00:00:00 Outpatient Jane SAUNDERS SHERIDAN [facility] [id number] [facility] 2023-01-06 00:00:00 2023-01-06 00:00:00 Outpatient Jane SAUNDERS [facility] [id number] [facility] 2023-01-04 10:40:00 2023-01-04 10:40:00 Outpatient PATI MOELLER PATRICK [facility] [id number] [facility] 2022-12-29 00:00:00 2022-12-29 00:00:00 Orders Only Doctor Unassigned, [place] [facility] 1.20.114 350.1.13.10 4.2.7.2.686 [id number] [facility] 2022-12-24 00:00:00 2022-12-24 00:00:00 Outpatient Jane SAUNDERS [facility] [id number] [facility] 2022-12-15 00:00:00 2022-12-15 00:00:00 Orders Only Doctor Unassigned, [place] [facility] 1.2840.114 350.1.13.10 4.2.7.2.686 [id number] [facility] 2022-11-18 00:00:00 2022-11-18 00:00:00 Pati Rouse [facility] OFFICE BUILDING 1.2840.114 350.1.13.10 4.2.7.2.686 [id number] [facility] 2022-11-17 00:00:00 2022-11-17 00:00:00 Orders Only Doctor Unassigned, [place] [facility] 1.2840.114 350.1.13.10 4.2.7.2.686 [id number] [facility] 2022-10-21 00:00:00 2022-10-21 00:00:00 Orders Only Doctor Unassigned, [place] [facility] 1.2840.114 350.1.13.10 4.2.7.2.686 [id number] [facility] 2022-10-12 00:00:00 2022-10-12 00:00:00 Telephone Rafa [facility] MEDICAL OFFICE BUILDING 1.2840.114 350.1.13.10 4.2.7.2.686 [id number] [facility] 2022-10-06 00:00:00 2022-10-06 00:00:00 Orders Only Doctor Unassigned, [place] [facility] 1.2840.114 350.1.13.10 4.2.7.2.686 [id number] [facility] 2022-09-29 00:00:00 2022-09-29 00:00:00 Outpatient Jane SAUNDERS [facility] [id number] [facility] 2022-09-23 11:40:00 2022-09-23 23:59:00 Outpatient Jane SAUNDERS [facility] [id number] [facility] 2022-09-23 11:40:00 2022-09-23 23:59:00 Hospital Encounter Sheridan Saunders [facility] 1.2840.114 350.1.13.10 4.2.7.2.686 [id number] [facility] 2022-09-23 10:40:00 2022-09-23 11:00:00 Office Visit Rafa Pati [facility] [place] MEDICAL OFFICE BUILDING 1.2840.114 350.1.13.10 4.2.7.2.686 [id number] [facility] 2022-09-23 00:00:00 2022-09-23 00:00:00 Orders Only Doctor Unassigned, [place] [facility] 1.2840.114 350.1.13.10 4.2.7.2.686 [id number] [facility] 2022-09-17 00:00:00 2022-09-17 00:00:00 Telephone Pati Martin [facility] [place] MEDICAL OFFICE BUILDING 1.2840.114 350.1.13.10 4.2.7.2.686 [id number] [facility] 2022-09-09 00:00:00 2022-09-09 00:00:00 Patient Outreach Elizabet Ruiz Gabriel [facility] [place] MEDICAL OFFICE BUILDING 1.2840.114 350.1.13.10 4.2.7.2.686 [id number] [facility] 2022-09-09 00:00:00 2022-09-09 00:00:00 Patient Outreach Elizabet Ruiz [facility] 1.2840.114 350.1.13.10 4.2.7.2.686 [id number] [facility] 2022-09-09 00:00:00 2022-09-09 00:00:00 [address] Pati [facility] [place] MEDICAL OFFICE BUILDING 1.2840.114 350.1.13.10 4.2.7.2.686 [id number] [facility] 2022-09-09 00:00:00 2022-09-09 00:00:[address]i [facility] [place] MEDICAL OFF[facility] BUILDING 1.2840.114 350.1.13.10 4.2.7.2.686 [id number] [facility] 2022-09-09 00:00:00 2022-09-09 00:00:00 (TEL) STLMLC STLMLC [id number] [facility] 2022-09-06 00:00:00 2022-09-06 00:00:00 Tele[address] Raf[address] Pati [facility] [place] MEDICAL OFFICE BUILDING 1.2840.114 350.1.13.10 4.2.7.2.686 [id number] [facility] 2022-09-03 15:30:00 2022-09-03 15:30:00 Outpatient R PATI MARTIN [facility] [id number] [facility] 2022-08-20 00:00:00 2022-08-20 00:00:00 (TEL) [facility] [id number] [facility] 2022-07-27 10:38:00 2022-08-13 17:54:00 Outpatient X PATI MARTIN PATI [facility] [id number] [facility] 2022-07-27 10:38:00 2022-08-13 17:54:00 Emergency Wilian, Marlyn Charles, [facility] 1..840.114 350.1.13.10 4.2.7.2.686 [id number] [facility] 2022-08-13 14:15:00 2022-08-13 14:15:00 Ambulatory Pre-Reg [facility] [id number] Yari Bose 2022-08-13 00:00:00 2022-08-13 00:00:[address] [facility] 1..840.114 350.1.13.10 4.2.7.2.686 [id number] [facility] 2022-08-05 12:00:00 2022-08-05 17:00:00 Surgery [facility] 1..840.114 350.1.13.10 4.2.7.2.686 [id number] [facility] 2022-08-03 21:45:00 2022-08-03 21:45:00 Ambulatory Pre-Reg [facility] [id number] [facility] 2022-07-27 14:15:00 2022-07-28 05:59:59 Outpatient [facility] [id number] Yari Bose 2022-07-21 00:00:00 2022-07-21 00:00:00 (TEL) STLMLC STLMLC [id number] [facility] 2022-07-16 14:15:00 2022-07-16 14:15:00 Ambulatory Pre-Reg [facility] [id number] Yari Lunaann 2022-07-07 00:00:00 2022-07-07 00:00:00 (TEL) STLMLC STLMLC [id number] [facility] 2022-06-25 00:00:00 2022-06-25 00:00:00 OFFICE VISIT ESTAB PT LEVEL 4 STLMLC STLMLC [id number] [facility] 2022-06-23 00:00:00 2022-06-23 00:00:00 (TEL) STLMLC STLMLC [id number] [facility] 2022-03-25 00:00:00 2022-03-25 00:00:00 OFFICE VISIT ESTAB PT LEVEL 4 STLMLC STLMLC [id number] [facility] 2022-02-15 00:00:00 2022-02-15 00:00:00 Outpatient BRITTNEYLEALLI_ ANANDA ROGERS [facility] [id number] Betty [facility] 2021-12-24 00:00:00 2021-12-24 00:00:00 OFFICE VISIT ESTAB PT LEVEL 4 STLMLC STLMLC [id number] [facility] 2021-11-12 00:00:00 2021-11-12 00:00:00 OFFICE VISIT EST PT LEVEL 3 STLMLC STLMLC [id number] [facility] 2021-11-12 00:00:00 2021-11-12 00:00:00 SUB ANNUAL [facility] WELLNESS VISIT STLMLC STLMLC [id number] [facility] 2021-09-29 00:00:00 2021-09-29 00:00:00 (TEL) STLMLC STLMLC [id number] [facility] 2021-09-25 00:00:00 2021-09-25 00:00:00 (TEL) STLMLC STLMLC [id number] [facility] 2021-09-11 00:00:00 2021-09-11 00:00:00 (TEL) STLMLC STLMLC [id number] [facility] 2021-09-02 00:00:00 2021-09-02 00:00:00 (TEL) STLMLC STLMLC [id number] [facility] 2021-08-31 00:00:00 2021-08-31 00:00:00 OFFICE VISIT EST PT LEVEL 3 STLMLC STLMLC [id number] [facility] 2021-04-28 00:00:00 2021-04-28 00:00:00 (TEL) STLMLC STLMLC [id number] [facility] 2021-04-28 00:00:00 2021-04-28 00:00:00 OFFICE VISIT ESTAB PT LEVEL 4 STLMLC STLMLC [id number] [facility] 2021-04-28 00:00:00 2021-04-28 00:00:00 (TEL) STLMLC STLMLC [id number] [facility] 2021-04-28 00:00:00 2021-04-28 00:00:00 SUB ANNUAL [facility] WELLNESS VISIT STLMLC STLMLC [id number] [facility] 2021-01-26 00:00:00 2021-01-26 00:00:00 Outpatient STLMLC STLMLC [id number] [facility] 2021-01-13 00:00:00 2021-01-13 00:00:00 Outpatient STLMLC STLMLC [id number] [facility] 2020-10-27 00:00:00 2020-10-27 00:00:00 Outpatient STLMLC STLMLC [id number] [facility] 2020-10-02 00:00:00 2020-10-02 00:00:00 Outpatient STLMLC STLMLC [id number] [facility] 2020-09-30 00:00:00 2020-09-30 00:00:00 Outpatient STLMLC STLMLC [id number] [facility] 2020-09-28 00:00:00 2020-09-28 00:00:00 Outpatient STLMLC STLMLC [id number] [facility] 2020-07-30 00:00:00 2020-07-30 00:00:00 Outpatient STLMLC STLMLC [id number] [facility] 2020-07-28 00:00:00 2020-07-28 00:00:00 Outpatient STLMLC STLMLC [id number] [facility] 2020-05-06 00:00:00 2020-05-06 00:00:00 Outpatient STLMLC STLMLC [id number] [facility] 2020-04-24 00:00:00 2020-04-24 00:00:00 Outpatient STLMLC STLMLC [id number] [facility] 2020-04-24 00:00:00 2020-04-24 00:00:00 Outpatient STLMLC STLMLC [id number] [facility] 2020-04-17 00:00:00 2020-04-17 00:00:00 Outpatient STLMLC STLMLC [id number] [facility] 2020-01-16 08:45:00 2020-01-16 08:45:00 [place] [facility] [facility] [id number] [facility] 2019-12-05 10:22:39 2019-12-05 13:03:00 [facility] Greyson Yee [facility] 1.2.840.114 350.1.13.10 4.2.7.2.686 [id number] 2019-12-05 10:22:39 2019-12-05 13:03:00 Hospital Encounter Greyson Marte [facility] 1.2.840.114 350.1.13.10 4.2.7.2.686 [id number] [facility] 2019-12-05 11:44:00 2019-12-05 12:10:00 Anesthesia Nidia Nolasco [facility] 1.2.840.114 350.1.13.10 4.2.7.2.686 [id number] 2019-12-05 11:44:00 2019-12-05 12:10:00 Anesthesia Nidia Nolasco David K [facility] 1.2.840.114 350.1.13.10 4.2.7.2.686 [id number] [facility] 2019-12-04 08:03:07 2019-12-04 08:18:07 Laboratory Only Only, Adc Test [facility] 1.2.840.114 350.1.13.10 4.2.7.2.686 [id number] 2019-12-04 08:03:07 2019-12-04 08:18:07 Laboratory Only Only, Adc Test Greyson Marte [facility] 1.2.840.114 350.1.13.10 4.2.7.2.686 [id number] [facility] 2019-12-04 08:15:00 2019-12-04 08:15:00 Outpatient R GREYSON MARTE [facility] [id number] [facility] 2019-11-21 07:48:00 2019-11-21 11:30:00 Hospital Encounter Greyson Marte [facility] [place] 1.2.840.114 350.1.13.10 4.2.7.2.686 [id number] [facility] 2019-11-21 07:48:00 2019-11-21 11:30:00 Hospital Encounter Greyson Marte [facility] [place] 1.2.840.114 350.1.13.10 4.2.7.2.686 [id number] 2019-11-20 09:30:00 2019-11-20 09:30:00 Outpatient R [facility] [id number] [facility] 2019-11-20 08:56:58 2019-11-20 09:07:43 Laboratory Only Nurse, [facility] General Surgery Greyson Marte [facility] 1.2.840.114 350.1.13.10 4.2.7.2.686 [id number] [facility] 2019-11-20 08:56:58 2019-11-20 09:07:43 [facility] Only [facility] 1.2.840.114 350.1.13.10 4.2.7.2.686 [id number] 2019-11-20 00:00:00 2019-11-20 00:00:00 Telephone Greyson Marte [facility] [place] 1.2.840.114 350.1.13.10 4.2.7.2.686 [id number] [facility] 2019-11-20 00:00:00 2019-11-20 00:00:00 Telephone Greyson Marte [facility] [place] 1.2.840.114 350.1.13.10 4.2.7.2.686 [id number] 2019-11-16 10:33:59 2019-11-16 10:48:59 Repair Supervisor Visit Pob, [facility] Lab Main Greyson Marte [facility] 1.2.840.114 350.1.13.10 4.2.7.2.686 [id number] [facility] 2019-11-16 10:45:00 2019-11-16 10:45:00 Outpatient GREYSON GUZMAN [facility] [id number] [facility] 2019-11-12 15:30:00 2019-11-12 15:30:00 [facility] [id number] [facility] 2019-08-20 14:48:00 2019-08-20 14:48:00 Outpatient [place] [facility] [id number] [facility] 2019-08-13 15:30:00 2019-08-13 15:30:00 Outpatient [facility] [id number] [facility] 2016-07-22 10:45:00 2016-07-22 10:45:00 Outpatient Marcia MMG MMG [id number] [facility] Results Test Description Test Time Test Comments Results Result Co mments [facility] (NA, K, CL, CO2, GLUCOSE, BUN, CREATININE, CA)2022-08-11 11:57:57* Test Item Value Reference Range Interpretation Comme nts NA (test code = 8485024366) 128 mmol/L 135-145 L K (test code = 2015054329) 3.4 mmol/L 3.5-5.0 L CL (test code = 8612252985) 91 mmol/L 98-108 L CO2 TOTAL (test code = 8206105466) 31 mmol/L 23-31 AGAP (test code = 6557017022) 2-16 BUN (test code = 5242075730) 10 mg/dL 7-23 GLUCOSE (test code = 1236871181) 92 mg/dL 70-110 CREATININE (test code = 6688332621) 0.55 mg/dL 0.50-1.04 CALCIUM (test code = 3254371111) 8.7 mg/dL 8.6-10.6 eGFR (test code = 4479246235) mL/min/1.73m2 MIKEY (test code = MIKEY) Association of [...] or abnormalities in imaging tests). Lab Interpretation (test code = 08840-8) Abnormal [facility]2023-01-25 11:57:57* Test Item Value Reference Range Interpretation Comme nts MAGNESIUM (test code = 5493428930) 1.7 mg/dL 1.7-2.4 Lab Interpretation (test cod e = 46140-7) Normal [facility]2023-01-20 10:48:57* Test Item Value Reference Range Interpretation Comme nts MAGNESIUM (test code = 2039619658) 1.6 mg/dL 1.7-2.4 L Lab Interpretation (test cod e = 59548-5) [facility] (NA, K, CL, CO2, GLUCOSE, BUN, CREATININE, CA)2022-08-06 10:48:57* Test Item Value Reference Range Interpretation Comme nts NA (test code = 0600152516) 134 mmol/L 135-145 L K (test code = 1806410258) 4.6 mmol/L 3.5-5.0 CL (test code = 9402188146) 99 mmol/L 98-108 CO2 TOTAL (test code = 2275481735) 26 mmol/L 23-31 AGAP (test code = 7521344373) 2-16 BUN (test code = 5397645662) 24 mg/dL 7-23 H GLUCOSE (test code = 8455648284) 131 mg/dL 70-110 H CREATININE (test code = 1048428742) 0.78 mg/dL 0.50-1.04 CALCIUM (test code = 9433446440) 9.4 mg/dL 8.6-10.6 eGFR (test code = 0348620756) mL/min/1.73m2 MIKEY (test code = MIKEY) Association of [...] or abnormalities in imaging tests). Lab Interpretation (test code = 70107-6) [facility] Test Item Value Reference Range Interpretation Comme nts MAGNESIUM (test code = 8839751894) 1.6 mg/dL 1.7-2.4 L Lab Interpretation (test cod e = 72831-4) Abnormal [facility] METABOLIC PANEL (NA, K, CL, CO2, GLUCOSE, BUN, CREATININE, CA)2022-08-06 10:48:57* Test Item Value Reference Range Interpretation Comme nts NA (test code = 0275895869) 134 mmol/L 135-145 L K (test code = 1583327583) 4.6 mmol/L 3.5-5.0 CL (test code = 8167064772) 99 mmol/L 98-108 CO2 TOTAL (test code = 4388175349) 26 mmol/L 23-31 AGAP (test code = 2885328759) 2-16 BUN (test code = 0264175329) 24 mg/dL 7-23 H GLUCOSE (test code = 3443610310) 131 mg/dL 70-110 H CREATININE (test code = 9356970464) 0.78 mg/dL 0.50-1.04 CALCIUM (test code = 4276173241) 9.4 mg/dL 8.6-10.6 eGFR (test code = 1437580735) mL/min/1.73m2 MIKEY (test code = MIKEY) Association of [...] or abnormalities in imaging tests). Lab Interpretation (test code = 05554-5) Abnormal [facility] WITH [id number] 10:27:50* Test Item Value Reference Range Interpretation Comme nts WBC (test code = 6690-2) See_Comment H [Automated message] The system which generated this result transmitted reference range: 4.30 - 11.10 10*3/?L. The reference range was not used to interpret this result as normal/abnormal. RBC (test code = 789-8) See_Comment L [Automated message] The system which generated this result transmitted reference range: 3.93 - 5.25 10*6/?L. The reference range was not used to interpret this result as normal/abnormal. HGB (test code = 718-7) 10.0 g/dL 11.6-15.0 L HCT (test code = 4544-3) 30.1 % 35.7-45.2 L MCV (test code = 787-2) 92.9 fL 80.6-95.5 MCH (test code = 785-6) 30.9 pg 25.9-32.8 MCHC (test code = 786-4) 33.2 g/dL 31.6-35.1 RDW-SD (test code = 38103-3) 45.0 fL 39.0-49.9 RDW-CV (test code = 788-0) 13.2 % 12.0-15.5 PLT (test code = 777-3) See_Comment [Automated message] The system which generated this result transmitted reference range: 166 - 358 10*3/?L. The reference range was not used to interpret this result as normal/abnormal. MPV (test code = 18955-3) 11.8 fL 9.5-12.9 NRBC/100 WBC (test code = 1164243598) See_Comment [Automated message] The system which generated this result transmitted reference range: 0.0 - 10.0 /100 WBCs. The reference range was not used to interpret this result as normal/abnormal. NRBC x10^3 (test code = 9376279568) See_Comment [Automated message] The system which generated this result transmitted reference range: 10*3/?L. The reference range was not used to interpret this result as normal/abnormal. GRAN MAT (NEUT) % (test code = 770-8) 85.6 % IMM GRAN % (test code = 3841524612) 0.60 % LYMPH % (test code = 736-9) 7.2 % MONO % (test code = 5905-5) 6.4 % EOS % (test code = 713-8) 0.0 % BASO % (test code = 706-2) 0.2 % GRAN MAT x10^3(ANC) (test code = 8362115322) 10.66 10*3/uL 1.88-7.09 H IMM GRAN x10^3 (test code = 9281871538) 0.07 10*3/uL 0.00-0.06 H LYMPH x10^3 (test code = 731-0) 0.90 10*3/uL 1.32-3.29 L MONO x10^3 (test code = 742-7) 0.79 10*3/uL 0.33-0.92 EOS x10^3 (test code = 711-2) 0.03-0.39 L BASO x10^3 (test code = 704-7) 0.01-0.07 Lab Interpretation (test code = 61888-1) Abnormal [facility] WITH [id number] 10:27:50* Test Item Value Reference Range Interpretation Comme nts WBC (test code = 6690-2) See_Comment H [Automated message] The system which generated this result transmitted reference range: 4.30 - 11.10 10*3/?L. The reference range was not used to interpret this result as normal/abnormal. RBC (test code = 789-8) See_Comment L [Automated message] The system which generated this result transmitted reference range: 3.93 - 5.25 10*6/?L. The reference range was not used to interpret this result as normal/abnormal. HGB (test code = 718-7) 10.0 g/dL 11.6-15.0 L HCT (test code = 4544-3) 30.1 % 35.7-45.2 L MCV (test code = 787-2) 92.9 fL 80.6-95.5 MCH (test code = 785-6) 30.9 pg 25.9-32.8 MCHC (test code = 786-4) 33.2 g/dL 31.6-35.1 RDW-SD (test code = 56148-9) 45.0 fL 39.0-49.9 RDW-CV (test code = 788-0) 13.2 % 12.0-15.5 PLT (test code = 777-3) See_Comment [Automated message] The system which generated this result transmitted reference range: 166 - 358 10*3/?L. The reference range was not used to interpret this result as normal/abnormal. MPV (test code = 56550-2) 11.8 fL 9.5-12.9 NRBC/100 WBC (test code = 2090095927) See_Comment [Automated message] The system which generated this result transmitted reference range: 0.0 - 10.0 /100 WBCs. The reference range was not used to interpret this result as normal/abnormal. NRBC x10^3 (test code = 1397061412) See_Comment [Automated message] The system which generated this result transmitted reference range: 10*3/?L. The reference range was not used to interpret this result as normal/abnormal. GRAN MAT (NEUT) % (test code = 770-8) 85.6 % IMM GRAN % (test code = 0104457040) 0.60 % LYMPH % (test code = 736-9) 7.2 % MONO % (test code = 5905-5) 6.4 % EOS % (test code = 713-8) 0.0 % BASO % (test code = 706-2) 0.2 % GRAN MAT x10^3(ANC) (test code = 6953382414) 10.66 10*3/uL 1.88-7.09 H IMM GRAN x10^3 (test code = 4927112540) 0.07 10*3/uL 0.00-0.06 H LYMPH x10^3 (test code = 731-0) 0.90 10*3/uL 1.32-3.29 L MONO x10^3 (test code = 742-7) 0.79 10*3/uL 0.33-0.92 EOS x10^3 (test code = 711-2) 0.03-0.39 L BASO x10^3 (test code = 704-7) 0.01-0.07 Lab Interpretation (test code = 05132-6) [facility]GLU[facility]CA2+2022-08-06 05:11:56* Test Item Value Reference Range Interpretation Comme nts PH (test code = 2) 7.35-7.45 L PCO2 (test code = 3485722052) See_Comment [Automated messa ge] The system which generated this result transmitted reference range: 35 - 45 mmHg. The reference range was not used to interpret this result as normal/abnormal. PO2 (test code = 5334776412) See_Comment H [Automated messa ge] The system which generated this result transmitted reference range: 80 - 100 mmHg. The reference range was not used to interpret this result as normal/abnormal. HCO3 (test code = 7886391211) See_Comment L [Automated messa ge] The system which generated this result transmitted reference range: 22 - 26 mEq/L. The reference range was not used to interpret this result as normal/abnormal. BE (test code = 5871233394) See_Comment L [Automated messa ge] The system which generated this result transmitted reference range: -3.0 - 3.0 mEq/L. The reference range was not used to interpret this result as normal/abnormal. THB (test code = 9771806276) 12.0 g/dL 12.0-16.0 %O2HB (test code = 6934006485) 98.7 % 94.0-99.0 %COHB ART (test code = 3729986610) 0.6 % 0.0-1.5 %METHB ART (test code = 0751748946) 0.3 % 0.4-1.5 L VOL%O2 ART (test code = 2387535445) 17.4 % 15.0-23.0 QUES NA (test code = 9439510753) 132 mmol/L 135-145 L K+ (test code = 0747265123) 3.6 mmol/L 3.5-5.0 AC CA IONZ (test code = 5120861880) 5.30 mg/dL 4.50-5.30 GLUCOSE (test code = 0734588866) 107 mg/dL 70-110 Lab Interpretation (test code = 77859-2) [facility]GLU[facility]CA2+2022-08-06 05:11:56* Test Item Value Reference Range Interpretation Comme nts PH (test code = 2) 7.35-7.45 L PCO2 (test code = 6675072023) See_Comment [Automated messa ge] The system which generated this result transmitted reference range: 35 - 45 mmHg. The reference range was not used to interpret this result as normal/abnormal. PO2 (test code = 1788020441) See_Comment H [Automated messa ge] The system which generated this result transmitted reference range: 80 - 100 mmHg. The reference range was not used to interpret this result as normal/abnormal. HCO3 (test code = 4068048334) See_Comment L [Automated messa ge] The system which generated this result transmitted reference range: 22 - 26 mEq/L. The reference range was not used to interpret this result as normal/abnormal. BE (test code = 6774463017) See_Comment L [Automated messa ge] The system which generated this result transmitted reference range: -3.0 - 3.0 mEq/L. The reference range was not used to interpret this result as normal/abnormal. THB (test code = 6825417156) 12.0 g/dL 12.0-16.0 %O2HB (test code = 4214628861) 98.7 % 94.0-99.0 %COHB ART (test code = 5199305246) 0.6 % 0.0-1.5 %METHB ART (test code = 7499745200) 0.3 % 0.4-1.5 L VOL%O2 ART (test code = 8670369209) 17.4 % 15.0-23.0 QUES NA (test code = 9077147858) 132 mmol/L 135-145 L K+ (test code = 4808190608) 3.6 mmol/L 3.5-5.0 AC CA IONZ (test code = 8982916896) 5.30 mg/dL 4.50-5.30 GLUCOSE (test code = 8186375476) 107 mg/dL 70-110 Lab Interpretation (test code = 77988-7) [facility] Ftygxtp3814-07-05 11:28:31* Test Item Value Reference Range Interpretation Comme nts ABO & RH (test code = 20) O POSITIVE Performed at [facility] Laboratory Services - [facility] Blood [address] Free: [phone] No. [id number] IAT (test code = 1185) Negative Performed at [facility] Laboratory Services [address] Free: [phone] No. [id number] [facility] [id number] 11:28:31* Test Item Value Reference Range Interpretation Comme nts ABO & RH (test code = 20) O POSITIVE Performed at [facility] Laboratory Services [address] Free: [phone] No. [id number] IAT (test code = 1185) Negative Performed at [facility] Laboratory [address] Free: [phone] No. [id number] [facility] (NA, K, CL, CO2, GLUCOSE, BUN, CREATININE, CA)2022-08-05 11:17:44* Test Item Value Reference Range Interpretation Comme nts NA (test code = 7485653252) 133 mmol/L 135-145 L K (test code = 2843564497) 4.5 mmol/L 3.5-5.0 Slight hemolysis CL (test code = 3473717779) 101 mmol/L 98-108 CO2 TOTAL (test code = 2458417948) 28 mmol/L 23-31 AGAP (test code = 9321949288) 2-16 BUN (test code = 9322811850) 26 mg/dL 7-23 H Slight hemolysis GLUCOSE (test code = 9291588964) 94 mg/dL 70-110 CREATININE (test code = 9264112486) 0.81 mg/dL 0.50-1.04 CALCIUM (test code = 0955357515) 9.2 mg/dL 8.6-10.6 eGFR (test code = 7669613440) mL/min/1.73m2 MIKEY (test code = MIKEY) Association of [...] or abnormalities in imaging tests). Lab Interpretation (test code = 27132-5) Abnormal [facility] METABOLIC PANEL (NA, K, CL, CO2, GLUCOSE, BUN, CREATININE, CA)2022-08-05 11:17:44* Test Item Value Reference Range Interpretation Comme nts NA (test code = 5331008384) 133 mmol/L 135-145 L K (test code = 5227891535) 4.5 mmol/L 3.5-5.0 Slight hemolysis CL (test code = 1071947910) 101 mmol/L 98-108 CO2 TOTAL (test code = 1181746747) 28 mmol/L 23-31 AGAP (test code = 1222611041) 2-16 BUN (test code = 2017203831) 26 mg/dL 7-23 H Slight hemolysis GLUCOSE (test code = 4637586836) 94 mg/dL 70-110 CREATININE (test code = 9872102408) 0.81 mg/dL 0.50-1.04 CALCIUM (test code = 5589433940) 9.2 mg/dL 8.6-10.6 eGFR (test code = 0531668219) mL/min/1.73m2 MIKEY (test code = MIKEY) Association of [...] or abnormalities in imaging tests). Lab Interpretation (test code = 02353-8) [facility]normal [facility] CenterProthrombin Time / [id number] 11:00:23* Test Item Value Reference Range Interpretation Comme nts PROTIME PATIENT (test code = 5964-2) See_Comment [Automated messa ge] The system which generated this result transmitted reference range: 10.1 - 12.6 Seconds. The reference range was not used to interpret this result as normal/abnormal. INR (test code = 6301-6) Normal INR <1.1; Warfarin Therapeutic range 2.0 to 3.0 or 2.5 to 3.5, depending upon the indications. Lab Interpretation (test code = 95385-9) Normal [facility] THRMPLAS [id number] 11:00:23* Test Item Value Reference Range Interpretation Comme nts APTT Patient (test code = 3173-2) See_Comment [Automated [employer]] The system which generated this result transmitted reference range: 26 - 36 Seconds. The reference range was not used to interpret this result as normal/abnormal. Lab Interpretation (test code = 36633-2) Normal [facility] Center[facility] / [id number] 11:00:23* Test Item Value Reference Range Interpretation Comme nts PROTIME PATIENT (test code = 5964-2) See_Comment [Automated [employer]] The system which generated this result transmitted reference range: 10.1 - 12.6 Seconds. The reference range was not used to interpret this result as normal/abnormal. INR (test code = 6301-6) Normal INR <1.1; Warfarin Therapeutic range 2.0 to 3.0 or 2.5 to 3.5, depending upon the indications. Lab Interpretation (test code = 09907-8) Normal [facility] [id number] 11:00:23* Test Item Value Reference Range Interpretation Comme nts APTT Patient (test code = 3173-2) See_Comment [Automated IKOTECHa ge] The system which generated this result transmitted reference range: 26 - 36 Seconds. The reference range was not used to interpret this result as normal/abnormal. Lab Interpretation (test code = 61147-2) Normal [facility] WITH [id number] 10:54:04* Test Item Value Reference Range Interpretation Comme nts WBC (test code = 6690-2) See_Comment [Automated messa ge] The system which generated this result transmitted reference range: 4.30 - 11.10 10*3/?L. The reference range was not used to interpret this result as normal/abnormal. RBC (test code = 789-8) See_Comment L [Automated messa ge] The system which generated this result transmitted reference range: 3.93 - 5.25 10*6/?L. The reference range was not used to interpret this result as normal/abnormal. HGB (test code = 718-7) 12.0 g/dL 11.6-15.0 HCT (test code = 4544-3) 35.4 % 35.7-45.2 L MCV (test code = 787-2) 93.4 fL 80.6-95.5 MCH (test code = 785-6) 31.7 pg 25.9-32.8 MCHC (test code = 786-4) 33.9 g/dL 31.6-35.1 RDW-SD (test code = 43404-2) 46.5 fL 39.0-49.9 RDW-CV (test code = 788-0) 13.7 % 12.0-15.5 PLT (test code = 777-3) See_Comment [Automated messa ge] The system which generated this result transmitted reference range: 166 - 358 10*3/?L. The reference range was not used to interpret this result as normal/abnormal. MPV (test code = 11350-1) 12.1 fL 9.5-12.9 NRBC/100 WBC (test code = 4555831124) See_Comment [Automated [employer] ssage] The system which generated this result transmitted reference range: 0.0 - 10.0 /100 WBCs. The reference range was not used to interpret this result as normal/abnormal. NRBC x10^3 (test code = 4366337504) See_Comment [Automated messa ge] The system which generated this result transmitted reference range: 10*3/?L. The reference range was not used to interpret this result as normal/abnormal. GRAN MAT (NEUT) % (test code = 770-8) 51.8 % IMM GRAN % (test code = 0802160385) 0.10 % LYMPH % (test code = 736-9) 28.0 % MONO % (test code = 5905-5) 15.1 % EOS % (test code = 713-8) 4.3 % BASO % (test code = 706-2) 0.7 % GRAN MAT x10^3(ANC) (test code = 9897530980) 4.71 10*3/uL 1.88-7.09 IMM GRAN x10^3 (test code = 2572174908) 0.00-0.06 LYMPH x10^3 (test code = 731-0) 2.54 10*3/uL 1.32-3.29 MONO x10^3 (test code = 742-7) 1.37 10*3/uL 0.33-0.92 H EOS x10^3 (test code = 711-2) 0.39 10*3/uL 0.03-0.39 BASO x10^3 (test code = 704-7) 0.06 10*3/uL 0.01-0.07 Lab Interpretation (test code = 55703-7) Abnormal [facility] WITH [id number] 10:54:04* Test Item Value Reference Range Interpretation Comme nts WBC (test code = 6690-2) See_Comment [Automated IKOTECHa ge] The system which generated this result transmitted reference range: 4.30 - 11.10 10*3/?L. The reference range was not used to interpret this result as normal/abnormal. RBC (test code = 789-8) See_Comment L [Automated IKOTECHa ge] The system which generated this result transmitted reference range: 3.93 - 5.25 10*6/?L. The reference range was not used to interpret this result as normal/abnormal. HGB (test code = 718-7) 12.0 g/dL 11.6-15.0 HCT (test code = 4544-3) 35.4 % 35.7-45.2 L MCV (test code = 787-2) 93.4 fL 80.6-95.5 MCH (test code = 785-6) 31.7 pg 25.9-32.8 MCHC (test code = 786-4) 33.9 g/dL 31.6-35.1 RDW-SD (test code = 81753-1) 46.5 fL 39.0-49.9 RDW-CV (test code = 788-0) 13.7 % 12.0-15.5 PLT (test code = 777-3) See_Comment [Automated IKOTECHa ge] The system which generated this result transmitted reference range: 166 - 358 10*3/?L. The reference range was not used to interpret this result as normal/abnormal. MPV (test code = 95848-9) 12.1 fL 9.5-12.9 NRBC/100 WBC (test code = 5089286436) See_Comment [Automated [employer] ssage] The system which generated this result transmitted reference range: 0.0 - 10.0 /100 WBCs. The reference range was not used to interpret this result as normal/abnormal. NRBC x10^3 (test code = 0788546701) See_Comment [Automated IKOTECHa ge] The system which generated this result transmitted reference range: 10*3/?L. The reference range was not used to interpret this result as normal/abnormal. GRAN MAT (NEUT) % (test code = 770-8) 51.8 % IMM GRAN % (test code = 6494133306) 0.10 % LYMPH % (test code = 736-9) 28.0 % MONO % (test code = 5905-5) 15.1 % EOS % (test code = 713-8) 4.3 % BASO % (test code = 706-2) 0.7 % GRAN MAT x10^3(ANC) (test code = 1484307971) 4.71 10*3/uL 1.88-7.09 IMM GRAN x10^3 (test code = 4507284539) 0.00-0.06 LYMPH x10^3 (test code = 731-0) 2.54 10*3/uL 1.32-3.29 MONO x10^3 (test code = 742-7) 1.37 10*3/uL 0.33-0.92 H EOS x10^3 (test code = 711-2) 0.39 10*3/uL 0.03-0.39 BASO x10^3 (test code = 704-7) 0.06 10*3/uL 0.01-0.07 Lab Interpretation (test code = 00590-9) Abnormal [facility] WITH [id number] 11:37:09* Test Item Value Reference Range Interpretation Comme nts WBC (test code = 6690-2) See_Comment H [Automated messa ge] The system which generated this result transmitted reference range: 4.30 - 11.10 10*3/?L. The reference range was not used to interpret this result as normal/abnormal. RBC (test code = 789-8) See_Comment L [Automated messa ge] The system which generated this result transmitted reference range: 3.93 - 5.25 10*6/?L. The reference range was not used to interpret this result as normal/abnormal. HGB (test code = 718-7) 12.1 g/dL 11.6-15.0 HCT (test code = 4544-3) 36.7 % 35.7-45.2 MCV (test code = 787-2) 95.6 fL 80.6-95.5 H MCH (test code = 785-6) 31.5 pg 25.9-32.8 MCHC (test code = 786-4) 33.0 g/dL 31.6-35.1 RDW-SD (test code = 87910-4) 48.3 fL 39.0-49.9 RDW-CV (test code = 788-0) 13.6 % 12.0-15.5 PLT (test code = 777-3) See_Comment [Automated messa ge] The system which generated this result transmitted reference range: 166 - 358 10*3/?L. The reference range was not used to interpret this result as normal/abnormal. MPV (test code = 87995-5) 12.0 fL 9.5-12.9 NRBC/100 WBC (test code = 6929088271) See_Comment [Automated me ssage] The system which generated this result transmitted reference range: 0.0 - 10.0 /100 WBCs. The reference range was not used to interpret this result as normal/abnormal. NRBC x10^3 (test code = 5140603824) See_Comment [Automated messa ge] The system which generated this result transmitted reference range: 10*3/?L. The reference range was not used to interpret this result as normal/abnormal. GRAN MAT (NEUT) % (test code = 770-8) 59.1 % IMM GRAN % (test code = 6282448768) 0.30 % LYMPH % (test code = 736-9) 21.6 % MONO % (test code = 5905-5) 15.2 % EOS % (test code = 713-8) 3.3 % BASO % (test code = 706-2) 0.5 % GRAN MAT x10^3(ANC) (test code = 1232865051) 6.97 10*3/uL 1.88-7.09 IMM GRAN x10^3 (test code = 6343331355) 0.04 10*3/uL 0.00-0.06 LYMPH x10^3 (test code = 731-0) 2.55 10*3/uL 1.32-3.29 MONO x10^3 (test code = 742-7) 1.79 10*3/uL 0.33-0.92 H EOS x10^3 (test code = 711-2) 0.39 10*3/uL 0.03-0.39 BASO x10^3 (test code = 704-7) 0.06 10*3/uL 0.01-0.07 Lab Interpretation (test code = 10438-3) Abnormal [facility] WITH [id number] 11:37:09* Test Item Value Reference Range Interpretation Comme nts WBC (test code = 6690-2) See_Comment H [Automated messa ge] The system which generated this result transmitted reference range: 4.30 - 11.10 10*3/?L. The reference range was not used to interpret this result as normal/abnormal. RBC (test code = 789-8) See_Comment L [Automated messa ge] The system which generated this result transmitted reference range: 3.93 - 5.25 10*6/?L. The reference range was not used to interpret this result as normal/abnormal. HGB (test code = 718-7) 12.1 g/dL 11.6-15.0 HCT (test code = 4544-3) 36.7 % 35.7-45.2 MCV (test code = 787-2) 95.6 fL 80.6-95.5 H MCH (test code = 785-6) 31.5 pg 25.9-32.8 MCHC (test code = 786-4) 33.0 g/dL 31.6-35.1 RDW-SD (test code = 51146-0) 48.3 fL 39.0-49.9 RDW-CV (test code = 788-0) 13.6 % 12.0-15.5 PLT (test code = 777-3) See_Comment [Automated messa ge] The system which generated this result transmitted reference range: 166 - 358 10*3/?L. The reference range was not used to interpret this result as normal/abnormal. MPV (test code = 84029-1) 12.0 fL 9.5-12.9 NRBC/100 WBC (test code = [id number]) See_Comment [Automated [place] ssage] The system which generated this result transmitted reference range: 0.0 - 10.0 /100 WBCs. The reference range was not used to interpret this result as normal/abnormal. NRBC x10^3 (test code = [id number]) See_Comment [Automated messa ge] The system which generated this result transmitted reference range: 10*3/?L. The reference range was not used to interpret this result as normal/abnormal. GRAN MAT (NEUT) % (test code = 770-8) 59.1 % IMM GRAN % (test code = [id number]) 0.30 % LYMPH % (test code = 736-9) 21.6 % MONO % (test code = 5905-5) 15.2 % EOS % (test code = 713-8) 3.3 % BASO % (test code = 706-2) 0.5 % GRAN MAT x10^3(ANC) (test code = [id number]) 6.97 10*3/uL 1.88-7.09 IMM GRAN x10^3 (test code = 6119108389) 0.04 10*3/uL 0.00-0.06 LYMPH x10^3 (test code = 731-0) 2.55 10*3/uL 1.32-3.29 MONO x10^3 (test code = 742-7) 1.79 10*3/uL 0.33-0.92 H EOS x10^3 (test code = 711-2) 0.39 10*3/uL 0.03-0.39 BASO x10^3 (test code = 704-7) 0.06 10*3/uL 0.01-0.07 Lab Interpretation (test code = 31942-8) Abnormal [facility] METABOLIC PANEL (NA, K, CL, CO2, GLUCOSE, BUN, CREATININE, CA)2022-08-04 11:36:13* Test Item Value Reference Range Interpretation Comme nts NA (test code = 1548050399) 134 mmol/L 135-145 L K (test code = 4688590121) 3.9 mmol/L 3.5-5.0 CL (test code = 5585062646) 97 mmol/L 98-108 L CO2 TOTAL (test code = 7841954319) 28 mmol/L 23-31 AGAP (test code = 4272391344) 2-16 BUN (test code = 0839723118) 28 mg/dL 7-23 H GLUCOSE (test code = 6696479436) 110 mg/dL 70-110 CREATININE (test code = 0678114832) 0.98 mg/dL 0.50-1.04 CALCIUM (test code = 3969962360) 9.0 mg/dL 8.6-10.6 eGFR (test code = 0390045579) mL/min/1.73m2 MIKEY (test code = MIKEY) Association of [...] or abnormalities in imaging tests). Lab Interpretation (test code = 20289-2) [facility]:13* Test Item Value Reference Range Interpretation Comme nts MAGNESIUM (test code = 4199978237) 1.9 mg/dL 1.7-2.4 Lab Interpretation (test cod e = 39276-4) [facility] (NA, K, CL, CO2, GLUCOSE, BUN, CREATININE, CA)2022-08-04 11:36:13* Test Item Value Reference Range Interpretation Comme nts NA (test code = 8457248482) 134 mmol/L 135-145 L K (test code = 4127489545) 3.9 mmol/L 3.5-5.0 CL (test code = 2956749939) 97 mmol/L 98-108 L CO2 TOTAL (test code = 6318711064) 28 mmol/L 23-31 AGAP (test code = 4343888025) 2-16 BUN (test code = 5056296955) 28 mg/dL 7-23 H GLUCOSE (test code = 7517427920) 110 mg/dL 70-110 CREATININE (test code = 0042089984) 0.98 mg/dL 0.50-1.04 CALCIUM (test code = 0118435245) 9.0 mg/dL 8.6-10.6 eGFR (test code = 3747352000) mL/min/1.73m2 MIKEY (test code = MIKEY) Association of [...] or abnormalities in imaging tests). Lab Interpretation (test code = 07435-3) [facility] 11:36:13* Test Item Value Reference Range Interpretation Comme nts MAGNESIUM (test code = 7088448481) 1.9 mg/dL 1.7-2.4 Lab Interpretation (test cod e = 31438-1) [facility]22-[facility]-29 22:39:30* Test Item Value Reference Range Interpretation Comme nts Height (test code = 0969578648) in Weight (test code = 2715257745) lbs Systolic BP (test code = 8855949840) mmHg Diastolic BP (test code = 0720499628) mmHg Heart Rate (test code = 0492809431) bpm BSA (test code = 3597855305) 1.40 m2 TASV (test code = 1856812898) 13.5 cm/s LAV(MOD-sp4) (test code = 6947774591) 27.60 mL E wave decelartion time (test code = 8037898653) 0.24 s MV Peak E Luzma (test code = 1577474226) 80.1 cm/s MV Peak A Luzma (test code = 2365321817) 45.8 cm/s E/A ratio (test code = 4044361726) ratio LVOT peak luzma (test code = 8565922616) 87.0 cm/s LVOT mn grad (test code = 1670803194) mmHg AV LVOT peak gradient (test code = 5938999659) mmHg LVOT peak VTI (test code = 4868984776) 18.4 cm LV V1 mean (test code = 2901116429) 54.70 cm/s LA Volume Index (BP) (test code = 9340396173) 16.8 mL/m2 LA volume (BP) (test code = 8713564173) 23.4 mL LAV(MOD-sp2) (test code = 6549914930) 20.70 mL Tapse (test code = 8969441843) 2.13 cm LVIDS (test code = 4285282956) 0.00 cm Left Ventricular End Systolic Volume by Teichholz Method (test code = 8499122) 0.00 mL LVIDD (test code = 6261631245) 3.70 cm Left Ventricular End Diastolic Volume by Teichholz Method (test code = 3762777) 59.6 mL IVS (test code = 3881083871) 0.82 cm Interventricular Septum Diastolic Thickness by 2D (test code = 8561527) 0.82 cm LVPWD (test code = 5309649030) 0.94 cm PW (test code = 1005976413) 0.94 cm 0.6-1.1 MV E/e' septal (test code = 5793026558) 9.7 cm/s Radiology Study observation (narrative) (test code = 31960-9) MIKEY (test code = MIKEY) ?Left?Ventricle: Left [...] mL of Definity ultrasound enhancing agent used. [facility]29 22:39:30* Test Item Value Reference Range Interpretation Comme nts Height (test code = 1177577785) in Weight (test code = 1414760559) lbs Systolic BP (test code = 2567483064) mmHg Diastolic BP (test code = 6661775369) mmHg Heart Rate (test code = 7852460312) bpm BSA (test code = 4500191223) 1.40 m2 TASV (test code = 6521201322) 13.5 cm/s LAV(MOD-sp4) (test code = 4727652864) 27.60 mL E wave decelartion time (test code = 0684147423) 0.24 s MV Peak E Luzma (test code = 6745867379) 80.1 cm/s MV Peak A Luzma (test code = 8468861536) 45.8 cm/s E/A ratio (test code = 9867051201) ratio LVOT peak luzma (test code = 2439971559) 87.0 cm/s LVOT mn grad (test code = 5238214202) mmHg AV LVOT peak gradient (test code = 3026753337) mmHg LVOT peak VTI (test code = 7801108753) 18.4 cm LV V1 mean (test code = 2631430429) 54.70 cm/s LA Volume Index (BP) (test code = 0448017895) 16.8 mL/m2 LA volume (BP) (test code = 9154546054) 23.4 mL LAV(MOD-sp2) (test code = 1570458278) 20.70 mL Tapse (test code = 5885615206) 2.13 cm LVIDS (test code = 4147711497) 0.00 cm Left Ventricular End Systolic Volume by Teichholz Method (test code = 3842189) 0.00 mL LVIDD (test code = 0258335450) 3.70 cm Left Ventricular End Diastolic Volume by Teichholz Method (test code = 7283045) 59.6 mL IVS (test code = 0546427783) 0.82 cm Interventricular Septum Diastolic Thickness by 2D (test code = 8009631) 0.82 cm LVPWD (test code = 1173697149) 0.94 cm PW (test code = 5391495519) 0.94 cm 0.6-1.1 MV E/e' septal (test code = 9954113761) 9.7 cm/s Radiology Study observation (narrative) (test code = 30469-9) MIKEY (test code = MIKEY) ?Left?Ventricle: Left [...] mL of Definity ultrasound enhancing agent used. [facility] Confirmation (Lab Only)2022-07-29 13:12:44* Test Item Value Reference Range Interpretation Comme nts ABO & RH (test code = 20) O Positive Performed at [facility] [address] Free: [phone] No. [id number] [facility] Confirmation (Lab Only)2022-07-29 13:12:44* Test Item Value Reference Range Interpretation Comme nts ABO & RH (test code = 20) O Positive Performed at [facility] [place] [address]Toll Free: [phone] No. [id number] [facility] - ONCE Vtaghct5482-18-53 11:59:49* Test Item Value Reference Range Interpretation Comme nts ABO & RH (test code = 20) O POSITIVE Performed at [facility] Services - [place] [address]Toll Free: [phone] No. [id number] IAT (test code = 1185) Negative Performed at [facility] Laboratory Services - [address] Free: [phone] No. [id number] [facility] - ONCE Rujhmeg8090-54-67 11:59:49* Test Item Value Reference Range Interpretation Comme nts ABO & RH (test code = 20) O POSITIVE Performed at [facility] Services - [address] Free: [phone] No. [id number] IAT (test code = 1185) Negative Performed at [facility] Services - [address] Free: [phone] No. [id number] [facility]20[facility] 23:49:27* Test Item Value Reference Range Interpretation Comme nts LIPASE (test code = 4652670764) 113 U/L 0-220 Lab Interpretation (test cod e = 12578-0) Normal [facility] 23:49:27* Test Item Value Reference Range Interpretation Comme nts LIPASE (test code = 1445971870) 113 U/L 0-220 Lab Interpretation (test cod e = 37883-7) Normal [facility] CenterCBC WITH [id number] 23:41:45* Test Item Value Reference Range Interpretation Comme nts WBC (test code = 6690-2) See_Comment H [Automated message] The system which generated this result transmitted reference range: 4.30 - 11.10 10*3/?L. The reference range was not used to interpret this result as normal/abnormal. RBC (test code = 789-8) See_Comment [Automated message] The system which generated this result transmitted reference range: 3.93 - 5.25 10*6/?L. The reference range was not used to interpret this result as normal/abnormal. HGB (test code = 718-7) 14.4 g/dL 11.6-15.0 HCT (test code = 4544-3) 43.1 % 35.7-45.2 MCV (test code = 787-2) 93.7 fL 80.6-95.5 MCH (test code = 785-6) 31.3 pg 25.9-32.8 MCHC (test code = 786-4) 33.4 g/dL 31.6-35.1 RDW-SD (test code = 16487-8) 45.1 fL 39.0-49.9 RDW-CV (test code = 788-0) 13.2 % 12.0-15.5 PLT (test code = 777-3) See_Comment [Automated message] The system which generated this result transmitted reference range: 166 - 358 10*3/?L. The reference range was not used to interpret this result as normal/abnormal. MPV (test code = 45856-0) 12.5 fL 9.5-12.9 NRBC/100 WBC (test code = 8484314476) See_Comment [Automated message] The system which generated this result transmitted reference range: 0.0 - 10.0 /100 WBCs. The reference range was not used to interpret this result as normal/abnormal. NRBC x10^3 (test code = 0569106348) See_Comment [Automated message] The system which generated this result transmitted reference range: 10*3/?L. The reference range was not used to interpret this result as normal/abnormal. GRAN MAT (NEUT) % (test code = 770-8) 90.7 % IMM GRAN % (test code = 6109874621) 0.30 % LYMPH % (test code = 736-9) 7.7 % MONO % (test code = 5905-5) 0.7 % EOS % (test code = 713-8) 0.1 % BASO % (test code = 706-2) 0.5 % GRAN MAT x10^3(ANC) (test code = 9287894626) 13.90 10*3/uL 1.88-7.09 H IMM GRAN x10^3 (test code = 1227570151) 0.04 10*3/uL 0.00-0.06 LYMPH x10^3 (test code = 731-0) 1.18 10*3/uL 1.32-3.29 L MONO x10^3 (test code = 742-7) 0.10 10*3/uL 0.33-0.92 L EOS x10^3 (test code = 711-2) 0.03-0.39 L BASO x10^3 (test code = 704-7) 0.08 10*3/uL 0.01-0.07 H Lab Interpretation (test code = 69129-1) Abnormal [facility] WITH [id number] 23:41:45* Test Item Value Reference Range Interpretation Comme nts WBC (test code = 6690-2) See_Comment H [Automated message] The system which generated this result transmitted reference range: 4.30 - 11.10 10*3/?L. The reference range was not used to interpret this result as normal/abnormal. RBC (test code = 789-8) See_Comment [Automated message] The system which generated this result transmitted reference range: 3.93 - 5.25 10*6/?L. The reference range was not used to interpret this result as normal/abnormal. HGB (test code = 718-7) 14.4 g/dL 11.6-15.0 HCT (test code = 4544-3) 43.1 % 35.7-45.2 MCV (test code = 787-2) 93.7 fL 80.6-95.5 MCH (test code = 785-6) 31.3 pg 25.9-32.8 MCHC (test code = 786-4) 33.4 g/dL 31.6-35.1 RDW-SD (test code = 39410-6) 45.1 fL 39.0-49.9 RDW-CV (test code = 788-0) 13.2 % 12.0-15.5 PLT (test code = 777-3) See_Comment [Automated message] The system which generated this result transmitted reference range: 166 - 358 10*3/?L. The reference range was not used to interpret this result as normal/abnormal. MPV (test code = 84912-8) 12.5 fL 9.5-12.9 NRBC/100 WBC (test code = 6788008010) See_Comment [Automated message] The system which generated this result transmitted reference range: 0.0 - 10.0 /100 WBCs. The reference range was not used to interpret this result as normal/abnormal. NRBC x10^3 (test code = 6323935092) See_Comment [Automated message] The system which generated this result transmitted reference range: 10*3/?L. The reference range was not used to interpret this result as normal/abnormal. GRAN MAT (NEUT) % (test code = 770-8) 90.7 % IMM GRAN % (test code = 4525737281) 0.30 % LYMPH % (test code = 736-9) 7.7 % MONO % (test code = 5905-5) 0.7 % EOS % (test code = 713-8) 0.1 % BASO % (test code = 706-2) 0.5 % GRAN MAT x10^3(ANC) (test code = 9790629519) 13.90 10*3/uL 1.88-7.09 H IMM GRAN x10^3 (test code = 5743572962) 0.04 10*3/uL 0.00-0.06 LYMPH x10^3 (test code = 731-0) 1.18 10*3/uL 1.32-3.29 L MONO x10^3 (test code = 742-7) 0.10 10*3/uL 0.33-0.92 L EOS x10^3 (test code = 711-2) 0.03-0.39 L BASO x10^3 (test code = 704-7) 0.08 10*3/uL 0.01-0.07 H Lab Interpretation (test code = 03965-9) Abnormal [facility] WITH SWAZEAALNYTS9480-33-00 15:56:00* Test Item Value Reference Range Interpretation Comme nts WBC (test code = 6690-2) See_Comment [Automated messa ge] The system which generated this result transmitted reference range: 4.30 - 11.10 10*3/?L. The reference range was not used to interpret this result as normal/abnormal. RBC (test code = 789-8) See_Comment [Automated messa ge] The system which generated this result transmitted reference range: 3.93 - 5.25 10*6/?L. The reference range was not used to interpret this result as normal/abnormal. HGB (test code = 718-7) 14.1 g/dL 11.6-15 HCT (test code = 4544-3) 42.3 % 35.7-45.2 MCV (test code = 787-2) 94.6 fL 80.6-95.5 MCH (test code = 785-6) 31.5 pg 25.9-32.8 MCHC (test code = 786-4) 33.3 g/dL 31.6-35.1 RDW-SD (test code = 93756-9) 46.0 fL 39-49.9 RDW-CV (test code = 788-0) 13.2 % 12-15.5 PLT (test code = 777-3) See_Comment [Automated messa ge] The system which generated this result transmitted reference range: 166 - 358 10*3/?L. The reference range was not used to interpret this result as normal/abnormal. MPV (test code = 50701-3) 11.8 fL 9.5-12.9 NRBC/100 WBC (test code = 1747004377) See_Comment [Automated [place] ssage] The system which generated this result transmitted reference range: 0.0 - 10.0 /100 WBCs. The reference range was not used to interpret this result as normal/abnormal. NRBC x10^3 (test code = 3725032113) <0.01 See_Comment [Automated messa ge] The system which generated this result transmitted reference range: 10*3/?L. The reference range was not used to interpret this result as normal/abnormal. GRAN MAT (NEUT) % (test code = 770-8) 57.0 % IMM GRAN % (test code = 4747297585) 0.40 % LYMPH % (test code = 736-9) 29.6 % MONO % (test code = 5905-5) 9.6 % EOS % (test code = 713-8) 2.2 % BASO % (test code = 706-2) 1.2 % GRAN MAT x10^3(ANC) (test code = 5228133021) 5.49 10*3/uL 1.88-7.09 IMM GRAN x10^3 (test code = 2355608184) 0.04 10*3/uL 0-0.06 LYMPH x10^3 (test code = 731-0) 2.86 10*3/uL 1.32-3.29 MONO x10^3 (test code = 742-7) 0.93 10*3/uL 0.33-0.92 H EOS x10^3 (test code = 711-2) 0.21 10*3/uL 0.03-0.39 BASO x10^3 (test code = 704-7) 0.12 10*3/uL 0.01-0.07 H Lab Interpretation (test code = 50328-5) [facility]normal [facility] Lxzpxofanysr0315-98-83 23:33:00* Test Item Value Reference Range Interpretation Comme [...] code = ALYMPH) 3.4 K/cumm 0.5-4.6 N Gaston Abs (test code = AMONO) 0.7 K/cumm 0.0-1.2 N Eos Abs (test code = AEOS) 0.10 K/cumm 0.00-0.74 N Baso Abs (test code = ABASO) 0.1 K/cumm 0.00-0.21 N Lipid Hpeopbi9353-11-04 23:22:00* Test Item Value Reference Range Interpretation Comme nts Cholesterol (test code = CHOL) 136 mg/dL 0-200 N Triglycerides (test code = TRIG) 100 mg/dL 9-200 N HDL (test code = HDL) 53 mg/dL 50-60 N Chol/HDL (test code = CHOLPHDL) 2.6 Ratio 0.0-4.4 N LDL, Calculated (test code = LDLC) 63 mg/dL 0-130 N (NOTE)RISK OF HEART DISEASEPublished by Slovenian Heart AssociationAnalyte Optimal Boderline Increased RiskCHOL <200 200-239 >240TRIG <150 150-199 >200HDL Male: >60 <40HDL Female: >60 <50LDL <100 130-159 >160LDL NEAR OPTIMAL IS 100-129 VLDL (test code = VLDL) 20 mg/dL 5-40 N LDL/HDL (test code = LDLPHDL) 1 Comprehensive Metabolic [id number] 23:22:00* Test Item Value Reference Range Interpretation Comme nts Sodium (test code = NA) 130 mmol/L 135-145 L Potassium (test code = K) 4.1 mmol/L 3.5-5.1 N Chloride (test code = CL) 93 mmol/L 98-105 L Carbon Dioxide (test code = CO2) 25 mmol/L 22-29 N Glucose (test code = GLU) 95 mg/dL 70-115 N Blood Urea Nitrogen (test code = BUN) 10 mg/dL 8-23 N Creatinine (test code = CREAT) 0.9 mg/dL 0.5-0.9 N Calcium (test code = CA) 10.0 mg/dL 8.3-10.5 N Prot Total (test code = TP) 7.0 g/dL 6.4-8.3 N Albumin (test code = ALB) 4.4 g/dL 3.5-5.2 N A/G Ratio (test code = AGRATIO) 1.7 Ratio Globulin (test code = GLOB) 2.6 2.9-3.1 L Bili Total (test code = TBIL) 0.4 mg/dL 0.1-0.9 N Alk Phos (test code = APHOS) 118 U/L 35-104 H AST (test code = AST) 17 U/L 1-32 N ALT (test code = ALT) 10 U/L 1-33 N BUN/Creatinine Ratio (test code = BCRATIO) 11.1 Anion Gap (test code = AGAP) 12 mmol/L 7-16 N Estimated GFR (test code = GFR) >60 mL/min/1.73m2 eGFR (estimated Glomerular Filtration Rate) is an estimated value,calculated from the patient's serum creatinine using the MDRD equation.It is NOT the patient's actual GFR. The eGFR provides a more clinicallyuseful measure of kidney disease than serum creatinine alone.This calculation takes sex and race into account, if the informationis provided. If the race is not provided, and the patient isAfrican-Slovenian, multiply by 1.212. If sex is not provided, and thepatient is female, multiply by 0.742. Results for patients <18 years ofage have not been validated by the MDRD study and should be interpretedwith caution.eGFR Result Interpretation:eGFR > or = 60 is in the Normal RangeeGFR < 60 may mean kidney diseaseeGFR < 15 may mean kidney failureRanges recommended by the National Kidney Foundation,http://nkdep .nih.gov Notes Date/Time Note Provider Source 2024-03-05 12:05:28 Images from the original note were not included. Aldo Graham is a 74 year old female Patient is calling as she is needing to follow up with Dr. Martin per JACQUELINE 09/23/2022. She is to have a CT Cspine, in order to be scheduled, she indicated that at the time it was cost prohibited to have one completed. She will contact her health insurance for information coverage and will call back to have orders sent externally. Offered patient to be scheduled with [facility], but she is only requesting to be seen by Dr. Martin. She understands that new imaging is needed. Patient is reporting that in January 2023, she fell and bruised her left arm. Not having any symptoms at this time. Jacy Marks [facility] 2023-03-08 13:30:54 Formatting of this n ote might be different from the original. MD order/OT re evaluation paperwork signed by provider and faxed to [facility] at this time Betty Fraga RN [facility]"
[2024-11-09] MEDS ORDERED: ONDANSETRON 4 MG/2 ML VIAL ONE (11:41)
[2024-11-09] MEDS ORDERED: NA CHLORIDE 0.9% 1,000 ML ONE (11:41)
[2024-11-09 11:49] LABS: Absolute Basophils 0.1 K/uL (0-0.5); Absolute Lymphocytes (CBC) 0.8 K/uL (0.7-4.9); Absolute Monocytes 1.1 K/uL (0.1-1.3); Absolute Neutrophil 17.2 K/uL (1.8-8.0); Basophils % 0.3 % (0-1.3); Hematocrit 38.3 % (36.0-45.0); Lymphocytes % 4.1 % (15.3-44.8); MCH 30.4 pg (27.0-35.0); MCV 89.3 fL (80-100); MPV 10.3 fL (7.6-11.3); Monocytes % 5.9 % (3.3-12.3); Neutrophils % 89.7 % (41.7-73.7); Platelets 211 thou/uL (152-406); RBC Red Blood Cell Count 4.28 M/uL (3.86-4.86); Red Cell Distribution Width 13.9 % (12.1-15.2)
[2024-11-09 12:14] LABS: Albumin 3.3 g/dL (3.4-5.0); Albumin/Globulin Ratio 0.8 (1.1-1.8); Anion Gap 9.6 mEq/L (5.0-15.0); Bilirubin Total 1.5 mg/dL (0.2-1.0); Protein, Total 7.3 g/dL (6.4-8.2); Troponin High Sensitivity 19.3 pg/mL (<58.9)
[2024-11-09 12:15] LABS: Potassium 2.6 mEq/L (3.5-5.1)
[2024-11-09 12:44] LABS: Band Neutrophils 2 % (0-1); Blood Morphology Comment NOT SEEN (NOT SEEN); Differential Total Cells Count 100; Lymphocytes 4 % (15-42); Monocytes 4 % (0-10); Platelet Estimate ADEQ; Segmented Neutrophils 89 % (40-80)
--- NOTE | 2024-11-09 14:13 | RAD REPORT ---
EXAMINATION: CT Abdomen Pelvis W Contrast CLINICAL INDICATION: Female, 74 years old. vomiting TECHNIQUE: CT abdomen and pelvis was performed, after the administration of IV contrast, as per [facility] protocol. Axial, sagittal and coronal reconstructions were obtained. One or more of the following dose reduction techniques were used: Automated exposure control, adjustment of the mA and k V according to patient size, and iterative reconstruction. Unless otherwise specified, incidental findings do not require dedicated imaging follow-up. COMPARISON: No prior exam. FINDINGS: LOWER CHEST: The visualized lung bases are clear. LIVER: Normal in size and contour. No focal lesion. BILIARY SYSTEM: No suspicious abnormalities. SPLEEN: Normal size. No focal lesion. PANCREAS: No mass, ductal dilation, or randee-pancreatic fluid. ADRENALS: Normal; no mass. KIDNEYS: Normal size and contour. No hydronephrosis. Small cortical fluid density cysts, largest at t he right lower pole measuring 1.7 cm. Most of these are too small to characterize but statistically would suggest benign cysts. URINARY BLADDER: Small volume gas with air-fluid level in the antidependent bladder lumen with no dis crete wall thickening or calculi.. GASTROINTESTINAL TRACT: No evidence of free air, significant intra-abdominal free fluid, bowel obstru ction or abscess. Distal colonic diverticulosis without evidence of acute diverticulitis. APPENDIX: Normal appendix. LYMPH NODES: No lymphadenopathy. MUSCULOSKELETAL: No acute or suspicious osseous abnormality. ADDITIONAL FINDINGS: None. IMPRESSION: Small volume layering gas within the urinary bladder lumen. Correlate with history of recent catheter ization, if not present, this could relate to ongoing infection with gas producing organism. No other acute or concerning abnormalities seen in the abdomen or pelvis. Incidental findings as abov e.
--- NOTE | 2024-11-09 14:46 | ER ---
Nurse's Notes [facility] Name: Germania Bañuelos Age: 74 yrs Sex: Female : 1950 Arrival Date: 11/09/2024 Time: 09:54 Bed 4 Private MD: Diagnosis: Nausea and vomiting;Diarrhea;Hypokalemia;Leukocytosis Presentation: 11/09 10:15 Chief complaint: Patient states: N/V X 1 week. Dry heaves, unable to keep food down. ld1 Fatigue. Headache. Coronavirus screen: At this time, the client does not indicate any symptoms associated with coronavirus-19. Ebola Screen: No symptoms or risks identified at this time. Initial Sepsis Screen: Does the patient meet any 2 criteria? No. Patient's initial sepsis screen is negative. Does the patient have a suspected source of infection? No. Patient's initial sepsis screen is negative. Risk Assessment: Do you want to hurt yourself or someone else? Patient reports no desire to harm self or others. Onset of symptoms was November 09, 2024 at 10:16. 10:15 Method Of Arrival: Ambulatory ld1 10:15 Acuity: MIGUEL 3 ld1 Triage Assessment: 10:15 General: Appears in no apparent distress. comfortable, Behavior is calm, cooperative, ld1 appropriate for age. Pain: Denies pain. EENT: No signs and/or symptoms were reported regarding the EENT system. Neuro: Level of Consciousness is awake, alert, obeys commands, Oriented to person, place, time, situation. Cardiovascular: Capillary refill < 3 seconds Patient's skin is warm and dry. Respiratory: Airway is patent Respiratory effort is even, unlabored. GI: Abdomen is flat, non-distended, Reports intolerance of food, nausea, vomiting. : No signs and/or symptoms were reported regarding the genitourinary system. Derm: No signs and/or symptoms reported regarding the dermatologic system. Musculoskeletal: No signs and/or symptoms reported regarding the musculoskeletal system. Historical: - Allergies: 10:15 Darvon; ld1 10:15 Demerol; ld1 10:15 Tamiflu; ld1 - PMHx: 10:15 Hyperlipidemia; COPD; Hypertension; Osteoporosis; shoulder pain; ld1 - PSHx: 10:15 neck; ld1 - Immunization history:: Adult Immunizations up to date. - Infectious Disease History:: Denies. - Social history:: Smoking status: Patient denies any tobacco usage or history of. Screenin:47 [facility] ED Fall Risk Assessment (Adult) History of falling in the last 3 months, hb including since admission No falls in past 3 months (0 pts) Confusion or Disorientation No (0 pts) Intoxicated or Sedated No (0 pts) Impaired Gait No (0 pts) Mobility Assist Device Used No (0 pt) Altered Elimination No (0 pt) Score/Fall Risk Level 0 - 2 = Low Risk Oriented to surroundings, Maintained a safe environment, Educated pt \T\ family on fall prevention, incl call for assistance when getting out of bed. Abuse screen: Denies threats or abuse. Denies injuries from another. Nutritional screening: No deficits noted. Tuberculosis screening: No symptoms or risk factors identified. Assessment: 11:47 General: Appears in no apparent distress. ill, Behavior is calm, cooperative. Pain: hb Denies pain. Neuro: Level of Consciousness is awake, alert, obeys commands, Oriented to person, place, time, situation. Cardiovascular: Patient's skin is warm and dry. Respiratory: Respiratory effort is even, unlabored, Respiratory pattern is regular, symmetrical. GI: Reports diarrhea, nausea, vomiting. : No signs and/or symptoms were reported regarding the genitourinary system. EENT: No signs and/or symptoms were reported regarding the EENT system. Derm: Skin is pink, warm \T\ dry. Musculoskeletal: No signs and/or symptoms reported regarding the musculoskeletal system. 13:45 Reassessment: Patient appears in no apparent distress at this time. Patient and/or hb family updated on plan of care and expected duration. Pain level reassessed. Patient is alert, oriented x 3, equal unlabored respirations, skin warm/dry/pink. 14:58 Reassessment: Patient appears in no apparent distress at this time. No changes from previously documented assessment. Patient is alert, oriented x 3, equal unlabored respirations, skin warm/dry/pink. 15:40 Reassessment: Patient appears in no apparent distress at this time. Patient and/or hb family updated on plan of care and expected duration. Pain level reassessed. Patient is alert, oriented x 3, equal unlabored respirations, skin warm/dry/pink. 15:45 Reassessment: Dr. Crow at bedside. hb Vital Signs: 10:15 BP 152 / 80; Pulse 106; Resp 18; Temp 98.4(O); Pulse Ox 96% on R/A; Weight 45.81 kg; ld1 Height 4 ft. 11 in. ; Pain 0/10; 13:00 BP 148 / 80; Pulse 88; Resp 16; Pulse Ox 99% on R/A; hb 15:00 BP 136 / 86; Pulse 89; Resp 15; Pulse Ox 98% ; hb 10:15 Body Mass Index 20.40 (45.81 kg, 149.86 cm) ld1 10:15 Pain Scale: Adult ld1 ED Course: 09:59 Patient arrived in ED. cj3 10:01 Negrito Nassar MD is Attending Physician. rt 10:15 Arm band placed on right wrist. ld1 10:17 Triage completed. ld1 11:40 Initial lab(s) drawn, by me, sent to lab. Inserted saline lock: 22 gauge in left hb antecubital area, using aseptic technique. Blood collected. Flushed with 10 mL NS. 11:40 CBC with Diff Sent. hb 11:40 CMP Sent. hb 11:40 Lipase Sent. hb 11:47 Patient has correct armband on for positive identification. Bed in low position. Call hb light in reach. Provided Education on: tests, result times. 12:42 CT Abd/Pelvis - IV Contrast Only In Process Unspecified. EDMS 12:47 EKG done, by ED staff, reviewed by Negrito Nassar MD. jl7 14:45 Scotty Saleh MD is Hospitalizing Provider. rt 17:16 No provider procedures requiring assistance completed. Patient admitted, IV remains in ap3 place. Administered Medications: 11:45 Drug: Ondansetron IVP 4 mg IVP once; over 2 minutes Route: IVP; Site: left antecubital; hb 11:45 Drug: NS 0.9% IV 1000 ml IV at 1 bolus Per protocol; to be given as a bolus over 60 hb minutes Route: IV; Rate: 1 bolus; Site: left antecubital; 15:59 Drug: Piperacillin-Tazobactam IVPB 3.375 grams IVPB once over 60 mins; (mix in NS 100 hb mL) Route: IVPB; Infused Over: 60 mins; Site: left antecubital; 17:06 Follow up: Response: No adverse reaction; IV Status: Completed infusion; IV Intake: hb 100ml 15:59 Drug: Potassium Chloride IV 40 mEq IV at calculated rate once; administer over 4 hours hb Route: IV; Rate: calculated rate; Site: left antecubital; 16:00 Drug: Potassium Chloride IV 40 mEq IV at calculated rate once; administer over 4 hours hb Route: IV; Rate: calculated rate; Site: left antecubital; 17:05 Drug: Potassium PO Effervescent Tablet 50 mEq PO once; dissolve in 4 ounces of water or hb juice Route: PO; Medication: 11:47 VIS not applicable for this client. hb Intake: 17:06 IV: 100ml; Total: 100ml. hb Outcome: 14:46 Decision to Hospitalize by Provider. rt 17:17 Admitted to Med/surg ap3 17:17 Condition: good 17:17 Instructed on the need for admit, 17:17 Patient left the ED. ap3 Signatures: Dispatcher [employer] EDMS Coretta Simons RN RN Bruno Shaver RN RN jl7 Macie Gonzalez RN RN ap3 Fina Adan RN RN ld1 Negrito Nassar MD MD rt Ariela Marte 3
--- NOTE | 2024-11-09 14:46 | EDPHYS ---
Physician Documentation [facility] Name: Germania Bañuelos Age: 74 yrs Sex: Female : 1950 Arrival Date: 11/09/2024 Time: 09:54 Bed 4 Private MD: ED Physician Negrito Nassar HPI: 11/09 12:45 This 74 yrs old Female presents to ER via Ambulatory with complaints of rt Nausea/Vomiting/Diarrhea, General Weakness, Cough. 12:45 Patient presents to the ED with 1 week of nausea, vomiting, diarrhea. The patient rt denies significant abdominal pain. States that she has not been keep anything down by mouth. Reports that she has had progressively worsening fatigue, generalized weakness. Symptoms are moderate in severity, no other aggravating or alleviating factors.. Historical: - Allergies: 10:15 Darvon; ld1 10:15 Demerol; ld1 10:15 Tamiflu; ld1 - PMHx: 10:15 Hyperlipidemia; COPD; Hypertension; Osteoporosis; shoulder pain; ld1 - PSHx: 10:15 neck; ld1 - Immunization history:: Adult Immunizations up to date. - Infectious Disease History:: Denies. - Social history:: Smoking status: Patient denies any tobacco usage or history of. ROS: 12:46 Cardiovascular: Negative for chest pain, palpitations, and edema, Respiratory: Negative rt for shortness of breath, cough, wheezing, and pleuritic chest pain, MS/Extremity: Negative for injury and deformity, Skin: Negative for injury, rash, and discoloration, 12:46 Constitutional: Positive for fatigue, Negative for fever, 12:46 Abdomen/GI: Positive for nausea, vomiting, and diarrhea, Exam: 12:46 Constitutional: This is a well developed, well nourished patient who is awake, alert, rt and in no acute distress. Head/Face: Normocephalic, atraumatic. Chest/axilla: Normal chest wall appearance and motion. Nontender with no deformity. No lesions are appreciated. Cardiovascular: Regular rate and rhythm with a normal S1 and S2. No gallops, murmurs, or rubs. Normal PMI, no JVD. No pulse deficits. Respiratory: Lungs have equal breath sounds bilaterally, clear to auscultation and percussion. No rales, rhonchi or wheezes noted. No increased work of breathing, no retractions or nasal flaring. Abdomen/GI: Soft, non-tender, with normal bowel sounds. No distension or tympany. No guarding or rebound. No evidence of tenderness throughout. Skin: Warm, dry with normal turgor. Normal color with no rashes, no lesions, and no evidence of cellulitis. MS/ Extremity: Pulses equal, no cyanosis. Neurovascular intact. Full, normal range of motion. 12:46 ENT: Dry mucous membranes. 12:46 ECG was reviewed by the Attending Physician. Vital Signs: 10:15 BP 152 / 80; Pulse 106; Resp 18; Temp 98.4(O); Pulse Ox 96% on R/A; Weight 45.81 kg; ld1 Height 4 ft. 11 in. ; Pain 0/10; 13:00 BP 148 / 80; Pulse 88; Resp 16; Pulse Ox 99% on R/A; hb 15:00 BP 136 / 86; Pulse 89; Resp 15; Pulse Ox 98% ; hb 10:15 Body Mass Index 20.40 (45.81 kg, 149.86 cm) ld1 10:15 Pain Scale: Adult ld1 MDM: 10:21 Medical Screening Exam initiated rt 17:55 Differential diagnosis: colitis, gastroenteritis, electrolyte disturbance. Data rt reviewed: vital signs, nurses notes, lab test result(s), EKG, radiologic studies. Consideration of Admission/Observation Escalation of care including admission/observation considered. Management of patient was discussed with the following: Hospitalist: Agrees to admit. I considered the following discharge prescriptions or medication management in the emergency department Medications were administered in the Emergency Department. See MAR. Independent interpretation of the following test(s) in the Emergency Department CT Scan: My interpretation is No bowel obstruction seen on interpretation of CT scan images. Care significantly affected by the following chronic conditions: Chronic Obstructive Pulmonary Disease. Counseling: I had a detailed discussion with the patient and/or guardian regarding the historical points, exam findings, and any diagnostic results supporting the discharge/admit diagnosis, lab results, radiology results, the need for further work-up and treatment in the hospital. Response to treatment: the patient's symptoms have mildly improved after treatment. 11/09 10:22 Order name: CBC with Diff; Complete Time: 14:04 rt 11/09 10:22 Order name: CMP; Complete Time: 12:43 rt 11/09 10:22 Order name: Lipase; Complete Time: 12:43 rt 11/09 10:22 Order name: Urinalysis w/ reflexes rt 11/09 10:22 Order name: Troponin High Sensitivity; Complete Time: 12:43 rt 11/09 11:54 Order name: Manual Differential; Complete Time: 14:04 [facility] 11/09 14:25 Order name: Blood Culture Adult (2) rt 11/09 14:25 Order name: Lactate w/ 2H reflex if indic. rt 11/09 14:25 Order name: Protime (+inr) rt 11/09 14:25 Order name: Ptt, Activated rt 11/09 15:08 Order name: Lactic Dehydrogenase [facility] 11/09 15:08 Order name: Basic Metabolic Panel [facility] 11/09 15:08 Order name: Basic Metabolic Panel [facility] 11/09 15:08 Order name: CBC with Automated Diff [facility] 11/09 15:08 Order name: CBC with Automated Diff [facility] 11/09 15:08 Order name: Comprehensive Metabolic Panel [facility] 11/09 15:08 Order name: Comprehensive Metabolic Panel [facility] 11/09 15:08 Order name: Comprehensive Metabolic Panel [facility] 11/09 15:09 Order name: Calprotectin, Stool [facility] 11/09 15:09 Order name: Fecal Leukocyte Stain [facility] 11/09 15:09 Order name: Ova and Parasites [facility] 11/09 15:09 Order name: Stool Culture [facility] 11/09 15:09 Order name: Procalcitonin [facility] 11/09 10:22 Order name: CT Abd/Pelvis - IV Contrast Only; Complete Time: 14:15 rt 11/09 10:22 Order name: EKG; Complete Time: 10:23 rt 11/09 10:22 Order name: IV Saline Lock; Complete Time: 11:40 rt 11/09 10:22 Order name: Labs collected and sent; Complete Time: 11:40 rt 11/09 10:22 Order name: EKG - Nurse/Tech; Complete Time: 12:47 rt 11/09 14:25 Order name: Accucheck; Complete Time: 15:48 rt 11/09 14:25 Order name: Cardiac monitoring; Complete Time: 15:48 rt 11/09 14:25 Order name: IV Saline Lock - Large Bore; Complete Time: 15:48 rt 11/09 14:25 Order name: O2 Per Protocol; Complete Time: 15:48 rt 11/09 14:25 Order name: O2 Sat Monitoring; Complete Time: 15:48 rt 11/09 14:25 Order name: Vital Signs; Complete Time: 15:48 rt EC:46 Rate is 96 beats/min. Rhythm is regular, Normal Sinus Rhythm with PACs. Left axis rt deviation noted. CA interval is normal. QRS interval is normal. QT interval is normal. No Q waves. Clinical impression: NSR w/ Non-specific ST/T Changes. Administered Medications: 11:45 Drug: Ondansetron IVP 4 mg IVP once; over 2 minutes Route: IVP; Site: left antecubital; hb 11:45 Drug: NS 0.9% IV 1000 ml IV at 1 bolus Per protocol; to be given as a bolus over 60 hb minutes Route: IV; Rate: 1 bolus; Site: left antecubital; 15:59 Drug: Piperacillin-Tazobactam IVPB 3.375 grams IVPB once over 60 mins; (mix in NS 100 hb mL) Route: IVPB; Infused Over: 60 mins; Site: left antecubital; 17:06 Follow up: Response: No adverse reaction; IV Status: Completed infusion; IV Intake: hb 100ml 15:59 Drug: Potassium Chloride IV 40 mEq IV at calculated rate once; administer over 4 hours hb Route: IV; Rate: calculated rate; Site: left antecubital; 16:00 Drug: Potassium Chloride IV 40 mEq IV at calculated rate once; administer over 4 hours hb Route: IV; Rate: calculated rate; Site: left antecubital; 17:05 Drug: Potassium PO Effervescent Tablet 50 mEq PO once; dissolve in 4 ounces of water or hb juice Route: PO; Disposition Summary: 11/09/24 14:46 Hospitalization Ordered Notes: Hospitalization Status: Inpatient Admission rt Provider: Scotty Saleh rt Location[facility] ([facility]) rt Condition: Fair rt Problem: new rt Symptoms: have improved rt Bed/Room Type: Standard rt Room Assignment: 212(11/09/24 15:18) eb Diagnosis - Nausea and vomiting rt - Diarrhea rt - Hypokalemia rt - Leukocytosis rt Forms: - Medication Reconciliation Form rt - SBAR form rt - Leadership Thank You Letter rt Signatures: Dispatcher [employer] EDMS Coretta Simons, RN RN Litzy Simon Lauren, DEBRA RN ld1 Negrito Nassar MD MD rt Corrections: (The following items were deleted from the chart) 14:25 14:25 BLOOD CULTURE*+BA.LAB.BRZ ordered. EDMS EDMS 14:25 14:25 LACTATE+C.LAB.BRZ ordered. EDMS EDMS 14:25 14:25 PROTIME (+INR)+COAG.LAB.BRZ ordered. EDMS EDMS 14:25 14:25 PTT, ACTIVATED+COAG.LAB.BRZ ordered. EDMS EDMS 15:18 14:46 rt eb
--- NOTE | 2024-11-09 15:09 | P.HP ---
Patient History Date of Service: 11/09/24 History of Present Illness: 74-year-old female with a past medical history of hypertension, COPD, neck surgery, CAD, chronic pain presenting with nausea, vomiting and diarrhea for the last 1 week. She states she started feeling very fatigued and weak about 1.5 weeks ago. She denies fevers, hematemesis, or bloody stools. Associated symptoms include chills. Recent sick contacts include her grandchildren including 1 that has strep throat. She smoked for 50 years but quit 2 years ago. She denies any other drug use. She does not work. She is a and lives alone. Allergies meperidine [From Demerol] Allergy (Verified 12/11/20 10:08) AMS oseltamivir [From Tamiflu] Allergy (Verified 12/11/20 10:08) N/V/D dorvon Allergy (Uncoded 12/11/20 10:08) AMS Home Medications: Metoprolol Tartrate 1 tab PO BID 12/09/16 Aspirin Tab [Ayry Aspirin*] 1 tab PO DAILY 10/19/17 Cyclobenzaprine [Flexeril*] 10 mg PO TIDP PRN #20 tab 02/16/19 Gabapentin 1 cap PO BID #180 capsule 02/16/19 Meloxicam [Mobic*] 7.5 mg PO BID #180 tab 02/16/19 Tramadol HCl [Ultram] 1 pill PO BID #180 tablet 02/16/19 dexAMETHasone [Dexamethasone] 1 mg PO BID #15 tablet 02/16/19 - Past Medical/Surgical History Diabetic: No -: Hypertension -: COPD -: Cholesterol -: CAD -: Stent X1 - Family History Father -: Hypertension, Cancer Notes: pancretic Mother -: Hypertension Sister -: Cancer Notes: Cervical - Social History Alcohol use: No CD- Drugs: No Caffeine use: Yes Review of Systems General: Unremarkable Eyes: Unremarkable ENT: Unremarkable Respiratory: Unremarkable Cardiovascular: Unremarkable Gastrointestinal: Nausea, Vomiting, Diarrhea Genitourinary: Unremarkable Musculoskeletal: Unremarkable Integumentary: Unremarkable Neurological: Unremarkable Lymphatics: Unremarkable Physical Examination - Physical Exam General: Alert, In no apparent distress HEENT: Atraumatic, Normocephalic Neck: Supple, 2+ carotid pulse no bruit Respiratory: Clear to auscultation bilaterally, Normal air movement Cardiovascular: No edema, Normal pulses Capillary refill: <2 Seconds Gastrointestinal: Soft and benign, Hyperactive Musculoskeletal: No clubbing Integumentary: No rashes Neurological: Normal strength at 5/5 x4 extr - Studies Laboratory Data (last 24 hrs) 11/09/24 11/09/24 11:38 11:38 WBC 19.10 H Hgb 13.0 Hct 38.3 Plt Count 211 Sodium 135 L Potassium 2.6 L* BUN 11 Creatinine 1.13 H Glucose 114 H Total Bilirubin 1.5 H AST 13 L ALT 20 Alkaline Phosphatase 87 Lipase 22 Assessment and Plan - Plan Gastroenteritis Leukocytosis Hypokalemia Dehydration CAD Hyperlipidemia COPD Hypertension Chronic pain Admit to floor Start IV fluid Start Zosyn Monitor WBC count Stool culture, ova and parasites, fecal leukocytes, LDH pending, calprotectin Imaging reviewed Resume aspirin Resume metoprolol DVT prophylax with SCDs - Advance Directives Does patient have a Living Will: No Does patient have a Durable POA for Healthcare: No
[2024-11-09] MEDS ORDERED: PIPERACIL/TAZO 3.375 GM VIAL IV ONE (15:23)
[2024-11-09] MEDS ORDERED: NA CHLORIDE 0.9% 0 ML ONE (15:23)
[2024-11-09] MEDS ORDERED: POTASSIUM 25 MEQ EFFERV TAB ONE (15:23)
[2024-11-09] MEDS ORDERED: KCL 20 MEQ/100 mL IVPB 100 ML IV ONE ×2 (15:23→15:24)
[2024-11-09 17:31] VITALS: BMI 20.9
[2024-11-09] MEDS: NA CHLORIDE 0.9% 1,000 ML IV SCH (18:38)
[2024-11-09] MEDS: PIPER TAZO 3.375 GM in NA CHLORIDE 0.9% 100 ML IV SCH (18:38)
[2024-11-09] MEDS: METOPROLOL TAR 25 MG TAB PO SCH (21:33)
[2024-11-09] MEDS: TRAMADOL HCL 50 MG TAB PO SCH (21:34)
[2024-11-10 00:27] LABS: AST/SGOT 12 U/L (15-37); Albumin 2.6 g/dL (3.4-5.0); Albumin/Globulin Ratio 0.8 (1.1-1.8); Alkaline Phosphatase 67 U/L (45-117); Anion Gap 7.8 mEq/L (5.0-15.0); BUN Blood Urea Nitrogen 10 mg/dL (7-18); Bicarbonate 29 mEq/L (21-32); Bilirubin Total 1.4 mg/dL (0.2-1.0); Globulin 3.3 g/dL (2.3-3.5); Glomerular Filtration Rate 61 ml/min (=/>90); Glucose Level 81 mg/dL (74-106); Potassium 2.8 mEq/L (3.5-5.1); Protein, Total 5.9 g/dL (6.4-8.2); Sodium Level 136 mEq/L (136-145)
[2024-11-10 00:30] LABS: ALT/SGPT < 14 U/L (13-56)
[2024-11-10 03:03] LABS: Sqamous Epithelial <5 /HPF (None Seen); Urine Bacteria <20 /HPF (<20); Urine Bilirubin NEGATIVE (Negative); Urine Blood 1+ (Negative); Urine Clarity Clear (Clear); Urine Color Yellow (Yellow); Urine Culture Reflex Order REFLEXED; Urine Glucose NEGATIVE (Negative); Urine Ketones 1+ (Negative); Urine Microscopic Reflex YN ORDER UMIC; Urine Nitrite 1+ (Negative); Urine Protein 1+ (Negative); Urine Urobilinogen Normal (Normal); Urine WBC 20-50 /HPF (<5)
[2024-11-10 03:07] LABS: Specific Gravity > 1.030 (1.005-1.030)
[2024-11-10] MEDS: KCL 20 MEQ/100 mL IVPB 20 MEQ/100 ML BAG IV SCH ×2 (03:59→11:15)
[2024-11-10 06:30] LABS: Absolute Basophils 0.1 K/uL (0-0.5); Absolute Lymphocytes (CBC) 1.4 K/uL (0.7-4.9); Absolute Monocytes 1.5 K/uL (0.1-1.3); Basophils % 0.4 % (0-1.3); Eosinophils % 0.1 % (0-4.4); Hematocrit 29.9 % (36.0-45.0); Hemoglobin 10.2 g/dL (12.0-15.0); Lymphocytes % 8.7 % (15.3-44.8); MCH 30.8 pg (27.0-35.0); MCHC 34.2 g/dL (32.0-36.0); MCV 90.1 fL (80-100); MPV 10.4 fL (7.6-11.3); Monocytes % 9.3 % (3.3-12.3); Neutrophils % 81.5 % (41.7-73.7); Nucleated Red Blood Cells % 0.1 % (0-0); Platelets 187 thou/uL (152-406); RBC Red Blood Cell Count 3.32 M/uL (3.86-4.86); Red Cell Distribution Width 14.1 % (12.1-15.2)
[2024-11-10 06:40] LABS: Anion Gap 12.1 mEq/L (5.0-15.0); Potassium 3.1 mEq/L (3.5-5.1)
[2024-11-10 06:44] LABS: Protime INR 1.06
[2024-11-10] MEDS: ASPIRIN 325 MG TAB PO SCH (11:12)
[2024-11-10 13:36] LABS: Albumin 1.8 g/dL (3.4-5.0); Albumin/Globulin Ratio 0.8 (1.1-1.8); Alkaline Phosphatase 46 U/L (45-117); Anion Gap 11.5 mEq/L (5.0-15.0); BUN Blood Urea Nitrogen 10 mg/dL (7-18); Bicarbonate 17 mEq/L (21-32); Bilirubin Total 0.9 mg/dL (0.2-1.0); Globulin 2.3 g/dL (2.3-3.5); Glomerular Filtration Rate 96 ml/min (=/>90); Protein, Total 4.1 g/dL (6.4-8.2); Sodium Level 144 mEq/L (136-145)
[2024-11-10 13:37] LABS: ALT/SGPT < 14 U/L (13-56); AST/SGOT < 10 U/L (15-37)
[2024-11-10 13:41] LABS: Glucose Level 55 mg/dL (74-106)
[2024-11-10 13:45] LABS: Potassium 2.5 mEq/L (3.5-5.1)
[2024-11-10] MEDS: Magnesium Sulfate 2gm IVPB 2 G/50 ML BAG IV ONE (15:43)
[2024-11-10] MEDS: CALCIUM GLUCONATE 1 GM IVPB 1 GM/50 ML BAG IV ONE (15:43)
--- NOTE | 2024-11-10 16:58 | P.PN ---
Date of Service: 11/10/24 Subjective Awake and reporting she does not feel well today. Reports vomiting diarrhea for 1 week prior to arrival ROS 10 point ROS as noted above, otherwise negative Physical Exam General: AAO x 3, NAD HEENT: Atraumatic, Normocephalic Neck: Supple, 2+ carotid pulse no bruit Respiratory: Clear BBS, Normal air movement, on room air Cardiovascular: No edema, Normal pulses Capillary refill: <2 Seconds Gastrointestinal: Soft and benign on palpation, nontender Musculoskeletal: No clubbing Integumentary: No rashes Neurological: Normal strength at 5/5 x4 extr Vitals Reviewed Problem list Gastroenteritis with diarrhea Leukocytosis Hypokalemia Dehydration UTI CAD Hyperlipidemia COPD Hypertension Chronic pain Assessment and Plan Gastroenteritis with diarrhea Hypokalemia Hypocalcemia Dehydration Continue IV fluid Continue Zosyn Stool culture, ova and parasites, fecal leukocytes, LDH pending, calprotectin Potassium 2.1/2.5 Calcium 8.2/5.6 UTI Leukocytosis Urine culture pending History of ESBL urine (2019) WBC improved, continue to monitor CAD Hyperlipidemia COPD Hypertension Chronic pain Resumed aspirin Resumed metoprolol Continue home medication DVT prophylax with SCDs Full code LOS 2-3 days <Lucy Velásquez - Last Filed: 11/10/24 16:49> I have personally reviewed and discussed the patient's history, physical exam findings, assessment, and plan as documented by Lucy Velásquez NP. I confirmed the accuracy of the information and agree with the management of the plan as outlined <Scotty Saleh - Last Filed: 11/10/24 17:45>
[2024-11-11 01:16] LABS: Magnesium 2.2 mg/dL (1.6-2.4); Potassium 3.3 mEq/L (3.5-5.1)
[2024-11-11] MEDS: POTASSIUM 25 MEQ EFFERV TAB PO ONE ×2 (03:05→09:11)
--- NOTE | 2024-11-11 08:01 | P.DS ---
Admission Date: 11/09/24 Discharge Date: 11/14/24 Disposition: ROUTINE DISCHARGE Discharge Condition: GOOD Brief History of Present Illness: 74-year-old female with a past medical history of hypertension, COPD, neck surgery, CAD, chronic pain presenting with nausea, vomiting and diarrhea for the last 1 week. She states she started feeling very fatigued and weak about 1.5 weeks ago. She denies fevers, hematemesis, or bloody stools. Associated symptoms include chills. Recent sick contacts include her grandchildren including 1 that has strep throat. She smoked for 50 years but quit 2 years ago. She denies any other drug use. She does not work. She is a and lives alone. - Physical Exam General: Alert, In no apparent distress HEENT: Atraumatic, Normocephalic Neck: Supple, 2+ carotid pulse no bruit Respiratory: Clear to auscultation bilaterally, Normal air movement Cardiovascular: No edema, Normal pulses Capillary refill: <2 Seconds Gastrointestinal: Soft and benign, Hyperactive Musculoskeletal: No clubbing Integumentary: No rashes Neurological: Normal strength at 5/5 x4 extr Hospital Course: 74-year-old female with a past medical history of hypertension, COPD, neck surgery, CAD, chronic pain presenting with nausea, vomiting and diarrhea for the last 1 week. She states she started feeling very fatigued and weak about 1.5 weeks ago. She denies fevers, hematemesis, or bloody stools. Associated symptoms include chills. Recent sick contacts include her grandchildren including 1 that has strep throat. She smoked for 50 years but quit 2 years ago. She denies any other drug use. She does not work. She is a and lives alone. She was noted to have gastroenteritis, leukocytosis, dehydration, treated with IV fluids, IV antibiotics, as needed antiemetics. Symptoms have improved, tolerated diet, follow-up with PCP after discharge follow-up with GI Dr. Juárez after discharge Discharge home with Creon 1 p.o. twice daily Zofran, as needed for nausea vomiting Diarrhea Cipro Flagyl for gastroenteritis Hypertension, 100 mg 1 p.o. twice daily Assessment Gastroenteritis, treated with IV fluids, antiemetics, Leukocytosis treated with IV antibiotics Dehydration, treated with IV fluids, resolved CAD, hypertension, hyperlipidemia, resume home meds after discharge COPD resume home meds after discharge, Symbicort added follow-up with pulmonary after this Chronic pain resume home meds after discharge Hypokalemia, replaced X 2 blood culture no growth UA, culture no growth Stool culture preduced fecal mary, no Salmonella or Shingele No fecal WBCs seen INSTRUCTIONS: Physician Discharge Instructions: Follow-up with GI after discharge call office for appointment -Follow-up with PCP in 1 to 2 weeks -Please call if any questions regarding hospital stay -Please call nursing station at [phone] if any nursing or medication questions -Return to the emergency room if symptoms worsen Diet: ADA, low sodium Activity: Fall precautions Vital Signs/Physical Exam: Temp Pulse Resp BP Pulse Ox 97.6 F 64 18 173/71 H 96 11/11/24 04:00 11/11/24 04:00 11/11/24 04:00 11/11/24 04:00 11/11/24 04:00 Laboratory Data at Discharge: WBC 15.90 thou/uL (4.3-10.9) H 11/10/24 05:35 Hgb 10.2 g/dL (12.0-15.0) L D 11/10/24 05:35 Hct 29.9 % (36.0-45.0) L 11/10/24 05:35 Plt Count 187 thou/uL (152-406) 11/10/24 05:35 PT 12.0 SECONDS (10-13.0) 11/10/24 05:35 INR 1.06 11/10/24 05:35 APTT 26.0 SECONDS (27.2-37.4) L 11/10/24 05:35 Sodium 144 mEq/L (136-145) D 11/10/24 09:52 Potassium 3.3 mEq/L (3.5-5.1) L D 11/11/24 00:48 BUN 10 mg/dL (7-18) 11/10/24 09:52 Creatinine 0.55 mg/dL (0.55-1.02) 11/10/24 09:52 Glucose 55 mg/dL (74-106) L 11/10/24 09:52 Magnesium 2.2 mg/dL (1.6-2.4) 11/11/24 00:48 Total Bilirubin 0.9 mg/dL (0.2-1.0) 11/10/24 09:52 AST < 10 U/L (15-37) L 11/10/24 09:52 ALT < 14 U/L (13-56) 11/10/24 09:52 Alkaline Phosphatase 46 U/L (45-117) D 11/10/24 09:52 Lipase 22 U/L (13-75) 11/09/24 11:38 Home Medications: Aspirin Tab [Yary Aspirin*] 1 tab PO DAILY 10/19/17 Gabapentin 1 cap PO BID #180 capsule 02/16/19 Meloxicam [Mobic*] 7.5 mg PO BID #180 tab 02/16/19 Alendronate [Fosamax*] 10 mg PO DAILY 11/09/24 Ezetimibe/Rosuvastatin Calcium [Rosuvastatin-Ezetimibe 40-10Mg] 40 mg PO 11/09/24 Ciprofloxacin HCl [Cipro 250 MG Tablet*] 250 mg PO BID 10 Days #5 tab 11/11/24 Mometasone/Formoterol [Dulera 100 Mcg/5 Mcg Inhaler] 2 puff IH BID inhaler 11/11/24 Ondansetron [Zofran] 4 mg PO Q6H PRN 5 Days #15 tab 11/11/24 metroNIDAZOLE [Flagyl] 500 mg PO Q6H 5 Days #10 tab 11/11/24 traMADol HCL [Ultram*] 50 mg PO Q6H PRN 5 Days #15 tab 11/11/24 Lipase/Protease/Amylase [Creon Dr 12,000 Units Capsule] 1 cap PO BID 30 Days #60 cap 11/14/24 Metoprolol Tartrate 100 mg PO 6XD 30 Days #60 tab 11/14/24 New Medications: Ciprofloxacin HCl [Cipro 250 MG Tablet*] 250 mg PO BID 10 Days #5 tab Lipase/Protease/Amylase [Creon Dr 12,000 Units Capsule] 1 cap PO BID 30 Days #60 cap metroNIDAZOLE [Flagyl] 500 mg PO Q6H 5 Days #10 tab Metoprolol Tartrate 100 mg PO 6XD 30 Days #60 tab traMADol HCL [Ultram*] 50 mg PO Q6H PRN 5 Days #15 tab PRN Reason: Pain Ondansetron [Zofran] 4 mg PO Q6H PRN 5 Days #15 tab PRN Reason: Nausea / Vomiting Physician Discharge Instructions: 74-year-old female with a past medical history of hypertension, COPD, neck surgery, CAD, chronic pain presenting with nausea, vomiting and diarrhea for the last 1 week. She states she started feeling very fatigued and weak about 1.5 weeks ago. She denies fevers, hematemesis, or bloody stools. Associated symptoms include chills. Recent sick contacts include her grandchildren including 1 that has strep throat. She smoked for 50 years but quit 2 years ago. She denies any other drug use. She does not work. She is a and lives alone. She was noted to have gastroenteritis, leukocytosis, dehydration, treated with IV fluids, IV antibiotics, as needed antiemetics. Symptoms have improved, tolerated diet, follow-up with PCP after discharge follow-up with GI Dr. Juárez after discharge Discharge home with Creon 1 p.o. twice daily Zofran, as needed for nausea vomiting Diarrhea Cipro Flagyl for gastroenteritis Hypertension, 100 mg 1 p.o. twice daily She needs to check her blood pressure daily, keep blood pressure log to take to PCP, cardiology Assessment Gastroenteritis, treated with IV fluids, antiemetics, improved Leukocytosis treated with IV antibiotics, resolved Dehydration, treated with IV fluids, resolved hypertension, uncontrolled, metoprolol increased to 100 mg 1 p.o. twice daily needs to follow-up with PCP, cardiology after discharge call office for appoint hyperlipidemia, resume home meds after discharge COPD resume home meds after discharge, Symbicort added follow-up with pulmonary after this Chronic pain resume home meds after discharge Hypokalemia, replaced X 2 blood culture no growth UA, culture no growth Stool culture preduced fecal mary, no Salmonella or Shingele No fecal WBCs seen INSTRUCTIONS: Physician Discharge Instructions: Follow-up with GI after discharge call office for appointment -Follow-up with PCP in 1 to 2 weeks -Please call if any questions regarding hospital stay -Please call nursing station at [phone] if any nursing or medication questions -Return to the emergency room if symptoms worsen Diet: ADA, low sodium Activity: Fall precautions Followup: Sandro Cole MD [ACTIVE - CAN ADMIT] - Denny Abdalla DO [Primary Care Provider] - Cecilio Jimenez MD [OUTSIDE PHYSICIAN] - Time spent managing pt's care (in minutes): 45
[2024-11-11] MEDS: DULERA 100/5 (MOMETASONE/FORMOTEROL) INHALER IH SCH (10:30)
[2024-11-11] MEDS: LIPASE/PROTEASE/AMYLASE CAP PO SCH (12:57)
[2024-11-11] MEDS: CHOLESTYRAMINE/ASP 4 GM/PKT PO SCH (12:57)
--- NOTE | 2024-11-11 14:18 | RAD REPORT ---
EXAMINATION: ONE VIEW CHEST XR CLINICAL INDICATION: cough TECHNIQUE: Frontal chest projection is submitted. Examination is limited by patient positioning and t echnique. COMPARISON: 07/12/2022 FINDINGS: The lungs are diffusely emphysematous but grossly clear. The heart is upper limit of normal in size. Advanced thoracolumbar levoscoliosis. IMPRESSION: COPD without an acute process suspected.
--- NOTE | 2024-11-11 17:23 | P.PN ---
Subjective Date of Service: 11/11/24 Reports loose stools, cough, Symbicort added, <Senia Mosqueda - Last Filed: 11/11/24 17:23> Date of Service: 11/11/24 <DelfinoScotty - Last Filed: 11/11/24 17:51> Review of Systems 10-point ROS is otherwise unremarkable <Senia Mosqueda - Last Filed: 11/11/24 17:23> Physical Examination - Vital Signs Temperature: 97.7 F Blood Pressure: 196/81 Pulse: 70 Respirations: 16 Pulse Ox (%): 96 - Physical Exam General: Alert, In no apparent distress, Oriented x3 HEENT: Atraumatic, Normocephalic Neck: Supple, JVD not distended Respiratory: Normal air movement, Rhonchi/gurgles Cardiovascular: Normal pulses, Regular rate/rhythm, Normal S1 S2 Capillary refill: <2 Seconds Gastrointestinal: Normal bowel sounds, Soft and benign, Other (Loose stools) Musculoskeletal: No clubbing, No swelling Integumentary: No breakdown, No significant lesion Neurological: Normal gait, Normal speech, Normal strength at 5/5 x4 extr <Senia Mosqueda - Last Filed: 11/11/24 17:23> Assessment And Plan - Plan Assessment and Plan Gastroenteritis with diarrhea Hypokalemia Hypocalcemia Dehydration Continue IV fluid, Zosyn Started on Questran, Creon for loose stools Stool culture, ova and parasites, fecal leukocytes, LDH pending, calprotectin Potassium 2.1/2.5 Calcium 8.2/5.6 UTI Leukocytosis Urine culture pending History of ESBL urine (2019) WBC improved, continue to monitor Hypokalemia Hypomagnesia Hypocalcemia Electrolytes replace CAD Hyperlipidemia COPD Hypertension Chronic pain Resumed aspirin Resumed metoprolol Continue home medication Started home Symbicort/Advair Chest x-ray shows COPD not in acute exacerbation DVT prophylax with SCDs Full code LOS 2-3 days Discharge Plan: Home - Code Status/Comfort Care Code Status: Full Code Critical Care: No Time Spent Managing PTS Care (In Minutes): 35 <Senia Mosqueda - Last Filed: 11/11/24 17:23> Physician Review: Patient Assessed, Agree with Above Assessment and Plan <Scotty Saleh - Last Filed: 11/11/24 17:51>
[2024-11-12 08:52] LABS: Absolute Basophils 0.1 K/uL (0-0.5); Absolute Eosinophils 0.8 K/uL (0-0.5); Absolute Lymphocytes (CBC) 1.5 K/uL (0.7-4.9); Absolute Neutrophil 7.1 K/uL (1.8-8.0); Basophils % 0.5 % (0-1.3); Eosinophils % 7.3 % (0-4.4); Hemoglobin 11.7 g/dL (12.0-15.0); Lymphocytes % 13.9 % (15.3-44.8); MCH 30.5 pg (27.0-35.0); MCHC 33.5 g/dL (32.0-36.0); MPV 10.6 fL (7.6-11.3); Monocytes % 9.9 % (3.3-12.3); Neutrophils % 68.4 % (41.7-73.7); Nucleated Red Blood Cells % 0.1 % (0-0); Platelets 188 thou/uL (152-406); RBC Red Blood Cell Count 3.84 M/uL (3.86-4.86); Red Cell Distribution Width 14.3 % (12.1-15.2)
[2024-11-12] MEDS: METOPROLOL TAR 50 MG TAB PO SCH (09:02)
[2024-11-12 09:10] LABS: Albumin 2.5 g/dL (3.4-5.0); Anion Gap 9.2 mEq/L (5.0-15.0); Magnesium 1.8 mg/dL (1.6-2.4); Phosphorus 2.1 mg/dL (2.5-4.9); Potassium 4.2 mEq/L (3.5-5.1)
[2024-11-12] MEDS ORDERED: CHOLESTYRAMINE/ASP 4 GM/PKT PO SCH (10:29)
[2024-11-12] MEDS: HYDRALAZINE HCL 20 MG/ML VIAL IV PRN (11:49)
--- NOTE | 2024-11-12 12:17 | EKG ---
Test Date: 2024-11-09 Test Time: 12:31:59 Basin Cleaner: THOR MEASUREMENT RESULTS: Intervals: Rate: 96 OR: 168 QRSD: 98 QT: 376 QTc: 475 [place]: P: 73 OR: 168 QRS: -85 T: 38 INTERPRETIVE STATEMENTS: Sinus rhythm with premature atrial complexes Possible Left atrial enlargement Incomplete right bundle branch block Left anterior fascicular block Nonspecific ST and T wave abnormality Abnormal ECG Compared to ECG 07/12/2022 14:54:57 Atrial premature complex(es) now present ST (T wave) deviation now present Electronically Signed On 11-12-24 12:10:03 CDT by Jason Simon
--- NOTE | 2024-11-12 14:06 | P.PN ---
This is an attestation to FINANCE MANAGER note. Subjective: No chest pain or shortness of breath. No nausea or vomiting. No abdominal pain. No obvious bleeding. Looks comfortable in the bed. C omplaining of ongoing diarrhea but getting better compared with admission. Objective: General appearance: Alert and comfortable CVS: Normal S1 and S2 Lungs: Clear to auscultation bilaterally Abdomen: Soft, bowel sounds present, no tenderness Extremities: No lower extremity edema 74-year-old patient with gastroenteritis, continue antibiotics, cultures negative so far. CT abdomen negative except air in the bladder. Urine culture negative, need to follow-up with PCP/urology with repeat urinalysis. Chest x- ray showed COPD. Leukocytosis improving. Acute anemia, secondary to acute illness and hemodilution, monitor closely. Hypertension, poorly controlled, stop IV fluids, resume blood pressure medications, monitor closely. Plan discussed with the patient and family at bedside.
--- NOTE | 2024-11-12 16:37 | P.PN ---
Date of Service: 11/12/24 Subjective Reports loose stools, cough, History of COPD, Symbicort added, chest x-ray COPD not in exacerbation Review of Systems 10-point ROS is otherwise unremarkable Physical Examination - Vital Signs Reviewed - Physical Exam General: Alert, In no apparent distress, Oriented x3 afebrile HEENT: Atraumatic, Normocephalic Neck: Supple, JVD not distended Respiratory: Normal air movement, Rhonchi/nonproductive cough Cardiovascular: Normal pulses, Regular rate/rhythm, Normal S1 S2 Capillary refill: <2 Seconds Gastrointestinal: Normal bowel sounds, Soft and benign, Other (Loose stools) Musculoskeletal: No clubbing, No swelling Integumentary: No breakdown, No significant lesion Neurological: Normal gait, Normal speech, Normal strength at 5/5 x4 extr Assessment And Plan - Plan Gastroenteritis with diarrhea Hypokalemia Hypocalcemia Dehydration Continue IV fluid, Zosyn Started on Questran, Creon for loose stools Stool culture, 1+ yeast, reduce fecal mary grown, Fecal stain no WBCs seen Culture ova and parasites, fecal leukocytes, LDH pending, calprotectin Potassium 2.1/2.5 replaced 4.2 Calcium 8.2/5.6 repeat 8.7 Magnesium 1.3, repeat 2.2 Phosphorus 2.1, replaced X 2 blood cultures no growth UTI Leukocytosis Urine culture no growth History of ESBL urine (2019) WBC improved, continue to monitor Hypokalemia Hypomagnesia Hypocalcemia Electrolytes replace CAD Hyperlipidemia COPD not in exacerbation Hypertension Chronic pain Resumed aspirin Resumed metoprolol Continue home medication Started home Symbicort/Advair Chest x-ray shows COPD not in acute exacerbation DVT prophylax with SCDs Full code LOS 2-3 days Discharge Plan: Home - Code Status/Comfort Care Code Status: Full Code Critical Care: No Time Spent Managing PTS Care (In Minutes): 35
[2024-11-12] MEDS: NA CHLORIDE 0.9% 1,000 ML ONE (21:23)
[2024-11-13 09:01] LABS: Absolute Basophils 0.1 K/uL (0-0.5); Absolute Eosinophils 0.8 K/uL (0-0.5); Absolute Monocytes 0.9 K/uL (0.1-1.3); Absolute Neutrophil 6.9 K/uL (1.8-8.0); Basophils % 0.7 % (0-1.3); Eosinophils % 7.3 % (0-4.4); Hematocrit 36.3 % (36.0-45.0); Hemoglobin 12.4 g/dL (12.0-15.0); Lymphocytes % 19.2 % (15.3-44.8); MCH 30.8 pg (27.0-35.0); MCHC 34.1 g/dL (32.0-36.0); MCV 90.4 fL (80-100); MPV 10.5 fL (7.6-11.3); Monocytes % 8.1 % (3.3-12.3); Neutrophils % 64.7 % (41.7-73.7); Platelets 235 thou/uL (152-406); RBC Red Blood Cell Count 4.02 M/uL (3.86-4.86); Red Cell Distribution Width 14.5 % (12.1-15.2)
[2024-11-13 09:14] LABS: Albumin 2.5 g/dL (3.4-5.0); Anion Gap 9.7 mEq/L (5.0-15.0); Magnesium 1.7 mg/dL (1.6-2.4); Phosphorus 2.4 mg/dL (2.5-4.9); Potassium 3.7 mEq/L (3.5-5.1)
[2024-11-13] MEDS ORDERED: cloNIDine HCL 0.1 MG TAB PO PRN (10:18)
[2024-11-13] MEDS: METOPROLOL TAR 50 MG TAB PO ONE (12:31)
--- NOTE | 2024-11-13 12:37 | P.PN ---
This is an attestation to TOLL PATROLMAN note. Subjective: No chest pain or shortness of breath. No nausea or vomiting. No abdominal pain. No obvious bleeding. Looks comfortable in the bed. C omplaining of ongoing diarrhea but getting slowly better, had 1 loose stool today. Objective: General appearance: Alert and comfortable CVS: Normal S1 and S2 Lungs: Clear to auscultation bilaterally Abdomen: Soft, bowel sounds present, no tenderness Extremities: No lower extremity edema 74-year-old patient with gastroenteritis, continue antibiotics, cultures negative so far. CT abdomen negative except air in the bladder. Urine culture negative, need to follow-up with PCP/urology with repeat urinalysis. Chest x- ray showed COPD. Leukocytosis improving. Acute anemia, secondary to acute ill ness and hemodilution, monitor closely. Hypertension, poorly controlled, stopped IV fluids, increased lopressor, monitor closely. Plan discussed with the patient and family at bedside. DC home later today if continues to improve.
[2024-11-13] MEDS: METOPROLOL TAR 25 MG TAB PO ONE (13:46)
[2024-11-13 14:09] LABS: CDIFF INTERNAL NEG CONTROL White Background (WHITE BKGD); STOOL CONSISTENCY Liquid/Semi-Solid
[2024-11-13 14:10] LABS: C.diff Antigen/Toxin Ag neg : Tox neg (NEG : NEG)
[2024-11-13] MEDS: POTASS/SODIUM PHOSPHATE 1 PKT POWD.PACK PO ONE (14:43)
[2024-11-13] MEDS: METOPROLOL TAR 50 MG TAB PO SCH (21:09)
[2024-11-14 07:50] LABS: Absolute Basophils 0.1 K/uL (0-0.5); Absolute Eosinophils 0.6 K/uL (0-0.5); Absolute Lymphocytes (CBC) 2.2 K/uL (0.7-4.9); Absolute Monocytes 1.1 K/uL (0.1-1.3); Absolute Neutrophil 6.6 K/uL (1.8-8.0); Basophils % 0.8 % (0-1.3); Eosinophils % 5.8 % (0-4.4); Hematocrit 33.9 % (36.0-45.0); Hemoglobin 11.6 g/dL (12.0-15.0); Lymphocytes % 21.2 % (15.3-44.8); MCH 31.1 pg (27.0-35.0); MCHC 34.2 g/dL (32.0-36.0); MPV 10.1 fL (7.6-11.3); Monocytes % 10.1 % (3.3-12.3); Neutrophils % 62.1 % (41.7-73.7); Platelets 213 thou/uL (152-406); RBC Red Blood Cell Count 3.72 M/uL (3.86-4.86); Red Cell Distribution Width 14.5 % (12.1-15.2)
[2024-11-14 08:06] LABS: Albumin 2.5 g/dL (3.4-5.0); Anion Gap 9.6 mEq/L (5.0-15.0); Magnesium 1.7 mg/dL (1.6-2.4); Phosphorus 2.9 mg/dL (2.5-4.9); Potassium 3.6 mEq/L (3.5-5.1)
--- NOTE | 2024-11-14 10:58 | P.PN ---
Date of Service: 11/14/24 Subjective Reports stools mildly improving, spoke with GI to follow-up outpatient for colonoscopy Review of Systems 10-point ROS is otherwise unremarkable Physical Examination - Vital Signs Reviewed - Physical Exam General: Alert, oriented x 3, afebrile HEENT: PERRLA Neck: Supple, J Respiratory: Normal air movement, Rhonchi/nonproductive cough Cardiovascular: Normal pulses, RRR Capillary refill: <2 Seconds Gastrointestinal: Normal bowel sounds,, nontender, Other (Loose stools) Musculoskeletal: No clubbing, No swelling Integumentary: No breakdown, No significant lesion Neurological: Normal gait, Normal speech, Normal strength at 5/5 x4 extr Assessment And Plan - Plan Gastroenteritis with diarrhea Hypokalemia Hypocalcemia Dehydration Continue IV fluid, Zosyn Started on Questran, Creon for loose stools Stool culture, 1+ yeast, reduce fecal mary grown, Fecal stain no WBCs seen Culture ova and parasites, fecal leukocytes, LDH pending, calprotectin Potassium 2.1/2.5 replaced 4.2 Calcium 8.2/5.6 repeat 8.7 Magnesium 1.3, repeat 2.2 Phosphorus 2.1, replaced X 2 blood cultures no growth UTI Leukocytosis Urine culture no growth History of ESBL urine (2019) WBC improved, continue to monitor Hypokalemia Hypomagnesia Hypocalcemia Electrolytes replace CAD Hyperlipidemia COPD not in exacerbation Hypertension Chronic pain Resumed aspirin Resumed metoprolol Continue home medication Started home Symbicort/Advair Chest x-ray shows COPD not in acute exacerbation Metoprolol increased to 100 twice daily DVT prophylax with SCDs Full code LOS 2-3 days Discharge Plan: Home - Code Status/Comfort Care Code Status: Full Code Critical Care: No Time Spent Managing PTS Care (In Minutes): 35
[2024-11-14] MEDS: AMLODIPINE 5 MG TAB PO SCH (13:19)
--- NOTE | 2024-11-14 13:23 | P.PN ---
This is an attestation to FOOT PIECE ASSEMBLER note. Subjective: No chest pain or shortness of breath. No nausea or vomiting. No abdominal pain. No obvious bleeding. Looks comfortable in the bed. C omplaining of ongoing diarrhea Objective: General appearance: Alert and comfortable CVS: Normal S1 and S2 Lungs: Clear to auscultation bilaterally Abdomen: Soft, bowel sounds present, no tenderness Extremities: No lower extremity edema 74-year-old patient with gastroenteritis, continue antibiotics, cultures negative so far. CT abdomen negative except air in the bladder. Urine culture negative, need to follow-up with PCP/urology with repeat urinalysis. Chest x- ray showed COPD. Leukocytosis improving. Acute anemia, secondary to acute illness and hemodilution, monitor closely. Hypertension, poorly controlled, stopped IV fluids, increased lopressor, addded norvasc today, monitor closely. Plan discussed with the patient and family at bedside. DC home tomorrow if continues to improve. GI consult requested, as per patient /family GI doc told them o/p c-scope, consult note pending
[2024-11-15 07:00] LABS: Absolute Basophils 0.1 K/uL (0-0.5); Absolute Eosinophils 0.7 K/uL (0-0.5); Absolute Lymphocytes (CBC) 2.8 K/uL (0.7-4.9); Absolute Monocytes 1.4 K/uL (0.1-1.3); Absolute Neutrophil 8.5 K/uL (1.8-8.0); Basophils % 0.7 % (0-1.3); Eosinophils % 5.4 % (0-4.4); Hematocrit 33.9 % (36.0-45.0); Hemoglobin 11.2 g/dL (12.0-15.0); Lymphocytes % 20.9 % (15.3-44.8); MCH 30.1 pg (27.0-35.0); MCV 91.2 fL (80-100); MPV 10.7 fL (7.6-11.3); Monocytes % 10.4 % (3.3-12.3); Neutrophils % 62.6 % (41.7-73.7); Platelets 230 thou/uL (152-406); RBC Red Blood Cell Count 3.72 M/uL (3.86-4.86); Red Cell Distribution Width 14.7 % (12.1-15.2)
[2024-11-15 07:20] LABS: Anion Gap 8.5 mEq/L (5.0-15.0); Potassium 3.5 mEq/L (3.5-5.1)
[2024-11-15] MEDS: ACETAMINOPHEN 325 MG TABLET PO PRN (12:15)
[2024-11-15] MEDS ORDERED: LOPERAMIDE HCL 2 MG CAPSULE PO PRN (14:53)
--- NOTE | 2024-11-15 14:57 | P.PN ---
Subjective Date of Service: 11/15/24 Subjective: No chest pain or shortness of breath. No nausea or vomiting. No abdominal pain. No obvious bleeding. Looks comfortable in the bed. Complaining of ongoing diarrhea, 6 times this morning, feels not ready to go home. Objective: General appearance: Alert and comfortable CVS: Normal S1 and S2 Lungs: Clear to auscultation bilaterally Abdomen: Soft, bowel sounds present, no tenderness Extremities: No lower extremity edema Physical Examination - Vital Signs Temperature: 97.6 F Blood Pressure: 163/72 Pulse: 66 Respirations: 16 Pulse Ox (%): 95 - Studies Microbiology Data (last 24 hrs): 11/09/24 14:09 Blood - Blood Aerobic Blood Culture - Final No growth in 5 days. 11/09/24 14:09 Blood - Blood Anaerobic Blood Culture - Final No growth in 5 days. 11/09/24 14:52 Blood - Blood Aerobic Blood Culture - Final No growth in 5 days. 11/09/24 14:52 Blood - Blood Anaerobic Blood Culture - Final No growth in 5 days. Assessment And Plan - Plan Assessment And Plan Gastroenteritis with diarrhea Hypokalemia Hypocalcemia Dehydration Continue IV fluid, Zosyn Started on Creon for loose stools Stool culture, 1+ yeast, reduce fecal mary grown, c diff neg still diarreha, start lactobacillus and imodium - GI consulted, plan for outpatient colonoscopy. Leukocytosis Urine culture no growth History of ESBL urine (2019) WBC improved, continue to monitor Hypokalemia Hypomagnesia Hypocalcemia Electrolytes replace CAD Hyperlipidemia COPD not in exacerbation Hypertension Chronic pain Metoprolol increased to 100 twice daily added norvasc # Air in the urinary bladder on CT scan: Urine culture negative, need to follow- up with PCP and urology. # Acute anemia: Monitor closely. 74-year-old patient with gastroenteritis, continue antibiotics, cultures negative so far. CT abdomen negative except air in the bladder. Urine culture negative, need to follow-up with PCP/urology with repeat urinalysis. Chest x- ray showed COPD. Leukocytosis improving. Acute anemia, secondary to acute illness and hemodilution, monitor closely. Hypertension, poorly controlled, stopped IV fluids, increased lopressor, addded norvasc today, monitor closely. Plan discussed with the patient and family at bedside. DC home tomorrow if continues to improve. Physician Review: Patient Assessed, Agree with Above Assessment and Plan
[2024-11-15] MEDS: LOPERAMIDE HCL 2 MG CAPSULE PO ONE (16:34)
[2024-11-15] MEDS: LACTOBACILLUS/ACIDOPHILUS TAB PO SCH (16:34)
[2024-11-15] MEDS: AMLODIPINE 5 MG TAB PO SCH (20:23)
[2024-11-16 06:16] LABS: Absolute Basophils 0.1 K/uL (0-0.5); Absolute Eosinophils 0.9 K/uL (0-0.5); Absolute Monocytes 1.2 K/uL (0.1-1.3); Absolute Neutrophil 8.9 K/uL (1.8-8.0); Basophils % 0.7 % (0-1.3); Eosinophils % 6.6 % (0-4.4); Hematocrit 32.2 % (36.0-45.0); Hemoglobin 10.8 g/dL (12.0-15.0); Lymphocytes % 21.1 % (15.3-44.8); MCH 30.7 pg (27.0-35.0); MCHC 33.5 g/dL (32.0-36.0); MCV 91.8 fL (80-100); MPV 10.6 fL (7.6-11.3); Monocytes % 8.3 % (3.3-12.3); Neutrophils % 63.3 % (41.7-73.7); Platelets 240 thou/uL (152-406); RBC Red Blood Cell Count 3.51 M/uL (3.86-4.86); Red Cell Distribution Width 14.8 % (12.1-15.2)
[2024-11-16 06:33] LABS: Anion Gap 9.8 mEq/L (5.0-15.0); Potassium 3.8 mEq/L (3.5-5.1)
--- NOTE | 2024-11-16 14:59 | P.PN ---
Subjective Date of Service: 11/16/24 Chief Complaint: loose stools loose stools, watery denies pain or fevers requested pepto Review of Systems 10-point ROS is otherwise unremarkable Physical Examination - Vital Signs Temperature: 98.4 F Blood Pressure: 165/72 Pulse: 65 Respirations: 20 Pulse Ox (%): 96 - Physical Exam General: Alert, In no apparent distress, Oriented x3 HEENT: Atraumatic, Normocephalic Respiratory: Normal air movement Cardiovascular: Regular rate/rhythm Gastrointestinal: Soft and benign, Non-distended Musculoskeletal: No swelling Integumentary: No rashes Assessment And Plan - Current Problems (Diagnosis) (1) Diarrhea Current Visit: Yes Status: Acute - Plan Gastroenteritis with diarrhea Hypokalemia Hypocalcemia Dehydration Continue IV fluid, Zosyn Started on Creon for loose stools Stool culture, 1+ yeast, reduce fecal mary grown, c diff neg still diarrhea, lactobacillus and imodium add Pepto - GI consulted, plan for outpatient colonoscopy. Leukocytosis Urine culture no growth History of ESBL urine (2019) WBC improved, continue to monitor Hypokalemia Hypomagnesia Hypocalcemia Electrolytes replace CAD Hyperlipidemia COPD not in exacerbation Hypertension Chronic pain Metoprolol increased to 100 twice daily added norvasc # Air in the urinary bladder on CT scan: Urine culture negative, need to follow- up with PCP and urology. # Acute anemia: Monitor closely. 74-year-old patient with gastroenteritis, continue antibiotics, cultures negative so far. CT abdomen negative except air in the bladder. Urine culture negative, need to follow-up with PCP/urology with repeat urinalysis. Chest x- ray showed COPD. Leukocytosis improving. Acute anemia, secondary to acute illness and hemodilution, monitor closely. Hypertension, poorly controlled, stopped IV fluids, increased lopressor, addded norvasc possible dc in AM Physician Review: Patient Assessed, Agree with Above Assessment and Plan
[2024-11-16] MEDS: BISMUTH SUBSALICYL 262MG/15ML-240 ML BTL PO PRN (18:39)
[2024-11-16] MEDS: ENSURE ENLIVE 237 ML CAN PO SCH (20:59)
[2024-11-17 07:31] LABS: Anion Gap 10.7 mEq/L (5.0-15.0); Magnesium 1.8 mg/dL (1.6-2.4); Potassium 3.7 mEq/L (3.5-5.1)
[2024-11-17] MEDS: TRAMADOL HCL 50 MG TAB PO PRN (10:25)
--- NOTE | 2024-11-17 10:43 | P.PN ---
Subjective Date of Service: 11/17/24 Chief Complaint: loose stools still having loose stools Review of Systems 10-point ROS is otherwise unremarkable Physical Examination - Vital Signs Temperature: 97.6 F Blood Pressure: 150/65 Pulse: 66 Respirations: 16 Pulse Ox (%): 97 - Physical Exam General: Alert, Oriented x3 HEENT: Atraumatic, Normocephalic Respiratory: Clear to auscultation bilaterally, Normal air movement Cardiovascular: No edema Gastrointestinal: Soft and benign, Non-distended Musculoskeletal: No swelling Integumentary: No rashes Neurological: Normal speech Assessment And Plan - Current Problems (Diagnosis) (1) Diarrhea Current Visit: Yes Status: Acute - Plan Gastroenteritis with diarrhea Hypokalemia Hypocalcemia Dehydration Continue IV fluid, Zosyn Started on Creon for loose stools Stool culture, 1+ yeast, reduce fecal mayr grown, c diff neg--> repeat ordered still diarrhea, lactobacillus and imodium--> add lomitil, discussed reducing dairy intake Pepto - GI consulted, plan for outpatient colonoscopy. -consider calling GI on Tuesday for recs Leukocytosis Urine culture no growth History of ESBL urine (2019) WBC improved, continue to monitor Hypokalemia Hypomagnesia Hypocalcemia Electrolytes replace CAD Hyperlipidemia COPD not in exacerbation Hypertension Chronic pain Metoprolol increased to 100 twice daily added norvasc # Air in the urinary bladder on CT scan: Urine culture negative, need to follow- up with PCP and urology. # Acute anemia: Monitor closely. possible dc in AM Physician Review: Patient Assessed, Agree with Above Assessment and Plan
[2024-11-17] MEDS: metroNIDAZOLE 500 MG TABLET PO SCH (14:10)
[2024-11-17] MEDS: DIPHENOX/ATROP SULF 1 TAB PO SCH (14:10)
[2024-11-17] MEDS: ONDANSETRON 4 MG/2 ML VIAL IV PRN (21:35)
[2024-11-17] MEDS: Mupirocin NASAL 2 APPL/1 GM TUBE NAS SCH (21:37)
[2024-11-18] MEDS: DIPHENOX/ATROP SULF 1 TAB PO ONE ×2 (00:20→14:41)
[2024-11-18 02:14] VITALS: O2SAT 95
[2024-11-18 05:50] LABS: Absolute Basophils 0.1 K/uL (0-0.5); Absolute Eosinophils 0.7 K/uL (0-0.5); Absolute Lymphocytes (CBC) 2.6 K/uL (0.7-4.9); Absolute Neutrophil 5.9 K/uL (1.8-8.0); Basophils % 1.1 % (0-1.3); Hematocrit 30.5 % (36.0-45.0); Hemoglobin 10.4 g/dL (12.0-15.0); Lymphocytes % 25.2 % (15.3-44.8); MCH 31.1 pg (27.0-35.0); MCV 91.5 fL (80-100); MPV 10.1 fL (7.6-11.3); Neutrophils % 56.7 % (41.7-73.7); Nucleated Red Blood Cells % 0.1 % (0-0); Platelets 280 thou/uL (152-406); RBC Red Blood Cell Count 3.33 M/uL (3.86-4.86); Red Cell Distribution Width 15.4 % (12.1-15.2)
[2024-11-18 06:08] LABS: Anion Gap 8.9 mEq/L (5.0-15.0); Magnesium 1.9 mg/dL (1.6-2.4); Potassium 3.9 mEq/L (3.5-5.1)
[2024-11-18] MEDS: POTASSIUM 25 MEQ EFFERV TAB PO ONE (08:19)
[2024-11-18] MEDS: METHYLPREDNISOLONE 40 MG INJ IV SCH (14:41)
[2024-11-18] MEDS: KETOCONAZOLE CREAM 15 GM TUBE TOP SCH (21:00)
[2024-11-19 07:00] LABS: Anion Gap 9.3 mEq/L (5.0-15.0); Potassium 4.3 mEq/L (3.5-5.1)
[2024-11-19 08:34] VITALS: BP 136/65
[2024-11-19 09:09] VITALS: TEMP 97.5
--- NOTE | 2024-11-19 10:41 | P.PN ---
Date of Service: 11/18/24 Subjective Patient is clinically doing well. Patient denies any new complaints. Patient states she was having diarrhea but we did I had in the room if she has had no diarrhea today. Stool studies have been negative. No signs of any inflammation in the stools. Tolerating diet. Plan to discharge today or in the morning pending GI conversation. Reviewed Physical Examination - Vital Signs Reviewed - Physical Exam General: Alert, Oriented x3 HEENT: Within normal limits Respiratory: Clear to auscultation bilaterally, Normal air movement Cardiovascular: regular rate and rhythm without murmurs Gastrointestinal: Soft and benign, Non-distended Musculoskeletal: No swelling Integumentary: No rashes Neurological: No focal deficits Assessment And Plan -Assessment/Plan (1) Diarrhea secondary to viral gastroenteritis with a leukocytosis and secondary hypokalemia and hypomagnesemia Current Visit: Yes Status: Acute Patient was given IV fluids and patient's clinical conditions have improved. Patient was given Creon for her diarrhea which we will go ahead and discontinue. Creon's main role is steatorrhea treatment and chronic pancreatitis which patient does not have any evidence of. Patient had a stool calprotectin which was negative. Stool studies otherwise have been unremarkable as well. C. difficile was negative. Started on lactobacillus. Patient clinically doing well and will follow-up with gastroenterology as an outpatient. I spoke with Dr. Juárez who wants to see the patient in the office as an outpatient and does not need any further inpatient workup. Patient did want to get the colonoscopy inpatient as she states she was already in the hospital and she did not want to have to pay the after because of an outpatient colonoscopy but unfortunately were unable to do this and clinically she is doing well and can follow-up as mentioned above. (2) Coronary artery disease Current Visit: Yes Status: Chronic -- Stable; continue with cardiac meds (3) COPD Current Visit: Yes Status: Chronic Stable; continue with cardiac meds (4) Metabolic syndrome Current Visit: Yes Status: Chronic Stable; continue with strict blood pressure and blood sugar control and continue with statin therapy (5) Chronic pain Current Visit: Yes Status: Chronic Stable; continue with chronic pain medications (6) Anemia Current Visit: Yes Status: Chronic Stable; continue monitoring H&H Physician Review: Patient Assessed, Agree with Above Assessment and Plan
[2024-11-19 11:51] LABS: STOOL CONSISTENCY Liquid/Semi-Solid
[2024-11-19 11:52] LABS: C.diff Antigen/Toxin Ag neg : Tox neg (NEG : NEG); CDIFF INTERNAL NEG CONTROL White Background (WHITE BKGD)
== END 2024-11-19 11:58 | disposition home or self-care (01) | DRG 392 ==
LOC: ER 09:54 → 2ND 15:01
PROVIDERS: ADMIT Family Medicine; ATTEND Hospitalist
PROC: 02HV33Z Insertion of Infusion Device into Superior Vena Cava, Percutaneous Approach (ICD-10-PCS; principal; 2024-11-17)
DX: K52.9 Noninfective gastroenteritis and colitis, unspecified (principal); N39.0 Urinary tract infection, site not specified; E86.0 Dehydration; E83.51 Hypocalcemia; E87.6 Hypokalemia; I10 Essential (primary) hypertension; E78.5 Hyperlipidemia, unspecified; G89.29 Other chronic pain; E88.810 Metabolic syndrome; D63.8 Anemia in other chronic diseases classified elsewhere; J44.9 Chronic obstructive pulmonary disease, unspecified; I25.10 Atherosclerotic heart disease of native coronary artery without angina pectoris; Z88.5 Allergy status to narcotic agent; Z88.8 Allergy status to other drugs, medicaments and biological substances; Z79.82 Long term (current) use of aspirin; Z87.891 Personal history of nicotine dependence; Z79.899 Other long term (current) drug therapy
CPT/HCPCS: 36415; 71045; 74177; 80048; 80053; 80069; 81001; 83605; 83615; 83690; 83735; 83993; 84132; 84145; 84484; 85025; 85610; 85730; 87040; 87045; 87046; 87086; 87088; 87177; 87209; 87324; 89055; 93005; 96365; 96375; 99285; J0360; J0612; J2405; J2543; J2919; J3475; J3480; J3535; J7030; Q9967

== ENCOUNTER 2025-02-27 08:47 | Emergency (ER) | payer OTHER ==
--- OUTSIDE RECORDS SUMMARY | 2025-02-27 08:57 | XMS REPORT | Continuity of Care Document ---
Author Name Unknown Address [address] [facility]. [address] [place] [address] [facility] Address [address] [facility] [address] [place] [address] Care Team Providers Care Manager Academic Name Role Phone JORGE ESPINOZA Primary Care Physician Unavailab Denny Nolen Attending Clinician Unavailable LISA BATISTA Attending Clinician Unavailable LISA BATISTA Attending Clinician Unavailable Ariane Thomas Attending Clinician Unavailable GREYSON MARTE Attending Clinician UnavailPati Balderrama MD Attending Clinician [phone] Doctor Unassigned, [place] Attending Clinician U Pati Pickett MD Attending Clinician [phone] PATI MARTIN Attending Clinician Unavailable SHERIDAN SAUNDERS Attending Clinician Unavailab desiree Saunders CAMPAIGN MANAGEMENT SENIOR MANAGER, Sheridan Foley Attending Clinician [phone] Sara NGUYENWElizabet Attending Clinician U Marlyn Augustine Attending Clinician [phone] Dwight Charles MD Attending Clinician [phone] Chad Fitzgerald MD Attending Clinician [phone] CANDICE Attending Clinician UnavailGreyson Ramos MD Attending Clinician [phone] Nidia Nolasco CRNA Attending Clinician + [phone] Prabhakar Sandoval MD Attending Clinician [phone] Only, [facility] Test Attending Clinician Unavailable Nurse, [facility] General Surgery Attending Clinician U tim Rosado, [facility] Lab Main Attending Clinician UnavailJORGE Kirk Attending Clinician Unavailable Marcia Attending Clinician Unavailable LISA BATISTA Admitting Clinician Unavailable GREYSON MARTE Admitting Clinician UnavailDWIGHT Cherry Admitting Clinician Unavailable Dwight Charles MD Admitting Clinician [phone] CANDICE Admitting Clinician UnavailGreyson Ramos MD Admitting Clinician [phone] JORGE ESPINOZA Admitting Clinician Unavailable Marcia Admitting Clinician Unavailable Payers Payer Name Policy Type Policy Number Effective Date Expirati on Date Source [employer] MEDICARE ADVANTAGE [id number] 2022 00:00:00 [employer] CHOICE [id number] 2019 00:00:00 [facility] AARP MCR Advantage (HMO-POS) 53 [id number] 2023 00:00:00 [facility] MEDICARE SOLUTIONS 53 [id number] 2020 00:00:00 [facility] - [facility] IM[facility] - REGIONAL (MEDICARE REPLACEMENT PPO) [id number] [place] B-[place]: DANAE HARVEY [id number] 2011 00:00:00 Problems Condition Name Condition Details Condition Category Status Onset Date Resolution Date Last Treatment Date Treating Clinician Comments Source 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 on 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 on Disease Active 08-04 00:00: 00 [facility] Neck pain Neck pain Disease Active 1- 00:00: 00 [facility] Carpal tunnel syndrome (disorder) Carpal tunnel syndrome (disorder) Active Problem 08/15/2022 [facility] [place] Problem Active 2022-08-15 23:08:19 Memoria paramjit Bose Cervical myelopathy (disorder) Cervical myelopathy (disorder) Active Problem 08/15/2022 [facility] [place] Problem Active 2022-08-15 23:08:19 Memoria paramjit Bose Cervical radiculopa thy (disorder) Cervical radiculopa thy (disorder) Active Problem 08/15/2022 [facility] [place] Problem Active 2022-08-15 23:08:19 Juniororia paramjit Bose Low back pain Low back pain, unspecifie d Problem [facility] [id number] Bilateral carpal tunnel syndrome Problem [facility] [id number] PAD (periphera l artery disease) Problem [facility] [id number] Mixed hyperlipid emia Problem [facility] [id number] Low back pain Problem [facility] COPD - Chronic obstructiv e pulmonary disease COPD (chronic obstructiv e pulmonary disease) Problem [facility] [id number] Lymphocyto sis Problem [facility] [id number] Other chronic pain Problem [facility] [id number] Malignant hypertensi ve urgency Problem [facility] Hypertensi on Hypertensi on Problem [facility] [id number] Coronary artery disease involving [place] coronary artery of [place] heart without angina pectoris Problem [facility] [id number] Leukocytos is, unspecifie d Problem [facility] [id number] 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 Problem [facility] [id number] Tobacco use disorder Problem [facility] No known active problems No known active problems Disease [facility] Allergies, Adverse Reactions, Alerts Allergy Name Allergy Type Status Severity Reaction(s) Onset Date Inactive Date Treating Clinician Comments Source PRAVASTA TIN DRUG INGREDI Active NAUSEA ONLY 08-05 00:00: 00 [facility] Pravasta tin Drug Allergy Active Nausea Only 08-05 00:00: 00 [facility] OSELTAMI VIR PHOSPHAT E DRUG INGREDI Active Dizziness 11-20 00:00: 00 [facility] Oseltami vir Phosphat e Propensi ty to adverse reaction s Active Dizziness 11-20 00:00: 00 [facility] PROPOXYP HENE HCL DRUG INGREDI Active Hallucinates 09-21 00:00: 00 [facility] MEPERIDI NE HCL DRUG INGREDI Active Hallucinates 09-21 00:00: 00 [facility] Propoxyp hene Hcl Propensi ty to adverse reaction s Active Hallucinatio ns 09-21 00:00: 00 [facility] Meperidi ne Hcl Propensi ty to adverse reaction s Active Hallucinatio ns 09-21 00:00: 00 [facility] oseltami vir oseltami vir Active Unknown [facility] meperidi ne meperidi ne Active Unknown [facility] [id number] Drug allergy Active Unknown [facility] Social History Social Habit Start Date Stop Date Quantity Comments Source History SDOH Social Connections [facility] History SDOH Social Connections Membership [facility] History SDOH Social Connections Meetings [facility] History SDOH Food Scarcity [facility] Gender [facility] History of tobacco use Passive smoker [facility] History SDOH Social Connections Phone [facility] History SDOH Social Connections Get Together [facility] Exposure to SARS-CoV-2 (event) 2022-09-13 00:00:00 2022-09-23 10:11:00 Not sure [facility] Tobacco use and exposure 2022-07-28 00:00:00 2022-07-28 00:00:00 Former smokeless tobacco user [facility] History SDOH Alcohol Frequency 2022-07-28 00:00:00 2022-07-28 00:00:00 1 [facility] History SDOH Alcohol Std Drinks 2022-07-28 00:00:00 2022-07-28 00:00:00 0 [facility] History SDOH Alcohol Binge 2022-07-28 00:00:00 2022-07-28 00:00:00 1 [facility] History SDOH Social Connections Living 2022-07-28 00:00:00 2022-07-28 00:00:00 4 [facility] History SDOH Physical Activity DPW 2022-07-28 00:00:00 2022-07-28 00:00:00 0 [facility] History SDOH Physical Activity MPS 2022-07-28 00:00:00 2022-07-28 00:00:00 0 [facility] History SDOH Financial 2022-07-28 00:00:00 2022-07-28 00:00:00 5 [facility] History SDOH Food Worry 2022-07-28 00:00:00 2022-07-28 00:00:00 1 [facility] History SDOH Transport Med 2022-07-28 00:00:00 2022-07-28 00:00:00 2 [facility] History SDOH Transport Non-Med 2022-07-28 00:00:00 2022-07-28 00:00:00 2 [facility] History of Social function 2019-12-05 00:00:00 2019-12-05 00:00:00 [facility] Smoking Status Start Date Stop Date Source Unknown if ever smoked [facility] Former Smoker 2023-08-17 00:00:00 2023-08-17 00:00:00 [facility] Never Smoker [facility] Smokes tobacco daily 2022-07-28 00:00:00 [facility] Medications Ordered Medication Name Filled Medication Name Start Date Stop Date Current Medication? Ordering Clinician Indication Dosage Frequency Signature (SIG) Comments Components Source polyethylen e glycol 3350 17 gram powder 08-14 00:00: 00 09-14 05:59 :00 No [id number] 17g Take 1 Packet by mouth in the morning for 30 days. [facility] lisinopril (ZESTRIL) 5 mg tablet 08-13 17:55: 41 Yes 5mg Take 5 mg by mouth daily. [facility] atenolol (TENORMIN) 25 mg tablet 08-13 17:55: 41 Yes 25mg Take 25 mg by mouth 2 (two) times daily. [facility] ISOSORBIDE ORAL 08-13 17:55: 41 Yes 30mg Take 30 mg by mouth daily. [facility] amLODIPine (NORVASC) 10 mg tablet 08-13 17:55: 41 Yes 10mg Take 10 mg by mouth daily. [facility] POTASSIUM GLUCONATE ORAL 08-13 17:55: 41 Yes 2{tbl} Take 2 Tabs by mouth 2 (two) times daily. [facility] metoprolol tartrate 25 mg tablet 08-13 17:55: 41 Yes 25mg Take 25 mg by mouth 2 (two) times daily. [facility] clopidogrel (PLAVIX) 75 mg tablet 08-13 13:03: 46 08-13 00:00 :00 No 75mg Take 75 mg by mouth daily. [facility] aspirin 81 mg tablet 08-13 13:03: 46 08-13 00:00 :00 No 81mg Take 81 mg by mouth daily. [facility] lisinopril (ZESTRIL) 5 mg tablet 08-13 13:03: 42 Yes 5mg Take 5 mg by mouth daily. [facility] atenolol (TENORMIN) 25 mg tablet 08-13 13:03: 42 Yes 25mg Take 25 mg by mouth 2 (two) times daily. [facility] ISOSORBIDE ORAL 08-13 13:03: 42 Yes 30mg Take 30 mg by mouth daily. [facility] amLODIPine (NORVASC) 10 mg tablet 08-13 13:03: 42 Yes 10mg Take 10 mg by mouth daily. [facility] metoprolol tartrate 25 mg tablet 08-13 13:03: 42 Yes 25mg Take 25 mg by mouth 2 (two) times daily. [facility] methocarbam oL 1,000 mg Tab 08-13 00:00: 00 11-12 04:59 :00 No [id number] 1000mg Take 1,000 mg by mouth 4 (four) times daily for 90 days. [facility] gabapentin 300 mg capsule 08-13 00:00: 00 11-12 04:59 :00 No [id number] 300mg Take 1 capsule by mouth in the morning and 1 capsule at noon and 1 capsule in the evening. Do all this for 90 days. [facility] KCL (KLOR-CON M20) tablet 40 mEq 08-12 02:00: 00 08-12 02:25 :00 No 40meq 40 mEq, Oral, ONCE, 1 dose, On Tue08/11/22 at 2000, Routine [facility] KCL (KLOR-CON M20) tablet 40 mEq 08-11 13:30: 00 08-11 14:59 :00 No 40meq 40 mEq, Oral, ONCE, 1 dose, On Tue08/11/22 at 0730, Routine [facility] enoxaparin (LOVENOX) injection 40 mg 08-06 15:45: 00 Yes 40mg 40 mg, Subcutaneo us, Q24H, First dose on Tue08/06/22 at 0945, Until Discontinu ed, Routine [facility] polyethylen e glycol 3350 powder 17 g 08-06 15:00: 00 Yes 17g 17 g, Oral, DAILY, First dose on Tue08/06/22 at 0900, Until Discontinu ed, Routine [facility] morpHINE (2 mg/mL) injection 4 mg 08-06 14:45: 00 Yes 4mg 4 mg, Slow IV Push, Q3HPRN, Starting on Tue08/06/22 at 0845, Until Discontinu ed, Routine, breakthrou gh pain scale 4-10 [facility] sennosides (SENOKOT) tablet 8.6 mg 08-06 14:45: 00 Yes 8.6mg 8.6 mg, Oral, BID, First dose on Tue08/06/22 at 0845, Until Discontinu ed, Routine [facility] oxyCODONE immediate release tablet 5 mg 08-06 14:40: 41 Yes 5mg 5 mg, Oral, Q4HPRN, Starting on Tue08/06/22 at 0840, Until Discontinu ed, Routine, Pain (scale 7-10)
F aculty member approving Restricted medication : PATI MARTIN [facility] proMETHazin e (PHENERGAN) 12.5 mg in NS 50 mL IV piggyback (CNR) 08-06 04:15: 00 08-06 04:06 :00 No 12.5mg 12.5 mg, IV Piggyback, at 200 mL/hr Administer over 15 Minutes, ONCE, 1 dose, On Tue08/05/22 at 2215, Routine [facility] ceFAZolin (ANCEF) 2,000 mg in NaCl 0.9% [...] of therapy: within 24 hours of surgery [facility] acetaminoph en (TYLENOL) tablet 650 mg 08-05 23:00: 00 Yes 650mg 650 mg, Oral, Q8H, First dose on Tue08/05/22 at 1700, Until Discontinu ed, Routine [facility] HYDROcodone -acetaminop hen (NORCO 5) 5-325 mg tablet 1 tablet 08-05 22:45: 00 08-05 23:32 :00 No 1{tbl} 1 tablet, Oral, ONCE, 1 dose, On Tue08/05/22 at 1645, Routine, PACU [facility] HYDROmorphO ne (DILAUDID) injection 0.2 mg 08-05 22:41: 50 08-06 00:08 :30 No .2mg 0.2 mg, Slow IV Push, Q5MIN PRN, 10 doses, Starting on Tue08/05/22 at 1641, Until Tue08/05/22 at 1808, Routine, Pain (scale 7-10), PACU
Us e approved by (Faculty): PACU USE -ANESTHESI A SERVICE-HY DROMORPHON E INJECTIONS [facility] vancomycin (VANCOCIN) injection 08-05 21:55: 00 Yes PRN, Starting on Tue08/05/22 at 1555, Until Discontinu ed, LASHONDA, Intra-op [facility] lidocaine-e pinephrine (XYLOCAINE WITH EPINEPHRINE ) 1 %-1:100,000 injection 08-05 19:39: 00 Yes PRN, Starting on Tue08/05/22 at 1339, Until Discontinu ed, Routine, Intra-op [facility] enoxaparin (LOVENOX) injection 40 mg 2023-0 1-15 15:00: 00 08-05 00:00 :23 No 40mg 40 mg, Subcutaneo us, Q24H, First dose on Tue08/01/22 at 0900, Until Discontinu ed, Routine [facility] ondansetron (ZOFRAN (PF)) injection 4 mg 07-31 19:12: 46 Yes 4mg 4 mg, Slow IV Push, Q6HPRN, Nausea and Vomiting (N/V), Starting on 07/31/22 at 1312
Do ses of ondansetro n 16 mg and above need to be administer ed via IV piggyback. For Dose >=24mg ECG monitoring is advisable.
[facility] tc 99m-labeled red blood cells (ULTRATAG RBC) injection 25.4 millicurie 07-30 15:45: 00 07-30 15:36 :00 No [id number] 25.4mCi 25.4 millicurie , Intravenou s, ONCE, 1 dose, On Tue07/30/22 at 0945, Routine [facility] perflutren lipid microsphere s (DEFINITY) injection 2 mL 07-29 20:00: 00 07-29 20:00 :00 No [id number] 2mL 2 mL, IV Push, ONCE, 1 dose, On Tue07/29/22 at 1400, Routine [facility] regadenoson (LEXISCAN) injection 0.4 mg 07-29 16:15: 00 07-29 15:36 :00 No [id number] .4mg 0.4 mg, IV Push, ONCE, 1 dose, On Tue07/29/22 at 1015, Routine
rock climbing team member approving Restricted medication : MARJORIE MARIA [facility] tc 99m-tetrofo smin (MYOVIEW) injection 15.9 millicurie 07-29 15:45: 00 07-29 15:37 :00 No [id number] 15.9mCi 15.9 millicurie , Intravenou s, ONCE, 1 dose, On Tue07/29/22 at 0945, Routine [facility] cholecalcif ilia (vitamin D3) tablet 1,000 Units 07-28 15:00: 00 Yes 1000U 1,000 Units, Oral, DAILY, First dose on Tue07/28/22 at 0900, Until Discontinu ed [facility] enoxaparin (LOVENOX) injection 40 mg 07-28 15:00: 00 07-29 04:29 :03 No 40mg 40 mg, Subcutaneo us, DAILY, First dose on Tue07/28/22 at 0900, Until Discontinu ed, Routine [facility] gabapentin (NEURONTIN) capsule 300 mg 07-28 02:00: 00 Yes 300mg 300 mg, Oral, TID, First dose on Tue07/27/22 at 2000, Until Discontinu ed, Routine [facility] famotidine (PEPCID AC) tablet 20 mg 07-28 02:00: 00 Yes 20mg 20 mg, Oral, BID, First dose on Tue07/27/22 at 2000, Until Discontinu ed, Routine [facility] docusate (COLACE) capsule 100 mg 07-28 02:00: 00 Yes 100mg 100 mg, Oral, BID, First dose on Tue07/27/22 at 2000, Until Discontinu ed, Routine [facility] metoprolol tartrate (LOPRESSOR) tablet 25 mg 07-28 02:00: 00 07-28 23:50 :55 No 25mg 25 mg, Oral, BID, First dose on Tue07/27/22 at 2000, Until Discontinu ed, Routine [facility] HYDROcodone -acetaminop hen (NORCO 5) 5-325 mg tablet 1 tablet 07-28 01:49: 15 08-06 14:41 :49 No 1{tbl} 1 tablet, Oral, Q6HPRN, Starting on Tue07/27/22 at 1949, Until Tue08/06/22 at 0841, Routine, Pain (scale 4-6) [facility] morpHINE (2 mg/mL) injection 2 mg 07-28 01:47: 51 08-06 14:41 :49 No 2mg 2 mg, Slow IV Push, Q2HPRN, Starting on Tue07/27/22 at 1947, Until Tue08/06/22 at 0841, Routine, Pain (scale 7-10) [facility] bisacodyL (DULCOLAX) suppository 10 mg 07-28 01:45: 59 Yes 10mg 10 mg, Rectal, QHSPRN, Starting on Tue07/27/22 at 1945, Until Discontinu ed, Routine, Constipati on [facility] NaCl 0.9% (NS) injection 5 mL 07-28 01:45: 59 Yes 5mL 5 mL, Slow IV Push, PRN - SEE INSTRUCTIO NS, Starting on Tue07/27/22 at 1945, Until Discontinu ed, 10 mL [facility] lisinopril (ZESTRIL) 5 mg tablet 07-27 19:48: 46 Yes 5mg Take 5 mg by mouth daily. [facility] atenolol (TENORMIN) 25 mg tablet 07-27 19:48: 46 Yes 25mg Take 25 mg by mouth 2 (two) times daily. [facility] ISOSORBIDE ORAL 07-27 19:48: 46 Yes 30mg Take 30 mg by mouth daily. [facility] clopidogrel (PLAVIX) 75 mg tablet 07-27 19:48: 46 Yes 75mg Take 75 mg by mouth daily. [facility] amLODIPine (NORVASC) 10 mg tablet 07-27 19:48: 46 Yes 10mg Take 10 mg by mouth daily. [facility] aspirin 81 mg tablet 07-27 19:48: 46 Yes 81mg Take 81 mg by mouth daily. [facility] metoprolol tartrate 25 mg tablet 07-27 19:48: 46 Yes 25mg Take 25 mg by mouth 2 (two) times daily. [facility] ketorolac (TORADOL) injection 30 mg 07-27 18:30: 00 07-27 18:18 :00 No 30mg 30 mg, Intramuscu lar, ONCE, 1 dose, On Tue07/27/22 at 1230, Routine [facility] dexamethaso ne (DECADRON PHOSPHATE) injection 10 mg 07-27 18:30: 00 07-27 18:17 :00 No 10mg 10 mg, Oral, ONCE, 1 dose, On Tue07/27/22 at 1230, Routine [facility] methocarbam oL (ROBAXIN) tablet 1,000 mg 07-27 18:00: 00 Yes 1000mg 1,000 mg, Oral, QID, First dose on Tue07/27/22 at 1200, Until Discontinu ed, Routine [facility] Acetaminoph en-Codeine 300-30 MG Acetaminoph en-Codeine 300-30 MG -15 00:00: 00 No 1{table t_as_ne eded} Acetaminop hen-Codein e 300-30 MG lisinopril (ZESTRIL) 5 mg tablet 12-04 20:06: 53 Yes 5mg Take 5 mg by mouth daily. [facility] atenolol (TENORMIN) 25 mg tablet 12-04 20:06: 53 Yes 25mg Take 25 mg by mouth 2 (two) times daily. [facility] ISOSORBIDE ORAL 12-04 20:06: 53 Yes 30mg Take 30 mg by mouth daily. [facility] clopidogrel (PLAVIX) 75 mg tablet 12-04 20:06: 53 Yes 75mg Take 75 mg by mouth daily. [facility] amLODIPine (NORVASC) 10 mg tablet 12-04 20:06: 53 Yes 10mg Take 10 mg by mouth daily. [facility] POTASSIUM GLUCONATE ORAL 12-04 20:06: 53 Yes 2{tbl} Take 2 Tabs by mouth 2 (two) times daily. [facility] aspirin 81 mg tablet 12-04 20:06: 53 Yes 81mg Take 81 mg by mouth daily. [facility] metoprolol tartrate 25 mg tablet 12-04 20:06: 53 Yes 25mg Take 25 mg by mouth 2 (two) times daily. [facility] ergocalcife rol, vitamin D2, (VITAMIN D ORAL) 12-04 20:06: 53 Yes Take by mouth. [facility] lactated ringers IV infusion 500 mL 12-04 17:30: 00 Yes 500mL at 75 mL/hr, 500 mL, IV Infusion, CONTINUOUS , Starting Tue12/05/19 at 1230, Until Discontinu ed, Routine, PACU [facility] sodium chloride (NS) injection 12-04 17:03: 00 Yes PRN, Starting Tue12/05/19 at 1203, Until Discontinu ed, Routine, Intra-op [facility] lidocaine-e pinephrine (XYLOCAINE W/EPINEPHRI NE) 2 %-1:200,000 injection 12-04 17:03: 00 Yes PRN, Starting Tue12/05/19 at 1203, Until Discontinu ed, Routine, Intra-op [facility] neomycin-po lymyxin-dex amethasone (MAXITROL) 3.5 mg/g-10,000 unit/g-0.1 % ophthalmic ointment 12-04 17:01: 00 Yes PRN, Starting Tue12/05/19 at 1201, Until Discontinu ed, Routine, Intra-op [facility] gentamicin injection 12-04 17:00: 00 Yes PRN, Starting Tue12/05/19 at 1200, Until Discontinu ed, LASHONDA, Intra-op [facility] water for irrigation irrigation solution 12-04 16:55: 00 Yes PRN, Starting Tue12/05/19 at 1155, Until Discontinu ed, Routine, [facility] Hy[facility], Human Recomb. (HYLENEX) injection 12-04 16:50: 00 Yes PRN, Starting Tue12/05/19 at 1150, Until Discontinu ed, Routine, Intra-op [facility] propofol IV infusion 12-04 16:50: 00 12-04 17:11 :01 No Intravenou s, ONCE INTRA PROCEDURE, Starting Tue12/05/19 at 1150, Until Tue12/05/19 at 1211, Routine, [facility]-op [facility] remifentani l (ULTIVA) injection 12-04 16:50: 00 12-04 17:11 :01 No Intravenou s, ONCE INTRA PROCEDURE, Starting Tue12/05/19 at 1150, Until Tue12/05/19 at 1211, Routine, Intra-op [facility] lactated ringers IV infusion 12-04 16:44: 00 12-04 17:11 :01 No IV Infusion, CONTINUOUS PRN, Starting Tue12/05/19 at 1144, Until Tue12/05/19 at 1211, Routine, Intra-op [facility] EPINEPHrine 1:1,000 (1 mg/mL) (ADRENALIN) injection 12-04 16:36: 00 Yes PRN, Starting Tue12/05/19 at 1136, Until Discontinu ed, Routine, Intra-op [facility] DUOVISC (DUOVISC VISCO ELASTIC) 3 %-4 %(0.5 mL) 1 % (0.55 mL) intraocular injection 12-04 16:36: 00 Yes PRN, Starting Tue12/05/19 at 1136, Until Discontinu ed, Routine, Intra-op [facility] dexamethaso ne (DECADRON PHOSPHATE) injection 12-04 16:36: 00 Yes PRN, Starting Tue12/05/19 at 1136, Until Discontinu ed, Routine, Intra-op [facility] ceFAZolin (ANCEF) injection 12-04 16:36: 00 Yes PRN, Starting Tue12/05/19 at 1136, Until Discontinu ed, LASHONDA, Intra-op [facility] carbachoL (MIOSTAT) 0.01 % intraocular injection 12-04 16:36: 00 Yes PRN, Starting Tue12/05/19 at 1136, Until Discontinu ed, Routine, Intra-op [facility] bupivacaine (preserv free) (SENSORCAIN E MPF) 0.75 % (7.5 mg/mL) injection 12-04 16:35: 00 Yes PRN, Starting 12/05/19 at 1135, Until Discontinu ed, Routine, Intra-op [facility] balanced salt irrig soln comb1 (BSS PLUS) ophthalmic solution 500 mL bag 12-04 16:35: 00 Yes PRN, Starting Tue12/05/19 at 1135, Until Discontinu ed, Routine, Intra-op [facility] mydriatic #5 ophthalmic solution 0.5 mL syringe 12-04 15:30: 12-04 15:39 :00 No .5mL 0.5 mL, Left Eye, ONCE, 1 dose, 12/05/19 at 1030, Routine, DSU Pre-op [facility] lactated ringers IV infusion 500 mL 12-04 15:30: 12-04 15:39 :00 No 500mL at 20 mL/hr, 500 mL, IV Infusion, ONCE, 1 dose, Tue12/05/19 at 1030, Routine, DSU Pre-op [facility] clopidogrel (PLAVIX) 75 mg tablet 12-03 13:18: 00 Yes 75mg Take 75 mg by mouth daily. [facility] lisinopril (ZESTRIL) 5 mg tablet 11-20 18:51: 29 Yes 5mg Take 5 mg by mouth daily. [facility] atenolol (TENORMIN) 25 mg tablet 11-20 18:51: 29 Yes 25mg Take 25 mg by mouth 2 (two) times daily. [facility] ISOSORBIDE ORAL 11-20 18:51: 29 Yes 30mg Take 30 mg by mouth daily. [facility] amLODIPine (NORVASC) 10 mg tablet 11-20 18:51: 29 Yes 10mg Take 10 mg by mouth daily. [facility] POTASSIUM GLUCONATE ORAL 11-20 18:51: 29 Yes 2{tbl} Take 2 Tabs by mouth 2 (two) times daily. [facility] aspirin 81 mg tablet 11-20 18:51: 29 Yes 81mg Take 81 mg by mouth daily. [facility] metoprolol tartrate 25 mg tablet 11-20 18:51: 29 Yes 25mg Take 25 mg by mouth 2 (two) times daily. [facility] ergocalcife rol, vitamin D2, (VITAMIN D ORAL) 11-20 18:51: 29 Yes Take by mouth. [facility] clopidogrel (PLAVIX) 75 mg tablet 11-20 18:51: 29 Yes 75mg Take 75 mg by mouth daily. [facility] lactated ringers IV infusion 1,000 mL 11-20 16:00: 00 Yes 1000mL at 75 mL/hr, 1,000 mL, IV Infusion, CONTINUOUS , Starting Tue11/21/19 at 1100, Until Discontinu ed, Routine, PACU [facility] water for irrigation irrigation solution 11-20 14:30: 00 Yes PRN, Starting Tue11/21/19 at 0930, Until Discontinu ed, Routine, Intra-op [facility] sodium chloride (NS) injection 11-20 14:29: 00 Yes PRN, Starting Tue11/21/19 at 0929, Until Discontinu ed, Routine, Intra-op [facility] neomycin-po lymyxin-dex amethasone (MAXITROL) 3.5 mg/g-10,000 unit/g-0.1 % ophthalmic ointment 11-20 14:29: 00 Yes PRN, Starting Tue11/21/19 at 0929, Until Discontinu ed, Routine, Intra-op [facility] lidocaine-e pinephrine (XYLOCAINE W/EPINEPHRI NE) 2 %-1:200,000 injection 11-20 14:29: 00 Yes PRN, Starting Tue11/21/19 at 0929, Until Discontinu ed, Routine, Intra-op [facility] Hyaluronida se, Human Recomb. (HYLENEX) injection 11-20 14:28: 00 Yes PRN, Starting Tue11/21/19 at 0928, Until Discontinu ed, Routine, Intra-op [facility] gentamicin injection 11-20 14:28: 00 Yes PRN, Starting Tue11/21/19 at 09, Until Discontinu ed, LASHONDA, Intra-op [facility] EPINEPHrine 1:1,000 (1 mg/mL) (ADRENALIN) injection 11-20 14:27: 00 Yes PRN, Starting Tue11/21/19 at 09, Until Discontinu ed, Routine, Intra-op [facility] DUOVISC (DUOVISC VISCO ELASTIC) 3 %-4 %(0.5 mL) 1 % (0.55 mL) intraocular injection 11-20 14:27: 00 Yes PRN, Starting Tue11/21/19 at 09, Until Discontinu ed, Routine, Intra-op [facility] dexamethaso ne (DECADRON PHOSPHATE) injection 11-20 14:27: 00 Yes PRN, Starting Tue11/21/19 at 09, Until Discontinu ed, Routine, Intra-op [facility] ceFAZolin (ANCEF) injection 11-20 14:26: 00 Yes PRN, Starting Tue11/21/19 at 09, Until Discontinu ed, LASHONDA, Intra-op [facility] carbachoL (MIOSTAT) 0.01 % intraocular injection 11-20 14:26: 00 Yes PRN, Starting Tue11/21/19 at 0926, Until Discontinu ed, Routine, Intra-op [facility] bupivacaine (preserv free) (SENSORCAIN E MPF) 0.75 % (7.5 mg/mL) injection 11-20 14:25: 00 Yes PRN, Starting Tue11/21/19 at 0925, Until Discontinu ed, Routine, Intra-op [facility] balanced salt irrig soln comb1 (BSS PLUS) ophthalmic solution 500 mL bag 11-20 14:25: 00 Yes PRN, Starting Tue11/21/19 at 0925, Until Discontinu ed, Routine, Intra-op [facility] lactated ringers IV infusion 1,000 mL 11-20 14:15: 00 11-20 15:14 :00 No 1000mL at 50 mL/hr, 1,000 mL, IV Infusion, CONTINUOUS , Starting Tue11/21/19 at 0915, Until Tue11/21/19 at 1014, Routine, DSU Pre-op [facility] lisinopril (ZESTRIL) 5 mg tablet 11-19 13:44: 30 Yes 5mg Take 5 mg by mouth daily. [facility] ISOSORBIDE ORAL 11-19 13:44: 30 Yes 30mg Take 30 mg by mouth daily. [facility] clopidogrel (PLAVIX) 75 mg tablet 11-19 13:44: 30 Yes 75mg Take 75 mg by mouth daily. [facility] amLODIPine (NORVASC) 10 mg tablet 11-19 13:44: 30 Yes 10mg Take 10 mg by mouth daily. [facility] metoprolol tartrate 25 mg tablet 11-19 13:44: 29 Yes 25mg Take 25 mg by mouth 2 (two) times daily. [facility] ergocalcife rol, vitamin D2, (VITAMIN D ORAL) 11-19 13:44: 29 Yes Take by mouth. [facility] amLODIPine (NORVASC) 10 mg tablet 09-21 18:54: 43 Yes 10mg Take 10 mg by mouth daily. [facility] POTASSIUM GLUCONATE ORAL 09-21 18:54: 43 Yes 2{tbl} Take 2 Tabs by mouth 2 (two) times daily. [facility] aspirin 81 mg tablet 09-21 18:54: 43 Yes 81mg Take 81 mg by mouth daily. [facility] ISOSORBIDE ORAL 09-21 18:54: 42 Yes 30mg Take 30 mg by mouth daily. [facility] clopidogrel (PLAVIX) 75 mg tablet 09-21 18:54: 42 Yes 75mg Take 75 mg by mouth daily. [facility] atenolol (TENORMIN) 25 mg tablet 09-21 18:54: 42 Yes 25mg Take 25 mg by mouth 2 (two) times daily. [facility] lisinopril (ZESTRIL) 5 mg tablet 09-21 18:54: 41 Yes 5mg Take 5 mg by mouth daily. [facility] Meloxicam 7.5 MG Meloxicam 7.5 MG No 1{table t} Meloxicam 7.5 MG Rosuvastati n Calcium 40 MG Rosuvastati n Calcium 40 MG No Rosuvastat in Calcium 40 MG traMADol HCl 50 MG traMADol HCl 50 MG No 1{table t_as_ne eded} TID traMADol HCl 50 MG Metoprolol Tartrate 100 MG Metoprolol Tartrate 100 MG No 1{table t_with_ food} BID Metoprolol Tartrate 100 MG Dulera 100-5 MCG/ACT Dulera 100-5 MCG/ACT No Dulera 100-5 MCG/ACT Creon [id number] UNIT Creon [id number] UNIT No 1{capsu le} BID Creon [id number] 0 UNIT Alendronate Sodium 70 MG Alendronate Sodium 70 MG No Alendronat e Sodium 70 MG Zofran 4 MG Zofran 4 MG No 1{table t} TID Zofran 4 MG Crestor 40 MG Crestor 40 MG No 1{table t} QD Crestor 40 MG Vital Signs Vital Name Observation Time Observation Value Comments S ource height 2024-12-11 11:15:00 60 [in_i] [facility] weight 2024-12-11 11:15:00 102.6 [lb_av] Co mmon [facility] temperature 2024-12-11 11:15:00 97.6 [degF] Com mon [facility] bmi 2024-12-11 11:15:00 20.04 kg/m2 Comm on [facility] oximetry 2024-12-11 11:15:00 97 % [facility] respiratory rate 2024-12-11 11:15:00 16 /min [facility] blood pressure systolic 2024-12-11 11:15:00 112 mm[Hg] [facility] blood pressure diastolic 2024-12-11 11:15:00 58 mm[Hg] [facility] height 2024-11-27 11:00:00 60 [in_i] [facility]mo n [facility] weight 2024-11-27 11:00:00 99.4 [lb_av] Com [facility] temperature 2024-11-27 11:00:00 97.3 [degF] Com [facility] bmi 2024-11-27 11:00:00 19.41 kg/m2 Comm on [facility] oximetry 2024-11-27 11:00:00 99 % [facility] respiratory rate 2024-11-27 11:00:00 16 /min [facility] blood pressure systolic 2024-11-27 11:00:00 120 mm[Hg] [facility] blood pressure diastolic 2024-11-27 11:00:00 58 mm[Hg] [facility] height 2023-10-13 10:00:00 60 [in_i] [facility]mo [facility] weight 2023-10-13 10:00:00 98.8 [lb_av] Com [facility] temperature 2023-10-13 10:00:00 97.7 [degF] Com [facility] bmi 2023-10-13 10:00:00 19.29 kg/m2 Comm on [facility] oximetry 2023-10-13 10:00:00 98 % [facility] respiratory rate 2023-10-13 10:00:00 18 /min [facility] blood pressure systolic 2023-10-13 10:00:00 139 mm[Hg] [facility] blood pressure diastolic 2023-10-13 10:00:00 70 mm[Hg] Common [facility] height 2023-05-25 11:30:00 60 [in_i] [facility]mo [facility] weight 2023-05-25 11:30:00 108.6 [lb_av] Co mmon [facility] temperature 2023-05-25 11:30:00 97.7 [degF] Com mon [facility] bmi 2023-05-25 11:30:00 21.21 kg/m2 Comm on [facility] oximetry 2023-05-25 11:30:00 96 % [facility] respiratory rate 2023-05-25 11:30:00 16 /min [facility] blood pressure systolic 2023-05-25 11:30:00 126 mm[Hg] [facility] blood pressure diastolic 2023-05-25 11:30:00 68 mm[Hg] [facility] Systolic blood pressure 2022-09-23 17:03:00 139 mm[Hg] [facility] Diastolic blood pressure 2022-09-23 17:03:00 79 mm[Hg] [facility] Heart rate 2022-09-23 17:03:00 120 /min [facility] Body height 2022-09-23 17:03:00 152.4 cm [facility] Body weight 2022-09-23 17:03:00 43.001 kg [facility] BMI 2022-09-23 17:03:00 18.51 kg/m2 [facility] Systolic blood pressure 2022-08-13 17:05:00 155 mm[Hg] [facility] Diastolic blood pressure 2022-08-13 17:05:00 74 mm[Hg] [facility] Heart rate 2022-08-13 17:05:00 107 /min [facility] Body temperature 2022-08-13 17:05:00 36.78 Gabbi [facility] Respiratory rate 2022-08-13 17:05:00 15 /min [facility] Oxygen saturation in Arterial blood by Pulse oximetry 2022-08-13 17:05:00 99 /min [facility] Body weight 2022-08-04 15:00:00 43.5 kg [facility] BMI 2022-08-04 15:00:00 17.54 kg/m2 [facility] Body height 2022-07-27 16:36:00 157.5 cm [facility] Systolic blood pressure 2022-08-05 23:00:00 155 mm[Hg] [facility] Diastolic blood pressure 2022-08-05 23:00:00 70 mm[Hg] [facility] Respiratory rate 2022-08-05 23:00:00 18 /min [facility] Oxygen saturation in Arterial blood by Pulse oximetry 2022-08-05 23:00:00 98 /min [facility] Body temperature 2022-08-05 22:53:00 35.72 Gabbi [facility] Heart rate 2022-08-05 22:50:00 72 /min [facility] 2022-08-04 15:00:00 43.5 kg [facility] BMI 2022-08-04 15:00:00 17.54 kg/m2 [facility] Body height 2022-07-27 16:36:00 157.5 cm [facility] height 2022-06-25 08:40:00 60 [in_i] Commo n [facility] weight 2022-06-25 08:40:00 97.7 [lb_av] Com [facility] temperature 2022-06-25 08:40:00 97.3 [degF] Com [facility] bmi 2022-06-25 08:40:00 19.08 kg/m2 Comm on [facility] oximetry 2022-06-25 08:40:00 99 % [facility] respiratory rate 2022-06-25 08:40:00 18 /min [facility] blood pressure systolic 2022-06-25 08:40:00 124 mm[Hg] [facility] blood pressure diastolic 2022-06-25 08:40:00 64 mm[Hg] [facility] height 2022-03-25 10:20:00 60 [in_i] [facility]mo [facility] weight 2022-03-25 10:20:00 99.8 [lb_av] Com mon [facility] temperature 2022-03-25 10:20:00 97.7 [degF] Com [facility] bmi 2022-03-25 10:20:00 19.49 kg/m2 Comm on [facility] oximetry 2022-03-25 10:20:00 99 % [facility] respiratory rate 2022-03-25 10:20:00 18 /min [facility] blood pressure systolic 2022-03-25 10:20:00 130 mm[Hg] [facility] blood pressure diastolic 2022-03-25 10:20:00 73 mm[Hg] [facility] height 2021-12-24 10:50:00 60 [in_i] [facility]mo [facility] weight 2021-12-24 10:50:00 101.6 [lb_av] Co mmon [facility] temperature 2021-12-24 10:50:00 97.6 [degF] Com [facility] bmi 2021-12-24 10:50:00 19.84 kg/m2 Comm on [facility] oximetry 2021-12-24 10:50:00 98 % [facility] respiratory rate 2021-12-24 10:50:00 18 /min [facility] blood pressure systolic 2021-12-24 10:50:00 135 mm[Hg] [facility] blood pressure diastolic 2021-12-24 10:50:00 79 mm[Hg] Common [facility] height 2021-11-12 09:20:00 60 [in_i] [facility]mo [facility] weight 2021-11-12 09:20:00 97.8 [lb_av] Com [facility] temperature 2021-11-12 09:20:00 98.2 [degF] Com [facility] bmi 2021-11-12 09:20:00 19.1 kg/m2 [facility] oximetry 2021-11-12 09:20:00 99 % [facility] respiratory rate 2021-11-12 09:20:00 17 /min [facility] blood pressure systolic 2021-11-12 09:20:00 138 mm[Hg] Common [facility] blood pressure diastolic 2021-11-12 09:20:00 76 mm[Hg] Common [facility] height 2021-11-12 09:20:00 60 [in_i] [facility]mo [facility] weight 2021-11-12 09:20:00 97.8 [lb_av] Com [facility] temperature 2021-11-12 09:20:00 98.2 [degF] Com [facility] bmi 2021-11-12 09:20:00 19.1 kg/m2 [facility] oximetry 2021-11-12 09:20:00 99 % [facility] respiratory rate 2021-11-12 09:20:00 17 /min [facility] blood pressure systolic 2021-11-12 09:20:00 138 mm[Hg] [facility] blood pressure diastolic 2021-11-12 09:20:00 76 mm[Hg] Common [facility] height 2021-08-31 10:00:00 60 [in_i] Commo n [facility] weight 2021-08-31 10:00:00 107.2 [lb_av] Co [facility] temperature 2021-08-31 10:00:00 96.2 [degF] Com [facility] bmi 2021-08-31 10:00:00 20.93 kg/m2 Comm on [facility] blood pressure systolic 2021-08-31 10:00:00 115 mm[Hg] [facility] blood pressure diastolic 2021-08-31 10:00:00 63 mm[Hg] [facility] height 2021-04-28 14:10:00 60 [in_i] Commo n [facility] weight 2021-04-28 14:10:00 103.2 [lb_av] Co [facility] temperature 2021-04-28 14:10:00 96.8 [degF] Com [facility] bmi 2021-04-28 14:10:00 20.15 kg/m2 Comm on [facility] oximetry 2021-04-28 14:10:00 96 % Commo [facility] respiratory rate 2021-04-28 14:10:00 18 /min [facility] blood pressure systolic 2021-04-28 14:10:00 120 mm[Hg] [facility] blood pressure diastolic 2021-04-28 14:10:00 62 mm[Hg] [facility] height 2021-04-28 14:00:00 60 [in_i] Commo n [facility] weight 2021-04-28 14:00:00 103.2 [lb_av] Co [facility] temperature 2021-04-28 14:00:00 96.8 [degF] Com [facility] bmi 2021-04-28 14:00:00 20.15 kg/m2 Comm on [facility] oximetry 2021-04-28 14:00:00 96 % [facility] respiratory rate 2021-04-28 14:00:00 18 /min [facility] blood pressure systolic 2021-04-28 14:00:00 120 mm[Hg] [facility] blood pressure diastolic 2021-04-28 14:00:00 62 mm[Hg] [facility] Systolic blood pressure 2019-12-05 17:30:00 170 mm[Hg] [facility] Diastolic blood pressure 2019-12-05 17:30:00 66 mm[Hg] [facility] Heart rate 2019-12-05 17:30:00 64 /min [facility] Respiratory rate 2019-12-05 17:30:00 15 /min [facility] Oxygen saturation in Arterial blood by Pulse oximetry 2019-12-05 17:30:00 97 /min [facility] Body temperature 2019-12-05 17:14:00 36.06 Gabbi [facility] Body height 2019-12-04 13:00:00 149.9 cm [facility] Body weight 2019-12-04 13:00:00 49.896 kg [facility] BMI 2019-12-04 13:00:00 22.22 kg/m2 [facility] Systolic blood pressure 2019-12-05 17:30:00 170 mm[Hg] [facility] Diastolic blood pressure 2019-12-05 17:30:00 66 mm[Hg] [facility] Heart rate 2019-12-05 17:30:00 64 /min [facility] Respiratory rate 2019-12-05 17:30:00 15 /min [facility] Oxygen saturation in Arterial blood by Pulse oximetry 2019-12-05 17:30:00 97 /min [facility] Body temperature 2019-12-05 17:14:00 36.06 Gabbi [facility] Body height 2019-12-04 13:00:00 149.9 cm [facility] Body weight 2019-12-04 13:00:00 49.896 kg [facility] BMI 2019-12-04 13:00:00 22.22 kg/m2 [facility] Respiratory rate 2019-12-05 17:09:00 15 /min [facility] Respiratory rate 2019-12-05 17:09:00 15 /min [facility] Systolic blood pressure 2019-11-21 15:55:00 180 mm[Hg] [facility] Diastolic blood pressure 2019-11-21 15:55:00 69 mm[Hg] [facility] Heart rate 2019-11-21 15:55:00 60 /min [facility] Respiratory rate 2019-11-21 15:55:00 17 /min [facility] Oxygen saturation in Arterial blood by Pulse oximetry 2019-11-21 15:55:00 98 /min [facility] Body temperature 2019-11-21 15:20:00 36.56 Gabbi [facility] Body height 2019-11-21 13:00:00 149.9 cm [facility] Body weight 2019-11-21 13:00:00 49.896 kg [facility] BMI 2019-11-21 13:00:00 22.22 kg/m2 [facility] Systolic blood pressure 2019-11-21 15:55:00 180 mm[Hg] [facility] Diastolic blood pressure 2019-11-21 15:55:00 69 mm[Hg] [facility] Heart rate 2019-11-21 15:55:00 60 /min [facility] Respiratory rate 2019-11-21 15:55:00 17 /min [facility] Oxygen saturation in Arterial blood by Pulse oximetry 2019-11-21 15:55:00 98 /min [facility] Body temperature 2019-11-21 15:20:00 36.56 Gabbi [facility] Body height 2019-11-21 13:00:00 149.9 cm [facility] Body weight 2019-11-21 13:00:00 49.896 kg [facility] BMI 2019-11-21 13:00:00 22.22 kg/m2 [facility] Procedures Procedure Date / Time Performed Performing Clinician Source HOME HEALTH - OTHER 2023-08-25 06:01:00 Doctor U nassigned, [place] [facility] HOME HEALTH - OTHER 2023-04-08 05:01:00 Doctor U nassigned, [place] [facility] HEALTH - OTHER 2023-03-08 05:01:00 Doctor U nassigned, [place] [facility] HOME HEALTH - OTHER 2023-01-27 05:01:00 Doctor U nassigned, [place] [facility] PHYSICIAN ORDERS 2022-12-29 05:01:00 Doctor Unas signed, [place] [facility] PHYSICIAN ORDERS 2022-12-15 05:01:00 Doctor Unas signed, [place] [facility] EXTERNAL PROVIDER RECORDS 2022-11-17 05:01:00 Do ctor Unassigned, [place] [facility] EXTERNAL PROVIDER RECORDS 2022-10-21 05:01:00 Do ctor Unassigned, [place] [facility] HEALTH - OTHER 2022-10-06 05:01:00 Doctor Yi nassigned, [place] [facility] ASSIGNMENT OF BENEFITS 2022-09-23 16:12:32 Docto r Unassigned, [place] [facility] COVID-19 (ID NOW RAPID TESTING) 2022-08-13 16:23:00 Kyle Mcintosh [facility] LAB ONLY COVID INTERPRETATION 2022-08-13 16:23:00 Kyle Mcintosh [facility] BASIC METABOLIC PANEL (NA, K, CL, CO2, GLUCOSE, BUN, CREATININE, CA) 2022-08-13 10:09:00 Sd Brannon [facility] CBC WITH DIFF 2022-08-13 10:09:00 Sd Brannon [facility] BASIC METABOLIC PANEL (NA, K, CL, CO2, GLUCOSE, BUN, CREATININE, CA) 2022-08-12 17:37:00 Gaurav Dan [facility] MAGNESIUM 2022-08-11 11:16:00 Sd Brannon [facility] BASIC METABOLIC PANEL (NA, K, CL, CO2, GLUCOSE, BUN, CREATININE, CA) 2022-08-11 11:16:00 Sd Brannon [facility] CBC WITH DIFF 2022-08-11 11:16:00 Sd Brannon [facility] MAGNESIUM 2022-08-08 09:44:00 Sd Brannon [facility] BASIC METABOLIC PANEL (NA, K, CL, CO2, GLUCOSE, BUN, CREATININE, CA) 2022-08-08 09:44:00 Sd Brannon [facility] CBC WITH DIFF 2022-08-08 09:44:00 Sd Brannon [facility] XR CERVICAL SPINE 2 VW 2022-08-07 02:58:21 Mandi Randhawa [facility] MAGNESIUM 2022-08-06 10:07:00 Salud [facility] BASIC METABOLIC PANEL (NA, K, CL, CO2, GLUCOSE, BUN, CREATININE, CA) 2022-08-06 10:07:00 Sd Brannon [facility] CBC WITH DIFF 2022-08-06 10:07:00 Sd Brannon [facility] MAGNESIUM 2022-08-06 10:07:00 Sd Brannon [facility] BASIC METABOLIC PANEL (NA, K, CL, CO2, GLUCOSE, BUN, CREATININE, CA) 2022-08-06 10:07:00 Salud [facility] CBC WITH DIFF 2022-08-06 10:07:00 Sd Brannon [facility] FL TIME OR (NON-REPORTABLE) 2022-08-05 22:51:31 Mandi Marshall [facility] FL TIME OR (NON-REPORTABLE) 2022-08-05 22:51:31 Mandi Marshall [facility] ABG+COOX+NA+K+GLU+CA2+ 2022-08-05 20:39:00 Triny Batista [facility] ABG+COOX+NA+K+GLU+CA2+ 2022-08-05 20:39:00 Triny Batista [facility] XR CERVICAL SPINE 1 VW 2022-08-05 20:23:27 Mandi Randhawa [facility] FUSION SPINE POSTERIOR CERVICAL AND DISCECTOMY 2022-08-05 18:08:00 Pati Martin [facility] FUSION SPINE POSTERIOR CERVICAL AND DISCECTOMY 2022-08-05 18:08:00 Veronica Pati [facility] HB ECG ROUTINE & RHYTHM STRIP 2022-08-05 13:47:54 Kyle Mcintosh [facility] HB ABO GROUPING 2022-08-05 10:42:00 NiGaurav [facility] HB ABO GROUPING 2022-08-05 10:42:00 Gaurav Dan [facility] BASIC METABOLIC PANEL (NA, K, CL, CO2, GLUCOSE, BUN, CREATININE, CA) 2022-08-05 10:35:00 Gaurav Dan [facility] CBC WITH DIFF 2022-08-05 10:35:[address] [facility] PROTHROMBIN TIME / INR 2022-08-05 10:35:00 Renzo Dan [facility] ACTIVATED PARTIAL THRMPLAS ROYAL 2022-08-05 10:35[facility] (NA, K, CL, CO2, GLUCOSE, BUN, CREATININE, CA) 2022-08-05 10:35:00 Gaurav Dan [facility] CBC WITH DIFF 2022-08-05 10:35:[address] [facility] PROTHROMBIN TIME / INR 2022-08-05 10:35:00 Renzo Dan [facility] ACTIVATED PARTIAL THRMPLAS ROYAL 2022-08-05 10:35:00 Kyle Mcintosh [facility] XR CHEST 1 VW 2022-08-04 20:17:23 [facility] X[facility] CHEST 1 VW 2022-08-04 20:17:23 [facility] MAGNESIUM 2022-08-04 10:41:00 Sd Brannon [facility] BASIC METABOLIC PANEL (NA, K, CL, CO2, GLUCOSE, BUN, CREATININE, CA) 2022-08-04 10:41:00 Sd Brannon [facility] CBC WITH DIFF 2022-08-04 10:41:00 BrannonSd [facility] MAGNESIUM 2022-08-04 10:41:00 Sd Brannon [facility] BASIC METABOLIC PANEL (NA, K, CL, CO2, GLUCOSE, BUN, CREATININE, CA) 2022-08-04 10:41:00 Sd Brannon [facility] CBC WITH DIFF 2022-08-04 10:41:00 Sd Brannon [facility] MAGNESIUM 2022-08-02 09:26:00 Salud Sd Dennis [facility] BASIC METABOLIC PANEL (NA, K, CL, CO2, GLUCOSE, BUN, CREATININE, CA) 2022-08-02 09:26:00 Salud Sd Dennis [facility] CBC WITH DIFF 2022-08-02 09:26:00 Salud Sd Dennis [facility] MAGNESIUM 2022-08-02 09:26:00 Sd Brannon Dennis [facility] BASIC METABOLIC PANEL (NA, K, CL, CO2, GLUCOSE, BUN, CREATININE, CA) 2022-08-02 09:26:00 Salud Sd [facility] CBC WITH DIFF 2022-08-02 09:26:00 Sd Brannon [facility] NM MUGA 2022-07-30 16:08:00 Micky Veliz U [facility] 2022-07-30 16:08:00 Micky Veliz U [facility] TRANSTHORACIC ECHO (TTE) COMPLETE W/ CONTRAST 2022-07-29 19:55:23 Salud Sd Dennis [facility] TRANSTHORACIC ECHO (TTE) COMPLETE W/ CONTRAST 2022-07-29 19:55:23 Sd Brannon [facility] NM MYOCARDIUM PERFUSION STRESS ONLY 2022-07-29 16:50:00 Tressa Suarez [facility] MYOCARDIUM PERFUSION STRESS ONLY 2022-07-29 16:50:00 Tressa Suarez [facility] HB ECG ROUTINE & RHYTHM STRIP 2022-07-29 14:45:19 Micky Veliz [facility] HB ECG ROUTINE & RHYTHM STRIP 2022-07-29 14:45:19 Micky Veliz [facility] ABORH CONFIRMATION (LAB ONLY) 2022-07-29 11:35:00 Sd Brannon [facility] ABORH CONFIRMATION (LAB ONLY) 2022-07-29 11:35:00 Sd Brannon [facility] HB ABO GROUPING 2022-07-29 11:15:00 Sd Brannon [facility] HB ABO GROUPING 2022-07-29 11:15:00 Sd Brannon [facility] MAGNESIUM 2022-07-29 10:10:00 Salud [facility] BASIC METABOLIC PANEL (NA, K, CL, CO2, GLUCOSE, BUN, CREATININE, CA) 2022-07-29 10:10:00 Sd Brannon [facility] CBC WITH DIFF 2022-07-29 10:10:00 Sd Brannon [facility] MAGNESIUM 2022-07-29 10:10:00 Sd Brannon [facility] BASIC METABOLIC PANEL (NA, K, CL, CO2, GLUCOSE, BUN, CREATININE, CA) 2022-07-29 10:10:00 Salud [facility] CBC WITH DIFF 2022-07-29 10:10:00 Salud [facility] CT HEAD WO CONTRAST 2022-07-29 02:51:00 Mandi Marshall [facility] CT HEAD WO CONTRAST 2022-07-29 02:51:00 Mandi Marshall [facility] BASIC METABOLIC PANEL (NA, K, CL, CO2, GLUCOSE, BUN, CREATININE, CA) 2022-07-28 04:55:00 Weston Arreguin [facility] BASIC METABOLIC PANEL (NA, K, CL, CO2, GLUCOSE, BUN, CREATININE, CA) 2022-07-28 04:55:00 Weston Arreguin [facility] PROTHROMBIN TIME / INR 2022-07-28 03:46:00 Param Arreguin am [facility] ACTIVATED PARTIAL THRMPLAS ROYAL 2022-07-28 03:46:00 RodríguezWeston worley [facility] PROTHROMBIN TIME / INR 2022-07-28 03:46:00 Rodríguez, Param am [facility] ACTIVATED PARTIAL THRMPLAS ROYAL 2022-07-28 03:46:00 Weston Arreguin [facility] LIPASE 2022-07-27 23:29:00 [facility]FF 2022-07-27 23:29:00 IbMarlyn gusman F [facility] LIPASE 2022-07-27 23:29:00 IbKamar [facility]mano [facility] WITH DIFF 2022-07-27 23:29:00 Marlyn Cedeno [facility] MR CERVICAL SPINE WO CONTRAST 2022-07-27 21:07:00 Marlyn Cedeno [facility] MR CERVICAL SPINE WO CONTRAST 2022-07-27 21:07:00 Marlyn Cedeno [facility] CT CERVICAL SPINE WO CONTRAST 2022-07-27 17:59:14 Marlyn Cedeno F [facility] CT CERVICAL SPINE WO CONTRAST 2022-07-27 17:59:14 Marlyn Cedeno F [facility] CONSENT/REFUSAL FOR DIAGNOSIS AND TREATMENT 2022-07-27 16:28:45 Doctor Unassigned, [place] [facility] CONSENT/REFUSAL FOR DIAGNOSIS AND TREATMENT 2022-07-27 16:28:45 Doctor Unassigned, [place] [facility] HOSPITAL ADMISSION 2022-07-27 06:01:00 Doctor Un assigned, [place] [facility] HOSPITAL ADMISSION 2022-07-27 06:01:00 Doctor Un assigned, [place] [facility] CONSENT/REFUSAL FOR DIAGNOSIS AND TREATMENT 2019-12-04 13:54:31 Doctor Unassigned, [place] [facility] ASSIGNMENT OF BENEFITS 2019-12-04 13:54:12 Docto r Unassigned, [place] [facility] CBC WITH DIFFERENTIAL 2019-11-16 15:49:00 Yulissa Marte [facility] CONSENT/REFUSAL FOR DIAGNOSIS AND TREATMENT 2019-11-16 15:25:37 Doctor Unassigned, [place] [facility] ASSIGNMENT OF BENEFITS 2019-11-16 15:25:15 Docto r Unassigned, [place] [facility] NOTICE OF BILLING PRACTICES FOR MEDICARE PATIENTS 2019-11-16 15:24:47 Doctor Unassigned, [place] [facility] PATIENT FINANCIAL POLICY 2019-11-16 15:24:28 Doctor Unassigned, [place] [facility] NO SHOW OR MISSED APPOINTMENT POLICY ACKNOWLEDGEMENT 2019-11-16 15:24:05 Doctor Unassigned, [place] [facility] NOTICE OF PRIVACY PRACTICES 2019-11-16 15:23:43 Doctor Unassigned, [place] [facility] CONSENT/REFUSAL FOR DIAGNOSIS AND TREATMENT 2019-11-16 15:23:22 Doctor Unassigned, [place] [facility] ASSIGNMENT OF BENEFITS 2019-11-16 15:22:59 Docto r Unassigned, [place] [facility] Encounters Start Date/Time End Date/Time Encounter Type Admission Type Attending [facility] Facility Care Department Encounter ID Source 2024-09-14 14:51:00 Outpatient Abdalla, Denny STLC STLC [id number] [facility] 2023-10-12 11:47:00 Outpatient Abdalla, Denny STLC STLC [id number] [facility] 2023-08-04 15:30:00 Outpatient Abdalla, Denny STLC STLMLC [id number] [facility] 2023-05-25 11:38:00 Outpatient Abdalla, Denny STLC STLMLC [id number] [facility] 2023-05-04 08:47:00 Outpatient Abdalla, Denny STLMLC STLMLC [id number] [facility] 2023-02-22 08:15:00 Outpatient Abdalla, Denny STLC STLMLC [id number] [facility] 2022-09-30 14:28:00 Outpatient Abdalla, Denny STLC STLMLC [id number] [facility] 2022-07-30 13:18:49 Inpatient R LISA BATISTA, L[facility] [id number] [facility] 2022-06-26 06:48:01 Outpatient Abdalla, Denny STLMLC STLMLC [id number] [facility] 2022-06-23 08:53:00 Outpatient Abdalla, Denny STLMLC STLMLC [id number] [facility] 2022-03-26 08:26:00 Outpatient Abdalla, Denny STLMLC STLMLC [id number] [facility] 2022-03-25 10:11:00 Outpatient Abdalla, Denny STLMLC STLMLC [id number] [facility] 2022-03-24 10:15:07 Outpatient Abdalla, Denny STLMLC STLMLC [id number] [facility] 2022-01-25 13:50:00 Outpatient Abdalla, Denny STLMLC STLMLC [id number] [facility] 2021-12-25 07:27:00 Outpatient Abdalla, Denny STLMLC STLMLC [id number] [facility] 2021-11-13 08:45:02 Outpatient Abdalla, Denny STLMLC STLMLC [id number] [facility] 2021-11-09 13:41:00 Outpatient Abdalla, Denny STLMLC STLMLC [id number] [facility] 2021-09-29 15:38:00 Outpatient Abdalla, Denny STLMLC STLMLC [id number] [facility] 2021-08-12 14:21:27 Outpatient Abdalla, Denny STLMLC STLMLC [id number] [facility] 2021-08-12 14:00:42 Outpatient Abdalla, Denny STLMLC STLMLC [id number] [facility] 2021-08-12 13:24:30 Outpatient Abdalla, Denny STLMLC STLMLC [id number] [facility] 2021-08-12 12:41:17 Outpatient Abdalla, Denny STLMLC STLMLC [id number] [facility] 2021-08-12 11:53:12 Outpatient Abdalla, Denny STLMLC STLMLC [id number] [facility] 2021-08-12 11:50:53 Outpatient Abdalla, Denny STLMLC STLMLC [id number] [facility] 2021-08-12 11:29:14 Outpatient Abdalla, Denny STLMLC STLMLC [id number] [facility] 2021-08-12 11:27:37 Outpatient Abdalla, Denny STLMLC STLMLC [id number] [facility] 2021-08-12 11:18:10 Outpatient Abdalla, Denny STLMLC STLMLC [id number] [facility] 2021-08-12 11:03:30 Outpatient Abdalla, Denny STLMLC STLMLC [id number] [facility] 2021-08-12 11:02:51 Outpatient LongAriane STLMLC STLMLC [id number] [facility] 2021-05-14 21:11:39 Outpatient GREYSON MARTE [facility] [id number] [facility] 2021-05-14 19:37:31 Outpatient GREYSON GUZMAN [facility] AYESHA [id number] [facility] 2025-02-08 00:00:00 2025-02-08 00:00:00 (TEL) STLMLC STLMLC [id number] [facility] 2025-01-25 00:00:00 2025-01-25 00:00:00 (TEL) STLMLC STLMLC [id number] [facility] 2024-12-13 00:00:00 2024-12-13 00:00:00 (TEL) STLMLC STLMLC [id number] [facility] 2024-12-11 00:00:00 2024-12-11 00:00:00 OFFICE VISIT ESTAB PT LEVEL 4 STLMLC STLMLC [id number] [facility] 2024-12-01 00:00:00 2024-12-01 00:00:00 (TEL) STLMLC STLMLC [id number] [facility] 2024-11-29 00:00:00 2024-11-29 00:00:00 (TEL) STLMLC STLMLC [id number] [facility] 2024-11-29 00:00:00 2024-11-29 00:00:00 (TEL) STLMLC STLMLC [id number] [facility] 2024-11-27 00:00:00 2024-11-27 00:00:00 OFFICE VISIT ESTAB PT LEVEL 4 STLMLC STLMLC [id number] [facility] 2024-11-20 00:00:00 2024-11-20 00:00:00 (TEL) STLMLC STLMLC [id number] [facility] 2024-11-12 00:00:00 2024-11-12 00:00:00 (TEL) STLMLC STLMLC [id number] [facility] 2024-09-14 00:00:00 2024-09-14 00:00:00 (TEL) STLMLC STLMLC [id number] [facility] 2024-03-05 00:00:00 2024-05-01 13:54:01 Telephone Pati Martin [facility] MEDICAL OFFICE BUILDING 1.2.840.114 350.1.13.10 4.2.7.2.686 [id number] [facility] 2023-10-14 00:00:2023-10-14 00:00:00 (TEL) STLMLC STLMLC [id number] [facility] 2023-10-13 00:00:00 2023-10-13 00:00:00 OFFICE VISIT ESTAB PT LEVEL 4 STLMLC STLMLC [id number] [facility] 2023-08-25 00:00:00 2023-08-25 00:00:00 Orders Only Doctor Unassigned, [place] [facility] 1.2.840.114 350.1.13.10 4.2.7.2.686 [id number] [facility] 2023-08-01 00:00:00 2023-08-01 00:00:00 (TEL) STLMLC STLMLC [id number] [facility] 2023-07-25 00:00:00 2023-07-25 00:00:00 (TEL) STLMLC STLMLC [id number] [facility] 2023-07-22 00:00:00 2023-07-22 00:00:00 (TEL) STLMLC STLMLC [id number] [facility] 2023-05-27 00:00:00 2023-05-27 00:00:00 (TEL) STLMLC STLMLC [id number] [facility] 2023-05-25 00:00:00 2023-05-25 00:00:00 OFFICE VISIT ESTAB PT LEVEL 4 STLMLC STLMLC [id number] [facility] 2023-05-04 00:00:00 2023-05-04 00:00:00 (TEL) STLMLC STLMLC [id number] [facility] 2023-04-08 00:00:00 2023-04-08 00:00:00 Orders Only Doctor Unassigned, [place] [facility] 1.2.840.114 350.1.13.10 4.2.7.2.686 [id number] [facility] 2023-04-06 00:00:00 2023-04-06 00:00:00 (TEL) [facility] [id number] [facility] 2023-03-08 00:00:00 2023-03-08 00:00:00 Telephone Pati Martin [facility] OFFICE BUILDING 1..840.114 350.1.13.10 4.2.7.2.686 [id number] [facility] 2023-03-08 00:00:00 2023-03-08 00:00:00 Orders Only Doctor Unassigned, [place] [facility] 1..840.114 350.1.13.10 4.2.7.2.686 [id number] [facility] 2023-02-22 08:40:00 2023-02-22 08:40:00 Outpatient PATI MOELLER PATRICK [facility] [id number] [facility] 2023-02-21 00:00:00 2023-02-21 00:00:00 Outpatient Jane SAUNDERS SHERIDAN [facility] [id number] [facility] 2023-02-14 00:00:00 2023-02-14 00:00:00 (TEL) [facility] [id number] [facility] 2023-02-08 10:00:00 2023-02-08 10:00:00 [id number] 2023-01-27 00:00:00 2023-01-27 00:00:00 Orders Only Doctor Unassigned, [place] [facility] 1..840.114 350.1.13.10 4.2.7.2.686 [id number] [facility] 2023-01-24 00:00:00 2023-01-24 00:00:00 Outpatient Jane SAUNDERS SHERIDAN [facility] [id number] [facility] 2023-01-06 00:00:00 2023-01-06 00:00:00 Outpatient SHERIDAN GALICIA [facility] [id number] [facility] 2023-01-04 10:40:00 2023-01-04 10:40:00 Outpatient Jane VERONICA PATI PATI MARTIN [facility] [id number] [facility] 2022-12-29 00:00:00 2022-12-29 00:00:00 Orders Only Doctor Unassigned, [place] [facility] 1.2840.114 350.1.13.10 4.2.7.2.686 [id number] [facility] 2022-12-24 00:00:00 2022-12-24 00:00:00 Outpatient SHERIDAN GALICIA [facility] [id number] [facility] 2022-12-15 00:00:00 2022-12-15 00:00:00 Orders Only Doctor Unassigned, [place] [facility] 1.2840.114 350.1.13.10 4.2.7.2.686 [id number] [facility] 2022-11-18 00:00:00 2022-11-18 00:00:00 Telephone VeronicaPati tee [facility] MEDICAL OFFICE BUILDING 1.2840.114 350.1.13.10 4.2.7.2.686 [id number] [facility] 2022-11-17 00:00:00 2022-11-17 00:00:00 Orders Only Doctor Unassigned, [place] [facility] 1.2840.114 350.1.13.10 4.2.7.2.686 [id number] [facility] 2022-10-21 00:00:00 2022-10-21 00:00:00 Orders Only Doctor Unassigned, [place] [facility] 1.2840.114 350.1.13.10 4.2.7.2.686 [id number] [facility] 2022-10-12 00:00:00 2022-10-12 00:00:00 Telephone Veronica [facility] MEDICAL OFFICE BUILDING 1.2.840.114 350.1.13.10 4.2.7.2.686 [id number] [facility] 2022-10-06 00:00:00 2022-10-06 00:00:00 Orders Only Doctor Unassigned, [place] [facility] 1.2840.114 350.1.13.10 4.2.7.2.686 [id number] [facility] 2022-09-29 00:00:00 2022-09-29 00:00:00 Outpatient SHERIDAN GALICIA [facility] [id number] [facility] 2022-09-23 11:40:00 2022-09-23 23:59:00 Outpatient Jane SAUNDERS SHERIDAN [facility] [id number] [facility] 2022-09-23 11:40:00 2022-09-23 23:59:00 Hospital Encounter Sheridan Saunders [facility] 1.2.840.114 350.1.13.10 4.2.7.2.686 [id number] [facility] 2022-09-23 10:40:00 2022-09-23 11:00:00 [facility] 1.2840.114 350.1.13.10 4.2.7.2.686 [id number] [facility] 2022-09-23 00:00:00 2022-09-23 00:00:00 Orders Only Doctor Unassigned, [place] [facility] 1.2.840.114 350.1.13.10 4.2.7.2.686 [id number] [facility] 2022-09-17 00:00:00 2022-09-17 00:00:00 Telephone Pati Martin [facility] MEDICAL OFFICE BUILDING 1.2.840.114 350.1.13.10 4.2.7.2.686 [id number] [facility] 2022-09-09 00:00:00 2022-09-09 00:00:00 [facility]TEL) [id number] 2022-09-09 00:00:00 2022-09-09 00:00:00 Patient Outreach Elizabet Ruiz [facility] MEDICAL OFFICE BUILDING 1.2.840.114 350.1.13.10 4.2.7.2.686 [id number] [facility] 2022-09-09 00:00:00 2022-09-09 00:00:00 Patient Outreach Elizabet Ruiz [facility] 1.2.840.114 350.1.13.10 4.2.7.2.686 [id number] [facility] 2022-09-09 00:00:00 2022-09-09 00:00:00 Telephone Pati Martin [facility] MEDICAL OFFICE BUILDING 1.2.840.114 350.1.13.10 4.2.7.2.686 [id number] [facility] 2022-09-09 00:00:00 2022-09-09 00:00:00 Telephone Veronica Pati [facility] MEDICAL OFFICE BUILDING 1.2.840.114 350.1.13.10 4.2.7.2.686 [id number] [facility] 2022-09-06 00:00:00 2022-09-06 00:00:00 Telephone Veronica [facility] MEDICAL OFFICE BUILDING 1.2.840.114 350.1.13.10 4.2.7.2.686 [id number] [facility] 2022-09-03 15:30:00 2022-09-03 15:30:00 Outpatient R PATI MARTIN PATRICK [facility] [id number] [facility] 2022-08-20 00:00:00 2022-08-20 00:00:00 (TEL) STLMLC STLMLC [id number] [facility] 2022-07-27 10:38:00 2022-08-13 17:54:00 Outpatient X PATI MARTIN [facility] [id number] [facility] 2022-07-27 10:38:00 2022-08-13 17:54:00 Emergency Wilian, Marlyn Charles[facility] 1..840.114 350.1.13.10 4.2.7.2.686 [id number] [facility] 2022-08-13 14:15:00 2022-08-13 14:15:00 Ambulatory Pre-Reg [facility] [place] [id number] Juniorkajal yusuf Juice 2022-08-13 00:00:00 2022-08-13 00:00:00 Telephone [facility] 1..840.114 350.1.13.10 4.2.7.2.686 [id number] [facility] 2022-08-05 12:00:00 2022-08-05 17:00:00 Surgery [facility] 1..840.114 350.1.13.10 4.2.7.2.686 [id number] [facility] 2022-08-03 21:45:00 2022-08-03 21:45:00 Ambulatory [facility]Reg [facility] [place] [id number] [facility] 2022-07-27 14:15:00 2022-07-28 05:59:59 Outpatient [facility] [place] [id number] Yari Lunaann 2022-07-21 00:00:00 2022-07-21 00:00:00 (TEL) STLMLC STLMLC [id number] [facility] 2022-07-16 14:15:00 2022-07-16 14:15:00 Ambulatory Pre-Reg [facility] [place] [id number] [facility] 2022-07-07 00:00:00 2022-07-07 00:00:00 (TEL) STLMLC STLMLC [id number] [facility] 2022-06-25 00:00:00 2022-06-25 00:00:00 OFFICE VISIT ESTAB PT LEVEL 4 STLMLC STLMLC [id number] [facility] 2022-06-23 00:00:00 2022-06-23 00:00:00 (TEL) STLMLC STLMLC [id number] [facility] 2022-03-25 00:00:00 2022-03-25 00:00:00 OFFICE VISIT ESTAB PT LEVEL 4 STLMLC STLMLC [id number] [facility] 2021-12-24 00:00:00 2021-12-24 00:00:00 OFFICE VISIT ESTAB PT LEVEL 4 STLMLC STLMLC [id number] [facility] 2021-11-12 00:00:00 2021-11-12 00:00:00 OFFICE VISIT EST PT LEVEL 3 STLMLC STLMLC [id number] [facility] 2021-11-12 00:00:00 2021-11-12 00:00:00 SUB ANNUAL [facility]LLNESS VISIT STLMLC STLMLC [id number] [facility] 2021-09-29 00:00:00 2021-09-29 00:00:00 (TEL) STLMLC STLMLC [id number] [facility] 2021-09-25 00:00:00 2021-09-25 00:00:00 (TEL) STLMLC STLMLC [id number] [facility] 2021-09-11 00:00:00 2021-09-11 00:00:00 (TEL) STLMLC STLMLC [id number] [facility] 2021-09-02 00:00:00 2021-09-02 00:00:00 (TEL) STLMLC STLMLC [id number] [facility] 2021-08-31 00:00:00 2021-08-31 00:00:00 OFFICE VISIT EST PT LEVEL 3 STLMLC STLMLC [id number] [facility] 2021-04-28 00:00:00 2021-04-28 00:00:00 (TEL) STLMLC STLMLC [id number] [facility] 2021-04-28 00:00:00 2021-04-28 00:00:00 OFFICE VISIT ESTAB PT LEVEL 4 STLMLC STLMLC [id number] [facility] 2021-04-28 00:00:00 2021-04-28 00:00:00 (TEL) STLMLC STLMLC [id number] [facility] 2021-04-28 00:00:00 2021-04-28 00:00:00 SUB ANNUAL [facility] VISIT STLMLC STLMLC [id number] [facility] 2021-01-26 00:00:00 2021-01-26 00:00:00 Outpatient STLMLC STLMLC [id number] [facility] 2021-01-13 00:00:00 2021-01-13 00:00:00 Outpatient STLMLC STLMLC [id number] [facility] 2020-10-27 00:00:00 2020-10-27 00:00:00 Outpatient STLMLC STLMLC [id number] [facility] 2020-10-02 00:00:00 2020-10-02 00:00:00 Outpatient STLMLC STLMLC [id number] [facility] 2020-09-30 00:00:00 2020-09-30 00:00:00 Outpatient STLMLC STLMLC [id number] [facility] 2020-09-28 00:00:00 2020-09-28 00:00:00 Outpatient STLMLC STLMLC [id number] [facility] 2020-07-30 00:00:00 2020-07-30 00:00:00 Outpatient STLMLC STLMLC [id number] [facility] 2020-07-28 00:00:00 2020-07-28 00:00:00 Outpatient STLMLC STLMLC [id number] [facility] 2020-05-06 00:00:00 2020-05-06 00:00:00 Outpatient STLMLC STLMLC [id number] [facility] 2020-04-24 00:00:00 2020-04-24 00:00:00 Outpatient STLMLC STLMLC [id number] [facility] 2020-04-24 00:00:00 2020-04-24 00:00:00 Outpatient STLMLC STLMLC [id number] [facility] 2020-04-17 00:00:00 2020-04-17 00:00:00 Outpatient STLMLC STLMLC [id number] [facility] 2020-01-16 08:45:00 2020-01-16 08:45:00 [facility] [id number] [facility] 2019-12-05 10:22:39 2019-12-05 13:03:00 Hospital Encounter Estuardo Greyson Wis[facility] 1.2.840.114 350.1.13.10 4.2.7.2.686 [id number] 2019-12-05 10:22:39 2019-12-05 13:03:00 Hospital Encounter Estuardo Greyson Wisdom [facility] [place] 1.2.840.114 350.1.13.10 4.2.7.2.686 [id number] [id number] [facility] 2019-12-05 11:44:00 2019-12-05 12:10:00 Anesthesia Nidia Nolasco David K [facility] [place] 1.2.840.114 350.1.13.10 4.2.7.2.686 [id number] [id number] 2019-12-05 11:44:00 2019-12-05 12:10:00 Anesthesia Nidia Nolasco David K [facility] 1.2.840.114 350.1.13.10 4.2.7.2.686 [id number] 020 [id number] [facility] 2019-12-04 08:03:07 2019-12-04 08:18:07 Laboratory Only Only, Adc Test [facility] nal Building 1.2.840.114 350.1.13.10 4.2.7.2.686 [id number] 2019-12-04 08:03:07 2019-12-04 08:18:07 Laboratory Only Only, Adc Test Greyson Marte [facility] Building 1.2.840.114 350.1.13.10 4.2.7.2.686 [id number] [facility] 2019-12-04 08:15:00 2019-12-04 08:15:00 Outpatient R GREYSON MARTE [facility] [id number] [facility] 2019-11-21 07:48:00 2019-11-21 11:30:00 Hospital Encounter Greyson Marte [facility] [place] 1.2.840.114 350.1.13.10 4.2.7.2.686 [id number] [id number] 2019-11-21 07:48:00 2019-11-21 11:30:00 Hospital Encounter Greyson Marte [facility] [place] 1.2.840.114 350.1.13.10 4.2.7.2.686 [id number] [facility] 2019-11-20 09:30:00 2019-11-20 09:30:00 Outpatient R [facility] [id number] [facility] 2019-11-20 08:56:58 2019-11-20 09:07:43 Laboratory Only Nurse, [facility] Building 1.2.840.114 350.1.13.10 4.2.7.2.686 [id number] 2019-11-20 08:56:58 2019-11-20 09:07:43 Laboratory Only Nurse, [facility] General Surgery Greyson Marte [facility] Building 1.2.840.114 350.1.13.10 4.2.7.2.686 [id number] [facility] 2019-11-20 00:00:00 2019-11-20 00:00:00 Telephone Greyson Marte [facility] [place] 1.2.840.114 350.1.13.10 4.2.7.2.686 [id number] 020 [id number] 2019-11-20 00:00:00 2019-11-20 00:00:00 Telephone Greyson Marte [facility] 1.2.840.114 350.1.13.10 4.2.7.2.686 [id number] 020 [id number] [facility] 2019-11-16 10:33:59 2019-11-16 10:48:59 Performance Test Consultant Visit Pob, [facility] Lab Main Greyson Marte [facility] Building 1.2.840.114 350.1.13.10 4.2.7.2.686 [id number] [facility] 2019-11-16 10:45:00 2019-11-16 10:45:00 Outpatient R GREYSON MARTE [facility] [id number] [facility] 2019-11-12 15:30:00 2019-11-12 15:30:00 Outpatient [facility] [id number] [facility] 2019-08-20 14:48:00 2019-08-20 14:48:00 Outpatient [facility] [id number] [facility] 2019-08-13 15:30:00 2019-08-13 15:30:00 Outpatient [facility] [id number] [facility] Results Test Description Test Time Test Comments Results Result Co mments Source [facility] METABOLIC PANEL (NA, K, CL, CO2, GLUCOSE, BUN, CREATININE, CA)2022-08-11 11:57:57* Test Item Value Reference Range Interpretation Comme nts NA (test code = 4411101804) 128 mmol/L 135-145 L K (test code = 0998901190) 3.4 mmol/L 3.5-5.0 L CL (test code = 7595728946) 91 mmol/L 98-108 L CO2 TOTAL (test code = 1029632189) 31 mmol/L 23-31 AGAP (test code = 1263309636) 2-16 BUN (test code = 4075426368) 10 mg/dL 7-23 GLUCOSE (test code = 6618408180) 92 mg/dL 70-110 CREATININE (test code = 7680270467) 0.55 mg/dL 0.50-1.04 CALCIUM (test code = 8270106569) 8.7 mg/dL 8.6-10.6 eGFR (test code = 8036463838) mL/min/1.73m2 MIKEY (test code = MIKEY) Association [...] imaging tests). Lab Interpretation (test code = 44023-4) Abnormal [facility]2023-01-25 11:57:57* Test Item Value Reference Range Interpretation Comme nts MAGNESIUM (test code = 3259354784) 1.7 mg/dL 1.7-2.4 Lab Interpretation (test cod e = 08874-3) Normal [facility]2023-01-20 10:48:57* Test Item Value Reference Range Interpretation Comme nts MAGNESIUM (test code = 4988764052) 1.6 mg/dL 1.7-2.4 L Lab Interpretation (test cod e = 52936-5) [facility] (NA, K, CL, CO2, GLUCOSE, BUN, CREATININE, CA)2022-08-06 10:48:57* Test Item Value Reference Range Interpretation Comme nts NA (test code = 2622862584) 134 mmol/L 135-145 L K (test code = 3094684084) 4.6 mmol/L 3.5-5.0 CL (test code = 4632580420) 99 mmol/L 98-108 CO2 TOTAL (test code = 1949009434) 26 mmol/L 23-31 AGAP (test code = 8743623928) 2-16 BUN (test code = 7572810985) 24 mg/dL 7-23 H GLUCOSE (test code = 7869667337) 131 mg/dL 70-110 H CREATININE (test code = 3089773720) 0.78 mg/dL 0.50-1.04 CALCIUM (test code = 2641831888) 9.4 mg/dL 8.6-10.6 eGFR (test code = 9092052538) mL/min/1.73m2 MIKEY (test code = MIKEY) Association [...] imaging tests). Lab Interpretation (test code = 96113-8) [facility] 10:48:57* Test Item Value Reference Range Interpretation Comme nts MAGNESIUM (test code = 8143535933) 1.6 mg/dL 1.7-2.4 L Lab Interpretation (test cod e = 96894-1) [facility] (NA, K, CL, CO2, GLUCOSE, BUN, CREATININE, CA)2022-08-06 10:48:57* Test Item Value Reference Range Interpretation Comme nts NA (test code = 4819876545) 134 mmol/L 135-145 L K (test code = 5320676402) 4.6 mmol/L 3.5-5.0 CL (test code = 3272159979) 99 mmol/L 98-108 CO2 TOTAL (test code = 5714160964) 26 mmol/L 23-31 AGAP (test code = 8270657894) 2-16 BUN (test code = 8840950857) 24 mg/dL 7-23 H GLUCOSE (test code = 1318341255) 131 mg/dL 70-110 H CREATININE (test code = 3649238166) 0.78 mg/dL 0.50-1.04 CALCIUM (test code = 5414607525) 9.4 mg/dL 8.6-10.6 eGFR (test code = 2520726959) mL/min/1.73m2 MIKEY (test code = MIKEY) Association [...] imaging tests). Lab Interpretation (test code = 55683-4) Abnormal [facility] WITH [id number] 10:27:50* Test Item Value Reference Range Interpretation [...] 33.2 g/dL 31.6-35.1 RDW-SD (test code = 19534-9) 45.0 fL 39.0-49.9 RDW-CV (test code = 788-0) 13.2 % 12.0-15.5 PLT (test code = 777-3) See_Comment [Automated message] The system which generated this result transmitted reference range: 166 - 358 10*3/?L. The reference range was not used to interpret this result as normal/abnormal. MPV (test code = 06116-9) 11.8 fL 9.5-12.9 NRBC/100 WBC (test code = 7154206145) See_Comment [Automated message] The system which generated this result transmitted reference range: 0.0 - 10.0 /100 WBCs. The reference range was not used to interpret this result as normal/abnormal. NRBC x10^3 (test code = 4594976180) See_Comment [Automated message] The system which generated this result transmitted reference range: 10*3/?L. The reference range was not used to interpret this result as normal/abnormal. GRAN MAT (NEUT) % (test code = 770-8) 85.6 % IMM GRAN % (test code = 2003223057) 0.60 % LYMPH % (test code = 736-9) 7.2 % MONO % (test code = 5905-5) 6.4 % EOS % (test code = 713-8) 0.0 % BASO % (test code = 706-2) 0.2 % GRAN MAT x10^3(ANC) (test code = 2611057771) 10.66 10*3/uL 1.88-7.09 H IMM GRAN x10^3 (test code = 7659300582) 0.07 10*3/uL 0.00-0.06 H LYMPH x10^3 (test code = 731-0) 0.90 10*3/uL 1.32-3.29 L MONO x10^3 (test code = 742-7) 0.79 10*3/uL 0.33-0.92 EOS x10^3 (test code = 711-2) 0.03-0.39 L BASO x10^3 (test code = 704-7) 0.01-0.07 Lab Interpretation (test code = 83865-9) Abnormal [facility] WITH [id number] 10:27:50* Test Item Value Reference Range Interpretation [...] 33.2 g/dL 31.6-35.1 RDW-SD (test code = 19903-1) 45.0 fL 39.0-49.9 RDW-CV (test code = 788-0) 13.2 % 12.0-15.5 PLT (test code = 777-3) See_Comment [Automated message] The system which generated this result transmitted reference range: 166 - 358 10*3/?L. The reference range was not used to interpret this result as normal/abnormal. MPV (test code = 92844-0) 11.8 fL 9.5-12.9 NRBC/100 WBC (test code = 5255611973) See_Comment [Automated message] The system which generated this result transmitted reference range: 0.0 - 10.0 /100 WBCs. The reference range was not used to interpret this result as normal/abnormal. NRBC x10^3 (test code = 5828053035) See_Comment [Automated message] The system which generated this result transmitted reference range: 10*3/?L. The reference range was not used to interpret this result as normal/abnormal. GRAN MAT (NEUT) % (test code = 770-8) 85.6 % IMM GRAN % (test code = 0568685146) 0.60 % LYMPH % (test code = 736-9) 7.2 % MONO % (test code = 5905-5) 6.4 % EOS % (test code = 713-8) 0.0 % BASO % (test code = 706-2) 0.2 % GRAN MAT x10^3(ANC) (test code = 0780248618) 10.66 10*3/uL 1.88-7.09 H IMM GRAN x10^3 (test code = 8057609899) 0.07 10*3/uL 0.00-0.06 H LYMPH x10^3 (test code = 731-0) 0.90 10*3/uL 1.32-3.29 L MONO x10^3 (test code = 742-7) 0.79 10*3/uL 0.33-0.92 EOS x10^3 (test code = 711-2) 0.03-0.39 L BASO x10^3 (test code = 704-7) 0.01-0.07 Lab Interpretation (test code = 98599-1) Abnormal [facility]+COOX+NA+K+GLU+CA2+2022-08-06 05:11:56* Test Item Value Reference Range Interpretation Comme nts PH (test code = 2) 7.35-7.45 L PCO2 (test code = 3375979485) See_Comment [Automated messa ge] The system which generated this result transmitted reference range: 35 - 45 mmHg. The reference range was not used to interpret this result as normal/abnormal. PO2 (test code = 9297472441) See_Comment H [Automated messa ge] The system which generated this result transmitted reference range: 80 - 100 mmHg. The reference range was not used to interpret this result as normal/abnormal. HCO3 (test code = 2605846557) See_Comment L [Automated messa ge] The system which generated this result transmitted reference range: 22 - 26 mEq/L. The reference range was not used to interpret this result as normal/abnormal. BE (test code = 8338303646) See_Comment L [Automated messa ge] The system which generated this result transmitted reference range: -3.0 - 3.0 mEq/L. The reference range was not used to interpret this result as normal/abnormal. THB (test code = 5798375777) 12.0 g/dL 12.0-16.0 %O2HB (test code = 8821654687) 98.7 % 94.0-99.0 %COHB ART (test code = 1021543373) 0.6 % 0.0-1.5 %METHB ART (test code = 4654568754) 0.3 % 0.4-1.5 L VOL%O2 ART (test code = 0614724103) 17.4 % 15.0-23.0 QUES NA (test code = 1907756435) 132 mmol/L 135-145 L K+ (test code = 9128635776) 3.6 mmol/L 3.5-5.0 AC CA IONZ (test code = 7159493096) 5.30 mg/dL 4.50-5.30 GLUCOSE (test code = 8399736232) 107 mg/dL 70-110 Lab Interpretation (test code = 08633-8) Abnormal [facility]+COOX+NA+K+GLU+CA2+2022-08-06 05:11:56* Test Item Value Reference Range Interpretation Comme nts PH (test code = 2) 7.35-7.45 L PCO2 (test code = 4584374642) See_Comment [Automated messa ge] The system which generated this result transmitted reference range: 35 - 45 mmHg. The reference range was not used to interpret this result as normal/abnormal. PO2 (test code = 8532621345) See_Comment H [Automated messa ge] The system which generated this result transmitted reference range: 80 - 100 mmHg. The reference range was not used to interpret this result as normal/abnormal. HCO3 (test code = 3581100852) See_Comment L [Automated messa ge] The system which generated this result transmitted reference range: 22 - 26 mEq/L. The reference range was not used to interpret this result as normal/abnormal. BE (test code = 6348412827) See_Comment L [Automated messa ge] The system which generated this result transmitted reference range: -3.0 - 3.0 mEq/L. The reference range was not used to interpret this result as normal/abnormal. THB (test code = 7722254455) 12.0 g/dL 12.0-16.0 %O2HB (test code = 0173648310) 98.7 % 94.0-99.0 %COHB ART (test code = 8516933559) 0.6 % 0.0-1.5 %METHB ART (test code = 9503574058) 0.3 % 0.4-1.5 L VOL%O2 ART (test code = 0903072369) 17.4 % 15.0-23.0 QUES NA (test code = 3248436609) 132 mmol/L 135-145 L K+ (test code = 4869250640) 3.6 mmol/L 3.5-5.0 AC CA IONZ (test code = 3969584979) 5.30 mg/dL 4.50-5.30 GLUCOSE (test code = 3238230601) 107 mg/dL 70-110 Lab Interpretation (test code = 15573-4) [facility]normal [facility] [id number] 11:28:31* Test Item Value Reference Range Interpretation Comme nts ABO & RH (test code = 20) O POSITIVE Performed at [facility] Laboratory Services [place] [address]Toll Free: [phone] No. [id number] IAT (test code = 1185) Negative Performed at [facility] Laboratory [address] Free: [phone] No. [id number] [facility]CE [id number] 11:28:31* Test Item Value Reference Range Interpretation Comme nts ABO & RH (test code = 20) O POSITIVE Performed at [facility] Laboratory [facility] - [address] Free: [phone] No. [id number] IAT (test code = 1185) Negative Performed at [facility] Laboratory [address] Free: [phone] No. [id number] [facility] (NA, K, CL, CO2, GLUCOSE, BUN, CREATININE, CA)2022-08-05 11:17:44* Test Item Value Reference Range Interpretation Comme nts NA (test code = 0519823859) 133 mmol/L 135-145 L K (test code = 4222132855) 4.5 mmol/L 3.5-5.0 Slight hemolysis CL (test code = 9425720639) 101 mmol/L 98-108 CO2 TOTAL (test code = 4291756958) 28 mmol/L 23-31 AGAP (test code = 8220027064) 2-16 BUN (test code = 5285726117) 26 mg/dL 7-23 H Slight hemolysis GLUCOSE (test code = 5905162902) 94 mg/dL 70-110 CREATININE (test code = 3208886522) 0.81 mg/dL 0.50-1.04 CALCIUM (test code = 0073327973) 9.2 mg/dL 8.6-10.6 eGFR (test code = 9682715079) mL/min/1.73m2 MIKEY (test code = MIKEY) Association [...] imaging tests). Lab Interpretation (test code = 51283-1) Abnormal [facility] METABOLIC PANEL (NA, K, CL, CO2, GLUCOSE, BUN, CREATININE, CA)2022-08-05 11:17:44* Test Item Value Reference Range Interpretation Comme nts NA (test code = 9184459768) 133 mmol/L 135-145 L K (test code = 9961296248) 4.5 mmol/L 3.5-5.0 Slight hemolysis CL (test code = 9381201992) 101 mmol/L 98-108 CO2 TOTAL (test code = 7492836695) 28 mmol/L 23-31 AGAP (test code = 5975219061) 2-16 BUN (test code = 0020869413) 26 mg/dL 7-23 H Slight hemolysis GLUCOSE (test code = 6742275636) 94 mg/dL 70-110 CREATININE (test code = 1639323790) 0.81 mg/dL 0.50-1.04 CALCIUM (test code = 6173069867) 9.2 mg/dL 8.6-10.6 eGFR (test code = 5222239069) mL/min/1.73m2 MIKEY (test code = MIKEY) Association [...] imaging tests). Lab Interpretation (test code = 81902-5) Abnormal [facility] Center[facility] Time / [id number] 11:00:23* Test Item Value Reference Range Interpretation Comme janeth MARTIN PATIENT (test code = 5964-2) See_Comment [Automated PaperShare] The system which generated this result transmitted reference range: 10.1 - 12.6 Seconds. The reference range was not used to interpret this result as normal/abnormal. INR (test code = 6301-6) Normal INR <1.1; Warfarin Therapeutic range 2.0 to 3.0 or 2.5 to 3.5, depending upon the indications. Lab Interpretation (test code = 81491-9) Normal [facility] THRMPLAS [id number] 11:00:23* Test Item Value Reference Range Interpretation Comme nts APTT Patient (test code = 3173-2) See_Comment [Automated messa ge] The system which generated this result transmitted reference range: 26 - 36 Seconds. The reference range was not used to interpret this result as normal/abnormal. Lab Interpretation (test code = 22644-6) Normal [facility] Center[facility] Time / [id number] 11:00:23* Test Item Value Reference Range Interpretation Comme [facility] PROTIME PATIENT (test code = 5964-2) See_Comment [Automated messa ge] The system which generated this result transmitted reference range: 10.1 - 12.6 Seconds. The reference range was not used to interpret this result as normal/abnormal. INR (test code = 6301-6) Normal INR <1.1; Warfarin Therapeutic range 2.0 to 3.0 or 2.5 to 3.5, depending upon the indications. Lab Interpretation (test code = 55721-1) Normal [facility] THRM[facility] [id number] 11:00:23* Test Item Value Reference Range Interpretation Comme nts APTT Patient (test code = 3173-2) See_Comment [Automated messa ge] The system which generated this result transmitted reference range: 26 - 36 Seconds. The reference range was not used to interpret this result as normal/abnormal. Lab Interpretation (test code = 38278-4) Normal [facility] CenterCBC WITH [id number] 10:54:04* Test Item Value Reference Range Interpretation Comme [facility] WBC (test code = 6690-2) See_Comment [Automated [...] 33.9 g/dL 31.6-35.1 RDW-SD (test code = 73934-7) 46.5 fL 39.0-49.9 RDW-CV (test code = 788-0) 13.7 % 12.0-15.5 PLT (test code = 777-3) See_Comment [Automated messa ge] The system which generated this result transmitted reference range: 166 - 358 10*3/?L. The reference range was not used to interpret this result as normal/abnormal. MPV (test code = 74274-5) 12.1 fL 9.5-12.9 NRBC/100 WBC (test code = 8254843420) See_Comment [Automated Sensinode ssage] The system which generated this result transmitted reference range: 0.0 - 10.0 /100 WBCs. The reference range was not used to interpret this result as normal/abnormal. NRBC x10^3 (test code = 8630647229) See_Comment [Automated messa ge] The system which generated this result transmitted reference range: 10*3/?L. The reference range was not used to interpret this result as normal/abnormal. GRAN MAT (NEUT) % (test code = 770-8) 51.8 % IMM GRAN % (test code = 5861707135) 0.10 % LYMPH % (test code = 736-9) 28.0 % MONO % (test code = 5905-5) 15.1 % EOS % (test code = 713-8) 4.3 % BASO % (test code = 706-2) 0.7 % GRAN MAT x10^3(ANC) (test code = 1661638244) 4.71 10*3/uL 1.88-7.09 IMM GRAN x10^3 (test code = 5392844449) 0.00-0.06 LYMPH x10^3 (test code = 731-0) 2.54 10*3/uL 1.32-3.29 MONO x10^3 (test code = 742-7) 1.37 10*3/uL 0.33-0.92 H EOS x10^3 (test code = 711-2) 0.39 10*3/uL 0.03-0.39 BASO x10^3 (test code = 704-7) 0.06 10*3/uL 0.01-0.07 Lab Interpretation (test code = 99010-2) Abnormal [facility] WITH [id number] 10:54:04* Test Item Value Reference Range Interpretation [...] 33.9 g/dL 31.6-35.1 RDW-SD (test code = 35258-4) 46.5 fL 39.0-49.9 RDW-CV (test code = 788-0) 13.7 % 12.0-15.5 PLT (test code = 777-3) See_Comment [Automated messa ge] The system which generated this result transmitted reference range: 166 - 358 10*3/?L. The reference range was not used to interpret this result as normal/abnormal. MPV (test code = 38931-2) 12.1 fL 9.5-12.9 NRBC/100 WBC (test code = 1222469874) See_Comment [Automated me ssage] The system which generated this result transmitted reference range: 0.0 - 10.0 /100 WBCs. The reference range was not used to interpret this result as normal/abnormal. NRBC x10^3 (test code = 7068461767) See_Comment [Automated messa ge] The system which generated this result transmitted reference range: 10*3/?L. The reference range was not used to interpret this result as normal/abnormal. GRAN MAT (NEUT) % (test code = 770-8) 51.8 % IMM GRAN % (test code = 7945676399) 0.10 % LYMPH % (test code = 736-9) 28.0 % MONO % (test code = 5905-5) 15.1 % EOS % (test code = 713-8) 4.3 % BASO % (test code = 706-2) 0.7 % GRAN MAT x10^3(ANC) (test code = 2620810613) 4.71 10*3/uL 1.88-7.09 IMM GRAN x10^3 (test code = 5208684034) 0.00-0.06 LYMPH x10^3 (test code = 731-0) 2.54 10*3/uL 1.32-3.29 MONO x10^3 (test code = 742-7) 1.37 10*3/uL 0.33-0.92 H EOS x10^3 (test code = 711-2) 0.39 10*3/uL 0.03-0.39 BASO x10^3 (test code = 704-7) 0.06 10*3/uL 0.01-0.07 Lab Interpretation (test code = 18987-5) Abnormal [facility] WITH [id number] 11:37:09* Test Item Value Reference Range Interpretation [...] 33.0 g/dL 31.6-35.1 RDW-SD (test code = 43218-8) 48.3 fL 39.0-49.9 RDW-CV (test code = 788-0) 13.6 % 12.0-15.5 PLT (test code = 777-3) See_Comment [Automated Swopboarda ge] The system which generated this result transmitted reference range: 166 - 358 10*3/?L. The reference range was not used to interpret this result as normal/abnormal. MPV (test code = 06352-7) 12.0 fL 9.5-12.9 NRBC/100 WBC (test code = 4155344520) See_Comment [Automated Sensinode ssage] The system which generated this result transmitted reference range: 0.0 - 10.0 /100 WBCs. The reference range was not used to interpret this result as normal/abnormal. NRBC x10^3 (test code = 3833571574) See_Comment [Automated Swopboarda ge] The system which generated this result transmitted reference range: 10*3/?L. The reference range was not used to interpret this result as normal/abnormal. GRAN MAT (NEUT) % (test code = 770-8) 59.1 % IMM GRAN % (test code = 3063715666) 0.30 % LYMPH % (test code = 736-9) 21.6 % MONO % (test code = 5905-5) 15.2 % EOS % (test code = 713-8) 3.3 % BASO % (test code = 706-2) 0.5 % GRAN MAT x10^3(ANC) (test code = 9444110020) 6.97 10*3/uL 1.88-7.09 IMM GRAN x10^3 (test code = 6687633569) 0.04 10*3/uL 0.00-0.06 LYMPH x10^3 (test code = 731-0) 2.55 10*3/uL 1.32-3.29 MONO x10^3 (test code = 742-7) 1.79 10*3/uL 0.33-0.92 H EOS x10^3 (test code = 711-2) 0.39 10*3/uL 0.03-0.39 BASO x10^3 (test code = 704-7) 0.06 10*3/uL 0.01-0.07 Lab Interpretation (test code = 04374-8) Abnormal [facility] WITH [id number] 11:37:09* Test Item Value Reference Range Interpretation [...] 33.0 g/dL 31.6-35.1 RDW-SD (test code = 47332-5) 48.3 fL 39.0-49.9 RDW-CV (test code = 788-0) 13.6 % 12.0-15.5 PLT (test code = 777-3) See_Comment [Automated messa ge] The system which generated this result transmitted reference range: 166 - 358 10*3/?L. The reference range was not used to interpret this result as normal/abnormal. MPV (test code = 35540-4) 12.0 fL 9.5-12.9 NRBC/100 WBC (test code = 2543851321) See_Comment [Automated Sensinode ssage] The system which generated this result transmitted reference range: 0.0 - 10.0 /100 WBCs. The reference range was not used to interpret this result as normal/abnormal. NRBC x10^3 (test code = 1078851075) See_Comment [Automated messa ge] The system which generated this result transmitted reference range: 10*3/?L. The reference range was not used to interpret this result as normal/abnormal. GRAN MAT (NEUT) % (test code = 770-8) 59.1 % IMM GRAN % (test code = 8710361018) 0.30 % LYMPH % (test code = 736-9) 21.6 % MONO % (test code = 5905-5) 15.2 % EOS % (test code = 713-8) 3.3 % BASO % (test code = 706-2) 0.5 % GRAN MAT x10^3(ANC) (test code = 2841409423) 6.97 10*3/uL 1.88-7.09 IMM GRAN x10^3 (test code = [id number]) 0.04 10*3/uL 0.00-0.06 LYMPH x10^3 (test code = 731-0) 2.55 10*3/uL 1.32-3.29 MONO x10^3 (test code = 742-7) 1.79 10*3/uL 0.33-0.92 H EOS x10^3 (test code = 711-2) 0.39 10*3/uL 0.03-0.39 BASO x10^3 (test code = 704-7) 0.06 10*3/uL 0.01-0.07 Lab Interpretation (test code = 16182-4) Abnormal [facility] METABOLIC PANEL (NA, K, CL, CO2, GLUCOSE, BUN, CREATININE, CA)2022-08-04 11:36:13* Test Item Value Reference Range Interpretation Comme nts NA (test code = 4165009983) 134 mmol/L 135-145 L K (test code = 9658491382) 3.9 mmol/L 3.5-5.0 CL (test code = 8135305947) 97 mmol/L 98-108 L CO2 TOTAL (test code = 9488838062) 28 mmol/L 23-31 AGAP (test code = 6221785891) 2-16 BUN (test code = 5657845892) 28 mg/dL 7-23 H GLUCOSE (test code = 1209468089) 110 mg/dL 70-110 CREATININE (test code = 2052149046) 0.98 mg/dL 0.50-1.04 CALCIUM (test code = 6325773092) 9.0 mg/dL 8.6-10.6 eGFR (test code = 9270587116) mL/min/1.73m2 MIKEY (test code = MIKEY) Association [...] imaging tests). Lab Interpretation (test code = 22245-6) [facility] 11:36:13* Test Item Value Reference Range Interpretation Comme nts MAGNESIUM (test code = 5934522729) 1.9 mg/dL 1.7-2.4 Lab Interpretation (test cod e = 15968-4) [facility] (NA, K, CL, CO2, GLUCOSE, BUN, CREATININE, CA)2022-08-04 11:36:13* Test Item Value Reference Range Interpretation Comme nts NA (test code = 7786291721) 134 mmol/L 135-145 L K (test code = 2559166728) 3.9 mmol/L 3.5-5.0 CL (test code = 7913848397) 97 mmol/L 98-108 L CO2 TOTAL (test code = 9057443092) 28 mmol/L 23-31 AGAP (test code = 5847715961) 2-16 BUN (test code = 1108845667) 28 mg/dL 7-23 H GLUCOSE (test code = 6717875053) 110 mg/dL 70-110 CREATININE (test code = 8034461485) 0.98 mg/dL 0.50-1.04 CALCIUM (test code = 5080919152) 9.0 mg/dL 8.6-10.6 eGFR (test code = 7503250493) mL/min/1.73m2 MIKEY (test code = MIKEY) Association [...] imaging tests). Lab Interpretation (test code = 11949-5) [facility]normal [facility] 11:36:13* Test Item Value Reference Range Interpretation Comme nts MAGNESIUM (test code = 6982125698) 1.9 mg/dL 1.7-2.4 Lab Interpretation (test cod e = 09674-9) Normal [facility]2022-07-29 22:39:30* Test Item Value Reference Range Interpretation Comme nts Height (test code = 9142738599) in Weight (test code = 1305360087) lbs Systolic BP (test code = 6484946597) mmHg Diastolic BP (test code = 6353976172) mmHg Heart Rate (test code = 7147427290) bpm BSA (test code = 3120337573) 1.40 m2 TASV (test code = 3713993912) 13.5 cm/s LAV(MOD-sp4) (test code = 4713297594) 27.60 mL E wave decelartion time (test code = 1985986031) 0.24 s MV Peak E Luzma (test code = 2571190399) 80.1 cm/s MV Peak A Luzma (test code = 9342264473) 45.8 cm/s E/A ratio (test code = 7992594713) ratio LVOT peak luzma (test code = 9787486232) 87.0 cm/s LVOT mn grad (test code = 5683553057) mmHg AV LVOT peak gradient (test code = 0510206675) mmHg LVOT peak VTI (test code = 3888650349) 18.4 cm LV V1 mean (test code = 0676587881) 54.70 cm/s LA Volume Index (BP) (test code = 8885376483) 16.8 mL/m2 LA volume (BP) (test code = 4119491435) 23.4 mL LAV(MOD-sp2) (test code = 6606232057) 20.70 mL Tapse (test code = 4622532501) 2.13 cm LVIDS (test code = 8616224211) 0.00 cm Left Ventricular End Systolic Volume by Teichholz Method (test code = 3485258) 0.00 mL LVIDD (test code = 3909608596) 3.70 cm Left Ventricular End Diastolic Volume by Teichholz Method (test code = 9177622) 59.6 mL IVS (test code = 3703076358) 0.82 cm Interventricular Septum Diastolic Thickness by 2D (test code = 0613625) 0.82 cm LVPWD (test code = 3285220781) 0.94 cm PW (test code = 9852463378) 0.94 cm 0.6-1.1 MV E/e' septal (test code = 1855869846) 9.7 cm/s Radiology Study observation (narrative) (test code = 71643-9) MIKEY (test code = MIKEY) ?Left?Ventricle: Left [...] mL of Definity ultrasound enhancing agent used. [facility]-07-29 22:39:30* Test Item Value Reference Range Interpretation Comme nts Height (test code = 2592058809) in Weight (test code = 9082889533) lbs Systolic BP (test code = 5295925917) mmHg Diastolic BP (test code = 7590720094) mmHg Heart Rate (test code = 0787519568) bpm BSA (test code = 7977084033) 1.40 m2 TASV (test code = 8314375700) 13.5 cm/s LAV(MOD-sp4) (test code = 9275224046) 27.60 mL E wave decelartion time (test code = 1494829157) 0.24 s MV Peak E Luzma (test code = 2053109906) 80.1 cm/s MV Peak A Luzma (test code = 5218617228) 45.8 cm/s E/A ratio (test code = 1533931734) ratio LVOT peak luzma (test code = 5158964441) 87.0 cm/s LVOT mn grad (test code = 1811449529) mmHg AV LVOT peak gradient (test code = 7612297571) mmHg LVOT peak VTI (test code = 1682427522) 18.4 cm LV V1 mean (test code = 4527458471) 54.70 cm/s LA Volume Index (BP) (test code = 5175552024) 16.8 mL/m2 LA volume (BP) (test code = 1191291895) 23.4 mL LAV(MOD-sp2) (test code = 6738629640) 20.70 mL Tapse (test code = 2349890215) 2.13 cm LVIDS (test code = 1684598446) 0.00 cm Left Ventricular End Systolic Volume by Teichholz Method (test code = 0326083) 0.00 mL LVIDD (test code = 8273997537) 3.70 cm Left Ventricular End Diastolic Volume by Teichholz Method (test code = 5227906) 59.6 mL IVS (test code = 0927758310) 0.82 cm Interventricular Septum Diastolic Thickness by 2D (test code = 0536912) 0.82 cm LVPWD (test code = 8783138846) 0.94 cm PW (test code = 2843524923) 0.94 cm 0.6-1.1 MV E/e' septal (test code = 6060637152) 9.7 cm/s Radiology Study observation (narrative) (test code = 57412-7) MIKEY (test code = MIKEY) ?Left?Ventricle: Left [...] mL of Definity ultrasound enhancing agent used. [facility] Confirmation (Lab Only)2022-07-29 13:12:44* Test Item Value Reference Range Interpretation Comme nts ABO & RH (test code = 20) O Positive Performed at [facility] Laboratory Services - [address] [address]Ircz Free: [phone] No. [id number] [facility] Confirmation (Lab Only)2022-07-29 13:12:44* Test Item Value Reference Range Interpretation Comme nts ABO & RH (test code = 20) O Positive Performed at [facility] Laboratory [facility] - [address] [address]Xzox Free: [phone] No. [id number] [facility] - ONCE [id number] 11:59:49* Test Item Value Reference Range Interpretation Comme nts ABO & RH (test code = 20) O POSITIVE Performed at [facility] Laboratory Services - [address] [address]Ktxb Free: [phone] No. [id number] IAT (test code = 1185) Negative Performed at [facility] Laboratory Services - [address] [address]Zlxr Free: [phone] No. [id number] [facility] - ONCE [id number] 11:59:49* Test Item Value Reference Range Interpretation Comme nts ABO & RH (test code = 20) O POSITIVE Performed at [facility] Laboratory Services - [facility] Blood [place] [id number] Free: [phone] No. [id number] IAT (test code = 1185) Negative Performed at [facility] Laboratory Services - [facility] Blood [place] [id number] Free: [phone] No. [id number] [facility]20[facility] 23:49:27* Test Item Value Reference Range Interpretation Comme nts LIPASE (test code = 4520535466) 113 U/L 0-220 Lab Interpretation (test cod e = 96502-8) Normal [facility] 23:49:27* Test Item Value Reference Range Interpretation Comme nts LIPASE (test code = 9235019316) 113 U/L 0-220 Lab Interpretation (test cod e = 23239-9) Normal [facility] Center[facility] WITH [id number] 23:41:45* Test Item Value Reference Range Interpretation [...] 33.4 g/dL 31.6-35.1 RDW-SD (test code = 00899-6) 45.1 fL 39.0-49.9 RDW-CV (test code = 788-0) 13.2 % 12.0-15.5 PLT (test code = 777-3) See_Comment [Automated message] The system which generated this result transmitted reference range: 166 - 358 10*3/?L. The reference range was not used to interpret this result as normal/abnormal. MPV (test code = 07913-2) 12.5 fL 9.5-12.9 NRBC/100 WBC (test code = 6851150374) See_Comment [Automated message] The system which generated this result transmitted reference range: 0.0 - 10.0 /100 WBCs. The reference range was not used to interpret this result as normal/abnormal. NRBC x10^3 (test code = 5647380624) See_Comment [Automated message] The system which generated this result transmitted reference range: 10*3/?L. The reference range was not used to interpret this result as normal/abnormal. GRAN MAT (NEUT) % (test code = 770-8) 90.7 % IMM GRAN % (test code = 2025403210) 0.30 % LYMPH % (test code = 736-9) 7.7 % MONO % (test code = 5905-5) 0.7 % EOS % (test code = 713-8) 0.1 % BASO % (test code = 706-2) 0.5 % GRAN MAT x10^3(ANC) (test code = 1643133801) 13.90 10*3/uL 1.88-7.09 H IMM GRAN x10^3 (test code = 5998981228) 0.04 10*3/uL 0.00-0.06 LYMPH x10^3 (test code = 731-0) 1.18 10*3/uL 1.32-3.29 L MONO x10^3 (test code = 742-7) 0.10 10*3/uL 0.33-0.92 L EOS x10^3 (test code = 711-2) 0.03-0.39 L BASO x10^3 (test code = 704-7) 0.08 10*3/uL 0.01-0.07 H Lab Interpretation (test code = 91877-5) Abnormal [facility] WITH [id number] 23:41:45* Test Item Value Reference Range Interpretation [...] 33.4 g/dL 31.6-35.1 RDW-SD (test code = 46091-4) 45.1 fL 39.0-49.9 RDW-CV (test code = 788-0) 13.2 % 12.0-15.5 PLT (test code = 777-3) See_Comment [Automated message] The system which generated this result transmitted reference range: 166 - 358 10*3/?L. The reference range was not used to interpret this result as normal/abnormal. MPV (test code = 20088-3) 12.5 fL 9.5-12.9 NRBC/100 WBC (test code = 8963587591) See_Comment [Automated message] The system which generated this result transmitted reference range: 0.0 - 10.0 /100 WBCs. The reference range was not used to interpret this result as normal/abnormal. NRBC x10^3 (test code = 0728489854) See_Comment [Automated message] The system which generated this result transmitted reference range: 10*3/?L. The reference range was not used to interpret this result as normal/abnormal. GRAN MAT (NEUT) % (test code = 770-8) 90.7 % IMM GRAN % (test code = 7474149073) 0.30 % LYMPH % (test code = 736-9) 7.7 % MONO % (test code = 5905-5) 0.7 % EOS % (test code = 713-8) 0.1 % BASO % (test code = 706-2) 0.5 % GRAN MAT x10^3(ANC) (test code = 7911292059) 13.90 10*3/uL 1.88-7.09 H IMM GRAN x10^3 (test code = 7223454527) 0.04 10*3/uL 0.00-0.06 LYMPH x10^3 (test code = 731-0) 1.18 10*3/uL 1.32-3.29 L MONO x10^3 (test code = 742-7) 0.10 10*3/uL 0.33-0.92 L EOS x10^3 (test code = 711-2) 0.03-0.39 L BASO x10^3 (test code = 704-7) 0.08 10*3/uL 0.01-0.07 H Lab Interpretation (test code = 42910-4) Abnormal [facility] WITH [id number] 15:56:00* Test Item Value Reference Range Interpretation Comme nts WBC (test code = 6690-2) See_Comment [Automated Swopboarda ge] The system which generated this result transmitted reference range: 4.30 - 11.10 10*3/?L. The reference range was not used to interpret this result as normal/abnormal. RBC (test code = 789-8) See_Comment [Automated Swopboarda ge] The system which generated this result [...] 33.3 g/dL 31.6-35.1 RDW-SD (test code = 64714-7) 46.0 fL 39-49.9 RDW-CV (test code = 788-0) 13.2 % 12-15.5 PLT (test code = 777-3) See_Comment [Automated messa ge] The system which generated this result transmitted reference range: 166 - 358 10*3/?L. The reference range was not used to interpret this result as normal/abnormal. MPV (test code = 02819-5) 11.8 fL 9.5-12.9 NRBC/100 WBC (test code = 9669316459) See_Comment [Automated Sensinode ssage] The system which generated this result transmitted reference range: 0.0 - 10.0 /100 WBCs. The reference range was not used to interpret this result as normal/abnormal. NRBC x10^3 (test code = 7560062741) <0.01 See_Comment [Automated messa ge] The system which generated this result transmitted reference range: 10*3/?L. The reference range was not used to interpret this result as normal/abnormal. GRAN MAT (NEUT) % (test code = 770-8) 57.0 % IMM GRAN % (test code = 9979630386) 0.40 % LYMPH % (test code = 736-9) 29.6 % MONO % (test code = 5905-5) 9.6 % EOS % (test code = 713-8) 2.2 % BASO % (test code = 706-2) 1.2 % GRAN MAT x10^3(ANC) (test code = 1662212783) 5.49 10*3/uL 1.88-7.09 IMM GRAN x10^3 (test code = 2031560783) 0.04 10*3/uL 0-0.06 LYMPH x10^3 (test code = 731-0) 2.86 10*3/uL 1.32-3.29 MONO x10^3 (test code = 742-7) 0.93 10*3/uL 0.33-0.92 H EOS x10^3 (test code = 711-2) 0.21 10*3/uL 0.03-0.39 BASO x10^3 (test code = 704-7) 0.12 10*3/uL 0.01-0.07 H Lab Interpretation (test code = 59132-3) Abnormal [facility] with [id number] 23:33:00* Test Item Value Reference Range Interpretation [...] code = ALYMPH) 3.4 K/cumm 0.5-4.6 N [place] Abs (test code = AMONO) 0.7 K/cumm 0.0-1.2 N Eos Abs (test code = AEOS) 0.10 K/cumm 0.00-0.74 N Baso Abs (test code = ABASO) 0.1 K/cumm 0.00-0.21 N Lipid [id number] 23:22:00* Test Item Value Reference Range Interpretation Comme nts Cholesterol (test code = CHOL) 136 mg/dL 0-200 N Triglycerides (test code = TRIG) 100 mg/dL 9-200 N HDL (test code = HDL) 53 mg/dL 50-60 N Chol/HDL (test code = CHOLPHDL) 2.6 Ratio 0.0-4.4 N LDL, Calculated (test code = LDLC) 63 mg/dL 0-130 N (NOTE)RISK OF HEART DISEASEPublished by Citizen Of [place] Heart AssociationAnalyte Optimal Boderline Increased RiskCHOL <200 200-239 >240TRIG <150 150-199 >200HDL Male: >60 <40HDL Female: >60 <50LDL <100 130-159 >160LDL NEAR OPTIMAL IS 100-129 VLDL (test code = VLDL) 20 mg/dL 5-40 N LDL/HDL (test code = LDLPHDL) 1 Comprehensive Metabolic [id number] 23:22:00* Test Item Value Reference Range Interpretation [...] race is not provided, and the patient isAfrican-Citizen Of [place], multiply by 1.212. If sex is not [...] externally. 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 Martin. She understands that new imaging is needed. Patient is reporting that in January 2023, she fell and bruised her left arm. Not having any symptoms at this time. Jacy Marks [facility] 2023-03-08 13:30:54 Formatting of this n ote might be different from the original. order/OT re evaluation paperwork signed by provider and faxed to [facility] Staff Relief at this time Betty Fraga RN [facility]"
[2025-02-27] MEDS ORDERED: FAMOTIDINE 20 MG/2 ML VIAL IV ONE (09:49)
[2025-02-27] MEDS ORDERED: NA CHLORIDE 0.9% 1,000 ML ONE (09:49)
[2025-02-27] MEDS ORDERED: ONDANSETRON 4 MG/2 ML VIAL ONE (09:49)
[2025-02-27 10:17] LABS: Absolute Lymphocytes (CBC) 0.8 K/uL (0.7-4.9); Hematocrit 39.6 % (36.0-45.0); Hemoglobin 13.1 g/dL (12.0-15.0); MCH 30.3 pg (27.0-35.0); MCHC 33.1 g/dL (32.0-36.0); MCV 91.7 fL (80-100); MPV 10.8 fL (7.6-11.3); Nucleated RBC Absolute Count 0.0 (0-0); Nucleated Red Blood Cells % 0.0 % (0-0); RBC Red Blood Cell Count 4.32 M/uL (3.86-4.86); White Blood Count 6.50 thou/uL (4.3-10.9)
[2025-02-27 10:37] LABS: ALT/SGPT 41.0 U/L (13-56); AST/SGOT 48.0 U/L (15-37); Albumin 3.3 g/dL (3.4-5.0); Albumin/Globulin Ratio 1.0 (1.1-1.8); Alkaline Phosphatase 64.0 U/L (45-117); Anion Gap 9.0 mEq/L (5.0-15.0); BUN Blood Urea Nitrogen 23.0 mg/dL (7-18); Globulin 3.4 g/dL (2.3-3.5); Glucose Level 97.0 mg/dL (74-106); Lipase 45.0 U/L (13-75); Potassium 4.0 mEq/L (3.5-5.1)
[2025-02-27 10:41] LABS: Influenza A Ag Negative; Influenza B Ag Negative
[2025-02-27 10:42] LABS: SARS-CoV-2 Antigen Rapid Res Positive (Negative)
[2025-02-27 11:11] LABS: Differential Total Cells Count 100
[2025-02-27 11:12] LABS: Blood Morphology Comment NOT SEEN (NOT SEEN); Segmented Neutrophils 64 % (40-80)
--- NOTE | 2025-02-27 11:51 | RAD REPORT ---
EXAMINATION: CT ABDOMEN AND PELVIS WITH CONTRAST CLINICAL INDICATION: v/d, fever TECHNIQUE: CT abdomen and pelvis was performed, after the administration of IV contrast, as per [facility]. Axial, sagittal and coronal reconstructions were obtained. One or more of the following dose reduction techniques were used: Automated exposure control, adjustment of the mA and k V according to patient size, and iterative reconstruction. Unless otherwise specified, incidental findings do not require dedicated imaging follow-up. COMPARISON: 11/09/2024 FINDINGS: LOWER CHEST: Mildly emphysematous lung bases. Small hiatal hernia. LIVER: Mild fatty liver is present. No focal lesion or biliary dilatation is seen. Grossly unremark able gallbladder. SPLEEN: Normal size. No focal lesion. PANCREAS: No mass, ductal dilation, or randee-pancreatic fluid. ADRENALS: Normal; no mass. KIDNEYS: Normal size and contour. No hydronephrosis. Small benign cysts bilateral kidneys. GASTROINTESTINAL TRACT: Moderate diverticulosis coli sigmoid colon without diverticulitis. No evidenc e of free air, significant intra-abdominal free fluid, bowel obstruction or abscess. APPENDIX: Normal appendix. LYMPH NODES: No lymphadenopathy. MUSCULOSKELETAL: Moderate thoracolumbar levoscoliosis. ADDITIONAL FINDINGS: Aorto iliac atherosclerotic calcific lesions. IMPRESSION: No acute abnormalities seen in the abdomen or pelvis. Moderate sigmoid diverticulosis coli.
--- NOTE | 2025-02-27 11:58 | EDPHYS ---
Physician Documentation [facility] Name: Germania Bañuelos Age: 75 yrs Sex: Female : 1950 Arrival Date: 02/27/2025 Time: 08:47 Bed 16 Private MD: ED Physician Clarence Adan HPI: 02/27 08:53 This 75 yrs old Female presents to ER via Unassigned with complaints of kb Nausea/Vomiting/Diarrhea, Dizziness, Fatigue. 08:53 Pt is a 75 year old female who presents for n/v/d and fatigue that started 2 days ago. kb Denies abd pain. States she has had a fever up to 102 last night. States this happens about once a year and it makes her WBC go up so she ends up being admitted. Last time was in October for 10 days. . Historical: - Allergies: 09:02 Darvon; dd2 09:02 Demerol; dd2 09:02 Tamiflu; dd2 - PMHx: 09:02 COPD; Hyperlipidemia; Hypertension; Osteoporosis; shoulder pain; CAD (neck); dd2 - PSHx: 09:02 neck; CARDIAC STENTS (neck); dd2 - Immunization history:: Adult Immunizations unknown. - Infectious Disease History:: Denies. - Social history:: Smoking status: Patient/guardian denies using tobacco, the patient reports quitting approximately 3 years ago. ROS: 08:55 Constitutional: As per HPI kb Exam: 08:55 Constitutional: This is a well developed, well nourished patient who is awake, alert, kb and in no acute distress. Head/Face: Normocephalic, atraumatic. ENT: Moist Mucous membranes Cardiovascular: Regular rate Respiratory: Respirations even and unlabored. No increased work of breathing. Talking in full sentences Abdomen/GI: Soft, non-tender. No distention Skin: Warm, dry with normal turgor. Normal color. MS/ Extremity: Pulses equal, no cyanosis. Neurovascular intact. Full, normal range of motion. Neuro: Awake and alert, GCS 15, oriented to person, place, time, and situation. Vital Signs: 09:00 BP 98 / 52; Pulse 78; Resp 16; Temp 99.9; Pulse Ox 95% ; Weight 49.9 kg; Pain 8/10; dd2 10:00 BP 124 / 46; Pulse 77; Resp 16; Pulse Ox 92% on R/A; bp 11:00 BP 137 / 50; Pulse 76; Resp 16; Pulse Ox 92% ; me1 11:45 BP 130 / 51; Pulse 80; Resp 15; Pulse Ox 94% on R/A; me1 09:00 Pain Scale: Adult dd2 MDM: 08:52 Medical Screening Exam initiated kb 08:55 Data reviewed: vital signs, nurses notes. kb 11:56 Differential diagnosis: viral gastroenteritis, covid, flu, dehydration, abnormal kb electrolytes, diverticulitis. Consideration of Admission/Observation Escalation of care including admission/observation considered. admission considered but pt pt tolerating po intake, nontoxic in appearance, labs reassuring. I considered the following discharge prescriptions or medication management in the emergency department I discussed and recommended Over The Counter medications, Antibiotics: At this time antibiotics are not recommended. Counseling: I had a detailed discussion with the patient and/or guardian regarding the historical points, exam findings, and any diagnostic results supporting the discharge/admit diagnosis, lab results, radiology results, the need for outpatient follow up, a family practitioner, to return to the emergency department if symptoms worsen or persist or if there are any questions or concerns that arise at home. 02/27 08:55 Order name: CBC with Diff; Complete Time: 11:14 kb 02/27 08:55 Order name: CMP; Complete Time: 10:46 kb 02/27 08:55 Order name: Lipase; Complete Time: 10:46 kb 02/27 08:55 Order name: COVID-19 Ag + Flu A+B Ag; Complete Time: 10:46 kb 02/27 10:19 Order name: Manual Differential; Complete Time: 11:14 EDMS 02/27 08:55 Order name: CT Abd/Pelvis - IV Contrast Only; Complete Time: 11:52 kb 02/27 08:55 Order name: IV Saline Lock; Complete Time: 10:00 kb 02/27 08:55 Order name: Labs collected and sent; Complete Time: 10:00 kb Administered Medications: 10:01 Drug: Famotidine IVP 20 mg IVP once; dilute with 10 mL 0.9% NaCl; give over 2 minutes bp Route: IVP; Site: left forearm; 10:41 Follow up: Response: No adverse reaction bp 10:01 Drug: Ondansetron IVP 4 mg IVP once; over 2 minutes Route: IVP; Site: left forearm; bp 10:41 Follow up: Response: No adverse reaction; Nausea is decreased bp 10:01 Drug: NS 0.9% IV 1000 ml IV at 1 bolus Per protocol; to be given as a bolus over 60 bp minutes Route: IV; Rate: 1 bolus; Site: left forearm; 11:05 Follow up: Response: No adverse reaction; IV Status: Completed infusion; IV Intake: bp 1000ml Disposition: 16:01 I was immediately available on-site in the Emergency Department for consultation in the ms3 care of the patient. Disposition Summary: 02/27/25 11:57 Discharge Ordered Notes: Location: Home kb Condition: Stable kb Diagnosis - SARS-associated coronavirus as the cause of diseases classified elsewhere kb - Nausea with vomiting, unspecified kb Followup: kb - With: Emergency Department - When: As needed - Reason: Worsening of condition Followup: kb - With: Private Physician - When: 2 - 3 days - Reason: Recheck today's complaints, Continuance of care, Re-evaluation by your physician Discharge Instructions: - Discharge Summary Sheet kb - Nausea and Vomiting, Adult, [id number] kb - COVID-19 kb - Viral Illness, Adult kb Forms: - Medication Reconciliation Form kb - Antibiotic Education kb - Prescription Opioid Use kb - Patient Portal Instructions kb - Leadership Thank You Letter kb Prescriptions: - ondansetron 4 mg Oral Tablet,disintegrating - take 1 tablet ORAL route every 6 hours as needed for nausea and vomiting; 12 kb tablet; Refills: 0, Product Selection Permitted Signatures: Dispatcher [employer] EDNY Loyda Aragon, FIRST FRONT VENTILATOR-C FIRST FRONT VENTILATOR-Shahram Chen, RN RN Clarence Dexter DO DO ms3 ALEXIA SWEENEY, RN RN dd2 Corrections: (The following items were deleted from the chart) 08:56 08:56 CBC+H.LAB.BRZ ordered. EDMS EDMS 08:56 08:56 COMPREHENSIVE METABOLIC PANEL+C.LAB.BRZ ordered. EDMS EDMS 08:56 08:56 LIPASE+C.LAB.BRZ ordered. EDMS EDMS 08:56 08:56 COVID-19 Ag + Flu A+B Ag+I.LAB.BRZ ordered. EDMS EDMS 08:56 08:56 Abdomen Pelvis W Con+CT.RAD.BRZ ordered. EDMS EDMS 08:56 08:53 Pt is a 75 year old female who presents for n/v/d and fatigue that started 2 days kb ago. Denies abd pain. States she has had a fever up to 102 last night. . kb
--- NOTE | 2025-02-27 11:58 | ER ---
Nurse's Notes [facility] Name: Germania Bañuelos Age: 75 yrs Sex: Female : 1950 Arrival Date: 02/27/2025 Time: 08:47 Bed 16 Private MD: Diagnosis: SARS-associated coronavirus as the cause of diseases classified elsewhere;Nausea with vomiting, unspecified Presentation: 02/27 09:00 Chief complaint: Patient states: NAUSEA, VOMITING SINCE TUESDAY AND FEVER 102 LAST dd2 NIGHT. PT REPORTS SOME CONGESTION. Coronavirus screen: congestion, diarrhea, fever, muscle pain, nausea, shaking with chills, vomiting. Ebola Screen: No symptoms or risks identified at this time. Initial Sepsis Screen: Does the patient meet any 2 criteria? No. Patient's initial sepsis screen is negative. Does the patient have a suspected source of infection? No. Patient's initial sepsis screen is negative. Risk Assessment: Do you want to hurt yourself or someone else? Patient reports no desire to harm self or others. Onset of symptoms was February 25, 2025. 09:00 Method Of Arrival: Ambulatory dd2 09:00 Acuity: MIGUEL 3 dd2 Triage Assessment: 09:02 General: Appears in no apparent distress. uncomfortable, Behavior is calm, cooperative, dd2 appropriate for age. Pain: Complains of pain in GENERALIZED Pain currently is 8 out of 10 on a pain scale. EENT: Reports nasal congestion. Neuro: Reports dizziness. Respiratory: Reports. GI: Reports nausea, vomiting. Historical: - Allergies: 09:02 Darvon; dd2 09:02 Demerol; dd2 09:02 Tamiflu; dd2 - PMHx: 09:02 COPD; Hyperlipidemia; Hypertension; Osteoporosis; shoulder pain; CAD (neck); dd2 - PSHx: 09:02 neck; CARDIAC STENTS (neck); dd2 - Immunization history:: Adult Immunizations unknown. - Infectious Disease History:: Denies. - Social history:: Smoking status: Patient/guardian denies using tobacco, the patient reports quitting approximately 3 years ago. Screenin:00 [facility] ED Fall Risk Assessment (Adult) History of falling in the last 3 months, bp including since admission No falls in past 3 months (0 pts) Confusion or Disorientation No (0 pts) Intoxicated or Sedated No (0 pts) Impaired Gait No (0 pts) Mobility Assist Device Used No (0 pt) Altered Elimination No (0 pt) Score/Fall Risk Level 0 - 2 = Low Risk Maintained a safe environment, Provided non-skid footwear, Hourly rounding (assess needs \T\ fall precautionary measures) done. Abuse screen: Denies threats or abuse. Nutritional screening: No deficits noted. Tuberculosis screening: No symptoms or risk factors identified. Assessment: 10:00 General: Appears in no apparent distress. Behavior is calm, cooperative, appropriate bp for age, Reports NAUSEA, VOMITING SINCE TUESDAY AND FEVER 102 LAST NIGHT. PT REPORTS SOME CONGESTION. Pain: Denies pain. Neuro: Level of Consciousness is awake, alert, obeys commands, Oriented to person, place, time, situation, Appropriate for age. Cardiovascular: Patient's skin is warm and dry. Respiratory: Airway is patent Respiratory effort is even, unlabored, Respiratory pattern is regular, symmetrical. GI: Abdomen is non-distended, Reports nausea, vomiting, since Tuesday. : No signs and/or symptoms were reported regarding the genitourinary system. EENT: Reports nasal congestion since Tuesday. Derm: Skin is intact, is healthy with good turgor, Skin is pink, warm \T\ dry. Musculoskeletal: Circulation, motion, and sensation intact. Range of motion: intact in all extremities. Vital Signs: 09:00 BP 98 / 52; Pulse 78; Resp 16; Temp 99.9; Pulse Ox 95% ; Weight 49.9 kg; Pain 8/10; dd2 10:00 BP 124 / 46; Pulse 77; Resp 16; Pulse Ox 92% on R/A; bp 11:00 BP 137 / 50; Pulse 76; Resp 16; Pulse Ox 92% ; me1 11:45 BP 130 / 51; Pulse 80; Resp 15; Pulse Ox 94% on R/A; me1 09:00 Pain Scale: Adult dd2 ED Course: 08:49 Patient arrived in ED. cj3 08:52 Loyda Aragon FNP-C is PHCP. kb 08:52 Clarence Adan DO is Attending Physician. kb 09:02 Triage completed. dd2 09:02 Arm band placed on right wrist. dd2 09:32 Shahram Santos, RN is Primary Nurse. bp 10:00 Patient has correct armband on for positive identification. Bed in low position. Call bp light in reach. Side rails up X2. Provided Education on: POC. Verbalized understanding.. Client placed on continuous cardiac and pulse oximetry monitoring. NIBP monitoring applied. Pulse ox on. NIBP on. 10:00 Initial lab(s) drawn, by me, sent to lab. COVID swab sent to lab. Flu and/or RSV swab bp sent to lab. Inserted saline lock: 22 gauge in left forearm, using aseptic technique. Blood collected. Flushed with 10 mL NS. 10:00 No provider procedures requiring assistance completed. bp 10:42 Notified Nurse Practitioner and/or Physician Site Engineer of a critical lab result(s), bp covid +. 11:09 CT Abd/Pelvis - IV Contrast Only In Process Unspecified. EDMS 12:08 IV discontinued, intact, bleeding controlled, No redness/swelling at site. Pressure me1 dressing applied. Administered Medications: 10:01 Drug: Famotidine IVP 20 mg IVP once; dilute with 10 mL 0.9% NaCl; give over 2 minutes bp Route: IVP; Site: left forearm; 10:41 Follow up: Response: No adverse reaction bp 10:01 Drug: Ondansetron IVP 4 mg IVP once; over 2 minutes Route: IVP; Site: left forearm; bp 10:41 Follow up: Response: No adverse reaction; Nausea is decreased bp 10:01 Drug: NS 0.9% IV 1000 ml IV at 1 bolus Per protocol; to be given as a bolus over 60 bp minutes Route: IV; Rate: 1 bolus; Site: left forearm; 11:05 Follow up: Response: No adverse reaction; IV Status: Completed infusion; IV Intake: bp 1000ml Medication: 10:00 VIS not applicable for this client. bp Intake: 11:05 IV: 1000ml; Total: 1000ml. bp Outcome: 11:57 Discharge ordered by MD. martin 12:08 Discharged to home via wheelchair, with family, me1 12:08 Condition: stable 12:08 Discharge instructions given to patient, Instructed on discharge instructions, follow up and referral plans. medication usage, Demonstrated understanding of instructions, follow-up care, medications, Prescriptions given X 1, 12:09 Patient left the ED. me1 Signatures: Dispatcher [employer] EDLoyda Zaragoza, EDEL DICKSONP-Ckb Shahram Santos, RN RN bp Elizabet Ramsay RN RN me1 ALEXIA SWEENEY RN RN dd2 Ariela Marte cj3 Corrections: (The following items were deleted from the chart) 10:39 09:00 Chief complaint: Patient states: NAUSEA, VOMITING SINCE TUESDAY AND FEVER 102 LAST bp NIGHT. PT REPORTS SOME CONGESTION. dd2
[2025-02-27 12:16] VITALS: TEMP 99.9
[2025-02-27 12:19] VITALS: BP 130/51; O2SAT 94
== END 2025-02-27 12:09 | disposition home or self-care (01) ==
LOC: ER 08:47
DX: U07.1 COVID-19 (principal); J44.9 Chronic obstructive pulmonary disease, unspecified; I10 Essential (primary) hypertension; Z95.818 Presence of other cardiac implants and grafts
CPT/HCPCS: 96361; 85025; 36415; 83690; 80053; 74177; 96375; 96374; 99284; 87428; Q9967; J2405; J7030

== ENCOUNTER 2025-05-17 12:37 | Emergency (ER) | payer OTHER ==
[2025-05-17] MEDS ORDERED: predniSONE 20 MG TAB ONE (12:55)
[2025-05-17] MEDS ORDERED: LEVALBUTEROL 1.25 MG/3 ML NEB ONE (12:56)
[2025-05-17 13:37] LABS: Influenza A Ag Negative; Influenza B Ag Negative; SARS-CoV-2 Antigen Rapid Res Negative (Negative)
--- NOTE | 2025-05-17 13:53 | RAD REPORT ---
EXAMINATION: ONE VIEW CHEST XR CLINICAL INDICATION: Female, 75 years old.,COUGH TECHNIQUE: Frontal chest projection is submitted. Examination is limited by patient positioning and t echnique. COMPARISON: 11/11/2024 FINDINGS: The lungs are well inflated and clear. No pneumothorax or sizable effusion. The heart is normal in s ize. Mediastinal contours are unremarkable. IMPRESSION: No acute intrathoracic abnormalities.
--- NOTE | 2025-05-17 14:11 | ER ---
Nurse's Notes [facility] Name: Germania Bañuelos Age: 75 yrs Sex: Female : 1950 Arrival Date: 05/17/2025 Time: 12:37 Bed 6 Private MD: Diagnosis: Cough;COPD/ Chronic obstructive pulmonary disease with acute lower respiratory infection Presentation: 05/17 12:43 Chief complaint: Patient states: COUGH, SORE THROAT AND NAUSEA X 2 DAYS. DENIES TAKING dd2 ANY OTC MEDS. Coronavirus screen: cough unrelated to allergies, nausea, runny nose, sore throat. Ebola Screen: No symptoms or risks identified at this time. Initial Sepsis Screen: Does the patient meet any 2 criteria? No. Patient's initial sepsis screen is negative. Does the patient have a suspected source of infection? No. Patient's initial sepsis screen is negative. Risk Assessment: Do you want to hurt yourself or someone else? Patient reports no desire to harm self or others. Onset of symptoms was May 15, 2025. 12:43 Method Of Arrival: Ambulatory dd2 12:43 Acuity: MIGUEL 3 dd2 Triage Assessment: 12:45 General: Appears in no apparent distress. uncomfortable, Behavior is calm, cooperative, dd2 appropriate for age. Pain: Complains of pain in throat Pain currently is 8 out of 10 on a pain scale. EENT: Reports difficulty swallowing nasal discharge pain when swallowing. 12:45 Respiratory: Reports cough that is non-productive. dd2 Historical: - Allergies: 12:45 Darvon; dd2 12:45 Demerol; dd2 12:45 Tamiflu; dd2 - PMHx: 12:45 CAD (neck); COPD; Hyperlipidemia; Hypertension; Osteoporosis; shoulder pain; dd2 - PSHx: 12:45 cardiac stents (neck); neck; dd2 - Social history:: Smoking status: Reported history of juuling and/or vaping. - Family history:: not pertinent. - Hospitalizations: : No recent hospitalization is reported. Screenin:00 [facility] ED Fall Risk Assessment (Adult) History of falling in the last 3 months, hb including since admission No falls in past 3 months (0 pts) Confusion or Disorientation No (0 pts) Intoxicated or Sedated No (0 pts) Impaired Gait No (0 pts) Mobility Assist Device Used No (0 pt) Altered Elimination No (0 pt) Score/Fall Risk Level 0 - 2 = Low Risk Oriented to surroundings, Maintained a safe environment, Educated pt \T\ family on fall prevention, incl call for assistance when getting out of bed. Abuse screen: Denies threats or abuse. Denies injuries from another. Nutritional screening: No deficits noted. Tuberculosis screening: No symptoms or risk factors identified. Assessment: 13:00 General: Appears in no apparent distress. Behavior is calm, cooperative. Neuro: GCS15. hb Respiratory: Airway is patent Respiratory effort is even, unlabored, Respiratory pattern is regular, symmetrical. Vital Signs: 12:43 BP 151 / 69; Pulse 79; Resp 17; Temp 98(O); Pulse Ox 100% on R/A; Weight 74.84 kg; Pain dd2 8/10; 12:53 BP 191 / 71; Pulse 74; Resp 16; Temp 97.8; Pulse Ox 97% ; Weight 62.5 kg; Height 5 ft. pm7 0 in. ; Pain 7/10; 12:53 Body Mass Index 26.91 (62.50 kg, 152.4 cm) pm7 12:43 Pain Scale: Adult dd2 12:53 Pain Scale: Adult pm7 ED Course: 12:40 Patient arrived in ED. al6 12:41 Salo Piper MD is Attending Physician. rn 12:45 Triage completed. dd2 12:45 Arm band placed on right wrist. dd2 13:00 Patient has correct armband on for positive identification. Bed in low position. Call hb light in reach. Provided Education on: tests, result times. 13:00 No provider procedures requiring assistance completed. Patient did not have IV access hb during this emergency room visit. 13:12 Group A Streptococcus Rapid Sent. hb 13:13 COVID-19 Ag + Flu A+B Ag Sent. hb 13:28 XRAY Chest (1 view) In Process Unspecified. EDMS 14:04 Coretta Simons, RN is Primary Nurse. hb Administered Medications: 13:12 Drug: Levalbuterol Inhalation 1.25 mg Inhalation once Route: Inhalation; hb 13:12 Drug: predniSONE PO 60 mg PO once Route: PO; hb Medication: 14:06 VIS not applicable for this client. hb Outcome: 14:11 Discharge ordered by . rn 14:13 Patient left the ED. hb Signatures: Dispatcher [employer] EDMS Salo Piper MD MD rn Baxter, Heather, RN RN hb DAVIS, DIANA, RN RN dd2 Arti Johnson al6 Suni Snow pm7 Corrections: (The following items were deleted from the chart) 12 12:43 Chief complaint: Patient states: COUGH, SORE THROAT AND NAUSEA X 2 DAYS. dd2 dd2 12 12:43 Acuity: MIGUEL 4 dd2 dd2
--- NOTE | 2025-05-17 14:11 | EDPHYS ---
Physician Documentation [facility] Name: Germania Bañuelos Age: 75 yrs Sex: Female : 1950 Arrival Date: 05/17/2025 Time: 12:37 Bed 6 Private MD: ED Physician Salo Piper HPI: 05/17 13:40 This 75 yrs old Female presents to ER via Ambulatory with complaints of Cough, Sore rn Throat, Nausea. 13:40 Patient reports 2 days of cough and shortness of breath. Has COPD at baseline. No rn oxygen requirement. Patient reports 2 grandchildren were sick with cough and diagnosed with bronchitis. Now patient reports she has it. No abdominal pain. No vomiting. No diarrhea.. Historical: - Allergies: 12:45 Darvon; dd2 12:45 Demerol; dd2 12:45 Tamiflu; dd2 - PMHx: 12:45 CAD (neck); COPD; Hyperlipidemia; Hypertension; Osteoporosis; shoulder pain; dd2 - PSHx: 12:45 cardiac stents (neck); neck; dd2 - Social history:: Smoking status: Reported history of juuling and/or vaping. - Family history:: not pertinent. - Hospitalizations: : No recent hospitalization is reported. ROS: 13:40 Constitutional: Negative for fever, chills, and weight loss, Neck: Negative for injury, rn pain, and swelling, Cardiovascular: Negative for chest pain, palpitations, and edema, Respiratory: Positive for cough and shortness of breath Abdomen/GI: Positive for nausea, negative for abdominal pain or vomiting MS/Extremity: Negative for injury and deformity, Neuro: Negative for headache, weakness, numbness, tingling, and seizure, Exam: 13:40 Constitutional: This is a well developed, well nourished patient who is awake, alert, rn and in no acute distress. Cardiovascular: Regular rate and rhythm. No pulse deficits. Respiratory: Speaking full sentences, mild tachypnea Abdomen/GI: Soft, nontender Neuro: Awake and alert, GCS 15 Vital Signs: 12:43 BP 151 / 69; Pulse 79; Resp 17; Temp 98(O); Pulse Ox 100% on R/A; Weight 74.84 kg; Pain dd2 8/10; 12:53 BP 191 / 71; Pulse 74; Resp 16; Temp 97.8; Pulse Ox 97% ; Weight 62.5 kg; Height 5 ft. pm7 0 in. ; Pain 7/10; 12:53 Body Mass Index 26.91 (62.50 kg, 152.4 cm) pm7 12:43 Pain Scale: Adult dd2 12:53 Pain Scale: Adult pm7 MDM: 12:41 Medical Screening Exam initiated rn 14:00 Differential Diagnosis: Bronchitis Influenza Upper Respiratory Infection Sinusitis rn Pharyngitis Viral Syndrome Pneumonia. Data reviewed: vital signs, nurses notes, lab test result(s), radiologic studies, plain films, and as a result, I will discharge patient. Independent interpretation of the following test(s) in the Emergency Department X-Ray: My interpretation is Chest x-ray images negative for pneumonia or pneumothorax per my interpretation. school bus monitor: rate is 74 beats/min, Rhythm is normal sinus rhythm, regular, with no ectopy, Interpretation: normal rate, normal rhythm. Care significantly affected by the following chronic conditions: Hypertension, Chronic Obstructive Pulmonary Disease. Counseling: I had a detailed discussion with the patient and/or guardian regarding the historical points, exam findings, and any diagnostic results supporting the discharge/admit diagnosis, lab results, radiology results, the need for outpatient follow up, to return to the emergency department if symptoms worsen or persist or if there are any questions or concerns that arise at home. Response to treatment: the patient's symptoms have mildly improved after treatment, and as a result, I will discharge patient. Special discussion: I discussed with the patient/guardian in detail that at this point there is no indication for admission to the hospital. It is understood, however, that if the symptoms persist or worsen the patient needs to return immediately for re-evaluation. 05/17 13:02 Order name: COVID-19 Ag + Flu A+B Ag; Complete Time: 13:58 rn 05/17 13:02 Order name: Group A Streptococcus Rapid; Complete Time: 13:58 rn 05/17 13:35 Order name: Throat Culture [facility] 05/17 13:02 Order name: XRAY Chest (1 view); Complete Time: 13:58 rn Administered Medications: 13:12 Drug: Levalbuterol Inhalation 1.25 mg Inhalation once Route: Inhalation; hb 13:12 Drug: predniSONE PO 60 mg PO once Route: PO; hb Disposition Summary: 05/17/25 14:11 Discharge Ordered Notes: Location: Home rn Problem: new rn Symptoms: have improved rn Condition: Stable rn Diagnosis - Cough rn - COPD/ Chronic obstructive pulmonary disease with acute lower respiratory infection rn Followup: rn - With: Private Physician - When: As needed - Reason: Recheck today's complaints, Re-evaluation by your physician Discharge Instructions: - Discharge Summary Sheet rn - Chronic Obstructive Pulmonary Disease rn - Cough, Adult rn Forms: - Medication Reconciliation Form rn - Antibiotic biomedical engineering internship - Prescription Opioid Use rn - Patient Portal Instructions rn - Leadership Thank You Letter rn Prescriptions: - Prednisone 20 mg Oral Tablet - take 3 tablets ORAL route once daily for 5 days; 15 tablet; Refills: 0, Product rn Selection Permitted - Zithromax Z-Brandon 250 mg Oral Tablet - take 1 tablet ORAL route as directed for 5 days Day 1 - take two (2) tablets rn one time. Day 2, 3, 4 , 5 take one (1) tablet once daily.; 6 tablet; Refills: 0, Product Selection Permitted Signatures: Dispatcher [employer] EDSalo Aguayo MD MD rn Baxter, Heather, RN RN hb DAVIS, DIANA, RN RN dd2
[2025-05-17 14:23] VITALS: BP 191/71; TEMP 97.8; O2SAT 97
== END 2025-05-17 14:13 | disposition home or self-care (01) ==
LOC: ER 12:37
DX: J44.0 Chronic obstructive pulmonary disease with (acute) lower respiratory infection (principal); Z11.52 Encounter for screening for COVID-19
CPT/HCPCS: 87070; 36415; 71045; 99284; 87428; J7512; J7614